=== PATIENT | male | born 1980 | race Two or more races ===

== ENCOUNTER 2024-11-11 19:23 | Inpatient (IN) | payer OTHER ==
[~2024-11-11] VITALS: Ht 182.9 cm; Wt 138.9 kg
--- NOTE | 2024-11-11 20:22 | DVH ---
CHEST RADIOGRAPH Indication: fever, covid + Technique: Single frontal view of the chest was obtained COMPARISON: None FINDINGS: Lines and Tubes: None Lungs: Clear Pleura: No effusion. No pneumothorax. Cardiomediastinal contours: Unremarkable IMPRESSION: No acute disease.
--- NOTE | 2024-11-11 20:24 | DVH ---
CT HEAD WITHOUT CONTRAST INDICATION: blurred vision COMPARISON: None TECHNIQUE: CT of the head without intravenous contrast. RADIATION DOSE: CTDIvol: mGy, DLP: mGy*cm FINDINGS: There is no evidence of intracranial hemorrhage, infarct, extra-axial collection, mass effect, midlin e shift, herniation or hydrocephalus. The ventricles, sulci and cisterns are normal. The owen-white d ifferentiation is intact. Visualized paranasal sinuses and mastoid air cells are clear. Soft tissues and osseous structures are unremarkable. IMPRESSION: No intracranial abnormality identified.
--- NOTE | 2024-11-11 20:25 | ED.PDOC ---
History of Present Illness HPI Comments 44y M who presents to the ED for multiple complaints. Pt states he tested positive for COVID 5 days ago and states since, he has been having multiple symptoms. Pt states he has been having fever, chills, headache, nausea, diarrhea, blurred vision and new onset testicular pain. Pt states his headache started four days ago and stopped yesterday. Pt states he has been having blurred vision which started at 1400 yesterday and states he gets blurred vision when looking with both eyes but states his vision is clear when attempting to cover one eye and use the other. Pt states he has also been having bilateral testicular pain but denies any associated redness, swelling, trauma or urinary symptoms.. Pt states he has noticed over this time period, he has been having generalized malaise and states he has been having decreased appetite with associated nausea when attempting to eat food. Pt otherwise has noted temp of 101.2 F, heart rate 102, but otherwise stable vitals including 02 sat of 96% on room air, rr 18, and BP of 128/83. Pt denies any other symptoms at this time. Chief Complaint: multiple complaints Time Seen by MD: 20:22 Reviewed Notes: Medications, Allergies Allergies: Coded Allergies: NO KNOWN ALLERGIES (Unverified , 11/11/24) Information Source: Patient Mode of Arrival: Ambulatory Past Medical History PAST MEDICAL HISTORY: Denies Surgical History: Denies all surgeries Family History Family History: Reviewed,noncontributory to illness Social History Smoker: Non-Smoker Alcohol: Denies ETOH Use Drugs: Denies Drug Use Lives In: Home Constitutional: reports: chills, fever, malaise, weakness; denies: diaphoresis, fatigue, sweats, others EENTM: reports: blurred vision; denies: double vision, ear bleeding, ear discharge, ear drainage, ear pain, ear ringing, eye pain, eye redness, hearing loss, mouth pain, mouth swelling, nasal discharge, nose bleeding, nose congestion, nose pain, photophobia, tearing, throat pain, throat swelling, voice changes, others Respiratory: denies: cough, hemoptysis, orthopnea, SOB at rest, shortness of breath, SOB with excertion, stridor, wheezing, others Cardiovascular: denies: chest pain, dizzy spells, diaphoresis, Dyspnea on exertion, edema, irregular heart beat, left arm pain, lightheadedness, palpitations, PND, syncope, others Gastrointestinal: reports: diarrhea, nausea; denies: abdomen distended, abdominal pain, blood streaked bowels, constipated, dysphagia, difficulty swallowing, hematemesis, melena, poor appetite, poor fluid intake, rectal bleeding, rectal pain, vomiting, others Genitourinary: reports: testicle pain; denies: burning, dysuria, flank pain, frequency, hematuria, incontinence, penile discharge, penile sore, pain, testicle swelling, urgency, others Neurological: denies: dizziness, fainting, headache, left sided numbness, left sided weakness, numbness, paresthesia, pre-existing deficit, right sided numbness, right sided weakness, seizure, speech problems, tingling, tremors, weakness, others Musculoskeletal: denies: back pain, gout, joint pain, joint swelling, muscle pain, muscle stiffness, neck pain, others Integumetry: denies: bruises, change in color, change in hair/nails, dryness, laceration, lesions, lumps, rash, wounds, others Allergic/Immunocompromised: denies: Difficulty Healing, Frequent Infections, Hives, Itching, others Hematologic/Lymphatic: denies: anemia, blood clots, easy bleeding, easy brui sing, swollen glands, others Endocrine: denies: excessive hunger, excessive sweating, excessive thirst, ex cessive urination, flushing, intolerance to cold, intolerance to heat, unexplained weight gain, unexplained weight loss, others Psychiatric: denies: anxiety, bipolar disorder, depression, hopeless, panic disorder, schizophrenia, sleepless, suicidal, others All Other Systems: Reviewed and Negative Physical Exam General Appearance: Mild Distress, Obese HEENT: PERRL/EOMI, Other (Pupils and face symmetric. Moist mucous membranes) Neck: Full Range of Motion, Non-Tender, Normal Inspection, Supple Respiratory: Lungs Clear, No Accessory Muscle Use, No Respiratory Distress, Normal Breath Sounds Cardiovascular: No Edema, No JVD, Regular Rate/Rhythm Breast Exam: Deferred Gastrointestinal: Non Tender, Soft Genitalia: Testicle (Tender bilaterally. No scrotal edema or discoloration.) Pelvic: Deferred Rectal: Deferred Extremities: Normal inspection, Normal range of motion, Non-tender, No pedal edema Neurologic: Alert (Oriented x4), Normal Affect, Normal Mood, Other (Ambulatory) Cerebellar Function: NOT DONE Reflexes: NOT DONE Skin: Dry, Normal Color, Warm Lymphatic: NOT DONE Was a procedure done? Was a procedure done?: No Differential Dx Considerations may include: CVA, TIA, PNA, viral syndrome, enteritis, electrolyte imbalance, hypovolemia, epididymitis, orchitis, UTI, sepsis, among others X-Ray, Labs, Meds, VS Vital Signs Date Time Temp Pulse Resp B/P (MAP) Pulse Ox O2 Delivery O2 Flow Rate FiO2 11/11/24 22:13 100.5 116 20 113/72 (86) 95 100.5 11/11/24 22:09 Room Air* 0 21 11/11/24 19:40 101.2 122 18 120/83 (95) 96 101.2 Lab Test 11/11/24 20:50 11/11/24 20:15 Range/Units Urine Color Yellow Yellow Urine Clarity Clear Clear Urine pH 6.0 5.0-9.0 Urine Specific [place] 1.021 1.001-1.035 Urine Protein 1+ H Negative Urine Ketones Negative Negative Urine Blood 2+ H Negative /uL Urine Nitrite Negative Negative Urine Bilirubin Negative Negative Urine Urobilinogen 3 H Negative mg/dL Urine Leukocyte Esterase Negative Negative /uL Urine RBC 1 0 - 3 /hpf Urine Microscopic WBC 6 H 0-3 /HPF Urine Squamous Epithelial Cells None seen <5 /hpf Urine Bacteria None seen None Seen /hpf Urine Mucus Few None Seen Urine Glucose 1+ H Normal mg/dL White Blood Count 20.9 H 4.4-10.8 10^3/uL Red Blood Count 4.93 4.5-5.90 10^6/uL Hemoglobin 14.1 13.5-17.5 g/dL Hematocrit 40.0 L 41.0-53.0 % Mean Corpuscular Volume 81.2 80.0-100.0 fL Mean Corpuscular Hemoglobin 28.6 28.0-32.0 pg Mean Corpuscular Hemoglobin Concent 35.2 32.0-36.0 g/dL Red Cell Distribution Width 13.5 11.8-14.3 % Platelet Count 261 140-450 10^3/uL Mean Platelet Volume 8.0 6.9-10.8 fL Neutrophils (%) (Auto) 37.0-80.0 % Lymphocytes (%) (Auto) 10.0-50.0 % Monocytes (%) (Auto) 0.0-12.0 % Basophils (%) (Auto) 0.0-2.0 % Neutrophils # (Auto) 1.6-8.6 10 ^3/uL Lymphocytes # (Auto) 0.4-5.4 10 ^3/uL Monocytes # (Auto) 0-1.3 10 ^3/uL Differential Total Cells Counted 100.0 100 Neutrophils % (Manual) 65 37.0-80.0 Band Neutrophils % (Manual) 18 Lymphocytes % (Manual) 8 L 10.0-50.0 Monocytes % (Manual) 9 0-12 Eosinophils % (Manual) 0 0-7 Basophils % (Manual) 0 0.0-2.0 Metamyelocytes % (manual) 0 Myelocytes % (Manual) 0 Promyelocytes % (Manual) 0 Blast Cells % (Manual) 0 Reactive Lymphocytes 0 Platelet Estimate [place] Large Platelets Few Sodium Level 128 L 136-145 mmol/L Potassium Level 3.1 L 3.5-5.1 mmol/L Chloride Level 97 L 98-107 mmol/L Carbon Dioxide Level 20 20-31 mmol/L Anion Gap 11 5-15 Blood Urea Nitrogen 16 9-23 mg/dL Creatinine 0.92 0.700-1.30 mg/dL Glomerular Filtration Rate Calc 104 >90 mL/min BUN/Creatinine Ratio 17.4 10.0-20.0 Serum Glucose 140 H 74-106 mg/dL Lactic Acid Level 1.7 0.4-2.0 mmol/L Calcium Level 9.1 8.7-10.4 mg/dL Magnesium Level 2.1 1.6-2.6 mg/dL Total Bilirubin 1.1 H 0.2-1.0 mg/dL Aspartate Amino Transferase (AST) 40 13-40 U/L Alanine Aminotransferase (ALT) 40 7-40 U/L Alkaline Phosphatase 107 46-116 U/L Troponin I High Sensitivity 4 </=54 ng/L Total Protein 6.8 5.7-8.2 g/dL Albumin 4.1 3.2-4.8 g/dL Lipase 31 12-53 U/L PROCEDURE(s): HWOCT - HEAD WITHOUT CONTRAST REASON: blurred vision ORDER NUMBER(s): [id number], ACCESSION NUMBER(s): [id number] CT HEAD WITHOUT CONTRAST INDICATION: blurred vision COMPARISON: None TECHNIQUE: CT of the head without intravenous contrast. RADIATION DOSE: CTDIvol: mGy, DLP: mGy*cm FINDINGS: There is no evidence of intracranial hemorrhage, infarct, extra-axial collection, mass effect, midline shift, herniation or hydrocephalus. The ventricles, sulci and cisterns are normal. The owen-white differentiation is intact. Visualized paranasal sinuses and mastoid air cells are clear. Soft tissues and osseous structures are unremarkable. IMPRESSION: No intracranial abnormality identified. EDURE(s): CXR1 - CHEST XRAY 1 VIEW REASON: fever, covid + ORDER NUMBER(s): [id number], ACCESSION NUMBER(s): [id number] CHEST RADIOGRAPH Indication: fever, covid + Technique: Single frontal view of the chest was obtained COMPARISON: None FINDINGS: Lines and Tubes: None Lungs: Clear Pleura: No effusion. No pneumothorax. Cardiomediastinal contours: Unremarkable IMPRESSION: No acute disease. EDURE(s): TESUS - TESTICULAR ULTRASOUND REASON: testicle pain ORDER NUMBER(s): [id number], ACCESSION NUMBER(s): [id number] ULTRASOUND OF SCROTUM AND CONTENTS. INDICATION: testicle pain COMPARISON: None TECHNIQUE: Multiple real-time grayscale sonographic and color and duplex Doppler images of the scrotum and its contents were obtained. FINDINGS: RIGHT TESTICLE: measures 4.8 x 2.6 x 2.9 cm. Trace hydrocele LEFT TESTICLE: Measures 4.7 x 2.6 x 2.7 cm. Trace hydrocele Both testicles demonstrate homogeneous echotexture without evidence of focal lesions. The right epididymal head measures 13.1 cm. Small cystic lesion in the right epididymis. The left epididymal head measures 17.6 cm. Subsequent color and duplex Doppler interrogation of the testes demonstrated symmetric normal vascular flow to both testicles. No focal areas of hyperemia were seen. IMPRESSION: 1. No evidence of torsion, epididymitis, and/or orchitis. 2. Right testicle measures 4.8 cm long. 3. Left testicle measures 4.7 cm long. 4. Small bilateral hydroceles 5 Small right epididymal cyst. X-Ray, Labs, Meds, VS Comment 44-year-old male with no significant past medical history presenting with multiple complaints including testing positive for COVID, testicular pain, nausea, vomiting, vision changes and syncope Vitals remarkable for temperature 101.2, heart rate 122 Exam remarkable for tachycardia and testicular tenderness Rhythm strip independently interpreted by me: Sinus tach, rate 122, no ectopy. CT head and chest x-ray unremarkable Testicular ultrasound: IMPRESSION: 1. No evidence of torsion, epididymitis, and/or orchitis. 2. Right testicle measures 4.8 cm long. 3. Left testicle measures 4.7 cm long. 4. Small bilateral hydroceles 5 Small right epididymal cyst. CBC remarkable for WBC 20.9, CMP remarkable for sodium 128, chloride 97, potassium 3.1, lactate normal, troponin negative, UA remarkable for ketones, blood, WBCs and glucose Patient treated with the following in the ED: 2 L 0.9 normal saline IV bolus, Toradol 30 mg IV, Zofran 4 mg IV, effervescent potassium 50 mEq p.o. On re-evaluation, patient states symptoms have improved. Patient is afebrile and no longer tachycardic. At this time he does not appear septic, as tachycardia resolved with resolution of fever and lactate is normal. Other vitals are stable. Plan is treated with the patient for electrolyte correction, pain and emesis control, possible neurology and urology evaluation. Time of 1ST Reevaluation: 21:00 Reevaluation 1ST: Unchanged Time of 2ND Reevaluation: 23:49 Reevaluation 2ND: Improved Patient Education/Counseling: Diagnosis, Treatment Family Education/Counseling: No Family Present Sepsis Sepsis Reasesment Focused Exam Orders: Laboratory Tests 11/11/24 20:15: Lactic Acid Level 1.7 Departure 1 Departure Time of Disposition: 22:19 Impression: Primary Impression: Leukocytosis Qualified Codes: D72.829 - Elevated white blood cell count, unspecified Additional Impressions: Electrolyte imbalance Testicular pain Qualified Codes: N50.811 - Right testicular pain; N50.812 - Left testicular pain Syncope Visual disturbance Disposition: ADMITTED INPATIENT Admit to: Tele Condition: Guarded Critical Care Note Critical Care Time?: No Stability Stability form required: No Heart Score Heart Score: Heart Score Response (Comments) Value History N/A 0 EKG N/A 0 Age N/A 0 Risk Factors N/A 0 Troponin N/A 0 Total 0 I personally scribed for SUNDAY BAUER MD ([email or web address]) on 11/11/24 at 20:25. Electronically submitted by Velvet Wolf ([facility]). SUNDAY BAUER MD Nov 11, 2024 20:25
[2024-11-11 20:43] LABS: Hematocrit 40.0 % (41.0-53.0); Hemoglobin 14.1 g/dL (13.5-17.5); Mean Corpuscular Hemoglobin 28.6 pg (28.0-32.0); Mean Corpuscular Volume 81.2 fL (80.0-100.0)
[2024-11-11 20:54] LABS: Alanine Aminotransferase 40 U/L (7-40); Albumin 4.1 g/dL (3.2-4.8); Alkaline Phosphatase 107 U/L (46-116); Anion Gap 11 (5-15); BUN/Creatinine Ratio 17.4 (10.0-20.0); Bilirubin, Total 1.1 mg/dL (0.2-1.0); Blood Urea Nitrogen 16 mg/dL (9-23); Calcium 9.1 mg/dL (8.7-10.4); Total Protein 6.8 g/dL (5.7-8.2)
[2024-11-11 20:55] LABS: Carbon Dioxide 20 mmol/L (20-31); Chloride 97 mmol/L (98-107); Glucose 140 mg/dL (74-106); Potassium 3.1 mmol/L (3.5-5.1); Sodium 128 mmol/L (136-145)
--- NOTE | 2024-11-11 21:02 | DVH ---
ULTRASOUND OF SCROTUM AND CONTENTS. INDICATION: testicle pain COMPARISON: None TECHNIQUE: Multiple real-time grayscale sonographic and color and duplex Doppler images of the scrotu m and its contents were obtained. FINDINGS: RIGHT TESTICLE: measures 4.8 x 2.6 x 2.9 cm. Trace hydrocele LEFT TESTICLE: Measures 4.7 x 2.6 x 2.7 cm. Trace hydrocele Both testicles demonstrate homogeneous echotexture without evidence of focal lesions. The right epididymal head measures 13.1 cm. Small cystic lesion in the right epididymis. The left epi didymal head measures 17.6 cm. Subsequent color and duplex Doppler interrogation of the testes demonstrated symmetric normal vascula r flow to both testicles. No focal areas of hyperemia were seen. IMPRESSION: 1. No evidence of torsion, epididymitis, and/or orchitis. 2. Right testicle measures 4.8 cm long. 3. Left testicle measures 4.7 cm long. 4. Small bilateral hydroceles 5 Small right epididymal cyst.
[2024-11-11 21:12] LABS: Total Cells Counted 100.0 (100)
[2024-11-11 21:15] LABS: Urine Protein, UAD 1+ (Negative)
[2024-11-11] MEDS ORDERED: APIXABAN 5 MG TAB PO SCH (22:00)
[2024-11-11] MEDS ORDERED: PIPERACILLIN-TAZOB 3.375GM 100 ML IV ONE (23:30)
[2024-11-11] MEDS ORDERED: VANCOMYCIN PER PHARMACY 0 MG IV SCH (23:30)
[2024-11-11] MEDS ORDERED: SODIUM CHLORIDE 0.9% 1,000 ML IV ONE (23:30)
--- NOTE | 2024-11-11 23:40 | DVHHPRES ---
History of Present Illness Resident Creating Document: AAT WICK RESIDENT History of Present Illness This is a 44 year old male with significant past medical history presented to the ED with a chief complaint of blurred vision and testicular pain since morning prior to this admission. The patient states that 5 days ago he was diagnosed with COVID-19 and since then he has having intermittent fever, chills and highest temperature recorded 101, associated with nausea, 1 episodes of vomiting , diarrhea and urgency. Mentioned that when he was seeing objects with both eyes it it seems blurred but when covered 1 eye and trying to see objects from other eye the vision becomes clear. He was not vaccinated for COVID-19 and never had COVID before. Denied any history of trauma to the scrotum or any urinary urgency, hesitancy, burning sensation in the urine and did not mentioned any position that feels comfortable with the testicular pain. The patient also denied abdominal pain, tenderness, intractable nausea and vomiting, altered bowel habit, positive sick contact or any history of recent traveling. PCP: Parag Horne Past Medical History None Past Surgical History None Family History Nothing contributory Past Social History Nonsmoker, nonalcoholic and never tried any drugs Lives with family Review of Systems Constitutional: No: Fever, Chills, Sweats, Weakness, Malaise, Other Eyes: No: Pain, Vision change, Conjunctivae inflammation, Eyelid inflammation, Other, Redness ENT: No: Ear pain, Ear discharge, Nose pain, Nose discharge, Nose congestion, Mouth pain, Mouth swelling, Throat pain, Throat swelling, Other Respiratory: No: Cough, Dry, Shortness of breath, SOB with excertion, Wheezing, Hemoptysis, Pleuritic Pain, Sputum, Wheezing, Other Cardiovascular: Lt Headedness; No: Chest Pain, Palpitations, Orthopnea, Paroxysmal Noc. Dyspnea, Edema, Other Gastrointestinal: Nausea, Vomiting, Diarrhea; No: Abdominal Pain, Constipation, Melena, Hematochezia, Other Genitourinary: No Dysuria, No Frequency, No Incontinence, No Hematuria, No Retention, No Other Musculoskeletal: No: other, neck pain, shoulder pain, arm pain, back pain, hand pain, leg pain, foot pain Skin: No: Rash, Lesions, Jaundice, Bruising, Other Neurological: No: Weakness, Numbness, Incoordination, Change in speech, Confusion, Seizures, Other Allergies: Coded Allergies: NO KNOWN ALLERGIES (Unverified , 11/11/24) Exam Vital Signs Vital Signs Date Time Temp Pulse Resp B/P (MAP) Pulse Ox O2 Delivery O2 Flow Rate FiO2 11/11/24 22:13 100.5 116 20 113/72 (86) 95 100.5 11/11/24 22:09 Room Air* 0 21 Exam Physical examination: General Appearance: Alert, Oriented X3, Cooperative, No acute distress HEENT: Atraumatic, PERRLA, EOMI, Mucous membrane moist/pink Respiratory: Clear to auscultation, Normal air movement Cardiovascular: Regular rate, Normal S1, Normal S2, No murmurs, no chest wall tenderness Abdominal: Normal bowel sounds, Soft, No tenderness, No hepatospenomegaly, No masses Extremities: No clubbing, No cyanosis, No edema, Normal pulses, No tenderness/swelling Skin: No rashes, No breakdown, No significant lesion Neuro: Normal gait, Normal speech, Strength at 5/5 X4 ext, Normal tone, Sensation intact, Cranial nerves 3-12 NL, Reflexes 2+ Psych/Mental Status: Mental status NL, Mood NL Testicular exam: Absent swelling, tenderness and redness bilaterally Labs/Xrays Labs Test 11/11/24 20:50 11/11/24 20:15 Range/Units Urine Color Yellow Yellow Urine Clarity Clear Clear Urine pH 6.0 5.0-9.0 Urine Specific [place] 1.021 1.001-1.035 Urine Protein 1+ H Negative Urine Ketones Negative Negative Urine Blood 2+ H Negative /uL Urine Nitrite Negative Negative Urine Bilirubin Negative Negative Urine Urobilinogen 3 H Negative mg/dL Urine Leukocyte Esterase Negative Negative /uL Urine RBC 1 0 - 3 /hpf Urine Microscopic WBC 6 H 0-3 /HPF Urine Squamous Epithelial Cells None seen <5 /hpf Urine Bacteria None seen None Seen /hpf Urine Mucus Few None Seen Urine Glucose 1+ H Normal mg/dL White Blood Count 20.9 H 4.4-10.8 10^3/uL Red Blood Count 4.93 4.5-5.90 10^6/uL Hemoglobin 14.1 13.5-17.5 g/dL Hematocrit 40.0 L 41.0-53.0 % Mean Corpuscular Volume 81.2 80.0-100.0 fL Mean Corpuscular Hemoglobin 28.6 28.0-32.0 pg Mean Corpuscular Hemoglobin Concent 35.2 32.0-36.0 g/dL Red Cell Distribution Width 13.5 11.8-14.3 % Platelet Count 261 140-450 10^3/uL Mean Platelet Volume 8.0 6.9-10.8 fL Neutrophils (%) (Auto) 37.0-80.0 % Lymphocytes (%) (Auto) 10.0-50.0 % Monocytes (%) (Auto) 0.0-12.0 % Basophils (%) (Auto) 0.0-2.0 % Neutrophils # (Auto) 1.6-8.6 10 ^3/uL Lymphocytes # (Auto) 0.4-5.4 10 ^3/uL Monocytes # (Auto) 0-1.3 10 ^3/uL Differential Total Cells Counted 100.0 100 Neutrophils % (Manual) 65 37.0-80.0 Band Neutrophils % (Manual) 18 Lymphocytes % (Manual) 8 L 10.0-50.0 Monocytes % (Manual) 9 0-12 Eosinophils % (Manual) 0 0-7 Basophils % (Manual) 0 0.0-2.0 Metamyelocytes % (manual) 0 Myelocytes % (Manual) 0 Promyelocytes % (Manual) 0 Blast Cells % (Manual) 0 Reactive Lymphocytes 0 Platelet Estimate [place] Large Platelets Few Sodium Level 128 L 136-145 mmol/L Potassium Level 3.1 L 3.5-5.1 mmol/L Chloride Level 97 L 98-107 mmol/L Carbon Dioxide Level 20 20-31 mmol/L Anion Gap 11 5-15 Blood Urea Nitrogen 16 9-23 mg/dL Creatinine 0.92 0.700-1.30 mg/dL Glomerular Filtration Rate Calc 104 >90 mL/min BUN/Creatinine Ratio 17.4 10.0-20.0 Serum Glucose 140 H 74-106 mg/dL Lactic Acid Level 1.7 0.4-2.0 mmol/L Calcium Level 9.1 8.7-10.4 mg/dL Total Bilirubin 1.1 H 0.2-1.0 mg/dL Aspartate Amino Transferase (AST) 40 13-40 U/L Alanine Aminotransferase (ALT) 40 7-40 U/L Alkaline Phosphatase 107 46-116 U/L Troponin I High Sensitivity 4 </=54 ng/L Total Protein 6.8 5.7-8.2 g/dL Albumin 4.1 3.2-4.8 g/dL Assessment/Plan Assessment/Plan Assessment and plan: # Sepsis likely secondary to sigmoid diverticulitis with perforation # Acute sigmoid diverticulitis with perforation # Hyperbilirubinemia likely due to sepsis - Patient was initially presented with febrile, tachypneic, tachycardic and elevated WBC count - CT abdomen pelvis showed there is sigmoid diverticulosis with a segment of sigmoid colon demonstrating bowel wall thickening and considerable inflammatory changes along with small amount of free fluid and multiple locules of free air consistent with perforation. - Stat surgical consult, spoke with Dr. Rodriguez discussed patient's condition and jose manuel stacy his recommendation. - NPO - IV N/S 2L bolus given and followed by IV N/S @ 120 ml/hr - Pending blood culture, urine bacterial culture - IV vancomycin as per pharmacy and IV Zosyn 3.375 g Q 8 hours. # Testicular pain likely referred pain from intraabdominal pathology, ruled out torsion/ epididymitis - Testicular U/S showed no evidence of torsion, epididymitis, and/or orchitis. Right testicle measures 4.8 cm long. Left testicle measures 4.7 cm long. Small bilateral hydrocele and Small right epididymal cyst. # Blurred vision likely due to amblyopia, ruled out stroke - CT head without contrast demonstrated normal study # Hypokalemia, hyponatremia and hypochloremia - Replenished # DVT prophylaxis - Not recommended Goal of care discussed with the patient for more than 20 minutes full code Plan discussed with Dr. Ashraf Plan discussed with: Patient, Other (RN) My Orders Orders - ATA WICK RESIDENT Procedure Category Date Status Time Admit ADMIT 11/11/24 Transmitted 23:29 Ct Ab Pel Wo Con-No CT 11/11/24 Logged Oral Or Iv 23:29 Magnesium LAB 11/11/24 Transmitted 23:29 NS PHA 11/11/24 Transmitted 23:30 Vancomycin Per PHA 11/11/24 Transmitted Pharmacy 23:30 Zosyn Extended PHA 11/11/24 Transmitted Infusion 23:30 Zosyn Extended PHA 11/12/24 Transmitted Infusion 06:00 Lipase LAB 11/11/24 Transmitted 23:29 Mrsa Screen GEORGETTE 11/11/24 Transmitted 23:29 Rapid Influenza A&B LAB 11/11/24 Transmitted 23:29 Date of Service: Nov 11, 2024 Billing Provider: JAMES ASHRAF MD Common Visit Codes: [id number] INP/OBS CARE (HIGH) ATA WICK RESIDENT Nov 11, 2024 23:40 JAMES ASHRAF MD Nov 12, 2024 21:47
[2024-11-11] MEDS: VANCOMYCIN 1GM/250mL NS or D5W KIT IV SCH (23:45)
[2024-11-11 23:54] LABS: Lipase 31.0 U/L (12-53)
[2024-11-11 23:55] LABS: Magnesium 2.1 mg/dL (1.6-2.6)
--- NOTE | 2024-11-12 00:10 | DVH ---
Exam: CT CT AB PEL WO CON-NO ORAL OR IV History: abdominal pain Comparison Study: None Technique: Multidetector spiral CT of the abdomen was performed from lung bases to pubic symphysis. Imaging was performed without IV contrast. Axial, coronal and sagittal multiplanar reformats were ob tained from the axial data set by the technologist. Radiation Dose : 1. Abdomen/Pelvis: CTDIvol 26.93 mGy, DLP 1697.32 mGy*cm. Findings: Evaluation of solid organs is limited due to lack of intravenous contrast use. Lung Bases: No abnormality demonstrated. Liver: Liver is normal in size. No focal lesions noted. Gallbladder and Biliary Tree: No abnormality demonstrated. Spleen: No abnormality demonstrated. Pancreas: No abnormality demonstrated. Adrenal Glands: No abnormality demonstrated. Kidneys: No abnormality demonstrated. Bladder: Grossly unremarkable for degree of distention. Bowel: Stomach appears grossly unremarkable. No abnormally dilated loops of large or small bowel no emery. There is sigmoid diverticulosis with a segment of sigmoid colon demonstrating bowel wall thicke charlie and considerable inflammatory changes along with small amount of free fluid and multiple locule s of free air consistent with perforation. Appendix appears unremarkable. Lymphadenopathy: No evidence of lymphadenopathy. Abdominal Wall and Mesentery: Small bilateral fat containing inguinal hernias. Vasculature: Unremarkable. Pelvic Organs: Unremarkable. Musculoskeletal: No bony lesions or fracture. IMPRESSION: 1. Sigmoid diverticulitis with evidence of perforation. 2. Radiation optimization: All CT scans at this facility use at least one of these dose optimization techniques: automated exposure control mA and/or kV adjustment per patient size (includes targeted e xams where dose is matched to clinical indication) or iterative reconstruction.
[2024-11-12] MEDS: SODIUM CHLORIDE 0.9% 2,000 ML IV ONE (00:41)
[2024-11-12 01:00] VITALS: BP 133/85; PULSE 115; RESP 20; O2SAT 93
[2024-11-12] MEDS: ACETAMINOPHEN 500 MG TAB or CAP PO ONE (01:14)
[2024-11-12] MEDS: KETOROLAC TROMETH 30 MG/ML 1ML VIAL IV ONE (01:15)
[2024-11-12 01:17] LABS: COVID19 ANTIGEN SOFIA FIA NEGATIVE (NEGATIVE)
[2024-11-12] MEDS: POTASSIUM EFFERVESENT TAB 25 MEQ PO ONE (01:19)
[2024-11-12] MEDS: PIPERACILLIN-TAZOB 3.375GM 100 ML IV SCH (01:42)
[2024-11-12] MEDS: MORPHINE SULFATE INJ 2 MG/ml SYRG IV PRN (01:52)
[2024-11-12] MEDS: MORPHINE SULFATE 4 MG/ML SYR/VIAL ONE ×2 (01:53→08:10)
[2024-11-12] MEDS: LACTATED RINGER'S 2,000 ML IV ONE (03:16)
[2024-11-12 05:54] LABS: Hematocrit 35.3 % (41.0-53.0); Hemoglobin 12.3 g/dL (13.5-17.5); Mean Corpuscular Hemoglobin 28.4 pg (28.0-32.0); Mean Corpuscular Volume 81.6 fL (80.0-100.0); Nucleated Red Blood Cells % 0.0 %
[2024-11-12 05:58] LABS: Anion Gap 7 (5-15); Calcium 8.9 mg/dL (8.7-10.4); Carbon Dioxide 24 mmol/L (20-31)
[2024-11-12] MEDS ORDERED: PIPERACILLIN-TAZOB 3.375GM 100 ML IV SCH ×2 (06:00)
[2024-11-12] MEDS: VANCOMYCIN 1GM/200ML PM 200 ML IV SCH (06:00)
[2024-11-12 06:02] LABS: INR 1.14 (0.9-1.15); Partial Thromboplastin Time 28.7 SEC (24.5-34.5); Prothrombin Time 11.9 sec (9.3-11.8)
[2024-11-12 06:03] LABS: BUN/Creatinine Ratio 18.4 (10.0-20.0); Blood Urea Nitrogen 18 mg/dL (9-23)
[2024-11-12 06:07] LABS: Chloride 98 mmol/L (98-107); Glucose 161 mg/dL (74-106); Potassium 3.2 mmol/L (3.5-5.1); Sodium 129 mmol/L (136-145)
[2024-11-12] MEDS: POTASSIUM CHL 20MEQ/100ML 100 ML IV SCH (07:30)
[2024-11-12] MEDS: POTASSIUM CHL 20MEQ/100ML 100 ML IV ONE (07:39)
[2024-11-12] MEDS: SODIUM CHLORIDE 0.9% 1,000 ML IV ONE ×2 (08:06→09:09)
[2024-11-12] MEDS: ONDANSETRON HCL 4 MG/2 ML VIAL IV PRN (08:09)
--- NOTE | 2024-11-12 09:34 | DVHINCON2 ---
Date of service: Nov 12, 2024 History of Present Illness 44-year-old male without significant past medical history complaining of initial lower quadrant abdominal pain five days ago that resolved three days ago however noted that he has had fevers and chills. He was also complaining of testicular pain. Denies any nausea or vomiting. Past Medical History None Past Surgical History None Family History Noncontributory Social History Denies alcohol, tobacco, IV drug use Allergies: Coded Allergies: NO KNOWN ALLERGIES (Unverified , 11/11/24) Current Medications Current Medications Medications (Trade) Dose Ordered Sig/Edis Route PRN Reason Start Time Stop Time Status Last Admin Vancomycin HCl 0 ml @ 0 mls/hr UD IV 11/11/24 23:30 UNV Piperacillin Sod/ Tazobactam Sod 100 ml @ 25 mls/hr Q8HR IV 11/12/24 06:00 11/12/24 01:22 DC Vancomycin HCl 250 ml @ 250 mls/hr Q1H IV 11/11/24 23:45 11/12/24 01:44 DC Acetaminophen (Tylenol Tablet) 650 mg Q6HPRN PRN PO PAIN SCALE 1 THRU 6 11/11/24 23:45 Morphine Sulfate 2 mg Q4HPRN PRN IV MODERATE PAIN (4-6 PAIN SCALE) 11/12/24 01:15 11/12/24 08:10 Piperacillin Sod/ Tazobactam Sod 100 ml @ 25 mls/hr Q8HR IV 11/12/24 06:00 UNV Piperacillin Sod/ Tazobactam Sod 100 ml @ 25 mls/hr Q8HR IV 11/12/24 01:30 11/12/24 09:09 Potassium Chloride 100 ml @ 50 mls/hr Q2H IV 11/12/24 01:30 11/12/24 05:29 DC 11/12/24 09:09 Vancomycin HCl 200 ml @ 200 mls/hr Q1H IV 11/12/24 05:15 11/12/24 07:14 DC 11/12/24 07:30 Ondansetron HCl (Zofran) 4 mg Q4HPRN PRN IV NAUSEA / VOMITING 11/12/24 07:45 11/12/24 08:09 Vital Signs Vital Signs Date Time Temp Pulse Resp B/P (MAP) Pulse Ox O2 Delivery O2 Flow Rate FiO2 11/12/24 09:06 121 19 108/62 11/12/24 08:14 98.2 97 98.2 11/11/24 22:09 Room Air* 0 21 Physical Exam GEN: Heavy said age-appropriate male in no acute distress. Alert. HEENT: Normocephalic atraumatic. Moist mucous membranes. Anicteric sclerae. CV: Slightly tachycardic but regular rhythm Respiratory: CTAB ABD: Very minimal suprapubic tenderness to palpation without guarding or rebound. All the obese abdomen. CT of the abdomen and pelvis: Sigmoid diverticulitis with considerable inflammatory changes with small amount of free fluid and multiple locules of free air consistent with perforation. Appendix appears normal. Labs/Diagnostic Data Labs Test 11/12/24 05:18 11/12/24 03:08 11/12/24 00:25 11/11/24 20:50 Range/Units White Blood Count 18.4 H 4.4-10.8 10^3/uL Red Blood Count 4.33 L 4.5-5.90 10^6/uL Hemoglobin 12.3 L 13.5-17.5 g/dL Hematocrit 35.3 #L 41.0-53.0 % Mean Corpuscular Volume 81.6 80.0-100.0 fL Mean Corpuscular Hemoglobin 28.4 28.0-32.0 pg Mean Corpuscular Hemoglobin Concent 34.9 32.0-36.0 g/dL Red Cell Distribution Width 13.6 11.8-14.3 % Platelet Count 229 140-450 10^3/uL Mean Platelet Volume 8.2 6.9-10.8 fL Neutrophils (%) (Auto) 88.3 H 37.0-80.0 % Lymphocytes (%) (Auto) 3.8 L 10.0-50.0 % Monocytes (%) (Auto) 7.6 0.0-12.0 % Eosinophils (%) (Auto) 0.1 0.0-7.0 % Basophils (%) (Auto) 0.2 0.0-2.0 % Neutrophils # (Auto) 16.2 H 1.6-8.6 10 ^3/uL Lymphocytes # (Auto) 0.7 0.4-5.4 10 ^3/uL Monocytes # (Auto) 1.4 H 0-1.3 10 ^3/uL Eosinophils # (Auto) 0 0-0.8 10 ^3/uL Basophils # (Auto) 0 0-0.2 10 ^3/uL Nucleated Red Blood Cells 0.0 % Prothrombin Time 11.9 H 9.3-11.8 sec Prothrombin Time INR 1.14 0.9-1.15 Activated Partial Thromboplast Time 28.7 24.5-34.5 SEC Sodium Level 129 L 136-145 mmol/L Potassium Level 3.2 L 3.5-5.1 mmol/L Chloride Level 98 98-107 mmol/L Carbon Dioxide Level 24 20-31 mmol/L Anion Gap 7 5-15 Blood Urea Nitrogen 18 9-23 mg/dL Creatinine 0.98 0.700-1.30 mg/dL Glomerular Filtration Rate Calc 96 >90 mL/min BUN/Creatinine Ratio 18.4 10.0-20.0 Serum Glucose 161 H 74-106 mg/dL Calcium Level 8.9 8.7-10.4 mg/dL Troponin I High Sensitivity < 3 L </=54 ng/L Influenza Type A Antigen Negative Negative Influenza Type B Antigen Negative Negative SARS-CoV-2 Antigen (Rapid) Negative NEGATIVE Urine Color Yellow Yellow Urine Clarity Clear Clear Urine pH 6.0 5.0-9.0 Urine Specific [place] 1.021 1.001-1.035 Urine Protein 1+ H Negative Urine Ketones Negative Negative Urine Blood 2+ H Negative /uL Urine Nitrite Negative Negative Urine Bilirubin Negative Negative Urine Urobilinogen 3 H Negative mg/dL Urine Leukocyte Esterase Negative Negative /uL Urine RBC 1 0 - 3 /hpf Urine Microscopic WBC 6 H 0-3 /HPF Urine Squamous Epithelial Cells None seen <5 /hpf Urine Bacteria None seen None Seen /hpf Urine Mucus Few None Seen Urine Glucose 1+ H Normal mg/dL Test 11/11/24 20:15 Range/Units Differential Total Cells Counted 100.0 100 Neutrophils % (Manual) 65 37.0-80.0 Band Neutrophils % (Manual) 18 Lymphocytes % (Manual) 8 L 10.0-50.0 Monocytes % (Manual) 9 0-12 Eosinophils % (Manual) 0 0-7 Basophils % (Manual) 0 0.0-2.0 Metamyelocytes % (manual) 0 Myelocytes % (Manual) 0 Promyelocytes % (Manual) 0 Blast Cells % (Manual) 0 Reactive Lymphocytes 0 Platelet Estimate [place] Large Platelets Few Lactic Acid Level 1.7 0.4-2.0 mmol/L Magnesium Level 2.1 1.6-2.6 mg/dL Total Bilirubin 1.1 H 0.2-1.0 mg/dL Aspartate Amino Transferase (AST) 40 13-40 U/L Alanine Aminotransferase (ALT) 40 7-40 U/L Alkaline Phosphatase 107 46-116 U/L Total Protein 6.8 5.7-8.2 g/dL Albumin 4.1 3.2-4.8 g/dL Lipase 31 12-53 U/L Assessment 1. Sigmoid diverticulitis with small microperforation but clinically stable. Plan/Recommendation 1. NPO and IV fluid resuscitation. 2. Continue with broad-spectrum IV antibiotics. We will try conservative treatment with antibiotics 1st however if his clinical situation worsens, may need surgical intervention. 3. Signed out to Dr. Hardin this morning. Plan discussed with: Patient ELIAN BAXTER MD Nov 12, 2024 09:34
--- NOTE | 2024-11-12 13:07 | PRN ---
Misceleneous Note Note Note Surgical care taken over for Dr. Rodriguez who saw pt earlier this morning 44m who presented w L groin pain, w/u revealed uncomplicated sigmoid diverticulitis, apparently 1st episode nontoxic, afebrile, sinus tachy, WBC 20 abd exam fairly benign, mild LLQ tenderness but no jamee/guarding continue trial of nonoperative management w bowel rest, ABX serial abd exam, serial labs OOB and ambulate avoid narcotics if able to manage current episode conservatively, will need GI f/u for colonoscopy in 6-8wks and dietary counseling (ie initial course of low fiber diet followed by high fiber diet after recovery period) VTE ppx, chemical ppx ok from surgical standpoint Sofia Hardin MD [phone] Imaging Results: sigmoid diverticulitis, no abscess, trace pneumoperitoneum Laboratory Results Test 11/12/24 05:18 11/12/24 03:08 11/12/24 00:25 11/11/24 20:50 White Blood Count 18.4 10^3/uL (4.4-10.8) Red Blood Count 4.33 10^6/uL (4.5-5.90) Hemoglobin 12.3 g/dL (13.5-17.5) Hematocrit 35.3 % (41.0-53.0) Mean Corpuscular Volume 81.6 fL (80.0-100.0) Mean Corpuscular Hemoglobin 28.4 pg (28.0-32.0) Mean Corpuscular Hemoglobin Concent 34.9 g/dL (32.0-36.0) Red Cell Distribution Width 13.6 % (11.8-14.3) Platelet Count 229 10^3/uL (140-450) Mean Platelet Volume 8.2 fL (6.9-10.8) Neutrophils (%) (Auto) 88.3 % (37.0-80.0) Lymphocytes (%) (Auto) 3.8 % (10.0-50.0) Monocytes (%) (Auto) 7.6 % (0.0-12.0) Eosinophils (%) (Auto) 0.1 % (0.0-7.0) Basophils (%) (Auto) 0.2 % (0.0-2.0) Neutrophils # (Auto) 16.2 10 ^3/uL (1.6-8.6) Lymphocytes # (Auto) 0.7 10 ^3/uL (0.4-5.4) Monocytes # (Auto) 1.4 10 ^3/uL (0-1.3) Eosinophils # (Auto) 0 10 ^3/uL (0-0.8) Basophils # (Auto) 0 10 ^3/uL (0-0.2) Nucleated Red Blood Cells 0.0 % Prothrombin Time 11.9 sec (9.3-11.8) Prothrombin Time INR 1.14 (0.9-1.15) Activated Partial Thromboplast Time 28.7 SEC (24.5-34.5) Sodium Level 129 mmol/L (136-145) Potassium Level 3.2 mmol/L (3.5-5.1) Chloride Level 98 mmol/L (98-107) Carbon Dioxide Level 24 mmol/L (20-31) Anion Gap 7 (5-15) Blood Urea Nitrogen 18 mg/dL (9-23) Creatinine 0.98 mg/dL (0.700-1.30) Glomerular Filtration Rate Calc 96 mL/min (>90) BUN/Creatinine Ratio 18.4 (10.0-20.0) Serum Glucose 161 mg/dL (74-106) Calcium Level 8.9 mg/dL (8.7-10.4) Troponin I High Sensitivity < 3 ng/L (</=54) Influenza Type A Antigen Negative (Negative) Influenza Type B Antigen Negative (Negative) SARS-CoV-2 Antigen (Rapid) Negative (NEGATIVE) Urine Color Yellow (Yellow) Urine Clarity Clear (Clear) Urine pH 6.0 (5.0-9.0) Urine Specific [place] 1.021 (1.001-1.035) Urine Protein 1+ (Negative) Urine Ketones Negative (Negative) Urine Blood 2+ /uL (Negative) Urine Nitrite Negative (Negative) Urine Bilirubin Negative (Negative) Urine Urobilinogen 3 mg/dL (Negative) Urine Leukocyte Esterase Negative /uL (Negative) Urine RBC 1 /hpf (0 - 3) Urine Microscopic WBC 6 /HPF (0-3) Urine Squamous Epithelial Cells None seen /hpf (<5) Urine Bacteria None seen /hpf (None Seen) Urine Mucus Few (None Seen) Urine Glucose 1+ mg/dL (Normal) Test 11/11/24 20:15 Differential Total Cells Counted 100.0 (100) Neutrophils % (Manual) 65 (37.0-80.0) Band Neutrophils % (Manual) 18 Lymphocytes % (Manual) 8 (10.0-50.0) Monocytes % (Manual) 9 (0-12) Eosinophils % (Manual) 0 (0-7) Basophils % (Manual) 0 (0.0-2.0) Metamyelocytes % (manual) 0 Myelocytes % (Manual) 0 Promyelocytes % (Manual) 0 Blast Cells % (Manual) 0 Reactive Lymphocytes 0 Platelet Estimate [place] Large Platelets Few Lactic Acid Level 1.7 mmol/L (0.4-2.0) Magnesium Level 2.1 mg/dL (1.6-2.6) Total Bilirubin 1.1 mg/dL (0.2-1.0) Aspartate Amino Transferase (AST) 40 U/L (13-40) Alanine Aminotransferase (ALT) 40 U/L (7-40) Alkaline Phosphatase 107 U/L (46-116) Total Protein 6.8 g/dL (5.7-8.2) Albumin 4.1 g/dL (3.2-4.8) Lipase 31 U/L (12-53) Other Laboratory Tests 11/12/24 05:18 SOFIA HARDIN MD Nov 12, 2024 13:07
--- NOTE | 2024-11-12 14:51 | DVHPN2 ---
Subjective Patient continues to report having some abdominal and scrotal discomfort Reviewed: Care Plan, H&P, Labs, Medications Changes from previous H/P or p: No Changes General: Per HPI Eyes: No Pain, No Vision change, No Conjunctivae inflammation, No Eyelid inflammation, No Other, No Redness ENT: No Ear pain, No Ear discharge, No Nose pain, No Nose discharge, No Nose congestion, No Mouth pain, No Mouth swelling, No Throat pain, No Throat swelling, No Other Cardiovascular: No Chest Pain, No Palpitations, No Orthopnea, No Paroxysmal Noc. Dyspnea, No Edema; Lt Headedness; No Other Respiratory: No Cough, No Dry, No Shortness of breath, No SOB with excertion, No Wheezing, No Hemoptysis, No Pleuritic Pain, No Sputum, No Other Gastrointestinal: Nausea, Vomiting; No Abdominal Pain; Diarrhea; No Constipation, No Melena, No Hematochezia, No Other Genitourinary: No Dysuria, No Frequency, No Incontinence, No Hematuria, No Retention, No Other Musculoskeletal: No other, No neck pain, No shoulder pain, No arm pain, No back pain, No hand pain, No leg pain, No foot pain Skin: No Rash, No Lesions, No Jaundice, No Bruising, No Other Objective Vitals Vital Signs Date Time Temp Pulse Resp B/P (MAP) Pulse Ox O2 Delivery O2 Flow Rate FiO2 11/12/24 12:00 98.9 131 26 109/71 (84) 97 98.9 11/11/24 22:09 Room Air* 0 21 Intake/Output Intake and Output 11/12/24 07:00 Output Total 300 ml Balance -300 ml Output Urine Total 300 ml General Appearance: Alert, Oriented X3, Cooperative HEENT: Atraumatic, PERRLA Lungs: Clear to auscultation, Normal air movement Cardiovascular: Normal S1, Normal S2, Other (Sinus tachycardia) Abdomen: Normal bowel sounds, Soft, No tenderness, No hepatospenomegaly Musculoskeletal: Normal sensory function, Normal motor function Neuro: Cranial nerves 3-12 NL Skin: Dry, Intact Psych/Mental Status: Mental status NL, Mood NL Medications Current Medications Medications Dose Ordered Sig/Edis Route Start Time Stop Time Status Last Admin Dose Admin Vancomycin HCl 0 ml @ 0 mls/hr UD IV 11/11/24 23:30 Acetaminophen 650 mg Q6HPRN PRN PO 11/11/24 23:45 Morphine Sulfate 2 mg Q4HPRN PRN IV 11/12/24 01:15 11/12/24 08:10 2 MG Piperacillin Sod/ Tazobactam Sod 100 ml @ 25 mls/hr Q8HR IV 11/12/24 06:00 UNV Piperacillin Sod/ Tazobactam Sod 100 ml @ 25 mls/hr Q8HR IV 11/12/24 01:30 11/12/24 09:09 25 MLS/HR Ondansetron HCl 4 mg Q4HPRN PRN IV 11/12/24 07:45 11/12/24 08:09 4 MG Vancomycin HCl 250 ml @ 200 mls/hr Q8H IV 11/12/24 20:00 Potassium Chloride/Dextrose/ Sod Cl 1,000 ml @ 100 mls/hr Q10H IV 11/12/24 14:15 Pantoprazole Sodium 40 mg DAILY IV 11/13/24 10:00 Laboratory Results Laboratory Tests 11/12/24 05:18 Chemistry Test 11/11/24 20:15 11/12/24 05:18 Albumin 4.1 g/dL (3.2-4.8) Calcium Level 9.1 mg/dL (8.7-10.4) 8.9 mg/dL (8.7-10.4) Magnesium Level 2.1 mg/dL (1.6-2.6) Total Protein 6.8 g/dL (5.7-8.2) Coagulation Test 11/12/24 05:18 Prothrombin Time 11.9 sec (9.3-11.8) H Prothrombin Time INR 1.14 (0.9-1.15) Activated Partial Thromboplast Time 28.7 SEC (24.5-34.5) Lipid panel Test 11/11/24 20:15 Lipase 31 U/L (12-53) LFT Test 11/11/24 20:15 Alanine Aminotransferase (ALT) 40 U/L (7-40) Alkaline Phosphatase 107 U/L (46-116) Aspartate Amino Transferase (AST) 40 U/L (13-40) Total Bilirubin 1.1 mg/dL (0.2-1.0) H Urinalysis Test 11/11/24 20:50 Urine Color Yellow (Yellow) Urine Clarity Clear (Clear) Urine pH 6.0 (5.0-9.0) Urine Specific [place] 1.021 (1.001-1.035) Urine Protein 1+ (Negative) H Urine Ketones Negative (Negative) Urine Blood 2+ /uL (Negative) H Urine Nitrite Negative (Negative) Urine Bilirubin Negative (Negative) Urine Urobilinogen 3 mg/dL (Negative) H Urine Leukocyte Esterase Negative /uL (Negative) Urine RBC 1 /hpf (0 - 3) Urine Microscopic WBC 6 /HPF (0-3) H Urine Squamous Epithelial Cells None seen /hpf (<5) Urine Bacteria None seen /hpf (None Seen) Urine Mucus Few (None Seen) Urine Glucose 1+ mg/dL (Normal) H Labs and/or images reviewed: Labs reviewed by me, Image(s) reviewed by me Assessment/Plan Assessment/Plan Impression: -severe sepsis secondary to perforated diverticulitis -obesity -hypokalemia -hyponatremia Plan: -long discussion made with the patient regarding plan of care. Apparently, surgery has seen the patient and his often for nonsurgical intervention at this time which I agree with. Patient also told that he will remain NPO, until evidence of his sigmoid perforation has resolved. -continue current antibiotic therapy -PPI -change IV fluids to D5 NS with 40 mEq of potassium chloride -pain management -repeat labs in a.m. -consider CT scan with IV contrast in 1-2 days Total time spent with patient discussing and formulating plan of care: 35 minutes. This medical document was created using an electronic medical record system with [employer] dictation system. Although this document has been carefully reviewed, there may still be some phonetic and typographical errors. These areas are purely typographical due to imperfections of the software programs, and do not reflect any compromise in the patient's medical care. Plan discussed with: Patient, Other (RN) My Orders Orders - SANDRA GOODMAN NP Procedure Category Date Status Time D5w/ Sod Chl 0.9%/Kcl PHA 11/12/24 In Process 20meq 14:15 Basic Metabolic Panel LAB 11/13/24 Verified 04:00 Pantoprazole PHA 11/13/24 In Process (Protonix) 10:00 Drug Screen LAB 11/12/24 Verified 14:45 NS PHA 11/12/24 Verified 14:45 Date of Service: Nov 12, 2024 Billing Provider: SANDRA GOODMAN NP Common Visit Codes: [id number] INP/OBS CARE(HIGH) SANDRA GOODMAN NP Nov 12, 2024 14:51
[2024-11-12] MEDS: D5W/ SOD CHL 0.9%/KCL 20MEQ 1,000 ML IV SCH (15:00)
[2024-11-12] MEDS: SODIUM CHLORIDE 0.9% 500 ML IV ONE (15:02)
[2024-11-12] MEDS: MORPHINE SULFATE 4 MG/ML SYR/VIAL IV PRN (16:34)
[2024-11-12 18:50] VITALS: BP 130/79; PULSE 116; PULSE 119; RESP 18; RESP 20; TEMP 101.2; O2SAT 96
[2024-11-12 20:00] VITALS: PULSE 80
[2024-11-12] MEDS: VANCOMYCIN 1.25GM/250ML 250 ML IV SCH (20:27)
[2024-11-12 21:00] VITALS: BP 128/85; PULSE 116; RESP 18; TEMP 100.7; O2SAT 96
[2024-11-13] VITALS (8 sets, daily range): BP systolic 109–135; BP diastolic 70–88; PULSE 98–111; RESP 18–21; TEMP 97.8–100.7; O2SAT 94–98
[2024-11-13 06:59] LABS: Hematocrit 34.3 % (41.0-53.0); Hemoglobin 12.0 g/dL (13.5-17.5); Mean Corpuscular Hemoglobin 28.6 pg (28.0-32.0); Mean Corpuscular Volume 82.1 fL (80.0-100.0); Nucleated Red Blood Cells % 0.0 %
[2024-11-13 07:01] LABS: Anion Gap 7 (5-15); Carbon Dioxide 23 mmol/L (20-31); Chloride 103 mmol/L (98-107)
[2024-11-13 07:08] LABS: BUN/Creatinine Ratio 22.7 (10.0-20.0); Blood Urea Nitrogen 15 mg/dL (9-23)
[2024-11-13 07:14] LABS: Calcium 7.8 mg/dL (8.7-10.4); Glucose 116 mg/dL (74-106); Potassium 3.4 mmol/L (3.5-5.1); Sodium 133 mmol/L (136-145)
[2024-11-13] MEDS: PANTOPRAZOLE 40 MG/10 ML VIAL INJ IV SCH (09:15)
--- NOTE | 2024-11-13 09:33 | DVHPN2 ---
Progress Note Date Seen: Nov 13, 2024 Medical Necessity Reason Pt with a Central, PICC or Fol: No Objective vital signs Vital Sign Date Time Temp Pulse Resp B/P (MAP) Pulse Ox O2 Delivery O2 Flow Rate FiO2 11/13/24 05:26 62 18 125/78 11/13/24 05:00 97.8 94 97.8 11/12/24 18:50 Room Air* 0 21 Total Intake and Output 11/12/24 11/12/24 11/13/24 15:00 23:00 07:00 Intake Total 6670 ml 900 ml 0 ml Output Total 600 ml 3 ml Balance 6070 ml 900 ml -3 ml medications Current Medications Medications Dose Ordered Sig/Edis Route Start Time Stop Time Status Last Admin Dose Admin Vancomycin HCl 0 ml @ 0 mls/hr UD IV 11/11/24 23:30 Acetaminophen 650 mg Q6HPRN PRN PO 11/11/24 23:45 Piperacillin Sod/ Tazobactam Sod 100 ml @ 25 mls/hr Q8HR IV 11/12/24 06:00 UNV Piperacillin Sod/ Tazobactam Sod 100 ml @ 25 mls/hr Q8HR IV 11/12/24 01:30 11/13/24 06:06 25 MLS/HR Ondansetron HCl 4 mg Q4HPRN PRN IV 11/12/24 07:45 11/12/24 16:33 4 MG Vancomycin HCl 250 ml @ 200 mls/hr Q8H IV 11/12/24 20:00 11/13/24 04:17 200 MLS/HR Potassium Chloride/Dextrose/ Sod Cl 1,000 ml @ 100 mls/hr Q10H IV 11/12/24 14:15 11/13/24 09:17 100 MLS/HR Pantoprazole Sodium 40 mg DAILY IV 11/13/24 10:00 11/13/24 09:15 40 MG Morphine Sulfate 2 mg Q4HPRN PRN IV 11/12/24 16:45 11/13/24 04:56 2 MG laboratory and microbiology Laboratory Tests 11/13/24 05:03 Test 11/13/24 05:03 Range/Units Serum Glucose 116 H 74-106 mg/dL Problem List/Assessment/Plan Problem List/Assessment/Plan 11/13/24feels well, abdomen non tender, ;leukocytosis, continue, as is, repeat CT scan in 48 hours Plan discussed with: Patient DANA CHOW MD Nov 13, 2024 09:33
--- NOTE | 2024-11-13 10:21 | DVHPN2 ---
Subjective Patient continues to report having some abdominal and scrotal discomfort Reviewed: Care Plan, H&P, Labs, Medications Changes from previous H/P or p: No Changes General: Per HPI Eyes: No Pain, No Vision change, No Conjunctivae inflammation, No Eyelid inflammation, No Other, No Redness ENT: No Ear pain, No Ear discharge, No Nose pain, No Nose discharge, No Nose congestion, No Mouth pain, No Mouth swelling, No Throat pain, No Throat swelling, No Other Cardiovascular: No Chest Pain, No Palpitations, No Orthopnea, No Paroxysmal Noc. Dyspnea, No Edema; Lt Headedness; No Other Respiratory: No Cough, No Dry, No Shortness of breath, No SOB with excertion, No Wheezing, No Hemoptysis, No Pleuritic Pain, No Sputum, No Other Gastrointestinal: Nausea, Vomiting; No Abdominal Pain; Diarrhea; No Constipation, No Melena, No Hematochezia, No Other Genitourinary: No Dysuria, No Frequency, No Incontinence, No Hematuria, No Retention, No Other Musculoskeletal: No other, No neck pain, No shoulder pain, No arm pain, No back pain, No hand pain, No leg pain, No foot pain Skin: No Rash, No Lesions, No Jaundice, No Bruising, No Other Objective Vitals Vital Signs Date Time Temp Pulse Resp B/P (MAP) Pulse Ox O2 Delivery O2 Flow Rate FiO2 11/13/24 09:00 98.2 104 19 122/88 (99) 98 98.2 11/12/24 18:50 Room Air* 0 21 Intake/Output Intake and Output 11/13/24 07:00 Intake Total 7570 ml Output Total 603 ml Balance 6967 ml Intake Oral 0 ml IV Total 7570 ml Output Urine Total 603 ml General Appearance: Alert, Oriented X3, Cooperative HEENT: Atraumatic, PERRLA Lungs: Clear to auscultation, Normal air movement Cardiovascular: Normal S1, Normal S2, Other (Sinus tachycardia) Abdomen: Normal bowel sounds, Soft, No tenderness, No hepatospenomegaly Musculoskeletal: Normal sensory function, Normal motor function Neuro: Cranial nerves 3-12 NL Skin: Dry, Intact Psych/Mental Status: Mental status NL, Mood NL Medications Current Medications Medications Dose Ordered Sig/Edis Route Start Time Stop Time Status Last Admin Dose Admin Vancomycin HCl 0 ml @ 0 mls/hr UD IV 11/11/24 23:30 Acetaminophen 650 mg Q6HPRN PRN PO 11/11/24 23:45 Piperacillin Sod/ Tazobactam Sod 100 ml @ 25 mls/hr Q8HR IV 11/12/24 06:00 UNV Piperacillin Sod/ Tazobactam Sod 100 ml @ 25 mls/hr Q8HR IV 11/12/24 01:30 11/13/24 06:06 25 MLS/HR Ondansetron HCl 4 mg Q4HPRN PRN IV 11/12/24 07:45 11/12/24 16:33 4 MG Vancomycin HCl 250 ml @ 200 mls/hr Q8H IV 11/12/24 20:00 11/13/24 04:17 200 MLS/HR Potassium Chloride/Dextrose/ Sod Cl 1,000 ml @ 100 mls/hr Q10H IV 11/12/24 14:15 11/13/24 09:17 100 MLS/HR Pantoprazole Sodium 40 mg DAILY IV 11/13/24 10:00 11/13/24 09:15 40 MG Morphine Sulfate 2 mg Q4HPRN PRN IV 11/12/24 16:45 11/13/24 04:56 2 MG Laboratory Results Laboratory Tests 11/13/24 05:03 Chemistry Test 11/13/24 05:03 Calcium Level 7.8 mg/dL (8.7-10.4) L Urinalysis Test 11/11/24 20:50 Urine Color Yellow (Yellow) Urine Clarity Clear (Clear) Urine pH 6.0 (5.0-9.0) Urine Specific [place] 1.021 (1.001-1.035) Urine Protein 1+ (Negative) H Urine Ketones Negative (Negative) Urine Blood 2+ /uL (Negative) H Urine Nitrite Negative (Negative) Urine Bilirubin Negative (Negative) Urine Urobilinogen 3 mg/dL (Negative) H Urine Leukocyte Esterase Negative /uL (Negative) Urine RBC 1 /hpf (0 - 3) Urine Microscopic WBC 6 /HPF (0-3) H Urine Squamous Epithelial Cells None seen /hpf (<5) Urine Bacteria None seen /hpf (None Seen) Urine Mucus Few (None Seen) Urine Glucose 1+ mg/dL (Normal) H Microbiology Microbiology Date/Time Source Procedure Growth Status 11/11/24 20:15 Blood Blood Culture - Preliminary NO GROWTH AFTER 24 HOURS OF INCUBATION. Resulted Labs and/or images reviewed: Labs reviewed by me, Image(s) reviewed by me Assessment/Plan Assessment/Plan Impression: -severe sepsis secondary to perforated diverticulitis -obesity -hypokalemia -hyponatremia Plan: Events: Patient states that his abdominal pain has improved. Denies any more testicular pain. -repeat UA -continue current antibiotic therapy -PPI -potassium replacement -change IV fluids to D5 NS with 40 mEq of potassium chloride -pain management -repeat labs in a.m. -CT scan with IV contrast tomorrow Total time spent with patient discussing and formulating plan of care: 35 minutes. This medical document was created using an electronic medical record system with [employer] dictation system. Although this document has been carefully reviewed, there may still be some phonetic and typographical errors. These areas are purely typographical due to imperfections of the software programs, and do not reflect any compromise in the patient's medical care. Plan discussed with: Patient, Other (RN) My Orders Orders - SANDRA GOODMAN NP Procedure Category Date Status Time D5w/ Sod Chl 0.9%/Kcl PHA 11/12/24 In Process 20meq 14:15 Pantoprazole PHA 11/13/24 In Process (Protonix) 10:00 Drug Screen LAB 11/12/24 Logged 14:45 Urine Bacterial GEORGETTE 11/13/24 Logged Culture 09:26 Potassium Chloride PHA 11/13/24 In Process (Potassium Chloride). 09:30 Date of Service: Nov 13, 2024 Billing Provider: SANDRA GOODMAN NP Common Visit Codes: [id number] INP/OBS CARE(HIGH) SANDRA GOODMAN NP Nov 13, 2024 10:21
[2024-11-13] MEDS: POTASSIUM CHLORIDE 20 MEQ, LIDOCAINE 1% (LOCAL ANESTH.) 2 ML in SODIUM CHL 0.9% 100 ML IV ONE (11:35)
[2024-11-13 12:49] LABS: Opiate Scree,Urine Neg (NEGATIVE)
[2024-11-13 12:57] LABS: Amphetamine Screen, Urine Neg (NEGATIVE); Barbiturate Scree,Urine Neg (NEGATIVE); Benzodiazephine Screen, Urine Neg (NEGATIVE); Cannabinoid Screen, Urine Neg (NEGATIVE); Cocaine Screen, Urine Neg (NEGATIVE); Phencyclidine Screen, Urine Neg (NEGATIVE)
--- NOTE | 2024-11-13 13:26 | DVHINCON2 ---
GI Consult Consult Note GI consult note Date of Consultation: 11/13/2024 Chief Complaint: Diverticulitis with microperforation Referring Physician: Dr. Zacarias H&P: 44-year-old male presented to ER with complains of blurred vision and testicular pain. Patient states that he was diagnosed with COVID-19 five days ago and has had intermittent fever and chills with nausea vomiting and diarrhea. Patient admits to having abdominal discomfort, which is generalized. No nausea vomiting at this time. Patient has loose stool. No melena or red blood in stool. No colonoscopy in past. Patient admits to feeling better after taking pain medication Past Medical History: Denies Past Surgical History: None Social History: NO smoking, drinking ETOH and use of illegal drugs. Family History: Noncontributory Review of Systems: Constitutional: no fever, chill, weight loss HEENT: no eye pain, no hearing loss, no oral lesion, no scleral icterus Heart: no chest pain, no chest pressure Lung: no cough, no dyspnea with exertion Abdomen: see HPI Physical exam: General: NAD, AAOX3 Chest: lung [place] clear to auscultation Heart: RRR, no murmur Abdomen: non-distended, no tenderness to palpation, +BS Labs: Chemistry Test 11/13/24 05:03 Calcium Level 7.8 mg/dL (8.7-10.4) L Urinalysis Test 11/11/24 20:50 Urine Color Yellow (Yellow) Urine Clarity Clear (Clear) Urine pH 6.0 (5.0-9.0) Urine Specific [place] 1.021 (1.001-1.035) Urine Protein 1+ (Negative) H Urine Ketones Negative (Negative) Urine Blood 2+ /uL (Negative) H Urine Nitrite Negative (Negative) Urine Bilirubin Negative (Negative) Urine Urobilinogen 3 mg/dL (Negative) H Urine Leukocyte Esterase Negative /uL (Negative) Urine RBC 1 /hpf (0 - 3) Urine Microscopic WBC 6 /HPF (0-3) H Urine Squamous Epithelial Cells None seen /hpf (<5) Urine Bacteria None seen /hpf (None Seen) Urine Mucus Few (None Seen) Urine Glucose 1+ mg/dL (Normal) H Microbiology Microbiology Date/Time Source Procedure Growth Status 11/11/24 20:15 Blood Blood Culture - Preliminary NO GROWTH AFTER 24 HOURS OF INCUBATION. Resulted Imaging: CT abdomen pelvis IMPRESSION: 1. Sigmoid diverticulitis with evidence of perforation. Assessment: Diverticulitis with perforation Sepsis Plan: Discussed with Dr. Sharma Continue antibiotic treatment Repeat CT scan with IV contrast Monitor labs We will continue to follow patient Thank you for this consult Date of Service: Nov 13, 2024 Billing Provider: KRISTY MTZ Common Visit Codes: CONSULT ONLY Consultation Codes: [id number] CONSULT <60MIN KRISTY MTZ Nov 13, 2024 13:26
[2024-11-13] MEDS: VANCOMYCIN 1.25GM/250ML 250 ML IV SCH ×2 (13:37→20:03)
[2024-11-13] MEDS ORDERED: VANCOMYCIN 1.5GM/300ML 300 ML IV SCH (15:00)
[2024-11-13] MEDS: PIPERACILLIN-TAZOB 3.375GM 100 ML IV SCH (16:50)
[2024-11-14] VITALS (8 sets, daily range): BP systolic 128–158; BP diastolic 72–89; PULSE 91–111; RESP 17–19; TEMP 97.7–99.2; O2SAT 94–98
[2024-11-14 08:03] LABS: Hematocrit 37.1 % (41.0-53.0); Hemoglobin 12.6 g/dL (13.5-17.5); Mean Corpuscular Hemoglobin 28.2 pg (28.0-32.0); Mean Corpuscular Volume 82.6 fL (80.0-100.0); Nucleated Red Blood Cells % 0.0 %
[2024-11-14 08:06] LABS: Albumin 3.2 g/dL (3.2-4.8); Alkaline Phosphatase 108 U/L (46-116); Anion Gap 8 (5-15); BUN/Creatinine Ratio 21.2 (10.0-20.0); Bilirubin, Total 0.6 mg/dL (0.2-1.0); Blood Urea Nitrogen 14 mg/dL (9-23); Carbon Dioxide 24 mmol/L (20-31); Chloride 106 mmol/L (98-107); Sodium 138 mmol/L (136-145)
[2024-11-14 08:07] LABS: Alanine Aminotransferase 57 U/L (7-40); Calcium 8.5 mg/dL (8.7-10.4); Glucose 120 mg/dL (74-106); Potassium 3.3 mmol/L (3.5-5.1); Total Protein 5.7 g/dL (5.7-8.2)
[2024-11-14] MEDS: IOHEXOL 300 MG/ML 100ML BOTTLE IJ ONE (10:58)
--- NOTE | 2024-11-14 13:33 | DVHPN2 ---
Subjective Denies any symptoms Reviewed: Care Plan, H&P, Labs, Medications Changes from previous H/P or p: No Changes General: Per HPI Eyes: No Pain, No Vision change, No Conjunctivae inflammation, No Eyelid inflammation, No Other, No Redness ENT: No Ear pain, No Ear discharge, No Nose pain, No Nose discharge, No Nose congestion, No Mouth pain, No Mouth swelling, No Throat pain, No Throat swelling, No Other Cardiovascular: No Chest Pain, No Palpitations, No Orthopnea, No Paroxysmal Noc. Dyspnea, No Edema; Lt Headedness; No Other Respiratory: No Cough, No Dry, No Shortness of breath, No SOB with excertion, No Wheezing, No Hemoptysis, No Pleuritic Pain, No Sputum, No Other Gastrointestinal: Nausea, Vomiting; No Abdominal Pain; Diarrhea; No Constipation, No Melena, No Hematochezia, No Other Genitourinary: No Dysuria, No Frequency, No Incontinence, No Hematuria, No Retention, No Other Musculoskeletal: No other, No neck pain, No shoulder pain, No arm pain, No back pain, No hand pain, No leg pain, No foot pain Skin: No Rash, No Lesions, No Jaundice, No Bruising, No Other Objective Vitals Vital Signs Date Time Temp Pulse Resp B/P (MAP) Pulse Ox O2 Delivery O2 Flow Rate FiO2 11/14/24 09:00 99.2 95 18 128/86 (100) 94 99.2 11/14/24 08:00 Room Air* 0 21 Intake/Output Intake and Output 11/14/24 07:00 Intake Total 362 ml Output Total 5 ml Balance 357 ml Intake Oral 0 ml IV Total 362 ml Stool Total 5 ml # Voids 27 # Bowel Movements 8 General Appearance: Alert, Oriented X3, Cooperative HEENT: Atraumatic, PERRLA Lungs: Clear to auscultation, Normal air movement Cardiovascular: Normal S1, Normal S2, Other (Sinus tachycardia) Abdomen: Normal bowel sounds, Soft, No tenderness, No hepatospenomegaly Musculoskeletal: Normal sensory function, Normal motor function Neuro: Cranial nerves 3-12 NL Skin: Dry, Intact Psych/Mental Status: Mental status NL, Mood NL Medications Current Medications Medications Dose Ordered Sig/Edis Route Start Time Stop Time Status Last Admin Dose Admin Vancomycin HCl 0 ml @ 0 mls/hr UD IV 11/11/24 23:30 Acetaminophen 650 mg Q6HPRN PRN PO 11/11/24 23:45 Piperacillin Sod/ Tazobactam Sod 100 ml @ 25 mls/hr Q8HR IV 11/12/24 06:00 UNV Ondansetron HCl 4 mg Q4HPRN PRN IV 11/12/24 07:45 11/12/24 16:33 4 MG Potassium Chloride/Dextrose/ Sod Cl 1,000 ml @ 100 mls/hr Q10H IV 11/12/24 14:15 11/13/24 09:17 100 MLS/HR Pantoprazole Sodium 40 mg DAILY IV 11/13/24 10:00 11/14/24 08:11 40 MG Morphine Sulfate 2 mg Q4HPRN PRN IV 11/12/24 16:45 11/14/24 03:31 2 MG Piperacillin Sod/ Tazobactam Sod 100 ml @ 25 mls/hr Q8H IV 11/13/24 16:00 11/14/24 09:24 25 MLS/HR Vancomycin HCl 300 ml @ 200 mls/hr Q12H IV 11/13/24 15:00 UNV Vancomycin HCl 250 ml @ 200 mls/hr Q6H IV 11/13/24 20:00 11/14/24 08:11 200 MLS/HR Laboratory Results Laboratory Tests 11/14/24 07:04 Chemistry Test 11/14/24 07:04 Albumin 3.2 g/dL (3.2-4.8) Calcium Level 8.5 mg/dL (8.7-10.4) L Total Protein 5.7 g/dL (5.7-8.2) LFT Test 11/14/24 07:04 Alanine Aminotransferase (ALT) 57 U/L (7-40) H Alkaline Phosphatase 108 U/L (46-116) Aspartate Amino Transferase (AST) 55 U/L (13-40) H Total Bilirubin 0.6 mg/dL (0.2-1.0) Urinalysis Test 11/11/24 20:50 Urine Color Yellow (Yellow) Urine Clarity Clear (Clear) Urine pH 6.0 (5.0-9.0) Urine Specific [place] 1.021 (1.001-1.035) Urine Protein 1+ (Negative) H Urine Ketones Negative (Negative) Urine Blood 2+ /uL (Negative) H Urine Nitrite Negative (Negative) Urine Bilirubin Negative (Negative) Urine Urobilinogen 3 mg/dL (Negative) H Urine Leukocyte Esterase Negative /uL (Negative) Urine RBC 1 /hpf (0 - 3) Urine Microscopic WBC 6 /HPF (0-3) H Urine Squamous Epithelial Cells None seen /hpf (<5) Urine Bacteria None seen /hpf (None Seen) Urine Mucus Few (None Seen) Urine Glucose 1+ mg/dL (Normal) H Microbiology Microbiology Date/Time Source Procedure Growth Status 11/13/24 12:10 Voided Urine Urine Culture - Preliminary Resulted 11/12/24 00:25 Nose MRSA Screen - Final Complete 11/11/24 20:15 Blood Blood Culture - Preliminary NO GROWTH AFTER 48 HOURS OF INCUBATION. Resulted Labs and/or images reviewed: Labs reviewed by me, Image(s) reviewed by me Assessment/Plan Assessment/Plan Impression: -severe sepsis secondary to perforated diverticulitis -obesity -hypokalemia -hyponatremia Plan: Events: Patient denies any abdominal pain at this time. We will repeat CT scan with IV contrast given patient has increase in white blood cell count. Possible abscess formation. -repeat UA -continue current antibiotic therapy -PPI -potassium replacement -change IV fluids to D5 NS with 40 mEq of potassium chloride -pain management -repeat labs in a.m. Total time spent with patient discussing and formulating plan of care: 35 minutes. This medical document was created using an electronic medical record system with [employer] dictation system. Although this document has been carefully reviewed, there may still be some phonetic and typographical errors. These areas are purely typographical due to imperfections of the software programs, and do not reflect any compromise in the patient's medical care. Plan discussed with: Patient, Other (RN) My Orders Orders - SANDRA GOODMAN NP Procedure Category Date Status Time Ct Ab Pel With Iv Con CT 11/14/24 Taken Only 10:51 * Wound Consult CONS 11/14/24 Transmitted Date of Service: Nov 14, 2024 Billing Provider: SANDRA GOODMAN NP Common Visit Codes: [id number] INP/OBS CARE(HIGH) SANDRA GOODMAN NP Nov 14, 2024 13:33
--- NOTE | 2024-11-14 13:45 | DVHPN2 ---
Subjective No new complaints Reviewed: Care Plan, H&P, Labs, Medications Changes from previous H/P or p: No Changes General: Per HPI Eyes: No Pain, No Vision change, No Conjunctivae inflammation, No Eyelid inflammation, No Other, No Redness ENT: No Ear pain, No Ear discharge, No Nose pain, No Nose discharge, No Nose congestion, No Mouth pain, No Mouth swelling, No Throat pain, No Throat swelling, No Other Cardiovascular: No Chest Pain, No Palpitations, No Orthopnea, No Paroxysmal Noc. Dyspnea, No Edema; Lt Headedness; No Other Respiratory: No Cough, No Dry, No Shortness of breath, No SOB with excertion, No Wheezing, No Hemoptysis, No Pleuritic Pain, No Sputum, No Other Gastrointestinal: Nausea, Vomiting; No Abdominal Pain; Diarrhea; No Constipation, No Melena, No Hematochezia, No Other Genitourinary: No Dysuria, No Frequency, No Incontinence, No Hematuria, No Retention, No Other Musculoskeletal: No other, No neck pain, No shoulder pain, No arm pain, No back pain, No hand pain, No leg pain, No foot pain Skin: No Rash, No Lesions, No Jaundice, No Bruising, No Other Objective Vitals Vital Signs Date Time Temp Pulse Resp B/P (MAP) Pulse Ox O2 Delivery O2 Flow Rate FiO2 11/14/24 09:00 99.2 95 18 128/86 (100) 94 99.2 11/14/24 08:00 Room Air* 0 21 Intake/Output Intake and Output 11/14/24 07:00 Intake Total 362 ml Output Total 5 ml Balance 357 ml Intake Oral 0 ml IV Total 362 ml Stool Total 5 ml # Voids 27 # Bowel Movements 8 General Appearance: Alert, Oriented X3, Cooperative, No acute distress, mild distress, moderate distress, severe distress, Other HEENT: Atraumatic, PERRLA Lungs: Clear to auscultation, Normal air movement, Other Cardiovascular: Regular rate, Normal S1, Normal S2, No murmurs, Gallops, Rubs, Other (Sinus tachycardia) Abdomen: Normal bowel sounds, Soft, No tenderness, No hepatospenomegaly, No masses, Other Musculoskeletal: Normal sensory function, Normal motor function Neuro: Cranial nerves 3-12 NL Skin: Dry, Intact Psych/Mental Status: Mental status NL, Mood NL Medications Current Medications Medications Dose Ordered Sig/Edis Route Start Time Stop Time Status Last Admin Dose Admin Vancomycin HCl 0 ml @ 0 mls/hr UD IV 11/11/24 23:30 Acetaminophen 650 mg Q6HPRN PRN PO 11/11/24 23:45 Piperacillin Sod/ Tazobactam Sod 100 ml @ 25 mls/hr Q8HR IV 11/12/24 06:00 UNV Ondansetron HCl 4 mg Q4HPRN PRN IV 11/12/24 07:45 11/12/24 16:33 4 MG Potassium Chloride/Dextrose/ Sod Cl 1,000 ml @ 100 mls/hr Q10H IV 11/12/24 14:15 11/13/24 09:17 100 MLS/HR Pantoprazole Sodium 40 mg DAILY IV 11/13/24 10:00 11/14/24 08:11 40 MG Morphine Sulfate 2 mg Q4HPRN PRN IV 11/12/24 16:45 11/14/24 03:31 2 MG Piperacillin Sod/ Tazobactam Sod 100 ml @ 25 mls/hr Q8H IV 11/13/24 16:00 11/14/24 09:24 25 MLS/HR Vancomycin HCl 300 ml @ 200 mls/hr Q12H IV 11/13/24 15:00 UNV Vancomycin HCl 250 ml @ 200 mls/hr Q6H IV 11/13/24 20:00 11/14/24 08:11 200 MLS/HR Laboratory Results Laboratory Tests 11/14/24 07:04 Chemistry Test 11/14/24 07:04 Albumin 3.2 g/dL (3.2-4.8) Calcium Level 8.5 mg/dL (8.7-10.4) L Total Protein 5.7 g/dL (5.7-8.2) LFT Test 11/14/24 07:04 Alanine Aminotransferase (ALT) 57 U/L (7-40) H Alkaline Phosphatase 108 U/L (46-116) Aspartate Amino Transferase (AST) 55 U/L (13-40) H Total Bilirubin 0.6 mg/dL (0.2-1.0) Urinalysis Test 11/11/24 20:50 Urine Color Yellow (Yellow) Urine Clarity Clear (Clear) Urine pH 6.0 (5.0-9.0) Urine Specific [place] 1.021 (1.001-1.035) Urine Protein 1+ (Negative) H Urine Ketones Negative (Negative) Urine Blood 2+ /uL (Negative) H Urine Nitrite Negative (Negative) Urine Bilirubin Negative (Negative) Urine Urobilinogen 3 mg/dL (Negative) H Urine Leukocyte Esterase Negative /uL (Negative) Urine RBC 1 /hpf (0 - 3) Urine Microscopic WBC 6 /HPF (0-3) H Urine Squamous Epithelial Cells None seen /hpf (<5) Urine Bacteria None seen /hpf (None Seen) Urine Mucus Few (None Seen) Urine Glucose 1+ mg/dL (Normal) H Microbiology Microbiology Date/Time Source Procedure Growth Status 11/13/24 12:10 Voided Urine Urine Culture - Preliminary Resulted 11/12/24 00:25 Nose MRSA Screen - Final Complete 11/11/24 20:15 Blood Blood Culture - Preliminary NO GROWTH AFTER 48 HOURS OF INCUBATION. Resulted Labs and/or images reviewed: Labs reviewed by me, Image(s) reviewed by me Assessment/Plan Assessment/Plan Diverticulitis with perforation Sepsis Plan Discussed with Dr. Sharma Ct abdomen pelvis with IV contrast completed results pending Continue antibiotic treatment Strict NPO Recommend Clinimix Surgical follow-up recommended We will continue to monitor patient Plan discussed with: Patient Date of Service: Nov 14, 2024 Billing Provider: KRISTY MTZ Common Visit Codes: [id number] INP/OBS CARE(HIGH) KRISTY MTZ Nov 14, 2024 13:45
--- NOTE | 2024-11-14 14:02 | DVH ---
CT CT AB PEL WITH IV CON ONLY INDICATION: perforated Diverticulitis. Rule out abscess EXAM DATE: 11/14/2024 12:56 PM COMPARISON: None RADIATION DOSE: CTDIvol: 25.54 mGy, DLP: 1724.26 mGy*cm PROCEDURE: Helical CT images were obtained of the abdomen and pelvis with IV contrast Sagittal and co aryo reconstructions are provided. ORAL CONTRAST: None. ADDITIONAL IMAGES / REFORMATS: None All CT s cans at this medical facility are performed using dose modulation techniques as appropriate to a perf ormed exam including the following: Automated exposure control was utilized; adjustment of the MA and /or KV according to patient size; and use of iterative reconstruction technique. FINDINGS: LUNG BASE: Normal. LIVER: Normal. GALLBLADDER AND BILIARY TREE: No calcified gallstones. Normal caliber wall. No intra- or extrahepatic biliary ductal dilation. PANCREAS: Normal. SPLEEN: Normal. BOWEL: Moderate colonic diverticulosis with sigmoid diverticulitis and evolving perforated diverticul itis with prominent area of phlegmon and interval new 4.9 x 4.2 cm air/fluid collection likely an abs cess. ADRENALS: Normal. KIDNEYS AND URETER: Normal. BLADDER: Normal. REPRODUCTIVE ORGANS: Normal. LYMPH NODES:No lymphadenopathy. PERITONEUM: No ascites or free air. No other fluid collection. VESSELS: Scattered atherosclerotic calcifications are noted. RETROPERITONEUM: Normal. ABDOMINAL WALL: Normal. BONES: Scattered osseous degenerative changes are noted. IMPRESSION: Moderate colonic diverticulosis with sigmoid diverticulitis and evolving contained perforated diverti culitis with prominent area of phlegmon and interval new 4.9 x 4.2 cm air/fluid collection likely an abscess.
[2024-11-14] MEDS: POTASSIUM CHLORIDE 20 MEQ, LIDOCAINE 1% (LOCAL ANESTH.) 2 ML in SODIUM CHL 0.9% 100 ML IV ONE (15:49)
[2024-11-15] VITALS (7 sets, daily range): BP systolic 136–145; BP diastolic 90–96; PULSE 89–138; RESP 16–19; TEMP 96.2–99.7; O2SAT 94–96
[2024-11-15 08:42] LABS: Hematocrit 38.9 % (41.0-53.0); Hemoglobin 13.2 g/dL (13.5-17.5); Mean Corpuscular Hemoglobin 28.1 pg (28.0-32.0); Mean Corpuscular Volume 82.6 fL (80.0-100.0); Nucleated Red Blood Cells % 0.0 %
[2024-11-15 08:46] LABS: Alkaline Phosphatase 111 U/L (46-116); Anion Gap 9 (5-15); BUN/Creatinine Ratio 20.3 (10.0-20.0); Blood Urea Nitrogen 12 mg/dL (9-23); Carbon Dioxide 23 mmol/L (20-31); Chloride 106 mmol/L (98-107); Sodium 138 mmol/L (136-145)
[2024-11-15 08:47] LABS: Bilirubin, Total 0.5 mg/dL (0.2-1.0)
[2024-11-15 08:53] LABS: Alanine Aminotransferase 58 U/L (7-40); Albumin 3.1 g/dL (3.2-4.8); Calcium 8.2 mg/dL (8.7-10.4); Glucose 108 mg/dL (74-106); Potassium 3.3 mmol/L (3.5-5.1); Total Protein 5.7 g/dL (5.7-8.2)
[2024-11-15] MEDS ORDERED: CLINIMIX PER PHARMACY 0 ML IV SCH (10:15)
[2024-11-15] MEDS ORDERED: DEXTROSE (50%) 50ML SYRG IV SCH (12:00)
[2024-11-15] MEDS: ACCU-CHEK COMFORT CURVE STRIP VI SCH ×2 (12:00→18:00)
[2024-11-15] MEDS: InsuLIN REG 1unit/0.01ml Soln (100units/ml) SC SCH ×2 (12:00→18:00)
[2024-11-15] MEDS: LIDOCAINE 1% (LOCAL ANESTH.) PF 5ml SDV ID ONE (12:29)
--- NOTE | 2024-11-15 12:43 | DVHPN2 ---
Subjective No new complaints Reviewed: Care Plan, H&P, Labs, Medications Changes from previous H/P or p: No Changes General: Per HPI Eyes: No Pain, No Vision change, No Conjunctivae inflammation, No Eyelid inflammation, No Other, No Redness ENT: No Ear pain, No Ear discharge, No Nose pain, No Nose discharge, No Nose congestion, No Mouth pain, No Mouth swelling, No Throat pain, No Throat swelling, No Other Cardiovascular: No Chest Pain, No Palpitations, No Orthopnea, No Paroxysmal Noc. Dyspnea, No Edema; Lt Headedness; No Other Respiratory: No Cough, No Dry, No Shortness of breath, No SOB with excertion, No Wheezing, No Hemoptysis, No Pleuritic Pain, No Sputum, No Other Gastrointestinal: Nausea, Vomiting; No Abdominal Pain; Diarrhea; No Constipation, No Melena, No Hematochezia, No Other Genitourinary: No Dysuria, No Frequency, No Incontinence, No Hematuria, No Retention, No Other Musculoskeletal: No other, No neck pain, No shoulder pain, No arm pain, No back pain, No hand pain, No leg pain, No foot pain Skin: No Rash, No Lesions, No Jaundice, No Bruising, No Other Objective Vitals Vital Signs Date Time Temp Pulse Resp B/P (MAP) Pulse Ox O2 Delivery O2 Flow Rate FiO2 11/15/24 09:00 98.6 90 18 145/94 (111) 94 98.6 11/14/24 20:00 Room Air* 0 21 Intake/Output Intake and Output 11/15/24 07:00 Intake Total 712 ml Output Total 8 ml Balance 704 ml Intake Oral 0 ml IV Total 712 ml Stool Total 8 ml # Voids 16 General Appearance: Alert, Oriented X3, Cooperative, No acute distress, mild distress, moderate distress, severe distress, Other HEENT: Atraumatic, PERRLA Lungs: Clear to auscultation Cardiovascular: Regular rate Abdomen: Normal bowel sounds Musculoskeletal: Normal sensory function, Normal motor function Neuro: Cranial nerves 3-12 NL Skin: Dry, Intact Psych/Mental Status: Mental status NL, Mood NL Medications Current Medications Medications Dose Ordered Sig/Edis Route Start Time Stop Time Status Last Admin Dose Admin Vancomycin HCl 0 ml @ 0 mls/hr UD IV 11/11/24 23:30 Acetaminophen 650 mg Q6HPRN PRN PO 11/11/24 23:45 Piperacillin Sod/ Tazobactam Sod 100 ml @ 25 mls/hr Q8HR IV 11/12/24 06:00 UNV Ondansetron HCl 4 mg Q4HPRN PRN IV 11/12/24 07:45 11/12/24 16:33 4 MG Potassium Chloride/Dextrose/ Sod Cl 1,000 ml @ 100 mls/hr Q10H IV 11/12/24 14:15 11/13/24 09:17 100 MLS/HR Pantoprazole Sodium 40 mg DAILY IV 11/13/24 10:00 11/14/24 08:11 40 MG Morphine Sulfate 2 mg Q4HPRN PRN IV 11/12/24 16:45 11/14/24 23:51 2 MG Piperacillin Sod/ Tazobactam Sod 100 ml @ 25 mls/hr Q8H IV 11/13/24 16:00 11/15/24 03:56 25 MLS/HR Vancomycin HCl 300 ml @ 200 mls/hr Q12H IV 11/13/24 15:00 UNV Vancomycin HCl 250 ml @ 200 mls/hr Q6H IV 11/13/24 20:00 11/15/24 02:31 200 MLS/HR Amino Acids 0 ml @ 0 mls/hr PER PHARMACY IV 11/15/24 10:15 Amino Acids/ Electrolytes/ Dextrose 1,000 ml @ 41 mls/hr DAILY@2200 IV 11/15/24 22:00 Diagnostic Test (Pha) 1 strip Q6HR 11/15/24 12:00 Insulin Human Regular FOLLOW SLIDING SCALE Q6HR SC 11/15/24 12:00 Dextrose 50 ml UD IV 11/15/24 12:00 Potassium Chloride 100 ml @ 50 mls/hr Q2H IV 11/15/24 11:30 11/15/24 15:29 Sodium Chloride 10 ml QSHIFT@10,22 IV 11/15/24 22:00 Laboratory Results Laboratory Tests 11/15/24 04:54 Chemistry Test 11/15/24 04:54 Albumin 3.1 g/dL (3.2-4.8) L Calcium Level 8.2 mg/dL (8.7-10.4) L Total Protein 5.7 g/dL (5.7-8.2) LFT Test 11/15/24 04:54 Alanine Aminotransferase (ALT) 58 U/L (7-40) H Alkaline Phosphatase 111 U/L (46-116) Aspartate Amino Transferase (AST) 46 U/L (13-40) H Total Bilirubin 0.5 mg/dL (0.2-1.0) Urinalysis Test 11/11/24 20:50 Urine Color Yellow (Yellow) Urine Clarity Clear (Clear) Urine pH 6.0 (5.0-9.0) Urine Specific [place] 1.021 (1.001-1.035) Urine Protein 1+ (Negative) H Urine Ketones Negative (Negative) Urine Blood 2+ /uL (Negative) H Urine Nitrite Negative (Negative) Urine Bilirubin Negative (Negative) Urine Urobilinogen 3 mg/dL (Negative) H Urine Leukocyte Esterase Negative /uL (Negative) Urine RBC 1 /hpf (0 - 3) Urine Microscopic WBC 6 /HPF (0-3) H Urine Squamous Epithelial Cells None seen /hpf (<5) Urine Bacteria None seen /hpf (None Seen) Urine Mucus Few (None Seen) Urine Glucose 1+ mg/dL (Normal) H Microbiology Microbiology Date/Time Source Procedure Growth Status 11/13/24 12:10 Voided Urine Urine Culture - Final Complete 11/12/24 00:25 Nose MRSA Screen - Final Complete 11/11/24 20:15 Blood Blood Culture - Preliminary NO GROWTH AFTER 72 HOURS OF INCUBATION. Resulted Labs and/or images reviewed: Labs reviewed by me, Image(s) reviewed by me Assessment/Plan Assessment/Plan Diverticulitis with perforation Sepsis Plan Discussed with Dr. Sharma Continue antibiotic treatment Strict NPO Recommend Clinimix Surgical follow-up recommended. Recommend IR consult for possible drainage of abscess if required We will continue to monitor patient Plan discussed with: Patient My Orders Orders - KRISTY MTZ Procedure Category Date Status Time Clinimix Per Pharmacy PETE 11/14/24 In Process 13:45 Clinimix Per Pharmacy PHA 11/15/24 In Process 10:15 Amino Acid Infusion PHA 11/15/24 In Process In D10w (Clinimix 4. 22:00 Glucose Blood PHA 11/15/24 In Process (Accu-Chek Comfort 12:00 Insulin R (Human) PHA 11/15/24 In Process (Insulin R) 12:00 Dextrose 50% Syringe PHA 11/15/24 In Process 12:00 Comprehensive LAB 11/16/24 Verified Metabolic Panel 04:00 Magnesium LAB 11/16/24 Verified 04:00 Phosphorus LAB 11/16/24 Verified 04:00 Clinimix Per Pharmacy PETE 11/15/24 In Process 22:00 Potassium Chl PHA 11/15/24 In Process 20meq/100ml 11:30 Date of Service: Nov 15, 2024 Billing Provider: KRISTY MTZ Common Visit Codes: [id number] INP/OBS CARE(HIGH) KRISTY MTZ Nov 15, 2024 12:43
--- NOTE | 2024-11-15 13:36 | DVH ---
PROCEDURE: Drainage catheter placement Procedural Personnel Attending physician(s): Venkat Pichardo Fellow physician(s): None Resident physician(s): None Advanced practice provider(s): None Pre-procedure diagnosis: Diverticulitis with diverticular abscess Post-procedure diagnosis: Same Indication: Suspected abscess Additional clinical history: None Complications: No immediate complications. IMPRESSION: Percutaneous placement of a 10 amharic drainage catheter into perisigmoid abscess, yielding 62 mL of p urulent fluid. Plan: Flush drain with 10 cc normal saline daily to maintain patency. Monitor output for evaluation of absc ess resolution PROCEDURE SUMMARY: - Intraperitoneal drainage catheter placement under CT guidance - Additional procedure(s): None PROCEDURE DETAILS: Pre-procedure Consent: Informed consent for the procedure including risks, benefits and alternatives was obtained a nd time-out was performed prior to the procedure. Preparation: The site was prepared and draped using maximal sterile barrier technique including cutan eous antisepsis. Anesthesia/sedation Level of anesthesia/sedation: Moderate sedation (conscious sedation) Anesthesia/sedation administered by: Independent trained observer under attending supervision with co ntinuous monitoring of the patient s level of consciousness and physiologic status Total intra-service sedation time (minutes): 60 Drainage catheter placement The patient was positioned supine. Initial imaging was performed. Local anesthesia was administered. The fluid collection was accessed using an access needle followed by wire insertion and serial dilati on and a drainage catheter was placed. Position of the drainage catheter within the fluid collection was confirmed. Initial imaging findings: Perisigmoid fluid and air containing collection with regional fat stranding Access route: Percutaneous Drainage catheter placed: Flexima Drain size (Fr): 10 External catheter securement: Non-absorbable suture Drainage catheter contrast injection: No Final imaging findings: Near-complete drainage of the fluid collection Contrast Contrast agent: None Contrast volume (mL): [address] dose length product (mGy-cm): 919.74 Additional Details Additional description of procedure: None Registry event: V/3/f Device used: None Equipment details: None Specimens removed: 62 mL of purulent fluid. Aspirated fluid was sent for analysis. Estimated blood loss (mL): Less than 10 Standardized report: [email or web address] Attestation Signer name: Venkat Pichardo I attest that I was present for the entire procedure. I reviewed the stored images and agree with the report as written.
--- NOTE | 2024-11-15 13:54 | DVHPN2 ---
Subjective Denies any symptoms Reviewed: Care Plan, H&P, Labs, Medications Changes from previous H/P or p: No Changes General: Per HPI Eyes: No Pain, No Vision change, No Conjunctivae inflammation, No Eyelid inflammation, No Other, No Redness ENT: No Ear pain, No Ear discharge, No Nose pain, No Nose discharge, No Nose congestion, No Mouth pain, No Mouth swelling, No Throat pain, No Throat swelling, No Other Cardiovascular: No Chest Pain, No Palpitations, No Orthopnea, No Paroxysmal Noc. Dyspnea, No Edema; Lt Headedness; No Other Respiratory: No Cough, No Dry, No Shortness of breath, No SOB with excertion, No Wheezing, No Hemoptysis, No Pleuritic Pain, No Sputum, No Other Gastrointestinal: Nausea, Vomiting; No Abdominal Pain; Diarrhea; No Constipation, No Melena, No Hematochezia, No Other Genitourinary: No Dysuria, No Frequency, No Incontinence, No Hematuria, No Retention, No Other Musculoskeletal: No other, No neck pain, No shoulder pain, No arm pain, No back pain, No hand pain, No leg pain, No foot pain Skin: No Rash, No Lesions, No Jaundice, No Bruising, No Other Objective Vitals Vital Signs Date Time Temp Pulse Resp B/P (MAP) Pulse Ox O2 Delivery O2 Flow Rate FiO2 11/15/24 09:00 98.6 90 18 145/94 (111) 94 98.6 11/14/24 20:00 Room Air* 0 21 Intake/Output Intake and Output 11/15/24 07:00 Intake Total 712 ml Output Total 8 ml Balance 704 ml Intake Oral 0 ml IV Total 712 ml Stool Total 8 ml # Voids 16 General Appearance: Alert, Oriented X3, Cooperative, No acute distress, mild distress, moderate distress, severe distress, Other HEENT: Atraumatic, PERRLA Lungs: Clear to auscultation Cardiovascular: Regular rate Abdomen: Normal bowel sounds Musculoskeletal: Normal sensory function, Normal motor function Neuro: Cranial nerves 3-12 NL Skin: Dry, Intact Psych/Mental Status: Mental status NL, Mood NL Medications Current Medications Medications Dose Ordered Sig/Edis Route Start Time Stop Time Status Last Admin Dose Admin Vancomycin HCl 0 ml @ 0 mls/hr UD IV 11/11/24 23:30 Acetaminophen 650 mg Q6HPRN PRN PO 11/11/24 23:45 Piperacillin Sod/ Tazobactam Sod 100 ml @ 25 mls/hr Q8HR IV 11/12/24 06:00 UNV Ondansetron HCl 4 mg Q4HPRN PRN IV 11/12/24 07:45 11/12/24 16:33 4 MG Potassium Chloride/Dextrose/ Sod Cl 1,000 ml @ 100 mls/hr Q10H IV 11/12/24 14:15 11/13/24 09:17 100 MLS/HR Pantoprazole Sodium 40 mg DAILY IV 11/13/24 10:00 11/14/24 08:11 40 MG Morphine Sulfate 2 mg Q4HPRN PRN IV 11/12/24 16:45 11/14/24 23:51 2 MG Piperacillin Sod/ Tazobactam Sod 100 ml @ 25 mls/hr Q8H IV 11/13/24 16:00 11/15/24 03:56 25 MLS/HR Vancomycin HCl 300 ml @ 200 mls/hr Q12H IV 11/13/24 15:00 UNV Vancomycin HCl 250 ml @ 200 mls/hr Q6H IV 11/13/24 20:00 11/15/24 02:31 200 MLS/HR Amino Acids 0 ml @ 0 mls/hr PER PHARMACY IV 11/15/24 10:15 Amino Acids/ Electrolytes/ Dextrose 1,000 ml @ 41 mls/hr DAILY@2200 IV 11/15/24 22:00 Diagnostic Test (Pha) 1 strip Q6HR 11/15/24 12:00 Insulin Human Regular FOLLOW SLIDING SCALE Q6HR SC 11/15/24 12:00 Dextrose 50 ml UD IV 11/15/24 12:00 Potassium Chloride 100 ml @ 50 mls/hr Q2H IV 11/15/24 11:30 11/15/24 15:29 Sodium Chloride 10 ml QSHIFT@10,22 IV 11/15/24 22:00 Laboratory Results Laboratory Tests 11/15/24 04:54 Chemistry Test 11/15/24 04:54 Albumin 3.1 g/dL (3.2-4.8) L Calcium Level 8.2 mg/dL (8.7-10.4) L Total Protein 5.7 g/dL (5.7-8.2) LFT Test 11/15/24 04:54 Alanine Aminotransferase (ALT) 58 U/L (7-40) H Alkaline Phosphatase 111 U/L (46-116) Aspartate Amino Transferase (AST) 46 U/L (13-40) H Total Bilirubin 0.5 mg/dL (0.2-1.0) Urinalysis Test 11/11/24 20:50 Urine Color Yellow (Yellow) Urine Clarity Clear (Clear) Urine pH 6.0 (5.0-9.0) Urine Specific [place] 1.021 (1.001-1.035) Urine Protein 1+ (Negative) H Urine Ketones Negative (Negative) Urine Blood 2+ /uL (Negative) H Urine Nitrite Negative (Negative) Urine Bilirubin Negative (Negative) Urine Urobilinogen 3 mg/dL (Negative) H Urine Leukocyte Esterase Negative /uL (Negative) Urine RBC 1 /hpf (0 - 3) Urine Microscopic WBC 6 /HPF (0-3) H Urine Squamous Epithelial Cells None seen /hpf (<5) Urine Bacteria None seen /hpf (None Seen) Urine Mucus Few (None Seen) Urine Glucose 1+ mg/dL (Normal) H Microbiology Microbiology Date/Time Source Procedure Growth Status 11/13/24 12:10 Voided Urine Urine Culture - Final Complete 11/12/24 00:25 Nose MRSA Screen - Final Complete 11/11/24 20:15 Blood Blood Culture - Preliminary NO GROWTH AFTER 72 HOURS OF INCUBATION. Resulted Labs and/or images reviewed: Labs reviewed by me, Image(s) reviewed by me Assessment/Plan Assessment/Plan Impression: -severe sepsis secondary to perforated diverticulitis -obesity -hypokalemia -hyponatremia Plan: Events: Repeat CT scan with IV contrast reveals diverticular abscess. This was discussed with the patient. White blood cell count also increasing. Plans for interventional radiology consultation for drain placement. PICC line placement. Start TPN. -continue current antibiotic therapy -PPI -potassium replacement -change IV fluids to D5 NS with 40 mEq of potassium chloride -pain management -repeat labs in a.m. Total time spent with patient discussing and formulating plan of care: 35 minutes. This medical document was created using an electronic medical record system with [employer] system. Although this document has been carefully reviewed, there may still be some phonetic and typographical errors. These areas are purely typographical due to imperfections of the software programs, and do not reflect any compromise in the patient's medical care. Plan discussed with: Patient, Other (RN) My Orders Orders - SANDRA GOODMAN NP Procedure Category Date Status Time * Picc Line Consult CONS 11/15/24 Transmitted 10:44 * Radiologist Consult CONS 11/15/24 Transmitted 10:53 Nursing Protocol Picc PETE 11/15/24 In Process 12:17 Change Dressing Prn PETE 11/15/24 In Process 12:17 PICC BD 11/15/24 Transmitted 12:17 Sodium Chloride Lock PHA 11/15/24 In Process (Saline Lock Ns) 22:00 Do Not Use Picc For PETE 11/15/24 In Process Blood Cult 12:17 May Draw Blood From PETE 11/15/24 In Process Picc 12:17 Ok To Use Picc PETE 11/15/24 In Process 12:17 Change Picc Dressing PETE 11/15/24 In Process Q7 Days 12:17 Us Guided Vascular US 11/15/24 Logged Access 12:17 Tpn Per Pharmacy PHA 11/15/24 Verified 14:00 Date of Service: Nov 15, 2024 Billing Provider: SANDRA GOODMAN PROGRAM SUPPORT CLERK Common Visit Codes: [id number] INP/OBS CARE(HIGH) SANDRA GOODMAN NP Nov 15, 2024 13:54
[2024-11-15] MEDS: POTASSIUM CHL 20MEQ/100ML 100 ML IV SCH (13:58)
[2024-11-15] MEDS ORDERED: TPN PER PHARMACY 0 ML IV SCH (14:00)
--- NOTE | 2024-11-15 16:55 | DVHPN2 ---
Progress Note Date Seen: Nov 15, 2024 Medical Necessity Reason Pt with a Central, PICC or Fol: No Objective vital signs Vital Sign Date Time Temp Pulse Resp B/P (MAP) Pulse Ox O2 Delivery O2 Flow Rate FiO2 11/15/24 13:46 95 18 143/87 11/15/24 09:00 98.6 94 98.6 11/14/24 20:00 Room Air* 0 21 Total Intake and Output 11/14/24 11/14/24 11/15/24 15:00 23:00 07:00 Intake Total 350 ml 362 ml 0 ml Output Total 4 ml 4 ml Balance 350 ml 358 ml -4 ml medications Current Medications Medications Dose Ordered Sig/Edis Route Start Time Stop Time Status Last Admin Dose Admin Vancomycin HCl 0 ml @ 0 mls/hr UD IV 11/11/24 23:30 Acetaminophen 650 mg Q6HPRN PRN PO 11/11/24 23:45 Piperacillin Sod/ Tazobactam Sod 100 ml @ 25 mls/hr Q8HR IV 11/12/24 06:00 UNV Ondansetron HCl 4 mg Q4HPRN PRN IV 11/12/24 07:45 11/12/24 16:33 4 MG Potassium Chloride/Dextrose/ Sod Cl 1,000 ml @ 100 mls/hr Q10H IV 11/12/24 14:15 11/13/24 09:17 100 MLS/HR Pantoprazole Sodium 40 mg DAILY IV 11/13/24 10:00 11/15/24 13:34 40 MG Morphine Sulfate 2 mg Q4HPRN PRN IV 11/12/24 16:45 11/15/24 13:46 2 MG Piperacillin Sod/ Tazobactam Sod 100 ml @ 25 mls/hr Q8H IV 11/13/24 16:00 11/15/24 03:56 25 MLS/HR Vancomycin HCl 300 ml @ 200 mls/hr Q12H IV 11/13/24 15:00 UNV Vancomycin HCl 250 ml @ 200 mls/hr Q6H IV 11/13/24 20:00 11/15/24 15:25 200 MLS/HR Amino Acids/ Electrolytes/ Dextrose 1,000 ml @ 41 mls/hr DAILY@2200 IV 11/15/24 22:00 11/16/24 21:59 Dextrose 50 ml UD IV 11/15/24 12:00 Sodium Chloride 10 ml QSHIFT@10,22 IV 11/15/24 22:00 Amino Acids 0 ml @ 0 mls/hr PER PHARMACY IV 11/15/24 14:00 Diagnostic Test (Pha) 1 strip Q6HR 11/15/24 18:00 Insulin Human Regular FOLLOW SLIDING SCALE Q6HR SC 11/15/24 18:00 laboratory and microbiology Laboratory Tests 11/15/24 04:54 Test 11/15/24 04:54 Range/Units Serum Glucose 108 H 74-106 mg/dL Problem List/Assessment/Plan Problem List/Assessment/Plan 11/13/24feels well, abdomen non tender, ;leukocytosis, continue, as is, repeat CT scan in 48 hours 11/15/24 UNDERWENT PERCUTANEOUS DRAINAGE OF PERICOLONIC ABSCESS, ABDOMEN NON DISTENDED, NON TENDER. WILL FOLLOW Plan discussed with: Patient DANA COHW MD Nov 15, 2024 16:55
[2024-11-15] MEDS: SODIUM CHLOR 0.9% PF (SALINE LOCK) 10ML VIAL/SYR IV SCH (22:13)
[2024-11-16] VITALS (9 sets, daily range): BP systolic 128–158; BP diastolic 90–104; PULSE 94–111; RESP 18–20; TEMP 96–98.5; O2SAT 94–97
[2024-11-16] MEDS: AMINO ACID INFUSION IN D10W 1,000 ML IV SCH (02:50)
--- NOTE | 2024-11-16 09:10 | DVHPN2 ---
Progress Note Date Seen: Nov 16, 2024 Medical Necessity Reason Pt with a Central, PICC or Fol: No Objective vital signs Vital Sign Date Time Temp Pulse Resp B/P (MAP) Pulse Ox O2 Delivery O2 Flow Rate FiO2 11/16/24 05:11 96.0 96 19 158/90 (112) 94 96.0 11/15/24 20:00 Room Air* 0 21 Total Intake and Output 11/15/24 11/15/24 11/16/24 15:00 23:00 07:00 Intake Total 100 ml 200 ml Output Total 225 ml Balance -125 ml 200 ml medications Current Medications Medications Dose Ordered Sig/Edis Route Start Time Stop Time Status Last Admin Dose Admin Vancomycin HCl 0 ml @ 0 mls/hr UD IV 11/11/24 23:30 Acetaminophen 650 mg Q6HPRN PRN PO 11/11/24 23:45 Piperacillin Sod/ Tazobactam Sod 100 ml @ 25 mls/hr Q8HR IV 11/12/24 06:00 UNV Ondansetron HCl 4 mg Q4HPRN PRN IV 11/12/24 07:45 11/12/24 16:33 4 MG Potassium Chloride/Dextrose/ Sod Cl 1,000 ml @ 100 mls/hr Q10H IV 11/12/24 14:15 11/15/24 12:15 100 MLS/HR Pantoprazole Sodium 40 mg DAILY IV 11/13/24 10:00 11/15/24 13:34 40 MG Morphine Sulfate 2 mg Q4HPRN PRN IV 11/12/24 16:45 11/15/24 21:23 2 MG Piperacillin Sod/ Tazobactam Sod 100 ml @ 25 mls/hr Q8H IV 11/13/24 16:00 11/16/24 05:09 25 MLS/HR Vancomycin HCl 300 ml @ 200 mls/hr Q12H IV 11/13/24 15:00 UNV Vancomycin HCl 250 ml @ 200 mls/hr Q6H IV 11/13/24 20:00 11/15/24 22:09 200 MLS/HR Amino Acids/ Electrolytes/ Dextrose 1,000 ml @ 41 mls/hr DAILY@2200 IV 11/15/24 22:00 11/16/24 21:59 11/16/24 02:50 41 MLS/HR Dextrose 50 ml UD IV 11/15/24 12:00 Sodium Chloride 10 ml QSHIFT@10,22 IV 11/15/24 22:00 11/15/24 22:13 10 ML Amino Acids 0 ml @ 0 mls/hr PER PHARMACY IV 11/15/24 14:00 Diagnostic Test (Pha) 1 strip Q6HR 11/15/24 18:00 11/16/24 00:00 1 STRIP Insulin Human Regular FOLLOW SLIDING SCALE Q6HR SC 11/15/24 18:00 laboratory and microbiology Laboratory Tests 11/15/24 04:54 Test 11/16/24 07:04 Range/Units Serum Glucose Pending Problem List/Assessment/Plan Problem List/Assessment/Plan 11/13/24feels well, abdomen non tender, ;leukocytosis, continue, as is, repeat CT scan in 48 hours 11/15/24 UNDERWENT PERCUTANEOUS DRAINAGE OF PERICOLONIC ABSCESS, ABDOMEN NON DISTENDED, NON TENDER. WILL FOLLOW 11/16/24 feels well, hungry, abdomen non tyender, derainage purulent, will irrigate, allow po intake Plan discussed with: Patient DANA CHOW MD Nov 16, 2024 09:09
[2024-11-16 10:05] LABS: Anion Gap 6 (5-15)
[2024-11-16 10:12] LABS: Alanine Aminotransferase 50 U/L (7-40); Albumin 3.2 g/dL (3.2-4.8); Alkaline Phosphatase 87 U/L (46-116); BUN/Creatinine Ratio 20.0 (10.0-20.0); Blood Urea Nitrogen 12 mg/dL (9-23); Calcium 8.6 mg/dL (8.7-10.4); Carbon Dioxide 26 mmol/L (20-31); Chloride 105 mmol/L (98-107); Glucose 127 mg/dL (74-106); Magnesium 1.9 mg/dL (1.6-2.6); Potassium 3.6 mmol/L (3.5-5.1); Sodium 137 mmol/L (136-145); Total Protein 5.9 g/dL (5.7-8.2); Triglycerides 115 mg/dL (< 150)
[2024-11-16 10:13] LABS: Bilirubin, Total 0.8 mg/dL (0.2-1.0)
--- NOTE | 2024-11-16 11:44 | DVHPN2 ---
Progress Note - Dictate Date Seen: Nov 16, 2024 Medical Necessity Reason Pt with a Central, PICC or Fol: No Subjective No new complaints Patient has been started on clear liquid diet He underwent a IR placement of percutaneous drainage tube into his pelvic abscess, 62 mL of purulent fluid were removed Today there was about less than 10 mL in the bag of purulent fluid Patient states he feels better and denies any nausea vomiting or abdominal pain He has not had any prior colonoscopy vital signs Vital Sign Date Time Temp Pulse Resp B/P (MAP) Pulse Ox O2 Delivery O2 Flow Rate FiO2 11/16/24 09:56 95 20 153/91 11/16/24 09:00 98.5 95 98.5 11/15/24 20:00 Room Air* 0 21 Total Intake and Output 11/15/24 11/15/24 11/16/24 15:00 23:00 07:00 Intake Total 1100 ml 450 ml Output Total 225 ml Balance 875 ml 450 ml medications Current Medications Medications Dose Ordered Sig/Edis Route Start Time Stop Time Status Last Admin Dose Admin Vancomycin HCl 0 ml @ 0 mls/hr UD IV 11/11/24 23:30 Acetaminophen 650 mg Q6HPRN PRN PO 11/11/24 23:45 Piperacillin Sod/ Tazobactam Sod 100 ml @ 25 mls/hr Q8HR IV 11/12/24 06:00 UNV Ondansetron HCl 4 mg Q4HPRN PRN IV 11/12/24 07:45 11/12/24 16:33 4 MG Potassium Chloride/Dextrose/ Sod Cl 1,000 ml @ 100 mls/hr Q10H IV 11/12/24 14:15 11/15/24 22:15 100 MLS/HR Pantoprazole Sodium 40 mg DAILY IV 11/13/24 10:00 11/16/24 09:30 40 MG Morphine Sulfate 2 mg Q4HPRN PRN IV 11/12/24 16:45 11/16/24 09:56 2 MG Piperacillin Sod/ Tazobactam Sod 100 ml @ 25 mls/hr Q8H IV 11/13/24 16:00 11/16/24 05:09 25 MLS/HR Vancomycin HCl 300 ml @ 200 mls/hr Q12H IV 11/13/24 15:00 UNV Vancomycin HCl 250 ml @ 200 mls/hr Q6H IV 11/13/24 20:00 11/16/24 09:57 200 MLS/HR Amino Acids/ Electrolytes/ Dextrose 1,000 ml @ 41 mls/hr DAILY@2200 IV 11/15/24 22:00 11/16/24 21:59 11/16/24 02:50 41 MLS/HR Dextrose 50 ml UD IV 11/15/24 12:00 Sodium Chloride 10 ml QSHIFT@10,22 IV 11/15/24 22:00 11/16/24 10:02 10 ML Amino Acids 0 ml @ 0 mls/hr PER PHARMACY IV 11/15/24 14:00 Diagnostic Test (Pha) 1 strip Q6HR 11/15/24 18:00 11/16/24 06:00 1 STRIP Insulin Human Regular FOLLOW SLIDING SCALE Q6HR SC 11/15/24 18:00 11/16/24 09:53 2 UNITS objective General Appearance: Alert, Oriented X3, Cooperative, No acute distress HEENT: Atraumatic, PERRLA Lungs: Clear to auscultation Cardiovascular: Regular rate Abdomen: Normal bowel sounds; drainage tube in place Musculoskeletal: Normal sensory function, Normal motor function Neuro: Cranial nerves 3-12 NL Skin: Dry, Intact Psych/Mental Status: Mental status NL, Mood NL laboratory and microbiology Laboratory Tests 11/16/24 09:26 11/15/24 04:54 Test 11/16/24 09:26 Range/Units Serum Glucose 127 H 74-106 mg/dL Problems(with codes): (1) Abscess of sigmoid colon due to diverticulitis (2) Testicular pain (3) Leukocytosis Prognosis Plan IV fluid hydration IV antibiotics Continue supportive care, ambulate patient Clear liquid diet has been started by surgical consult Patient has been advised to follow up in my office as an outpatient after discharge for elective colonoscopy Plan discussed with: Patient, Other (Nurse) DAVONTE BILLY MD Nov 16, 2024 11:44
--- NOTE | 2024-11-16 12:20 | DVHPN2 ---
Subjective Denies any symptoms Reviewed: Care Plan, H&P, Labs, Medications Changes from previous H/P or p: No Changes General: Per HPI Eyes: No Pain, No Vision change, No Conjunctivae inflammation, No Eyelid inflammation, No Other, No Redness ENT: No Ear pain, No Ear discharge, No Nose pain, No Nose discharge, No Nose congestion, No Mouth pain, No Mouth swelling, No Throat pain, No Throat swelling, No Other Cardiovascular: No Chest Pain, No Palpitations, No Orthopnea, No Paroxysmal Noc. Dyspnea, No Edema; Lt Headedness; No Other Respiratory: No Cough, No Dry, No Shortness of breath, No SOB with excertion, No Wheezing, No Hemoptysis, No Pleuritic Pain, No Sputum, No Other Gastrointestinal: Nausea, Vomiting; No Abdominal Pain; Diarrhea; No Constipation, No Melena, No Hematochezia, No Other Genitourinary: No Dysuria, No Frequency, No Incontinence, No Hematuria, No Retention, No Other Musculoskeletal: No other, No neck pain, No shoulder pain, No arm pain, No back pain, No hand pain, No leg pain, No foot pain Skin: No Rash, No Lesions, No Jaundice, No Bruising, No Other Objective Vitals Vital Signs Date Time Temp Pulse Resp B/P (MAP) Pulse Ox O2 Delivery O2 Flow Rate FiO2 11/16/24 09:56 95 20 153/91 11/16/24 09:00 98.5 95 98.5 11/15/24 20:00 Room Air* 0 21 Intake/Output Intake and Output 11/16/24 07:00 Intake Total 1550 ml Output Total 225 ml Balance 1325 ml Intake Oral 200 ml IV Total 1350 ml Drainage Total 225 ml # Voids 10 # Bowel Movements 3 General Appearance: Alert, Oriented X3, Cooperative, No acute distress, mild distress, moderate distress, severe distress, Other HEENT: Atraumatic, PERRLA Lungs: Clear to auscultation Cardiovascular: Regular rate, Normal S1, Normal S2 Abdomen: Normal bowel sounds Musculoskeletal: Normal sensory function, Normal motor function Neuro: Normal gait, Normal speech, Cranial nerves 3-12 NL Skin: Dry, Intact Psych/Mental Status: Mental status NL, Mood NL Medications Current Medications Medications Dose Ordered Sig/Edis Route Start Time Stop Time Status Last Admin Dose Admin Vancomycin HCl 0 ml @ 0 mls/hr UD IV 11/11/24 23:30 Acetaminophen 650 mg Q6HPRN PRN PO 11/11/24 23:45 Piperacillin Sod/ Tazobactam Sod 100 ml @ 25 mls/hr Q8HR IV 11/12/24 06:00 UNV Ondansetron HCl 4 mg Q4HPRN PRN IV 11/12/24 07:45 11/12/24 16:33 4 MG Potassium Chloride/Dextrose/ Sod Cl 1,000 ml @ 100 mls/hr Q10H IV 11/12/24 14:15 11/15/24 22:15 100 MLS/HR Pantoprazole Sodium 40 mg DAILY IV 11/13/24 10:00 11/16/24 09:30 40 MG Morphine Sulfate 2 mg Q4HPRN PRN IV 11/12/24 16:45 11/16/24 09:56 2 MG Piperacillin Sod/ Tazobactam Sod 100 ml @ 25 mls/hr Q8H IV 11/13/24 16:00 11/16/24 05:09 25 MLS/HR Vancomycin HCl 300 ml @ 200 mls/hr Q12H IV 11/13/24 15:00 UNV Vancomycin HCl 250 ml @ 200 mls/hr Q6H IV 11/13/24 20:00 11/16/24 09:57 200 MLS/HR Amino Acids/ Electrolytes/ Dextrose 1,000 ml @ 41 mls/hr DAILY@2200 IV 11/15/24 22:00 11/16/24 21:59 11/16/24 02:50 41 MLS/HR Dextrose 50 ml UD IV 11/15/24 12:00 Sodium Chloride 10 ml QSHIFT@10,22 IV 11/15/24 22:00 11/16/24 10:02 10 ML Amino Acids 0 ml @ 0 mls/hr PER PHARMACY IV 11/15/24 14:00 Diagnostic Test (Pha) 1 strip Q6HR 11/15/24 18:00 11/16/24 11:39 1 STRIP Insulin Human Regular FOLLOW SLIDING SCALE Q6HR SC 11/15/24 18:00 11/16/24 09:53 2 UNITS Fat Emulsion Intravenous 50 ml/ Potassium Chloride 10 meq/ Potassium Phosphate 20 meq/ Magnesium Sulfate 4 meq/ Multivitamins 10 ml/Chromium/ Copper/Manganese/ Zinc 1 ml/Amino Acids/Dextrose/ Purified Water 1,021.5455 ml @ 42 mls/hr [id number] IV 11/16/24 22:00 11/17/24 21:59 Laboratory Results Laboratory Tests 11/15/24 04:54 11/16/24 09:26 Chemistry Test 11/16/24 09:26 Albumin 3.2 g/dL (3.2-4.8) Calcium Level 8.6 mg/dL (8.7-10.4) L Magnesium Level 1.9 mg/dL (1.6-2.6) Phosphorus Level 2.5 mg/dL (2.4-5.1) Total Protein 5.9 g/dL (5.7-8.2) Lipid panel Test 11/16/24 09: Triglycerides Level 115 mg/dL (< 150) LFT Test 11/16/24 09:26 Alanine Aminotransferase (ALT) 50 U/L (7-40) H Alkaline Phosphatase 87 U/L (46-116) Aspartate Amino Transferase (AST) 31 U/L (13-40) Total Bilirubin 0.8 mg/dL (0.2-1.0) Urinalysis Test 11/11/24 20:50 Urine Color Yellow (Yellow) Urine Clarity Clear (Clear) Urine pH 6.0 (5.0-9.0) Urine Specific [place] 1.021 (1.001-1.035) Urine Protein 1+ (Negative) H Urine Ketones Negative (Negative) Urine Blood 2+ /uL (Negative) H Urine Nitrite Negative (Negative) Urine Bilirubin Negative (Negative) Urine Urobilinogen 3 mg/dL (Negative) H Urine Leukocyte Esterase Negative /uL (Negative) Urine RBC 1 /hpf (0 - 3) Urine Microscopic WBC 6 /HPF (0-3) H Urine Squamous Epithelial Cells None seen /hpf (<5) Urine Bacteria None seen /hpf (None Seen) Urine Mucus Few (None Seen) Urine Glucose 1+ mg/dL (Normal) H Microbiology Microbiology Date/Time Source Procedure Growth Status 11/15/24 13:15 Aspirate Gram Stain Pending Resulted 11/15/24 13:15 Aspirate Body Fluid Culture - Preliminary Resulted 11/13/24 12:10 Voided Urine Urine Culture - Final Complete 11/12/24 00:25 Nose MRSA Screen - Final Complete 11/11/24 20:15 Blood Blood Culture - Preliminary NO GROWTH AFTER 72 HOURS OF INCUBATION. Resulted Labs and/or images reviewed: Labs reviewed by me, Image(s) reviewed by me Assessment/Plan Assessment/Plan Impression: -severe sepsis secondary to perforated diverticulitis -obesity -hypokalemia -hyponatremia Plan: Events: Clear liquid diet. S/P drain placement for diverticular abscess. Culture pending. -continue current antibiotic therapy -PPI -potassium replacement -change IV fluids to D5 NS with 40 mEq of potassium chloride -pain management -repeat labs in a.m. Total time spent with patient discussing and formulating plan of care: 35 minutes. This medical document was created using an electronic medical record system with [employer] dictation system. Although this document has been carefully reviewed, there may still be some phonetic and typographical errors. These areas are purely typographical due to imperfections of the software programs, and do not reflect any compromise in the patient's medical care. Plan discussed with: Patient, Other (RN) My Orders Orders - SANDRA GOODMAN NP Procedure Category Date Status Time Nursing Protocol Picc PETE 11/15/24 In Process 12:17 Change Dressing Prn PETE 11/15/24 In Process 12:17 PICC BD 11/15/24 Transmitted 12:17 Sodium Chloride Lock PHA 11/15/24 In Process (Saline Lock Ns) 22:00 Do Not Use Picc For PETE 11/15/24 In Process Blood Cult 12:17 May Draw Blood From PETE 11/15/24 In Process Picc 12:17 Ok To Use Picc PETE 11/15/24 In Process 12:17 Change Picc Dressing PETE 11/15/24 In Process Q7 Days 12:17 Us Guided Vascular US 11/15/24 Taken Access 12:17 Tpn Per Pharmacy PHA 11/15/24 In Process 14:00 * Dietary Consult CONS 11/15/24 Transmitted 18:07 Communication Order ORDERS 11/15/24 Transmitted 14:00 Complete Blood Count LAB 11/17/24 Verified 05:00 Complete Blood Count LAB 11/18/24 Verified 05:00 Complete Blood Count LAB 11/19/24 Verified 05:00 Amino Acid PHA 11/16/24 In Process Infusion... W/Fat 22:00 Date of Service: Nov 16, 2024 Billing Provider: SANDRA GOODMAN NP Common Visit Codes: [id number] INP/OBS CARE(HIGH) SANDRA GOODMAN NP Nov 16, 2024 12:20
[2024-11-16] MEDS: VANCOMYCIN 1.25GM/250ML 250 ML IV SCH (14:12)
[2024-11-16] MEDS: PIPERACILLIN-TAZOB 3.375GM 100 ML IV SCH (16:12)
[2024-11-16] MEDS: hydrALAZINE HCL 20 MG/ML VL IV PRN (16:13)
[2024-11-16] MEDS: TPN PER PHARMACY IV NR (23:20)
[2024-11-17] VITALS (7 sets, daily range): BP systolic 138–148; BP diastolic 89–99; PULSE 90–116; RESP 16–20; TEMP 97.5–98.9; O2SAT 95–97
[2024-11-17 06:14] LABS: Hematocrit 35.8 % (41.0-53.0); Hemoglobin 12.2 g/dL (13.5-17.5); Mean Corpuscular Hemoglobin 28.2 pg (28.0-32.0); Mean Corpuscular Volume 83.0 fL (80.0-100.0); Nucleated Red Blood Cells % 0.0 %
[2024-11-17 06:33] LABS: Alkaline Phosphatase 81 U/L (46-116); Anion Gap 6 (5-15); BUN/Creatinine Ratio 14.8 (10.0-20.0); Carbon Dioxide 25 mmol/L (20-31); Chloride 100 mmol/L (98-107); Magnesium 1.8 mg/dL (1.6-2.6)
[2024-11-17 06:34] LABS: Alanine Aminotransferase 44 U/L (7-40); Albumin 3.0 g/dL (3.2-4.8); Bilirubin, Total 0.7 mg/dL (0.2-1.0); Blood Urea Nitrogen 8 mg/dL (9-23); Calcium 8.2 mg/dL (8.7-10.4); Glucose 134 mg/dL (74-106); Potassium 3.4 mmol/L (3.5-5.1); Sodium 131 mmol/L (136-145); Total Protein 5.4 g/dL (5.7-8.2)
--- NOTE | 2024-11-17 09:41 | DVHPN2 ---
Progress Note - Surgical Date Seen: Nov 17, 2024 Post op day Post op day: 0 Subjective Review of Systems: HEENT:Normal, CVS:Normal, RESPIRATORY:Normal, GI:Abnormal, :Normal, MSK:Normal, NEURO:Normal Objective Vital signs Vital Sign Date Time Temp Pulse Resp B/P (MAP) Pulse Ox O2 Delivery O2 Flow Rate FiO2 11/17/24 05:00 98.4 92 18 140/89 (106) 96 98.4 11/16/24 20:00 Room Air* 0 21 Total Intake and Output 11/16/24 11/16/24 11/17/24 15:00 23:00 07:00 Intake Total 3030 ml 1255 ml Output Total 425 ml Balance 2605 ml 1255 ml Medications Current Medications Medications Dose Ordered Sig/Edis Route Start Time Stop Time Status Last Admin Dose Admin Vancomycin HCl 0 ml @ 0 mls/hr UD IV 11/11/24 23:30 Acetaminophen 650 mg Q6HPRN PRN PO 11/11/24 23:45 Piperacillin Sod/ Tazobactam Sod 100 ml @ 25 mls/hr Q8HR IV 11/12/24 06:00 UNV Ondansetron HCl 4 mg Q4HPRN PRN IV 11/12/24 07:45 11/12/24 16:33 4 MG Pantoprazole Sodium 40 mg DAILY IV 11/13/24 10:00 11/17/24 08:58 40 MG Morphine Sulfate 2 mg Q4HPRN PRN IV 11/12/24 16:45 11/16/24 23:01 2 MG Vancomycin HCl 300 ml @ 200 mls/hr Q12H IV 11/13/24 15:00 UNV Dextrose 50 ml UD IV 11/15/24 12:00 Sodium Chloride 10 ml QSHIFT@10,22 IV 11/15/24 22:00 11/17/24 08:59 10 ML Amino Acids 0 ml @ 0 mls/hr PER PHARMACY IV 11/15/24 14:00 Diagnostic Test (Pha) 1 strip Q6HR 11/15/24 18:00 11/17/24 06:03 1 STRIP Insulin Human Regular FOLLOW SLIDING SCALE Q6HR SC 11/15/24 18:00 11/16/24 12:50 4 UNITS Fat Emulsion Intravenous 50 ml/ Potassium Chloride 10 meq/ Potassium Phosphate 20 meq/ Magnesium Sulfate 4 meq/ Multivitamins 10 ml/Chromium/ Copper/Manganese/ Zinc 1 ml/Amino Acids/Dextrose/ Purified Water 1,021.5455 ml @ 42 mls/hr [id number] IV 11/16/24 22:00 11/17/24 21:59 11/16/24 23:20 42 MLS/HR Piperacillin Sod/ Tazobactam Sod 100 ml @ 25 mls/hr Q6H IV 11/16/24 16:00 11/17/24 05:56 25 MLS/HR Vancomycin HCl 250 ml @ 200 mls/hr Q6H IV 11/16/24 14:00 11/17/24 08:58 200 MLS/HR Hydralazine HCl 10 mg Q6HP PRN IV 11/16/24 15:45 11/16/24 16:13 10 MG Laboratory Laboratory Tests 11/17/24 04:38 Test 11/17/24 04:38 Range/Units Serum Glucose 134 H 74-106 mg/dL Microbiology Date/Time Source Procedure Growth Status 11/15/24 13:15 Aspirate Gram Stain Pending Resulted 11/15/24 13:15 Aspirate Body Fluid Culture - Preliminary Resulted 11/13/24 12:10 Voided Urine Urine Culture - Final Complete 11/12/24 00:25 Nose MRSA Screen - Final Complete 11/11/24 20:15 Blood Blood Culture - Final NO GROWTH AFTER 5 DAYS OF INCUBATION. Complete Examination: GENERAL:Normal, HEENT:Normal, NECK:Normal, LUNGS:Normal, CVS:Normal, ABDOMEN:Abnormal, MSK:Normal, SKIN:Normal, NEURO:Normal, :Normal Labs and/or images reviewed: Labs reviewed by me Problem List/Assessment/Plan Problems: (1) Abscess of sigmoid colon due to diverticulitis Assessment and Plan less tenderness, no pain, passing flatus, no BM. wants to stay on po liquids for now. Plan discussed with Plan discussed with: Patient Visit Coding Surgery Date of Service if different f: Nov 17, 2024 Billing Provider: DANA CHOW MD Surgery Visit Codes: [id number] INP/OBS CARE(HIGH) DANA CHOW MD Nov 17, 2024 09:41
[2024-11-17] MEDS ORDERED: POTASSIUM CHL 20MEQ/100ML 100 ML IV ONE (10:45)
[2024-11-17] MEDS: VANCOMYCIN 1.25GM/250ML 250 ML IV SCH (11:26)
[2024-11-17] MEDS: SODIUM PHOSPHATES 24 MEQ in SODIUM CHL 0.9% 100 ML IV ONE (13:00)
[2024-11-17] MEDS: POTASSIUM CHL 20MEQ/100ML 100 ML IV SCH (13:15)
--- NOTE | 2024-11-17 15:55 | DVHPN2 ---
Subjective Feeling better 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 (Log Inspector) Changes from previous H/P or p: No Changes General: Per HPI Objective Vitals Vital Signs Date Time Temp Pulse Resp B/P (MAP) Pulse Ox O2 Delivery O2 Flow Rate FiO2 11/17/24 09:00 97.9 95 20 147/93 (111) 96 97.9 11/17/24 08:00 Room Air* 0 21 Intake/Output Intake and Output 11/17/24 07:00 Intake Total 4285 ml Output Total 425 ml Balance 3860 ml Intake Oral 2385 ml IV Total 1900 ml Output Urine Total 350 ml Drainage Total 75 ml # Voids 7 # Bowel Movements 2 General Appearance: Alert, Oriented X3, Cooperative, No acute distress HEENT: Atraumatic, PERRLA Lungs: Clear to auscultation Cardiovascular: Regular rate Abdomen: Normal bowel sounds Neuro: Normal gait, Normal speech Psych/Mental Status: Mental status NL, Mood NL Medications Current Medications Medications Dose Ordered Sig/Edis Route Start Time Stop Time Status Last Admin Dose Admin Vancomycin HCl 0 ml @ 0 mls/hr UD IV 11/11/24 23:30 Acetaminophen 650 mg Q6HPRN PRN PO 11/11/24 23:45 Piperacillin Sod/ Tazobactam Sod 100 ml @ 25 mls/hr Q8HR IV 11/12/24 06:00 UNV Ondansetron HCl 4 mg Q4HPRN PRN IV 11/12/24 07:45 11/12/24 16:33 4 MG Pantoprazole Sodium 40 mg DAILY IV 11/13/24 10:00 11/17/24 08:58 40 MG Morphine Sulfate 2 mg Q4HPRN PRN IV 11/12/24 16:45 11/16/24 23:01 2 MG Vancomycin HCl 300 ml @ 200 mls/hr Q12H IV 11/13/24 15:00 UNV Dextrose 50 ml UD IV 11/15/24 12:00 Sodium Chloride 10 ml QSHIFT@10,22 IV 11/15/24 22:00 11/17/24 08:59 10 ML Amino Acids 0 ml @ 0 mls/hr PER PHARMACY IV 11/15/24 14:00 Diagnostic Test (Pha) 1 strip Q6HR 11/15/24 18:00 11/17/24 12:09 1 STRIP Insulin Human Regular FOLLOW SLIDING SCALE Q6HR SC 11/15/24 18:00 11/16/24 12:50 4 UNITS Fat Emulsion Intravenous 50 ml/ Potassium Chloride 10 meq/ Potassium Phosphate 20 meq/ Magnesium Sulfate 4 meq/ Multivitamins 10 ml/Chromium/ Copper/Manganese/ Zinc 1 ml/Amino Acids/Dextrose/ Purified Water 1,021.5455 ml @ 42 mls/hr [id number] IV 11/16/24 22:00 11/17/24 21:59 11/16/24 23:20 42 MLS/HR Piperacillin Sod/ Tazobactam Sod 100 ml @ 25 mls/hr Q6H IV 11/16/24 16:00 11/17/24 12:10 25 MLS/HR Hydralazine HCl 10 mg Q6HP PRN IV 11/16/24 15:45 11/16/24 16:13 10 MG Fat Emulsion Intravenous 150 ml/Sodium Chloride 60 meq/ Potassium Chloride 40 meq/ Potassium Phosphate 44 meq/ Calcium Gluconate 4.65 meq/ Magnesium Sulfate 8 meq/ Multivitamins 10 ml/Chromium/ Copper/Manganese/ Zinc 1 ml/Amino Acids/Dextrose 1,368 ml @ 57 mls/hr Q24H IV 11/17/24 22:00 11/18/24 21:59 Vancomycin HCl 250 ml @ 200 mls/hr Q6H IV 11/17/24 11:00 11/17/24 11:26 200 MLS/HR Laboratory Results Laboratory Tests 11/17/24 04:38 Chemistry Test 11/17/24 04:38 Albumin 3.0 g/dL (3.2-4.8) L Calcium Level 8.2 mg/dL (8.7-10.4) L Magnesium Level 1.8 mg/dL (1.6-2.6) Phosphorus Level 2.2 mg/dL (2.4-5.1) L Total Protein 5.4 g/dL (5.7-8.2) L LFT Test 11/17/24 04:38 Alanine Aminotransferase (ALT) 44 U/L (7-40) H Alkaline Phosphatase 81 U/L (46-116) Aspartate Amino Transferase (AST) 30 U/L (13-40) Total Bilirubin 0.7 mg/dL (0.2-1.0) HgA1c, TSH Test 11/17/24 04:38 Hemoglobin A1c 5.5 % A1C (<5.7) Urinalysis Test 11/11/24 20:50 Urine Color Yellow (Yellow) Urine Clarity Clear (Clear) Urine pH 6.0 (5.0-9.0) Urine Specific [place] 1.021 (1.001-1.035) Urine Protein 1+ (Negative) H Urine Ketones Negative (Negative) Urine Blood 2+ /uL (Negative) H Urine Nitrite Negative (Negative) Urine Bilirubin Negative (Negative) Urine Urobilinogen 3 mg/dL (Negative) H Urine Leukocyte Esterase Negative /uL (Negative) Urine RBC 1 /hpf (0 - 3) Urine Microscopic WBC 6 /HPF (0-3) H Urine Squamous Epithelial Cells None seen /hpf (<5) Urine Bacteria None seen /hpf (None Seen) Urine Mucus Few (None Seen) Urine Glucose 1+ mg/dL (Normal) H Microbiology Microbiology Date/Time Source Procedure Growth Status 11/15/24 13:15 Aspirate Gram Stain Pending Resulted 11/15/24 13:15 Body Fluid Culture - Final Escherichia coli Resulted 11/13/24 12:10 Voided Urine Urine Culture - Final Complete 11/12/24 00:25 Nose MRSA Screen - Final Complete 11/11/24 20:15 Blood Blood Culture - Final NO GROWTH AFTER 5 DAYS OF INCUBATION. Complete Assessment/Plan Assessment/Plan Perforated diverticulitis/diverticular abscess status post percutaneous drainage UTI Hyperglycemia Morbid obesity Hypokalemia Hyponatremia Plan: Continue current plan of care. Check A1c Plan discussed with: Patient Date of Service: Nov 17, 2024 Billing Provider: HERNANDEZ DAVE MD Common Visit Codes: [id number] INP/OBS CARE(HIGH) HERNANDEZ DAVE MD Nov 17, 2024 15:55
[2024-11-17] MEDS: TPN PER PHARMACY IV NR (22:22)
[2024-11-18] VITALS (7 sets, daily range): BP systolic 113–139; BP diastolic 82–91; PULSE 106–121; RESP 18–19; TEMP 97.2–99.7; O2SAT 95–97
[2024-11-18] MEDS: PIPERACILLIN-TAZOB 3.375GM 100 ML IV SCH (01:37)
[2024-11-18 06:16] LABS: Hematocrit 36.4 % (41.0-53.0); Hemoglobin 12.4 g/dL (13.5-17.5); Mean Corpuscular Hemoglobin 28.1 pg (28.0-32.0); Mean Corpuscular Volume 82.6 fL (80.0-100.0); Nucleated Red Blood Cells % 0.0 %
[2024-11-18 06:28] LABS: Alkaline Phosphatase 78 U/L (46-116); Anion Gap 9 (5-15); Bilirubin, Total 0.7 mg/dL (0.2-1.0); Carbon Dioxide 24 mmol/L (20-31); Chloride 100 mmol/L (98-107); Magnesium 1.9 mg/dL (1.6-2.6); Potassium 3.7 mmol/L (3.5-5.1)
[2024-11-18 06:31] LABS: Alanine Aminotransferase 40 U/L (7-40); Albumin 3.0 g/dL (3.2-4.8); BUN/Creatinine Ratio 8.8 (10.0-20.0); Blood Urea Nitrogen < 5 mg/dL (9-23); Calcium 8.5 mg/dL (8.7-10.4); Glucose 138 mg/dL (74-106); Sodium 133 mmol/L (136-145); Total Protein 5.6 g/dL (5.7-8.2)
--- NOTE | 2024-11-18 11:00 | DVH ---
Right upper extremity venous duplex. Clinical History: bruising Comparison: None Findings: Duplex Doppler evaluation of the right upper extremity performed including color Doppler and spectral /pulsed waveform analysis. RIGHT SIDE: A PICC line is present. Partially compressible echogenic thrombus is visualized from the right subcla vian and axillary veins. The brachial, radial and ulnar veins are patent. There is thrombus and part ial compressibility of the right basilic vein. Impression: 1. Deep vein thrombosis in the right subclavian and axillary veins. 2. Superficial thrombophlebitis in the right basilic vein.
--- NOTE | 2024-11-18 11:03 | DVHPN2 ---
Progress Note - Surgical Date Seen: Nov 18, 2024 Post op day Post op day: 0 Subjective Review of Systems: HEENT:Normal, CVS:Normal, RESPIRATORY:Normal, GI:Normal, :Normal, MSK:Normal, NEURO:Normal Objective Vital signs Vital Sign Date Time Temp Pulse Resp B/P (MAP) Pulse Ox O2 Delivery O2 Flow Rate FiO2 11/18/24 08:20 97.8 111 19 135/91 (106) 95 97.8 11/18/24 08:00 Room Air* 0 21 Total Intake and Output 11/17/24 11/17/24 11/18/24 15:00 23:00 07:00 Intake Total 1710 ml 1150 ml Output Total 1 ml Balance 1709 ml 1150 ml Medications Current Medications Medications Dose Ordered Sig/Edis Route Start Time Stop Time Status Last Admin Dose Admin Vancomycin HCl 0 ml @ 0 mls/hr UD IV 11/11/24 23:30 Acetaminophen 650 mg Q6HPRN PRN PO 11/11/24 23:45 Piperacillin Sod/ Tazobactam Sod 100 ml @ 25 mls/hr Q8HR IV 11/12/24 06:00 UNV Ondansetron HCl 4 mg Q4HPRN PRN IV 11/12/24 07:45 11/12/24 16:33 4 MG Pantoprazole Sodium 40 mg DAILY IV 11/13/24 10:00 11/18/24 10:08 40 MG Morphine Sulfate 2 mg Q4HPRN PRN IV 11/12/24 16:45 11/17/24 22:59 2 MG Vancomycin HCl 300 ml @ 200 mls/hr Q12H IV 11/13/24 15:00 UNV Dextrose 50 ml UD IV 11/15/24 12:00 Sodium Chloride 10 ml QSHIFT@10,22 IV 11/15/24 22:00 11/18/24 10:09 10 ML Amino Acids 0 ml @ 0 mls/hr PER PHARMACY IV 11/15/24 14:00 Diagnostic Test (Pha) 1 strip Q6HR 11/15/24 18:00 11/18/24 06:00 1 STRIP Insulin Human Regular FOLLOW SLIDING SCALE Q6HR SC 11/15/24 18:00 11/18/24 06:58 2 UNITS Hydralazine HCl 10 mg Q6HP PRN IV 11/16/24 15:45 11/16/24 16:13 10 MG Fat Emulsion Intravenous 150 ml/Sodium Chloride 60 meq/ Potassium Chloride 40 meq/ Potassium Phosphate 44 meq/ Calcium Gluconate 4.65 meq/ Magnesium Sulfate 8 meq/ Multivitamins 10 ml/Chromium/ Copper/Manganese/ Zinc 1 ml/Amino Acids/Dextrose 1,368 ml @ 57 mls/hr Q24H IV 11/17/24 22:00 11/18/24 21:59 11/17/24 22:22 57 MLS/HR Vancomycin HCl 250 ml @ 200 mls/hr Q6H IV 11/17/24 11:00 11/18/24 10:09 200 MLS/HR Piperacillin Sod/ Tazobactam Sod 100 ml @ 25 mls/hr Q6H IV 11/18/24 01:00 11/18/24 08:04 25 MLS/HR Fat Emulsion Intravenous 200 ml/Sodium Chloride 80 meq/ Sodium Acetate 40 meq/Potassium Chloride 40 meq/ Potassium Phosphate 22 meq/ Calcium Gluconate 2.3 meq/Magnesium Sulfate 8 meq/ Multivitamins 10 ml/Chromium/ Copper/Manganese/ Zinc 1 ml/Amino Acids/Dextrose 1,582.9462 ml @ 66 mls/hr Q24H IV 11/18/24 22:00 11/19/24 21:59 Laboratory Laboratory Tests 11/18/24 05:19 Test 11/18/24 05:19 Range/Units Serum Glucose 138 H 74-106 mg/dL Microbiology Date/Time Source Procedure Growth Status 11/15/24 13:15 Aspirate Gram Stain - Final Complete 11/15/24 13:15 Body Fluid Culture - Final Escherichia coli Complete 11/13/24 12:10 Voided Urine Urine Culture - Final Complete 11/12/24 00:25 Nose MRSA Screen - Final Complete 11/11/24 20:15 Blood Blood Culture - Final NO GROWTH AFTER 5 DAYS OF INCUBATION. Complete Examination: GENERAL:Normal, HEENT:Normal, NECK:Normal, LUNGS:Normal, CVS:Normal, ABDOMEN:Normal, MSK:Normal, SKIN:Normal, NEURO:Normal, :Normal Labs and/or images reviewed: Labs reviewed by me Problem List/Assessment/Plan Assessment and Plan less tenderness, no pain, passing flatus, no BM. wants to stay on po liquids for now. My Orders My Orders feels well, no abdominal pain, nor,al bowel activity, abdomen non distended, non tender. WBC increasing, i [id number] it may be due to PICC line. will DC Plan discussed with Plan discussed with: Patient Visit Coding Surgery Date of Service if different f: Nov 18, 2024 Billing Provider: DANA CHOW MD Surgery Visit Codes: [id number] INP/OBS CARE(HIGH) DANA CHOW MD Nov 18, 2024 11:03
[2024-11-18] MEDS: APIXABAN 5 MG TAB PO ONE (14:18)
--- NOTE | 2024-11-18 15:15 | DVHPN2 ---
Subjective Feeling better. Right upper extremity ultrasound showed DVT. No chest pain. 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 (Dispatch Manager) Changes from previous H/P or p: No Changes General: Per HPI Objective Vitals Vital Signs Date Time Temp Pulse Resp B/P (MAP) Pulse Ox O2 Delivery O2 Flow Rate FiO2 11/18/24 12:15 97.5 121 18 121/88 (99) 95 97.5 11/18/24 08:00 Room Air* 0 21 Intake/Output Intake and Output 11/18/24 07:00 Intake Total 2860 ml Output Total 1 ml Balance 2859 ml Intake Oral 1650 ml IV Total 1210 ml Stool Total 1 ml # Voids 10 General Appearance: Alert, Oriented X3, Cooperative, No acute distress HEENT: Atraumatic, PERRLA Lungs: Clear to auscultation Cardiovascular: Regular rate Abdomen: Normal bowel sounds Neuro: Normal gait, Normal speech Psych/Mental Status: Mental status NL, Mood NL Medications Current Medications Medications Dose Ordered Sig/Edis Route Start Time Stop Time Status Last Admin Dose Admin Vancomycin HCl 0 ml @ 0 mls/hr UD IV 11/11/24 23:30 Acetaminophen 650 mg Q6HPRN PRN PO 11/11/24 23:45 Piperacillin Sod/ Tazobactam Sod 100 ml @ 25 mls/hr Q8HR IV 11/12/24 06:00 UNV Ondansetron HCl 4 mg Q4HPRN PRN IV 11/12/24 07:45 11/12/24 16:33 4 MG Pantoprazole Sodium 40 mg DAILY IV 11/13/24 10:00 11/18/24 10:08 40 MG Morphine Sulfate 2 mg Q4HPRN PRN IV 11/12/24 16:45 11/17/24 22:59 2 MG Vancomycin HCl 300 ml @ 200 mls/hr Q12H IV 11/13/24 15:00 UNV Dextrose 50 ml UD IV 11/15/24 12:00 Sodium Chloride 10 ml QSHIFT@10,22 IV 11/15/24 22:00 11/18/24 10:09 10 ML Diagnostic Test (Pha) 1 strip Q6HR 11/15/24 18:00 11/18/24 12:27 1 STRIP Insulin Human Regular FOLLOW SLIDING SCALE Q6HR SC 11/15/24 18:00 11/18/24 12:45 2 UNITS Hydralazine HCl 10 mg Q6HP PRN IV 11/16/24 15:45 11/16/24 16:13 10 MG Fat Emulsion Intravenous 150 ml/Sodium Chloride 60 meq/ Potassium Chloride 40 meq/ Potassium Phosphate 44 meq/ Calcium Gluconate 4.65 meq/ Magnesium Sulfate 8 meq/ Multivitamins 10 ml/Chromium/ Copper/Manganese/ Zinc 1 ml/Amino Acids/Dextrose 1,368 ml @ 57 mls/hr Q24H IV 11/17/24 22:00 11/18/24 21:59 11/17/24 22:22 57 MLS/HR Vancomycin HCl 250 ml @ 200 mls/hr Q6H IV 11/17/24 11:00 11/18/24 10:09 200 MLS/HR Piperacillin Sod/ Tazobactam Sod 100 ml @ 25 mls/hr Q6H IV 11/18/24 01:00 11/18/24 12:48 25 MLS/HR Fat Emulsion Intravenous 200 ml/Sodium Chloride 80 meq/ Sodium Acetate 40 meq/Potassium Chloride 40 meq/ Potassium Phosphate 22 meq/ Calcium Gluconate 2.3 meq/Magnesium Sulfate 8 meq/ Multivitamins 10 ml/Chromium/ Copper/Manganese/ Zinc 1 ml/Amino Acids/Dextrose 1,582.9462 ml @ 66 mls/hr Q24H IV 11/18/24 22:00 11/19/24 21:59 Cancel Apixaban 10 mg BID PO 11/18/24 22:00 11/25/24 09:59 Apixaban 5 mg BID PO 11/25/24 22:00 Laboratory Results Laboratory Tests 11/18/24 05:19 Chemistry Test 11/18/24 05:19 Albumin 3.0 g/dL (3.2-4.8) L Calcium Level 8.5 mg/dL (8.7-10.4) L Magnesium Level 1.9 mg/dL (1.6-2.6) Phosphorus Level 3.4 mg/dL (2.4-5.1) Total Protein 5.6 g/dL (5.7-8.2) L LFT Test 11/18/24 05:19 Alanine Aminotransferase (ALT) 40 U/L (7-40) Alkaline Phosphatase 78 U/L (46-116) Aspartate Amino Transferase (AST) 24 U/L (13-40) Total Bilirubin 0.7 mg/dL (0.2-1.0) Urinalysis Test 11/11/24 20:50 Urine Color Yellow (Yellow) Urine Clarity Clear (Clear) Urine pH 6.0 (5.0-9.0) Urine Specific [place] 1.021 (1.001-1.035) Urine Protein 1+ (Negative) H Urine Ketones Negative (Negative) Urine Blood 2+ /uL (Negative) H Urine Nitrite Negative (Negative) Urine Bilirubin Negative (Negative) Urine Urobilinogen 3 mg/dL (Negative) H Urine Leukocyte Esterase Negative /uL (Negative) Urine RBC 1 /hpf (0 - 3) Urine Microscopic WBC 6 /HPF (0-3) H Urine Squamous Epithelial Cells None seen /hpf (<5) Urine Bacteria None seen /hpf (None Seen) Urine Mucus Few (None Seen) Urine Glucose 1+ mg/dL (Normal) H Microbiology Microbiology Date/Time Source Procedure Growth Status 11/15/24 13:15 Aspirate Gram Stain - Final Complete 11/15/24 13:15 Body Fluid Culture - Final Escherichia coli Complete 11/13/24 12:10 Voided Urine Urine Culture - Final Complete 11/12/24 00:25 Nose MRSA Screen - Final Complete 11/11/24 20:15 Blood Blood Culture - Final NO GROWTH AFTER 5 DAYS OF INCUBATION. Complete Assessment/Plan Assessment/Plan New DVT and right upper extremity Tachycardia rule out PE Perforated diverticulitis/diverticular abscess status post percutaneous drainage UTI Hyperglycemia Morbid obesity Hypokalemia Hyponatremia Plan: Start Eliquis. We will obtain chest CTA to rule out PE. Repeat labs. Continue antibiotics Plan discussed with: Patient, Other (Nursing) My Orders Orders - HERNANDEZ DAVE MD Procedure Category Date Status Time Blood Culture GEORGETTE 11/18/24 In Process 09:24 Complete Blood Count LAB 11/19/24 Verified 06:00 Erythrocyte LAB 11/19/24 Verified Sedimentation Rate 05:00 Urine Bacterial GEORGETTE 11/18/24 In Process Culture 09:27 Apixaban (Eliquis) PHA 11/18/24 In Process 22:00 Apixaban (Eliquis) PHA 11/25/24 In Process 22:[address] 11/18/24 Logged Contrast 15:11 Date of Service: Nov 18, 2024 Billing Provider: HERNANDEZ DAVE MD Common Visit Codes: [id number] INP/OBS CARE(HIGH) HERNANDEZ DAVE MD Nov 18, 2024 15:15
--- NOTE | 2024-11-18 17:52 | DVH ---
EXAM: CT CT ANGIO CHEST CONTRAST History: ro pe Comparison Study: None TECHNIQUE: A digital associate drafter image was obtained. During the uneventful, intravenous administration of c ontrast material, multislice data acquisition was obtained through the chest. 3-D postprocessing is performed by technologist including MIP imaging Radiation Dose : CTDI vol 29.2 mGy, DLP 1184.68 mGy*cm. Findings: Lungs: The lungs are clear. Pleura: Unremarkable Heart/Great vessels: No cardiomegaly . Small pericardial effusion. No pulmonary embolism, aneurysm, or dissection. Mediastinum: Unremarkable Soft tissues/Bones: Unremarkable The partially visualized upper abdomen is within normal limits. Impression: 1. No evidence of a pulmonary embolism, aneurysm, or dissection. 2. Small pericardial effusion.
[2024-11-18] MEDS: VANCOMYCIN 1.5GM/300ML 300 ML IV SCH (20:54)
[2024-11-18] MEDS: APIXABAN 5 MG TAB PO SCH (21:41)
[2024-11-18] MEDS ORDERED: TPN PER PHARMACY IV NR (22:00)
[2024-11-19 01:00] VITALS: BP 136/86; PULSE 108; RESP 18; TEMP 97.8; O2SAT 96
[2024-11-19 05:00] VITALS: BP 138/86; PULSE 101; RESP 18; TEMP 97.7; O2SAT 98
[2024-11-19] MEDS: MIDAZOLAM HCL 2MG/2ML 2ml VIAL (1mg/ml) IV ONE (07:44)
[2024-11-19] MEDS: LIDOCAINE 2% (LOCAL ANESTH.) PF 5ml SDV ONE (07:44)
[2024-11-19] MEDS: fentaNYL CITRATE 100 MCG/2 ML VL IV ONE (07:44)
[2024-11-19] MEDS: IOHEXOL 350 MG/ML 100ML IJ ONE (07:45)
[2024-11-19 07:49] LABS: Hematocrit 38.6 % (41.0-53.0); Hemoglobin 13.2 g/dL (13.5-17.5); Mean Corpuscular Hemoglobin 28.5 pg (28.0-32.0); Mean Corpuscular Volume 83.2 fL (80.0-100.0); Nucleated Red Blood Cells % 0.0 %
[2024-11-19 08:09] LABS: Alkaline Phosphatase 90 U/L (46-116); Anion Gap 9 (5-15); BUN/Creatinine Ratio 8.5 (10.0-20.0); Calcium 8.7 mg/dL (8.7-10.4); Carbon Dioxide 21 mmol/L (20-31); Chloride 102 mmol/L (98-107); Glucose 100 mg/dL (74-106); Potassium 4.2 mmol/L (3.5-5.1)
[2024-11-19 08:10] LABS: Magnesium 2.1 mg/dL (1.6-2.6); Total Protein 6.2 g/dL (5.7-8.2)
[2024-11-19 08:11] LABS: Albumin 3.4 g/dL (3.2-4.8); Bilirubin, Total 0.8 mg/dL (0.2-1.0)
[2024-11-19 08:14] LABS: Alanine Aminotransferase 46 U/L (7-40); Blood Urea Nitrogen 5 mg/dL (9-23); Sodium 132 mmol/L (136-145)
[2024-11-19 09:00] VITALS: BP 139/83; PULSE 111; RESP 19; TEMP 97.5; O2SAT 97
--- NOTE | 2024-11-19 12:10 | DVHPN2 ---
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) Changes from previous H/P or p: No Changes General: Per HPI Objective Vitals Vital Signs Date Time Temp Pulse Resp B/P (MAP) Pulse Ox O2 Delivery O2 Flow Rate FiO2 11/19/24 09:00 97.5 111 19 139/83 (101) 97 97.5 11/18/24 20:00 Room Air* 0 21 Intake/Output Intake and Output 11/19/24 07:00 Intake Total 2259 ml Output Total 820 ml Balance 1439 ml Intake Oral 1794 ml IV Total 465 ml Output Urine Total 800 ml Gastric Drainage Total 20 ml # Voids 3 # Bowel Movements 1 General Appearance: Alert, Oriented X3, Cooperative, No acute distress HEENT: Atraumatic, PERRLA Lungs: Clear to auscultation Cardiovascular: Regular rate Abdomen: Normal bowel sounds Neuro: Normal gait, Normal speech Psych/Mental Status: Mental status NL, Mood NL Medications Current Medications Medications Dose Ordered Sig/Edis Route Start Time Stop Time Status Last Admin Dose Admin Acetaminophen 650 mg Q6HPRN PRN PO 11/11/24 23:45 Piperacillin Sod/ Tazobactam Sod 100 ml @ 25 mls/hr Q8HR IV 11/12/24 06:00 UNV Ondansetron HCl 4 mg Q4HPRN PRN IV 11/12/24 07:45 11/12/24 16:33 4 MG Pantoprazole Sodium 40 mg DAILY IV 11/13/24 10:00 11/19/24 09:35 40 MG Morphine Sulfate 2 mg Q4HPRN PRN IV 11/12/24 16:45 11/19/24 01:58 2 MG Vancomycin HCl 300 ml @ 200 mls/hr Q12H IV 11/13/24 15:00 UNV Dextrose 50 ml UD IV 11/15/24 12:00 Sodium Chloride 10 ml QSHIFT@10,22 IV 11/15/24 22:00 11/18/24 21:41 10 ML Diagnostic Test (Pha) 1 strip Q6HR 11/15/24 18:00 11/19/24 12:00 1 STRIP Insulin Human Regular FOLLOW SLIDING SCALE Q6HR SC 11/15/24 18:00 11/18/24 12:45 2 UNITS Hydralazine HCl 10 mg Q6HP PRN IV 11/16/24 15:45 11/16/24 16:13 10 MG Piperacillin Sod/ Tazobactam Sod 100 ml @ 25 mls/hr Q6H IV 11/18/24 01:00 11/19/24 09:35 25 MLS/HR Fat Emulsion Intravenous 200 ml/Sodium Chloride 80 meq/ Sodium Acetate 40 meq/Potassium Chloride 40 meq/ Potassium Phosphate 22 meq/ Calcium Gluconate 2.3 meq/Magnesium Sulfate 8 meq/ Multivitamins 10 ml/Chromium/ Copper/Manganese/ Zinc 1 ml/Amino Acids/Dextrose 1,582.9462 ml @ 66 mls/hr Q24H IV 11/18/24 22:00 11/19/24 21:59 Cancel Apixaban 10 mg BID PO 11/18/24 22:00 11/25/24 09:59 11/19/24 09:35 10 MG Apixaban 5 mg BID PO 11/25/24 22:00 Laboratory Results Laboratory Tests 11/19/24 06:15 Chemistry Test 11/19/24 06:15 Albumin 3.4 g/dL (3.2-4.8) Calcium Level 8.7 mg/dL (8.7-10.4) Magnesium Level 2.1 mg/dL (1.6-2.6) Phosphorus Level 3.1 mg/dL (2.4-5.1) Total Protein 6.2 g/dL (5.7-8.2) LFT Test 11/19/24 06:15 Alanine Aminotransferase (ALT) 46 U/L (7-40) H Alkaline Phosphatase 90 U/L (46-116) Aspartate Amino Transferase (AST) 35 U/L (13-40) Total Bilirubin 0.8 mg/dL (0.2-1.0) Urinalysis Test 11/11/24 20:50 Urine Color Yellow (Yellow) Urine Clarity Clear (Clear) Urine pH 6.0 (5.0-9.0) Urine Specific [place] 1.021 (1.001-1.035) Urine Protein 1+ (Negative) H Urine Ketones Negative (Negative) Urine Blood 2+ /uL (Negative) H Urine Nitrite Negative (Negative) Urine Bilirubin Negative (Negative) Urine Urobilinogen 3 mg/dL (Negative) H Urine Leukocyte Esterase Negative /uL (Negative) Urine RBC 1 /hpf (0 - 3) Urine Microscopic WBC 6 /HPF (0-3) H Urine Squamous Epithelial Cells None seen /hpf (<5) Urine Bacteria None seen /hpf (None Seen) Urine Mucus Few (None Seen) Urine Glucose 1+ mg/dL (Normal) H Microbiology Microbiology Date/Time Source Procedure Growth Status 11/18/24 10:20 Voided Urine Urine Culture - Preliminary Resulted 11/18/24 09:45 Blood Blood Culture - Preliminary NO GROWTH AFTER 24 HOURS OF INCUBATION. Resulted 11/15/24 13:15 Aspirate Gram Stain - Final Complete 11/15/24 13:15 Body Fluid Culture - Final Escherichia coli Complete 11/12/24 00:25 Nose MRSA Screen - Final Complete Labs and/or images reviewed: Labs reviewed by me, Image(s) reviewed by me Assessment/Plan Assessment/Plan Impression: -severe sepsis secondary to perforated diverticulitis -obesity -hypokalemia -hyponatremia -right upper extremity DVT Plan: Events: Patient tolerating diet. Reports constipation. Minimal drainage from IR drain. Clinically improving. White blood cell count continues to climb. Abscess positive for E coli. -deescalate antibiotics. Continue Zosyn, stop vancomycin -bowel regimen -PPI -potassium replacement -pain management -repeat labs in a.m. Total time spent with patient discussing and formulating plan of care: 35 minutes. This medical document was created using an electronic medical record system with [employer] dictation system. Although this document has been carefully reviewed, there may still be some phonetic and typographical errors. These areas are purely typographical due to imperfections of the software programs, and do not reflect any compromise in the patient's medical care. Plan discussed with: Patient, Other (RN) My Orders Orders - SANDRA GOODMAN NP Procedure Category Date Status Time Docusate Sodium PHA 11/19/24 Verified Capsule (Colace 22:00 Melatonin (Melatonin) PHA 11/19/24 Verified 22:00 Basic Metabolic Panel LAB 11/20/24 Verified 04:00 Complete Blood Count LAB 11/20/24 Verified 04:00 Date of Service: Nov 19, 2024 Billing Provider: SANDRA GOODMAN NP Common Visit Codes: [id number] INP/OBS CARE(HIGH) SANDRA GOODMAN NP Nov 19, 2024 12:10
[2024-11-19 13:00] VITALS: BP 122/78; PULSE 108; RESP 19; TEMP 98.1; O2SAT 99
--- NOTE | 2024-11-19 13:09 | DVHPN2 ---
Progress Note Date Seen: Nov 19, 2024 Medical Necessity Reason Pt with a Central, PICC or Fol: No Objective vital signs Vital Sign Date Time Temp Pulse Resp B/P (MAP) Pulse Ox O2 Delivery O2 Flow Rate FiO2 11/19/24 09:00 97.5 111 19 139/83 (101) 97 97.5 11/19/24 08:00 Room Air* 0 21 Total Intake and Output 11/18/24 11/18/24 11/19/24 15:00 23:00 07:00 Intake Total 444 ml 1215 ml 600 ml Output Total 400 ml 420 ml Balance 444 ml 815 ml 180 ml medications Current Medications Medications Dose Ordered Sig/Edis Route Start Time Stop Time Status Last Admin Dose Admin Acetaminophen 650 mg Q6HPRN PRN PO 11/11/24 23:45 Piperacillin Sod/ Tazobactam Sod 100 ml @ 25 mls/hr Q8HR IV 11/12/24 06:00 UNV Ondansetron HCl 4 mg Q4HPRN PRN IV 11/12/24 07:45 11/12/24 16:33 4 MG Pantoprazole Sodium 40 mg DAILY IV 11/13/24 10:00 11/19/24 09:35 40 MG Morphine Sulfate 2 mg Q4HPRN PRN IV 11/12/24 16:45 11/19/24 01:58 2 MG Vancomycin HCl 300 ml @ 200 mls/hr Q12H IV 11/13/24 15:00 UNV Dextrose 50 ml UD IV 11/15/24 12:00 Sodium Chloride 10 ml QSHIFT@10,22 IV 11/15/24 22:00 11/18/24 21:41 10 ML Diagnostic Test (Pha) 1 strip Q6HR 11/15/24 18:00 11/19/24 12:00 1 STRIP Insulin Human Regular FOLLOW SLIDING SCALE Q6HR SC 11/15/24 18:00 11/18/24 12:45 2 UNITS Hydralazine HCl 10 mg Q6HP PRN IV 11/16/24 15:45 11/16/24 16:13 10 MG Piperacillin Sod/ Tazobactam Sod 100 ml @ 25 mls/hr Q6H IV 11/18/24 01:00 11/19/24 09:35 25 MLS/HR Fat Emulsion Intravenous 200 ml/Sodium Chloride 80 meq/ Sodium Acetate 40 meq/Potassium Chloride 40 meq/ Potassium Phosphate 22 meq/ Calcium Gluconate 2.3 meq/Magnesium Sulfate 8 meq/ Multivitamins 10 ml/Chromium/ Copper/Manganese/ Zinc 1 ml/Amino Acids/Dextrose 1,582.9462 ml @ 66 mls/hr Q24H IV 11/18/24 22:00 11/19/24 21:59 Cancel Apixaban 10 mg BID PO 11/18/24 22:00 11/25/24 09:59 11/19/24 09:35 10 MG Apixaban 5 mg BID PO 11/25/24 22:00 Docusate Sodium 100 mg BID PO 11/19/24 22:00 Melatonin 10 mg HS PO 11/19/24 22:00 laboratory and microbiology Laboratory Tests 11/19/24 06:15 Test 11/19/24 06:15 Range/Units Serum Glucose 100 74-106 mg/dL Problem List/Assessment/Plan Problem List/Assessment/Plan 11/13/24feels well, abdomen non tender, ;leukocytosis, continue, as is, repeat CT scan in 48 hours 11/15/24 UNDERWENT PERCUTANEOUS DRAINAGE OF PERICOLONIC ABSCESS, ABDOMEN NON DISTENDED, NON TENDER. WILL FOLLOW 11/16/24 feels well, hungry, abdomen non tyender, derainage purulent, will irrigate, allow po intake 11/19/24 NO ABDOMINAL PAIN, NO NAUSEA, ABDOMEN NON TENDER, PICC LINE WAS REMOVED ,WILL CHECK CBC IN AM Plan discussed with: Patient Dietary Evaluation Review Comments: To meet at least 75% ofpt's needs, recommend TPN kcal to be increased to 1500-2000kcal range and protein to be increased to 80-90g/d. Expected Outcomes/Goals: Pt will experience a gradual wt loss at this kcal level, yet, the appropriated nutrition support of protein and kcal can enhance pt's GI perforation healing process, and help him regain normal GI functionality DANA CHOW MD Nov 19, 2024 13:09
[2024-11-19 17:00] VITALS: BP 115/75; PULSE 114; RESP 19; TEMP 98.2; O2SAT 96
--- NOTE | 2024-11-19 17:47 | DVHPN2 ---
Progress Note - Dictate Date Seen: Nov 19, 2024 Medical Necessity Reason Pt with a Central, PICC or Fol: No Subjective No new complaints;Tolerating soft diet IR placed percutaneous drainage tube at this time is only draining some air and less than 5 mL purulent material Patient states he feels better and denies any nausea vomiting or abdominal pain He has not had any prior colonoscopy leukocytosis persists vital signs Vital Sign Date Time Temp Pulse Resp B/P (MAP) Pulse Ox O2 Delivery O2 Flow Rate FiO2 11/19/24 17:00 98.2 114 19 115/75 (88) 96 98.2 11/19/24 08:00 Room Air* 0 21 Total Intake and Output 11/18/24 11/18/24 11/19/24 14:59 22:59 06:59 Intake Total 444 ml 1215 ml 600 ml Output Total 400 ml 420 ml Balance 444 ml 815 ml 180 ml medications Current Medications Medications Dose Ordered Sig/Edis Route Start Time Stop Time Status Last Admin Dose Admin Acetaminophen 650 mg Q6HPRN PRN PO 11/11/24 23:45 Piperacillin Sod/ Tazobactam Sod 100 ml @ 25 mls/hr Q8HR IV 11/12/24 06:00 UNV Ondansetron HCl 4 mg Q4HPRN PRN IV 11/12/24 07:45 11/12/24 16:33 4 MG Pantoprazole Sodium 40 mg DAILY IV 11/13/24 10:00 11/19/24 09:35 40 MG Morphine Sulfate 2 mg Q4HPRN PRN IV 11/12/24 16:45 11/19/24 01:58 2 MG Vancomycin HCl 300 ml @ 200 mls/hr Q12H IV 11/13/24 15:00 UNV Dextrose 50 ml UD IV 11/15/24 12:00 Sodium Chloride 10 ml QSHIFT@10,22 IV 11/15/24 22:00 11/18/24 21:41 10 ML Diagnostic Test (Pha) 1 strip Q6HR 11/15/24 18:00 11/19/24 12:00 1 STRIP Insulin Human Regular FOLLOW SLIDING SCALE Q6HR SC 11/15/24 18:00 11/18/24 12:45 2 UNITS Hydralazine HCl 10 mg Q6HP PRN IV 11/16/24 15:45 11/16/24 16:13 10 MG Piperacillin Sod/ Tazobactam Sod 100 ml @ 25 mls/hr Q6H IV 11/18/24 01:00 11/19/24 14:00 25 MLS/HR Fat Emulsion Intravenous 200 ml/Sodium Chloride 80 meq/ Sodium Acetate 40 meq/Potassium Chloride 40 meq/ Potassium Phosphate 22 meq/ Calcium Gluconate 2.3 meq/Magnesium Sulfate 8 meq/ Multivitamins 10 ml/Chromium/ Copper/Manganese/ Zinc 1 ml/Amino Acids/Dextrose 1,582.9462 ml @ 66 mls/hr Q24H IV 11/18/24 22:00 11/19/24 21:59 Cancel Apixaban 10 mg BID PO 11/18/24 22:00 11/25/24 09:59 11/19/24 09:35 10 MG Apixaban 5 mg BID PO 11/25/24 22:00 Docusate Sodium 100 mg BID PO 11/19/24 22:00 Melatonin 10 mg HS PO 11/19/24 22:00 objective General Appearance: Alert, Oriented X3, Cooperative, No acute distress HEENT: Atraumatic, PERRLA Lungs: Clear to auscultation Cardiovascular: Regular rate Abdomen: Normal bowel sounds; drainage tube in place Musculoskeletal: Normal sensory function, Normal motor function Neuro: Cranial nerves 3-12 NL Skin: Dry, Intact Psych/Mental Status: Mental status NL, Mood NL laboratory and microbiology Laboratory Tests 11/19/24 06:15 Test 11/19/24 06:15 Range/Units Serum Glucose 100 74-106 mg/dL Problems(with codes): (1) Abscess of sigmoid colon due to diverticulitis (2) Testicular pain (3) Leukocytosis Prognosis Plan Surgical follow up appreciated Check CBC tomorrow If there is persistent or worsening leukocytosis then consider repeat CT scan Continue IV antibiotics for E coli growth in the abscess fluid, antibiotic deescalated Outpt f/u with me in 6-8 weeks Dietary Evaluation Review Comments: To meet at least 75% ofpt's needs, recommend TPN kcal to be increased to 1500-2000kcal range and protein to be increased to 80-90g/d. Expected Outcomes/Goals: Pt will experience a gradual wt loss at this kcal level, yet, the appropriated nutrition support of protein and kcal can enhance pt's GI perforation healing process, and help him regain normal GI functionality Plan discussed with: Patient DAVONTE BILLY MD Nov 19, 2024 17:47
[2024-11-19] MEDS: ACETAMINOPHEN 325 MG TAB PO PRN (18:59)
[2024-11-19 21:00] VITALS: BP 119/66; PULSE 119; RESP 20; TEMP 100.1; O2SAT 94
[2024-11-19] MEDS: DOCUSATE SOD 100 MG CAP PO SCH (21:53)
[2024-11-19] MEDS: MELATONIN 5 MG TAB PO SCH (21:53)
[2024-11-20 01:00] VITALS: BP 145/84; PULSE 107; RESP 18; TEMP 98.3; O2SAT 95
[2024-11-20 05:00] VITALS: BP 124/73; PULSE 100; RESP 17; TEMP 98.4; O2SAT 95
[2024-11-20 06:47] LABS: Chloride 99 mmol/L (98-107); Potassium 4.0 mmol/L (3.5-5.1)
[2024-11-20 06:48] LABS: Anion Gap 9 (5-15); Carbon Dioxide 23 mmol/L (20-31)
[2024-11-20 06:51] LABS: Calcium 8.7 mg/dL (8.7-10.4); Sodium 131 mmol/L (136-145)
[2024-11-20 06:53] LABS: BUN/Creatinine Ratio 11.4 (10.0-20.0); Hematocrit 39.8 % (41.0-53.0); Hemoglobin 13.3 g/dL (13.5-17.5); Mean Corpuscular Hemoglobin 28.0 pg (28.0-32.0); Mean Corpuscular Volume 83.9 fL (80.0-100.0); Nucleated Red Blood Cells % 0.0 %
[2024-11-20 07:02] LABS: Blood Urea Nitrogen 8 mg/dL (9-23); Glucose 121 mg/dL (74-106)
[2024-11-20 09:00] VITALS: BP 113/81; PULSE 109; RESP 19; TEMP 98.3; O2SAT 96
--- NOTE | 2024-11-20 11:27 | DVH ---
Indication: reassess diverticular perforation and abscess Technique: CT axial images of the abdomen and pelvis are obtained without contrast. Coronal and sagit magnolia reformats were obtained. Radiation Dose Information: CTDI volume is 25.22 mGy. Dose-length product is 1588.99 mGy*cm Comparison: 11/14/2024 FINDINGS: There is limited interpretation of the abdomen and pelvis without administration of intravenous contr ast. Examination degraded by motion. The osseous structures are stable. Lung bases demonstrate bibasilar atelectasis. Adrenal glands, spleen, pancreas and liver unremarkable in shape. No CT evidence for cholelithiasis. The kidneys demonstrate no hydronephrosis, nephrolithiasis. Stomach is partially distended. Small bowel loops normal in caliber. Interval placement of lower abdominal pigtail drainage catheter within the previously distal describe d collection. There is still a collection measuring 5.2 x 4.1 cm surrounding the catheter, overall po genesis characterized secondary to the extensive motion artifact. Moderate volume stool in the colon. Colonic diverticula. There is extensive perirectal /perisigmoid c olon and presacral region soft tissue /Complex fluid collections measuring 3.6 cm, 2.6 cm, 3.1 cm, 5. 9 x 3.6 cm. No inguinal lymphadenopathy. IMPRESSION: Limited evaluation without IV contrast. Examination also severely degraded by motion. 1. Interval placement of lower anterior abdominal drainage catheter with residual collection measurin g 5.2 x 4.1 cm. 2. Interval development Of extensive soft tissue lesions /complex collections in the perirectal and presacral region as described above. This could represent lymphadenopathy, developing collections /ab scesses/phlegmon, other infectious / inflammatory etiologies. Recommend CT abdomen pelvis with contr ast to better characterize and surgical consultation. These measure up to 5.9 cm. 3. Other findings as described.
[2024-11-20] MEDS ORDERED: CLINIMIX PER PHARMACY 0 ML IV SCH (11:45)
--- NOTE | 2024-11-20 11:49 | DVHPN2 ---
Progress Note Date Seen: Nov 20, 2024 Medical Necessity Reason Pt with a Central, PICC or Fol: No Objective vital signs Vital Sign Date Time Temp Pulse Resp B/P (MAP) Pulse Ox O2 Delivery O2 Flow Rate FiO2 11/20/24 09:00 98.3 109 19 113/81 (92) 96 98.3 11/19/24 20:00 Room Air* 0 21 Total Intake and Output 11/19/24 11/19/24 11/20/24 15:00 23:00 07:00 Intake Total 100 ml 850 ml 1000 ml Output Total 975 ml 1130 ml Balance 100 ml -125 ml -130 ml medications Current Medications Medications Dose Ordered Sig/Edis Route Start Time Stop Time Status Last Admin Dose Admin Acetaminophen 650 mg Q6HPRN PRN PO 11/11/24 23:45 11/19/24 18:59 650 MG Piperacillin Sod/ Tazobactam Sod 100 ml @ 25 mls/hr Q8HR IV 11/12/24 06:00 UNV Ondansetron HCl 4 mg Q4HPRN PRN IV 11/12/24 07:45 11/12/24 16:33 4 MG Pantoprazole Sodium 40 mg DAILY IV 11/13/24 10:00 11/20/24 10:13 40 MG Morphine Sulfate 2 mg Q4HPRN PRN IV 11/12/24 16:45 11/19/24 01:58 2 MG Vancomycin HCl 300 ml @ 200 mls/hr Q12H IV 11/13/24 15:00 UNV Dextrose 50 ml UD IV 11/15/24 12:00 Sodium Chloride 10 ml QSHIFT@10,22 IV 11/15/24 22:00 11/19/24 21:54 10 ML Diagnostic Test (Pha) 1 strip Q6HR 11/15/24 18:00 11/19/24 17:36 1 STRIP Insulin Human Regular FOLLOW SLIDING SCALE Q6HR SC 11/15/24 18:00 11/18/24 12:45 2 UNITS Hydralazine HCl 10 mg Q6HP PRN IV 11/16/24 15:45 11/16/24 16:13 10 MG Piperacillin Sod/ Tazobactam Sod 100 ml @ 25 mls/hr Q6H IV 11/18/24 01:00 11/20/24 06:30 25 MLS/HR Fat Emulsion Intravenous 200 ml/Sodium Chloride 80 meq/ Sodium Acetate 40 meq/Potassium Chloride 40 meq/ Potassium Phosphate 22 meq/ Calcium Gluconate 2.3 meq/Magnesium Sulfate 8 meq/ Multivitamins 10 ml/Chromium/ Copper/Manganese/ Zinc 1 ml/Amino Acids/Dextrose 1,582.9462 ml @ 66 mls/hr Q24H IV 11/18/24 22:00 11/19/24 21:59 Cancel Docusate Sodium 100 mg BID PO 11/19/24 22:00 11/20/24 10:13 100 MG Melatonin 10 mg HS PO 11/19/24 22:00 11/19/24 21:53 10 MG Enoxaparin Sodium 120 mg Q12HR SC 11/20/24 22:00 UNV Sodium Chloride 1,000 ml @ 100 mls/hr Q10H IV 11/20/24 11:30 UNV Amino Acids 0 ml @ 0 mls/hr PER PHARMACY IV 11/20/24 11:45 UNV laboratory and microbiology Laboratory Tests 11/20/24 06:07 Test 11/20/24 06:07 Range/Units Serum Glucose 121 H 74-106 mg/dL Problem List/Assessment/Plan Problem List/Assessment/Plan 11/13/24feels well, abdomen non tender, ;leukocytosis, continue, as is, repeat CT scan in 48 hours 11/15/24 UNDERWENT PERCUTANEOUS DRAINAGE OF PERICOLONIC ABSCESS, ABDOMEN NON DISTENDED, NON TENDER. WILL FOLLOW 11/16/24 feels well, hungry, abdomen non tyender, derainage purulent, will irrigate, allow po intake 11/19/24 NO ABDOMINAL PAIN, NO NAUSEA, ABDOMEN NON TENDER, PICC LINE WAS REMOVED ,WILL CHECK CBC IN AM 11/20/24 await CBC tomorrow to decide on next step, abdomen non ternder but no BM, he feels "backed Up" will get gastrografin bowel x ray. Plan discussed with: Patient Dietary Evaluation Review Comments: To meet at least 75% ofpt's needs, recommend TPN kcal to be increased to 1500-2000kcal range and protein to be increased to 80-90g/d. Expected Outcomes/Goals: Pt will experience a gradual wt loss at this kcal level, yet, the appropriated nutrition support of protein and kcal can enhance pt's GI perforation healing process, and help him regain normal GI functionality DANA CHOW MD Nov 20, 2024 11:49
[2024-11-20] MEDS: SODIUM CHLORIDE 0.9% 1,000 ML IV SCH (12:20)
--- NOTE | 2024-11-20 12:39 | DVHPN2 ---
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) Changes from previous H/P or p: No Changes General: Per HPI Objective Vitals Vital Signs Date Time Temp Pulse Resp B/P (MAP) Pulse Ox O2 Delivery O2 Flow Rate FiO2 11/20/24 09:00 98.3 109 19 113/81 (92) 96 98.3 11/19/24 20:00 Room Air* 0 21 Intake/Output Intake and Output 11/20/24 07:00 Intake Total 1950 ml Output Total 2105 ml Balance -155 ml Intake Oral 1750 ml IV Total 200 ml Output Urine Total 2105 ml General Appearance: Alert, Oriented X3, Cooperative, No acute distress HEENT: Atraumatic, PERRLA Lungs: Clear to auscultation Cardiovascular: Normal S1, Normal S2, Other (Sinus tachycardia) Abdomen: Normal bowel sounds Neuro: Normal gait, Normal speech Skin: Dry, Intact Psych/Mental Status: Mental status NL, Mood NL Medications Current Medications Medications Dose Ordered Sig/Edis Route Start Time Stop Time Status Last Admin Dose Admin Acetaminophen 650 mg Q6HPRN PRN PO 11/11/24 23:45 11/19/24 18:59 650 MG Piperacillin Sod/ Tazobactam Sod 100 ml @ 25 mls/hr Q8HR IV 11/12/24 06:00 UNV Ondansetron HCl 4 mg Q4HPRN PRN IV 11/12/24 07:45 11/12/24 16:33 4 MG Pantoprazole Sodium 40 mg DAILY IV 11/13/24 10:00 11/20/24 10:13 40 MG Morphine Sulfate 2 mg Q4HPRN PRN IV 11/12/24 16:45 11/19/24 01:58 2 MG Vancomycin HCl 300 ml @ 200 mls/hr Q12H IV 11/13/24 15:00 UNV Dextrose 50 ml UD IV 11/15/24 12:00 Sodium Chloride 10 ml QSHIFT@10,22 IV 11/15/24 22:00 11/19/24 21:54 10 ML Diagnostic Test (Pha) 1 strip Q6HR 11/15/24 18:00 11/19/24 17:36 1 STRIP Insulin Human Regular FOLLOW SLIDING SCALE Q6HR SC 11/15/24 18:00 11/18/24 12:45 2 UNITS Hydralazine HCl 10 mg Q6HP PRN IV 11/16/24 15:45 11/16/24 16:13 10 MG Piperacillin Sod/ Tazobactam Sod 100 ml @ 25 mls/hr Q6H IV 11/18/24 01:00 11/20/24 12:20 25 MLS/HR Fat Emulsion Intravenous 200 ml/Sodium Chloride 80 meq/ Sodium Acetate 40 meq/Potassium Chloride 40 meq/ Potassium Phosphate 22 meq/ Calcium Gluconate 2.3 meq/Magnesium Sulfate 8 meq/ Multivitamins 10 ml/Chromium/ Copper/Manganese/ Zinc 1 ml/Amino Acids/Dextrose 1,582.9462 ml @ 66 mls/hr Q24H IV 11/18/24 22:00 11/19/24 21:59 Cancel Docusate Sodium 100 mg BID PO 11/19/24 22:00 11/20/24 10:13 100 MG Melatonin 10 mg HS PO 11/19/24 22:00 11/19/24 21:53 10 MG Enoxaparin Sodium 120 mg Q12HR SC 11/20/24 22:00 UNV Sodium Chloride 1,000 ml @ 100 mls/hr Q10H IV 11/20/24 11:30 UNV Amino Acids 0 ml @ 0 mls/hr PER PHARMACY IV 11/20/24 11:45 UNV Laboratory Results Laboratory Tests 11/20/24 06:07 Chemistry Test 11/20/24 06:07 Calcium Level 8.7 mg/dL (8.7-10.4) Urinalysis Test 11/11/24 20:50 Urine Color Yellow (Yellow) Urine Clarity Clear (Clear) Urine pH 6.0 (5.0-9.0) Urine Specific [place] 1.021 (1.001-1.035) Urine Protein 1+ (Negative) H Urine Ketones Negative (Negative) Urine Blood 2+ /uL (Negative) H Urine Nitrite Negative (Negative) Urine Bilirubin Negative (Negative) Urine Urobilinogen 3 mg/dL (Negative) H Urine Leukocyte Esterase Negative /uL (Negative) Urine RBC 1 /hpf (0 - 3) Urine Microscopic WBC 6 /HPF (0-3) H Urine Squamous Epithelial Cells None seen /hpf (<5) Urine Bacteria None seen /hpf (None Seen) Urine Mucus Few (None Seen) Urine Glucose 1+ mg/dL (Normal) H Microbiology Microbiology Date/Time Source Procedure Growth Status 11/18/24 22:00 Catheter Site Aerobic Culture - Preliminary Resulted 11/18/24 10:20 Voided Urine Urine Culture - Preliminary Resulted 11/18/24 09:45 Blood Blood Culture - Preliminary NO GROWTH AFTER 48 HOURS OF INCUBATION. Resulted 11/15/24 13:15 Aspirate Gram Stain - Final Complete 11/15/24 13:15 Body Fluid Culture - Final Escherichia coli Complete Labs and/or images reviewed: Labs reviewed by me, Image(s) reviewed by me Assessment/Plan Assessment/Plan Impression: -severe sepsis secondary to perforated diverticulitis -obesity -hypokalemia -hyponatremia -right upper extremity DVT Plan: Events: Patient was placed on mechanical soft diet over the weekend. Patient was also found to have DVT in upper extremity for which she was placed on Eliquis. Patient has persistent tachycardia, elevation white blood cell count, and intermittent fevers. Repeat CT scan was performed today with findings of multiple areas of abscess. Eliquis will be stopped. Lovenox therapeutic dose will be started. Long discussion was made with the patient regarding findings. He will be made NPO status. Clinimix and IV fluids we will be initiated. Re- consultation with surgery we will be placed. -continue current antibiotics -reconsult surgery -bowel regimen -PPI -normal saline, Clinimix -pain management -repeat labs in a.m. Total time spent with patient discussing and formulating plan of care: 35 minutes. This medical document was created using an electronic medical record system with [employer] dictation system. Although this document has been carefully reviewed, there may still be some phonetic and typographical errors. These areas are purely typographical due to imperfections of the software programs, and do not reflect any compromise in the patient's medical care. Plan discussed with: Patient, Other (RN) My Orders Orders - SANDRA GOODMAN [employer] Procedure Category Date Status Time Ct Ab Pel Wo Con-No CT 11/20/24 Resulted Oral Or Iv 08:21 Enoxaparin Sodium PHA 11/20/24 Logged (Lovenox) 22:00 Sodium Chloride 0.9% PHA 11/20/24 Logged 11:30 Clinimix Per Pharmacy PHA 11/20/24 Logged 11:45 Date of Service: Nov 20, 2024 Billing Provider: SANDRA GOODMAN NP Common Visit Codes: [id number] INP/OBS CARE(HIGH) SANDRA GOODMAN NP Nov 20, 2024 12:39
[2024-11-20 13:00] VITALS: BP 123/88; PULSE 109; RESP 19; TEMP 99; O2SAT 95
[2024-11-20] MEDS: GASTROGRAFIN 120 ML SOL ONE (13:53)
[2024-11-20] MEDS: ENOXAPARIN SOD 120 MG/0.8 ML SYRINGE SC SCH (15:51)
--- NOTE | 2024-11-20 16:15 | DVH ---
Procedure: XY SMALL BOWEL SERIES-W GASTROGRA Reason for study/Clinical History: r/o obstruction Comparison Study: None Technique: Single contrast small bowel series performed. FINDINGS/IMPRESSION: [employer] KUB demonstrates a borderline distended loop of jejunum in the left upper quadrant. Pigtail cat heter seen overlying the sacrum. Contrast administered and 15 minute film demonstrates contrast in the jejunum. 30 minute film demonst rates contrast in the ileum without obstruction. 45 minute film demonstrates contrast in the ascendin g colon. Impression: No bowel obstruction identified.
[2024-11-20 17:00] VITALS: BP 109/67; PULSE 128; RESP 20; TEMP 99.4; O2SAT 94
--- NOTE | 2024-11-20 17:46 | DVHPN2 ---
Progress Note - Dictate Date Seen: Nov 20, 2024 Medical Necessity Reason Pt with a Central, PICC or Fol: No Subjective No new complaints; Denies N/V or abd painTolerating soft diet Pt was feeling bloated this morning but he has had 2-3 BM's since SBFT Xray WBC down to 19.4 vital signs Vital Sign Date Time Temp Pulse Resp B/P (MAP) Pulse Ox O2 Delivery O2 Flow Rate FiO2 11/20/24 13:00 99.0 109 19 123/88 (100) 95 99.0 11/20/24 08:00 Room Air* 0 21 Total Intake and Output 11/19/24 11/19/24 11/20/24 15:00 23:00 07:00 Intake Total 100 ml 850 ml 1000 ml Output Total 975 ml 1130 ml Balance 100 ml -125 ml -130 ml medications Current Medications Medications Dose Ordered Sig/Edis Route Start Time Stop Time Status Last Admin Dose Admin Acetaminophen 650 mg Q6HPRN PRN PO 11/11/24 23:45 11/19/24 18:59 650 MG Piperacillin Sod/ Tazobactam Sod 100 ml @ 25 mls/hr Q8HR IV 11/12/24 06:00 UNV Ondansetron HCl 4 mg Q4HPRN PRN IV 11/12/24 07:45 11/12/24 16:33 4 MG Pantoprazole Sodium 40 mg DAILY IV 11/13/24 10:00 11/20/24 10:13 40 MG Morphine Sulfate 2 mg Q4HPRN PRN IV 11/12/24 16:45 11/19/24 01:58 2 MG Vancomycin HCl 300 ml @ 200 mls/hr Q12H IV 11/13/24 15:00 UNV Dextrose 50 ml UD IV 11/15/24 12:00 Sodium Chloride 10 ml QSHIFT@10,22 IV 11/15/24 22:00 11/19/24 21:54 10 ML Diagnostic Test (Pha) 1 strip Q6HR 11/15/24 18:00 11/20/24 17:38 1 STRIP Insulin Human Regular FOLLOW SLIDING SCALE Q6HR SC 11/15/24 18:00 11/18/24 12:45 2 UNITS Hydralazine HCl 10 mg Q6HP PRN IV 11/16/24 15:45 11/16/24 16:13 10 MG Piperacillin Sod/ Tazobactam Sod 100 ml @ 25 mls/hr Q6H IV 11/18/24 01:00 11/20/24 12:20 25 MLS/HR Fat Emulsion Intravenous 200 ml/Sodium Chloride 80 meq/ Sodium Acetate 40 meq/Potassium Chloride 40 meq/ Potassium Phosphate 22 meq/ Calcium Gluconate 2.3 meq/Magnesium Sulfate 8 meq/ Multivitamins 10 ml/Chromium/ Copper/Manganese/ Zinc 1 ml/Amino Acids/Dextrose 1,582.9462 ml @ 66 mls/hr Q24H IV 11/18/24 22:00 11/19/24 21:59 Cancel Docusate Sodium 100 mg BID PO 11/19/24 22:00 11/20/24 10:13 100 MG Melatonin 10 mg HS PO 11/19/24 22:00 11/19/24 21:53 10 MG Enoxaparin Sodium 120 mg Q12HR SC 11/20/24 13:12 11/20/24 15:51 120 MG Sodium Chloride 1,000 ml @ 100 mls/hr Q10H IV 11/20/24 11:30 11/20/24 12:20 100 MLS/HR Amino Acids 0 ml @ 0 mls/hr PER PHARMACY IV 11/20/24 11:45 Amino Acids/ Electrolytes/ Dextrose 1,000 ml @ 41 mls/hr DAILY@2200 IV 11/20/24 22:00 objective General Appearance: Alert, Oriented X3, Cooperative, No acute distress HEENT: Atraumatic, PERRLA Lungs: Clear to auscultation Cardiovascular: Regular rate Abdomen: Normal bowel sounds; drainage tube in place Musculoskeletal: Normal sensory function, Normal motor function Neuro: Cranial nerves 3-12 NL Skin: Dry, Intact Psych/Mental Status: Mental status NL, Mood NL laboratory and microbiology Laboratory Tests 11/20/24 06:07 Test 11/20/24 06:07 Range/Units Serum Glucose 121 H 74-106 mg/dL Repeat CT SCAN ABD / PELVIS TODAY IMPRESSION: Limited evaluation without IV contrast. Examination also severely degraded by motion. 1. Interval placement of lower anterior abdominal drainage catheter with residual collection measuring 5.2 x 4.1 cm. 2. Interval development Of extensive soft tissue lesions /complex collections in the perirectal and presacral region as described above. This could represent lymphadenopathy, developing collections /abscesses/phlegmon, other infectious / inflammatory etiologies. Recommend CT abdomen pelvis with contrast to better characterize and surgical consultation. These measure up to 5.9 cm. SBFT X RAY FINDINGS/IMPRESSION: Super[employer] KUB demonstrates a borderline distended loop of jejunum in the left upper quadrant. Pigtail catheter seen overlying the sacrum. Contrast administered and 15 minute film demonstrates contrast in the jejunum. 30 minute film demonstrates contrast in the ileum without obstruction. 45 minute film demonstrates contrast in the ascending colon. Impression: No bowel obstruction identified. Problems(with codes): (1) Abnormal finding on GI tract imaging (2) Abscess of sigmoid colon due to diverticulitis (3) Testicular pain (4) Leukocytosis Prognosis Assessment and plan Patient appears to be clinically stable at the moment despite worsening findings on the CT abdomen suggestive of multiple foci of abscesses and fluid collection Patient is moving his bowels after the small-bowel series Repeat KUB in a.m. ; repeat labs in a.m. Surgical follow up to re-evaluate patient and decide if there is any need for surgical intervention at this time Otherwise I would recommend continued treatment with IV antibiotics; possible NPO status, possible TPN Dietary Evaluation Review Comments: To meet at least 75% ofpt's needs, recommend TPN kcal to be increased to 1500-2000kcal range and protein to be increased to 80-90g/d. Expected Outcomes/Goals: Pt will experience a gradual wt loss at this kcal level, yet, the appropriated nutrition support of protein and kcal can enhance pt's GI perforation healing process, and help him regain normal GI functionality Plan discussed with: Patient, Other (Dr Zacarias) DAVONTE BILLY MD Nov 20, 2024 17:46
[2024-11-20 21:00] VITALS: BP 139/79; PULSE 120; RESP 18; TEMP 98.1; O2SAT 98
[2024-11-20] MEDS: AMINO ACID INFUSION IN D10W 1,000 ML IV SCH (22:04)
[2024-11-21 01:00] VITALS: BP 122/78; PULSE 105; RESP 17; TEMP 98.3; O2SAT 95
[2024-11-21 05:00] VITALS: BP 127/72; PULSE 99; RESP 17; TEMP 98.3; O2SAT 93
[2024-11-21 07:50] LABS: Albumin 3.5 g/dL (3.2-4.8); Alkaline Phosphatase 112 U/L (46-116); Anion Gap 9 (5-15); BUN/Creatinine Ratio 15.5 (10.0-20.0); Blood Urea Nitrogen 11 mg/dL (9-23); Calcium 9.1 mg/dL (8.7-10.4); Carbon Dioxide 24 mmol/L (20-31); Chloride 101 mmol/L (98-107); Magnesium 2.1 mg/dL (1.6-2.6); Potassium 4.0 mmol/L (3.5-5.1); Total Protein 6.1 g/dL (5.7-8.2)
[2024-11-21 07:51] LABS: Alanine Aminotransferase 55 U/L (7-40); Bilirubin, Total 0.8 mg/dL (0.2-1.0); Glucose 120 mg/dL (74-106); Sodium 134 mmol/L (136-145)
[2024-11-21 08:08] LABS: Hematocrit 37.5 % (41.0-53.0); Hemoglobin 12.5 g/dL (13.5-17.5); Mean Corpuscular Hemoglobin 27.8 pg (28.0-32.0); Mean Corpuscular Volume 83.1 fL (80.0-100.0); Nucleated Red Blood Cells % 0.0 %
[2024-11-21 08:50] VITALS: BP 118/76; PULSE 92; RESP 19; TEMP 98.2; O2SAT 94
--- NOTE | 2024-11-21 11:10 | DVHPN2 ---
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 (Remote Medical Coder) Changes from previous H/P or p: No Changes General: Per HPI Objective Vitals Vital Signs Date Time Temp Pulse Resp B/P (MAP) Pulse Ox O2 Delivery O2 Flow Rate FiO2 11/21/24 08:50 98.2 92 19 118/76 (90) 94 98.2 11/20/24 20:00 Room Air* 0 21 Intake/Output Intake and Output 11/21/24 07:00 Intake Total 1600 ml Output Total 454 ml Balance 1146 ml Intake Oral 1400 ml IV Total 200 ml Output Urine Total 450 ml Stool Total 4 ml # Bowel Movements 5 General Appearance: Alert, Oriented X3, Cooperative, No acute distress HEENT: Atraumatic, PERRLA Lungs: Clear to auscultation Cardiovascular: Normal S1, Normal S2, Other (Sinus tachycardia) Abdomen: Normal bowel sounds Neuro: Normal gait, Normal speech Skin: Dry, Intact Psych/Mental Status: Mental status NL, Mood NL Medications Current Medications Medications Dose Ordered Sig/Edis Route Start Time Stop Time Status Last Admin Dose Admin Acetaminophen 650 mg Q6HPRN PRN PO 11/11/24 23:45 11/19/24 18:59 650 MG Piperacillin Sod/ Tazobactam Sod 100 ml @ 25 mls/hr Q8HR IV 11/12/24 06:00 UNV Ondansetron HCl 4 mg Q4HPRN PRN IV 11/12/24 07:45 11/12/24 16:33 4 MG Pantoprazole Sodium 40 mg DAILY IV 11/13/24 10:00 11/21/24 09:35 40 MG Morphine Sulfate 2 mg Q4HPRN PRN IV 11/12/24 16:45 11/20/24 21:49 2 MG Vancomycin HCl 300 ml @ 200 mls/hr Q12H IV 11/13/24 15:00 UNV Dextrose 50 ml UD IV 11/15/24 12:00 Sodium Chloride 10 ml QSHIFT@10,22 IV 11/15/24 22:00 11/21/24 09:36 10 ML Diagnostic Test (Pha) 1 strip Q6HR 11/15/24 18:00 11/21/24 06:02 1 STRIP Insulin Human Regular FOLLOW SLIDING SCALE Q6HR SC 11/15/24 18:00 11/21/24 05:16 2 UNITS Hydralazine HCl 10 mg Q6HP PRN IV 11/16/24 15:45 11/16/24 16:13 10 MG Piperacillin Sod/ Tazobactam Sod 100 ml @ 25 mls/hr Q6H IV 11/18/24 01:00 11/21/24 06:42 25 MLS/HR Fat Emulsion Intravenous 200 ml/Sodium Chloride 80 meq/ Sodium Acetate 40 meq/Potassium Chloride 40 meq/ Potassium Phosphate 22 meq/ Calcium Gluconate 2.3 meq/Magnesium Sulfate 8 meq/ Multivitamins 10 ml/Chromium/ Copper/Manganese/ Zinc 1 ml/Amino Acids/Dextrose 1,582.9462 ml @ 66 mls/hr Q24H IV 11/18/24 22:00 11/19/24 21:59 Cancel Docusate Sodium 100 mg BID PO 11/19/24 22:00 11/21/24 09:35 100 MG Melatonin 10 mg HS PO 11/19/24 22:00 11/20/24 21:49 10 MG Enoxaparin Sodium 120 mg Q12HR SC 11/20/24 13:12 11/21/24 09:36 120 MG Sodium Chloride 1,000 ml @ 100 mls/hr Q10H IV 11/20/24 11:30 11/20/24 12:20 100 MLS/HR Amino Acids 0 ml @ 0 mls/hr PER PHARMACY IV 11/20/24 11:45 Amino Acids/ Electrolytes/ Dextrose 1,000 ml @ 41 mls/hr DAILY@2200 IV 11/20/24 22:00 11/20/24 22:04 41 MLS/HR Laboratory Results Laboratory Tests 11/21/24 06:24 Chemistry Test 11/21/24 06:24 Albumin 3.5 g/dL (3.2-4.8) Calcium Level 9.1 mg/dL (8.7-10.4) Magnesium Level 2.1 mg/dL (1.6-2.6) Phosphorus Level 3.3 mg/dL (2.4-5.1) Total Protein 6.1 g/dL (5.7-8.2) LFT Test 11/21/24 06:24 Alanine Aminotransferase (ALT) 55 U/L (7-40) H Alkaline Phosphatase 112 U/L (46-116) Aspartate Amino Transferase (AST) 30 U/L (13-40) Total Bilirubin 0.8 mg/dL (0.2-1.0) Urinalysis Test 11/11/24 20:50 Urine Color Yellow (Yellow) Urine Clarity Clear (Clear) Urine pH 6.0 (5.0-9.0) Urine Specific [place] 1.021 (1.001-1.035) Urine Protein 1+ (Negative) H Urine Ketones Negative (Negative) Urine Blood 2+ /uL (Negative) H Urine Nitrite Negative (Negative) Urine Bilirubin Negative (Negative) Urine Urobilinogen 3 mg/dL (Negative) H Urine Leukocyte Esterase Negative /uL (Negative) Urine RBC 1 /hpf (0 - 3) Urine Microscopic WBC 6 /HPF (0-3) H Urine Squamous Epithelial Cells None seen /hpf (<5) Urine Bacteria None seen /hpf (None Seen) Urine Mucus Few (None Seen) Urine Glucose 1+ mg/dL (Normal) H Microbiology Microbiology Date/Time Source Procedure Growth Status 11/18/24 22:00 Catheter Site Aerobic Culture - Preliminary Resulted 11/18/24 10:20 Voided Urine Urine Culture - Final Complete 11/18/24 09:45 Blood Blood Culture - Preliminary NO GROWTH AFTER 72 HOURS OF INCUBATION. Resulted 11/15/24 13:15 Aspirate Gram Stain - Final Complete 11/15/24 13:15 Body Fluid Culture - Final Escherichia coli Complete Labs and/or images reviewed: Labs reviewed by me, Image(s) reviewed by me Assessment/Plan Assessment/Plan Impression: -severe sepsis secondary to perforated diverticulitis -obesity -hypokalemia -hyponatremia -right upper extremity DVT Plan: Events: Continue NPO status. Communicated with surgery regarding diverticular perforation with abscess now on multiple areas. Eliquis also stopped yesterday, with patient placed on Lovenox. White blood cell count still is elevated. Intermittent periods of tachycardia and fevers. Discussion made with the patient regarding CT scan findings. -continue Zosyn given positive E coli radiology aspiration -reconsult surgery -bowel regimen -PPI -normal saline, Clinimix -pain management -repeat labs in a.m. Total time spent with patient discussing and formulating plan of care: 35 minutes. This medical document was created using an electronic medical record system with [employer] dictation system. Although this document has been carefully reviewed, there may still be some phonetic and typographical errors. These areas are purely typographical due to imperfections of the software programs, and do not reflect any compromise in the patient's medical care. Plan discussed with: Patient, Other (RN) My Orders Orders - SANDRA GOODMAN NP Procedure Category Date Status Time Enoxaparin Sodium PHA 11/20/24 In Process (Lovenox) 13:12 Sodium Chloride 0.9% PHA 11/20/24 In Process 11:30 Clinimix Per Pharmacy PHA 11/20/24 In Process 11:45 Amino Acid Infusion PHA 11/20/24 In Process In D10w (Clinimix 4. 22:00 Clinimix Per Pharmacy PETE 11/20/24 In Process 22:00 Npo (Nothing By DIET 11/21/24 Transmitted Mouth) Diet Lunch Date of Service: Nov 21, 2024 Billing Provider: SANDRA GOODMAN NP Common Visit Codes: [id number] INP/OBS CARE(HIGH) SANDRA GOODMAN NP Nov 21, 2024 11:10
[2024-11-21 13:00] VITALS: BP 119/82; PULSE 101; RESP 18; TEMP 98; O2SAT 95
--- NOTE | 2024-11-21 14:29 | DVHPN2 ---
Progress Note Date Seen: Nov 21, 2024 Medical Necessity Reason Pt with a Central, PICC or Fol: No Objective vital signs Vital Sign Date Time Temp Pulse Resp B/P (MAP) Pulse Ox O2 Delivery O2 Flow Rate FiO2 11/21/24 08:50 98.2 92 19 118/76 (90) 94 98.2 11/21/24 08:00 Room Air* 0 21 Total Intake and Output 11/20/24 11/20/24 11/21/24 15:00 23:00 07:00 Intake Total 100 ml 850 ml 650 ml Output Total 450 ml 4 ml Balance 100 ml 400 ml 646 ml medications Current Medications Medications Dose Ordered Sig/Edis Route Start Time Stop Time Status Last Admin Dose Admin Acetaminophen 650 mg Q6HPRN PRN PO 11/11/24 23:45 11/19/24 18:59 650 MG Piperacillin Sod/ Tazobactam Sod 100 ml @ 25 mls/hr Q8HR IV 11/12/24 06:00 UNV Ondansetron HCl 4 mg Q4HPRN PRN IV 11/12/24 07:45 11/12/24 16:33 4 MG Pantoprazole Sodium 40 mg DAILY IV 11/13/24 10:00 11/21/24 09:35 40 MG Morphine Sulfate 2 mg Q4HPRN PRN IV 11/12/24 16:45 11/20/24 21:49 2 MG Vancomycin HCl 300 ml @ 200 mls/hr Q12H IV 11/13/24 15:00 UNV Dextrose 50 ml UD IV 11/15/24 12:00 Sodium Chloride 10 ml QSHIFT@10,22 IV 11/15/24 22:00 11/21/24 09:36 10 ML Diagnostic Test (Pha) 1 strip Q6HR 11/15/24 18:00 11/21/24 11:29 1 STRIP Insulin Human Regular FOLLOW SLIDING SCALE Q6HR SC 11/15/24 18:00 11/21/24 11:40 2 UNITS Hydralazine HCl 10 mg Q6HP PRN IV 11/16/24 15:45 11/16/24 16:13 10 MG Piperacillin Sod/ Tazobactam Sod 100 ml @ 25 mls/hr Q6H IV 11/18/24 01:00 11/21/24 12:56 25 MLS/HR Fat Emulsion Intravenous 200 ml/Sodium Chloride 80 meq/ Sodium Acetate 40 meq/Potassium Chloride 40 meq/ Potassium Phosphate 22 meq/ Calcium Gluconate 2.3 meq/Magnesium Sulfate 8 meq/ Multivitamins 10 ml/Chromium/ Copper/Manganese/ Zinc 1 ml/Amino Acids/Dextrose 1,582.9462 ml @ 66 mls/hr Q24H IV 11/18/24 22:00 11/19/24 21:59 Cancel Docusate Sodium 100 mg BID PO 11/19/24 22:00 11/21/24 09:35 100 MG Melatonin 10 mg HS PO 11/19/24 22:00 11/20/24 21:49 10 MG Enoxaparin Sodium 120 mg Q12HR SC 11/20/24 13:12 11/21/24 09:36 120 MG Sodium Chloride 1,000 ml @ 100 mls/hr Q10H IV 11/20/24 11:30 11/20/24 12:20 100 MLS/HR Amino Acids 0 ml @ 0 mls/hr PER PHARMACY IV 11/20/24 11:45 Amino Acids/ Electrolytes/ Dextrose 1,000 ml @ 41 mls/hr DAILY@2200 IV 11/20/24 22:00 11/20/24 22:04 41 MLS/HR laboratory and microbiology Laboratory Tests 11/21/24 06:24 Test 11/21/24 06:24 Range/Units Serum Glucose 120 H 74-106 mg/dL Problem List/Assessment/Plan Problem List/Assessment/Plan 11/13/24feels well, abdomen non tender, ;leukocytosis, continue, as is, repeat CT scan in 48 hours 11/15/24 UNDERWENT PERCUTANEOUS DRAINAGE OF PERICOLONIC ABSCESS, ABDOMEN NON DISTENDED, NON TENDER. WILL FOLLOW 11/16/24 feels well, hungry, abdomen non tyender, derainage purulent, will irrigate, allow po intake 11/19/24 NO ABDOMINAL PAIN, NO NAUSEA, ABDOMEN NON TENDER, PICC LINE WAS REMOVED ,WILL CHECK CBC IN AM 11/20/24 await CBC tomorrow to decide on next step, abdomen non ternder but no BM, he feels "backed Up" will get gastrografin bowel x ray. 11/21/24 patient had a few bowel movements but feels worse, although his abdomen is not tender, his WBC is climbing and his CT scan looks much worse. I gave the patient the option to go back to NPO and TPN vs an operation with a colostomy, he choses to be operated on and get a colostomy as this "may be a faster way to get better". Operation, risks and complications explained in detail/ Plan discussed with: Patient Dietary Evaluation Review Comments: To meet at least 75% ofpt's needs, recommend TPN kcal to be increased to 1500-2000kcal range and protein to be increased to 80-90g/d. Expected Outcomes/Goals: Pt will experience a gradual wt loss at this kcal level, yet, the appropriated nutrition support of protein and kcal can enhance pt's GI perforation healing process, and help him regain normal GI functionality DANA CHOW MD Nov 21, 2024 14:29
--- NOTE | 2024-11-21 15:39 | DVHPN2 ---
Progress Note - Dictate Date Seen: Nov 21, 2024 Medical Necessity Reason Pt with a Central, PICC or Fol: No Subjective Worsening leukocytosis and CT scan imaging Patient had a few bowel movements but feels worse, Intermittent low-grade fever Currently NPO vital signs Vital Sign Date Time Temp Pulse Resp B/P (MAP) Pulse Ox O2 Delivery O2 Flow Rate FiO2 11/21/24 08:50 98.2 92 19 118/76 (90) 94 98.2 11/21/24 08:00 Room Air* 0 21 Total Intake and Output 11/20/24 11/20/24 11/21/24 15:00 23:00 07:00 Intake Total 100 ml 850 ml 650 ml Output Total 450 ml 4 ml Balance 100 ml 400 ml 646 ml medications Current Medications Medications Dose Ordered Sig/Edis Route Start Time Stop Time Status Last Admin Dose Admin Acetaminophen 650 mg Q6HPRN PRN PO 11/11/24 23:45 11/19/24 18:59 650 MG Piperacillin Sod/ Tazobactam Sod 100 ml @ 25 mls/hr Q8HR IV 11/12/24 06:00 UNV Ondansetron HCl 4 mg Q4HPRN PRN IV 11/12/24 07:45 11/12/24 16:33 4 MG Pantoprazole Sodium 40 mg DAILY IV 11/13/24 10:00 11/21/24 09:35 40 MG Morphine Sulfate 2 mg Q4HPRN PRN IV 11/12/24 16:45 11/20/24 21:49 2 MG Vancomycin HCl 300 ml @ 200 mls/hr Q12H IV 11/13/24 15:00 UNV Dextrose 50 ml UD IV 11/15/24 12:00 Sodium Chloride 10 ml QSHIFT@10,22 IV 11/15/24 22:00 11/21/24 09:36 10 ML Diagnostic Test (Pha) 1 strip Q6HR 11/15/24 18:00 11/21/24 11:29 1 STRIP Insulin Human Regular FOLLOW SLIDING SCALE Q6HR SC 11/15/24 18:00 11/21/24 11:40 2 UNITS Hydralazine HCl 10 mg Q6HP PRN IV 11/16/24 15:45 11/16/24 16:13 10 MG Piperacillin Sod/ Tazobactam Sod 100 ml @ 25 mls/hr Q6H IV 11/18/24 01:00 11/21/24 12:56 25 MLS/HR Fat Emulsion Intravenous 200 ml/Sodium Chloride 80 meq/ Sodium Acetate 40 meq/Potassium Chloride 40 meq/ Potassium Phosphate 22 meq/ Calcium Gluconate 2.3 meq/Magnesium Sulfate 8 meq/ Multivitamins 10 ml/Chromium/ Copper/Manganese/ Zinc 1 ml/Amino Acids/Dextrose 1,582.9462 ml @ 66 mls/hr Q24H IV 11/18/24 22:00 11/19/24 21:59 Cancel Docusate Sodium 100 mg BID PO 11/19/24 22:00 11/21/24 09:35 100 MG Melatonin 10 mg HS PO 11/19/24 22:00 11/20/24 21:49 10 MG Sodium Chloride 1,000 ml @ 100 mls/hr Q10H IV 11/20/24 11:30 11/20/24 12:20 100 MLS/HR Amino Acids 0 ml @ 0 mls/hr PER PHARMACY IV 11/20/24 11:45 Amino Acids/ Electrolytes/ Dextrose 1,000 ml @ 41 mls/hr DAILY@2200 IV 11/20/24 22:00 11/20/24 22:04 41 MLS/HR objective General Appearance: Alert, Oriented X3, Cooperative, No acute distress HEENT: Atraumatic, PERRLA Lungs: Clear to auscultation Cardiovascular: Regular rate Abdomen: Normal bowel sounds; drainage tube in place Musculoskeletal: Normal sensory function, Normal motor function Neuro: Cranial nerves 3-12 NL Skin: Dry, Intact Psych/Mental Status: Mental status NL, Mood NL laboratory and microbiology Laboratory Tests 11/21/24 06:24 Test 11/21/24 06:24 Range/Units Serum Glucose 120 H 74-106 mg/dL Problems(with codes): (1) Diverticulitis large intestine (2) Abnormal finding on GI tract imaging (3) Abscess of sigmoid colon due to diverticulitis Prognosis Plan Continue IV fluid hydration Continue IV antibiotics NPO status Recommend getting a PICC line and starting TPN Surgical follow up appreciated There is a tentative plan for possible laparotomy and colostomy Dietary Evaluation Review Comments: To meet at least 75% ofpt's needs, recommend TPN kcal to be increased to 1500-2000kcal range and protein to be increased to 80-90g/d. Expected Outcomes/Goals: Pt will experience a gradual wt loss at this kcal level, yet, the appropriated nutrition support of protein and kcal can enhance pt's GI perforation healing process, and help him regain normal GI functionality Plan discussed with: Other (Dr Zacarias) DAVONTE BILLY MD Nov 21, 2024 15:38
[2024-11-21] MEDS: GOLYTELY 4L KIT PO ONE (16:19)
[2024-11-21 16:26] LABS: INR 1.23 (0.9-1.15); Partial Thromboplastin Time 31.8 SEC (24.5-34.5); Prothrombin Time 12.8 sec (9.3-11.8)
[2024-11-21 17:00] VITALS: BP 119/79; PULSE 95; RESP 18; TEMP 98; O2SAT 93
[2024-11-21 21:00] VITALS: BP 115/84; PULSE 100; RESP 18; TEMP 97.7; O2SAT 95
[2024-11-22] VITALS (34 sets, daily range): BP systolic 108–145; BP diastolic 47–102; PULSE 71–139; RESP 15–30; TEMP 97–98.5; O2SAT 92–97
[2024-11-22 07:06] LABS: Chloride 100.0 mmol/L (98-107); Potassium 3.6 mmol/L (3.5-5.1)
[2024-11-22 07:07] LABS: Anion Gap 11.0 (5-15); Carbon Dioxide 22.0 mmol/L (20-31)
[2024-11-22 07:09] LABS: Calcium 8.3 mg/dL (8.7-10.4); Sodium 133.0 mmol/L (136-145)
[2024-11-22 07:12] LABS: BUN/Creatinine Ratio 14.3 (10.0-20.0); Blood Urea Nitrogen 9.0 mg/dL (9-23)
[2024-11-22 07:13] LABS: Albumin 3.5 g/dL (3.2-4.8); Glucose 128.0 mg/dL (74-106); Magnesium 2.0 mg/dL (1.6-2.6)
[2024-11-22] MEDS: LIDOCAINE W/ EPINEPHRINE 1% 20ML VIAL ONE (07:52)
[2024-11-22] MEDS: BUPIVACAINE 0.5% P/F INJ 10 ML VIAL ONE (07:52)
[2024-11-22] MEDS ORDERED: MIDAZOLAM HCL 2MG/2ML 2ml VIAL (1mg/ml) ONE (08:07)
[2024-11-22] MEDS ORDERED: HYDROmorphone HCL 2 MG/ML VL/or syr ONE (08:07)
[2024-11-22] MEDS ORDERED: fentaNYL CITRATE 100 MCG/2 ML VL ONE ×2 (08:07→09:54)
[2024-11-22] MEDS ORDERED: PROPOFOL 10 MG/ML 20 ML IV ONE (08:15)
[2024-11-22] MEDS: SUCCINYLCHOLINE CHLORIDE 20 MG/ML 10ML VIAL IV ONE (08:15)
[2024-11-22] MEDS ORDERED: SUGAMMADEX 200mg/2ml Vial (100MG/ML) IV ONE (10:36)
[2024-11-22] MEDS: POVIDONE IODINE 10 % TOPICAL OINT 30GM TOP ONE (10:43)
[2024-11-22] MEDS ORDERED: MORPHINE SULFATE 4 MG/ML SYR/VIAL IV PRN (11:15)
[2024-11-22] MEDS ORDERED: hydrALAZINE HCL 20 MG/ML VL IV PRN (11:15)
[2024-11-22] MEDS ORDERED: MIDAZOLAM HCL 2MG/2ML 2ml VIAL (1mg/ml) IV PRN (11:15)
[2024-11-22] MEDS: ONDANSETRON HCL 4 MG/2 ML VIAL IV ONE (11:15)
[2024-11-22] MEDS: HYDROmorphone HCL 2 MG/ML VL/or syr IV PRN (11:36)
--- NOTE | 2024-11-22 12:46 | DVH ---
CHEST RADIOGRAPH Indication: POST NGT INSERTION Technique: Single frontal view of the chest was obtained COMPARISON: None FINDINGS: Nasogastric tube projects towards the stomach with tip projecting over the gastric fundal region. Low lung volumes. The cardiac silhouette is enlarged. The lungs demonstrate bilateral patchy airspace opacities. The pu lmonary vasculature is prominent. Small right pleural effusion. There is no pneumothorax. IMPRESSION: 1. As above
--- NOTE | 2024-11-22 13:19 | DVHPN2 ---
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 (Operations Dispatcher) Changes from previous H/P or p: No Changes General: Per HPI Objective Vitals Vital Signs Date Time Temp Pulse Resp B/P (MAP) Pulse Ox O2 Delivery O2 Flow Rate FiO2 11/22/24 12:56 Nasal Cannula 3.5 95 11/22/24 12:20 140 21 149/58 (88) 95 11/22/24 11:05 98.0 98.0 Intake/Output Intake and Output 11/22/24 07:00 Intake Total 1100 ml Balance 1100 ml Intake Oral 700 ml IV Total 400 ml # Voids 7 # Bowel Movements 5 Exam Assessed in the recovery area. General Appearance: No acute distress, Other (Patient is still somnolent from surgery) HEENT: Atraumatic, PERRLA Lungs: Clear to auscultation, Normal air movement, Other (Nasal cannula at 4 L/min) Cardiovascular: Normal S1, Normal S2, Other (Sinus tachycardia) Abdomen: Normal bowel sounds, Other (Colostomy) Neuro: Normal gait, Normal speech Skin: Dry, Intact Psych/Mental Status: Mental status NL, Mood NL Medications Current Medications Medications Dose Ordered Sig/Edis Route Start Time Stop Time Status Last Admin Dose Admin Acetaminophen 650 mg Q6HPRN PRN PO 11/11/24 23:45 11/21/24 21:58 650 MG Piperacillin Sod/ Tazobactam Sod 100 ml @ 25 mls/hr Q8HR IV 11/12/24 06:00 UNV Ondansetron HCl 4 mg Q4HPRN PRN IV 11/12/24 07:45 11/12/24 16:33 4 MG Pantoprazole Sodium 40 mg DAILY IV 11/13/24 10:00 11/21/24 09:35 40 MG Morphine Sulfate 2 mg Q4HPRN PRN IV 11/12/24 16:45 11/20/24 21:49 2 MG Vancomycin HCl 300 ml @ 200 mls/hr Q12H IV 11/13/24 15:00 UNV Dextrose 50 ml UD IV 11/15/24 12:00 Sodium Chloride 10 ml QSHIFT@10,22 IV 11/15/24 22:00 11/21/24 22:00 10 ML Diagnostic Test (Pha) 1 strip Q6HR 11/15/24 18:00 11/22/24 06:00 1 STRIP Insulin Human Regular FOLLOW SLIDING SCALE Q6HR SC 11/15/24 18:00 11/21/24 18:23 2 UNITS Hydralazine HCl 10 mg Q6HP PRN IV 11/16/24 15:45 11/16/24 16:13 10 MG Piperacillin Sod/ Tazobactam Sod 100 ml @ 25 mls/hr Q6H IV 11/18/24 01:00 11/22/24 01:02 25 MLS/HR Fat Emulsion Intravenous 200 ml/Sodium Chloride 80 meq/ Sodium Acetate 40 meq/Potassium Chloride 40 meq/ Potassium Phosphate 22 meq/ Calcium Gluconate 2.3 meq/Magnesium Sulfate 8 meq/ Multivitamins 10 ml/Chromium/ Copper/Manganese/ Zinc 1 ml/Amino Acids/Dextrose 1,582.9462 ml @ 66 mls/hr Q24H IV 11/18/24 22:00 11/19/24 21:59 Cancel Docusate Sodium 100 mg BID PO 11/19/24 22:00 11/21/24 09:35 100 MG Melatonin 10 mg HS PO 11/19/24 22:00 11/21/24 21:51 10 MG Sodium Chloride 1,000 ml @ 100 mls/hr Q10H IV 11/20/24 11:30 11/20/24 12:20 100 MLS/HR Amino Acids 0 ml @ 0 mls/hr PER PHARMACY IV 11/20/24 11:45 Amino Acids/ Electrolytes/ Dextrose 1,000 ml @ 41 mls/hr DAILY@2200 IV 11/20/24 22:00 11/21/24 21:54 41 MLS/HR Laboratory Results Laboratory Tests 11/21/24 06:24 11/22/24 04:07 Chemistry Test 11/22/24 04:07 Albumin 3.5 g/dL (3.2-4.8) Calcium Level 8.3 mg/dL (8.7-10.4) L Magnesium Level 2.0 mg/dL (1.6-2.6) Phosphorus Level 3.0 mg/dL (2.4-5.1) Coagulation Test 11/21/24 15:56 Prothrombin Time 12.8 sec (9.3-11.8) H Prothrombin Time INR 1.23 (0.9-1.15) H Activated Partial Thromboplast Time 31.8 SEC (24.5-34.5) Urinalysis Test 11/11/24 20:50 Urine Color Yellow (Yellow) Urine Clarity Clear (Clear) Urine pH 6.0 (5.0-9.0) Urine Specific [place] 1.021 (1.001-1.035) Urine Protein 1+ (Negative) H Urine Ketones Negative (Negative) Urine Blood 2+ /uL (Negative) H Urine Nitrite Negative (Negative) Urine Bilirubin Negative (Negative) Urine Urobilinogen 3 mg/dL (Negative) H Urine Leukocyte Esterase Negative /uL (Negative) Urine RBC 1 /hpf (0 - 3) Urine Microscopic WBC 6 /HPF (0-3) H Urine Squamous Epithelial Cells None seen /hpf (<5) Urine Bacteria None seen /hpf (None Seen) Urine Mucus Few (None Seen) Urine Glucose 1+ mg/dL (Normal) H Microbiology Microbiology Date/Time Source Procedure Growth Status 11/18/24 22:00 Catheter Site Aerobic Culture - Preliminary Resulted 11/18/24 10:20 Voided Urine Urine Culture - Final Complete 11/18/24 09:45 Blood Blood Culture - Preliminary NO GROWTH AFTER 72 HOURS OF INCUBATION. Resulted 11/15/24 13:15 Aspirate Gram Stain - Final Complete 11/15/24 13:15 Body Fluid Culture - Final Escherichia coli Complete Labs and/or images reviewed: Labs reviewed by me, Image(s) reviewed by me Assessment/Plan Assessment/Plan Impression: -severe sepsis secondary to perforated diverticulitis -obesity -hypokalemia -hyponatremia -right upper extremity DVT Plan: Events: Patient to OR today for exploratory laparotomy peritoneal wash as well as colostomy creation. -continue Zosyn given positive E coli radiology aspiration -TPN -Normal saline at 100 mL/hour -PPI -pain management -out of bed as tolerated -repeat labs in a.m. Total time spent with patient discussing and formulating plan of care: 35 minutes. This medical document was created using an electronic medical record system with [employer] dictation system. Although this document has been carefully reviewed, there may still be some phonetic and typographical errors. These areas are purely typographical due to imperfections of the software programs, and do not reflect any compromise in the patient's medical care. Plan discussed with: Patient, Other (RN) My Orders Orders - SANDRA GOODMAN NP Procedure Category Date Status Time Clinimix Per Pharmacy [facility] 11/21/24 In Process 22:00 Clinimix Per Pharmacy [facility] 11/22/24 In Process 22:00 Comprehensive LAB 11/23/24 Verified Metabolic Panel 04:00 Magnesium LAB 11/23/24 Verified 04:00 Phosphorus LAB 11/23/24 Verified 04:00 Complete Blood Count LAB 11/23/24 Verified 05:00 Complete Blood Count LAB 11/24/24 Verified 05:00 Complete Blood Count LAB 11/25/24 Verified 05:00 Date of Service: Nov 22, 2024 Billing Provider: SANDRA GOODMAN NP Common Visit Codes: [id number] INP/OBS CARE(HIGH) SANDRA GOODMAN NP Nov 22, 2024 13:19
--- NOTE | 2024-11-22 14:43 | DVHOP ---
DATE OF SURGERY: 11/22/2024 PREOPERATIVE DIAGNOSES: * Persistent abdominopelvic abscess with sepsis. * Persistent perforation of diverticulitis. POSTOPERATIVE DIAGNOSES: Diverticular abscess with persistent intraabdominal abscesses, sepsis as well colonic perforation. PROCEDURES: * Exploratory laparotomy. * Segmental colon resection. * Descending colon colostomy. DESCRIPTION OF PROCEDURE: Under general anesthesia with the patient's skin prepped and draped, the patient's abdominal cavity was opened through a midline incision. The patient's morbid obesity made this operation exceedingly difficult. Much intraabdominal fat made the operation very difficult. Much subcutaneous fat made the operation even more difficult. The patient's colon was completely surrounded with adipose tissue which made mobilization of the colon difficult and eventual colostomy creation extremely difficult as well. The abscessed part of the colon with approximately 300 mL collection of pus was mobilized. The pus was aspirated and submitted for cultures and sensitivities. The abdomen was profusely irrigated. Change of gloves occurred and the patient's descending colon was mobilized. The abscessed perforated portion of the colon was excised by means of an ILANA stapler and the mesentery divided between clamps and ligated with careful preservation of the ureters which were visualized in the retroperitoneum. The patient's colon was removed and the colon was mobilized to the splenic flexure in order to facilitate the descending colon colostomy. A colostomy defect in the abdominal cavity was created. The subcutaneous fat was excised in a cylindrical fashion to allow of tension-free colostomy as much as possible. Following exteriorization of the colostomy segment of the colon, the abdomen was again profusely irrigated, irrigant was aspirated. Hemostasis was meticulously inspected, found to be complete. The rectosigmoid stump was secured with a 0 Prolene suture to the retroperitoneum which was left as a long marking suture for eventual take down procedure in the future. Pelvis was profusely irrigated. A large Trina drain was inserted and exteriorized separately secured with a 2-0 nylon suture. The abdomen being found without any evidence of ongoing hemorrhage was then closed using 2-0 Monocryl suture for approximation of the peritoneum and the #1 double-stranded PDS suture for approximation of the muscle and fascia. Skin was approximated after irrigation of the subcutaneous tissues with 2 liters of saline. Approximation of the skin with metallic skin candace was accomplished. The patient's colostomy was then matured using 0 Monocryl suture. The colostomy appeared viable and tension free at the termination of its creation. The patient remained stable throughout the procedure, left the operating room following an accurate needle and sponge count. Attempts at communicating with his at [phone] were not successful. MD SAMREEN Pina/KARL TID: [id number] RECEIPT: [id number]
[2024-11-22] MEDS: METOPROLOL TARTRATE 1MG/1ML-5ML VIAL IV ONE (16:58)
[2024-11-22 17:08] LABS: Hematocrit 30.8 % (41.0-53.0); Hemoglobin 10.3 g/dL (13.5-17.5); Mean Corpuscular Hemoglobin 27.7 pg (28.0-32.0); Mean Corpuscular Volume 83.0 fL (80.0-100.0)
[2024-11-22 17:20] LABS: Chloride 104 mmol/L (98-107); Potassium 4.6 mmol/L (3.5-5.1)
[2024-11-22 17:21] LABS: Anion Gap 10 (5-15); Carbon Dioxide 21 mmol/L (20-31)
[2024-11-22 17:26] LABS: BUN/Creatinine Ratio 16.0 (10.0-20.0); Blood Urea Nitrogen 13 mg/dL (9-23)
[2024-11-22 17:30] LABS: Calcium 8.5 mg/dL (8.7-10.4); Glucose 199 mg/dL (74-106); Sodium 135 mmol/L (136-145)
[2024-11-22 17:42] LABS: Total Cells Counted 100.0 (100)
[2024-11-22] MEDS: D5W/SOD CHL 0.45% 1,000 ML IV SCH (18:14)
--- NOTE | 2024-11-22 21:43 | DVHPN2 ---
Progress Note - Dictate Date Seen: Nov 22, 2024 Medical Necessity Reason Pt with a Central, PICC or Fol: No Subjective Patient underwent exploratory laparotomy with partial sigmoid resection ;Descending colostomy for perforated diverticulitis with abscess Patient seen in ICU bed 104, awake alert extubated complaining of some difficulty breathing and postop abdominal pain Patient noted to have mild tachycardia and also severe leukocytosis vital signs Vital Sign Date Time Temp Pulse Resp B/P (MAP) Pulse Ox O2 Delivery O2 Flow Rate FiO2 11/22/24 19:45 125 22 125/63 (83) 96 11/22/24 16:30 98.1 98.1 11/22/24 12:56 Nasal Cannula 3.5 95 Total Intake and Output 11/21/24 11/21/24 11/22/24 15:00 23:00 07:00 Intake Total 100 ml 1000 ml 0 ml Balance 100 ml 1000 ml 0 ml medications Current Medications Medications Dose Ordered Sig/Edis Route Start Time Stop Time Status Last Admin Dose Admin Acetaminophen 650 mg Q6HPRN PRN PO 11/11/24 23:45 11/21/24 21:58 650 MG Piperacillin Sod/ Tazobactam Sod 100 ml @ 25 mls/hr Q8HR IV 11/12/24 06:00 UNV Ondansetron HCl 4 mg Q4HPRN PRN IV 11/12/24 07:45 11/12/24 16:33 4 MG Pantoprazole Sodium 40 mg DAILY IV 11/13/24 10:00 11/21/24 09:35 40 MG Morphine Sulfate 2 mg Q4HPRN PRN IV 11/12/24 16:45 11/22/24 18:25 2 MG Vancomycin HCl 300 ml @ 200 mls/hr Q12H IV 11/13/24 15:00 UNV Dextrose 50 ml UD IV 11/15/24 12:00 Sodium Chloride 10 ml QSHIFT@10,22 IV 11/15/24 22:00 11/21/24 22:00 10 ML Diagnostic Test (Pha) 1 strip Q6HR 11/15/24 18:00 11/22/24 18:09 1 STRIP Insulin Human Regular FOLLOW SLIDING SCALE Q6HR SC 11/15/24 18:00 11/22/24 18:12 4 UNITS Hydralazine HCl 10 mg Q6HP PRN IV 11/16/24 15:45 11/16/24 16:13 10 MG Piperacillin Sod/ Tazobactam Sod 100 ml @ 25 mls/hr Q6H IV 11/18/24 01:00 11/22/24 18:09 25 MLS/HR Fat Emulsion Intravenous 200 ml/Sodium Chloride 80 meq/ Sodium Acetate 40 meq/Potassium Chloride 40 meq/ Potassium Phosphate 22 meq/ Calcium Gluconate 2.3 meq/Magnesium Sulfate 8 meq/ Multivitamins 10 ml/Chromium/ Copper/Manganese/ Zinc 1 ml/Amino Acids/Dextrose 1,582.9462 ml @ 66 mls/hr Q24H IV 11/18/24 22:00 11/19/24 21:59 Cancel Docusate Sodium 100 mg BID PO 11/19/24 22:00 11/21/24 09:35 100 MG Melatonin 10 mg HS PO 11/19/24 22:00 11/21/24 21:51 10 MG Amino Acids 0 ml @ 0 mls/hr PER PHARMACY IV 11/20/24 11:45 Amino Acids/ Electrolytes/ Dextrose 1,000 ml @ 41 mls/hr DAILY@2200 IV 11/20/24 22:00 11/21/24 21:54 41 MLS/HR Dextrose/Sodium Chloride 1,000 ml @ 75 mls/hr [id number] IV 11/22/24 18:00 11/22/24 18:14 75 MLS/HR objective General Appearance: Alert, Oriented X3, Cooperative, No acute distress HEENT: Atraumatic, PERRLA Lungs: Clear to auscultation Cardiovascular: Regular rate Abdomen: Normal bowel sounds; drainage tube in place Musculoskeletal: Normal sensory function, Normal motor function Neuro: Cranial nerves 3-12 NL Skin: Dry, Intact Psych/Mental Status: Mental status NL, Mood NL laboratory and microbiology Laboratory Tests 11/22/24 17:00 Test 11/22/24 17:00 Range/Units Serum Glucose 199 H 74-106 mg/dL Problems(with codes): (1) Diverticulitis large intestine (2) Abnormal finding on GI tract imaging (3) Abscess of sigmoid colon due to diverticulitis (4) Leukocytosis Prognosis Plan NPO IV Clinimix at 42 mL/hour D5 half-normal saline at 50 mL/hour IV antibiotics Supportive care Incentive spirometry Await final cultures Surgical input appreciated Dietary Evaluation Review Comments: To meet at least 75% ofpt's needs, recommend TPN kcal to be increased to 1500-2000kcal range and protein to be increased to 80-90g/d. Expected Outcomes/Goals: Pt will experience a gradual wt loss at this kcal level, yet, the appropriated nutrition support of protein and kcal can enhance pt's GI perforation healing process, and help him regain normal GI functionality Plan discussed with: Patient, Other (ICU Nurse) DAVONTE BILLY MD Nov 22, 2024 21:43
[2024-11-23] VITALS (57 sets, daily range): BP systolic 120–147; BP diastolic 57–76; PULSE 106–136; RESP 13–42; TEMP 98.3–99; O2SAT 90–99
[2024-11-23 03:55] LABS: Hematocrit 26.3 % (41.0-53.0); Mean Corpuscular Hemoglobin 28.3 pg (28.0-32.0); Nucleated Red Blood Cells % 0.0 %
[2024-11-23 04:00] LABS: Hemoglobin 8.9 g/dL (13.5-17.5); Mean Corpuscular Volume 83.5 fL (80.0-100.0)
[2024-11-23 04:14] LABS: Alanine Aminotransferase 34 U/L (7-40); Alkaline Phosphatase 62 U/L (46-116); Anion Gap 9 (5-15); BUN/Creatinine Ratio 22.4 (10.0-20.0); Blood Urea Nitrogen 13 mg/dL (9-23); Carbon Dioxide 22 mmol/L (20-31); Chloride 102 mmol/L (98-107); Magnesium 2.0 mg/dL (1.6-2.6); Potassium 4.5 mmol/L (3.5-5.1)
[2024-11-23 04:15] LABS: Bilirubin, Total 0.6 mg/dL (0.2-1.0)
[2024-11-23 04:16] LABS: Albumin 2.8 g/dL (3.2-4.8); Calcium 7.8 mg/dL (8.7-10.4); Glucose 188 mg/dL (74-106); Sodium 133 mmol/L (136-145); Total Protein 5.1 g/dL (5.7-8.2)
--- NOTE | 2024-11-23 07:23 | ECG ---
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
--- NOTE | 2024-11-23 09:52 | DVHPN2 ---
Subjective Complaining of abdominal pain 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 (Ent Consultant) Changes from previous H/P or p: No Changes General: Per HPI Objective Vitals Vital Signs Date Time Temp Pulse Resp B/P (MAP) Pulse Ox O2 Delivery O2 Flow Rate FiO2 11/23/24 06:45 111 31 126/64 (84) 94 11/23/24 06:00 Nasal Cannula* 2 28 11/23/24 04:00 98.7 98.7 Intake/Output Intake and Output 11/23/24 07:00 Intake Total 1833 ml Output Total 1315 ml Balance 518 ml Intake Oral 0 ml IV Total 1833 ml Output Urine Total 1050 ml Drainage Total 265 ml Exam Assessed in the recovery area. General Appearance: Alert, Oriented X3, Cooperative, mild distress HEENT: Atraumatic, PERRLA Lungs: Clear to auscultation, Normal air movement, Other (Nasal cannula at 4 L/min) Cardiovascular: Normal S1, Normal S2, Other (Sinus tachycardia) Abdomen: Other (Absent bowel sounds. Colostomy with no output.) Genitourinary: No Apparent Abnormalities (Hernandez catheter) Musculoskeletal: Normal sensory function, Normal motor function Neuro: Normal gait, Normal speech, Sensation intact, Cranial nerves 3-12 NL Skin: Dry, Intact Psych/Mental Status: Mental status NL, Mood NL Medications Current Medications Medications Dose Ordered Sig/Edis Route Start Time Stop Time Status Last Admin Dose Admin Acetaminophen 650 mg Q6HPRN PRN PO 11/11/24 23:45 11/21/24 21:58 650 MG Piperacillin Sod/ Tazobactam Sod 100 ml @ 25 mls/hr Q8HR IV 11/12/24 06:00 UNV Ondansetron HCl 4 mg Q4HPRN PRN IV 11/12/24 07:45 11/12/24 16:33 4 MG Pantoprazole Sodium 40 mg DAILY IV 11/13/24 10:00 11/21/24 09:35 40 MG Morphine Sulfate 2 mg Q4HPRN PRN IV 11/12/24 16:45 11/22/24 23:00 2 MG Vancomycin HCl 300 ml @ 200 mls/hr Q12H IV 11/13/24 15:00 UNV Dextrose 50 ml UD IV 11/15/24 12:00 Sodium Chloride 10 ml QSHIFT@10,22 IV 11/15/24 22:00 11/22/24 22:02 10 ML Diagnostic Test (Pha) 1 strip Q6HR 11/15/24 18:00 11/23/24 05:56 1 STRIP Insulin Human Regular FOLLOW SLIDING SCALE Q6HR SC 11/15/24 18:00 11/23/24 05:57 2 UNITS Hydralazine HCl 10 mg Q6HP PRN IV 11/16/24 15:45 11/16/24 16:13 10 MG Piperacillin Sod/ Tazobactam Sod 100 ml @ 25 mls/hr Q6H IV 11/18/24 01:00 11/23/24 06:07 25 MLS/HR Fat Emulsion Intravenous 200 ml/Sodium Chloride 80 meq/ Sodium Acetate 40 meq/Potassium Chloride 40 meq/ Potassium Phosphate 22 meq/ Calcium Gluconate 2.3 meq/Magnesium Sulfate 8 meq/ Multivitamins 10 ml/Chromium/ Copper/Manganese/ Zinc 1 ml/Amino Acids/Dextrose 1,582.9462 ml @ 66 mls/hr Q24H IV 11/18/24 22:00 11/19/24 21:59 Cancel Amino Acids 0 ml @ 0 mls/hr PER PHARMACY IV 11/20/24 11:45 Amino Acids/ Electrolytes/ Dextrose 1,000 ml @ 41 mls/hr DAILY@2200 IV 11/20/24 22:00 11/22/24 22:02 41 MLS/HR Dextrose/Sodium Chloride 1,000 ml @ 75 mls/hr [id number] IV 11/22/24 18:00 11/23/24 08:06 75 MLS/HR Laboratory Results Laboratory Tests 11/23/24 03:06 Chemistry Test 11/22/24 17:00 11/23/24 03:06 Calcium Level 8.5 mg/dL (8.7-10.4) L 7.8 mg/dL (8.7-10.4) L Albumin 2.8 g/dL (3.2-4.8) L Magnesium Level 2.0 mg/dL (1.6-2.6) Phosphorus Level 2.8 mg/dL (2.4-5.1) Total Protein 5.1 g/dL (5.7-8.2) L LFT Test 11/23/24 03:06 Alanine Aminotransferase (ALT) 34 U/L (7-40) Alkaline Phosphatase 62 U/L (46-116) Aspartate Amino Transferase (AST) 16 U/L (0-34) Total Bilirubin 0.6 mg/dL (0.2-1.0) Urinalysis Test 11/11/24 20:50 Urine Color Yellow (Yellow) Urine Clarity Clear (Clear) Urine pH 6.0 (5.0-9.0) Urine Specific [place] 1.021 (1.001-1.035) Urine Protein 1+ (Negative) H Urine Ketones Negative (Negative) Urine Blood 2+ /uL (Negative) H Urine Nitrite Negative (Negative) Urine Bilirubin Negative (Negative) Urine Urobilinogen 3 mg/dL (Negative) H Urine Leukocyte Esterase Negative /uL (Negative) Urine RBC 1 /hpf (0 - 3) Urine Microscopic WBC 6 /HPF (0-3) H Urine Squamous Epithelial Cells None seen /hpf (<5) Urine Bacteria None seen /hpf (None Seen) Urine Mucus Few (None Seen) Urine Glucose 1+ mg/dL (Normal) H Microbiology Microbiology Date/Time Source Procedure Growth Status 11/18/24 22:00 Catheter Site Aerobic Culture - Preliminary Resulted 11/18/24 10:20 Voided Urine Urine Culture - Final Complete 11/18/24 09:45 Blood Blood Culture - Preliminary NO GROWTH AFTER 72 HOURS OF INCUBATION. Resulted 11/15/24 13:15 Aspirate Gram Stain - Final Complete 11/15/24 13:15 Body Fluid Culture - Final Escherichia coli Complete Labs and/or images reviewed: Labs reviewed by me, Image(s) reviewed by me Assessment/Plan Assessment/Plan Impression: -severe sepsis secondary to perforated diverticulitis -obesity -hypokalemia -hyponatremia -right upper extremity DVT Plan: Events: Postop day one exploratory laparotomy with colostomy creation. Patient now on O2 supplementation. Probably secondary to atelectasis,? Pulmonary vascular congestion from volume resuscitation yesterday. Chest x-ray pending. -continue Zosyn -continue PPN -continue current IV fluids. -PPI -pain management -out of bed as tolerated, physical therapy -incentive spirometer -start anticoagulation once okay with surgery -downgrade to telemetry for if okay with surgery -repeat labs in a.m. Critical care time spent with patient discussing and formulating plan of care: 40 minutes. This does not include time spent performing procedures. This medical document was created using an electronic medical record system with [employer] computerized dictation system. Although this document has been carefully reviewed, there may still be some phonetic and typographical errors. These areas are purely typographical due to imperfections of the software programs, and do not reflect any compromise in the patient's medical care. Plan discussed with: Patient, Other (RN) My Orders Orders - SANDRA GOODMAN NP Procedure Category Date Status Time Clinimix Per Pharmacy PETE 11/22/24 In Process 22:00 Complete Blood Count LAB 11/24/24 Verified 05:00 Complete Blood Count LAB 11/25/24 Verified 05:00 Chest Xray 1 View XY 11/23/24 Logged 09:37 Basic Metabolic Panel LAB 11/24/24 Verified 05:00 Basic Metabolic Panel LAB 11/25/24 Verified 05:00 Basic Metabolic Panel LAB 11/26/24 Verified 05:00 Communication Order ORDERS 11/23/24 Verified 09:47 Pt Request For Service PT 11/23/24 Verified 09:47 Oob To Chair PETE 11/23/24 Verified 09:47 Incentive Spirometry ORDERS 11/23/24 Verified Q 1hr 09:47 Communication Order ORDERS 11/23/24 Verified 09:47 Date of Service: Nov 23, 2024 Billing Provider: SANDRA GOODMAN NP Common Visit Codes: [id number] CARE 30-74 MIN SANDRA GOODMAN NP Nov 23, 2024 09:52
--- NOTE | 2024-11-23 11:21 | DVH ---
EXAM: XY CHEST XRAY 1 VIEW Indication: pain; chf Technique: Single frontal view of the chest was obtained Comparison: XY CHEST PORTABLE on DOS: 11/22/24, XY CHEST XRAY 1 VIEW on DOS: 11/11/24 FINDINGS: Lines and Tubes: Enteric tube tip projects over the expected region stomach. Lungs: Low lung volumes with bibasilar atelectasis Pleura: No effusion. No pneumothorax. Cardiomediastinal contours: Unremarkable Bones: No acute osseous abnormality. IMPRESSION: Low lung volumes with bibasilar atelectasis. Enteric tube tip projects over the expected region stom ach.
--- NOTE | 2024-11-23 16:24 | DVHPN2 ---
Progress Note - Dictate Date Seen: Nov 23, 2024 Medical Necessity Reason Pt with a Central, PICC or Fol: No Subjective Postop day 1. exploratory laparotomy with partial sigmoid resection ;Descending colostomy for perforated diverticulitis with abscess Patient seen in ICU bed 104, awake alert extubated complaining of some difficulty breathing and postop abdominal pain Leukocytosis is improving and patient is trying incentive spirometry Colostomy output minimal amount of blood-tinged mucoid material, no stool output NG tube output is bilious and clear vital signs Vital Sign Date Time Temp Pulse Resp B/P (MAP) Pulse Ox O2 Delivery O2 Flow Rate FiO2 11/23/24 11:16 113 20 135/59 11/23/24 10:00 95 Nasal Cannula* 2 28 11/23/24 04:00 98.7 98.7 Total Intake and Output 11/22/24 11/22/24 11/23/24 15:00 23:00 07:00 Intake Total 200 ml 721 ml 912 ml Output Total 215 ml 350 ml 750 ml Balance -15 ml 371 ml 162 ml medications Current Medications Medications Dose Ordered Sig/Edis Route Start Time Stop Time Status Last Admin Dose Admin Acetaminophen 650 mg Q6HPRN PRN PO 11/11/24 23:45 11/21/24 21:58 650 MG Piperacillin Sod/ Tazobactam Sod 100 ml @ 25 mls/hr Q8HR IV 11/12/24 06:00 UNV Ondansetron HCl 4 mg Q4HPRN PRN IV 11/12/24 07:45 11/12/24 16:33 4 MG Pantoprazole Sodium 40 mg DAILY IV 11/13/24 10:00 11/23/24 10:34 40 MG Morphine Sulfate 2 mg Q4HPRN PRN IV 11/12/24 16:45 11/23/24 10:46 2 MG Vancomycin HCl 300 ml @ 200 mls/hr Q12H IV 11/13/24 15:00 UNV Dextrose 50 ml UD IV 11/15/24 12:00 Sodium Chloride 10 ml QSHIFT@10,22 IV 11/15/24 22:00 11/23/24 10:34 10 ML Diagnostic Test (Pha) 1 strip Q6HR 11/15/24 18:00 11/23/24 12:00 1 STRIP Insulin Human Regular FOLLOW SLIDING SCALE Q6HR SC 11/15/24 18:00 11/23/24 12:57 2 UNITS Hydralazine HCl 10 mg Q6HP PRN IV 11/16/24 15:45 11/16/24 16:13 10 MG Piperacillin Sod/ Tazobactam Sod 100 ml @ 25 mls/hr Q6H IV 11/18/24 01:00 11/23/24 12:56 25 MLS/HR Fat Emulsion Intravenous 200 ml/Sodium Chloride 80 meq/ Sodium Acetate 40 meq/Potassium Chloride 40 meq/ Potassium Phosphate 22 meq/ Calcium Gluconate 2.3 meq/Magnesium Sulfate 8 meq/ Multivitamins 10 ml/Chromium/ Copper/Manganese/ Zinc 1 ml/Amino Acids/Dextrose 1,582.9462 ml @ 66 mls/hr Q24H IV 11/18/24 22:00 11/19/24 21:59 Cancel Amino Acids 0 ml @ 0 mls/hr PER PHARMACY IV 11/20/24 11:45 Amino Acids/ Electrolytes/ Dextrose 1,000 ml @ 41 mls/hr DAILY@2200 IV 11/20/24 22:00 11/22/24 22:02 41 MLS/HR Dextrose/Sodium Chloride 1,000 ml @ 75 mls/hr [id number] IV 11/22/24 18:00 11/23/24 08:06 75 MLS/HR objective General Appearance: Alert, Oriented X3, Cooperative, No acute distress HEENT: Atraumatic, PERRLA Lungs: Clear to auscultation Cardiovascular: Regular rate Abdomen: Normal bowel sounds; drainage tube in place Musculoskeletal: Normal sensory function, Normal motor function Neuro: Cranial nerves 3-12 NL Skin: Dry, Intact Psych/Mental Status: Mental status NL, Mood NL laboratory and microbiology Laboratory Tests 11/23/24 03:06 Test 11/23/24 03:06 Range/Units Serum Glucose 188 H 74-106 mg/dL Problems(with codes): (1) Diverticulitis large intestine (2) Abnormal finding on GI tract imaging (3) Abscess of sigmoid colon due to diverticulitis (4) Leukocytosis Prognosis Plan NPO IV Clinimix at 42 mL/hour D5 half-normal saline at 50 mL/hour IV antibiotics Supportive care Incentive spirometry Await final cultures Surgical input appreciated Dietary Evaluation Review Comments: To meet at least 75% ofpt's needs, recommend TPN kcal to be increased to 1500-2000kcal range and protein to be increased to 80-90g/d. Expected Outcomes/Goals: Pt will experience a gradual wt loss at this kcal level, yet, the appropriated nutrition support of protein and kcal can enhance pt's GI perforation healing process, and help him regain normal GI functionality Plan discussed with: Patient, Spouse DAVONTE BILLY MD Nov 23, 2024 16:24
[2024-11-24] VITALS (50 sets, daily range): BP systolic 114–165; BP diastolic 59–80; PULSE 85–127; RESP 14–36; TEMP 98.2–100.2; O2SAT 91–97
[2024-11-24 04:52] LABS: Alanine Aminotransferase 29 U/L (7-40); Alkaline Phosphatase 68 U/L (46-116); Anion Gap 10 (5-15); BUN/Creatinine Ratio 16.9 (10.0-20.0); Blood Urea Nitrogen 10 mg/dL (9-23); Carbon Dioxide 23 mmol/L (20-31); Chloride 101 mmol/L (98-107); Magnesium 2.2 mg/dL (1.6-2.6); Potassium 5.0 mmol/L (3.5-5.1); Triglycerides 110 mg/dL (< 150)
[2024-11-24 04:53] LABS: Bilirubin, Total 0.5 mg/dL (0.2-1.0)
[2024-11-24 04:56] LABS: Albumin 2.7 g/dL (3.2-4.8); Calcium 8.2 mg/dL (8.7-10.4); Glucose 132 mg/dL (74-106); Sodium 134 mmol/L (136-145); Total Protein 4.8 g/dL (5.7-8.2)
[2024-11-24 07:29] LABS: Hemoglobin 7.2 g/dL (13.5-17.5); Nucleated Red Blood Cells % 0.0 %
[2024-11-24 07:30] LABS: Hematocrit 21.3 % (41.0-53.0); Mean Corpuscular Hemoglobin 28.1 pg (28.0-32.0); Mean Corpuscular Volume 83.4 fL (80.0-100.0)
--- NOTE | 2024-11-24 08:36 | DVHPN2 ---
Subjective Date Seen: Nov 24, 2024 Post op day Post op day: 2 Patient reports: No new complaints Nursing reports: No new complaints General: Normal HNT: Normal Cardiovascular: Normal Respiratory: Normal Gastrointestinal: Abdominal Pain Musculoskeletal: Normal Objective Vitals Vital Sign Date Time Temp Pulse Resp B/P (MAP) Pulse Ox O2 Delivery O2 Flow Rate FiO2 11/24/24 08:00 117 93 Nasal Cannula* 3 32 11/24/24 08:00 22 11/24/24 06:30 114/65 (81) 11/24/24 04:00 100.2 100.2 Total Intake and Output 11/23/24 11/23/24 11/24/24 15:00 23:00 07:00 Intake Total 1078 ml 1028 ml 1128 ml Output Total 880 ml 1275 ml Balance 1078 ml 148 ml -147 ml Medications Current Medications Medications Dose Ordered Sig/Edis Route Start Time Stop Time Status Last Admin Dose Admin Acetaminophen 650 mg Q6HPRN PRN PO 11/11/24 23:45 11/21/24 21:58 650 MG Piperacillin Sod/ Tazobactam Sod 100 ml @ 25 mls/hr Q8HR IV 11/12/24 06:00 UNV Ondansetron HCl 4 mg Q4HPRN PRN IV 11/12/24 07:45 11/24/24 04:01 4 MG Pantoprazole Sodium 40 mg DAILY IV 11/13/24 10:00 11/23/24 10:34 40 MG Morphine Sulfate 2 mg Q4HPRN PRN IV 11/12/24 16:45 11/24/24 04:12 2 MG Vancomycin HCl 300 ml @ 200 mls/hr Q12H IV 11/13/24 15:00 UNV Dextrose 50 ml UD IV 11/15/24 12:00 Sodium Chloride 10 ml QSHIFT@10,22 IV 11/15/24 22:00 11/23/24 21:57 10 ML Diagnostic Test (Pha) 1 strip Q6HR 11/15/24 18:00 11/24/24 06:05 1 STRIP Insulin Human Regular FOLLOW SLIDING SCALE Q6HR SC 11/15/24 18:00 11/24/24 06:06 2 UNITS Hydralazine HCl 10 mg Q6HP PRN IV 11/16/24 15:45 11/16/24 16:13 10 MG Piperacillin Sod/ Tazobactam Sod 100 ml @ 25 mls/hr Q6H IV 11/18/24 01:00 11/24/24 06:07 25 MLS/HR Fat Emulsion Intravenous 200 ml/Sodium Chloride 80 meq/ Sodium Acetate 40 meq/Potassium Chloride 40 meq/ Potassium Phosphate 22 meq/ Calcium Gluconate 2.3 meq/Magnesium Sulfate 8 meq/ Multivitamins 10 ml/Chromium/ Copper/Manganese/ Zinc 1 ml/Amino Acids/Dextrose 1,582.9462 ml @ 66 mls/hr Q24H IV 11/18/24 22:00 11/19/24 21:59 Cancel Amino Acids 0 ml @ 0 mls/hr PER PHARMACY IV 11/20/24 11:45 Amino Acids/ Electrolytes/ Dextrose 1,000 ml @ 41 mls/hr DAILY@2200 IV 11/20/24 22:00 11/23/24 21:41 41 MLS/HR Dextrose/Sodium Chloride 1,000 ml @ 75 mls/hr [id number] IV 11/22/24 18:00 11/23/24 21:57 75 MLS/HR Enoxaparin Sodium 40 mg DAILY SC 11/24/24 10:00 General: Normal, Well developed, Obese Head/Eyes: Normal Neck: Normal Lungs: Normal Cardiovascular: Normal Abdominal: Soft Skin: Other (abdominal wound) Labs and Microbiology Laboratory Tests 11/24/24 07:04 11/24/24 03:30 Test 11/24/24 03:30 Range/Units Serum Glucose 132 H 74-106 mg/dL Ass/Plan Labs and/or images reviewed: Labs reviewed by me, Image(s) reviewed by me Problem List 11/13/24feels well, abdomen non tender, ;leukocytosis, continue, as is, repeat CT scan in 48 hours 11/15/24 UNDERWENT PERCUTANEOUS DRAINAGE OF PERICOLONIC ABSCESS, ABDOMEN NON DISTENDED, NON TENDER. WILL FOLLOW 11/16/24 feels well, hungry, abdomen non tyender, derainage purulent, will irrigate, allow po intake 11/19/24 NO ABDOMINAL PAIN, NO NAUSEA, ABDOMEN NON TENDER, PICC LINE WAS REMOVED ,WILL CHECK CBC IN AM 11/20/24 await CBC tomorrow to decide on next step, abdomen non ternder but no BM, he feels "backed Up" will get gastrografin bowel x ray. 11/21/24 patient had a few bowel movements but feels worse, although his abdomen is not tender, his WBC is climbing and his CT scan looks much worse. I gave the patient the option to go back to NPO and TPN vs an operation with a colostomy, he choses to be operated on and get a colostomy as this "may be a faster way to get better". Operation, risks and complications explained in detail/ Problems(with codes): (1) Abdominal pain (2) Diverticulitis large intestine (3) Abscess of sigmoid colon due to diverticulitis Assessment/Plan 11/24/24 s/p * Exploratory laparotomy. * Segmental colon resection. * Descending colon colostomy POD#2 patient complaint of abdominal pain with movement near abdominal wound patient complaint of NG tube to uncomfortable to move with NG tube in place abdomen soft, non distended, appropitely tender hemoglobin 7.2 WBC elevated GIOVANNY with serous sanguinous fluid about 60cc per Nurse 450 output over night stoma ok, No gas Plan: Keep patient in ICU do not Down grade Discontinue NGT (strict NPO) GIOVANNY to Bulb suction 1 unit packed cells today Physical therapy Plan discussed with Dr. Zacarias and agrees Prognosis: Good Plan discussed with patient, Dr. Zacarias Visit Coding Surgery Date of Service if different f: Nov 24, 2024 Billing Provider: DANA ZACARIAS MD Surgery Visit Codes: [id number] INP/OBS CARE(HIGH) ASHLEY DUONG NP Nov 24, 2024 08:36
--- NOTE | 2024-11-24 08:57 | DVHPN2 ---
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 General Appearance: Alert, Oriented X3, Cooperative, mild distress HEENT: Atraumatic, PERRLA Lungs: Clear to auscultation, Normal air movement, Other (Nasal cannula at 4 L/min) Cardiovascular: Normal S1, Normal S2, Other (Sinus tachycardia) Abdomen: Other (GIOVANNY with serosanguineous fluid.) Genitourinary: No Apparent Abnormalities (Hernandez catheter) Musculoskeletal: Normal sensory function, Normal motor function Neuro: Normal gait, Normal speech, Sensation intact, Cranial nerves 3-12 NL Skin: Dry, Intact Psych/Mental Status: Mental status NL, Mood NL Medications Current Medications Medications Dose Ordered Sig/Edis Route Start Time Stop Time Status Last Admin Dose Admin Acetaminophen 650 mg Q6HPRN PRN PO 11/11/24 23:45 11/21/24 21:58 650 MG Piperacillin Sod/ Tazobactam Sod 100 ml @ 25 mls/hr Q8HR IV 11/12/24 06:00 UNV Ondansetron HCl 4 mg Q4HPRN PRN IV 11/12/24 07:45 11/24/24 04:01 4 MG Pantoprazole Sodium 40 mg DAILY IV 11/13/24 10:00 11/23/24 10:34 40 MG Morphine Sulfate 2 mg Q4HPRN PRN IV 11/12/24 16:45 11/24/24 04:12 2 MG Vancomycin HCl 300 ml @ 200 mls/hr Q12H IV 11/13/24 15:00 UNV Dextrose 50 ml UD IV 11/15/24 12:00 Sodium Chloride 10 ml QSHIFT@10,22 IV 11/15/24 22:00 11/23/24 21:57 10 ML Diagnostic Test (Pha) 1 strip Q6HR 11/15/24 18:00 11/24/24 06:05 1 STRIP Insulin Human Regular FOLLOW SLIDING SCALE Q6HR SC 11/15/24 18:00 11/24/24 06:06 2 UNITS Hydralazine HCl 10 mg Q6HP PRN IV 11/16/24 15:45 11/16/24 16:13 10 MG Piperacillin Sod/ Tazobactam Sod 100 ml @ 25 mls/hr Q6H IV 11/18/24 01:00 11/24/24 06:07 25 MLS/HR Fat Emulsion Intravenous 200 ml/Sodium Chloride 80 meq/ Sodium Acetate 40 meq/Potassium Chloride 40 meq/ Potassium Phosphate 22 meq/ Calcium Gluconate 2.3 meq/Magnesium Sulfate 8 meq/ Multivitamins 10 ml/Chromium/ Copper/Manganese/ Zinc 1 ml/Amino Acids/Dextrose 1,582.9462 ml @ 66 mls/hr Q24H IV 11/18/24 22:00 11/19/24 21:59 Cancel Amino Acids 0 ml @ 0 mls/hr PER PHARMACY IV 11/20/24 11:45 Amino Acids/ Electrolytes/ Dextrose 1,000 ml @ 41 mls/hr DAILY@2200 IV 11/20/24 22:00 11/23/24 21:41 41 MLS/HR Dextrose/Sodium Chloride 1,000 ml @ 75 mls/hr [id number] IV 11/22/24 18:00 11/23/24 21:57 75 MLS/HR Enoxaparin Sodium 40 mg DAILY SC 11/24/24 10:00 Laboratory Results Laboratory Tests 11/24/24 03:30 11/24/24 07:04 Chemistry Test 11/24/24 03:30 Albumin 2.7 g/dL (3.2-4.8) L Calcium Level 8.2 mg/dL (8.7-10.4) L Magnesium Level 2.2 mg/dL (1.6-2.6) Phosphorus Level 2.5 mg/dL (2.4-5.1) Total Protein 4.8 g/dL (5.7-8.2) L Lipid panel Test 11/24/24 03:30 Triglycerides Level 110 mg/dL (< 150) LFT Test 11/24/24 03:30 Alanine Aminotransferase (ALT) 29 U/L (7-40) Alkaline Phosphatase 68 U/L (46-116) Aspartate Amino Transferase (AST) 24 U/L (<34) Total Bilirubin 0.5 mg/dL (0.2-1.0) Urinalysis Test 11/11/24 20:50 Urine Color Yellow (Yellow) Urine Clarity Clear (Clear) Urine pH 6.0 (5.0-9.0) Urine Specific [place] 1.021 (1.001-1.035) Urine Protein 1+ (Negative) H Urine Ketones Negative (Negative) Urine Blood 2+ /uL (Negative) H Urine Nitrite Negative (Negative) Urine Bilirubin Negative (Negative) Urine Urobilinogen 3 mg/dL (Negative) H Urine Leukocyte Esterase Negative /uL (Negative) Urine RBC 1 /hpf (0 - 3) Urine Microscopic WBC 6 /HPF (0-3) H Urine Squamous Epithelial Cells None seen /hpf (<5) Urine Bacteria None seen /hpf (None Seen) Urine Mucus Few (None Seen) Urine Glucose 1+ mg/dL (Normal) H Microbiology Microbiology Date/Time Source Procedure Growth Status 11/22/24 10:15 Abdomen Gram Stain - Final Resulted 11/22/24 10:15 Abdomen Anaerobic Culture - Preliminary Resulted 11/22/24 10:15 Aerobic Culture - Preliminary Escherichia coli Resulted 11/18/24 10:20 Voided Urine Urine Culture - Final Complete 11/18/24 09:45 Blood Blood Culture - Final NO GROWTH AFTER 5 DAYS OF INCUBATION. Complete 11/15/24 13:15 Aspirate Gram Stain - Final Complete 11/15/24 13:15 Body Fluid Culture - Final Escherichia coli Complete Labs and/or images reviewed: Labs reviewed by me, Image(s) reviewed by me Assessment/Plan Assessment/Plan Impression: -severe sepsis secondary to perforated diverticulitis -obesity -hypokalemia -hyponatremia -right upper extremity DVT Plan: Events: Postop day two ex lap with colostomy creation for perforated diverticulum. Patient now with hemoglobin 7.2. Continues to have tachycardia. -continue Zosyn -continue PPN -continue current IV fluids. -PPI -pain management -out of bed as tolerated, physical therapy -incentive spirometer -hold anticoagulation given decreasing hemoglobin and increase GIOVANNY output with serosanguineous drainage -transfuse 1 unit PRBC -repeat labs in a.m. Critical care time spent with patient discussing and formulating plan of care: 40 minutes. This does not include time spent performing procedures. This medical document was created using an electronic medical record system with [employer] dictation system. Although this document has been carefully reviewed, there may still be some phonetic and typographical errors. These areas are purely typographical due to imperfections of the software programs, and do not reflect any compromise in the patient's medical care. Plan discussed with: Patient, Other (RN) My Orders Orders - SANDRA GOODMAN NP Procedure Category Date Status Time Chest Xray 1 View XY 11/23/24 Resulted 09:37 Basic Metabolic Panel LAB 11/25/24 Verified 05:00 Basic Metabolic Panel LAB 11/26/24 Verified 05:00 Communication Order ORDERS 11/23/24 Transmitted 09:47 Pt Request For Service PT 11/23/24 Logged 09:47 Oob To Chair PETE 11/23/24 In Process 09:47 Incentive Spirometry ORDERS 11/23/24 Transmitted Q 1hr 09:47 Communication Order ORDERS 11/23/24 Transmitted 09:47 Clinimix Per Pharmacy PETE 11/23/24 In Process 22:00 Enoxaparin Sodium PHA 11/24/24 In Process (Lovenox) 10:00 Packedcells -Active BBK 11/24/24 Transmitted Bleeding 08:50 Date of Service: Nov 24, 2024 Billing Provider: SANDRA GOODMAN NP Common Visit Codes: [id number] CARE 30-74 MIN SANDRA GOODMAN NP Nov 24, 2024 08:56
[2024-11-24] MEDS ORDERED: ENOXAPARIN SOD 40 MG/0.4 ML SYRINGE SC SCH (10:00)
[2024-11-25] VITALS (54 sets, daily range): BP systolic 117–182; BP diastolic 59–110; PULSE 92–134; RESP 15–34; TEMP 98.3–99.3; O2SAT 88–98
[2024-11-25 04:15] LABS: Hematocrit 27.4 % (41.0-53.0); Hemoglobin 9.3 g/dL (13.5-17.5); Mean Corpuscular Hemoglobin 28.7 pg (28.0-32.0); Mean Corpuscular Volume 84.8 fL (80.0-100.0)
[2024-11-25 04:36] LABS: Alanine Aminotransferase 37 U/L (7-40); Albumin 3.1 g/dL (3.2-4.8); Alkaline Phosphatase 94 U/L (46-116); Anion Gap 8 (5-15); BUN/Creatinine Ratio 16.7 (10.0-20.0); Bilirubin, Total 1.2 mg/dL (0.2-1.0); Blood Urea Nitrogen 9 mg/dL (9-23); Calcium 7.9 mg/dL (8.7-10.4); Carbon Dioxide 26 mmol/L (20-31); Chloride 98 mmol/L (98-107); Glucose 123 mg/dL (74-106); Magnesium 2.2 mg/dL (1.6-2.6); Potassium 4.2 mmol/L (3.5-5.1); Sodium 132 mmol/L (136-145); Total Protein 5.4 g/dL (5.7-8.2)
[2024-11-25 05:38] LABS: Total Cells Counted 100.0 (100)
--- NOTE | 2024-11-25 07:50 | DVHPN2 ---
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 General Appearance: Alert, Oriented X3, Cooperative, mild distress HEENT: Atraumatic, PERRLA Lungs: Clear to auscultation, Normal air movement, Other (Nasal cannula at 4 L/min) Cardiovascular: Normal S1, Normal S2, Other (Sinus tachycardia) Abdomen: Other (Absent bowel sounds. No output from colostomy. GIOVANNY with minimal serosanguineous drainage) Genitourinary: No Apparent Abnormalities (Hernandez catheter) Musculoskeletal: Normal sensory function, Normal motor function Neuro: Normal gait, Normal speech, Sensation intact, Cranial nerves 3-12 NL Skin: Dry, Intact Psych/Mental Status: Mental status NL, Mood NL Medications Current Medications Medications Dose Ordered Sig/Edis Route Start Time Stop Time Status Last Admin Dose Admin Acetaminophen 650 mg Q6HPRN PRN PO 11/11/24 23:45 11/21/24 21:58 650 MG Piperacillin Sod/ Tazobactam Sod 100 ml @ 25 mls/hr Q8HR IV 11/12/24 06:00 UNV Ondansetron HCl 4 mg Q4HPRN PRN IV 11/12/24 07:45 11/25/24 06:32 4 MG Pantoprazole Sodium 40 mg DAILY IV 11/13/24 10:00 11/24/24 09:10 40 MG Morphine Sulfate 2 mg Q4HPRN PRN IV 11/12/24 16:45 11/25/24 00:24 2 MG Vancomycin HCl 300 ml @ 200 mls/hr Q12H IV 11/13/24 15:00 UNV Dextrose 50 ml UD IV 11/15/24 12:00 Sodium Chloride 10 ml QSHIFT@10,22 IV 11/15/24 22:00 11/24/24 21:38 10 ML Diagnostic Test (Pha) 1 strip Q6HR 11/15/24 18:00 11/25/24 06:00 1 STRIP Insulin Human Regular FOLLOW SLIDING SCALE Q6HR SC 11/15/24 18:00 11/25/24 06:00 2 UNITS Hydralazine HCl 10 mg Q6HP PRN IV 11/16/24 15:45 11/16/24 16:13 10 MG Fat Emulsion Intravenous 200 ml/Sodium Chloride 80 meq/ Sodium Acetate 40 meq/Potassium Chloride 40 meq/ Potassium Phosphate 22 meq/ Calcium Gluconate 2.3 meq/Magnesium Sulfate 8 meq/ Multivitamins 10 ml/Chromium/ Copper/Manganese/ Zinc 1 ml/Amino Acids/Dextrose 1,582.9462 ml @ 66 mls/hr Q24H IV 11/18/24 22:00 11/19/24 21:59 Cancel Amino Acids 0 ml @ 0 mls/hr PER PHARMACY IV 11/20/24 11:45 Amino Acids/ Electrolytes/ Dextrose 1,000 ml @ 41 mls/hr DAILY@2200 IV 11/20/24 22:00 11/24/24 21:38 41 MLS/HR Dextrose/Sodium Chloride 1,000 ml @ 75 mls/hr [id number] IV 11/22/24 18:00 11/24/24 23:18 75 MLS/HR Ceftriaxone Sodium/Dextrose 50 ml @ 50 mls/hr DAILY IV 11/25/24 10:00 Metronidazole 100 ml @ 100 mls/hr Q8HR IV 11/25/24 14:00 Laboratory Results Laboratory Tests 11/25/24 03:17 Chemistry Test 11/25/24 03:17 Albumin 3.1 g/dL (3.2-4.8) L Calcium Level 7.9 mg/dL (8.7-10.4) L Magnesium Level 2.2 mg/dL (1.6-2.6) Phosphorus Level 2.9 mg/dL (2.4-5.1) Total Protein 5.4 g/dL (5.7-8.2) L LFT Test 11/25/24 03:17 Alanine Aminotransferase (ALT) 37 U/L (7-40) Alkaline Phosphatase 94 U/L (46-116) Aspartate Amino Transferase (AST) 30 U/L (<34) Total Bilirubin 1.2 mg/dL (0.2-1.0) H Urinalysis Test 11/11/24 20:50 Urine Color Yellow (Yellow) Urine Clarity Clear (Clear) Urine pH 6.0 (5.0-9.0) Urine Specific [place] 1.021 (1.001-1.035) Urine Protein 1+ (Negative) H Urine Ketones Negative (Negative) Urine Blood 2+ /uL (Negative) H Urine Nitrite Negative (Negative) Urine Bilirubin Negative (Negative) Urine Urobilinogen 3 mg/dL (Negative) H Urine Leukocyte Esterase Negative /uL (Negative) Urine RBC 1 /hpf (0 - 3) Urine Microscopic WBC 6 /HPF (0-3) H Urine Squamous Epithelial Cells None seen /hpf (<5) Urine Bacteria None seen /hpf (None Seen) Urine Mucus Few (None Seen) Urine Glucose 1+ mg/dL (Normal) H Microbiology Microbiology Date/Time Source Procedure Growth Status 11/22/24 10:15 Abdomen Gram Stain - Final Resulted 11/22/24 10:15 Abdomen Anaerobic Culture - Preliminary Resulted 11/22/24 10:15 Aerobic Culture - Preliminary Escherichia coli Resulted 11/18/24 10:20 Voided Urine Urine Culture - Final Complete 11/18/24 09:45 Blood Blood Culture - Final NO GROWTH AFTER 5 DAYS OF INCUBATION. Complete 11/15/24 13:15 Aspirate Gram Stain - Final Complete 11/15/24 13:15 Body Fluid Culture - Final Escherichia coli Complete Labs and/or images reviewed: Labs reviewed by me, Image(s) reviewed by me Assessment/Plan Assessment/Plan Impression: -severe sepsis secondary to perforated diverticulitis -obesity -hypokalemia -hyponatremia -right upper extremity DVT Plan: Events: Patient reporting belching, abdominal distention. Denies any nausea at this time. NG tube out. H and H holding -KUB -change antibiotic therapy to ceftriaxone and Flagyl -PICC line placement, start TPN -continue current IV fluids. -PPI -pain management -out of bed as tolerated, physical therapy -incentive spirometer -hold anticoagulation given decreasing hemoglobin and increase GIOVANNY output with serosanguineous drainage -repeat labs in a.m. Critical care time spent with patient discussing and formulating plan of care: 40 minutes. This does not include time spent performing procedures. This medical document was created using an electronic medical record system with [email or web address] dictation system. Although this document has been carefully reviewed, there may still be some phonetic and typographical errors. These areas are purely typographical due to imperfections of the software programs, and do not reflect any compromise in the patient's medical care. Plan discussed with: Patient, Other (RN) My Orders Orders - SANDRA GOODMAN NP Procedure Category Date Status Time Clinimix Per Pharmacy PETE 11/24/24 In Process 22:00 Ceftriaxone 2gm/50ml PHA 11/25/24 In Process D5w (Rocephin 2gm/5 10:00 Metronidazole PHA 11/25/24 In Process 500mg/100ml (Flagyl 14:00 Complete Blood Count LAB 11/26/24 Verified 04:00 Kub Abdomen Single XY 11/25/24 Logged View 07:04 * Picc Line Consult CONS 11/25/24 Transmitted 07:05 Date of Service: Nov 25, 2024 Billing Provider: SANDRA GOODMAN NP Common Visit Codes: [id number] CARE 30-74 MIN SANDRA GOODMAN NP Nov 25, 2024 07:50
[2024-11-25] MEDS: ENOXAPARIN SOD 40 MG/0.4 ML SYRINGE SC SCH (09:30)
[2024-11-25] MEDS: cefTRIAXone 2GM/50ML D5W 50 ML IV SCH (10:28)
[2024-11-25] MEDS: LIDOCAINE 1% (LOCAL ANESTH.) PF 5ml SDV ID ONE (11:35)
[2024-11-25] MEDS ORDERED: TPN PER PHARMACY 0 ML IV SCH (12:45)
--- NOTE | 2024-11-25 17:01 | DVH ---
Procedure: XY KUB ABDOMEN SINGLE VIEW Study Date and Requested Time: 11/25/2024 04:27 PM Technique: 2 views of the abdomen and pelvis available for evaluation. History: Distended abdomen Comparison: None Findings/ Impression: Skin candace are noted overlying the right paramedian lower abdomen and pelvis with a tubular structu re extending across the right hemipelvis to the left hemipelvis and terminating over the left medial lower lung zone suggestive of recent postsurgical changes with a drainage catheter in place. Gas-filled distended small bowel loops are noted measuring up to 3.3 cm which may be due to ileus giv en recent surgery. Recommend clinical correlation. No significant fecal material within the colon. No abnormal calcifications are noted. No evidence of acute bony abnormalities.
[2024-11-25] MEDS ORDERED: APIXABAN 5 MG TAB PO SCH (22:00)
[2024-11-25] MEDS: LINEZOLID 600MG/300ML 300 ML IV SCH (22:20)
[2024-11-25] MEDS: TPN PER PHARMACY IV NR (22:20)
[2024-11-25] MEDS: SODIUM CHLOR 0.9% PF (SALINE LOCK) 10ML VIAL/SYR IV SCH (22:21)
[2024-11-26] VITALS (46 sets, daily range): BP systolic 106–174; BP diastolic 60–109; PULSE 97–126; RESP 14–34; TEMP 98.2–99.6; O2SAT 93–99
[2024-11-26 04:35] LABS: BUN/Creatinine Ratio 20.0 (10.0-20.0); Carbon Dioxide 23 mmol/L (20-31)
[2024-11-26 04:36] LABS: Magnesium 2.2 mg/dL (1.6-2.6)
[2024-11-26 04:37] LABS: Bilirubin, Total 0.9 mg/dL (0.2-1.0)
[2024-11-26 04:47] LABS: Alanine Aminotransferase 112 U/L (7-40); Albumin 3.0 g/dL (3.2-4.8); Alkaline Phosphatase 120 U/L (46-116); Blood Urea Nitrogen 9 mg/dL (9-23); Calcium 7.9 mg/dL (8.7-10.4); Glucose 128 mg/dL (74-106); Total Protein 5.2 g/dL (5.7-8.2)
[2024-11-26 04:49] LABS: Anion Gap 9 (5-15); Potassium 4.4 mmol/L (3.5-5.1)
[2024-11-26 04:59] LABS: Chloride 97 mmol/L (98-107); Hematocrit 28.2 % (41.0-53.0); Hemoglobin 9.4 g/dL (13.5-17.5); Mean Corpuscular Hemoglobin 28.6 pg (28.0-32.0); Mean Corpuscular Volume 85.4 fL (80.0-100.0); Sodium 129 mmol/L (136-145)
[2024-11-26 05:53] LABS: Giant Platelets Few; Total Cells Counted 100.0 (100)
--- NOTE | 2024-11-26 08:59 | DVHPN2 ---
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 General Appearance: Alert, Oriented X3, Cooperative, mild distress HEENT: Atraumatic, PERRLA Lungs: Clear to auscultation, Normal air movement, Other (Nasal cannula at 4 L/min) Cardiovascular: Normal S1, Normal S2, Other (Sinus tachycardia) Abdomen: Other (Absent bowel sounds. No output from colostomy. GIOVANNY with minimal serosanguineous drainage) Genitourinary: No Apparent Abnormalities (Hernandez catheter) Musculoskeletal: Normal sensory function, Normal motor function Neuro: Normal gait, Normal speech, Sensation intact, Cranial nerves 3-12 NL Skin: Dry, Intact Psych/Mental Status: Mental status NL, Mood NL Medications Current Medications Medications Dose Ordered Sig/Edis Route Start Time Stop Time Status Last Admin Dose Admin Acetaminophen 650 mg Q6HPRN PRN PO 11/11/24 23:45 11/21/24 21:58 650 MG Piperacillin Sod/ Tazobactam Sod 100 ml @ 25 mls/hr Q8HR IV 11/12/24 06:00 UNV Ondansetron HCl 4 mg Q4HPRN PRN IV 11/12/24 07:45 11/25/24 06:32 4 MG Pantoprazole Sodium 40 mg DAILY IV 11/13/24 10:00 11/25/24 09:29 40 MG Morphine Sulfate 2 mg Q4HPRN PRN IV 11/12/24 16:45 11/25/24 23:38 2 MG Vancomycin HCl 300 ml @ 200 mls/hr Q12H IV 11/13/24 15:00 UNV Dextrose 50 ml UD IV 11/15/24 12:00 Diagnostic Test (Pha) 1 strip Q6HR 11/15/24 18:00 11/26/24 06:02 1 STRIP Insulin Human Regular FOLLOW SLIDING SCALE Q6HR SC 11/15/24 18:00 11/26/24 06:02 2 UNITS Hydralazine HCl 10 mg Q6HP PRN IV 11/16/24 15:45 11/25/24 09:31 10 MG Fat Emulsion Intravenous 200 ml/Sodium Chloride 80 meq/ Sodium Acetate 40 meq/Potassium Chloride 40 meq/ Potassium Phosphate 22 meq/ Calcium Gluconate 2.3 meq/Magnesium Sulfate 8 meq/ Multivitamins 10 ml/Chromium/ Copper/Manganese/ Zinc 1 ml/Amino Acids/Dextrose 1,582.9462 ml @ 66 mls/hr Q24H IV 11/18/24 22:00 11/19/24 21:59 Cancel Dextrose/Sodium Chloride 1,000 ml @ 75 mls/hr [id number] IV 11/22/24 18:00 11/26/24 03:40 75 MLS/HR Ceftriaxone Sodium/Dextrose 50 ml @ 50 mls/hr DAILY IV 11/25/24 10:00 11/25/24 10:28 50 MLS/HR Metronidazole 100 ml @ 100 mls/hr Q8HR IV 11/25/24 14:00 11/26/24 05:48 100 MLS/HR Enoxaparin Sodium 40 mg DAILY SC 11/25/24 10:00 11/25/24 09:30 40 MG Sodium Chloride 10 ml QSHIFT@10,22 IV 11/25/24 22:00 11/25/24 22:21 10 ML Amino Acids 0 ml @ 0 mls/hr PER PHARMACY IV 11/25/24 12:45 Fat Emulsion Intravenous 100 ml/Sodium Chloride 60 meq/ Potassium Chloride 20 meq/ Calcium Gluconate 4.65 meq/ Magnesium Sulfate 8 meq/ Multivitamins 10 ml/Chromium/ Copper/Manganese/ Zinc 1 ml/Amino Acids/Dextrose 1,148 ml @ 48 mls/hr [id number] IV 11/25/24 22:00 11/26/24 21:59 11/25/24 22:20 48 MLS/HR Linezolid 300 ml @ 150 mls/hr Q12HR IV 11/25/24 22:00 11/25/24 22:20 150 MLS/HR Laboratory Results Laboratory Tests 11/26/24 03:20 Chemistry Test 11/26/24 03:20 Albumin 3.0 g/dL (3.2-4.8) L Calcium Level 7.9 mg/dL (8.7-10.4) L Magnesium Level 2.2 mg/dL (1.6-2.6) Phosphorus Level 2.8 mg/dL (2.4-5.1) Total Protein 5.2 g/dL (5.7-8.2) L LFT Test 11/26/24 03:20 Alanine Aminotransferase (ALT) 112 U/L (7-40) H Alkaline Phosphatase 120 U/L (46-116) H Aspartate Amino Transferase (AST) 93 U/L (<34) H Total Bilirubin 0.9 mg/dL (0.2-1.0) Urinalysis Test 11/11/24 20:50 Urine Color Yellow (Yellow) Urine Clarity Clear (Clear) Urine pH 6.0 (5.0-9.0) Urine Specific [place] 1.021 (1.001-1.035) Urine Protein 1+ (Negative) H Urine Ketones Negative (Negative) Urine Blood 2+ /uL (Negative) H Urine Nitrite Negative (Negative) Urine Bilirubin Negative (Negative) Urine Urobilinogen 3 mg/dL (Negative) H Urine Leukocyte Esterase Negative /uL (Negative) Urine RBC 1 /hpf (0 - 3) Urine Microscopic WBC 6 /HPF (0-3) H Urine Squamous Epithelial Cells None seen /hpf (<5) Urine Bacteria None seen /hpf (None Seen) Urine Mucus Few (None Seen) Urine Glucose 1+ mg/dL (Normal) H Microbiology Microbiology Date/Time Source Procedure Growth Status 11/22/24 10:15 Abdomen Gram Stain - Final Resulted 11/22/24 10:15 Abdomen Anaerobic Culture - Preliminary Resulted 11/22/24 10:15 Aerobic Culture - Preliminary Escherichia coli Enterococcus faecium - VRE Resulted 11/18/24 10:20 Voided Urine Urine Culture - Final Complete 11/18/24 09:45 Blood Blood Culture - Final NO GROWTH AFTER 5 DAYS OF INCUBATION. Complete 11/15/24 13:15 Aspirate Gram Stain - Final Complete 11/15/24 13:15 Body Fluid Culture - Final Escherichia coli Complete Labs and/or images reviewed: Labs reviewed by me, Image(s) reviewed by me Assessment/Plan Assessment/Plan Impression: -severe sepsis secondary to perforated diverticulitis -obesity -hypokalemia -hyponatremia -right upper extremity DVT Plan: Events: Patient noted to have VRE in wound drainage. Started on Zyvox yesterday. KUB also reveals some small bowel and gastric distention. Patient states that his belching and abdominal distention has improved today. Discussed with surgery. -continue antibiotic therapy with ceftriaxone, Flagyl, Zyvox -continue TPN until patient takes oral intake per surgery -discontinue IV fluids given new onset hyponatremia, probably hypervolemia induced -PPI -pain management -out of bed as tolerated, physical therapy -incentive spirometer -H and H holding, start anticoagulation -repeat labs in a.m. Critical care time spent with patient discussing and formulating plan of care: 40 minutes. This does not include time spent performing procedures. This medical document was created using an electronic medical record system with [employer] dictation system. Although this document has been carefully reviewed, there may still be some phonetic and typographical errors. These areas are purely typographical due to imperfections of the software programs, and do not reflect any compromise in the patient's medical care. Plan discussed with: Patient, Other My Orders Orders - SANDRA GOODMAN NP Procedure Category Date Status Time Change Dressing Prn PETE 11/25/24 In Process 12:14 Sodium Chloride Lock PHA 11/25/24 In Process (Saline Lock Ns) 22:00 Do [address]c For [facility] 11/25/24 In Process Blood Cult 12:[address] [facility] 11/25/24 In Process Picc 12:[address] [facility] 11/25/24 In Process 12:[address] [facility] 11/25/24 In Process Q7 Days 12:14 Us Guided Vascular US 11/25/24 Taken Access 12:14 Tpn Per Pharmacy PHA 11/25/24 In Process 12:45 Amino Acid PHA 11/25/24 In Process Infusion... W/Fat 22:00 Tpn Per Pharmacy PETE 11/25/24 In Process 22:00 Linezolid 600mg/300ml PHA 11/25/24 In Process (Zyvox) 22:00 Date of Service: Nov 26, 2024 Billing Provider: SANDRA GOODMAN NP Common Visit Codes: [id number] CARE 30-74 MIN SANDRA GOODMAN NP Nov 26, 2024 08:59
--- NOTE | 2024-11-26 09:34 | DVHPN2 ---
Subjective Date Seen: Nov 26, 2024 Post op day Post op day: 4 Patient reports: No new complaints Nursing reports: No new complaints General: Normal HNT: Normal Cardiovascular: Normal Respiratory: Normal Gastrointestinal: Abdominal Pain Musculoskeletal: Normal Objective Vitals Vital Sign Date Time Temp Pulse Resp B/P (MAP) Pulse Ox O2 Delivery O2 Flow Rate FiO2 11/26/24 08:30 112 28 149/75 (99) 97 11/26/24 08:00 98.3 98.3 11/26/24 08:00 Nasal Cannula* 3 32 Total Intake and Output 11/25/24 11/25/24 11/26/24 15:00 23:00 07:00 Intake Total 1178 ml 1094 ml 1239 ml Output Total 800 ml 665 ml Balance 1178 ml 294 ml 574 ml Medications Current Medications Medications Dose Ordered Sig/Deis Route Start Time Stop Time Status Last Admin Dose Admin Acetaminophen 650 mg Q6HPRN PRN PO 11/11/24 23:45 11/21/24 21:58 650 MG Piperacillin Sod/ Tazobactam Sod 100 ml @ 25 mls/hr Q8HR IV 11/12/24 06:00 UNV Ondansetron HCl 4 mg Q4HPRN PRN IV 11/12/24 07:45 11/25/24 06:32 4 MG Pantoprazole Sodium 40 mg DAILY IV 11/13/24 10:00 11/26/24 09:22 40 MG Morphine Sulfate 2 mg Q4HPRN PRN IV 11/12/24 16:45 11/25/24 23:38 2 MG Vancomycin HCl 300 ml @ 200 mls/hr Q12H IV 11/13/24 15:00 UNV Dextrose 50 ml UD IV 11/15/24 12:00 Diagnostic Test (Pha) 1 strip Q6HR 11/15/24 18:00 11/26/24 06:02 1 STRIP Insulin Human Regular FOLLOW SLIDING SCALE Q6HR SC 11/15/24 18:00 11/26/24 06:02 2 UNITS Hydralazine HCl 10 mg Q6HP PRN IV 11/16/24 15:45 11/25/24 09:31 10 MG Fat Emulsion Intravenous 200 ml/Sodium Chloride 80 meq/ Sodium Acetate 40 meq/Potassium Chloride 40 meq/ Potassium Phosphate 22 meq/ Calcium Gluconate 2.3 meq/Magnesium Sulfate 8 meq/ Multivitamins 10 ml/Chromium/ Copper/Manganese/ Zinc 1 ml/Amino Acids/Dextrose 1,582.9462 ml @ 66 mls/hr Q24H IV 11/18/24 22:00 11/19/24 21:59 Cancel Ceftriaxone Sodium/Dextrose 50 ml @ 50 mls/hr DAILY IV 11/25/24 10:00 11/26/24 09:22 50 MLS/HR Metronidazole 100 ml @ 100 mls/hr Q8HR IV 11/25/24 14:00 11/26/24 05:48 100 MLS/HR Enoxaparin Sodium 40 mg DAILY SC 11/25/24 10:00 11/26/24 09:23 40 MG Sodium Chloride 10 ml QSHIFT@10,22 IV 11/25/24 22:00 11/26/24 09:22 10 ML Amino Acids 0 ml @ 0 mls/hr PER PHARMACY IV 11/25/24 12:45 Fat Emulsion Intravenous 100 ml/Sodium Chloride 60 meq/ Potassium Chloride 20 meq/ Calcium Gluconate 4.65 meq/ Magnesium Sulfate 8 meq/ Multivitamins 10 ml/Chromium/ Copper/Manganese/ Zinc 1 ml/Amino Acids/Dextrose 1,148 ml @ 48 mls/hr [id number] IV 11/25/24 22:00 11/26/24 21:59 11/25/24 22:20 48 MLS/HR Linezolid 300 ml @ 150 mls/hr Q12HR IV 11/25/24 22:00 11/26/24 09:22 150 MLS/HR General: Normal, Well developed, Obese Head/Eyes: Normal Neck: Normal Lungs: Normal Cardiovascular: Normal Abdominal: Soft Skin: Other (abdominal wound) Labs and Microbiology Laboratory Tests 11/26/24 03:20 Test 11/26/24 03:20 Range/Units Serum Glucose 128 H 74-106 mg/dL Ass/Plan Labs and/or images reviewed: Labs reviewed by me, Image(s) reviewed by me Problem List 11/13/24feels well, abdomen non tender, ;leukocytosis, continue, as is, repeat CT scan in 48 hours 11/15/24 UNDERWENT PERCUTANEOUS DRAINAGE OF PERICOLONIC ABSCESS, ABDOMEN NON DISTENDED, NON TENDER. WILL FOLLOW 11/16/24 feels well, hungry, abdomen non tyender, derainage purulent, will irrigate, allow po intake 11/19/24 NO ABDOMINAL PAIN, NO NAUSEA, ABDOMEN NON TENDER, PICC LINE WAS REMOVED ,WILL CHECK CBC IN AM 11/20/24 await CBC tomorrow to decide on next step, abdomen non ternder but no BM, he feels "backed Up" will get gastrografin bowel x ray. 11/21/24 patient had a few bowel movements but feels worse, although his abdomen is not tender, his WBC is climbing and his CT scan looks much worse. I gave the patient the option to go back to NPO and TPN vs an operation with a colostomy, he choses to be operated on and get a colostomy as this "may be a faster way to get better". Operation, risks and complications explained in detail/ Assessment/Plan 11/24/24 s/p * Exploratory laparotomy. * Segmental colon resection. * Descending colon colostomy POD#2 patient complaint of abdominal pain with movement near abdominal wound patient complaint of NG tube to uncomfortable to move with NG tube in place abdomen soft, non distended, appropitely tender hemoglobin 7.2 WBC elevated GIOVANNY with serous sanguinous fluid about 60cc per Nurse 450 output over night stoma ok, No gas Plan: Keep patient in ICU do not Down grade Discontinue NGT (strict NPO) GIOVANNY to Bulb suction 1 unit packed cells today Physical therapy Plan discussed with Dr. Zacarias and agrees 11/26/24 s/p * Exploratory laparotomy. * Segmental colon resection. * Descending colon colostomy POD#4 patient states feels better today , no belching feels bubles in his gut no gas in bag, stoma ok wound with purulent drainage , removed candace for wound drainage abdomen soft, non distended Plan: keep patient NPO wound open , use ABD pad loose over wound patient to ambulate around the unit GIOVANNY bulb to suction continue with IV antibiotics and hydration Prognosis: Good Plan discussed with patient, Dr. Zacarias Visit Coding Surgery Date of Service if different f: Nov 26, 2024 Billing Provider: DANA ZACARIAS MD Surgery Visit Codes: [id number] INP/OBS CARE(HIGH) ASHLEY DUONG NP Nov 26, 2024 09:34
--- NOTE | 2024-11-26 18:17 | DVHPN2 ---
Progress Note Date Seen: Nov 26, 2024 Resident Creating Document: JULIA MARES RESIDENT Medical Necessity Reason Pt with a Central, PICC or Fol: No Subjective Review of Systems Postop day 4. exploratory laparotomy with partial sigmoid resection ;colostomy for perforated diverticulitis with abscess Leukocytosis is improving and patient is trying incentive spirometry Colostomy tube started having Stool output today H&H stable Patient NPO On TPN Surgical GIOVANNY tube draining decreasing Abdominal past culture revealed E coli and Enterococcus faecalis VRE Objective vital signs Vital Sign Date Time Temp Pulse Resp B/P (MAP) Pulse Ox O2 Delivery O2 Flow Rate FiO2 11/26/24 18:00 109 11/26/24 18:00 17 93 Nasal Cannula* 1 24 11/26/24 17:29 141/64 11/26/24 16:00 98.3 98.3 Total Intake and Output 11/25/24 11/25/24 11/26/24 15:00 23:00 07:00 Intake Total 1178 ml 1094 ml 1239 ml Output Total 800 ml 665 ml Balance 1178 ml 294 ml 574 ml medications Current Medications Medications Dose Ordered Sig/Edis Route Start Time Stop Time Status Last Admin Dose Admin Acetaminophen 650 mg Q6HPRN PRN PO 11/11/24 23:45 11/21/24 21:58 650 MG Piperacillin Sod/ Tazobactam Sod 100 ml @ 25 mls/hr Q8HR IV 11/12/24 06:00 UNV Ondansetron HCl 4 mg Q4HPRN PRN IV 11/12/24 07:45 11/25/24 06:32 4 MG Pantoprazole Sodium 40 mg DAILY IV 11/13/24 10:00 11/26/24 09:22 40 MG Morphine Sulfate 2 mg Q4HPRN PRN IV 11/12/24 16:45 11/26/24 17:29 2 MG Vancomycin HCl 300 ml @ 200 mls/hr Q12H IV 11/13/24 15:00 UNV Dextrose 50 ml UD IV 11/15/24 12:00 Diagnostic Test (Pha) 1 strip Q6HR 11/15/24 18:00 11/26/24 17:24 1 STRIP Insulin Human Regular FOLLOW SLIDING SCALE Q6HR SC 11/15/24 18:00 11/26/24 11:39 4 UNITS Hydralazine HCl 10 mg Q6HP PRN IV 11/16/24 15:45 11/25/24 09:31 10 MG Fat Emulsion Intravenous 200 ml/Sodium Chloride 80 meq/ Sodium Acetate 40 meq/Potassium Chloride 40 meq/ Potassium Phosphate 22 meq/ Calcium Gluconate 2.3 meq/Magnesium Sulfate 8 meq/ Multivitamins 10 ml/Chromium/ Copper/Manganese/ Zinc 1 ml/Amino Acids/Dextrose 1,582.9462 ml @ 66 mls/hr Q24H IV 11/18/24 22:00 11/19/24 21:59 Cancel Ceftriaxone Sodium/Dextrose 50 ml @ 50 mls/hr DAILY IV 11/25/24 10:00 11/26/24 09:22 50 MLS/HR Metronidazole 100 ml @ 100 mls/hr Q8HR IV 11/25/24 14:00 11/26/24 13:48 100 MLS/HR Enoxaparin Sodium 40 mg DAILY SC 11/25/24 10:00 11/26/24 09:23 40 MG Sodium Chloride 10 ml QSHIFT@10,22 IV 11/25/24 22:00 11/26/24 09:22 10 ML Amino Acids 0 ml @ 0 mls/hr PER PHARMACY IV 11/25/24 12:45 Fat Emulsion Intravenous 100 ml/Sodium Chloride 60 meq/ Potassium Chloride 20 meq/ Calcium Gluconate 4.65 meq/ Magnesium Sulfate 8 meq/ Multivitamins 10 ml/Chromium/ Copper/Manganese/ Zinc 1 ml/Amino Acids/Dextrose 1,148 ml @ 48 mls/hr [id number] IV 11/25/24 22:00 11/26/24 21:59 11/25/24 22:20 48 MLS/HR Linezolid 300 ml @ 150 mls/hr Q12HR IV 11/25/24 22:00 11/26/24 09:22 150 MLS/HR Fat Emulsion Intravenous 150 ml/Sodium Chloride 80 meq/ Sodium Acetate 20 meq/Sodium Phosphate 20 meq/ Potassium Chloride 20 meq/ Calcium Gluconate 4.65 meq/ Magnesium Sulfate 8 meq/ Multivitamins 10 ml/Chromium/ Copper/Manganese/ Zinc 1 ml/Amino Acids/Dextrose 1,518 ml @ 63 mls/hr Q24H6M IV 11/26/24 22:00 11/27/24 21:59 laboratory and microbiology Laboratory Tests 11/26/24 03:20 Test 11/26/24 03:20 Range/Units Serum Glucose 128 H 74-106 mg/dL Microbiology Date/Time Source Procedure Growth Status 11/22/24 10:15 Abdomen Gram Stain - Final Resulted 11/22/24 10:15 Abdomen Anaerobic Culture - Preliminary Resulted 11/22/24 10:15 Aerobic Culture - Preliminary Escherichia coli Enterococcus faecium - VRE Resulted 11/18/24 10:20 Voided Urine Urine Culture - Final Complete 11/18/24 09:45 Blood Blood Culture - Final NO GROWTH AFTER 5 DAYS OF INCUBATION. Complete 11/15/24 13:15 Aspirate Gram Stain - Final Complete 11/15/24 13:15 Body Fluid Culture - Final Escherichia coli Complete Problem List/Assessment/Plan Problem List/Assessment/Plan Assessment and plan Problems(with codes): (1) Diverticulitis large intestine (2) Abnormal finding on GI tract imaging (3) Abscess of sigmoid colon due to diverticulitis (4) Leukocytosis Prognosis Plan NPO Continue IV Clinimix as prescribed Continue broad spectrum IV antibiotics Supportive care Incentive spirometry Surgical input appreciated On DVT prophylaxis On pantoprazole IV 40 mg daily Plan discussed with Dr. Emilee Sharma , nursing staff, Total time spent on patient evaluation, chart review, assessment and plan, discussion discussion >35 minutes Plan discussed with: Other (RN) Dietary Evaluation Review Comments: To meet at least 75% ofpt's needs, recommend TPN kcal to be increased to 1500-2000kcal range and protein to be increased to 80-90g/d. Expected Outcomes/Goals: Pt will experience a gradual wt loss at this kcal level, yet, the appropriated nutrition support of protein and kcal can enhance pt's GI perforation healing process, and help him regain normal GI functionality JULIA MARES RESIDENT Nov 26, 2024 18:17
[2024-11-26] MEDS: TPN PER PHARMACY IV NR (21:24)
[2024-11-27] VITALS (25 sets, daily range): BP systolic 115–148; BP diastolic 56–74; PULSE 102–134; RESP 16–43; TEMP 97.9–99.7; O2SAT 82–98
[2024-11-27 06:07] LABS: Alkaline Phosphatase 93 U/L (46-116); Anion Gap 8 (5-15); BUN/Creatinine Ratio 22.7 (10.0-20.0); Blood Urea Nitrogen 10 mg/dL (9-23); Carbon Dioxide 25 mmol/L (20-31); Chloride 100 mmol/L (98-107); Magnesium 2.1 mg/dL (1.6-2.6); Potassium 4.7 mmol/L (3.5-5.1)
[2024-11-27 06:08] LABS: Alanine Aminotransferase 82 U/L (7-40); Albumin 2.9 g/dL (3.2-4.8); Bilirubin, Total 0.8 mg/dL (0.2-1.0); Calcium 8.1 mg/dL (8.7-10.4); Glucose 131 mg/dL (74-106); Sodium 133 mmol/L (136-145); Total Protein 4.9 g/dL (5.7-8.2)
--- NOTE | 2024-11-27 11:16 | DVHPN2 ---
Progress Note Date Seen: Nov 27, 2024 Medical Necessity Reason Pt with a Central, PICC or Fol: No Objective vital signs Vital Sign Date Time Temp Pulse Resp B/P (MAP) Pulse Ox O2 Delivery O2 Flow Rate FiO2 11/27/24 10:24 119 27 128/68 11/27/24 06:00 93 11/27/24 06:00 Nasal Cannula* 1 24 11/27/24 04:00 98.5 98.5 Total Intake and Output 11/26/24 11/26/24 11/27/24 15:00 23:00 07:00 Intake Total 909 ml 466 ml 741 ml Output Total 855 ml 790 ml Balance 909 ml -389 ml -49 ml medications Current Medications Medications Dose Ordered Sig/Edis Route Start Time Stop Time Status Last Admin Dose Admin Acetaminophen 650 mg Q6HPRN PRN PO 11/11/24 23:45 11/21/24 21:58 650 MG Piperacillin Sod/ Tazobactam Sod 100 ml @ 25 mls/hr Q8HR IV 11/12/24 06:00 UNV Ondansetron HCl 4 mg Q4HPRN PRN IV 11/12/24 07:45 11/25/24 06:32 4 MG Pantoprazole Sodium 40 mg DAILY IV 11/13/24 10:00 11/27/24 09:47 40 MG Morphine Sulfate 2 mg Q4HPRN PRN IV 11/12/24 16:45 11/27/24 10:24 2 MG Vancomycin HCl 300 ml @ 200 mls/hr Q12H IV 11/13/24 15:00 UNV Dextrose 50 ml UD IV 11/15/24 12:00 Diagnostic Test (Pha) 1 strip Q6HR 11/15/24 18:00 11/27/24 06:15 1 STRIP Insulin Human Regular FOLLOW SLIDING SCALE Q6HR SC 11/15/24 18:00 11/27/24 06:18 2 UNITS Hydralazine HCl 10 mg Q6HP PRN IV 11/16/24 15:45 11/25/24 09:31 10 MG Fat Emulsion Intravenous 200 ml/Sodium Chloride 80 meq/ Sodium Acetate 40 meq/Potassium Chloride 40 meq/ Potassium Phosphate 22 meq/ Calcium Gluconate 2.3 meq/Magnesium Sulfate 8 meq/ Multivitamins 10 ml/Chromium/ Copper/Manganese/ Zinc 1 ml/Amino Acids/Dextrose 1,582.9462 ml @ 66 mls/hr Q24H IV 11/18/24 22:00 11/19/24 21:59 Cancel Ceftriaxone Sodium/Dextrose 50 ml @ 50 mls/hr DAILY IV 11/25/24 10:00 11/27/24 10:18 50 MLS/HR Metronidazole 100 ml @ 100 mls/hr Q8HR IV 11/25/24 14:00 11/27/24 06:15 100 MLS/HR Enoxaparin Sodium 40 mg DAILY SC 11/25/24 10:00 11/26/24 09:23 40 MG Sodium Chloride 10 ml QSHIFT@10,22 IV 11/25/24 22:00 11/27/24 09:48 10 ML Amino Acids 0 ml @ 0 mls/hr PER PHARMACY IV 11/25/24 12:45 Linezolid 300 ml @ 150 mls/hr Q12HR IV 11/25/24 22:00 11/27/24 09:47 150 MLS/HR Fat Emulsion Intravenous 150 ml/Sodium Chloride 80 meq/ Sodium Acetate 20 meq/Sodium Phosphate 20 meq/ Potassium Chloride 20 meq/ Calcium Gluconate 4.65 meq/ Magnesium Sulfate 8 meq/ Multivitamins 10 ml/Chromium/ Copper/Manganese/ Zinc 1 ml/Amino Acids/Dextrose 1,518 ml @ 63 mls/hr Q24H6M IV 11/26/24 22:00 11/27/24 21:59 11/26/24 21:24 63 MLS/HR Fat Emulsion Intravenous 150 ml/Sodium Chloride 100 meq/ Sodium Acetate 10 meq/Sodium Phosphate 30 meq/ Potassium Chloride 10 meq/ Calcium Gluconate 2.325 meq/ Magnesium Sulfate 10 meq/ Multivitamins 10 ml/Chromium/ Copper/Manganese/ Zinc 1 ml/Amino Acids/Dextrose 1,611 ml @ 67 mls/hr Q24H3M IV 11/27/24 22:00 11/28/24 21:59 laboratory and microbiology Laboratory Tests 11/27/24 05:07 Test 11/27/24 05:07 Range/Units Serum Glucose 131 H 74-106 mg/dL Problem List/Assessment/Plan Problem List/Assessment/Plan 11/13/24feels well, abdomen non tender, ;leukocytosis, continue, as is, repeat CT scan in 48 hours 11/15/24 UNDERWENT PERCUTANEOUS DRAINAGE OF PERICOLONIC ABSCESS, ABDOMEN NON DISTENDED, NON TENDER. WILL FOLLOW 11/16/24 feels well, hungry, abdomen non tyender, derainage purulent, will irrigate, allow po intake 11/19/24 NO ABDOMINAL PAIN, NO NAUSEA, ABDOMEN NON TENDER, PICC LINE WAS REMOVED ,WILL CHECK CBC IN AM 11/20/24 await CBC tomorrow to decide on next step, abdomen non ternder but no BM, he feels "backed Up" will get gastrografin bowel x ray. 11/21/24 patient had a few bowel movements but feels worse, although his abdomen is not tender, his WBC is climbing and his CT scan looks much worse. I gave the patient the option to go back to NPO and TPN vs an operation with a colostomy, he choses to be operated on and get a colostomy as this "may be a faster way to get better". Operation, risks and complications explained in detail/ 11/27/24 feels better, no flatus in stoma bag, stoma viable,wound with some infection at inferior aspect of infraumbilical extent, abdomen appropriately tender, will allow ice chips and sips of water, must be out iof bed q 4 hours Plan discussed with: Patient Dietary Evaluation Review Comments: To meet at least 75% ofpt's needs, recommend TPN kcal to be increased to 1500-2000kcal range and protein to be increased to 80-90g/d. Expected Outcomes/Goals: Pt will experience a gradual wt loss at this kcal level, yet, the appropriated nutrition support of protein and kcal can enhance pt's GI perforation healing process, and help him regain normal GI functionality DANA CHOW MD Nov 27, 2024 11:16
[2024-11-27 11:30] LABS: Hematocrit 25.3 % (41.0-53.0); Hemoglobin 8.6 g/dL (13.5-17.5); Mean Corpuscular Hemoglobin 28.9 pg (28.0-32.0); Mean Corpuscular Volume 85.0 fL (80.0-100.0)
[2024-11-27] MEDS ORDERED: POTASSIUM CHL 20MEQ/100ML 100 ML IV SCH (11:30)
[2024-11-27 11:50] LABS: Total Cells Counted 100.0 (100)
--- NOTE | 2024-11-27 12:52 | DVHPN2 ---
Subjective Patient now complaining of belching, abdominal distention 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 (Administrative Services Specialist) Changes from previous H/P or p: No Changes General: Per HPI Objective Vitals Vital Signs Date Time Temp Pulse Resp B/P (MAP) Pulse Ox O2 Delivery O2 Flow Rate FiO2 11/27/24 10:24 119 27 128/68 11/27/24 06:00 93 11/27/24 06:00 Nasal Cannula* 1 24 11/27/24 04:00 98.5 98.5 Intake/Output Intake and Output 11/27/24 07:00 Intake Total 2116 ml Output Total 1645 ml Balance 471 ml Intake Oral 0 ml IV Total 2116 ml Output Urine Total 1450 ml Stool Total 170 ml Drainage Total 25 ml Exam Assessed in the recovery area. General Appearance: Alert, Oriented X3, Cooperative, mild distress HEENT: Atraumatic, PERRLA Lungs: Clear to auscultation, Normal air movement, Other (Nasal cannula at 4 L/min) Cardiovascular: Normal S1, Normal S2, Other (Sinus tachycardia) Abdomen: Other (Absent bowel sounds. No output from colostomy. GIOVANNY with minimal serosanguineous drainage) Genitourinary: No Apparent Abnormalities (Hernandez catheter) Musculoskeletal: Normal sensory function, Normal motor function Neuro: Normal gait, Normal speech, Sensation intact, Cranial nerves 3-12 NL Skin: Dry, Intact Psych/Mental Status: Mental status NL, Mood NL Medications Current Medications Medications Dose Ordered Sig/Edis Route Start Time Stop Time Status Last Admin Dose Admin Acetaminophen 650 mg Q6HPRN PRN PO 11/11/24 23:45 11/21/24 21:58 650 MG Piperacillin Sod/ Tazobactam Sod 100 ml @ 25 mls/hr Q8HR IV 11/12/24 06:00 UNV Ondansetron HCl 4 mg Q4HPRN PRN IV 11/12/24 07:45 11/25/24 06:32 4 MG Pantoprazole Sodium 40 mg DAILY IV 11/13/24 10:00 11/27/24 09:47 40 MG Morphine Sulfate 2 mg Q4HPRN PRN IV 11/12/24 16:45 11/27/24 10:24 2 MG Vancomycin HCl 300 ml @ 200 mls/hr Q12H IV 11/13/24 15:00 UNV Dextrose 50 ml UD IV 11/15/24 12:00 Diagnostic Test (Pha) 1 strip Q6HR 11/15/24 18:00 11/27/24 12:35 1 STRIP Insulin Human Regular FOLLOW SLIDING SCALE Q6HR SC 11/15/24 18:00 11/27/24 12:35 2 UNITS Hydralazine HCl 10 mg Q6HP PRN IV 11/16/24 15:45 11/25/24 09:31 10 MG Fat Emulsion Intravenous 200 ml/Sodium Chloride 80 meq/ Sodium Acetate 40 meq/Potassium Chloride 40 meq/ Potassium Phosphate 22 meq/ Calcium Gluconate 2.3 meq/Magnesium Sulfate 8 meq/ Multivitamins 10 ml/Chromium/ Copper/Manganese/ Zinc 1 ml/Amino Acids/Dextrose 1,582.9462 ml @ 66 mls/hr Q24H IV 11/18/24 22:00 11/19/24 21:59 Cancel Ceftriaxone Sodium/Dextrose 50 ml @ 50 mls/hr DAILY IV 11/25/24 10:00 11/27/24 10:18 50 MLS/HR Metronidazole 100 ml @ 100 mls/hr Q8HR IV 11/25/24 14:00 11/27/24 06:15 100 MLS/HR Enoxaparin Sodium 40 mg DAILY SC 11/25/24 10:00 11/27/24 12:19 40 MG Sodium Chloride 10 ml QSHIFT@10,22 IV 11/25/24 22:00 11/27/24 09:48 10 ML Amino Acids 0 ml @ 0 mls/hr PER PHARMACY IV 11/25/24 12:45 Linezolid 300 ml @ 150 mls/hr Q12HR IV 11/25/24 22:00 11/27/24 09:47 150 MLS/HR Fat Emulsion Intravenous 150 ml/Sodium Chloride 80 meq/ Sodium Acetate 20 meq/Sodium Phosphate 20 meq/ Potassium Chloride 20 meq/ Calcium Gluconate 4.65 meq/ Magnesium Sulfate 8 meq/ Multivitamins 10 ml/Chromium/ Copper/Manganese/ Zinc 1 ml/Amino Acids/Dextrose 1,518 ml @ 63 mls/hr Q24H6M IV 11/26/24 22:00 11/27/24 21:59 11/26/24 21:24 63 MLS/HR Fat Emulsion Intravenous 150 ml/Sodium Chloride 100 meq/ Sodium Acetate 10 meq/Sodium Phosphate 30 meq/ Potassium Chloride 10 meq/ Calcium Gluconate 2.325 meq/ Magnesium Sulfate 10 meq/ Multivitamins 10 ml/Chromium/ Copper/Manganese/ Zinc 1 ml/Amino Acids/Dextrose 1,611 ml @ 67 mls/hr Q24H3M IV 11/27/24 22:00 11/28/24 21:59 Potassium Chloride 100 ml @ 50 mls/hr Q2H IV 11/27/24 11:30 11/27/24 15:29 UNV Laboratory Results Laboratory Tests 11/27/24 05:07 11/27/24 11:12 Chemistry Test 11/27/24 05:07 Albumin 2.9 g/dL (3.2-4.8) L Calcium Level 8.1 mg/dL (8.7-10.4) L Magnesium Level 2.1 mg/dL (1.6-2.6) Phosphorus Level 2.7 mg/dL (2.4-5.1) Total Protein 4.9 g/dL (5.7-8.2) L LFT Test 11/27/24 05:07 Alanine Aminotransferase (ALT) 82 U/L (7-40) H Alkaline Phosphatase 93 U/L (46-116) Aspartate Amino Transferase (AST) 55 U/L (<34) H Total Bilirubin 0.8 mg/dL (0.2-1.0) Urinalysis Test 11/11/24 20:50 Urine Color Yellow (Yellow) Urine Clarity Clear (Clear) Urine pH 6.0 (5.0-9.0) Urine Specific [place] 1.021 (1.001-1.035) Urine Protein 1+ (Negative) H Urine Ketones Negative (Negative) Urine Blood 2+ /uL (Negative) H Urine Nitrite Negative (Negative) Urine Bilirubin Negative (Negative) Urine Urobilinogen 3 mg/dL (Negative) H Urine Leukocyte Esterase Negative /uL (Negative) Urine RBC 1 /hpf (0 - 3) Urine Microscopic WBC 6 /HPF (0-3) H Urine Squamous Epithelial Cells None seen /hpf (<5) Urine Bacteria None seen /hpf (None Seen) Urine Mucus Few (None Seen) Urine Glucose 1+ mg/dL (Normal) H Microbiology Microbiology Date/Time Source Procedure Growth Status 11/22/24 10:15 Abdomen Gram Stain - Final Resulted 11/22/24 10:15 Abdomen Anaerobic Culture - Final Resulted 11/22/24 10:15 Aerobic Culture - Preliminary Escherichia coli Enterococcus faecium - VRE Resulted 11/18/24 10:20 Voided Urine Urine Culture - Final Complete 11/18/24 09:45 Blood Blood Culture - Final NO GROWTH AFTER 5 DAYS OF INCUBATION. Complete 11/15/24 13:15 Aspirate Gram Stain - Final Complete 11/15/24 13:15 Body Fluid Culture - Final Escherichia coli Complete Labs and/or images reviewed: Labs reviewed by me, Image(s) reviewed by me Assessment/Plan Assessment/Plan Impression: -severe sepsis secondary to perforated diverticulitis -obesity -hypokalemia -hyponatremia -right upper extremity DVT, repeat ultrasound reports resolution Plan: Events: No events overnight. Continues to be tachycardic. Hyponatremia improving. -continue antibiotic therapy with ceftriaxone, Flagyl, Zyvox -continue TPN until patient takes oral intake per surgery -discontinue IV fluids given new onset hyponatremia, probably hypervolemia induced -PPI -pain management -out of bed as tolerated, physical therapy -incentive spirometer -H and H holding, start anticoagulation -repeat labs in a.m. Critical care time spent with patient discussing and formulating plan of care: 40 minutes. This does not include time spent performing procedures. This medical document was created using an electronic medical record system with [employer] dictation system. Although this document has been carefully reviewed, there may still be some phonetic and typographical errors. These areas are purely typographical due to imperfections of the software programs, and do not reflect any compromise in the patient's medical care. Plan discussed with: Patient, Other (RN) My Orders Orders - SANDRA GOODMAN NP Procedure Category Date Status Time Amino Acid PHA 11/27/24 In Process Infusion... W/Fat 22:00 Comprehensive LAB 11/28/24 Verified Metabolic Panel 04:00 Magnesium LAB 11/28/24 Verified 04:00 Phosphorus LAB 11/28/24 Verified 04:00 Tpn Per Pharmacy [facility] 11/27/24 In Process 22:00 Date of Service: Nov 27, 2024 Billing Provider: SANDRA GOODMAN NP Common Visit Codes: [id number] CARE 30-74 MIN SANDRA GOODMAN NP Nov 27, 2024 12:52
--- NOTE | 2024-11-27 16:45 | DVHPN2 ---
Progress Note Date Seen: Nov 27, 2024 Resident Creating Document: JULIA MARES RESIDENT Medical Necessity Reason Pt with a Central, PICC or Fol: No Subjective Review of Systems Patient was started on ice chips, tolerated well plan is to start liquid diet if patient tolerates well 300 mL of liquid stool was drained from colostomy tube today 5 mL of bloody drainage from drain tube On TPN 63 mL/hour Objective vital signs Vital Sign Date Time Temp Pulse Resp B/P (MAP) Pulse Ox O2 Delivery O2 Flow Rate FiO2 11/27/24 14:47 123 25 141/61 11/27/24 14:00 96 Nasal Cannula* 1 24 11/27/24 12:00 97.9 97.9 Total Intake and Output 11/26/24 11/26/24 11/27/24 15:00 23:00 07:00 Intake Total 909 ml 466 ml 804 ml Output Total 855 ml 790 ml Balance 909 ml -389 ml 14 ml medications Current Medications Medications Dose Ordered Sig/Edis Route Start Time Stop Time Status Last Admin Dose Admin Acetaminophen 650 mg Q6HPRN PRN PO 11/11/24 23:45 11/21/24 21:58 650 MG Piperacillin Sod/ Tazobactam Sod 100 ml @ 25 mls/hr Q8HR IV 11/12/24 06:00 UNV Ondansetron HCl 4 mg Q4HPRN PRN IV 11/12/24 07:45 11/25/24 06:32 4 MG Pantoprazole Sodium 40 mg DAILY IV 11/13/24 10:00 11/27/24 09:47 40 MG Morphine Sulfate 2 mg Q4HPRN PRN IV 11/12/24 16:45 11/27/24 14:47 2 MG Vancomycin HCl 300 ml @ 200 mls/hr Q12H IV 11/13/24 15:00 UNV Dextrose 50 ml UD IV 11/15/24 12:00 Diagnostic Test (Pha) 1 strip Q6HR 11/15/24 18:00 11/27/24 12:35 1 STRIP Insulin Human Regular FOLLOW SLIDING SCALE Q6HR SC 11/15/24 18:00 11/27/24 12:35 2 UNITS Hydralazine HCl 10 mg Q6HP PRN IV 11/16/24 15:45 11/25/24 09:31 10 MG Fat Emulsion Intravenous 200 ml/Sodium Chloride 80 meq/ Sodium Acetate 40 meq/Potassium Chloride 40 meq/ Potassium Phosphate 22 meq/ Calcium Gluconate 2.3 meq/Magnesium Sulfate 8 meq/ Multivitamins 10 ml/Chromium/ Copper/Manganese/ Zinc 1 ml/Amino Acids/Dextrose 1,582.9462 ml @ 66 mls/hr Q24H IV 11/18/24 22:00 11/19/24 21:59 Cancel Ceftriaxone Sodium/Dextrose 50 ml @ 50 mls/hr DAILY IV 11/25/24 10:00 11/27/24 10:18 50 MLS/HR Metronidazole 100 ml @ 100 mls/hr Q8HR IV 11/25/24 14:00 11/27/24 14:47 100 MLS/HR Enoxaparin Sodium 40 mg DAILY SC 11/25/24 10:00 11/27/24 12:19 40 MG Sodium Chloride 10 ml QSHIFT@10,22 IV 11/25/24 22:00 11/27/24 09:48 10 ML Amino Acids 0 ml @ 0 mls/hr PER PHARMACY IV 11/25/24 12:45 Linezolid 300 ml @ 150 mls/hr Q12HR IV 11/25/24 22:00 11/27/24 09:47 150 MLS/HR Fat Emulsion Intravenous 150 ml/Sodium Chloride 80 meq/ Sodium Acetate 20 meq/Sodium Phosphate 20 meq/ Potassium Chloride 20 meq/ Calcium Gluconate 4.65 meq/ Magnesium Sulfate 8 meq/ Multivitamins 10 ml/Chromium/ Copper/Manganese/ Zinc 1 ml/Amino Acids/Dextrose 1,518 ml @ 63 mls/hr Q24H6M IV 11/26/24 22:00 11/27/24 21:59 11/26/24 21:24 63 MLS/HR Fat Emulsion Intravenous 150 ml/Sodium Chloride 100 meq/ Sodium Acetate 10 meq/Sodium Phosphate 30 meq/ Potassium Chloride 10 meq/ Calcium Gluconate 2.325 meq/ Magnesium Sulfate 10 meq/ Multivitamins 10 ml/Chromium/ Copper/Manganese/ Zinc 1 ml/Amino Acids/Dextrose 1,611 ml @ 67 mls/hr Q24H3M IV 11/27/24 22:00 11/28/24 21:59 Potassium Chloride 100 ml @ 50 mls/hr Q2H IV 11/27/24 11:30 11/27/24 15:29 UNV laboratory and microbiology Laboratory Tests 11/27/24 11:12 11/27/24 05:07 Test 11/27/24 05:07 Range/Units Serum Glucose 131 H 74-106 mg/dL Microbiology Date/Time Source Procedure Growth Status 11/22/24 10:15 Abdomen Gram Stain - Final Resulted 11/22/24 10:15 Abdomen Anaerobic Culture - Final Resulted 11/22/24 10:15 Aerobic Culture - Preliminary Escherichia coli Enterococcus faecium - VRE Resulted 11/18/24 10:20 Voided Urine Urine Culture - Final Complete 11/18/24 09:45 Blood Blood Culture - Final NO GROWTH AFTER 5 DAYS OF INCUBATION. Complete 11/15/24 13:15 Aspirate Gram Stain - Final Complete 11/15/24 13:15 Body Fluid Culture - Final Escherichia coli Complete Problem List/Assessment/Plan Problem List/Assessment/Plan Assessment and plan Problems(with codes): (1) perforated Diverticulitis large intestine (2) Abnormal finding on GI tract imaging (3) Abscess of sigmoid colon due to diverticulitis (4) Leukocytosis Prognosis Plan If patient tolerates ice chips well then we will start clear liquid diet Continue IV Clinimix as prescribed Continue broad spectrum IV antibiotics Supportive care Incentive spirometry Surgical input appreciated On DVT prophylaxis On pantoprazole IV 40 mg daily Plan discussed with Dr. Emilee Sharma , nursing staff, Total time spent on patient evaluation, chart review, assessment and plan, discussion discussion >35 minutes Plan discussed with: Patient (RN), Other Dietary Evaluation Review Comments: To meet at least 75% ofpt's needs, recommend TPN kcal to be increased to 1500-2000kcal range and protein to be increased to 80-90g/d. Expected Outcomes/Goals: Pt will experience a gradual wt loss at this kcal level, yet, the appropriated nutrition support of protein and kcal can enhance pt's GI perforation healing process, and help him regain normal GI functionality JULIA MARES RESIDENT Nov 27, 2024 16:45
[2024-11-27] MEDS: TPN PER PHARMACY IV NR (21:44)
[2024-11-28] VITALS (34 sets, daily range): BP systolic 118–150; BP diastolic 62–83; PULSE 103–132; RESP 16–60; TEMP 98.3–100.1; O2SAT 86–98
[2024-11-28 04:47] LABS: Hematocrit 24.7 % (41.0-53.0); Hemoglobin 8.4 g/dL (13.5-17.5); Mean Corpuscular Hemoglobin 28.7 pg (28.0-32.0); Mean Corpuscular Volume 84.6 fL (80.0-100.0)
[2024-11-28 05:03] LABS: Alkaline Phosphatase 80 U/L (46-116); Anion Gap 7 (5-15); Blood Urea Nitrogen 13 mg/dL (9-23); Carbon Dioxide 27 mmol/L (20-31); Chloride 99 mmol/L (98-107); Magnesium 1.9 mg/dL (1.6-2.6); Potassium 3.7 mmol/L (3.5-5.1)
[2024-11-28 05:04] LABS: BUN/Creatinine Ratio 28.9 (10.0-20.0); Bilirubin, Total 0.9 mg/dL (0.2-1.0)
[2024-11-28 05:07] LABS: Alanine Aminotransferase 55 U/L (7-40); Albumin 2.7 g/dL (3.2-4.8); Calcium 7.4 mg/dL (8.7-10.4); Glucose 138 mg/dL (74-106); Sodium 133 mmol/L (136-145); Total Protein 4.8 g/dL (5.7-8.2)
[2024-11-28 05:21] LABS: Total Cells Counted 100.0 (100)
--- NOTE | 2024-11-28 09:29 | DVHPN2 ---
Subjective Patient denies any symptoms at this time. 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 (Relief Master) Changes from previous H/P or p: No Changes General: Per HPI Objective Vitals Vital Signs Date Time Temp Pulse Resp B/P (MAP) Pulse Ox O2 Delivery O2 Flow Rate FiO2 11/28/24 08:30 111 24 97 11/28/24 08:00 100.1 100.1 11/28/24 06:00 Nasal Cannula* 1 24 Intake/Output Intake and Output 11/28/24 07:00 Intake Total 2520 ml Output Total 2020 ml Balance 500 ml Intake Oral 250 ml IV Total 2270 ml Output Urine Total 1650 ml Stool Total 345 ml Drainage Total 25 ml Exam Assessed in the recovery area. General Appearance: Alert, Oriented X3, Cooperative, mild distress HEENT: Atraumatic, PERRLA Lungs: Clear to auscultation, Normal air movement, Other (Nasal cannula at 4 L/min) Cardiovascular: Normal S1, Normal S2, Other (Sinus tachycardia) Abdomen: Other (Absent bowel sounds. No output from colostomy. GIOVANNY with minimal serosanguineous drainage) Genitourinary: No Apparent Abnormalities (Hernandez catheter) Musculoskeletal: Normal sensory function, Normal motor function Neuro: Normal gait, Normal speech, Sensation intact, Cranial nerves 3-12 NL Skin: Dry, Intact Psych/Mental Status: Mental status NL, Mood NL Medications Current Medications Medications Dose Ordered Sig/Edis Route Start Time Stop Time Status Last Admin Dose Admin Acetaminophen 650 mg Q6HPRN PRN PO 11/11/24 23:45 11/21/24 21:58 650 MG Piperacillin Sod/ Tazobactam Sod 100 ml @ 25 mls/hr Q8HR IV 11/12/24 06:00 UNV Ondansetron HCl 4 mg Q4HPRN PRN IV 11/12/24 07:45 11/25/24 06:32 4 MG Pantoprazole Sodium 40 mg DAILY IV 11/13/24 10:00 11/27/24 09:47 40 MG Morphine Sulfate 2 mg Q4HPRN PRN IV 11/12/24 16:45 11/28/24 03:59 2 MG Vancomycin HCl 300 ml @ 200 mls/hr Q12H IV 11/13/24 15:00 UNV Dextrose 50 ml UD IV 11/15/24 12:00 Diagnostic Test (Pha) 1 strip Q6HR 11/15/24 18:00 11/28/24 06:19 1 STRIP Insulin Human Regular FOLLOW SLIDING SCALE Q6HR SC 11/15/24 18:00 11/28/24 06:19 2 UNITS Hydralazine HCl 10 mg Q6HP PRN IV 11/16/24 15:45 11/25/24 09:31 10 MG Fat Emulsion Intravenous 200 ml/Sodium Chloride 80 meq/ Sodium Acetate 40 meq/Potassium Chloride 40 meq/ Potassium Phosphate 22 meq/ Calcium Gluconate 2.3 meq/Magnesium Sulfate 8 meq/ Multivitamins 10 ml/Chromium/ Copper/Manganese/ Zinc 1 ml/Amino Acids/Dextrose 1,582.9462 ml @ 66 mls/hr Q24H IV 11/18/24 22:00 11/19/24 21:59 Cancel Ceftriaxone Sodium/Dextrose 50 ml @ 50 mls/hr DAILY IV 11/25/24 10:00 11/27/24 10:18 50 MLS/HR Metronidazole 100 ml @ 100 mls/hr Q8HR IV 11/25/24 14:00 11/28/24 06:19 100 MLS/HR Enoxaparin Sodium 40 mg DAILY SC 11/25/24 10:00 11/27/24 12:19 40 MG Sodium Chloride 10 ml QSHIFT@10,22 IV 11/25/24 22:00 11/27/24 21:44 10 ML Amino Acids 0 ml @ 0 mls/hr PER PHARMACY IV 11/25/24 12:45 Linezolid 300 ml @ 150 mls/hr Q12HR IV 11/25/24 22:00 11/27/24 21:44 150 MLS/HR Fat Emulsion Intravenous 150 ml/Sodium Chloride 100 meq/ Sodium Acetate 10 meq/Sodium Phosphate 30 meq/ Potassium Chloride 10 meq/ Calcium Gluconate 2.325 meq/ Magnesium Sulfate 10 meq/ Multivitamins 10 ml/Chromium/ Copper/Manganese/ Zinc 1 ml/Amino Acids/Dextrose 1,611 ml @ 67 mls/hr Q24H3M IV 11/27/24 22:00 11/28/24 21:59 11/27/24 21:44 67 MLS/HR Potassium Chloride 100 ml @ 50 mls/hr Q2H IV 11/27/24 11:30 11/27/24 15:29 UNV Laboratory Results Laboratory Tests 11/28/24 04:35 Chemistry Test 11/28/24 04:35 Albumin 2.7 g/dL (3.2-4.8) L Calcium Level 7.4 mg/dL (8.7-10.4) L Magnesium Level 1.9 mg/dL (1.6-2.6) Phosphorus Level 3.0 mg/dL (2.4-5.1) Total Protein 4.8 g/dL (5.7-8.2) L LFT Test 11/28/24 04:35 Alanine Aminotransferase (ALT) 55 U/L (7-40) H Alkaline Phosphatase 80 U/L (46-116) Aspartate Amino Transferase (AST) 22 U/L (<34) Total Bilirubin 0.9 mg/dL (0.2-1.0) Urinalysis Test 11/11/24 20:50 Urine Color Yellow (Yellow) Urine Clarity Clear (Clear) Urine pH 6.0 (5.0-9.0) Urine Specific [place] 1.021 (1.001-1.035) Urine Protein 1+ (Negative) H Urine Ketones Negative (Negative) Urine Blood 2+ /uL (Negative) H Urine Nitrite Negative (Negative) Urine Bilirubin Negative (Negative) Urine Urobilinogen 3 mg/dL (Negative) H Urine Leukocyte Esterase Negative /uL (Negative) Urine RBC 1 /hpf (0 - 3) Urine Microscopic WBC 6 /HPF (0-3) H Urine Squamous Epithelial Cells None seen /hpf (<5) Urine Bacteria None seen /hpf (None Seen) Urine Mucus Few (None Seen) Urine Glucose 1+ mg/dL (Normal) H Microbiology Microbiology Date/Time Source Procedure Growth Status 11/22/24 10:15 Abdomen Gram Stain - Final Resulted 11/22/24 10:15 Abdomen Anaerobic Culture - Final Resulted 11/22/24 10:15 Aerobic Culture - Preliminary Escherichia coli Enterococcus faecium - VRE Resulted 11/18/24 10:20 Voided Urine Urine Culture - Final Complete 11/18/24 09:45 Blood Blood Culture - Final NO GROWTH AFTER 5 DAYS OF INCUBATION. Complete 11/15/24 13:15 Aspirate Gram Stain - Final Complete 11/15/24 13:15 Body Fluid Culture - Final Escherichia coli Complete Labs and/or images reviewed: Labs reviewed by me, Image(s) reviewed by me Assessment/Plan Assessment/Plan Impression: -severe sepsis secondary to perforated diverticulitis -obesity -hypokalemia -hyponatremia -right upper extremity DVT, repeat ultrasound reports resolution Plan: Events: No events overnight. Patient with intermittent fevers. Continues to be tachycardic. White blood cell count not improving. GI mentioned starting clear liquid diet. At this point, I would wait for surgery to reassessed the patient. Patient may require repeat CT scan to rule out abscess formation. -continue antibiotic therapy with ceftriaxone, Flagyl, Zyvox -continue TPN until patient takes oral intake per surgery -discontinue IV fluids given new onset hyponatremia, probably hypervolemia induced -PPI -pain management -out of bed as tolerated, physical therapy -incentive spirometer -H and H holding, start anticoagulation -repeat labs in a.m. Critical care time spent with patient discussing and formulating plan of care: 40 minutes. This does not include time spent performing procedures. This medical document was created using an electronic medical record system with [employer] dictation system. Although this document has been carefully reviewed, there may still be some phonetic and typographical errors. These areas are purely typographical due to imperfections of the software programs, and do not reflect any compromise in the patient's medical care. Plan discussed with: Patient, Other (RN) My Orders Orders - SANDRA GOODMAN NP Procedure Category Date Status Time Amino Acid PHA 11/27/24 In Process Infusion... W/Fat 22:00 Tpn Per Pharmacy PETE 11/27/24 In Process 22:00 Blood Culture GEORGETTE 11/28/24 Logged 09:16 Date of Service: Nov 28, 2024 Billing Provider: SANDRA GOODMAN NP Common Visit Codes: 18428-[id number] CARE 30-74 MIN SANDRA GOODMAN NP Nov 28, 2024 09:29
[2024-11-28] MEDS: CALCIUM GLUC 1,000mg/50ml-NS 50 ML IV ONE (11:25)
--- NOTE | 2024-11-28 15:08 | DVHPN2 ---
Progress Note Date Seen: Nov 28, 2024 Resident Creating Document: JULIA MARES RESIDENT Medical Necessity Reason Pt with a Central, PICC or Fol: No Subjective Review of Systems Patient was seen today at bedside Patient has persistent leukocytosis H&H stable Patient reported he had small bowel movement today Patient is draining stool from colostomy tube Objective vital signs Vital Sign Date Time Temp Pulse Resp B/P (MAP) Pulse Ox O2 Delivery O2 Flow Rate FiO2 11/28/24 13:00 122 28 137/71 (93) 93 11/28/24 12:00 Nasal Cannula* 1 24 11/28/24 12:00 98.8 98.8 Total Intake and Output 11/27/24 11/27/24 11/28/24 15:00 23:00 07:00 Intake Total 854 ml 747 ml 919 ml Output Total 1115 ml 905 ml Balance 854 ml -368 ml 14 ml medications Current Medications Medications Dose Ordered Sig/Edis Route Start Time Stop Time Status Last Admin Dose Admin Acetaminophen 650 mg Q6HPRN PRN PO 11/11/24 23:45 11/21/24 21:58 650 MG Piperacillin Sod/ Tazobactam Sod 100 ml @ 25 mls/hr Q8HR IV 11/12/24 06:00 UNV Ondansetron HCl 4 mg Q4HPRN PRN IV 11/12/24 07:45 11/25/24 06:32 4 MG Pantoprazole Sodium 40 mg DAILY IV 11/13/24 10:00 11/28/24 11:22 40 MG Morphine Sulfate 2 mg Q4HPRN PRN IV 11/12/24 16:45 11/28/24 03:59 2 MG Vancomycin HCl 300 ml @ 200 mls/hr Q12H IV 11/13/24 15:00 UNV Dextrose 50 ml UD IV 11/15/24 12:00 Diagnostic Test (Pha) 1 strip Q6HR 11/15/24 18:00 11/28/24 11:32 1 STRIP Insulin Human Regular FOLLOW SLIDING SCALE Q6HR SC 11/15/24 18:00 11/28/24 11:55 2 UNITS Hydralazine HCl 10 mg Q6HP PRN IV 11/16/24 15:45 11/25/24 09:31 10 MG Fat Emulsion Intravenous 200 ml/Sodium Chloride 80 meq/ Sodium Acetate 40 meq/Potassium Chloride 40 meq/ Potassium Phosphate 22 meq/ Calcium Gluconate 2.3 meq/Magnesium Sulfate 8 meq/ Multivitamins 10 ml/Chromium/ Copper/Manganese/ Zinc 1 ml/Amino Acids/Dextrose 1,582.9462 ml @ 66 mls/hr Q24H IV 11/18/24 22:00 11/19/24 21:59 Cancel Ceftriaxone Sodium/Dextrose 50 ml @ 50 mls/hr DAILY IV 11/25/24 10:00 11/28/24 13:30 50 MLS/HR Metronidazole 100 ml @ 100 mls/hr Q8HR IV 11/25/24 14:00 11/28/24 14:40 100 MLS/HR Enoxaparin Sodium 40 mg DAILY SC 11/25/24 10:00 11/28/24 11:32 40 MG Sodium Chloride 10 ml QSHIFT@10,22 IV 11/25/24 22:00 11/28/24 11:22 10 ML Amino Acids 0 ml @ 0 mls/hr PER PHARMACY IV 11/25/24 12:45 Linezolid 300 ml @ 150 mls/hr Q12HR IV 11/25/24 22:00 11/28/24 11:22 150 MLS/HR Fat Emulsion Intravenous 150 ml/Sodium Chloride 100 meq/ Sodium Acetate 10 meq/Sodium Phosphate 30 meq/ Potassium Chloride 10 meq/ Calcium Gluconate 2.325 meq/ Magnesium Sulfate 10 meq/ Multivitamins 10 ml/Chromium/ Copper/Manganese/ Zinc 1 ml/Amino Acids/Dextrose 1,611 ml @ 67 mls/hr Q24H3M IV 11/27/24 22:00 11/28/24 21:59 11/27/24 21:44 67 MLS/HR Potassium Chloride 100 ml @ 50 mls/hr Q2H IV 11/27/24 11:30 11/27/24 15:29 UNV Fat Emulsion Intravenous 150 ml/Sodium Chloride 120 meq/ Sodium Phosphate 20 meq/Potassium Chloride 40 meq/ Calcium Gluconate 4.65 meq/ Magnesium Sulfate 14 meq/ Multivitamins 10 ml/Chromium/ Copper/Manganese/ Zinc 1 ml/Amino Acids/Dextrose 1,829.5 ml @ 76 mls/hr Q24H5M IV 11/28/24 22:00 11/29/24 21:59 laboratory and microbiology Laboratory Tests 11/28/24 04:35 Test 11/28/24 04:35 Range/Units Serum Glucose 138 H 74-106 mg/dL Microbiology Date/Time Source Procedure Growth Status 11/22/24 10:15 Abdomen Gram Stain - Final Resulted 11/22/24 10:15 Abdomen Anaerobic Culture - Final Resulted 11/22/24 10:15 Aerobic Culture - Preliminary Escherichia coli Enterococcus faecium - VRE Resulted 11/18/24 10:20 Voided Urine Urine Culture - Final Complete 11/18/24 09:45 Blood Blood Culture - Final NO GROWTH AFTER 5 DAYS OF INCUBATION. Complete 11/15/24 13:15 Aspirate Gram Stain - Final Complete 11/15/24 13:15 Body Fluid Culture - Final Escherichia coli Complete Problem List/Assessment/Plan Problem List/Assessment/Plan Assessment and plan Problems(with codes): (1) perforated Diverticulitis large intestine (2) Abnormal finding on GI tract imaging (3) Abscess of sigmoid colon due to diverticulitis (4) Leukocytosis Events Patient has persistent leukocytosis H&H stable Patient reported he had small bowel movement today Patient is draining stool from colostomy tube Prognosis Plan Plan is to repeat CT scan of the abdomen and pelvis due to persistent leukocytosis Recommended for re-evaluation by the surgeon due to persistent leukocytosis, rule out any intra-abdominal collection/pus Continue IV Clinimix as prescribed Continue broad spectrum IV antibiotics Supportive care Incentive spirometry Surgical input appreciated On DVT prophylaxis On pantoprazole IV 40 mg daily Plan discussed with Dr. Emilee Sharma , nursing staff, Total time spent on patient evaluation, chart review, assessment and plan, discussion discussion >35 minutes Plan discussed with: Patient (RN), Other Dietary Evaluation Review Comments: To meet at least 75% ofpt's needs, recommend TPN kcal to be increased to 1500-2000kcal range and protein to be increased to 80-90g/d. Expected Outcomes/Goals: Pt will experience a gradual wt loss at this kcal level, yet, the appropriated nutrition support of protein and kcal can enhance pt's GI perforation healing process, and help him regain normal GI functionality JULIA MARES RESIDENT Nov 28, 2024 15:08
[2024-11-28] MEDS: GASTROGRAFIN 30 ML SOL ONE (16:56)
[2024-11-28] MEDS: TPN PER PHARMACY IV NR (22:12)
[2024-11-28] MEDS ORDERED: MELATONIN 5 MG TAB PO PRN (23:00)
[2024-11-29] VITALS (25 sets, daily range): BP systolic 120–159; BP diastolic 49–89; PULSE 110–160; RESP 20–43; TEMP 98.4–99.9; O2SAT 88–96
--- NOTE | 2024-11-29 01:03 | DVH ---
Exam: CT CT ABD PELVIS W CON-ORAL IV History: FOLLOW UP CT Comparison Study: CT CT AB PEL WITH IV CON ONLY on DOS: 11/14/24 TECHNIQUE: A digital commercial account executive image was obtained. During the uneventful, intravenous administration of c ontrast material, multislice data acquisition was obtained through the abdomen and pelvis. The data s et was subsequently reconstructed into axial images. Coronal and sagittal reformats were performed us ing a variety of window levels and settings.100 ml of oral contrast was administered. RADIATION DOSE: DLP 25.1 mGy.cm; CTDI vol 1745.18 mGy. Findings: Evaluation is degraded by motion artifact. Lungs: There are bilateral lower lobe opacities. Liver: Unremarkable. Gallbladder: There is mild gallbladder distention. Spleen: Unremarkable. Pancreas: Unremarkable. Adrenals: Unremarkable Kidneys: Unremarkable. GI tract: Interval development of dilated loops of small bowel throughout the abdomen with gradual tr ansition to decompressed distal loops. Oral contrast is seen throughout the visualized small bowel. There is a left lower quadrant colostomy. There is a multiloculated collection within the lower pelvi s with a drainage catheter noted, difficult to measure given extent of involvement and artifact, thou gh appearing increased compared to the prior study. There is also redemonstration of soft tissue dens ity in the perirectal and presacral region, without significant interval change. : Unremarkable. Vasculature: Unremarkable. Lymphadenopathy: Absent Peritoneum: As above. Mild upper abdominal ascites. Musculoskeletal: Unremarkable. Soft tissues: There is stranding surrounding the left lower quadrant colostomy. There is stranding an d soft tissue density within the anterior lower ventral abdominal wall, possibly for belching recent procedure, further clinical correlation is suggested. Impression: 1. Artifact degraded evaluation. Interval development of dilated loops of small bowel throughout the abdomen, which is favored to reflect ileus in the given clinical setting. Developing small-bowel obs truction cannot be entirely excluded. 2. Interval left lower quadrant colostomy, correlation with recent surgical history is suggested. 3. Multiloculated collections within the lower pelvis, overall difficult to measure given artifact an d extent of involvement, though appearing increased compared to the prior study. 4. Lower lobe pulmonary opacities may reflect atelectasis or infectious/inflammatory process in the a ppropriate clinical setting. 5. Additional findings as detailed.
[2024-11-29 05:33] LABS: Hematocrit 27.2 % (41.0-53.0); Hemoglobin 8.4 g/dL (13.5-17.5); Mean Corpuscular Hemoglobin 29.8 pg (28.0-32.0); Mean Corpuscular Volume 95.9 fL (80.0-100.0)
[2024-11-29 05:44] LABS: Total Cells Counted 100.0 (100)
[2024-11-29 05:47] LABS: Alkaline Phosphatase 77 U/L (46-116); Anion Gap 7 (5-15); BUN/Creatinine Ratio 32.6 (10.0-20.0); Blood Urea Nitrogen 14 mg/dL (9-23); Carbon Dioxide 27 mmol/L (20-31); Chloride 100 mmol/L (98-107); Magnesium 1.8 mg/dL (1.6-2.6)
[2024-11-29 05:48] LABS: Alanine Aminotransferase 41 U/L (7-40); Albumin 2.7 g/dL (3.2-4.8); Bilirubin, Total 0.7 mg/dL (0.2-1.0); Calcium 7.4 mg/dL (8.7-10.4); Glucose 131 mg/dL (74-106); Potassium 3.5 mmol/L (3.5-5.1); Sodium 134 mmol/L (136-145); Total Protein 4.8 g/dL (5.7-8.2)
[2024-11-29] MEDS: HYDROmorphone HCL 2 MG/ML VL/or syr ONE (06:12)
[2024-11-29] MEDS: HYDROmorphone HCL 2 MG/ML VL/or syr IV ONE (06:12)
--- NOTE | 2024-11-29 07:31 | DVHPN2 ---
Progress Note Date Seen: Nov 29, 2024 Medical Necessity Reason Pt with a Central, PICC or Fol: No Objective vital signs Vital Sign Date Time Temp Pulse Resp B/P (MAP) Pulse Ox O2 Delivery O2 Flow Rate FiO2 11/29/24 06:12 134 28 143/50 11/29/24 06:00 88 11/29/24 06:00 Nasal Cannula* 3 32 11/29/24 04:00 98.6 98.6 Total Intake and Output 11/28/24 11/28/24 11/29/24 15:00 23:00 07:00 Intake Total 1036 ml 1849 ml 772 ml Output Total 710 ml 803 ml Balance 1036 ml 1139 ml -31 ml medications Current Medications Medications Dose Ordered Sig/Edis Route Start Time Stop Time Status Last Admin Dose Admin Acetaminophen 650 mg Q6HPRN PRN PO 11/11/24 23:45 11/21/24 21:58 650 MG Piperacillin Sod/ Tazobactam Sod 100 ml @ 25 mls/hr Q8HR IV 11/12/24 06:00 UNV Ondansetron HCl 4 mg Q4HPRN PRN IV 11/12/24 07:45 11/25/24 06:32 4 MG Pantoprazole Sodium 40 mg DAILY IV 11/13/24 10:00 11/28/24 11:22 40 MG Morphine Sulfate 2 mg Q4HPRN PRN IV 11/12/24 16:45 11/29/24 04:50 2 MG Vancomycin HCl 300 ml @ 200 mls/hr Q12H IV 11/13/24 15:00 UNV Dextrose 50 ml UD IV 11/15/24 12:00 Diagnostic Test (Pha) 1 strip Q6HR 11/15/24 18:00 11/29/24 06:12 1 STRIP Insulin Human Regular FOLLOW SLIDING SCALE Q6HR SC 11/15/24 18:00 11/29/24 06:15 2 UNITS Hydralazine HCl 10 mg Q6HP PRN IV 11/16/24 15:45 11/25/24 09:31 10 MG Fat Emulsion Intravenous 200 ml/Sodium Chloride 80 meq/ Sodium Acetate 40 meq/Potassium Chloride 40 meq/ Potassium Phosphate 22 meq/ Calcium Gluconate 2.3 meq/Magnesium Sulfate 8 meq/ Multivitamins 10 ml/Chromium/ Copper/Manganese/ Zinc 1 ml/Amino Acids/Dextrose 1,582.9462 ml @ 66 mls/hr Q24H IV 11/18/24 22:00 11/19/24 21:59 Cancel Ceftriaxone Sodium/Dextrose 50 ml @ 50 mls/hr DAILY IV 11/25/24 10:00 11/28/24 13:30 50 MLS/HR Metronidazole 100 ml @ 100 mls/hr Q8HR IV 11/25/24 14:00 11/29/24 06:15 100 MLS/HR Enoxaparin Sodium 40 mg DAILY SC 11/25/24 10:00 11/28/24 11:32 40 MG Sodium Chloride 10 ml QSHIFT@10,22 IV 11/25/24 22:00 11/28/24 22:13 10 ML Amino Acids 0 ml @ 0 mls/hr PER PHARMACY IV 11/25/24 12:45 Linezolid 300 ml @ 150 mls/hr Q12HR IV 11/25/24 22:00 11/28/24 22:10 150 MLS/HR Potassium Chloride 100 ml @ 50 mls/hr Q2H IV 11/27/24 11:30 11/27/24 15:29 UNV Fat Emulsion Intravenous 150 ml/Sodium Chloride 120 meq/ Sodium Phosphate 20 meq/Potassium Chloride 40 meq/ Calcium Gluconate 4.65 meq/ Magnesium Sulfate 14 meq/ Multivitamins 10 ml/Chromium/ Copper/Manganese/ Zinc 1 ml/Amino Acids/Dextrose 1,829.5 ml @ 76 mls/hr Q24H5M IV 11/28/24 22:00 11/29/24 21:59 11/28/24 22:12 76 MLS/HR Melatonin 10 mg HSPRN PRN PO 11/28/24 23:00 laboratory and microbiology Laboratory Tests 11/29/24 04:45 Test 11/29/24 04:45 Range/Units Serum Glucose 131 H 74-106 mg/dL Problem List/Assessment/Plan Problem List/Assessment/Plan 11/13/24feels well, abdomen non tender, ;leukocytosis, continue, as is, repeat CT scan in 48 hours 11/15/24 UNDERWENT PERCUTANEOUS DRAINAGE OF PERICOLONIC ABSCESS, ABDOMEN NON DISTENDED, NON TENDER. WILL FOLLOW 11/16/24 feels well, hungry, abdomen non tyender, derainage purulent, will irrigate, allow po intake 11/19/24 NO ABDOMINAL PAIN, NO NAUSEA, ABDOMEN NON TENDER, PICC LINE WAS REMOVED ,WILL CHECK CBC IN AM 11/20/24 await CBC tomorrow to decide on next step, abdomen non ternder but no BM, he feels "backed Up" will get gastrografin bowel x ray. 11/21/24 patient had a few bowel movements but feels worse, although his abdomen is not tender, his WBC is climbing and his CT scan looks much worse. I gave the patient the option to go back to NPO and TPN vs an operation with a colostomy, he choses to be operated on and get a colostomy as this "may be a faster way to get better". Operation, risks and complications explained in detail/ 11/27/24 feels better, no flatus in stoma bag, stoma viable,wound with some infection at inferior aspect of infraumbilical extent, abdomen appropriately tender, will allow ice chips and sips of water, must be out iof bed q 4 hours 11/29/24 ABDOMEN NON DISTENDED, APPROPRIATELY TENDER ,STOMA VIABLE WITH LIQUID OUTPUT BUT ONLY SMALL AMOUNT OF FLATUS. PATIENT IS BELCHING , FLUID [id number] IN THE RIGHT PELVIS IS NOT ADEQUATELY DRAINED BY THE INDWELLING DRAIN, WILL REQUEST RADIOLOGIST TO ATTEMPT MORE ADEQUATE DRAINAGE UNDER CT GUIDANCE. WILL INCREASE iv FLUIDS DUE TO TACHYCARDIA AND EVIDENCE OF BOWEL DISTENSION Plan discussed with: Patient Dietary Evaluation Review Comments: To meet at least 75% ofpt's needs, recommend TPN kcal to be increased to 1500-2000kcal range and protein to be increased to 80-90g/d. Expected Outcomes/Goals: Pt will experience a gradual wt loss at this kcal level, yet, the appropriated nutrition support of protein and kcal can enhance pt's GI perforation healing process, and help him regain normal GI functionality DANA CHOW MD Nov 29, 2024 07:31
[2024-11-29] MEDS ORDERED: LACTATED RINGER'S 2,000 ML IV ONE (07:45)
[2024-11-29] MEDS ORDERED: ALBUMIN 25% 50 ML IV SCH (07:45)
[2024-11-29] MEDS: LACTATED RINGER'S 2,000 ML IV STA (08:00)
[2024-11-29] MEDS: ALBUMIN 25% 50 ML IV SCH (08:01)
--- NOTE | 2024-11-29 09:11 | DVHPN2 ---
Subjective Patient denies any symptoms at this time. 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 General Appearance: Alert, Oriented X3, Cooperative, mild distress HEENT: Atraumatic, PERRLA Lungs: Clear to auscultation, Normal air movement, Other (Nasal cannula at 4 L/min) Cardiovascular: Normal S1, Normal S2, Other (Sinus tachycardia) Abdomen: Other (Absent bowel sounds. No output from colostomy. GIOVANNY with minimal serosanguineous drainage) Genitourinary: No Apparent Abnormalities (Hernandez catheter) Musculoskeletal: Normal sensory function, Normal motor function Neuro: Normal gait, Normal speech, Sensation intact, Cranial nerves 3-12 NL Skin: Dry, Intact Psych/Mental Status: Mental status NL, Mood NL Medications Current Medications Medications Dose Ordered Sig/Edis Route Start Time Stop Time Status Last Admin Dose Admin Acetaminophen 650 mg Q6HPRN PRN PO 11/11/24 23:45 11/21/24 21:58 650 MG Piperacillin Sod/ Tazobactam Sod 100 ml @ 25 mls/hr Q8HR IV 11/12/24 06:00 UNV Ondansetron HCl 4 mg Q4HPRN PRN IV 11/12/24 07:45 11/25/24 06:32 4 MG Pantoprazole Sodium 40 mg DAILY IV 11/13/24 10:00 11/28/24 11:22 40 MG Morphine Sulfate 2 mg Q4HPRN PRN IV 11/12/24 16:45 11/29/24 04:50 2 MG Vancomycin HCl 300 ml @ 200 mls/hr Q12H IV 11/13/24 15:00 UNV Dextrose 50 ml UD IV 11/15/24 12:00 Diagnostic Test (Pha) 1 strip Q6HR 11/15/24 18:00 11/29/24 06:12 1 STRIP Insulin Human Regular FOLLOW SLIDING SCALE Q6HR SC 11/15/24 18:00 11/29/24 06:15 2 UNITS Hydralazine HCl 10 mg Q6HP PRN IV 11/16/24 15:45 11/25/24 09:31 10 MG Fat Emulsion Intravenous 200 ml/Sodium Chloride 80 meq/ Sodium Acetate 40 meq/Potassium Chloride 40 meq/ Potassium Phosphate 22 meq/ Calcium Gluconate 2.3 meq/Magnesium Sulfate 8 meq/ Multivitamins 10 ml/Chromium/ Copper/Manganese/ Zinc 1 ml/Amino Acids/Dextrose 1,582.9462 ml @ 66 mls/hr Q24H IV 11/18/24 22:00 11/19/24 21:59 Cancel Sodium Chloride 10 ml QSHIFT@10,22 IV 11/25/24 22:00 11/28/24 22:13 10 ML Amino Acids 0 ml @ 0 mls/hr PER PHARMACY IV 11/25/24 12:45 Linezolid 300 ml @ 150 mls/hr Q12HR IV 11/25/24 22:00 11/28/24 22:10 150 MLS/HR Potassium Chloride 100 ml @ 50 mls/hr Q2H IV 11/27/24 11:30 11/27/24 15:29 UNV Fat Emulsion Intravenous 150 ml/Sodium Chloride 120 meq/ Sodium Phosphate 20 meq/Potassium Chloride 40 meq/ Calcium Gluconate 4.65 meq/ Magnesium Sulfate 14 meq/ Multivitamins 10 ml/Chromium/ Copper/Manganese/ Zinc 1 ml/Amino Acids/Dextrose 1,829.5 ml @ 76 mls/hr Q24H5M IV 11/28/24 22:00 11/29/24 21:59 11/28/24 22:12 76 MLS/HR Albumin Human 50 ml @ 100 mls/hr Q8H IV 11/29/24 07:45 Hold Lactated Ringer's 2,000 ml @ 1,000 mls/hr Q2H STAT IV 11/29/24 07:34 11/29/24 09:33 11/29/24 08:00 1,000 MLS/HR Albumin Human 50 ml @ 100 mls/hr Q8H IV 11/29/24 07:45 11/30/24 00:14 11/29/24 08:01 100 MLS/HR Meropenem 50 ml @ 17 mls/hr Q8HR IV 11/29/24 14:00 Lorazepam 0.5 mg Q6HP PRN IV 11/29/24 09:00 Laboratory Results Laboratory Tests 11/29/24 04:45 Chemistry Test 11/29/24 04:45 Albumin 2.7 g/dL (3.2-4.8) L Calcium Level 7.4 mg/dL (8.7-10.4) L Magnesium Level 1.8 mg/dL (1.6-2.6) Phosphorus Level 2.9 mg/dL (2.4-5.1) Total Protein 4.8 g/dL (5.7-8.2) L LFT Test 11/29/24 04:45 Alanine Aminotransferase (ALT) 41 U/L (7-40) H Alkaline Phosphatase 77 U/L (46-116) Aspartate Amino Transferase (AST) 20 U/L (<34) Total Bilirubin 0.7 mg/dL (0.2-1.0) Urinalysis Test 11/11/24 20:50 Urine Color Yellow (Yellow) Urine Clarity Clear (Clear) Urine pH 6.0 (5.0-9.0) Urine Specific Meherrin 1.021 (1.001-1.035) Urine Protein 1+ (Negative) H Urine Ketones Negative (Negative) Urine Blood 2+ /uL (Negative) H Urine Nitrite Negative (Negative) Urine Bilirubin Negative (Negative) Urine Urobilinogen 3 mg/dL (Negative) H Urine Leukocyte Esterase Negative /uL (Negative) Urine RBC 1 /hpf (0 - 3) Urine Microscopic WBC 6 /HPF (0-3) H Urine Squamous Epithelial Cells None seen /hpf (<5) Urine Bacteria None seen /hpf (None Seen) Urine Mucus Few (None Seen) Urine Glucose 1+ mg/dL (Normal) H Microbiology Microbiology Date/Time Source Procedure Growth Status 11/22/24 10:15 Abdomen Gram Stain - Final Complete 11/22/24 10:15 Abdomen Anaerobic Culture - Final Complete 11/22/24 10:15 Aerobic Culture - Final Escherichia coli Enterococcus faecium - VRE Complete 11/18/24 10:20 Voided Urine Urine Culture - Final Complete 11/18/24 09:45 Blood Blood Culture - Final NO GROWTH AFTER 5 DAYS OF INCUBATION. Complete 11/15/24 13:15 Aspirate Gram Stain - Final Complete 11/15/24 13:15 Body Fluid Culture - Final Escherichia coli Complete Labs and/or images reviewed: Labs reviewed by me, Image(s) reviewed by me Assessment/Plan Assessment/Plan Impression: -severe sepsis secondary to perforated diverticulitis -obesity -hypokalemia -hyponatremia -right upper extremity DVT, repeat ultrasound reports resolution Plan: Events: Patient continues to be tachycardic, worsening. CT scan of the abdomen and pelvis with noted areas of abscess and pelvis. Plans for IR drainage. CT also reveals bibasilar opacities. Change antibiotics to cover for pneumonia -IV antibiotics: Merrem panel, Zyvox -continue TPN, strict NPO. The patient has nausea and vomiting, replaced NG tube -discontinue IV fluids given new onset hyponatremia, probably hypervolemia induced -PPI -pain management -out of bed as tolerated, physical therapy -incentive spirometer -repeat labs in a.m. Critical care time spent with patient discussing and formulating plan of care: 40 minutes. This does not include time spent performing procedures. This medical document was created using an electronic medical record system with [employer] dictation system. Although this document has been carefully reviewed, there may still be some phonetic and typographical errors. These areas are purely typographical due to imperfections of the software programs, and do not reflect any compromise in the patient's medical care. Plan discussed with: Patient, Other (RN) My Orders Orders - SANDRA GOODMAN LAST SAWYER Procedure Category Date Status Time Blood Culture GEORGETTE 11/28/24 In Process 09:16 Amino Acid PHA 11/28/24 In Process Infusion... W/Fat 22:00 Tpn Per Pharmacy PETE 11/28/24 In Process 22:00 Meropenem 1gm Ivpb PHA 11/29/24 In Process (Merrem 1gm/ Ns) 14:00 Meropenem 1gm Ivpb PHA 11/29/24 In Process (Merrem 1gm/ Ns) 09:00 Lorazepam 2mg/Ml Inj PHA 11/29/24 In Process (Ativan Inj) 09:00 Blood Culture GEORGETTE 11/29/24 Logged 09:07 Date of Service: Nov 29, 2024 Billing Provider: SANDRA GOODMAN NP Common Visit Codes: [id number] CARE 30-74 MIN SANDRA GOODMAN NP Nov 29, 2024 09:11
[2024-11-29] MEDS: MEROPENEM 1GM IVPB 50 ML IV ONE (09:12)
--- NOTE | 2024-11-29 10:13 | DVHINCON2 ---
Date Seen: Nov 29, 2024 Referring Physician SELENE Sandoval Reason for Consultation "Possible STEMI" History of Present Illness This is a 44-year-old male patient who initially presented to the emergency room with multiple chief complaints including nausea, fever, chills and testicular pain. During this admission, imaging revealed diverticular abscess and colonic perforation. The patient underwent an exploratory laparotomy with segmental colon resection and descending colon colostomy on 11/22/2024. Today, cardiology has been consulted to rule out STEMI. This morning, while ambulating to the restroom, the patient became tachycardic on purchase order checker. The bedside RN obt ained a twelve lead electrocardiogram which revealed sinus tachycardia with minimal ST-elevation to inferolateral leads. EKG deemed not to be a STEMI. A repeat twelve lead electrocardiogram reveals sinus tachycardia with similar ST segment changes to previous EKG. Initial troponin levels on admission were negative. A troponin level drawn today is also negative. The patient denies any cardiac symptoms including chest pain or shortness of breath. The patient does state that he is experiencing some discomfort around his abdominal area. The patient denies any previous medical history. Past Medical History Denies any past medical history Past Surgical History Exploratory laparotomy with segmental colon resection and descending colon colostomy on 11/22/2024 Family History: Diabetes mellitus G8 MOTHER Hypertension G8 FATHER Family History Family history reviewed. Social History Denies the use of tobacco, alcohol or illicit drugs. Allergies: Coded Allergies: NO KNOWN ALLERGIES (Unverified , 11/11/24) Home Meds No Active Prescriptions or Reported Meds Home Meds Denies taking any prescribed medications Current Medications Current Medications Medications (Trade) Dose Ordered Sig/Edis Route PRN Reason Start Time Stop Time Status Last Admin Fat Emulsion Intravenous 150 ml/Sodium Chloride 120 meq/ Sodium Phosphate 20 meq/Potassium Chloride 40 meq/ Calcium Gluconate 4.65 meq/ Magnesium Sulfate 14 meq/ Multivitamins 10 ml/Chromium/ Copper/Manganese/ Zinc 1 ml/Amino Acids/Dextrose 1,829.5 ml @ 76 mls/hr Q24H5M IV 11/28/24 22:00 11/29/24 21:59 11/28/24 22:12 Melatonin (Melatonin) 10 mg HSPRN PRN PO INSOMNIA 11/28/24 23:00 11/29/24 08:27 DC Melatonin (Melatonin) 10 mg HSPRN PO 11/29/24 22:00 11/28/24 22:58 DC Albumin Human 50 ml @ 100 mls/hr Q8H IV 11/29/24 07:45 Cancel Lactated Ringer's 2,000 ml @ 1,000 mls/hr Q2H STAT IV 11/29/24 07:34 11/29/24 09:33 DC 11/29/24 08:00 Albumin Human 50 ml @ 100 mls/hr Q8H IV 11/29/24 07:45 11/30/24 00:14 11/29/24 08:01 Meropenem 50 ml @ 17 mls/hr Q8HR IV 11/29/24 14:00 Lorazepam (Ativan Inj) 0.5 mg Q6HP PRN IV ANXIETY 11/29/24 09:00 Review of Systems Constitutional: Fever/chills Ears, Nose, & Throat: No symptom reported Eyes: No symptom reported Neurological: No symptoms reported Pulmonary/Respiratory: No symptoms reported Cardiovascular: No symptom reported Gastrointestinal: Nausea Genitourinary: No symptom reported Musculoskeletal: No symptom reported Skin: No symptom reported Psychiatric: No symptom reported Endocrine: No symptom reported Hematologic/Lymphatic: No symptom reported Vital Signs Vital Signs Date Time Temp Pulse Resp B/P (MAP) Pulse Ox O2 Delivery O2 Flow Rate FiO2 11/29/24 09:51 141 18 123/61 11/29/24 08:00 95 Nasal Cannula* 3 32 11/29/24 08:00 98.6 98.6 Physical Exam General Appearance: Cooperative. Obese Pulmonary/Respiratory: Clear, bilateral breaths sounds. Cardiovascular/Chest: Regular rate and rhythm. Peripheral Pulses: 2+ Radial (R). 2+ Radial (L). 2+ Pedal (R). 2+ Pedal (L) Abdominal Exam: Normal bowel sounds. Ankle Exam: Negative ankle edema Lower extremities: Negative lower extremity edema Neuro/Mental Status: A/OX4, coherent. Thoughts/Psych: Normal thought pattern. Appropriate mood and affect. Good judgment and insight. Appearance: No acute distress. Skin Exam: Abdominal incision, left-sided colostomy Labs/Diagnostic Data Labs Test 11/29/24 05:41 11/29/24 04:45 11/27/24 11:12 11/26/24 03:20 Range/Units POC Glucose 147 H 70-106 mg/dl White Blood Count 17.5 H 4.4-10.8 10^3/uL Red Blood Count 2.84 L 4.5-5.90 10^6/uL Hemoglobin 8.4 L 13.5-17.5 g/dL Hematocrit 27.2 #L 41.0-53.0 % Mean Corpuscular Volume 95.9 # 80.0-100.0 fL Mean Corpuscular Hemoglobin 29.8 28.0-32.0 pg Mean Corpuscular Hemoglobin Concent 31.0 L 32.0-36.0 g/dL Red Cell Distribution Width 17.0 H 11.8-14.3 % Platelet Count 329 140-450 10^3/uL Mean Platelet Volume 6.9 6.9-10.8 fL Neutrophils (%) (Auto) 37.0-80.0 % Lymphocytes (%) (Auto) 10.0-50.0 % Monocytes (%) (Auto) 0.0-12.0 % Basophils (%) (Auto) 0.0-2.0 % Neutrophils # (Auto) 1.6-8.6 10 ^3/uL Lymphocytes # (Auto) 0.4-5.4 10 ^3/uL Monocytes # (Auto) 0-1.3 10 ^3/uL Differential Total Cells Counted 100.0 100 Neutrophils % (Manual) 88 H 37.0-80.0 Band Neutrophils % (Manual) 1 Lymphocytes % (Manual) 5 L 10.0-50.0 Monocytes % (Manual) 6 0-12 Eosinophils % (Manual) 0 0-7 Basophils % (Manual) 0 0.0-2.0 Metamyelocytes % (manual) 0 Myelocytes % (Manual) 0 Promyelocytes % (Manual) 0 Blast Cells % (Manual) 0 Reactive Lymphocytes 0 Platelet Estimate Adequate Sodium Level 134 L 136-145 mmol/L Potassium Level 3.5 3.5-5.1 mmol/L Chloride Level 100 98-107 mmol/L Carbon Dioxide Level 27 20-31 mmol/L Anion Gap 7 5-15 Blood Urea Nitrogen 14 9-23 mg/dL Creatinine 0.43 L 0.700-1.30 mg/dL Glomerular Filtration Rate Calc 133 >90 mL/min BUN/Creatinine Ratio 32.6 H 10.0-20.0 Serum Glucose 131 H 74-106 mg/dL Calcium Level 7.4 L 8.7-10.4 mg/dL Phosphorus Level 2.9 2.4-5.1 mg/dL Magnesium Level 1.8 1.6-2.6 mg/dL Total Bilirubin 0.7 0.2-1.0 mg/dL Aspartate Amino Transferase (AST) 20 <34 U/L Alanine Aminotransferase (ALT) 41 H 7-40 U/L Alkaline Phosphatase 77 46-116 U/L Troponin I High Sensitivity 4 </=54 ng/L Total Protein 4.8 L 5.7-8.2 g/dL Albumin 2.7 L 3.2-4.8 g/dL Large Platelets Few Giant Platelets Few Test 11/24/24 07:04 11/24/24 03:30 11/22/24 04:07 11/21/24 15:56 Range/Units Eosinophils (%) (Auto) 0.1 0.0-7.0 % Eosinophils # (Auto) 0 0-0.8 10 ^3/uL Basophils # (Auto) 0.1 0-0.2 10 ^3/uL Nucleated Red Blood Cells 0.0 % Triglycerides Level 110 < 150 mg/dL Estimated GFR () 176 mL/min Estimated GFR (Non- 146 mL/min Prothrombin Time 12.8 H 9.3-11.8 sec Prothrombin Time INR 1.23 H 0.9-1.15 Activated Partial Thromboplast Time 31.8 24.5-34.5 SEC Test 11/19/24 12:56 11/19/24 08:49 11/17/24 04:38 11/13/24 12:10 Range/Units Vancomycin Level Trough 24.7 H 5-10 ug/mL Erythrocyte Sedimentation Rate 28 H 0-20 mm/hr Hemoglobin A1c 5.5 <5.7 % A1C Urine Opiates Screen Neg NEGATIVE Urine Fentanyl Screen Neg NEGATIVE Urine Barbiturates Screen Neg NEGATIVE Urine Phencyclidine Screen Neg NEGATIVE Urine Amphetamines Screen Neg NEGATIVE Urine Benzodiazepines Screen Neg NEGATIVE Urine Cocaine Screen Neg NEGATIVE Urine Cannabinoids Screen Neg NEGATIVE Test 11/12/24 00:25 11/11/24 20:50 11/11/24 20:15 Range/Units Influenza Type A Antigen Negative Negative Influenza Type B Antigen Negative Negative SARS-CoV-2 Antigen (Rapid) Negative NEGATIVE Urine Color Yellow Yellow Urine Clarity Clear Clear Urine pH 6.0 5.0-9.0 Urine Specific Bruce 1.021 1.001-1.035 Urine Protein 1+ H Negative Urine Ketones Negative Negative Urine Blood 2+ H Negative /uL Urine Nitrite Negative Negative Urine Bilirubin Negative Negative Urine Urobilinogen 3 H Negative mg/dL Urine Leukocyte Esterase Negative Negative /uL Urine RBC 1 0 - 3 /hpf Urine Microscopic WBC 6 H 0-3 /HPF Urine Squamous Epithelial Cells None seen <5 /hpf Urine Bacteria None seen None Seen /hpf Urine Mucus Few None Seen Urine Glucose 1+ H Normal mg/dL Lactic Acid Level 1.7 0.4-2.0 mmol/L Lipase 31 12-53 U/L Microbiology Date/Time Source Procedure Growth Status 11/22/24 10:15 Abdomen Gram Stain - Final Complete 11/22/24 10:15 Abdomen Anaerobic Culture - Final Complete 11/22/24 10:15 Aerobic Culture - Final Escherichia coli Enterococcus faecium - VRE Complete 11/18/24 10:20 Voided Urine Urine Culture - Final Complete 11/18/24 09:45 Blood Blood Culture - Final NO GROWTH AFTER 5 DAYS OF INCUBATION. Complete 11/15/24 13:15 Aspirate Gram Stain - Final Complete 11/15/24 13:15 Body Fluid Culture - Final Escherichia coli Complete Assessment Sinus tachycardia Rule out structural heart disease Sepsis s/p exploratory laparotomy with colonic perforation and intra-abdominal abscesses Possible ileus Pneumonia Acute anemia s/p PRBC transfusion Transaminitis Obesity Plan/Recommendation We will continue with the following plan/recommendations (Dr. Daly): Case discussed with . All twelve lead electrocardiograms reviewed by MD, no STEMI. At the time of assessment, the patient denies any cardiac symptoms. Troponin levels have been negative. The patient underwent a exploratory laparotomy with colon resection and colostomy secondary to intra- abdominal abscesses and colonic perforation on 11/22/2024. At this time, the patient is septic. The patient remains in sinus tachycardia on purchase order checker. We will proceed with obtaining a transthoracic echocardiogram to evaluate cardiac function as well as wall motion. In the meantime, primary team managing sepsis and new onset pneumonia with antibiotics. Plans for IR drainage given the repeat abdomen/pelvis CT shows multiloculated collections within the lower pelvis. Monitor and replete electrolytes as needed. Closely monitor hemoglobin and hematocrit and transfuse as needed. Continue with close cardiac surve illance and notify cardiology team immediately for any ECG changes. Thank you for allowing us to care for this patient. Please call with any questions or concerns. Critical care time spent: 44 minutes This medical document was created using an electronic medical record system with voice recognition software and computerized dictation system. Although this document has been carefully reviewed, there might still be some phonetic and typographical errors. Occasional wrong-word or ``sound-alike substitutions may have occurred due to the inherent limitations of voice recognition software. These areas are purely typographical due to imperfections of the software programs and do not reflect any compromise in the patient's medical care. Please read the chart carefully and recognize, using context, where these substitutions have occurred. Plan discussed with: Patient NYHA Physical activity limitations: NA Date of Service: Nov 29, 2024 Billing Provider: ISAIAH ELIAS Cardiology Common Codes: [id number] INP/OBS CARE (High) Cardiology Consultation Codes: [id number] CONSULT <45MIN ISAIAH ELIAS Nov 29, 2024 10:13
[2024-11-29] MEDS: METOPROLOL TARTRATE 1MG/1ML-5ML VIAL IV ONE (10:20)
--- NOTE | 2024-11-29 10:37 | DVHPN2 ---
Progress Note Date Seen: Nov 29, 2024 Resident Creating Document: JULIA MARES Medical Necessity Reason Pt with a Central, PICC or Fol: No Subjective Review of Systems Patient was seen today at bedside Patient still with leukocytosis but trending down, WBC today 17 point,, H&H stable CT scan of the abdomen and pelvis on 11/28/2024 revealed-Multiloculated collections within the lower pelvis, Patient had low-grade fever yesterday Surgery recommended for IR guided drainage of the collection of the fluid in the pelvis Pending blood culture Primary team ordered antibiotic meropenem Patient was seen by Surgery, recommended For Objective vital signs Vital Sign Date Time Temp Pulse Resp B/P (MAP) Pulse Ox O2 Delivery O2 Flow Rate FiO2 11/29/24 10:20 152 141/60 11/29/24 09:51 18 11/29/24 08:00 95 Nasal Cannula* 3 32 11/29/24 08:00 98.6 98.6 Total Intake and Output 11/28/24 11/28/24 11/29/24 15:00 23:00 07:00 Intake Total 1036 ml 1849 ml 923 ml Output Total 710 ml 803 ml Balance 1036 ml 1139 ml 120 ml medications Current Medications Medications Dose Ordered Sig/Edis Route Start Time Stop Time Status Last Admin Dose Admin Acetaminophen 650 mg Q6HPRN PRN PO 11/11/24 23:45 11/21/24 21:58 650 MG Piperacillin Sod/ Tazobactam Sod 100 ml @ 25 mls/hr Q8HR IV 11/12/24 06:00 UNV Ondansetron HCl 4 mg Q4HPRN PRN IV 11/12/24 07:45 11/25/24 06:32 4 MG Pantoprazole Sodium 40 mg DAILY IV 11/13/24 10:00 11/29/24 10:10 40 MG Morphine Sulfate 2 mg Q4HPRN PRN IV 11/12/24 16:45 11/29/24 09:51 2 MG Vancomycin HCl 300 ml @ 200 mls/hr Q12H IV 11/13/24 15:00 UNV Dextrose 50 ml UD IV 11/15/24 12:00 Diagnostic Test (Pha) 1 strip Q6HR 11/15/24 18:00 11/29/24 06:12 1 STRIP Insulin Human Regular FOLLOW SLIDING SCALE Q6HR SC 11/15/24 18:00 11/29/24 06:15 2 UNITS Hydralazine HCl 10 mg Q6HP PRN IV 11/16/24 15:45 11/25/24 09:31 10 MG Fat Emulsion Intravenous 200 ml/Sodium Chloride 80 meq/ Sodium Acetate 40 meq/Potassium Chloride 40 meq/ Potassium Phosphate 22 meq/ Calcium Gluconate 2.3 meq/Magnesium Sulfate 8 meq/ Multivitamins 10 ml/Chromium/ Copper/Manganese/ Zinc 1 ml/Amino Acids/Dextrose 1,582.9462 ml @ 66 mls/hr Q24H IV 11/18/24 22:00 11/19/24 21:59 Cancel Sodium Chloride 10 ml QSHIFT@10,22 IV 11/25/24 22:00 11/29/24 10:10 10 ML Amino Acids 0 ml @ 0 mls/hr PER PHARMACY IV 11/25/24 12:45 Linezolid 300 ml @ 150 mls/hr Q12HR IV 11/25/24 22:00 11/29/24 10:10 150 MLS/HR Potassium Chloride 100 ml @ 50 mls/hr Q2H IV 11/27/24 11:30 11/27/24 15:29 UNV Fat Emulsion Intravenous 150 ml/Sodium Chloride 120 meq/ Sodium Phosphate 20 meq/Potassium Chloride 40 meq/ Calcium Gluconate 4.65 meq/ Magnesium Sulfate 14 meq/ Multivitamins 10 ml/Chromium/ Copper/Manganese/ Zinc 1 ml/Amino Acids/Dextrose 1,829.5 ml @ 76 mls/hr Q24H5M IV 11/28/24 22:00 11/29/24 21:59 11/28/24 22:12 76 MLS/HR Albumin Human 50 ml @ 100 mls/hr Q8H IV 11/29/24 07:45 Cancel Albumin Human 50 ml @ 100 mls/hr Q8H IV 11/29/24 07:45 11/30/24 00:14 11/29/24 08:01 100 MLS/HR Meropenem 50 ml @ 17 mls/hr Q8HR IV 11/29/24 14:00 Lorazepam 0.5 mg Q6HP PRN IV 11/29/24 09:00 laboratory and microbiology Laboratory Tests 11/29/24 04:45 Test 11/29/24 04:45 Range/Units Serum Glucose 131 H 74-106 mg/dL Microbiology Date/Time Source Procedure Growth Status 11/28/24 09:40 Blood Blood Culture - Preliminary NO GROWTH AFTER 24 HOURS OF INCUBATION. Resulted 11/22/24 10:15 Abdomen Gram Stain - Final Complete 11/22/24 10:15 Abdomen Anaerobic Culture - Final Complete 11/22/24 10:15 Aerobic Culture - Final Escherichia coli Enterococcus faecium - VRE Complete 11/18/24 10:20 Voided Urine Urine Culture - Final Complete 11/15/24 13:15 Aspirate Gram Stain - Final Complete 11/15/24 13:15 Body Fluid Culture - Final Escherichia coli Complete Problem List/Assessment/Plan Problem List/Assessment/Plan Assessment and plan Problems(with codes): (1) perforated Diverticulitis large intestine (2) Abnormal finding on GI tract imaging (3) Abscess of sigmoid colon due to diverticulitis (4) Leukocytosis Events Patient was seen today at bedside Patient still with leukocytosis but trending down, WBC today 17 point,, H&H stable CT scan of the abdomen and pelvis on 11/28/2024 revealed-Multiloculated collections within the lower pelvis, Patient had low-grade fever yesterday Surgery recommended for IR guided drainage of the collection of the fluid in the pelvis Pending blood culture Primary team added antibiotic meropenem Prognosis Plan Surgery recommended for IR guided drainage of the collection of the fluid in the pelvis Pending blood culture Primary team added antibiotic meropenem Continue broad spectrum IV antibiotics Supportive care Incentive spirometry Surgical input appreciated On DVT prophylaxis On pantoprazole IV 40 mg daily Plan discussed with Dr. Emilee Sharma , nursing staff, Total time spent on patient evaluation, chart review, assessment and plan, discussion discussion >35 minutes Plan discussed with: Patient, Other (RN) Dietary Evaluation Review Comments: To meet at least 75% ofpt's needs, recommend TPN kcal to be increased to 1500-2000kcal range and protein to be increased to 80-90g/d. Expected Outcomes/Goals: Pt will experience a gradual wt loss at this kcal level, yet, the appropriated nutrition support of protein and kcal can enhance pt's GI perforation healing process, and help him regain normal GI functionality JULIA MARES RESIDENT Nov 29, 2024 10:37
--- NOTE | 2024-11-29 12:54 | DVH ---
CHEST RADIOGRAPH Indication: SOB, INCREASED RR AND O2 REQUIRMENT Technique: Single frontal view of the chest was obtained COMPARISON: None FINDINGS: Left PICC line tip projects over the SVC. Low lung volumes. The cardiac silhouette is enlarged. The lungs demonstrate bilateral patchy airspace opacities. The pu lmonary vasculature is prominent. Small left pleural effusion. There is no pneumothorax. IMPRESSION: As above
[2024-11-29] MEDS: LORazepam 2MG/ML-1ML VIAL IV PRN (13:13)
[2024-11-29 13:25] LABS: Base Excess -4.7 mmol/L (-2.0-3.0)
[2024-11-29] MEDS: MEROPENEM 1GM IVPB 50 ML IV SCH (14:02)
[2024-11-29] MEDS: LACTATED RINGER'S 1,000 ML IV SCH (14:02)
--- NOTE | 2024-11-29 16:13 | DVH ---
CHEST RADIOGRAPH Indication: NGT PLACEMENT CONFRIMATION Technique: Single frontal view of the chest was obtained COMPARISON: XY CHEST PORTABLE on DOS: 11/29/24, XY CHEST XRAY 1 VIEW on DOS: 11/23/24, XY CHEST PORTABL E on DOS: 11/22/24, XY CHEST XRAY 1 VIEW on DOS: 11/11/24 FINDINGS: Lines and Tubes: NG tube appears to be looped in the stomach and in the fundus. Left-sided PICC line in the superior vena cava. Lungs: Mild bibasilar atelectasis Low lung volumes Pleura: No effusion. No pneumothorax. Cardiomediastinal contours: Unremarkable Bones: Unremarkable IMPRESSION: 1. NG tube appears to be looped in the stomach in the in the fundus. Bibasilar atelectasis Low lung volumes Left-sided PICC line is in the superior vena cava
--- NOTE | 2024-11-29 20:13 | DVH ---
EXAM: US RT UPPER DVT Clinical History: HX OF DVT, SOB Comparison: US RT UPPER DVT on DOS: 11/18/24 Technique: Duplex Doppler evaluation of the deep venous systems of the right upper extremity including color D oppler and spectral/pulsed waveform analysis was performed. Findings: Incompressibility of the right axillary, cephalic, brachial, and basilic veins. Minimal vascular flow in the right axillary and brachial veins. Normal compressibility and color Doppler flow is seen in the right upper extremity veins including th e internal jugular, subclavian, radial and ulnar veins. Impression: 1. Nonocclusive DVTs in the right axial and brachial veins. 2. Superficial venous thrombi in the cephalic and basilic veins. Critical Result: DVT Findings discussed with Hanane LI at 11/29/2024 08:10 PM, and acknowledged receipt and understandi ng of the findings.
[2024-11-29 21:59] LABS: Hematocrit 34.1 % (41.0-53.0); Hemoglobin 11.2 g/dL (13.5-17.5); Mean Corpuscular Hemoglobin 27.8 pg (28.0-32.0); Mean Corpuscular Volume 84.9 fL (80.0-100.0)
[2024-11-29] MEDS ORDERED: MELATONIN 5 MG TAB PO SCH (22:00)
[2024-11-29] MEDS: HEPARIN SODIUM (PORCINE) 5000 UNITS/ML 1ML VIAL IV ONE (22:06)
[2024-11-29] MEDS: HEPARIN DRIP/D5W 100UNITS/ML 250 ML IV SCH (22:07)
[2024-11-29 22:13] LABS: INR 1.54 (0.9-1.15); Partial Thromboplastin Time 29.9 SEC (24.5-34.5); Prothrombin Time 15.6 sec (9.3-11.8)
[2024-11-29] MEDS: IOHEXOL 300 MG/ML 100ML BOTTLE IJ ONE (22:21)
[2024-11-29 22:25] LABS: Anisocytosis Slight; Total Cells Counted 100.0 (100)
[2024-11-29] MEDS: TPN PER PHARMACY IV NR (22:31)
[2024-11-30] VITALS (57 sets, daily range): BP systolic 136–162; BP diastolic 53–84; PULSE 124–145; RESP 17–43; TEMP 97.8–99.5; O2SAT 89–99
[2024-11-30 04:44] LABS: Hematocrit 30.9 % (41.0-53.0); Hemoglobin 10.2 g/dL (13.5-17.5); Mean Corpuscular Hemoglobin 27.8 pg (28.0-32.0); Mean Corpuscular Volume 84.4 fL (80.0-100.0); Nucleated Red Blood Cells % 0.1 %
[2024-11-30 05:01] LABS: Alanine Aminotransferase 25 U/L (7-40); Alkaline Phosphatase 58 U/L (46-116); Anion Gap 7 (5-15); BUN/Creatinine Ratio 38.3 (10.0-20.0); Blood Urea Nitrogen 23 mg/dL (9-23); Carbon Dioxide 26 mmol/L (20-31); Chloride 102 mmol/L (98-107); Magnesium 1.9 mg/dL (1.6-2.6); Potassium 4.3 mmol/L (3.5-5.1)
[2024-11-30 05:07] LABS: Albumin 2.9 g/dL (3.2-4.8); Bilirubin, Total 1.4 mg/dL (0.2-1.0); Calcium 8.1 mg/dL (8.7-10.4); Glucose 128 mg/dL (74-106); Sodium 135 mmol/L (136-145); Total Protein 4.8 g/dL (5.7-8.2)
[2024-11-30 05:16] LABS: INR 1.59 (0.9-1.15); Prothrombin Time 16.1 sec (9.3-11.8)
[2024-11-30 05:21] LABS: Partial Thromboplastin Time > 139.0 SEC (24.5-34.5)
[2024-11-30] MEDS: HEPARIN DRIP/D5W 100UNITS/ML 250 ML IV SCH (06:25)
--- NOTE | 2024-11-30 07:45 | ECG ---
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
--- NOTE | 2024-11-30 07:46 | ECG ---
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
[2024-11-30 09:08] LABS: INR 1.42 (0.9-1.15); Partial Thromboplastin Time 32.6 SEC (24.5-34.5); Prothrombin Time 14.5 sec (9.3-11.8)
--- NOTE | 2024-11-30 10:36 | DVHPN2 ---
Progress Note Date Seen: Nov 30, 2024 Medical Necessity Reason Pt with a Central, PICC or Fol: No Objective vital signs Vital Sign Date Time Temp Pulse Resp B/P (MAP) Pulse Ox O2 Delivery O2 Flow Rate FiO2 11/30/24 09:00 139 35 162/56 (91) 94 11/30/24 08:00 Nasal Cannula* 4 36 11/30/24 04:00 97.8 97.8 Total Intake and Output 11/29/24 11/29/24 11/30/24 15:00 23:00 07:00 Intake Total 1250 ml 1860 ml 2319 ml Output Total 1080 ml 475 ml Balance 1250 ml 780 ml 1844 ml medications Current Medications Medications Dose Ordered Sig/Edis Route Start Time Stop Time Status Last Admin Dose Admin Acetaminophen 650 mg Q6HPRN PRN PO 11/11/24 23:45 11/21/24 21:58 650 MG Piperacillin Sod/ Tazobactam Sod 100 ml @ 25 mls/hr Q8HR IV 11/12/24 06:00 UNV Ondansetron HCl 4 mg Q4HPRN PRN IV 11/12/24 07:45 11/25/24 06:32 4 MG Pantoprazole Sodium 40 mg DAILY IV 11/13/24 10:00 11/29/24 10:10 40 MG Morphine Sulfate 2 mg Q4HPRN PRN IV 11/12/24 16:45 11/29/24 22:09 2 MG Vancomycin HCl 300 ml @ 200 mls/hr Q12H IV 11/13/24 15:00 UNV Dextrose 50 ml UD IV 11/15/24 12:00 Diagnostic Test (Pha) 1 strip Q6HR 11/15/24 18:00 11/30/24 06:10 1 STRIP Insulin Human Regular FOLLOW SLIDING SCALE Q6HR SC 11/15/24 18:00 11/30/24 06:10 4 UNITS Hydralazine HCl 10 mg Q6HP PRN IV 11/16/24 15:45 11/30/24 05:13 10 MG Fat Emulsion Intravenous 200 ml/Sodium Chloride 80 meq/ Sodium Acetate 40 meq/Potassium Chloride 40 meq/ Potassium Phosphate 22 meq/ Calcium Gluconate 2.3 meq/Magnesium Sulfate 8 meq/ Multivitamins 10 ml/Chromium/ Copper/Manganese/ Zinc 1 ml/Amino Acids/Dextrose 1,582.9462 ml @ 66 mls/hr Q24H IV 11/18/24 22:00 11/19/24 21:59 Cancel Sodium Chloride 10 ml QSHIFT@10,22 IV 11/25/24 22:00 11/29/24 22:31 10 ML Amino Acids 0 ml @ 0 mls/hr PER PHARMACY IV 11/25/24 12:45 Linezolid 300 ml @ 150 mls/hr Q12HR IV 11/25/24 22:00 11/29/24 22:28 150 MLS/HR Potassium Chloride 100 ml @ 50 mls/hr Q2H IV 11/27/24 11:30 11/27/24 15:29 UNV Albumin Human 50 ml @ 100 mls/hr Q8H IV 11/29/24 07:45 Cancel Meropenem 50 ml @ 17 mls/hr Q8HR IV 11/29/24 14:00 11/30/24 05:44 17 MLS/HR Lorazepam 0.5 mg Q6HP PRN IV 11/29/24 09:00 11/30/24 01:17 0.5 MG Fat Emulsion Intravenous 150 ml/Sodium Chloride 130 meq/ Sodium Phosphate 30 meq/Potassium Chloride 50 meq/ Calcium Gluconate 6.975 meq/ Magnesium Sulfate 16 meq/ Multivitamins 10 ml/Chromium/ Copper/Manganese/ Zinc 1 ml/Amino Acids/Dextrose 1,895 ml @ 78 mls/hr [id number] IV 11/29/24 22:00 11/30/24 21:59 11/29/24 22:31 78 MLS/HR Lactated Ringer's 1,000 ml @ 150 mls/hr Q6H40M IV 11/29/24 13:45 11/29/24 22:28 150 MLS/HR Heparin Sodium/ Dextrose 250 ml @ 15 mls/hr [id number] IV 11/30/24 06:25 laboratory and microbiology Laboratory Tests 11/30/24 04:30 Test 11/30/24 04:30 Range/Units Serum Glucose 128 H 74-106 mg/dL Problem List/Assessment/Plan Problem List/Assessment/Plan 11/13/24feels well, abdomen non tender, ;leukocytosis, continue, as is, repeat CT scan in 48 hours 11/15/24 UNDERWENT PERCUTANEOUS DRAINAGE OF PERICOLONIC ABSCESS, ABDOMEN NON DISTENDED, NON TENDER. WILL FOLLOW 11/16/24 feels well, hungry, abdomen non tyender, derainage purulent, will irrigate, allow po intake 11/19/24 NO ABDOMINAL PAIN, NO NAUSEA, ABDOMEN NON TENDER, PICC LINE WAS REMOVED ,WILL CHECK CBC IN AM 11/20/24 await CBC tomorrow to decide on next step, abdomen non ternder but no BM, he feels "backed Up" will get gastrografin bowel x ray. 11/21/24 patient had a few bowel movements but feels worse, although his abdomen is not tender, his WBC is climbing and his CT scan looks much worse. I gave the patient the option to go back to NPO and TPN vs an operation with a colostomy, he choses to be operated on and get a colostomy as this "may be a faster way to get better". Operation, risks and complications explained in detail/ 11/27/24 feels better, no flatus in stoma bag, stoma viable,wound with some infection at inferior aspect of infraumbilical extent, abdomen appropriately tender, will allow ice chips and sips of water, must be out iof bed q 4 hours 11/29/24 ABDOMEN NON DISTENDED, APPROPRIATELY TENDER ,STOMA VIABLE WITH LIQUID OUTPUT BUT ONLY SMALL AMOUNT OF FLATUS. PATIENT IS BELCHING , FLUID [id number] IN THE RIGHT PELVIS IS NOT ADEQUATELY DRAINED BY THE INDWELLING DRAIN, WILL REQUEST RADIOLOGIST TO ATTEMPT MORE ADEQUATE DRAINAGE UNDER CT GUIDANCE. WILL INCREASE iv FLUIDS DUE TO TACHYCARDIA AND EVIDENCE OF BOWEL DISTENSION 11/30/24 appears tachypneic, has tachycardia. abdomen non distended, stoma viable and with liquid output but without flatus.wound ok, will ask pulm. to see, to r/o need for bronchoscopy and r/o PE. the radiologist did not feel a CT guided aspiration of pelvic fluid was feasible, will have nurses irrigate drain. will get inf. ds. consult Plan discussed with: Patient Dietary Evaluation Review Comments: To meet at least 75% ofpt's needs, recommend TPN kcal to be increased to 1500-2000kcal range and protein to be increased to 80-90g/d. Expected Outcomes/Goals: Pt will experience a gradual wt loss at this kcal level, yet, the appropriated nutrition support of protein and kcal can enhance pt's GI perforation healing process, and help him regain normal GI functionality DANA CHOW MD Nov 30, 2024 10:36
[2024-11-30 11:27] LABS: Base Excess 0.6 mmol/L (-2.0-3.0)
--- NOTE | 2024-11-30 11:36 | DVHPN2 ---
Subjective Patient denies any symptoms at this time. 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 (Security Intelligence Analyst) Changes from previous H/P or p: No Changes General: Per HPI Objective Vitals Vital Signs Date Time Temp Pulse Resp B/P (MAP) Pulse Ox O2 Delivery O2 Flow Rate FiO2 11/30/24 09:00 139 35 162/56 (91) 94 11/30/24 08:00 Nasal Cannula* 4 36 11/30/24 04:00 97.8 97.8 Intake/Output Intake and Output 11/30/24 07:00 Intake Total 5429 ml Output Total 1555 ml Balance 3874 ml Intake Oral 50 ml IV Total 5379 ml Output Urine Total 750 ml Gastric Drainage Total 800 ml Drainage Total 5 ml # Voids 1 # Bowel Movements 15 Exam Assessed in the recovery area. General Appearance: Alert, Oriented X3, Cooperative, mild distress HEENT: Atraumatic, PERRLA Lungs: Clear to auscultation, Normal air movement, Other (Nasal cannula at 4 L/min) Cardiovascular: Normal S1, Normal S2, Other (Sinus tachycardia) Abdomen: Other (Absent bowel sounds. No output from colostomy. GIOVANNY with minimal serosanguineous drainage) Genitourinary: No Apparent Abnormalities (Hernandez catheter) Musculoskeletal: Normal sensory function, Normal motor function Neuro: Normal gait, Normal speech, Sensation intact, Cranial nerves 3-12 NL Skin: Dry, Intact Psych/Mental Status: Mental status NL, Mood NL Medications Current Medications Medications Dose Ordered Sig/Edis Route Start Time Stop Time Status Last Admin Dose Admin Acetaminophen 650 mg Q6HPRN PRN PO 11/11/24 23:45 11/21/24 21:58 650 MG Piperacillin Sod/ Tazobactam Sod 100 ml @ 25 mls/hr Q8HR IV 11/12/24 06:00 UNV Ondansetron HCl 4 mg Q4HPRN PRN IV 11/12/24 07:45 11/25/24 06:32 4 MG Pantoprazole Sodium 40 mg DAILY IV 11/13/24 10:00 11/30/24 10:55 40 MG Morphine Sulfate 2 mg Q4HPRN PRN IV 11/12/24 16:45 11/29/24 22:09 2 MG Vancomycin HCl 300 ml @ 200 mls/hr Q12H IV 11/13/24 15:00 UNV Dextrose 50 ml UD IV 11/15/24 12:00 Diagnostic Test (Pha) 1 strip Q6HR 11/15/24 18:00 11/30/24 06:10 1 STRIP Insulin Human Regular FOLLOW SLIDING SCALE Q6HR SC 11/15/24 18:00 11/30/24 06:10 4 UNITS Hydralazine HCl 10 mg Q6HP PRN IV 11/16/24 15:45 11/30/24 05:13 10 MG Fat Emulsion Intravenous 200 ml/Sodium Chloride 80 meq/ Sodium Acetate 40 meq/Potassium Chloride 40 meq/ Potassium Phosphate 22 meq/ Calcium Gluconate 2.3 meq/Magnesium Sulfate 8 meq/ Multivitamins 10 ml/Chromium/ Copper/Manganese/ Zinc 1 ml/Amino Acids/Dextrose 1,582.9462 ml @ 66 mls/hr Q24H IV 11/18/24 22:00 11/19/24 21:59 Cancel Sodium Chloride 10 ml QSHIFT@10,22 IV 11/25/24 22:00 11/30/24 10:55 10 ML Amino Acids 0 ml @ 0 mls/hr PER PHARMACY IV 11/25/24 12:45 Linezolid 300 ml @ 150 mls/hr Q12HR IV 11/25/24 22:00 11/30/24 10:54 150 MLS/HR Potassium Chloride 100 ml @ 50 mls/hr Q2H IV 11/27/24 11:30 11/27/24 15:29 UNV Albumin Human 50 ml @ 100 mls/hr Q8H IV 11/29/24 07:45 Cancel Meropenem 50 ml @ 17 mls/hr Q8HR IV 11/29/24 14:00 11/30/24 05:44 17 MLS/HR Lorazepam 0.5 mg Q6HP PRN IV 11/29/24 09:00 11/30/24 01:17 0.5 MG Fat Emulsion Intravenous 150 ml/Sodium Chloride 130 meq/ Sodium Phosphate 30 meq/Potassium Chloride 50 meq/ Calcium Gluconate 6.975 meq/ Magnesium Sulfate 16 meq/ Multivitamins 10 ml/Chromium/ Copper/Manganese/ Zinc 1 ml/Amino Acids/Dextrose 1,895 ml @ 78 mls/hr [id number] IV 11/29/24 22:00 11/30/24 21:59 11/29/24 22:31 78 MLS/HR Lactated Ringer's 1,000 ml @ 150 mls/hr Q6H40M IV 11/29/24 13:45 11/29/24 22:28 150 MLS/HR Heparin Sodium/ Dextrose 250 ml @ 15 mls/hr [id number] IV 11/30/24 06:25 Fat Emulsion Intravenous 200 ml/Sodium Chloride 140 meq/ Sodium Phosphate 30 meq/Potassium Chloride 30 meq/ Calcium Gluconate 4.65 meq/ Magnesium Sulfate 18 meq/ Multivitamins 10 ml/Amino Acids/ Dextrose 1,882 ml @ 78 mls/hr Q24H8M IV 11/30/24 22:00 12/01/24 21:59 Laboratory Results Laboratory Tests 11/30/24 04:30 Chemistry Test 11/30/24 04:30 Albumin 2.9 g/dL (3.2-4.8) L Calcium Level 8.1 mg/dL (8.7-10.4) L Magnesium Level 1.9 mg/dL (1.6-2.6) Phosphorus Level 3.0 mg/dL (2.4-5.1) Total Protein 4.8 g/dL (5.7-8.2) L Coagulation Test 11/29/24 21:41 11/30/24 04:30 11/30/24 08:30 Prothrombin Time 15.6 sec (9.3-11.8) H 16.1 sec (9.3-11.8) H 14.5 sec (9.3-11.8) H Prothrombin Time INR 1.54 (0.9-1.15) H 1.59 (0.9-1.15) H 1.42 (0.9-1.15) H Activated Partial Thromboplast Time 29.9 SEC (24.5-34.5) > 139.0 SEC (24.5-34.5) *H 32.6 SEC (24.5-34.5) LFT Test 11/30/24 04:30 Alanine Aminotransferase (ALT) 25 U/L (7-40) Alkaline Phosphatase 58 U/L (46-116) Aspartate Amino Transferase (AST) 16 U/L (<34) Total Bilirubin 1.4 mg/dL (0.2-1.0) H Urinalysis Test 11/11/24 20:50 Urine Color Yellow (Yellow) Urine Clarity Clear (Clear) Urine pH 6.0 (5.0-9.0) Urine Specific [place] 1.021 (1.001-1.035) Urine Protein 1+ (Negative) H Urine Ketones Negative (Negative) Urine Blood 2+ /uL (Negative) H Urine Nitrite Negative (Negative) Urine Bilirubin Negative (Negative) Urine Urobilinogen 3 mg/dL (Negative) H Urine Leukocyte Esterase Negative /uL (Negative) Urine RBC 1 /hpf (0 - 3) Urine Microscopic WBC 6 /HPF (0-3) H Urine Squamous Epithelial Cells None seen /hpf (<5) Urine Bacteria None seen /hpf (None Seen) Urine Mucus Few (None Seen) Urine Glucose 1+ mg/dL (Normal) H Blood Gas Results Test 11/29/24 13:07 11/30/24 11:13 Arterial Blood pH 7.502 (7.350-7.450) 7.515 (7.350-7.450) FiO2 % 36.0 40.0 Microbiology Microbiology Date/Time Source Procedure Growth Status 11/28/24 09:40 Blood Blood Culture - Preliminary NO GROWTH AFTER 48 HOURS OF INCUBATION. Resulted 11/22/24 10:15 Abdomen Gram Stain - Final Complete 11/22/24 10:15 Abdomen Anaerobic Culture - Final Complete 11/22/24 10:15 Aerobic Culture - Final Escherichia coli Enterococcus faecium - VRE Complete 11/18/24 10:20 Voided Urine Urine Culture - Final Complete 11/15/24 13:15 Aspirate Gram Stain - Final Complete 11/15/24 13:15 Body Fluid Culture - Final Escherichia coli Complete Labs and/or images reviewed: Labs reviewed by me, Image(s) reviewed by me Assessment/Plan Assessment/Plan Impression: -severe sepsis secondary to perforated diverticulitis -obesity -hypokalemia -hyponatremia -right upper extremity DVT, repeat ultrasound reports resolution Plan: Events: Patient continues to be tachycardic. Worsening white blood cell count. Patient has persistent abscess. IR unable to place drain. -IV antibiotics: Continue Meropenem, Zyvox, add micafungin -continue TPN, strict NPO. The patient has nausea and vomiting, replaced NG tube -PPI -pain management -out of bed as tolerated, physical therapy -incentive spirometer -repeat labs in a.m. Critical care time spent with patient discussing and formulating plan of care: 40 minutes. This does not include time spent performing procedures. This medical document was created using an electronic medical record system with [employer] dictation system. Although this document has been carefully reviewed, there may still be some phonetic and typographical errors. These areas are purely typographical due to imperfections of the software programs, and do not reflect any compromise in the patient's medical care. Plan discussed with: Patient, Other (RN) My Orders Orders - SANDRA GOODMAN NP Procedure Category Date Status Time Abg W/ Co-Ox RT 11/29/24 Logged 11:34 Chest Portable XY 11/29/24 Resulted 11:34 Lactated Ringer's PHA 11/29/24 In Process 13:45 Rt Upper Dvt US 11/29/24 Resulted 18:01 Platelet Monitoring PETE 11/29/24 In Process 21:00 Vte Protocol Initiated PETE 11/29/24 In Process 21:00 Heparin Per [facility] 11/29/24 In Process Standardized Proce 21:00 Discontinue All Im PETE 11/29/24 In Process Injections 21:00 PTPTT LAB 11/30/24 Logged 12:25 Heparin Per Pharmacy [facility] 11/30/24 In Process Protocol 05:34 Heparin Drip/D5w PHA 11/30/24 In Process 100units/Ml 06:25 Complete Blood Count LAB 12/01/24 Verified 04:00 Communication Order ORDERS 11/30/24 Transmitted 06:30 Amino Acid PHA 11/30/24 In Process Infusion... W/Fat 22:00 Comprehensive LAB 12/01/24 Verified Metabolic Panel 04:00 Magnesium LAB 12/01/24 Verified 04:00 Phosphorus LAB 12/01/24 Verified 04:00 Triglycerides LAB 12/01/24 Verified 04:00 Tpn Per Pharmacy [facility] 11/30/24 In Process 22:00 Date of Service: Nov 30, 2024 Billing Provider: SANDRA GOODMAN NP Common Visit Codes: [id number] CARE 30-74 MIN SANDRA GOODMAN NP Nov 30, 2024 11:36
[2024-11-30 13:40] LABS: INR 1.38 (0.9-1.15); Partial Thromboplastin Time 29.7 SEC (24.5-34.5); Prothrombin Time 14.2 sec (9.3-11.8)
--- NOTE | 2024-11-30 14:49 | DVHPN2 ---
Consult Progress Note Subjective Other Systems: Patient in sinus tachycardia on environmental monitoring specialist, rate 130-140's. Objective vital signs Vital Sign Date Time Temp Pulse Resp B/P (MAP) Pulse Ox O2 Delivery O2 Flow Rate FiO2 11/30/24 13:45 138 29 92 11/30/24 12:00 Nasal Cannula* 4 36 11/30/24 04:00 97.8 97.8 Total Intake and Output 11/29/24 11/29/24 11/30/24 15:00 23:00 07:00 Intake Total 1250 ml 1860 ml 2319 ml Output Total 1080 ml 475 ml Balance 1250 ml 780 ml 1844 ml medications Current Medications Medications Dose Ordered Sig/Edis Route Start Time Stop Time Status Last Admin Dose Admin Acetaminophen 650 mg Q6HPRN PRN PO 11/11/24 23:45 11/21/24 21:58 650 MG Piperacillin Sod/ Tazobactam Sod 100 ml @ 25 mls/hr Q8HR IV 11/12/24 06:00 UNV Ondansetron HCl 4 mg Q4HPRN PRN IV 11/12/24 07:45 11/25/24 06:32 4 MG Pantoprazole Sodium 40 mg DAILY IV 11/13/24 10:00 11/30/24 10:55 40 MG Morphine Sulfate 2 mg Q4HPRN PRN IV 11/12/24 16:45 11/30/24 12:31 2 MG Vancomycin HCl 300 ml @ 200 mls/hr Q12H IV 11/13/24 15:00 UNV Dextrose 50 ml UD IV 11/15/24 12:00 Diagnostic Test (Pha) 1 strip Q6HR 11/15/24 18:00 11/30/24 12:02 1 STRIP Insulin Human Regular FOLLOW SLIDING SCALE Q6HR SC 11/15/24 18:00 11/30/24 12:03 2 UNITS Hydralazine HCl 10 mg Q6HP PRN IV 11/16/24 15:45 11/30/24 05:13 10 MG Fat Emulsion Intravenous 200 ml/Sodium Chloride 80 meq/ Sodium Acetate 40 meq/Potassium Chloride 40 meq/ Potassium Phosphate 22 meq/ Calcium Gluconate 2.3 meq/Magnesium Sulfate 8 meq/ Multivitamins 10 ml/Chromium/ Copper/Manganese/ Zinc 1 ml/Amino Acids/Dextrose 1,582.9462 ml @ 66 mls/hr Q24H IV 11/18/24 22:00 11/19/24 21:59 Cancel Sodium Chloride 10 ml QSHIFT@10,22 IV 11/25/24 22:00 11/30/24 10:55 10 ML Amino Acids 0 ml @ 0 mls/hr PER PHARMACY IV 11/25/24 12:45 Linezolid 300 ml @ 150 mls/hr Q12HR IV 11/25/24 22:00 11/30/24 10:54 150 MLS/HR Potassium Chloride 100 ml @ 50 mls/hr Q2H IV 11/27/24 11:30 11/27/24 15:29 UNV Albumin Human 50 ml @ 100 mls/hr Q8H IV 11/29/24 07:45 Cancel Meropenem 50 ml @ 17 mls/hr Q8HR IV 11/29/24 14:00 11/30/24 14:28 17 MLS/HR Lorazepam 0.5 mg Q6HP PRN IV 11/29/24 09:00 11/30/24 14:28 0.5 MG Fat Emulsion Intravenous 150 ml/Sodium Chloride 130 meq/ Sodium Phosphate 30 meq/Potassium Chloride 50 meq/ Calcium Gluconate 6.975 meq/ Magnesium Sulfate 16 meq/ Multivitamins 10 ml/Chromium/ Copper/Manganese/ Zinc 1 ml/Amino Acids/Dextrose 1,895 ml @ 78 mls/hr [id number] IV 11/29/24 22:00 11/30/24 21:59 11/29/24 22:31 78 MLS/HR Lactated Ringer's 1,000 ml @ 150 mls/hr Q6H40M IV 11/29/24 13:45 11/30/24 09:45 150 MLS/HR Heparin Sodium/ Dextrose 250 ml @ 15 mls/hr [id number] IV 11/30/24 06:25 Fat Emulsion Intravenous 200 ml/Sodium Chloride 140 meq/ Sodium Phosphate 30 meq/Potassium Chloride 30 meq/ Calcium Gluconate 4.65 meq/ Magnesium Sulfate 18 meq/ Multivitamins 10 ml/Amino Acids/ Dextrose 1,882 ml @ 78 mls/hr Q24H8M IV 11/30/24 22:00 12/01/24 21:59 Micafungin Sodium 100 mg/Sodium Chloride 100 ml @ 100 mls/hr DAILY IV 12/01/24 10:00 Examination: GENERAL:Abnormal (Generalized weakness), LUNGS:Normal, CVS:Abnormal (Sinus tachycardia), NEURO:Normal laboratory and microbiology Laboratory Tests 11/30/24 04:30 Test 11/30/24 04:30 Range/Units Serum Glucose 128 H 74-106 mg/dL Problem List/Assessment/Plan Problem List/Assessment/Plan Sinus tachycardia Rule out structural heart disease Sepsis s/p exploratory laparotomy with colonic perforation and intra-abdominal abscesses Possible ileus Pneumonia Nonocclusive DVTs in the right axial and brachial veins Acute anemia s/p PRBC transfusion Transaminitis Obesity Plan/Recommendations (Dr. Daly): Case discussed with . The patient underwent a exploratory laparotomy with colon resection and colostomy secondary to intra-abdominal abscesses and colonic perforation on 11/22/2024. At this time, the patient is septic. The patient remains in sinus tachycardia on environmental monitoring specialist. We will proceed with obtaining a transthoracic echocardiogram to evaluate cardiac function as well as wall motion. In the meantime, primary team managing severe sepsis and new onset pneumonia with antibiotics. Interventional Radiology was unable to place drain for persistent abscess due to location. Surgical team on board, ordered Infectious Disease consult for persistent sepsis. Continue with close cardiac surveillance. This medical document was created using an electronic medical record system with voice recognition software and computerized dictation system. Although this document has been carefully reviewed, there might still be some phonetic and typographical errors. Occasional wrong-word or ``sound-alike substitutions may have occurred due to the inherent limitations of voice recognition software. These areas are purely typographical due to imperfections of the software programs and do not reflect any compromise in the patient's medical care. Please read the chart carefully and recognize, using context, where these substitutions have occurred. Plan discussed with: Patient, Other (Bedside RN) Dietary Evaluation Review Comments: To meet at least 75% ofpt's needs, recommend TPN kcal to be increased to 1500-2000kcal range and protein to be increased to 80-90g/d. Expected Outcomes/Goals: Pt will experience a gradual wt loss at this kcal level, yet, the appropriated nutrition support of protein and kcal can enhance pt's GI perforation healing process, and help him regain normal GI functionality Date of Service: Nov 30, 2024 Billing Provider: ELIAS,ISAIAH ALLIED HEALTH PROFESSIONAL Common Visit Codes: [id number] INP/OBS CARE(HIGH) ISAIAH ELIAS ALLIED HEALTH PROFESSIONAL Nov 30, 2024 14:49
--- NOTE | 2024-11-30 15:06 | DVHPN2 ---
Progress Note Date Seen: Nov 30, 2024 Resident Creating Document: JULIA MARES RESIDENT Medical Necessity Reason Pt with a Central, PICC or Fol: No Subjective Review of Systems Patient was seen today at bedside Patient with persistent leukocytosis Had low-grade fever yesterday Patient was tachycardic and tachypneic Ultrasound of the right upper extremity revealed- Nonocclusive DVTs in the right axial and brachial veins. Superficial venous thrombi in the cephalic and basilic veins. radiologist did not feel a CT guided aspiration of pelvic fluid was feasible Pending ID consult for further evaluation and care Pending CT angio which rule out pulmonary embolism Objective vital signs Vital Sign Date Time Temp Pulse Resp B/P (MAP) Pulse Ox O2 Delivery O2 Flow Rate FiO2 11/30/24 13:45 138 29 92 11/30/24 12:00 Nasal Cannula* 4 36 11/30/24 04:00 97.8 97.8 Total Intake and Output 11/29/24 11/29/24 11/30/24 15:00 23:00 07:00 Intake Total 1250 ml 1860 ml 2319 ml Output Total 1080 ml 475 ml Balance 1250 ml 780 ml 1844 ml medications Current Medications Medications Dose Ordered Sig/Edis Route Start Time Stop Time Status Last Admin Dose Admin Acetaminophen 650 mg Q6HPRN PRN PO 11/11/24 23:45 11/21/24 21:58 650 MG Piperacillin Sod/ Tazobactam Sod 100 ml @ 25 mls/hr Q8HR IV 11/12/24 06:00 UNV Ondansetron HCl 4 mg Q4HPRN PRN IV 11/12/24 07:45 11/25/24 06:32 4 MG Pantoprazole Sodium 40 mg DAILY IV 11/13/24 10:00 11/30/24 10:55 40 MG Morphine Sulfate 2 mg Q4HPRN PRN IV 11/12/24 16:45 11/30/24 12:31 2 MG Vancomycin HCl 300 ml @ 200 mls/hr Q12H IV 11/13/24 15:00 UNV Dextrose 50 ml UD IV 11/15/24 12:00 Diagnostic Test (Pha) 1 strip Q6HR 11/15/24 18:00 11/30/24 12:02 1 STRIP Insulin Human Regular FOLLOW SLIDING SCALE Q6HR SC 11/15/24 18:00 11/30/24 12:03 2 UNITS Hydralazine HCl 10 mg Q6HP PRN IV 11/16/24 15:45 11/30/24 05:13 10 MG Fat Emulsion Intravenous 200 ml/Sodium Chloride 80 meq/ Sodium Acetate 40 meq/Potassium Chloride 40 meq/ Potassium Phosphate 22 meq/ Calcium Gluconate 2.3 meq/Magnesium Sulfate 8 meq/ Multivitamins 10 ml/Chromium/ Copper/Manganese/ Zinc 1 ml/Amino Acids/Dextrose 1,582.9462 ml @ 66 mls/hr Q24H IV 11/18/24 22:00 11/19/24 21:59 Cancel Sodium Chloride 10 ml QSHIFT@10,22 IV 11/25/24 22:00 11/30/24 10:55 10 ML Amino Acids 0 ml @ 0 mls/hr PER PHARMACY IV 11/25/24 12:45 Linezolid 300 ml @ 150 mls/hr Q12HR IV 11/25/24 22:00 11/30/24 10:54 150 MLS/HR Potassium Chloride 100 ml @ 50 mls/hr Q2H IV 11/27/24 11:30 11/27/24 15:29 UNV Albumin Human 50 ml @ 100 mls/hr Q8H IV 11/29/24 07:45 Cancel Meropenem 50 ml @ 17 mls/hr Q8HR IV 11/29/24 14:00 11/30/24 14:28 17 MLS/HR Lorazepam 0.5 mg Q6HP PRN IV 11/29/24 09:00 11/30/24 14:28 0.5 MG Fat Emulsion Intravenous 150 ml/Sodium Chloride 130 meq/ Sodium Phosphate 30 meq/Potassium Chloride 50 meq/ Calcium Gluconate 6.975 meq/ Magnesium Sulfate 16 meq/ Multivitamins 10 ml/Chromium/ Copper/Manganese/ Zinc 1 ml/Amino Acids/Dextrose 1,895 ml @ 78 mls/hr [id number] IV 11/29/24 22:00 11/30/24 21:59 11/29/24 22:31 78 MLS/HR Lactated Ringer's 1,000 ml @ 150 mls/hr Q6H40M IV 11/29/24 13:45 11/30/24 09:45 150 MLS/HR Heparin Sodium/ Dextrose 250 ml @ 15 mls/hr [id number] IV 11/30/24 06:25 Fat Emulsion Intravenous 200 ml/Sodium Chloride 140 meq/ Sodium Phosphate 30 meq/Potassium Chloride 30 meq/ Calcium Gluconate 4.65 meq/ Magnesium Sulfate 18 meq/ Multivitamins 10 ml/Amino Acids/ Dextrose 1,882 ml @ 78 mls/hr Q24H8M IV 11/30/24 22:00 12/01/24 21:59 Micafungin Sodium 100 mg/Sodium Chloride 100 ml @ 100 mls/hr DAILY IV 12/01/24 10:00 laboratory and microbiology Laboratory Tests 11/30/24 04:30 Test 11/30/24 04:30 Range/Units Serum Glucose 128 H 74-106 mg/dL Microbiology Date/Time Source Procedure Growth Status 11/28/24 09:40 Blood Blood Culture - Preliminary NO GROWTH AFTER 48 HOURS OF INCUBATION. Resulted 11/22/24 10:15 Abdomen Gram Stain - Final Complete 11/22/24 10:15 Abdomen Anaerobic Culture - Final Complete 11/22/24 10:15 Aerobic Culture - Final Escherichia coli Enterococcus faecium - VRE Complete 11/18/24 10:20 Voided Urine Urine Culture - Final Complete 11/15/24 13:15 Aspirate Gram Stain - Final Complete 11/15/24 13:15 Body Fluid Culture - Final Escherichia coli Complete Problem List/Assessment/Plan Problem List/Assessment/Plan Assessment and plan Problems(with codes): (1) perforated Diverticulitis large intestine (2) Abnormal finding on GI tract imaging (3) Abscess of sigmoid colon due to diverticulitis (4) Leukocytosis Events Patient with persistent leukocytosis Had low-grade fever yesterday Patient was tachycardic and tachypneic Repeat blood culture no growth so far Ultrasound of the right upper extremity revealed- Nonocclusive DVTs in the right axial and brachial veins. Superficial venous thrombi in the cephalic and basilic veins. radiologist did not feel a CT guided aspiration of pelvic fluid was feasible Pending ID consult for further evaluation and care Pending CT angio which rule out pulmonary embolism Pending the abdominal x-ray series with Gastrografin Prognosis Plan Prednisolone just to rule out pulmonary embolism Pending ID consult Continue broad spectrum IV antibiotics Supportive care Incentive spirometry Surgical input appreciated On DVT prophylaxis On pantoprazole IV 40 mg daily Plan discussed with Dr. Emilee Sharma , nursing staff, Total time spent on patient evaluation, chart review, assessment and plan, discussion discussion >35 minutes Plan discussed with: Patient, Other (RN) Dietary Evaluation Review Comments: To meet at least 75% ofpt's needs, recommend TPN kcal to be increased to 1500-2000kcal range and protein to be increased to 80-90g/d. Expected Outcomes/Goals: Pt will experience a gradual wt loss at this kcal level, yet, the appropriated nutrition support of protein and kcal can enhance pt's GI perforation healing process, and help him regain normal GI functionality JULIA MARES RESIDENT Nov 30, 2024 15:06
--- NOTE | 2024-11-30 19:33 | DVH ---
Procedure: XY SMALL BOWEL SERIES-W GASTROGRA Reason for study/Clinical History: post op ileus Comparison Study: None Technique: Single contrast small bowel series performed. FINDINGS/IMPRESSION: Initial veteran appeals reviewer view demonstrates a drain projecting over the left lower quadrant, surgical clips proje cting over the right lower quadrant and contrast within the colon. A gastric tube projects over the b raissa of the stomach. There is contrast seen in the stomach and small bowel loops. Contrast enters the large bowel by 3 ho urs and is seen in the colostomy bag, going against a diagnosis of bowel obstruction.
--- NOTE | 2024-11-30 22:34 | DVH ---
Procedure: CT CT ANGIO CHEST CONTRAST Reason for study/Clinical History: r/o PE Comparison Study: CT CT ANGIO CHEST CONTRAST on DOS: 11/18/24 Exam Date: 11/30/2024 09:29 PM Radiation Dose Information: CT Dose: CTDI volume is 26.02 mGy. Dose-length product is 3545.73 mGy*cm Contrast: Type of contrast: Omnipaque 350 Contrast inject: 100 mL Contrast wasted:0 TECHNIQUE: After the uneventful administration of intravenous contrast intravenously, CT imaging was performed through the chest. Coronal and sagittal reformations were performed by the technologist. FINDINGS: Lower Neck: Visualized portions of the thyroid gland are unremarkable. Aorta and Vasculature: Normal caliber of thoracic aorta. Lymph Nodes: No enlarged intrathoracic lymph nodes. Mediastinum: Heart size is normal. There is no pericardial effusion. The esophagus is unremarkable. Lungs: Very poor inspiratory effort. Motion artifact. Pleural effusions bilaterally. Musculoskeletal: No acute osseous abnormality. Upper abdomen: Limited portions of the upper abdomen are unremarkable. IMPRESSION: 1. Elevation of the diaphragm with ascites. 2. Enteric tube in the stomach. 3. Small left pleural effusion. 4. No pulmonary emboli noted no saddle emboli. HS:Y All CT scans at this medical facility are performed using dose modulation techniques as appropriate t o a performed exam including the following: Automated exposure control was utilized; adjustment of th e MA and/or KV according to patient size; and use of iterative reconstruction technique.
[2024-11-30] MEDS: TPN PER PHARMACY IV NR (22:42)
[2024-11-30] MEDS: GASTROGRAFIN 120 ML SOL ONE (22:43)
[2024-11-30] MEDS: IOHEXOL 350 MG/ML 100ML IJ ONE (22:45)
[2024-12-01] VITALS (73 sets, daily range): BP systolic 117–174; BP diastolic 53–93; PULSE 115–145; RESP 13–52; TEMP 97.9–99.3; O2SAT 92–100
[2024-12-01 06:03] LABS: Hematocrit 24.8 % (41.0-53.0); Hemoglobin 8.5 g/dL (13.5-17.5); Mean Corpuscular Hemoglobin 29.2 pg (28.0-32.0); Mean Corpuscular Volume 85.5 fL (80.0-100.0); Nucleated Red Blood Cells % 0.1 %
[2024-12-01 06:20] LABS: Alanine Aminotransferase 21 U/L (7-40); Alkaline Phosphatase 55 U/L (46-116); Anion Gap 7 (5-15); BUN/Creatinine Ratio 55.0 (10.0-20.0); Bilirubin, Total 0.7 mg/dL (0.2-1.0); Blood Urea Nitrogen 22 mg/dL (9-23); Carbon Dioxide 28 mmol/L (20-31); Chloride 106 mmol/L (98-107); Magnesium 2.0 mg/dL (1.6-2.6); Potassium 3.9 mmol/L (3.5-5.1); Sodium 141 mmol/L (136-145)
[2024-12-01 06:22] LABS: Albumin 2.6 g/dL (3.2-4.8); Calcium 7.9 mg/dL (8.7-10.4); Glucose 154 mg/dL (74-106); Total Protein 4.4 g/dL (5.7-8.2)
[2024-12-01 06:40] LABS: Triglycerides 101 mg/dL (< 150)
[2024-12-01] MEDS: MICAFUNGIN SODIUM 100 MG in SODIUM CHL 0.9% 100 ML IV SCH (09:32)
--- NOTE | 2024-12-01 10:13 | DVHPN2 ---
Subjective Patient denies any symptoms at this time. 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 (Counter Clerk) Changes from previous H/P or p: No Changes General: Per HPI Objective Vitals Vital Signs Date Time Temp Pulse Resp B/P (MAP) Pulse Ox O2 Delivery O2 Flow Rate FiO2 12/01/24 09:35 122 12 117/69 12/01/24 08:00 99.3 95 99.3 12/01/24 08:00 Nasal Cannula* 4 36 Intake/Output Intake and Output 12/01/24 07:00 Intake Total 5807 ml Output Total 3165 ml Balance 2642 ml Intake Oral 0 ml IV Total 5807 ml Output Urine Total 1500 ml Gastric Drainage Total 450 ml Drainage Total 15 ml Other 1200 ml Exam Assessed in the recovery area. General Appearance: Alert, Oriented X3, Cooperative, mild distress HEENT: Atraumatic, PERRLA Lungs: Clear to auscultation, Normal air movement, Other (Nasal cannula at 4 L/min) Cardiovascular: Normal S1, Normal S2, Other (Sinus tachycardia) Abdomen: Other (Absent bowel sounds. No output from colostomy. GIOVANNY with minimal serosanguineous drainage) Genitourinary: No Apparent Abnormalities (Hernandez catheter) Musculoskeletal: Normal sensory function, Normal motor function Neuro: Normal gait, Normal speech, Sensation intact, Cranial nerves 3-12 NL Skin: Dry, Intact Psych/Mental Status: Mental status NL, Mood NL Medications Current Medications Medications Dose Ordered Sig/Edis Route Start Time Stop Time Status Last Admin Dose Admin Acetaminophen 650 mg Q6HPRN PRN PO 11/11/24 23:45 11/21/24 21:58 650 MG Piperacillin Sod/ Tazobactam Sod 100 ml @ 25 mls/hr Q8HR IV 11/12/24 06:00 UNV Ondansetron HCl 4 mg Q4HPRN PRN IV 11/12/24 07:45 11/25/24 06:32 4 MG Pantoprazole Sodium 40 mg DAILY IV 11/13/24 10:00 12/01/24 09:32 40 MG Morphine Sulfate 2 mg Q4HPRN PRN IV 11/12/24 16:45 12/01/24 09:35 2 MG Vancomycin HCl 300 ml @ 200 mls/hr Q12H IV 11/13/24 15:00 UNV Dextrose 50 ml UD IV 11/15/24 12:00 Diagnostic Test (Pha) 1 strip Q6HR 11/15/24 18:00 12/01/24 05:55 1 STRIP Insulin Human Regular FOLLOW SLIDING SCALE Q6HR SC 11/15/24 18:00 12/01/24 05:52 2 UNITS Hydralazine HCl 10 mg Q6HP PRN IV 11/16/24 15:45 11/30/24 05:13 10 MG Fat Emulsion Intravenous 200 ml/Sodium Chloride 80 meq/ Sodium Acetate 40 meq/Potassium Chloride 40 meq/ Potassium Phosphate 22 meq/ Calcium Gluconate 2.3 meq/Magnesium Sulfate 8 meq/ Multivitamins 10 ml/Chromium/ Copper/Manganese/ Zinc 1 ml/Amino Acids/Dextrose 1,582.9462 ml @ 66 mls/hr Q24H IV 11/18/24 22:00 11/19/24 21:59 Cancel Sodium Chloride 10 ml QSHIFT@10,22 IV 11/25/24 22:00 12/01/24 09:32 10 ML Amino Acids 0 ml @ 0 mls/hr PER PHARMACY IV 11/25/24 12:45 Linezolid 300 ml @ 150 mls/hr Q12HR IV 11/25/24 22:00 12/01/24 09:32 150 MLS/HR Potassium Chloride 100 ml @ 50 mls/hr Q2H IV 11/27/24 11:30 11/27/24 15:29 UNV Albumin Human 50 ml @ 100 mls/hr Q8H IV 11/29/24 07:45 Cancel Meropenem 50 ml @ 17 mls/hr Q8HR IV 11/29/24 14:00 12/01/24 05:50 17 MLS/HR Lorazepam 0.5 mg Q6HP PRN IV 11/29/24 09:00 12/01/24 01:15 0.5 MG Lactated Ringer's 1,000 ml @ 150 mls/hr Q6H40M IV 11/29/24 13:45 12/01/24 04:49 150 MLS/HR Heparin Sodium/ Dextrose 250 ml @ 15 mls/hr [id number] IV 11/30/24 06:25 Fat Emulsion Intravenous 200 ml/Sodium Chloride 140 meq/ Sodium Phosphate 30 meq/Potassium Chloride 30 meq/ Calcium Gluconate 4.65 meq/ Magnesium Sulfate 18 meq/ Multivitamins 10 ml/Amino Acids/ Dextrose 1,882 ml @ 78 mls/hr Q24H8M IV 11/30/24 22:00 12/01/24 21:59 11/30/24 22:42 78 MLS/HR Micafungin Sodium 100 mg/Sodium Chloride 100 ml @ 100 mls/hr DAILY IV 12/01/24 10:00 12/01/24 09:32 100 MLS/HR Laboratory Results Laboratory Tests 12/01/24 05:45 Chemistry Test 12/01/24 05:45 Albumin 2.6 g/dL (3.2-4.8) L Calcium Level 7.9 mg/dL (8.7-10.4) L Magnesium Level 2.0 mg/dL (1.6-2.6) Phosphorus Level 2.8 mg/dL (2.4-5.1) Total Protein 4.4 g/dL (5.7-8.2) L Coagulation Test 11/30/24 13:10 Prothrombin Time 14.2 sec (9.3-11.8) H Prothrombin Time INR 1.38 (0.9-1.15) H Activated Partial Thromboplast Time 29.7 SEC (24.5-34.5) Lipid panel Test 12/01/24 05:45 Triglycerides Level 101 mg/dL (< 150) LFT Test 12/01/24 05:45 Alanine Aminotransferase (ALT) 21 U/L (7-40) Alkaline Phosphatase 55 U/L (46-116) Aspartate Amino Transferase (AST) 19 U/L (<34) Total Bilirubin 0.7 mg/dL (0.2-1.0) Urinalysis Test 11/11/24 20:50 Urine Color Yellow (Yellow) Urine Clarity Clear (Clear) Urine pH 6.0 (5.0-9.0) Urine Specific [place] 1.021 (1.001-1.035) Urine Protein 1+ (Negative) H Urine Ketones Negative (Negative) Urine Blood 2+ /uL (Negative) H Urine Nitrite Negative (Negative) Urine Bilirubin Negative (Negative) Urine Urobilinogen 3 mg/dL (Negative) H Urine Leukocyte Esterase Negative /uL (Negative) Urine RBC 1 /hpf (0 - 3) Urine Microscopic WBC 6 /HPF (0-3) H Urine Squamous Epithelial Cells None seen /hpf (<5) Urine Bacteria None seen /hpf (None Seen) Urine Mucus Few (None Seen) Urine Glucose 1+ mg/dL (Normal) H Blood Gas Results Test 11/30/24 11:13 Arterial Blood pH 7.515 (7.350-7.450) FiO2 % 40.0 Microbiology Microbiology Date/Time Source Procedure Growth Status 11/28/24 09:40 Blood Blood Culture - Preliminary NO GROWTH AFTER 72 HOURS OF INCUBATION. Resulted 11/22/24 10:15 Abdomen Gram Stain - Final Complete 11/22/24 10:15 Abdomen Anaerobic Culture - Final Complete 11/22/24 10:15 Aerobic Culture - Final Escherichia coli Enterococcus faecium - VRE Complete 11/18/24 10:20 Voided Urine Urine Culture - Final Complete 11/15/24 13:15 Aspirate Gram Stain - Final Complete 11/15/24 13:15 Body Fluid Culture - Final Escherichia coli Complete Labs and/or images reviewed: Labs reviewed by me, Image(s) reviewed by me Assessment/Plan Assessment/Plan Impression: -severe sepsis secondary to perforated diverticulitis -obesity -hypokalemia -hyponatremia -right upper extremity DVT, repeat ultrasound reports resolution Plan: Events: CT angiogram negative for PE. White blood cell count improving. Small-bowel follow-through with noted contrast in the colostomy. Patient reports he has had his colostomy empty twice. Advance diet per surgery. -IV antibiotics: Continue Meropenem, Zyvox, add micafungin -continue TPN, strict NPO. The patient has nausea and vomiting, replaced NG tube -PPI -pain management -out of bed as tolerated, physical therapy -incentive spirometer -repeat labs in a.m. Critical care time spent with patient discussing and formulating plan of care: 40 minutes. This does not include time spent performing procedures. This medical document was created using an electronic medical record system with [employer] dictation system. Although this document has been carefully reviewed, there may still be some phonetic and typographical errors. These areas are purely typographical due to imperfections of the software programs, and do not reflect any compromise in the patient's medical care. Plan discussed with: Patient, Other (RN) My Orders Orders - SANDRA GOODMAN [employer] Procedure Category Date Status Time Amino Acid PHA 11/30/24 In Process Infusion... W/Fat 22:00 Tpn Per Pharmacy PETE 11/30/24 In Process 22:00 Transfer Orders XFER 11/30/24 Transmitted 11:36 Micafungin Sodium PHA 12/01/24 In Process (Mycamine) 10:00 Date of Service: Dec 01, 2024 Billing Provider: SANDRA GOODMAN NP Common Visit Codes: [id number] CARE 30-74 MIN SANDRA GOODMAN NP Dec 01, 2024 10:13
--- NOTE | 2024-12-01 11:15 | DVHPN2 ---
Progress Note Date Seen: Dec 01, 2024 Medical Necessity Reason Pt with a Central, PICC or Fol: No Objective vital signs Vital Sign Date Time Temp Pulse Resp B/P (MAP) Pulse Ox O2 Delivery O2 Flow Rate FiO2 12/01/24 10:30 121 15 96 12/01/24 10:00 Nasal Cannula* 4 36 12/01/24 08:00 99.3 99.3 Total Intake and Output 11/30/24 11/30/24 12/01/24 15:00 23:00 07:00 Intake Total 1996 ml 1865 ml 2191 ml Output Total 1610 ml 1555 ml Balance 1996 ml 255 ml 636 ml medications Current Medications Medications Dose Ordered Sig/Edis Route Start Time Stop Time Status Last Admin Dose Admin Acetaminophen 650 mg Q6HPRN PRN PO 11/11/24 23:45 11/21/24 21:58 650 MG Piperacillin Sod/ Tazobactam Sod 100 ml @ 25 mls/hr Q8HR IV 11/12/24 06:00 UNV Ondansetron HCl 4 mg Q4HPRN PRN IV 11/12/24 07:45 11/25/24 06:32 4 MG Pantoprazole Sodium 40 mg DAILY IV 11/13/24 10:00 12/01/24 09:32 40 MG Morphine Sulfate 2 mg Q4HPRN PRN IV 11/12/24 16:45 12/01/24 09:35 2 MG Vancomycin HCl 300 ml @ 200 mls/hr Q12H IV 11/13/24 15:00 UNV Dextrose 50 ml UD IV 11/15/24 12:00 Diagnostic Test (Pha) 1 strip Q6HR 11/15/24 18:00 12/01/24 05:55 1 STRIP Insulin Human Regular FOLLOW SLIDING SCALE Q6HR SC 11/15/24 18:00 12/01/24 05:52 2 UNITS Hydralazine HCl 10 mg Q6HP PRN IV 11/16/24 15:45 11/30/24 05:13 10 MG Fat Emulsion Intravenous 200 ml/Sodium Chloride 80 meq/ Sodium Acetate 40 meq/Potassium Chloride 40 meq/ Potassium Phosphate 22 meq/ Calcium Gluconate 2.3 meq/Magnesium Sulfate 8 meq/ Multivitamins 10 ml/Chromium/ Copper/Manganese/ Zinc 1 ml/Amino Acids/Dextrose 1,582.9462 ml @ 66 mls/hr Q24H IV 11/18/24 22:00 11/19/24 21:59 Cancel Sodium Chloride 10 ml QSHIFT@10,22 IV 11/25/24 22:00 12/01/24 09:32 10 ML Amino Acids 0 ml @ 0 mls/hr PER PHARMACY IV 11/25/24 12:45 Linezolid 300 ml @ 150 mls/hr Q12HR IV 11/25/24 22:00 12/01/24 09:32 150 MLS/HR Potassium Chloride 100 ml @ 50 mls/hr Q2H IV 11/27/24 11:30 11/27/24 15:29 UNV Albumin Human 50 ml @ 100 mls/hr Q8H IV 11/29/24 07:45 Cancel Meropenem 50 ml @ 17 mls/hr Q8HR IV 11/29/24 14:00 12/01/24 05:50 17 MLS/HR Lorazepam 0.5 mg Q6HP PRN IV 11/29/24 09:00 12/01/24 01:15 0.5 MG Lactated Ringer's 1,000 ml @ 150 mls/hr Q6H40M IV 11/29/24 13:45 12/01/24 04:49 150 MLS/HR Heparin Sodium/ Dextrose 250 ml @ 15 mls/hr [id number] IV 11/30/24 06:25 Fat Emulsion Intravenous 200 ml/Sodium Chloride 140 meq/ Sodium Phosphate 30 meq/Potassium Chloride 30 meq/ Calcium Gluconate 4.65 meq/ Magnesium Sulfate 18 meq/ Multivitamins 10 ml/Amino Acids/ Dextrose 1,882 ml @ 78 mls/hr Q24H8M IV 11/30/24 22:00 12/01/24 21:59 11/30/24 22:42 78 MLS/HR Micafungin Sodium 100 mg/Sodium Chloride 100 ml @ 100 mls/hr DAILY IV 12/01/24 10:00 12/01/24 09:32 100 MLS/HR Fat Emulsion Intravenous 200 ml/Sodium Chloride 130 meq/ Sodium Phosphate 30 meq/Potassium Acetate 30 meq/ Calcium Gluconate 4.65 meq/ Magnesium Sulfate 20 meq/ Multivitamins 10 ml/Chromium/ Copper/Manganese/ Zinc 1 ml/Amino Acids/Dextrose 1,881 ml @ 78 mls/hr Q24H7M IV 12/01/24 22:00 12/02/24 22:06 laboratory and microbiology Laboratory Tests 12/01/24 05:45 Test 12/01/24 05:45 Range/Units Serum Glucose 154 H 74-106 mg/dL Problem List/Assessment/Plan Problem List/Assessment/Plan 11/13/24feels well, abdomen non tender, ;leukocytosis, continue, as is, repeat CT scan in 48 hours 11/15/24 UNDERWENT PERCUTANEOUS DRAINAGE OF PERICOLONIC ABSCESS, ABDOMEN NON DISTENDED, NON TENDER. WILL FOLLOW 11/16/24 feels well, hungry, abdomen non tyender, derainage purulent, will irrigate, allow po intake 11/19/24 NO ABDOMINAL PAIN, NO NAUSEA, ABDOMEN NON TENDER, PICC LINE WAS REMOVED ,WILL CHECK CBC IN AM 11/20/24 await CBC tomorrow to decide on next step, abdomen non ternder but no BM, he feels "backed Up" will get gastrografin bowel x ray. 11/21/24 patient had a few bowel movements but feels worse, although his abdomen is not tender, his WBC is climbing and his CT scan looks much worse. I gave the patient the option to go back to NPO and TPN vs an operation with a colostomy, he choses to be operated on and get a colostomy as this "may be a faster way to get better". Operation, risks and complications explained in detail/ 11/27/24 feels better, no flatus in stoma bag, stoma viable,wound with some infection at inferior aspect of infraumbilical extent, abdomen appropriately tender, will allow ice chips and sips of water, must be out iof bed q 4 hours 11/29/24 ABDOMEN NON DISTENDED, APPROPRIATELY TENDER ,STOMA VIABLE WITH LIQUID OUTPUT BUT ONLY SMALL AMOUNT OF FLATUS. PATIENT IS BELCHING , FLUID [id number] IN THE RIGHT PELVIS IS NOT ADEQUATELY DRAINED BY THE INDWELLING DRAIN, WILL REQUEST RADIOLOGIST TO ATTEMPT MORE ADEQUATE DRAINAGE UNDER CT GUIDANCE. WILL INCREASE iv FLUIDS DUE TO TACHYCARDIA AND EVIDENCE OF BOWEL DISTENSION 11/30/24 appears tachypneic, has tachycardia. abdomen non distended, stoma viable and with liquid output but without flatus.wound ok, will ask pulm. to see, to r/o need for bronchoscopy and r/o PE. the radiologist did not feel a CT guided aspiration of pelvic fluid was feasible, will have nurses irrigate drain. will get inf. ds. consult 12/01/24, IMPROVED, DC NGT START PO CLEAR LIQUIDS Plan discussed with: Patient, Other Dietary Evaluation Review Comments: To meet at least 75% ofpt's needs, recommend TPN kcal to be increased to 1500-2000kcal range and protein to be increased to 80-90g/d. Expected Outcomes/Goals: Pt will experience a gradual wt loss at this kcal level, yet, the appropriated nutrition support of protein and kcal can enhance pt's GI perforation healing process, and help him regain normal GI functionality DANA CHOW MD Dec 01, 2024 11:15
[2024-12-01] MEDS: CARVEDILOL 12.5 MG TAB PO SCH ×2 (17:40→18:10)
[2024-12-01 17:48] LABS: Hemoglobin 7.6 g/dL (13.5-17.5); Nucleated Red Blood Cells % 0.0 %
[2024-12-01 17:49] LABS: Hematocrit 23.3 % (41.0-53.0); Mean Corpuscular Hemoglobin 28.2 pg (28.0-32.0); Mean Corpuscular Volume 86.4 fL (80.0-100.0)
--- NOTE | 2024-12-01 19:19 | DVHPN2 ---
Consult Progress Note Subjective Patient reports: No new complaints Objective vital signs Vital Sign Date Time Temp Pulse Resp B/P (MAP) Pulse Ox O2 Delivery O2 Flow Rate FiO2 12/01/24 18:40 124 138/63 12/01/24 18:15 98.8 27 97 98.8 12/01/24 18:00 Nasal Cannula* 4 36 Total Intake and Output 11/30/24 11/30/24 12/01/24 15:00 23:00 07:00 Intake Total 1996 ml 1865 ml 2191 ml Output Total 1610 ml 1555 ml Balance 1996 ml 255 ml 636 ml medications Current Medications Medications Dose Ordered Sig/Edis Route Start Time Stop Time Status Last Admin Dose Admin Acetaminophen 650 mg Q6HPRN PRN PO 11/11/24 23:45 11/21/24 21:58 650 MG Piperacillin Sod/ Tazobactam Sod 100 ml @ 25 mls/hr Q8HR IV 11/12/24 06:00 UNV Ondansetron HCl 4 mg Q4HPRN PRN IV 11/12/24 07:45 11/25/24 06:32 4 MG Pantoprazole Sodium 40 mg DAILY IV 11/13/24 10:00 12/01/24 09:32 40 MG Morphine Sulfate 2 mg Q4HPRN PRN IV 11/12/24 16:45 12/01/24 14:52 2 MG Vancomycin HCl 300 ml @ 200 mls/hr Q12H IV 11/13/24 15:00 UNV Dextrose 50 ml UD IV 11/15/24 12:00 Diagnostic Test (Pha) 1 strip Q6HR 11/15/24 18:00 12/01/24 17:15 1 STRIP Insulin Human Regular FOLLOW SLIDING SCALE Q6HR SC 11/15/24 18:00 12/01/24 11:50 2 UNITS Hydralazine HCl 10 mg Q6HP PRN IV 11/16/24 15:45 12/01/24 15:50 10 MG Fat Emulsion Intravenous 200 ml/Sodium Chloride 80 meq/ Sodium Acetate 40 meq/Potassium Chloride 40 meq/ Potassium Phosphate 22 meq/ Calcium Gluconate 2.3 meq/Magnesium Sulfate 8 meq/ Multivitamins 10 ml/Chromium/ Copper/Manganese/ Zinc 1 ml/Amino Acids/Dextrose 1,582.9462 ml @ 66 mls/hr Q24H IV 11/18/24 22:00 11/19/24 21:59 Cancel Sodium Chloride 10 ml QSHIFT@10,22 IV 11/25/24 22:00 12/01/24 09:32 10 ML Amino Acids 0 ml @ 0 mls/hr PER PHARMACY IV 11/25/24 12:45 Linezolid 300 ml @ 150 mls/hr Q12HR IV 11/25/24 22:00 12/01/24 09:32 150 MLS/HR Potassium Chloride 100 ml @ 50 mls/hr Q2H IV 11/27/24 11:30 11/27/24 15:29 UNV Albumin Human 50 ml @ 100 mls/hr Q8H IV 11/29/24 07:45 Cancel Meropenem 50 ml @ 17 mls/hr Q8HR IV 11/29/24 14:00 12/01/24 14:49 17 MLS/HR Lorazepam 0.5 mg Q6HP PRN IV 11/29/24 09:00 12/01/24 01:15 0.5 MG Lactated Ringer's 1,000 ml @ 150 mls/hr Q6H40M IV 11/29/24 13:45 12/01/24 12:25 150 MLS/HR Fat Emulsion Intravenous 200 ml/Sodium Chloride 140 meq/ Sodium Phosphate 30 meq/Potassium Chloride 30 meq/ Calcium Gluconate 4.65 meq/ Magnesium Sulfate 18 meq/ Multivitamins 10 ml/Amino Acids/ Dextrose 1,882 ml @ 78 mls/hr Q24H8M IV 11/30/24 22:00 12/01/24 21:59 11/30/24 22:42 78 MLS/HR Micafungin Sodium 100 mg/Sodium Chloride 100 ml @ 100 mls/hr DAILY IV 12/01/24 10:00 12/01/24 09:32 100 MLS/HR Fat Emulsion Intravenous 200 ml/Sodium Chloride 130 meq/ Sodium Phosphate 30 meq/Potassium Acetate 30 meq/ Calcium Gluconate 4.65 meq/ Magnesium Sulfate 20 meq/ Multivitamins 10 ml/Chromium/ Copper/Manganese/ Zinc 1 ml/Amino Acids/Dextrose 1,881 ml @ 78 mls/hr Q24H7M IV 12/01/24 22:00 12/02/24 22:06 Carvedilol 25 mg Q12HR PO 12/01/24 17:41 12/01/24 18:10 25 MG Examination: CVS:Abnormal laboratory and microbiology Laboratory Tests 12/01/24 17:30 12/01/24 05:45 Test 12/01/24 05:45 Range/Units Serum Glucose 154 H 74-106 mg/dL Problem List/Assessment/Plan Problem List/Assessment/Plan Sinus tachycardia Rule out structural heart disease Sepsis s/p exploratory laparotomy with colonic perforation and intra-abdominal abscesses Possible ileus Pneumonia Nonocclusive DVTs in the right axial and brachial veins Acute anemia s/p PRBC transfusion Transaminitis Obesity Plan/Recommendations (Dr. Daly): 12/01/24 Pending echo Case discussed with . The patient underwent a exploratory laparotomy with colon resection and colostomy secondary to intra-abdominal abscesses and colonic perforation on 11/22/2024. At this time, the patient is septic. The patient remains in sinus tachycardia on monitor and storage bin tender. We will proceed with obtaining a transthoracic echocardiogram to evaluate cardiac function as well as wall motion. In the meantime, primary team managing severe sepsis and new onset pneumonia with antibiotics. Interventional Radiology was unable to place drain for persistent abscess due to location. Surgical team on board, ordered Infectious Disease consult for persistent sepsis. Continue with close cardiac surveillance. This medical document was created using an electronic medical record system with voice recognition software and computerized dictation system. Although this document has been carefully reviewed, there might still be some phonetic and typographical errors. Occasional wrong-word or ``sound-alike substitutions may have occurred due to the inherent limitations of voice recognition software. These areas are purely typographical due to imperfections of the software programs and do not reflect any compromise in the patient's medical care. Please read the chart carefully and recognize, using context, where these substitutions have occurred. Plan discussed with: Patient, Other (Bedside RN) Plan discussed with: Patient Dietary Evaluation Review Comments: To meet at least 75% ofpt's needs, recommend TPN kcal to be increased to 1500-2000kcal range and protein to be increased to 80-90g/d. Expected Outcomes/Goals: Pt will experience a gradual wt loss at this kcal level, yet, the appropriated nutrition support of protein and kcal can enhance pt's GI perforation healing process, and help him regain normal GI functionality Date of Service: Dec 01, 2024 Billing Provider: ESTEFANIA DALY Sr., MD Common Visit Codes: CONSULT ONLY Consultation Codes: [id number] CONSULT <60MIN THONG RAHMAN [facility] Dec 01, 2024 19:19
[2024-12-01] MEDS: TPN PER PHARMACY IV NR (21:36)
[2024-12-02] VITALS (53 sets, daily range): BP systolic 110–179; BP diastolic 59–119; PULSE 99–120; RESP 16–35; TEMP 97.9–100.5; O2SAT 90–100
[2024-12-02 06:42] LABS: Alanine Aminotransferase 32 U/L (7-40); Anion Gap 8 (5-15); BUN/Creatinine Ratio 44.2 (10.0-20.0); Blood Urea Nitrogen 19 mg/dL (9-23); Carbon Dioxide 26 mmol/L (20-31); Chloride 105 mmol/L (98-107); Magnesium 2.1 mg/dL (1.6-2.6); Potassium 3.9 mmol/L (3.5-5.1); Sodium 139 mmol/L (136-145)
[2024-12-02 06:44] LABS: Albumin 2.5 g/dL (3.2-4.8); Bilirubin, Total 1.4 mg/dL (0.2-1.0); Calcium 7.6 mg/dL (8.7-10.4); Glucose 139 mg/dL (74-106); Total Protein 4.4 g/dL (5.7-8.2)
[2024-12-02 06:46] LABS: Alkaline Phosphatase 71 U/L (46-116)
[2024-12-02 07:10] LABS: Hematocrit 24.8 % (41.0-53.0); Hemoglobin 8.2 g/dL (13.5-17.5)
[2024-12-02 07:11] LABS: Mean Corpuscular Hemoglobin 28.6 pg (28.0-32.0); Mean Corpuscular Volume 86.5 fL (80.0-100.0); Nucleated Red Blood Cells % 0.1 %
[2024-12-02] MEDS: IPRATROPIUM BROM 0.5 MG/2.5ML INH SOL NEB SCH (09:11)
[2024-12-02] MEDS: LEVALBUTEROL HCL 1.25 MG/3 ML NEB NEB SCH (09:11)
[2024-12-02] MEDS: ENOXAPARIN SOD 150 MG/1 ML SYRINGE SC SCH (10:00)
--- NOTE | 2024-12-02 10:23 | DVHPN2 ---
Consult Progress Note Subjective Patient reports: No new complaints Other Systems: Sinus tachycardia in 110s Objective vital signs Vital Sign Date Time Temp Pulse Resp B/P (MAP) Pulse Ox O2 Delivery O2 Flow Rate FiO2 12/02/24 09:38 110 143/85 12/02/24 09:17 22 97 12/02/24 09:11 Nasal Cannula 2.0 12/02/24 09:11 28 12/02/24 08:00 99.1 99.1 Total Intake and Output 12/01/24 12/01/24 12/02/24 15:00 23:00 07:00 Intake Total 2184 ml 2373 ml 2250 ml Output Total 1060 ml 910 ml Balance 2184 ml 1313 ml 1340 ml medications Current Medications Medications Dose Ordered Sig/Edis Route Start Time Stop Time Status Last Admin Dose Admin Acetaminophen 650 mg Q6HPRN PRN PO 11/11/24 23:45 12/02/24 00:24 650 MG Piperacillin Sod/ Tazobactam Sod 100 ml @ 25 mls/hr Q8HR IV 11/12/24 06:00 UNV Ondansetron HCl 4 mg Q4HPRN PRN IV 11/12/24 07:45 11/25/24 06:32 4 MG Pantoprazole Sodium 40 mg DAILY IV 11/13/24 10:00 12/02/24 09:37 40 MG Morphine Sulfate 2 mg Q4HPRN PRN IV 11/12/24 16:45 12/02/24 05:25 2 MG Vancomycin HCl 300 ml @ 200 mls/hr Q12H IV 11/13/24 15:00 UNV Dextrose 50 ml UD IV 11/15/24 12:00 Diagnostic Test (Pha) 1 strip Q6HR 11/15/24 18:00 12/02/24 05:31 1 STRIP Insulin Human Regular FOLLOW SLIDING SCALE Q6HR SC 11/15/24 18:00 12/02/24 06:40 2 UNITS Hydralazine HCl 10 mg Q6HP PRN IV 11/16/24 15:45 12/01/24 15:50 10 MG Fat Emulsion Intravenous 200 ml/Sodium Chloride 80 meq/ Sodium Acetate 40 meq/Potassium Chloride 40 meq/ Potassium Phosphate 22 meq/ Calcium Gluconate 2.3 meq/Magnesium Sulfate 8 meq/ Multivitamins 10 ml/Chromium/ Copper/Manganese/ Zinc 1 ml/Amino Acids/Dextrose 1,582.9462 ml @ 66 mls/hr Q24H IV 11/18/24 22:00 11/19/24 21:59 Cancel Sodium Chloride 10 ml QSHIFT@10,22 IV 11/25/24 22:00 12/02/24 09:38 10 ML Amino Acids 0 ml @ 0 mls/hr PER PHARMACY IV 11/25/24 12:45 Linezolid 300 ml @ 150 mls/hr Q12HR IV 11/25/24 22:00 12/02/24 09:38 150 MLS/HR Potassium Chloride 100 ml @ 50 mls/hr Q2H IV 11/27/24 11:30 11/27/24 15:29 UNV Albumin Human 50 ml @ 100 mls/hr Q8H IV 11/29/24 07:45 Cancel Meropenem 50 ml @ 17 mls/hr Q8HR IV 11/29/24 14:00 12/02/24 05:31 17 MLS/HR Lorazepam 0.5 mg Q6HP PRN IV 11/29/24 09:00 12/01/24 22:43 0.5 MG Lactated Ringer's 1,000 ml @ 150 mls/hr Q6H40M IV 11/29/24 13:45 12/02/24 05:24 150 MLS/HR Micafungin Sodium 100 mg/Sodium Chloride 100 ml @ 100 mls/hr DAILY IV 12/01/24 10:00 12/02/24 08:32 100 MLS/HR Fat Emulsion Intravenous 200 ml/Sodium Chloride 130 meq/ Sodium Phosphate 30 meq/Potassium Acetate 30 meq/ Calcium Gluconate 4.65 meq/ Magnesium Sulfate 20 meq/ Multivitamins 10 ml/Chromium/ Copper/Manganese/ Zinc 1 ml/Amino Acids/Dextrose 1,881 ml @ 78 mls/hr Q24H7M IV 12/01/24 22:00 12/02/24 22:06 12/01/24 21:36 78 MLS/HR Carvedilol 25 mg Q12HR PO 12/01/24 17:41 12/02/24 09:38 25 MG Enoxaparin Sodium 140 mg Q12HR SC 12/02/24 10:00 Ipratropium [place] 0.5 mg Q6HR NEB 12/02/24 09:00 12/02/24 09:11 0.5 MG Levalbuterol HCl 0.625 mg Q6HR NEB 12/02/24 09:00 12/02/24 09:11 0.625 MG laboratory and microbiology Laboratory Tests 12/02/24 04:59 Test 12/02/24 04:59 Range/Units Serum Glucose 139 H 74-106 mg/dL Problem List/Assessment/Plan Problem List/Assessment/Plan Sinus tachycardia Rule out structural heart disease Sepsis s/p exploratory laparotomy with colonic perforation and intra-abdominal abscesses Possible ileus Pneumonia Nonocclusive DVTs in the right axial and brachial veins Acute anemia s/p PRBC transfusion Transaminitis Obesity Plan/Recommendations (Dr. Daly): A 44-year-old male was admitted for sepsis status post exploratory laparotomy with colon resection. The patient remains in sinus tachycardia with heart rate of 110 beats per minute. A transthoracic echocardiogram will be obtained to evaluate cardiac function in his is in ongoing management. This medical document was created using an electronic medical record system with voice recognition software and computerized dictation system. Although this document has been carefully reviewed, there might still be some phonetic and typographical errors. Occasional wrong-word or ``sound-alike substitutions may have occurred due to the inherent limitations of voice recognition software. These areas are purely typographical due to imperfections of the software programs and do not reflect any compromise in the patient's medical care. Please read the chart carefully and recognize, using context, where these substitutions have occurred. Plan discussed with: Patient, Other (Bedside RN) Plan discussed with: Patient, Other (RN) Dietary Evaluation Review Comments: To meet at least 75% ofpt's needs, recommend TPN kcal to be increased to 1500-2000kcal range and protein to be increased to 80-90g/d. Expected Outcomes/Goals: Pt will experience a gradual wt loss at this kcal level, yet, the appropriated nutrition support of protein and kcal can enhance pt's GI perforation healing process, and help him regain normal GI functionality Date of Service: Dec 02, 2024 Billing Provider: ESTEFANIA DALY Sr., MD Common Visit Codes: CONSULT ONLY Consultation Codes: [id number] CONSULT <45MIN THONG RAHMAN [employer] Dec 02, 2024 10:23
--- NOTE | 2024-12-02 10:29 | DVH ---
CHEST XRAY: 1 view(s) was obtained HISTORY: CHF COMPARISON: XY CHEST PORTABLE on DOS: 11/29/24, XY CHEST PORTABLE on DOS: 11/29/24, XY CHEST XRAY 1 VIE W on DOS: 11/23/24, XY CHEST PORTABLE on DOS: 11/22/24, XY CHEST XRAY 1 VIEW on DOS: 11/11/24 FINDINGS: Hypoventilation with bibasilar atelectasis. Heart border is normal in size. Imaged upper abdomen and osseous structures are unremarkable. IMPRESSION: 1. Hypoventilation with bibasilar atelectasis
--- NOTE | 2024-12-02 11:26 | DVHSR ---
APPROVED REPORT EXAM: Two-dimensional and M-mode echocardiogram with Doppler and color Doppler. Blood Pressure: 159/80 mmHg INDICATION Evaluate cardiac function, assess wall motion RISK FACTORS Obesity: Height: 6'0", Weight: 311 DIMENSIONS LVDd4.1 (3.8-5.7cm)LA (2D)3.5 (1.9-4.0cm)Aortic Root3.9 (2.0-3.7cm) LVDs2.8 (2.5-4.0cm)LA (MM) (1.9-4.0cm)Aortic Cusp Exc1.8 (1.5-2.0cm) EF (%) 65.0 (55-70%)Rt. Atrium3.8 (1.9-4.0cm)Asc. Aorta cm IVSd0.9 (0.7-1.1cm)RV (D) (1.8-2.4cm) PWd1.0 (0.7-1.1cm) Mitral Valve MitralMitral Stenosis E wave0.97m/sMV Mean GR.mmHg A wave1.06m/sMV Peak GR.mmHg E/A ratio0.92D MVAcm2 DECEL [id number] 1/2 [place] Aortic Valve Aortic ValveAortic Stenosis V11.35m/Elaina Mean GR.7mmHg V21.72m/Elaina Peak GR.12mmHg LVOT Diameter2.2 (1.8-2.4cm)Doppler AVA2.98cm2 Pulmonic Valve V21.13m/s Other Information Technically limited study due to body habitus. Conclusion NORMAL LV EF AND IS 65% NORMAL VALVES NORMAL RV FUNCTION NO EFFUSION
[2024-12-02] MEDS ORDERED: LEVALBUTEROL HCL 1.25 MG/3 ML NEB NEB SCH (12:00)
[2024-12-02] MEDS ORDERED: IPRATROPIUM BROM 0.5 MG/2.5ML INH SOL NEB SCH (12:00)
--- NOTE | 2024-12-02 12:06 | DVHPN2 ---
Subjective Patient denies any symptoms at this time. 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 General Appearance: Alert, Oriented X3, Cooperative, mild distress HEENT: Atraumatic, PERRLA Lungs: Clear to auscultation, Normal air movement, Other (Nasal cannula at 4 L/min) Cardiovascular: Normal S1, Normal S2, Other (Sinus tachycardia) Abdomen: Other (Absent bowel sounds. No output from colostomy. GIOVANNY with minimal serosanguineous drainage) Genitourinary: No Apparent Abnormalities (Hernandez catheter) Musculoskeletal: Normal sensory function, Normal motor function Neuro: Normal gait, Normal speech, Sensation intact, Cranial nerves 3-12 NL Skin: Dry, Intact Psych/Mental Status: Mental status NL, Mood NL Medications Current Medications Medications Dose Ordered Sig/Edis Route Start Time Stop Time Status Last Admin Dose Admin Acetaminophen 650 mg Q6HPRN PRN PO 11/11/24 23:45 12/02/24 00:24 650 MG Piperacillin Sod/ Tazobactam Sod 100 ml @ 25 mls/hr Q8HR IV 11/12/24 06:00 UNV Ondansetron HCl 4 mg Q4HPRN PRN IV 11/12/24 07:45 11/25/24 06:32 4 MG Pantoprazole Sodium 40 mg DAILY IV 11/13/24 10:00 12/02/24 09:37 40 MG Morphine Sulfate 2 mg Q4HPRN PRN IV 11/12/24 16:45 12/02/24 11:12 2 MG Vancomycin HCl 300 ml @ 200 mls/hr Q12H IV 11/13/24 15:00 UNV Dextrose 50 ml UD IV 11/15/24 12:00 Diagnostic Test (Pha) 1 strip Q6HR 11/15/24 18:00 12/02/24 11:18 1 STRIP Insulin Human Regular FOLLOW SLIDING SCALE Q6HR SC 11/15/24 18:00 12/02/24 11:18 2 UNITS Hydralazine HCl 10 mg Q6HP PRN IV 11/16/24 15:45 12/01/24 15:50 10 MG Fat Emulsion Intravenous 200 ml/Sodium Chloride 80 meq/ Sodium Acetate 40 meq/Potassium Chloride 40 meq/ Potassium Phosphate 22 meq/ Calcium Gluconate 2.3 meq/Magnesium Sulfate 8 meq/ Multivitamins 10 ml/Chromium/ Copper/Manganese/ Zinc 1 ml/Amino Acids/Dextrose 1,582.9462 ml @ 66 mls/hr Q24H IV 11/18/24 22:00 11/19/24 21:59 Cancel Sodium Chloride 10 ml QSHIFT@10,22 IV 11/25/24 22:00 12/02/24 09:38 10 ML Amino Acids 0 ml @ 0 mls/hr PER PHARMACY IV 11/25/24 12:45 Linezolid 300 ml @ 150 mls/hr Q12HR IV 11/25/24 22:00 12/02/24 09:38 150 MLS/HR Potassium Chloride 100 ml @ 50 mls/hr Q2H IV 11/27/24 11:30 11/27/24 15:29 UNV Albumin Human 50 ml @ 100 mls/hr Q8H IV 11/29/24 07:45 Cancel Meropenem 50 ml @ 17 mls/hr Q8HR IV 11/29/24 14:00 12/02/24 05:31 17 MLS/HR Lorazepam 0.5 mg Q6HP PRN IV 11/29/24 09:00 12/01/24 22:43 0.5 MG Lactated Ringer's 1,000 ml @ 150 mls/hr Q6H40M IV 11/29/24 13:45 12/02/24 05:24 150 MLS/HR Micafungin Sodium 100 mg/Sodium Chloride 100 ml @ 100 mls/hr DAILY IV 12/01/24 10:00 12/02/24 08:32 100 MLS/HR Fat Emulsion Intravenous 200 ml/Sodium Chloride 130 meq/ Sodium Phosphate 30 meq/Potassium Acetate 30 meq/ Calcium Gluconate 4.65 meq/ Magnesium Sulfate 20 meq/ Multivitamins 10 ml/Chromium/ Copper/Manganese/ Zinc 1 ml/Amino Acids/Dextrose 1,881 ml @ 78 mls/hr Q24H7M IV 12/01/24 22:00 12/02/24 22:06 12/01/24 21:36 78 MLS/HR Carvedilol 25 mg Q12HR PO 12/01/24 17:41 12/02/24 09:38 25 MG Enoxaparin Sodium 140 mg Q12HR SC 12/02/24 10:00 Ipratropium [place] 0.5 mg Q6HR NEB 12/02/24 09:00 12/02/24 09:11 0.5 MG Levalbuterol HCl 0.625 mg Q6HR NEB 12/02/24 09:00 12/02/24 09:11 0.625 MG Fat Emulsion Intravenous 200 ml/Sodium Chloride 130 meq/ Sodium Phosphate 30 meq/Potassium Acetate 30 meq/ Calcium Gluconate 4.65 meq/ Magnesium Sulfate 20 meq/ Multivitamins 10 ml/Amino Acids/ Dextrose 1,880 ml @ 78 mls/hr Q24H7M IV 12/02/24 22:00 12/03/24 21:59 Laboratory Results Laboratory Tests 12/02/24 04:59 Chemistry Test 12/02/24 04:59 Albumin 2.5 g/dL (3.2-4.8) L Calcium Level 7.6 mg/dL (8.7-10.4) L Magnesium Level 2.1 mg/dL (1.6-2.6) Phosphorus Level 3.1 mg/dL (2.4-5.1) Total Protein 4.4 g/dL (5.7-8.2) L LFT Test 12/02/24 04:59 Alanine Aminotransferase (ALT) 32 U/L (7-40) Alkaline Phosphatase 71 U/L (46-116) Aspartate Amino Transferase (AST) 44 U/L (<34) H Total Bilirubin 1.4 mg/dL (0.2-1.0) H Urinalysis Test 11/11/24 20:50 Urine Color Yellow (Yellow) Urine Clarity Clear (Clear) Urine pH 6.0 (5.0-9.0) Urine Specific [place] 1.021 (1.001-1.035) Urine Protein 1+ (Negative) H Urine Ketones Negative (Negative) Urine Blood 2+ /uL (Negative) H Urine Nitrite Negative (Negative) Urine Bilirubin Negative (Negative) Urine Urobilinogen 3 mg/dL (Negative) H Urine Leukocyte Esterase Negative /uL (Negative) Urine RBC 1 /hpf (0 - 3) Urine Microscopic WBC 6 /HPF (0-3) H Urine Squamous Epithelial Cells None seen /hpf (<5) Urine Bacteria None seen /hpf (None Seen) Urine Mucus Few (None Seen) Urine Glucose 1+ mg/dL (Normal) H Microbiology Microbiology Date/Time Source Procedure Growth Status 11/28/24 09:40 Blood Blood Culture - Preliminary NO GROWTH AFTER 72 HOURS OF INCUBATION. Resulted 11/22/24 10:15 Abdomen Gram Stain - Final Complete 11/22/24 10:15 Abdomen Anaerobic Culture - Final Complete 11/22/24 10:15 Aerobic Culture - Final Escherichia coli Enterococcus faecium - VRE Complete 11/18/24 10:20 Voided Urine Urine Culture - Final Complete 11/15/24 13:15 Aspirate Gram Stain - Final Complete 11/15/24 13:15 Body Fluid Culture - Final Escherichia coli Complete Labs and/or images reviewed: Labs reviewed by me, Image(s) reviewed by me Assessment/Plan Assessment/Plan Impression: -severe sepsis secondary to perforated diverticulitis -obesity -hypokalemia -hyponatremia -right upper extremity DVT, repeat ultrasound reports resolution Plan: Events: Heart rate improved, probably secondary to large dose of carvedilol that was placed on patient. We will decrease dose to 12.5 mg p.o. daily. ID consultation placed. No new orders. Patient is started on clear liquid diet, tolerating. Positive output from colostomy. -IV antibiotics: Continue Meropenem, Zyvox, add micafungin -continue TPN. Stop LR -PPI -pain management -out of bed as tolerated, physical therapy -incentive spirometer -repeat labs in a.m. Critical care time spent with patient discussing and formulating plan of care: 40 minutes. This does not include time spent performing procedures. This medical document was created using an electronic medical record system with [employer] dictation system. Although this document has been carefully reviewed, there may still be some phonetic and typographical errors. These areas are purely typographical due to imperfections of the software programs, and do not reflect any compromise in the patient's medical care. Plan discussed with: Patient, Other (RN) My Orders Orders - SANDRA GOODMAN NP Procedure Category Date Status Time Chest Xray 1 View XY 12/02/24 Resulted 08:13 Ipratropium Medneb PHA 12/02/24 In Process (Atrovent Medneb) 09:00 Levalbuterol Hcl PHA 12/02/24 In Process (Xopenex Medneb) 09:00 Enoxaparin Sodium PHA 12/02/24 In Process (Lovenox) 10:00 Amino Acid PHA 12/02/24 In Process Infusion... W/Fat 22:00 Carvedilol Tablet PHA 12/02/24 Verified (Coreg Tablet) 22:00 Complete Blood Count LAB 12/03/24 Verified 04:00 Date of Service: Dec 02, 2024 Billing Provider: SANDRA GOODMAN NP Common Visit Codes: [id number] CARE 30-74 MIN SANDRA GOODMAN NP Dec 02, 2024 12:06
[2024-12-02] MEDS: FUROSEMIDE 40 MG/4 ML VIAL IV ONE (12:09)
--- NOTE | 2024-12-02 12:24 | DVHPN2 ---
Progress Note Date Seen: Dec 02, 2024 Medical Necessity Reason Pt with a Central, PICC or Fol: No Objective vital signs Vital Sign Date Time Temp Pulse Resp B/P (MAP) Pulse Ox O2 Delivery O2 Flow Rate FiO2 12/02/24 12:09 110/59 12/02/24 11:42 98 20 12/02/24 10:00 94 Nasal Cannula* 2 28 12/02/24 09:20 99.1 99.1 Total Intake and Output 12/01/24 12/01/24 12/02/24 15:00 23:00 07:00 Intake Total 2184 ml 2373 ml 2250 ml Output Total 1060 ml 910 ml Balance 2184 ml 1313 ml 1340 ml medications Current Medications Medications Dose Ordered Sig/Edis Route Start Time Stop Time Status Last Admin Dose Admin Acetaminophen 650 mg Q6HPRN PRN PO 11/11/24 23:45 12/02/24 00:24 650 MG Piperacillin Sod/ Tazobactam Sod 100 ml @ 25 mls/hr Q8HR IV 11/12/24 06:00 UNV Ondansetron HCl 4 mg Q4HPRN PRN IV 11/12/24 07:45 11/25/24 06:32 4 MG Pantoprazole Sodium 40 mg DAILY IV 11/13/24 10:00 12/02/24 09:37 40 MG Morphine Sulfate 2 mg Q4HPRN PRN IV 11/12/24 16:45 12/02/24 11:12 2 MG Vancomycin HCl 300 ml @ 200 mls/hr Q12H IV 11/13/24 15:00 UNV Dextrose 50 ml UD IV 11/15/24 12:00 Diagnostic Test (Pha) 1 strip Q6HR 11/15/24 18:00 12/02/24 11:18 1 STRIP Insulin Human Regular FOLLOW SLIDING SCALE Q6HR SC 11/15/24 18:00 12/02/24 11:18 2 UNITS Hydralazine HCl 10 mg Q6HP PRN IV 11/16/24 15:45 12/01/24 15:50 10 MG Fat Emulsion Intravenous 200 ml/Sodium Chloride 80 meq/ Sodium Acetate 40 meq/Potassium Chloride 40 meq/ Potassium Phosphate 22 meq/ Calcium Gluconate 2.3 meq/Magnesium Sulfate 8 meq/ Multivitamins 10 ml/Chromium/ Copper/Manganese/ Zinc 1 ml/Amino Acids/Dextrose 1,582.9462 ml @ 66 mls/hr Q24H IV 11/18/24 22:00 11/19/24 21:59 Cancel Sodium Chloride 10 ml QSHIFT@10,22 IV 11/25/24 22:00 12/02/24 09:38 10 ML Amino Acids 0 ml @ 0 mls/hr PER PHARMACY IV 11/25/24 12:45 Linezolid 300 ml @ 150 mls/hr Q12HR IV 11/25/24 22:00 12/02/24 09:38 150 MLS/HR Potassium Chloride 100 ml @ 50 mls/hr Q2H IV 11/27/24 11:30 11/27/24 15:29 UNV Albumin Human 50 ml @ 100 mls/hr Q8H IV 11/29/24 07:45 Cancel Meropenem 50 ml @ 17 mls/hr Q8HR IV 11/29/24 14:00 12/02/24 05:31 17 MLS/HR Lorazepam 0.5 mg Q6HP PRN IV 11/29/24 09:00 12/01/24 22:43 0.5 MG Micafungin Sodium 100 mg/Sodium Chloride 100 ml @ 100 mls/hr DAILY IV 12/01/24 10:00 12/02/24 08:32 100 MLS/HR Fat Emulsion Intravenous 200 ml/Sodium Chloride 130 meq/ Sodium Phosphate 30 meq/Potassium Acetate 30 meq/ Calcium Gluconate 4.65 meq/ Magnesium Sulfate 20 meq/ Multivitamins 10 ml/Chromium/ Copper/Manganese/ Zinc 1 ml/Amino Acids/Dextrose 1,881 ml @ 78 mls/hr Q24H7M IV 12/01/24 22:00 12/02/24 22:06 12/01/24 21:36 78 MLS/HR Enoxaparin Sodium 140 mg Q12HR SC 12/02/24 10:00 Ipratropium [place] 0.5 mg Q6HR NEB 12/02/24 09:00 12/02/24 09:11 0.5 MG Levalbuterol HCl 0.625 mg Q6HR NEB 12/02/24 09:00 12/02/24 09:11 0.625 MG Fat Emulsion Intravenous 200 ml/Sodium Chloride 130 meq/ Sodium Phosphate 30 meq/Potassium Acetate 40 meq/ Calcium Gluconate 4.65 meq/ Magnesium Sulfate 20 meq/ Multivitamins 10 ml/Amino Acids/ Dextrose 1,885 ml @ 78 mls/hr [id number] IV 12/02/24 22:00 12/03/24 21:59 Carvedilol 12.5 mg Q12HR PO 12/02/24 22:00 laboratory and microbiology Laboratory Tests 12/02/24 04:59 Test 12/02/24 04:59 Range/Units Serum Glucose 139 H 74-106 mg/dL Problem List/Assessment/Plan Problem List/Assessment/Plan 11/13/24feels well, abdomen non tender, ;leukocytosis, continue, as is, repeat CT scan in 48 hours 11/15/24 UNDERWENT PERCUTANEOUS DRAINAGE OF PERICOLONIC ABSCESS, ABDOMEN NON DISTENDED, NON TENDER. WILL FOLLOW 11/16/24 feels well, hungry, abdomen non tyender, derainage purulent, will irrigate, allow po intake 11/19/24 NO ABDOMINAL PAIN, NO NAUSEA, ABDOMEN NON TENDER, PICC LINE WAS REMOVED ,WILL CHECK CBC IN AM 11/20/24 await CBC tomorrow to decide on next step, abdomen non ternder but no BM, he feels "backed Up" will get gastrografin bowel x ray. 11/21/24 patient had a few bowel movements but feels worse, although his abdomen is not tender, his WBC is climbing and his CT scan looks much worse. I gave the patient the option to go back to NPO and TPN vs an operation with a colostomy, he choses to be operated on and get a colostomy as this "may be a faster way to get better". Operation, risks and complications explained in detail/ 11/27/24 feels better, no flatus in stoma bag, stoma viable,wound with some infection at inferior aspect of infraumbilical extent, abdomen appropriately tender, will allow ice chips and sips of water, must be out iof bed q 4 hours 11/29/24 ABDOMEN NON DISTENDED, APPROPRIATELY TENDER ,STOMA VIABLE WITH LIQUID OUTPUT BUT ONLY SMALL AMOUNT OF FLATUS. PATIENT IS BELCHING , FLUID [id number] IN THE RIGHT PELVIS IS NOT ADEQUATELY DRAINED BY THE INDWELLING DRAIN, WILL REQUEST RADIOLOGIST TO ATTEMPT MORE ADEQUATE DRAINAGE UNDER CT GUIDANCE. WILL INCREASE iv FLUIDS DUE TO TACHYCARDIA AND EVIDENCE OF BOWEL DISTENSION 11/30/24 appears tachypneic, has tachycardia. abdomen non distended, stoma viable and with liquid output but without flatus.wound ok, will ask pulm. to see, to r/o need for bronchoscopy and r/o PE. the radiologist did not feel a CT guided aspiration of pelvic fluid was feasible, will have nurses irrigate drain. will get inf. ds. consult 12/01/24, IMPROVED, DC NGT START PO CLEAR LIQUIDS 12/02/24 BP and Heart Rate controlled by Beta blockade, abdomen OK,stoma viable and functioning, advance diet and activity Plan discussed with: Patient Dietary Evaluation Review Comments: To meet at least 75% ofpt's needs, recommend TPN kcal to be increased to 1500-2000kcal range and protein to be increased to 80-90g/d. Expected Outcomes/Goals: Pt will experience a gradual wt loss at this kcal level, yet, the appropriated nutrition support of protein and kcal can enhance pt's GI perforation healing process, and help him regain normal GI functionality DANA CHOW MD Dec 02, 2024 12:24
--- NOTE | 2024-12-02 14:37 | DVHPN2 ---
Progress Note - Dictate Date Seen: Dec 02, 2024 Medical Necessity Reason Pt with a Central, PICC or Fol: No Subjective Postop day 10 s/p exploratory laparotomy with partial sigmoid resection ;Descending colostomy for perforated diverticulitis with abscess Patient seen in [facility] , awake alert complaining of some difficulty breathing Patient is requiring supplemental oxygenation Colostomy is functional ; drainage tube output minimal Patient is tolerating a clear liquid diet, NG tube was discontinued vital signs Vital Sign Date Time Temp Pulse Resp B/P (MAP) Pulse Ox O2 Delivery O2 Flow Rate FiO2 12/02/24 14:00 105 12/02/24 14:00 29 132/70 (90) 96 12/02/24 14:00 Nasal Cannula* 2 28 12/02/24 12:00 98.8 98.8 Total Intake and Output 12/01/24 12/01/24 12/02/24 15:00 23:00 07:00 Intake Total 2184 ml 2373 ml 2250 ml Output Total 1060 ml 910 ml Balance 2184 ml 1313 ml 1340 ml medications Current Medications Medications Dose Ordered Sig/Edis Route Start Time Stop Time Status Last Admin Dose Admin Acetaminophen 650 mg Q6HPRN PRN PO 11/11/24 23:45 12/02/24 00:24 650 MG Piperacillin Sod/ Tazobactam Sod 100 ml @ 25 mls/hr Q8HR IV 11/12/24 06:00 UNV Ondansetron HCl 4 mg Q4HPRN PRN IV 11/12/24 07:45 11/25/24 06:32 4 MG Pantoprazole Sodium 40 mg DAILY IV 11/13/24 10:00 12/02/24 09:37 40 MG Morphine Sulfate 2 mg Q4HPRN PRN IV 11/12/24 16:45 12/02/24 11:12 2 MG Vancomycin HCl 300 ml @ 200 mls/hr Q12H IV 11/13/24 15:00 UNV Dextrose 50 ml UD IV 11/15/24 12:00 Diagnostic Test (Pha) 1 strip Q6HR 11/15/24 18:00 12/02/24 11:18 1 STRIP Insulin Human Regular FOLLOW SLIDING SCALE Q6HR SC 11/15/24 18:00 12/02/24 11:18 2 UNITS Hydralazine HCl 10 mg Q6HP PRN IV 11/16/24 15:45 12/01/24 15:50 10 MG Fat Emulsion Intravenous 200 ml/Sodium Chloride 80 meq/ Sodium Acetate 40 meq/Potassium Chloride 40 meq/ Potassium Phosphate 22 meq/ Calcium Gluconate 2.3 meq/Magnesium Sulfate 8 meq/ Multivitamins 10 ml/Chromium/ Copper/Manganese/ Zinc 1 ml/Amino Acids/Dextrose 1,582.9462 ml @ 66 mls/hr Q24H IV 11/18/24 22:00 11/19/24 21:59 Cancel Sodium Chloride 10 ml QSHIFT@10,22 IV 11/25/24 22:00 12/02/24 09:38 10 ML Amino Acids 0 ml @ 0 mls/hr PER PHARMACY IV 11/25/24 12:45 Linezolid 300 ml @ 150 mls/hr Q12HR IV 11/25/24 22:00 12/02/24 09:38 150 MLS/HR Potassium Chloride 100 ml @ 50 mls/hr Q2H IV 11/27/24 11:30 11/27/24 15:29 UNV Albumin Human 50 ml @ 100 mls/hr Q8H IV 11/29/24 07:45 Cancel Meropenem 50 ml @ 17 mls/hr Q8HR IV 11/29/24 14:00 12/02/24 13:30 17 MLS/HR Lorazepam 0.5 mg Q6HP PRN IV 11/29/24 09:00 12/01/24 22:43 0.5 MG Micafungin Sodium 100 mg/Sodium Chloride 100 ml @ 100 mls/hr DAILY IV 12/01/24 10:00 12/02/24 08:32 100 MLS/HR Fat Emulsion Intravenous 200 ml/Sodium Chloride 130 meq/ Sodium Phosphate 30 meq/Potassium Acetate 30 meq/ Calcium Gluconate 4.65 meq/ Magnesium Sulfate 20 meq/ Multivitamins 10 ml/Chromium/ Copper/Manganese/ Zinc 1 ml/Amino Acids/Dextrose 1,881 ml @ 78 mls/hr Q24H7M IV 12/01/24 22:00 12/02/24 22:06 12/01/24 21:36 78 MLS/HR Enoxaparin Sodium 140 mg Q12HR SC 12/02/24 10:00 Ipratropium [place] 0.5 mg Q6HR NEB 12/02/24 09:00 12/02/24 12:21 0.5 MG Levalbuterol HCl 0.625 mg Q6HR NEB 12/02/24 09:00 12/02/24 12:21 0.625 MG Fat Emulsion Intravenous 200 ml/Sodium Chloride 130 meq/ Sodium Phosphate 30 meq/Potassium Acetate 40 meq/ Calcium Gluconate 4.65 meq/ Magnesium Sulfate 20 meq/ Multivitamins 10 ml/Amino Acids/ Dextrose 1,885 ml @ 78 mls/hr [id number] IV 12/02/24 22:00 12/03/24 21:59 Carvedilol 12.5 mg Q12HR PO 12/02/24 22:00 objective General Appearance: Alert, Oriented X3, Cooperative, No acute distress HEENT: Atraumatic, PERRLA Lungs: Clear to auscultation Cardiovascular: Regular rate Abdomen: Normal bowel sounds; drainage tube in place Musculoskeletal: Normal sensory function, Normal motor function Neuro: Cranial nerves 3-12 NL Skin: Dry, Intact Psych/Mental Status: Mental status NL, Mood NL laboratory and microbiology Laboratory Tests 12/02/24 04:59 Test 12/02/24 04:59 Range/Units Serum Glucose 139 H 74-106 mg/dL Small-bowel follow-through was negative CT angiogram showed no pulmonary embolism there appeared to be some ascites and elevation of diaphragm Chest x-ray shows hypoventilation and atelectasis Problems(with codes): (1) Diverticulitis large intestine (2) Abdominal pain (3) History of open sigmoidectomy (4) Abnormal finding on GI tract imaging (5) Abscess of sigmoid colon due to diverticulitis Prognosis Plan Continue IV antibiotics Pulmonary care is ongoing Patient has been started on inhalers Consider low-dose diuretics Diet has been advanced Cut back on IV fluid hydration Physical therapy Dietary Evaluation Review Comments: To meet at least 75% ofpt's needs, recommend TPN kcal to be increased to 1500-2000kcal range and protein to be increased to 80-90g/d. Expected Outcomes/Goals: Pt will experience a gradual wt loss at this kcal level, yet, the appropriated nutrition support of protein and kcal can enhance pt's GI perforation healing process, and help him regain normal GI functionality Plan discussed with: Patient DAVONTE BILLY MD Dec 02, 2024 14:37
--- NOTE | 2024-12-02 15:49 | DVHINCON2 ---
Date of service: Nov 30, [address] Zacarias Reason for Consultation Acute respiratory failure History of Present Illness History Source: Patient Exam Limitations: No limitations HPI Patient is a 44-year old gentleman with no major medical history who presented with abdominal pain and fever. Was seen in the emergency room where imaging demonstrated perforated bowel and the patient was admitted for further management including surgical intervention. During admission, he was noted to desaturate requiring supplemental oxygen and chest x0ray findings were consistent with pneumonia. Pulmonology was consulted in view of hypoxemia. Home Meds No Active Prescriptions or Reported Meds Past Medical History Cardiac: No pertinent Hx Pulmonary: No pertinent Hx Central Nervous System: No pertinent Hx GI: No pertinent Hx Hemotology/Oncology: No pertinent Hx Hepatobiliary: No pertinent Hx Psychiatric: No pertinent Hx Musculoskeletal: No pertinent Hx Rheumotologic: No pertinent Hx Infectious Disease: No peritnent Hx ENT: No pertinent Hx Renal/: No pertinent Hx Endocrine: No pertinent Hx Dermatology: No pertinent Hx Past Surgical History: No pertinent Hx Family History: DM, Hypertension Patient Family History: Diabetes mellitus G8 MOTHER Hypertension G8 FATHER Smoker: No Hx (Negative) Alocohol: None Drugs: None Lives with: With family Domestic Violence: Neg Review of Systems Constitutional: No symptom reported Ears, Nose, & Throat: No symptom reported Eyes: No symptom reported Pulmonary/Respiratory: No symptom reported Cardiovascular: No symptom reported Gastrointestinal: Abdominal Pain Genitourinary: No symptom reported Musculoskeletal: No symptom reported Skin: No symptom reported Psychiatric: No symptom reported Endocrine: No symptom reported Hemotologic/Lymphatic: No symptom reported H&P Exam Vital Signs Vital Signs Date Time Temp Pulse Resp B/P (MAP) Pulse Ox O2 Delivery O2 Flow Rate FiO2 12/02/24 14:00 105 12/02/24 14:00 29 132/70 (90) 96 12/02/24 14:00 Nasal Cannula* 2 28 12/02/24 12:00 98.3 98.3 General Appeara: Well developed, Well nourished, Normal Appearance Head Exam: Normal inspection Neck Exam: Normal inspection, Non-tender, Normal alignment Eye Exam: bilateral eye Normal inspection, bilateral eye PERRL, bilateral eye EOMI Ear Exam: bilateral ear Auricle normal, bilateral ear Canal normal, bilateral ear TM normal Nasal Exam: Normal inspection Mouth: Normal Inspection Pulmonary/Respiratory: Decreased breath sounds Cardiovascular/Chest: Normal inspection Peripheral Pulses: 4+ Radial (R), 4+ Radial (L), 4+ Brachial (R), 4+ Brachial (L) Abdominal Exam: Normal bowel sounds Labs/Xrays Labs Test 12/02/24 11:14 12/02/24 04:59 12/01/24 05:45 11/30/24 13:10 Range/Units POC Glucose 143 H 70-106 mg/dl White Blood Count 14.7 H 4.4-10.8 10^3/uL Red Blood Count 2.87 L 4.5-5.90 10^6/uL Hemoglobin 8.2 L 13.5-17.5 g/dL Hematocrit 24.8 L 41.0-53.0 % Mean Corpuscular Volume 86.5 80.0-100.0 fL Mean Corpuscular Hemoglobin 28.6 28.0-32.0 pg Mean Corpuscular Hemoglobin Concent 33.0 32.0-36.0 g/dL Red Cell Distribution Width 16.2 H 11.8-14.3 % Platelet Count 266 140-450 10^3/uL Mean Platelet Volume 7.4 6.9-10.8 fL Neutrophils (%) (Auto) 85.2 H 37.0-80.0 % Lymphocytes (%) (Auto) 6.2 L 10.0-50.0 % Monocytes (%) (Auto) 7.5 0.0-12.0 % Eosinophils (%) (Auto) 0.9 0.0-7.0 % Basophils (%) (Auto) 0.2 0.0-2.0 % Neutrophils # (Auto) 12.5 H 1.6-8.6 10 ^3/uL Lymphocytes # (Auto) 0.9 0.4-5.4 10 ^3/uL Monocytes # (Auto) 1.1 0-1.3 10 ^3/uL Eosinophils # (Auto) 0.1 0-0.8 10 ^3/uL Basophils # (Auto) 0 0-0.2 10 ^3/uL Nucleated Red Blood Cells 0.1 % Sodium Level 139 136-145 mmol/L Potassium Level 3.9 3.5-5.1 mmol/L Chloride Level 105 98-107 mmol/L Carbon Dioxide Level 26 20-31 mmol/L Anion Gap 8 5-15 Blood Urea Nitrogen 19 9-23 mg/dL Creatinine 0.43 L 0.700-1.30 mg/dL Glomerular Filtration Rate Calc 133 >90 mL/min BUN/Creatinine Ratio 44.2 H 10.0-20.0 Serum Glucose 139 H 74-106 mg/dL Calcium Level 7.6 L 8.7-10.4 mg/dL Phosphorus Level 3.1 2.4-5.1 mg/dL Magnesium Level 2.1 1.6-2.6 mg/dL Total Bilirubin 1.4 H 0.2-1.0 mg/dL Aspartate Amino Transferase (AST) 44 H <34 U/L Alanine Aminotransferase (ALT) 32 7-40 U/L Alkaline Phosphatase 71 46-116 U/L Total Protein 4.4 L 5.7-8.2 g/dL Albumin 2.5 L 3.2-4.8 g/dL Triglycerides Level 101 < 150 mg/dL Prothrombin Time 14.2 H 9.3-11.8 sec Prothrombin Time INR 1.38 H 0.9-1.15 Activated Partial Thromboplast Time 29.7 24.5-34.5 SEC Test 11/30/24 11:13 11/29/24 21:42 11/29/24 13:07 11/29/24 04:45 Range/Units Blood Gas Specimen Type Arterial Blood Gas Sample Site Left radial Blood Gas Patient Temperature 37.0 Arterial Blood Date Drawn [id number] Arterial Blood pH 7.515 H 7.350-7.450 Arterial Blood Partial Pressure CO2 29.1 L 35.0-48.0 mmHg Arterial Blood Partial Pressure O2 63.2 L 83.0-108.0 mmHg Arterial Blood HCO3 23.0 21.0-28.0 mmol/L Arterial Blood Oxygen Saturation 91.9 L 94.0-98.0 % Arterial Blood Base Excess 0.6 -2.0-3.0 mmol/L Arterial Blood Oxyhemoglobin 90.6 L 94.0-98.0 % Arterial Blood Carboxyhemoglobin 0.8 0.5-1.5 % Arterial Blood Methemoglobin 0.6 0.0-1.5 % Jim Test Yes Blood Gas Total Hemoglobin 10.30 L 13.5-17.5 g/dL Blood Gas Modality Nasal cannula FiO2 % 40.0 Differential Total Cells Counted 100.0 100 Neutrophils % (Manual) 83 H 37.0-80.0 Band Neutrophils % (Manual) 5 Lymphocytes % (Manual) 3 L 10.0-50.0 Monocytes % (Manual) 8 0-12 Eosinophils % (Manual) 0 0-7 Basophils % (Manual) 0 0.0-2.0 Metamyelocytes % (manual) 1 Myelocytes % (Manual) 0 Promyelocytes % (Manual) 0 Blast Cells % (Manual) 0 Reactive Lymphocytes 0 Platelet Estimate Adequate Anisocytosis (manual) Slight Blood Gas Liter Flow 4.00 Troponin I High Sensitivity 4 </=54 ng/L Test 11/27/24 11:12 11/26/24 03:20 11/22/24 04:07 11/19/24 12:56 Range/Units Large Platelets Few Giant Platelets Few Estimated GFR () 176 mL/min Estimated GFR (Non- 146 mL/min Vancomycin Level Trough 24.7 H 5-10 ug/mL Test 11/19/24 08:49 11/17/24 04:38 11/13/24 12:10 11/12/24 00:25 Range/Units Erythrocyte Sedimentation Rate 28 H 0-20 mm/hr Hemoglobin A1c 5.5 <5.7 % A1C Urine Opiates Screen Neg NEGATIVE Urine Fentanyl Screen Neg NEGATIVE Urine Barbiturates Screen Neg NEGATIVE Urine Phencyclidine Screen Neg NEGATIVE Urine Amphetamines Screen Neg NEGATIVE Urine Benzodiazepines Screen Neg NEGATIVE Urine Cocaine Screen Neg NEGATIVE Urine Cannabinoids Screen Neg NEGATIVE Influenza Type A Antigen Negative Negative Influenza Type B Antigen Negative Negative SARS-CoV-2 Antigen (Rapid) Negative NEGATIVE Test 11/11/24 20:50 11/11/24 20:15 Range/Units Urine Color Yellow Yellow Urine Clarity Clear Clear Urine pH 6.0 5.0-9.0 Urine Specific [place] 1.021 1.001-1.035 Urine Protein 1+ H Negative Urine Ketones Negative Negative Urine Blood 2+ H Negative /uL Urine Nitrite Negative Negative Urine Bilirubin Negative Negative Urine Urobilinogen 3 H Negative mg/dL Urine Leukocyte Esterase Negative Negative /uL Urine RBC 1 0 - 3 /hpf Urine Microscopic WBC 6 H 0-3 /HPF Urine Squamous Epithelial Cells None seen <5 /hpf Urine Bacteria None seen None Seen /hpf Urine Mucus Few None Seen Urine Glucose 1+ H Normal mg/dL Lactic Acid Level 1.7 0.4-2.0 mmol/L Lipase 31 12-53 U/L Microbiology Date/Time Source Procedure Growth Status 11/28/24 09:40 Blood Blood Culture - Preliminary NO GROWTH AFTER 72 HOURS OF INCUBATION. Resulted 11/22/24 10:15 Abdomen Gram Stain - Final Complete 11/22/24 10:15 Abdomen Anaerobic Culture - Final Complete 11/22/24 10:15 Aerobic Culture - Final Escherichia coli Enterococcus faecium - VRE Complete 11/18/24 10:20 Voided Urine Urine Culture - Final Complete 11/15/24 13:15 Aspirate Gram Stain - Final Complete 11/15/24 13:15 Body Fluid Culture - Final Escherichia coli Complete Assessment/Plan Plan Impression Acute hypoxemic respiratory failure Nonocclusive DVT Bowel perforation Atelectasis Patient seen and examined in [facility] Events Low oxygen requirements On 2 liters nasal cannula GIOVANNY drains in place s/p ex lap NG tube in place Labs and imaging reviewed Management Supplemental oxygen Titrate to maintain sats 90% or above Incentive spirometry Antibiotics F/u cultures Bronchodilators Recommend diuresis Monitor renal function Monitor electrolytes Supplement as needed Pain control Avoid oversedation F/u general surgery DVT prophylaxis Critical care time 35 minutes Plan discussed with: Patient DALJIT BATRES MD Dec 02, 2024 15:49
--- NOTE | 2024-12-02 15:50 | DVHPN2 ---
Progress Note - Dictate Date Seen: Dec 02, 2024 Medical Necessity Reason Pt with a Central, PICC or Fol: No vital signs Vital Sign Date Time Temp Pulse Resp B/P (MAP) Pulse Ox O2 Delivery O2 Flow Rate FiO2 12/02/24 14:00 105 12/02/24 14:00 29 132/70 (90) 96 12/02/24 14:00 Nasal Cannula* 2 28 12/02/24 12:00 98.3 98.3 Total Intake and Output 12/01/24 12/01/24 12/02/24 15:00 23:00 07:00 Intake Total 2184 ml 2373 ml 2250 ml Output Total 1060 ml 910 ml Balance 2184 ml 1313 ml 1340 ml medications Current Medications Medications Dose Ordered Sig/Edis Route Start Time Stop Time Status Last Admin Dose Admin Acetaminophen 650 mg Q6HPRN PRN PO 11/11/24 23:45 12/02/24 00:24 650 MG Piperacillin Sod/ Tazobactam Sod 100 ml @ 25 mls/hr Q8HR IV 11/12/24 06:00 UNV Ondansetron HCl 4 mg Q4HPRN PRN IV 11/12/24 07:45 11/25/24 06:32 4 MG Pantoprazole Sodium 40 mg DAILY IV 11/13/24 10:00 12/02/24 09:37 40 MG Morphine Sulfate 2 mg Q4HPRN PRN IV 11/12/24 16:45 12/02/24 11:12 2 MG Vancomycin HCl 300 ml @ 200 mls/hr Q12H IV 11/13/24 15:00 UNV Dextrose 50 ml UD IV 11/15/24 12:00 Diagnostic Test (Pha) 1 strip Q6HR 11/15/24 18:00 12/02/24 11:18 1 STRIP Insulin Human Regular FOLLOW SLIDING SCALE Q6HR SC 11/15/24 18:00 12/02/24 11:18 2 UNITS Hydralazine HCl 10 mg Q6HP PRN IV 11/16/24 15:45 12/01/24 15:50 10 MG Fat Emulsion Intravenous 200 ml/Sodium Chloride 80 meq/ Sodium Acetate 40 meq/Potassium Chloride 40 meq/ Potassium Phosphate 22 meq/ Calcium Gluconate 2.3 meq/Magnesium Sulfate 8 meq/ Multivitamins 10 ml/Chromium/ Copper/Manganese/ Zinc 1 ml/Amino Acids/Dextrose 1,582.9462 ml @ 66 mls/hr Q24H IV 11/18/24 22:00 11/19/24 21:59 Cancel Sodium Chloride 10 ml QSHIFT@10,22 IV 11/25/24 22:00 12/02/24 09:38 10 ML Amino Acids 0 ml @ 0 mls/hr PER PHARMACY IV 11/25/24 12:45 Linezolid 300 ml @ 150 mls/hr Q12HR IV 11/25/24 22:00 12/02/24 09:38 150 MLS/HR Potassium Chloride 100 ml @ 50 mls/hr Q2H IV 11/27/24 11:30 11/27/24 15:29 UNV Albumin Human 50 ml @ 100 mls/hr Q8H IV 11/29/24 07:45 Cancel Meropenem 50 ml @ 17 mls/hr Q8HR IV 11/29/24 14:00 12/02/24 13:30 17 MLS/HR Lorazepam 0.5 mg Q6HP PRN IV 11/29/24 09:00 12/01/24 22:43 0.5 MG Micafungin Sodium 100 mg/Sodium Chloride 100 ml @ 100 mls/hr DAILY IV 12/01/24 10:00 12/02/24 08:32 100 MLS/HR Fat Emulsion Intravenous 200 ml/Sodium Chloride 130 meq/ Sodium Phosphate 30 meq/Potassium Acetate 30 meq/ Calcium Gluconate 4.65 meq/ Magnesium Sulfate 20 meq/ Multivitamins 10 ml/Chromium/ Copper/Manganese/ Zinc 1 ml/Amino Acids/Dextrose 1,881 ml @ 78 mls/hr Q24H7M IV 12/01/24 22:00 12/02/24 22:06 12/01/24 21:36 78 MLS/HR Enoxaparin Sodium 140 mg Q12HR SC 12/02/24 10:00 Ipratropium [place] 0.5 mg Q6HR NEB 12/02/24 09:00 12/02/24 12:21 0.5 MG Levalbuterol HCl 0.625 mg Q6HR NEB 12/02/24 09:00 12/02/24 12:21 0.625 MG Fat Emulsion Intravenous 200 ml/Sodium Chloride 130 meq/ Sodium Phosphate 30 meq/Potassium Acetate 40 meq/ Calcium Gluconate 4.65 meq/ Magnesium Sulfate 20 meq/ Multivitamins 10 ml/Amino Acids/ Dextrose 1,885 ml @ 78 mls/hr [id number] IV 12/02/24 22:00 12/03/24 21:59 Carvedilol 12.5 mg Q12HR PO 12/02/24 22:00 laboratory and microbiology Laboratory Tests 12/02/24 04:59 Test 12/02/24 04:59 Range/Units Serum Glucose 139 H 74-106 mg/dL Assessment/Plan Impression Acute hypoxemic respiratory failure Nonocclusive DVT Bowel perforation Atelectasis Patient seen and examined in [facility] Events Low oxygen requirements On 2 liters nasal cannula GIOVANNY drains in place s/p ex lap NG tube in place Labs and imaging reviewed Management Supplemental oxygen Titrate to maintain sats 90% or above Incentive spirometry Continue antibiotics F/u cultures Bronchodilators Recommend diuresis Monitor renal function Monitor electrolytes Supplement as needed Pain control Avoid oversedation F/u general surgery DVT prophylaxis Critical care time 35 minutes Dietary Evaluation Review Comments: To meet at least 75% ofpt's needs, recommend TPN kcal to be increased to 1500-2000kcal range and protein to be increased to 80-90g/d. Expected Outcomes/Goals: Pt will experience a gradual wt loss at this kcal level, yet, the appropriated nutrition support of protein and kcal can enhance pt's GI perforation healing process, and help him regain normal GI functionality Plan discussed with: Patient DALJIT BATRES MD Dec 02, 2024 15:50
--- NOTE | 2024-12-02 18:58 | DVHINCON2 ---
Date of service: Dec 02, 2024 Referring Physician Clement MORTON Reason for Consultation antibiotics recommendation History of Present Illness Patient is a 44-year-old male with significant past medical history presented to the hospital with a chief complaint of blurred vision and testicular pain since morning prior to this admission. The patient states that prior to this admission 5 days ago he was diagnosed with COVID-19 and since then he has having intermittent fever, chills and highest temperature recorded 101, associated with nausea, 1 episodes of vomiting , diarrhea and urgency. He was not vaccinated for COVID-19 and never had COVID before. Patient denied any history of trauma to the scrotum or any urinary urgency, hesitancy, burning sensation in the urine and did not mentioned any position that feels comfortable with the testicular pain. S/P Percutaneous drainage of pericolonic abscess on 11/15. Right upper extremity ultrasound showed DVT. Minimal drainage noted from IR drain on 11/16. WBC continues to climb. fluid cx (Abscess) was positive for E. coli on 11/17. Patient was on IV vancomycin and Zosyn. On 11/21 patient had intermittent periods of tachycardia and fevers. WBC continued to climb and CT scan looked much worse. Patient was given 2 options, either go back to NPO and TPN or an operation with a colostomy. Patient opted for surgery and colostomy. On 11/22 patient underwent exploratory laparotomy with partial sigmoid resection. Descending colostomy for perforated diverticulitis with abscess. He is continued to cared in ICU Patient is doing better now. Blood pressure and Heart rate controlled by Beta edmond. ID is consulted on 12/02 for low grade fever and persistent Leucocytosis reviewed chart, surgeon notes and imaging, cultures and antibiotics he received. Past Medical History Past Medical History: None Past Surgical History Past Surgical History: None Family History: Diabetes mellitus G8 MOTHER Hypertension G8 FATHER Social History Nonsmoker, nonalcoholic and never tried any drugs Lives with family Allergies: Coded Allergies: NO KNOWN ALLERGIES (Unverified , 11/11/24) Home Meds No Active Prescriptions or Reported Meds Current Medications Current Medications Medications (Trade) Dose Ordered Sig/Edis Route PRN Reason Start Time Stop Time Status Last Admin Fat Emulsion Intravenous 200 ml/Sodium Chloride 130 meq/ Sodium Phosphate 30 meq/Potassium Acetate 30 meq/ Calcium Gluconate 4.65 meq/ Magnesium Sulfate 20 meq/ Multivitamins 10 ml/Chromium/ Copper/Manganese/ Zinc 1 ml/Amino Acids/Dextrose 1,881 ml @ 78 mls/hr Q24H7M IV 12/01/24 22:00 12/02/24 22:06 12/01/24 21:36 Carvedilol (Coreg Tablet) 25 mg Q12HR PO 12/01/24 22:00 12/01/24 17:41 DC 12/01/24 17:40 Levalbuterol HCl (Xopenex Medneb) 0.625 mg Q6HR NEB 12/02/24 12:00 12/02/24 08:56 DC Ipratropium [place] (Atrovent Medneb) 0.5 mg Q6HR NEB 12/02/24 12:00 12/02/24 08:56 DC Enoxaparin Sodium (Lovenox) 140 mg Q12HR SC 12/02/24 10:00 Ipratropium [place] (Atrovent Medneb) 0.5 mg Q6HR NEB 12/02/24 09:00 12/02/24 12:21 Levalbuterol HCl (Xopenex Medneb) 0.625 mg Q6HR NEB 12/02/24 09:00 12/02/24 12:21 Fat Emulsion Intravenous 200 ml/Sodium Chloride 130 meq/ Sodium Phosphate 30 meq/Potassium Acetate 40 meq/ Calcium Gluconate 4.65 meq/ Magnesium Sulfate 20 meq/ Multivitamins 10 ml/Amino Acids/ Dextrose 1,885 ml @ 78 mls/hr [id number] IV 12/02/24 22:00 12/03/24 21:59 Carvedilol (Coreg Tablet) 12.5 mg Q12HR PO 12/02/24 22:00 Review of Systems Constitutional: No: Fever, Chills, Sweats, Weakness, Malaise, Other Eyes: No: Pain, Vision change, Conjunctivae inflammation, Eyelid inflammation, Other, Redness ENT: No: Ear pain, Ear discharge, Nose pain, Nose discharge, Nose congestion, Mouth pain, Mouth swelling, T Respiratory: No: Cough, Dry, Shortness of breath, SOB with exertion, Wheezing, Hemoptysis, Pleuritic Pain, Sputum, Wheezing, Other Cardiovascular: No: Chest Pain, Dyspnea, Edema, Gastrointestinal: ; No: Abdominal Pain, Constipation, Melena, Hematochezia, Other, has abdominal surgery Genitourinary: No Dysuria, No Frequency, No Incontinence, No Hematuria, No Retention, No Other Musculoskeletal: No: other, neck pain, shoulder pain, arm pain, back pain, hand pain, leg pain, foot pain Skin: No: Rash, Lesions, Jaundice, Bruising, Other Neurological: No: Weakness, Numbness, Incoordination, Change in speech, Confusion, Seizures, Other Vital Signs Vital Signs Date Time Temp Pulse Resp B/P (MAP) Pulse Ox O2 Delivery O2 Flow Rate FiO2 12/02/24 18:00 109 29 136/76 (96) 97 12/02/24 18:00 Nasal Cannula* 2 28 12/02/24 16:00 97.9 97.9 Physical Exam General Appearance: Alert, Oriented X3, Cooperative, No acute distress obese HEENT: Atraumatic, PERRLA, EOMI, Mucous membrane moist/pink Respiratory: Clear to auscultation, Normal air movement Cardiovascular: Regular rate, Normal S1, Normal S2, No murmurs, no chest wall tenderness Abdominal: s/p abdominal surgery, has GIOVANNY drain. midline incision site looks ok. has colostomy. 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 Psych/Mental Status: Mental status NL, Mood NL Testicular exam: Absent swelling, tenderness and redness bilaterally Labs/Diagnostic Data Labs Test 12/02/24 17:05 12/02/24 04:59 12/01/24 05:45 11/30/24 13:10 Range/Units POC Glucose 147 H 70-106 mg/dl White Blood Count 14.7 H 4.4-10.8 10^3/uL Red Blood Count 2.87 L 4.5-5.90 10^6/uL Hemoglobin 8.2 L 13.5-17.5 g/dL Hematocrit 24.8 L 41.0-53.0 % Mean Corpuscular Volume 86.5 80.0-100.0 fL Mean Corpuscular Hemoglobin 28.6 28.0-32.0 pg Mean Corpuscular Hemoglobin Concent 33.0 32.0-36.0 g/dL Red Cell Distribution Width 16.2 H 11.8-14.3 % Platelet Count 266 140-450 10^3/uL Mean Platelet Volume 7.4 6.9-10.8 fL Neutrophils (%) (Auto) 85.2 H 37.0-80.0 % Lymphocytes (%) (Auto) 6.2 L 10.0-50.0 % Monocytes (%) (Auto) 7.5 0.0-12.0 % Eosinophils (%) (Auto) 0.9 0.0-7.0 % Basophils (%) (Auto) 0.2 0.0-2.0 % Neutrophils # (Auto) 12.5 H 1.6-8.6 10 ^3/uL Lymphocytes # (Auto) 0.9 0.4-5.4 10 ^3/uL Monocytes # (Auto) 1.1 0-1.3 10 ^3/uL Eosinophils # (Auto) 0.1 0-0.8 10 ^3/uL Basophils # (Auto) 0 0-0.2 10 ^3/uL Nucleated Red Blood Cells 0.1 % Sodium Level 139 136-145 mmol/L Potassium Level 3.9 3.5-5.1 mmol/L Chloride Level 105 98-107 mmol/L Carbon Dioxide Level 26 20-31 mmol/L Anion Gap 8 5-15 Blood Urea Nitrogen 19 9-23 mg/dL Creatinine 0.43 L 0.700-1.30 mg/dL Glomerular Filtration Rate Calc 133 >90 mL/min BUN/Creatinine Ratio 44.2 H 10.0-20.0 Serum Glucose 139 H 74-106 mg/dL Calcium Level 7.6 L 8.7-10.4 mg/dL Phosphorus Level 3.1 2.4-5.1 mg/dL Magnesium Level 2.1 1.6-2.6 mg/dL Total Bilirubin 1.4 H 0.2-1.0 mg/dL Aspartate Amino Transferase (AST) 44 H <34 U/L Alanine Aminotransferase (ALT) 32 7-40 U/L Alkaline Phosphatase 71 46-116 U/L Total Protein 4.4 L 5.7-8.2 g/dL Albumin 2.5 L 3.2-4.8 g/dL Triglycerides Level 101 < 150 mg/dL Prothrombin Time 14.2 H 9.3-11.8 sec Prothrombin Time INR 1.38 H 0.9-1.15 Activated Partial Thromboplast Time 29.7 24.5-34.5 SEC Test 11/30/24 11:13 11/29/24 21:42 11/29/24 13:07 11/29/24 04:45 Range/Units Blood Gas Specimen Type Arterial Blood Gas Sample Site Left radial Blood Gas Patient Temperature 37.0 Arterial Blood Date Drawn [id number] Arterial Blood pH 7.515 H 7.350-7.450 Arterial Blood Partial Pressure CO2 29.1 L 35.0-48.0 mmHg Arterial Blood Partial Pressure O2 63.2 L 83.0-108.0 mmHg Arterial Blood HCO3 23.0 21.0-28.0 mmol/L Arterial Blood Oxygen Saturation 91.9 L 94.0-98.0 % Arterial Blood Base Excess 0.6 -2.0-3.0 mmol/L Arterial Blood Oxyhemoglobin 90.6 L 94.0-98.0 % Arterial Blood Carboxyhemoglobin 0.8 0.5-1.5 % Arterial Blood Methemoglobin 0.6 0.0-1.5 % Jim Test Yes Blood Gas Total Hemoglobin 10.30 L 13.5-17.5 g/dL Blood Gas Modality Nasal cannula FiO2 % 40.0 Differential Total Cells Counted 100.0 100 Neutrophils % (Manual) 83 H 37.0-80.0 Band Neutrophils % (Manual) 5 Lymphocytes % (Manual) 3 L 10.0-50.0 Monocytes % (Manual) 8 0-12 Eosinophils % (Manual) 0 0-7 Basophils % (Manual) 0 0.0-2.0 Metamyelocytes % (manual) 1 Myelocytes % (Manual) 0 Promyelocytes % (Manual) 0 Blast Cells % (Manual) 0 Reactive Lymphocytes 0 Platelet Estimate Adequate Anisocytosis (manual) Slight Blood Gas Liter Flow 4.00 Troponin I High Sensitivity 4 </=54 ng/L Test 11/27/24 11:12 11/26/24 03:20 11/22/24 04:07 11/19/24 12:56 Range/Units Large Platelets Few Giant Platelets Few Estimated GFR () 176 mL/min Estimated GFR (Non- 146 mL/min Vancomycin Level Trough 24.7 H 5-10 ug/mL Test 11/19/24 08:49 11/17/24 04:38 11/13/24 12:10 11/12/24 00:25 Range/Units Erythrocyte Sedimentation Rate 28 H 0-20 mm/hr Hemoglobin A1c 5.5 <5.7 % A1C Urine Opiates Screen Neg NEGATIVE Urine Fentanyl Screen Neg NEGATIVE Urine Barbiturates Screen Neg NEGATIVE Urine Phencyclidine Screen Neg NEGATIVE Urine Amphetamines Screen Neg NEGATIVE Urine Benzodiazepines Screen Neg NEGATIVE Urine Cocaine Screen Neg NEGATIVE Urine Cannabinoids Screen Neg NEGATIVE Influenza Type A Antigen Negative Negative Influenza Type B Antigen Negative Negative SARS-CoV-2 Antigen (Rapid) Negative NEGATIVE Test 11/11/24 20:50 11/11/24 20:15 Range/Units Urine Color Yellow Yellow Urine Clarity Clear Clear Urine pH 6.0 5.0-9.0 Urine Specific [place] 1.021 1.001-1.035 Urine Protein 1+ H Negative Urine Ketones Negative Negative Urine Blood 2+ H Negative /uL Urine Nitrite Negative Negative Urine Bilirubin Negative Negative Urine Urobilinogen 3 H Negative mg/dL Urine Leukocyte Esterase Negative Negative /uL Urine RBC 1 0 - 3 /hpf Urine Microscopic WBC 6 H 0-3 /HPF Urine Squamous Epithelial Cells None seen <5 /hpf Urine Bacteria None seen None Seen /hpf Urine Mucus Few None Seen Urine Glucose 1+ H Normal mg/dL Lactic Acid Level 1.7 0.4-2.0 mmol/L Lipase 31 12-53 U/L Microbiology Date/Time Source Procedure Growth Status 11/28/24 09:40 Blood Blood Culture - Preliminary NO GROWTH AFTER 72 HOURS OF INCUBATION. 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 s/p colon resection on 11/22 s/p colostomy with output. had diverticular abscess with OR cx grew VRE He is on broad spectrum antibiotics Linezolid, Meropenem and Micafungin. WBC is slowly tapering down. repeat blood cx if he spikes fever again >100.[address] abdomen and pelvis with contrast if spikes again. reviewed OR notes Review of cultures: 11/11, Blood culture showed no growth 11/11, Urine culture showed no growth 11/12, MRSA screening came back negative 11/13, Urine culture showed no growth 11/15, Body fluid culture showed E. coli 11/18, Blood culture showed no growth 11/18, urine culture showed no growth 11/22, OR culture showed E. coli and Enterococcus faecium 11/28, Blood culture showed no growth 12/01, Blood culture preliminary showed no growth Antibiotic status: IV Zosyn from 11/11 to 11/25 IV vancomycin from 11/11 to 11/19 Micafungin IV [Started on 12/01 - Ongoing] Linezolid IV [Started on 11/25 - Ongoing] Meropenem IV [Given on 11/29 - Ongoing] Flagyl IV Started on 11/22 - 11/29] Ceftriaxone IV [Started on 11/25 - 11/29] reviewed records Prognosis very guarded total time: 80 minutes spent during the encounter plan discussed with patient / RN Thank you for consult Plan discussed with: Patient, Other MAKENNA STONER MD Dec 02, 2024 18:58
[2024-12-02] MEDS: EPINEPHrine HCL 0.5 ML NEB NEB ONE (20:27)
[2024-12-02] MEDS: EPINEPHrine HCL 0.5 ML NEB ONE (20:29)
[2024-12-02] MEDS: CARVEDILOL 12.5 MG TAB PO SCH (21:32)
[2024-12-02] MEDS: TPN PER PHARMACY IV NR (21:33)
--- NOTE | 2024-12-02 23:07 | DVHPN2 ---
Consult Progress Note Subjective Patient reports: No new complaints Other Systems: Patient was seen and evaluated in follow up in the ICU. Patient is complaining of abdominal pain with radiation to his back. HGB 7.6, HCT 23.3, Objective vital signs Vital Sign Date Time Temp Pulse Resp B/P (MAP) Pulse Ox O2 Delivery O2 Flow Rate FiO2 12/02/24 13:00 109 28 118/65 (82) 96 12/02/24 12:21 Nasal Cannula* 2 28 12/02/24 12:00 98.8 98.8 Total Intake and Output 12/01/24 12/01/24 12/02/24 15:00 23:00 07:00 Intake Total 2184 ml 2373 ml 2250 ml Output Total 1060 ml 910 ml Balance 2184 ml 1313 ml 1340 ml medications Current Medications Medications Dose Ordered Sig/Edis Route Start Time Stop Time Status Last Admin Dose Admin Acetaminophen 650 mg Q6HPRN PRN PO 11/11/24 23:45 12/02/24 00:24 650 MG Piperacillin Sod/ Tazobactam Sod 100 ml @ 25 mls/hr Q8HR IV 11/12/24 06:00 UNV Ondansetron HCl 4 mg Q4HPRN PRN IV 11/12/24 07:45 11/25/24 06:32 4 MG Pantoprazole Sodium 40 mg DAILY IV 11/13/24 10:00 12/02/24 09:37 40 MG Morphine Sulfate 2 mg Q4HPRN PRN IV 11/12/24 16:45 12/02/24 11:12 2 MG Vancomycin HCl 300 ml @ 200 mls/hr Q12H IV 11/13/24 15:00 UNV Dextrose 50 ml UD IV 11/15/24 12:00 Diagnostic Test (Pha) 1 strip Q6HR 11/15/24 18:00 12/02/24 11:18 1 STRIP Insulin Human Regular FOLLOW SLIDING SCALE Q6HR SC 11/15/24 18:00 12/02/24 11:18 2 UNITS Hydralazine HCl 10 mg Q6HP PRN IV 11/16/24 15:45 12/01/24 15:50 10 MG Fat Emulsion Intravenous 200 ml/Sodium Chloride 80 meq/ Sodium Acetate 40 meq/Potassium Chloride 40 meq/ Potassium Phosphate 22 meq/ Calcium Gluconate 2.3 meq/Magnesium Sulfate 8 meq/ Multivitamins 10 ml/Chromium/ Copper/Manganese/ Zinc 1 ml/Amino Acids/Dextrose 1,582.9462 ml @ 66 mls/hr Q24H IV 11/18/24 22:00 11/19/24 21:59 Cancel Sodium Chloride 10 ml QSHIFT@10,22 IV 11/25/24 22:00 12/02/24 09:38 10 ML Amino Acids 0 ml @ 0 mls/hr PER PHARMACY IV 11/25/24 12:45 Linezolid 300 ml @ 150 mls/hr Q12HR IV 11/25/24 22:00 12/02/24 09:38 150 MLS/HR Potassium Chloride 100 ml @ 50 mls/hr Q2H IV 11/27/24 11:30 11/27/24 15:29 UNV Albumin Human 50 ml @ 100 mls/hr Q8H IV 11/29/24 07:45 Cancel Meropenem 50 ml @ 17 mls/hr Q8HR IV 11/29/24 14:00 12/02/24 13:30 17 MLS/HR Lorazepam 0.5 mg Q6HP PRN IV 11/29/24 09:00 12/01/24 22:43 0.5 MG Micafungin Sodium 100 mg/Sodium Chloride 100 ml @ 100 mls/hr DAILY IV 12/01/24 10:00 12/02/24 08:32 100 MLS/HR Fat Emulsion Intravenous 200 ml/Sodium Chloride 130 meq/ Sodium Phosphate 30 meq/Potassium Acetate 30 meq/ Calcium Gluconate 4.65 meq/ Magnesium Sulfate 20 meq/ Multivitamins 10 ml/Chromium/ Copper/Manganese/ Zinc 1 ml/Amino Acids/Dextrose 1,881 ml @ 78 mls/hr Q24H7M IV 12/01/24 22:00 12/02/24 22:06 12/01/24 21:36 78 MLS/HR Enoxaparin Sodium 140 mg Q12HR SC 12/02/24 10:00 Ipratropium [place] 0.5 mg Q6HR NEB 12/02/24 09:00 12/02/24 12:21 0.5 MG Levalbuterol HCl 0.625 mg Q6HR NEB 12/02/24 09:00 12/02/24 12:21 0.625 MG Fat Emulsion Intravenous 200 ml/Sodium Chloride 130 meq/ Sodium Phosphate 30 meq/Potassium Acetate 40 meq/ Calcium Gluconate 4.65 meq/ Magnesium Sulfate 20 meq/ Multivitamins 10 ml/Amino Acids/ Dextrose 1,885 ml @ 78 mls/hr [id number] IV 12/02/24 22:00 12/03/24 21:59 Carvedilol 12.5 mg Q12HR PO 12/02/24 22:00 Examination: GENERAL:Normal, HEENT:Normal, NECK:Normal, LUNGS:Normal, CVS:Abnormal, ABDOMEN:Normal laboratory and microbiology Laboratory Tests 12/02/24 04:59 Test 12/02/24 04:59 Range/Units Serum Glucose 139 H 74-106 mg/dL Problem List/Assessment/Plan Problem List/Assessment/Plan Problem List/Assessment/Plan Sinus tachycardia. Rule out structural heart disease. Sepsis s/p exploratory laparotomy with colonic perforation and intra-abdominal abscesses. Possible ileus. Pneumonia. Nonocclusive DVTs in the right axial and brachial veins. Acute anemia s/p PRBC transfusion . Transaminitis. Obesity. Plan/Recommendations Continued all current supportive medical care. Patient has been seen by Lisy Huggins NP on my behalf, her/him and I discussed the plan with the patient. The patient underwent a exploratory laparotomy with colon resection and colostomy secondary to intra-abdominal abscesses and colonic perforation on 11/22/2024. At this time, the patient is septic. 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 We will proceed with obtaining a transthoracic echocardiogram to evaluate cardiac function as well as wall motion. In the meantime, primary team managing severe sepsis and new onset pneumonia with antibiotics. Interventional Radiology was unable to place drain for persistent abscess due to location. Surgical team on board, ordered Infectious Disease consult for persistent sepsis. Continue with close cardiac surveillance. Additional plan as per the hospital course. Plan discussed with: Patient Dietary Evaluation Review Comments: To meet at least 75% ofpt's needs, recommend TPN kcal to be increased to 1500-2000kcal range and protein to be increased to 80-90g/d. Expected Outcomes/Goals: Pt will experience a gradual wt loss at this kcal level, yet, the appropriated nutrition support of protein and kcal can enhance pt's GI perforation healing process, and help him regain normal GI functionality Date of Service: Dec 02, 2024 Billing Provider: SAGE ORELLANA MD Cardiology Common Codes: [id number] INP/OBS CARE (High) Cardiology Consultation Codes: [id number] CONSULT <60MIN SAGE ORELLANA MD Dec 02, 2024 14:09
--- NOTE | 2024-12-02 23:10 | DVHPN2 ---
Consult Progress Note Subjective Other Systems: Patient was seen and evaluated in follow up in the ICU. Patient tachycardic in the 110s. Patient complains of generalized pain. WNC 14.7, HGB 8.2, HCT 24.8, AST 44. Objective vital signs Vital Sign Date Time Temp Pulse Resp B/P (MAP) Pulse Ox O2 Delivery O2 Flow Rate FiO2 12/02/24 13:00 109 28 118/65 (82) 96 12/02/24 12:21 Nasal Cannula* 2 28 12/02/24 12:00 98.8 98.8 Total Intake and Output 12/01/24 12/01/24 12/02/24 15:00 23:00 07:00 Intake Total 2184 ml 2373 ml 2250 ml Output Total 1060 ml 910 ml Balance 2184 ml 1313 ml 1340 ml medications Current Medications Medications Dose Ordered Sig/Edis Route Start Time Stop Time Status Last Admin Dose Admin Acetaminophen 650 mg Q6HPRN PRN PO 11/11/24 23:45 12/02/24 00:24 650 MG Piperacillin Sod/ Tazobactam Sod 100 ml @ 25 mls/hr Q8HR IV 11/12/24 06:00 UNV Ondansetron HCl 4 mg Q4HPRN PRN IV 11/12/24 07:45 11/25/24 06:32 4 MG Pantoprazole Sodium 40 mg DAILY IV 11/13/24 10:00 12/02/24 09:37 40 MG Morphine Sulfate 2 mg Q4HPRN PRN IV 11/12/24 16:45 12/02/24 11:12 2 MG Vancomycin HCl 300 ml @ 200 mls/hr Q12H IV 11/13/24 15:00 UNV Dextrose 50 ml UD IV 11/15/24 12:00 Diagnostic Test (Pha) 1 strip Q6HR 11/15/24 18:00 12/02/24 11:18 1 STRIP Insulin Human Regular FOLLOW SLIDING SCALE Q6HR SC 11/15/24 18:00 12/02/24 11:18 2 UNITS Hydralazine HCl 10 mg Q6HP PRN IV 11/16/24 15:45 12/01/24 15:50 10 MG Fat Emulsion Intravenous 200 ml/Sodium Chloride 80 meq/ Sodium Acetate 40 meq/Potassium Chloride 40 meq/ Potassium Phosphate 22 meq/ Calcium Gluconate 2.3 meq/Magnesium Sulfate 8 meq/ Multivitamins 10 ml/Chromium/ Copper/Manganese/ Zinc 1 ml/Amino Acids/Dextrose 1,582.9462 ml @ 66 mls/hr Q24H IV 11/18/24 22:00 11/19/24 21:59 Cancel Sodium Chloride 10 ml QSHIFT@10,22 IV 11/25/24 22:00 12/02/24 09:38 10 ML Amino Acids 0 ml @ 0 mls/hr PER PHARMACY IV 11/25/24 12:45 Linezolid 300 ml @ 150 mls/hr Q12HR IV 11/25/24 22:00 12/02/24 09:38 150 MLS/HR Potassium Chloride 100 ml @ 50 mls/hr Q2H IV 11/27/24 11:30 11/27/24 15:29 UNV Albumin Human 50 ml @ 100 mls/hr Q8H IV 11/29/24 07:45 Cancel Meropenem 50 ml @ 17 mls/hr Q8HR IV 11/29/24 14:00 12/02/24 13:30 17 MLS/HR Lorazepam 0.5 mg Q6HP PRN IV 11/29/24 09:00 12/01/24 22:43 0.5 MG Micafungin Sodium 100 mg/Sodium Chloride 100 ml @ 100 mls/hr DAILY IV 12/01/24 10:00 12/02/24 08:32 100 MLS/HR Fat Emulsion Intravenous 200 ml/Sodium Chloride 130 meq/ Sodium Phosphate 30 meq/Potassium Acetate 30 meq/ Calcium Gluconate 4.65 meq/ Magnesium Sulfate 20 meq/ Multivitamins 10 ml/Chromium/ Copper/Manganese/ Zinc 1 ml/Amino Acids/Dextrose 1,881 ml @ 78 mls/hr Q24H7M IV 12/01/24 22:00 12/02/24 22:06 12/01/24 21:36 78 MLS/HR Enoxaparin Sodium 140 mg Q12HR SC 12/02/24 10:00 Ipratropium [place] 0.5 mg Q6HR NEB 12/02/24 09:00 12/02/24 12:21 0.5 MG Levalbuterol HCl 0.625 mg Q6HR NEB 12/02/24 09:00 6/22/25 12:21 0.625 MG Fat Emulsion Intravenous 200 ml/Sodium Chloride 130 meq/ Sodium Phosphate 30 meq/Potassium Acetate 40 meq/ Calcium Gluconate 4.65 meq/ Magnesium Sulfate 20 meq/ Multivitamins 10 ml/Amino Acids/ Dextrose 1,885 ml @ 78 mls/hr [id number] IV 12/02/24 22:00 12/03/24 21:59 Carvedilol 12.5 mg Q12HR PO 12/02/24 22:00 laboratory and microbiology Laboratory Tests 12/02/24 04:59 Test 12/02/24 04:59 Range/Units Serum Glucose 139 H 74-106 mg/dL Problem List/Assessment/Plan Problem List/Assessment/Plan Problem List/Assessment/Plan Sinus tachycardia. Rule out structural heart disease. Sepsis s/p exploratory laparotomy with colonic perforation and intra-abdominal abscesses. Possible ileus. Pneumonia. Nonocclusive DVTs in the right axial and brachial veins. Acute anemia s/p PRBC transfusion. Transaminitis. Obesity. Plan/Recommendations Continued all current supportive medical care. Patient has been seen by Lisy Huggins NP on my behalf, her and I discussed the plan with the patient. A 44-year-old male was admitted for sepsis status post exploratory laparotomy with colon resection. The patient remains in sinus tachycardia with heart rate of 110 beats per minute. A transthoracic echocardiogram will be obtained to evaluate cardiac function in his is in ongoing management. Additional plan as per the hospital course. Plan discussed with: Patient Dietary Evaluation Review Comments: To meet at least 75% ofpt's needs, recommend TPN kcal to be increased to 1500-2000kcal range and protein to be increased to 80-90g/d. Expected Outcomes/Goals: Pt will experience a gradual wt loss at this kcal level, yet, the appropriated nutrition support of protein and kcal can enhance pt's GI perforation healing process, and help him regain normal GI functionality Date of Service: Dec 02, 2024 Billing Provider: SAGE ORELLANA MD Cardiology Common Codes: [id number] INP/OBS CARE (High) Cardiology Consultation Codes: [id number] CONSULT <45MIN SAGE ORELLANA MD Dec 02, 2024 14:13
[2024-12-03] VITALS (36 sets, daily range): BP systolic 110–149; BP diastolic 58–81; PULSE 99–129; RESP 16–32; TEMP 97.7–99.9; O2SAT 93–98
--- NOTE | 2024-12-03 05:00 | DVH ---
CHEST RADIOGRAPH Indication: FLUID OVERLOAD Technique: Single frontal view of the chest was obtained COMPARISON: XY CHEST XRAY 1 VIEW on DOS: 12/02/24, XY CHEST PORTABLE on DOS: 11/29/24, XY CHEST PORTABL E on DOS: 11/29/24, XY CHEST XRAY 1 VIEW on DOS: 11/23/24, XY CHEST PORTABLE on DOS: 11/22/24 FINDINGS: Lines and Tubes: None Lungs: Low lung volumes. Increased interstitial prominence. Pleura: No effusion. No pneumothorax. Cardiomediastinal contours: Unremarkable Bones: Unremarkable IMPRESSION: Increased Pulmonary vascular congestion
[2024-12-03 05:17] LABS: Hematocrit 24.7 % (41.0-53.0)
[2024-12-03 05:19] LABS: Hemoglobin 8.3 g/dL (13.5-17.5); Mean Corpuscular Hemoglobin 28.8 pg (28.0-32.0); Mean Corpuscular Volume 85.9 fL (80.0-100.0); Nucleated Red Blood Cells % 0.0 %
[2024-12-03 05:34] LABS: Alanine Aminotransferase 33 U/L (7-40); Alkaline Phosphatase 70 U/L (46-116); Anion Gap 6 (5-15); BUN/Creatinine Ratio 38.6 (10.0-20.0); Blood Urea Nitrogen 17 mg/dL (9-23); Carbon Dioxide 28 mmol/L (20-31); Chloride 103 mmol/L (98-107); Magnesium 1.9 mg/dL (1.6-2.6); Potassium 3.9 mmol/L (3.5-5.1); Sodium 137 mmol/L (136-145)
[2024-12-03 05:36] LABS: Bilirubin, Total 1.0 mg/dL (0.2-1.0)
[2024-12-03 05:46] LABS: Albumin 2.4 g/dL (3.2-4.8); Calcium 7.2 mg/dL (8.7-10.4); Glucose 151 mg/dL (74-106); Total Protein 4.4 g/dL (5.7-8.2)
[2024-12-03 06:31] LABS: Base Excess 1.3 mmol/L (-2.0-3.0)
[2024-12-03] MEDS: FUROSEMIDE 40 MG/4 ML VIAL IV ONE (08:25)
--- NOTE | 2024-12-03 10:05 | DVHPN2 ---
Subjective Patient denies any symptoms at this time. 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 General Appearance: Alert, Oriented X3, Cooperative, mild distress HEENT: Atraumatic, PERRLA Lungs: Clear to auscultation, Normal air movement, Other (Nasal cannula at 4 L/min) Cardiovascular: Normal S1, Normal S2, Other (Sinus tachycardia) Abdomen: Other (Absent bowel sounds. No output from colostomy. GIOVANNY with minimal serosanguineous drainage) Genitourinary: No Apparent Abnormalities (Hernandez catheter) Musculoskeletal: Normal sensory function, Normal motor function Neuro: Normal gait, Normal speech, Sensation intact, Cranial nerves 3-12 NL Skin: Dry, Intact Psych/Mental Status: Mental status NL, Mood NL Medications Current Medications Medications Dose Ordered Sig/Edis Route Start Time Stop Time Status Last Admin Dose Admin Acetaminophen 650 mg Q6HPRN PRN PO 11/11/24 23:45 12/03/24 09:22 650 MG Piperacillin Sod/ Tazobactam Sod 100 ml @ 25 mls/hr Q8HR IV 11/12/24 06:00 UNV Ondansetron HCl 4 mg Q4HPRN PRN IV 11/12/24 07:45 11/25/24 06:32 4 MG Pantoprazole Sodium 40 mg DAILY IV 11/13/24 10:00 12/03/24 09:20 40 MG Morphine Sulfate 2 mg Q4HPRN PRN IV 11/12/24 16:45 12/02/24 23:41 2 MG Vancomycin HCl 300 ml @ 200 mls/hr Q12H IV 11/13/24 15:00 UNV Dextrose 50 ml UD IV 11/15/24 12:00 Diagnostic Test (Pha) 1 strip Q6HR 11/15/24 18:00 12/03/24 06:14 1 STRIP Insulin Human Regular FOLLOW SLIDING SCALE Q6HR SC 11/15/24 18:00 12/03/24 06:17 2 UNITS Hydralazine HCl 10 mg Q6HP PRN IV 11/16/24 15:45 12/01/24 15:50 10 MG Fat Emulsion Intravenous 200 ml/Sodium Chloride 80 meq/ Sodium Acetate 40 meq/Potassium Chloride 40 meq/ Potassium Phosphate 22 meq/ Calcium Gluconate 2.3 meq/Magnesium Sulfate 8 meq/ Multivitamins 10 ml/Chromium/ Copper/Manganese/ Zinc 1 ml/Amino Acids/Dextrose 1,582.9462 ml @ 66 mls/hr Q24H IV 11/18/24 22:00 11/19/24 21:59 Cancel Sodium Chloride 10 ml QSHIFT@10,22 IV 11/25/24 22:00 12/03/24 09:22 10 ML Amino Acids 0 ml @ 0 mls/hr PER PHARMACY IV 11/25/24 12:45 Linezolid 300 ml @ 150 mls/hr Q12HR IV 11/25/24 22:00 12/02/24 21:34 150 MLS/HR Potassium Chloride 100 ml @ 50 mls/hr Q2H IV 11/27/24 11:30 11/27/24 15:29 UNV Albumin Human 50 ml @ 100 mls/hr Q8H IV 11/29/24 07:45 Cancel Lorazepam 0.5 mg Q6HP PRN IV 11/29/24 09:00 12/01/24 22:43 0.5 MG Micafungin Sodium 100 mg/Sodium Chloride 100 ml @ 100 mls/hr DAILY IV 12/01/24 10:00 12/03/24 09:20 100 MLS/HR Enoxaparin Sodium 140 mg Q12HR SC 12/02/24 10:00 Ipratropium [place] 0.5 mg Q6HR NEB 12/02/24 09:00 12/03/24 06:07 0.5 MG Levalbuterol HCl 0.625 mg Q6HR NEB 12/02/24 09:00 12/03/24 00:18 0.625 MG Fat Emulsion Intravenous 200 ml/Sodium Chloride 130 meq/ Sodium Phosphate 30 meq/Potassium Acetate 40 meq/ Calcium Gluconate 4.65 meq/ Magnesium Sulfate 20 meq/ Multivitamins 10 ml/Amino Acids/ Dextrose 1,885 ml @ 78 mls/hr [id number] IV 12/02/24 22:00 12/03/24 21:59 12/02/24 21:33 78 MLS/HR Carvedilol 12.5 mg Q12HR PO 12/02/24 22:00 12/03/24 09:22 12.5 MG Cefepime HCl 50 ml @ 12.5 mls/hr Q8HR IV 12/03/24 14:00 UNV Laboratory Results Laboratory Tests 12/03/24 04:58 Chemistry Test 12/03/24 04:58 Albumin 2.4 g/dL (3.2-4.8) L Calcium Level 7.2 mg/dL (8.7-10.4) L Magnesium Level 1.9 mg/dL (1.6-2.6) Phosphorus Level 3.2 mg/dL (2.4-5.1) Total Protein 4.4 g/dL (5.7-8.2) L LFT Test 12/03/24 04:58 Alanine Aminotransferase (ALT) 33 U/L (7-40) Alkaline Phosphatase 70 U/L (46-116) Aspartate Amino Transferase (AST) 36 U/L (<34) H Total Bilirubin 1.0 mg/dL (0.2-1.0) Urinalysis Test 11/11/24 20:50 Urine Color Yellow (Yellow) Urine Clarity Clear (Clear) Urine pH 6.0 (5.0-9.0) Urine Specific [place] 1.021 (1.001-1.035) Urine Protein 1+ (Negative) H Urine Ketones Negative (Negative) Urine Blood 2+ /uL (Negative) H Urine Nitrite Negative (Negative) Urine Bilirubin Negative (Negative) Urine Urobilinogen 3 mg/dL (Negative) H Urine Leukocyte Esterase Negative /uL (Negative) Urine RBC 1 /hpf (0 - 3) Urine Microscopic WBC 6 /HPF (0-3) H Urine Squamous Epithelial Cells None seen /hpf (<5) Urine Bacteria None seen /hpf (None Seen) Urine Mucus Few (None Seen) Urine Glucose 1+ mg/dL (Normal) H Blood Gas Results Test 12/03/24 06:10 Arterial Blood pH 7.495 (7.350-7.450) FiO2 % 28.0 Microbiology Microbiology Date/Time Source Procedure Growth Status 12/01/24 17:30 Blood Blood Culture - Preliminary NO GROWTH AFTER 24 HOURS OF INCUBATION. Resulted 11/22/24 10:15 Abdomen Gram Stain - Final Complete 11/22/24 10:15 Abdomen Anaerobic Culture - Final Complete 11/22/24 10:15 Aerobic Culture - Final Escherichia coli Enterococcus faecium - VRE Complete 11/18/24 10:20 Voided Urine Urine Culture - Final Complete 11/15/24 13:15 Aspirate Gram Stain - Final Complete 11/15/24 13:15 Body Fluid Culture - Final Escherichia coli Complete Labs and/or images reviewed: Labs reviewed by me, Image(s) reviewed by me Assessment/Plan Assessment/Plan Impression: -severe sepsis secondary to perforated diverticulitis -obesity -hypokalemia -hyponatremia -right upper extremity DVT, repeat ultrasound reports resolution Plan: Events: WBC improving. Colostomy with Brown liquid stool. 1 Bloody BM. CXR with pulmonary vascular congestion-IV lasix -IV antibiotics: Continue Meropenem, Zyvox, micafungin -continue TPN. -PPI -pain management -out of bed as tolerated, physical therapy -incentive spirometer -Downgrade to JOSE ANTONIO -repeat labs in a.m. Critical care time spent with patient discussing and formulating plan of care: 40 minutes. This does not include time spent performing procedures. This medical document was created using an electronic medical record system with [email or web address] dictation system. Although this document has been carefully reviewed, there may still be some phonetic and typographical errors. These areas are purely typographical due to imperfections of the software programs, and do not reflect any compromise in the patient's medical care. Plan discussed with: Patient, Other (RN) My Orders Orders - SANDRA GOODMAN NP Procedure Category Date Status Time Amino Acid PHA 12/02/24 In Process Infusion... W/Fat 22:00 Carvedilol Tablet PHA 12/02/24 In Process (Coreg Tablet) 22:00 Tpn Per Pharmacy PETE 12/02/24 In Process 22:00 Hydrocodone-Acet PHA 12/03/24 Transmitted 5/325mg Tab ([place] 10:00 Transfer Orders XFER 12/03/24 Transmitted 10:00 Date of Service: Dec 03, 2024 Billing Provider: SANDRA GOODMAN NP Common Visit Codes: [id number] CARE 30-74 MIN SANDRA GOODMAN NP Dec 03, 2024 10:05
[2024-12-03] MEDS: CEFEPIME 2GM/50ML NS 50 ML IV ONE (12:10)
--- NOTE | 2024-12-03 12:44 | DVHPN2 ---
Progress Note Date Seen: Dec 03, 2024 Medical Necessity Reason Pt with a Central, PICC or Fol: No Objective vital signs Vital Sign Date Time Temp Pulse Resp B/P (MAP) Pulse Ox O2 Delivery O2 Flow Rate FiO2 12/03/24 12:00 99.9 103 18 113/65 (81) 99.9 12/03/24 11:35 94 12/03/24 11:21 Nasal Cannula 2.0 12/03/24 11:21 28 Total Intake and Output 12/02/24 12/02/24 12/03/24 15:00 23:00 07:00 Intake Total 1824 ml 1627 ml 1246 ml Output Total 1890 ml 1060 ml Balance 1824 ml -263 ml 186 ml medications Current Medications Medications Dose Ordered Sig/Edis Route Start Time Stop Time Status Last Admin Dose Admin Acetaminophen 650 mg Q6HPRN PRN PO 11/11/24 23:45 12/03/24 09:22 650 MG Piperacillin Sod/ Tazobactam Sod 100 ml @ 25 mls/hr Q8HR IV 11/12/24 06:00 UNV Ondansetron HCl 4 mg Q4HPRN PRN IV 11/12/24 07:45 11/25/24 06:32 4 MG Pantoprazole Sodium 40 mg DAILY IV 11/13/24 10:00 12/03/24 09:20 40 MG Morphine Sulfate 2 mg Q4HPRN PRN IV 11/12/24 16:45 12/02/24 23:41 2 MG Vancomycin HCl 300 ml @ 200 mls/hr Q12H IV 11/13/24 15:00 UNV Dextrose 50 ml UD IV 11/15/24 12:00 Diagnostic Test (Pha) 1 strip Q6HR 11/15/24 18:00 12/03/24 12:13 1 STRIP Insulin Human Regular FOLLOW SLIDING SCALE Q6HR SC 11/15/24 18:00 12/03/24 12:13 4 UNITS Hydralazine HCl 10 mg Q6HP PRN IV 11/16/24 15:45 12/01/24 15:50 10 MG Fat Emulsion Intravenous 200 ml/Sodium Chloride 80 meq/ Sodium Acetate 40 meq/Potassium Chloride 40 meq/ Potassium Phosphate 22 meq/ Calcium Gluconate 2.3 meq/Magnesium Sulfate 8 meq/ Multivitamins 10 ml/Chromium/ Copper/Manganese/ Zinc 1 ml/Amino Acids/Dextrose 1,582.9462 ml @ 66 mls/hr Q24H IV 11/18/24 22:00 11/19/24 21:59 Cancel Sodium Chloride 10 ml QSHIFT@10,22 IV 11/25/24 22:00 12/03/24 09:22 10 ML Linezolid 300 ml @ 150 mls/hr Q12HR IV 11/25/24 22:00 12/03/24 10:18 150 MLS/HR Potassium Chloride 100 ml @ 50 mls/hr Q2H IV 11/27/24 11:30 11/27/24 15:29 UNV Albumin Human 50 ml @ 100 mls/hr Q8H IV 11/29/24 07:45 Cancel Lorazepam 0.5 mg Q6HP PRN IV 11/29/24 09:00 12/01/24 22:43 0.5 MG Micafungin Sodium 100 mg/Sodium Chloride 100 ml @ 100 mls/hr DAILY IV 12/01/24 10:00 12/03/24 09:20 100 MLS/HR Enoxaparin Sodium 140 mg Q12HR SC 12/02/24 10:00 Ipratropium [place] 0.5 mg Q6HR NEB 12/02/24 09:00 12/03/24 11:21 0.5 MG Levalbuterol HCl 0.625 mg Q6HR NEB 12/02/24 09:00 12/03/24 11:21 0.625 MG Carvedilol 12.5 mg Q12HR PO 12/02/24 22:00 12/03/24 09:22 12.5 MG Cefepime HCl 50 ml @ 12.5 mls/hr Q8H IV 12/03/24 18:00 Acetaminophen/ Hydrocodone Bitart 1 tab Q4HPRN PRN PO 12/03/24 10:00 Fat Emulsion Intravenous 200 ml/Sodium Chloride 160 meq/ Potassium Acetate 20 meq/Potassium Phosphate 30 meq/ Calcium Gluconate 6 meq/Magnesium Sulfate 24 meq/ Multivitamins 10 ml/Chromium/ Copper/Manganese/ Zinc 1 ml/Amino Acids/Dextrose 1,886.7214 ml @ 78 mls/hr [id number] IV 12/03/24 22:00 12/03/24 22:00 Cancel laboratory and microbiology Laboratory Tests 12/03/24 04:58 Test 12/03/24 04:58 Range/Units Serum Glucose 151 H 74-106 mg/dL Problem List/Assessment/Plan Problem List/Assessment/Plan 11/13/24feels well, abdomen non tender, ;leukocytosis, continue, as is, repeat CT scan in 48 hours 11/15/24 UNDERWENT PERCUTANEOUS DRAINAGE OF PERICOLONIC ABSCESS, ABDOMEN NON DISTENDED, NON TENDER. WILL FOLLOW 11/16/24 feels well, hungry, abdomen non tyender, derainage purulent, will irrigate, allow po intake 11/19/24 NO ABDOMINAL PAIN, NO NAUSEA, ABDOMEN NON TENDER, PICC LINE WAS REMOVED ,WILL CHECK CBC IN AM 11/20/24 await CBC tomorrow to decide on next step, abdomen non ternder but no BM, he feels "backed Up" will get gastrografin bowel x ray. 11/21/24 patient had a few bowel movements but feels worse, although his abdomen is not tender, his WBC is climbing and his CT scan looks much worse. I gave the patient the option to go back to NPO and TPN vs an operation with a colostomy, he choses to be operated on and get a colostomy as this "may be a faster way to get better". Operation, risks and complications explained in detail/ 11/27/24 feels better, no flatus in stoma bag, stoma viable,wound with some infection at inferior aspect of infraumbilical extent, abdomen appropriately tender, will allow ice chips and sips of water, must be out iof bed q 4 hours 11/29/24 ABDOMEN NON DISTENDED, APPROPRIATELY TENDER ,STOMA VIABLE WITH LIQUID OUTPUT BUT ONLY SMALL AMOUNT OF FLATUS. PATIENT IS BELCHING , FLUID [id number] IN THE RIGHT PELVIS IS NOT ADEQUATELY DRAINED BY THE INDWELLING DRAIN, WILL REQUEST RADIOLOGIST TO ATTEMPT MORE ADEQUATE DRAINAGE UNDER CT GUIDANCE. WILL INCREASE iv FLUIDS DUE TO TACHYCARDIA AND EVIDENCE OF BOWEL DISTENSION 11/30/24 appears tachypneic, has tachycardia. abdomen non distended, stoma viable and with liquid output but without flatus.wound ok, will ask pulm. to see, to r/o need for bronchoscopy and r/o PE. the radiologist did not feel a CT guided aspiration of pelvic fluid was feasible, will have nurses irrigate drain. will get inf. ds. consult 12/01/24, IMPROVED, DC NGT START PO CLEAR LIQUIDS 12/02/24 BP and Heart Rate controlled by Beta blockade, abdomen OK,stoma viable and functioning, advance diet and activity 12/03/24 feels ok abdomen soft, non distended, wound with small skin dehiscence at inferior aspect, stoma functioning, evacuating distal colon per rectum(expected) tomorrow can be downgraded Plan discussed with: Patient, Other Dietary Evaluation Review Comments: To meet at least 75% ofpt's needs, recommend TPN kcal to be increased to 1500-2000kcal range and protein to be increased to 80-90g/d. Expected Outcomes/Goals: Pt will experience a gradual wt loss at this kcal level, yet, the appropriated nutrition support of protein and kcal can enhance pt's GI perforation healing process, and help him regain normal GI functionality DANA CHOW MD Dec 03, 2024 12:44
[2024-12-03] MEDS: HYDROcodone-ACET 5/325MG TAB PO PRN (15:03)
--- NOTE | 2024-12-03 16:04 | DVHPN2 ---
Progress Note Date Seen: Dec 03, 2024 Resident Creating Document: JULIA MARES Medical Necessity Reason Pt with a Central, PICC or Fol: No Subjective Review of Systems Patient was seen today on bedside Patient was started on soft diet WBC trending down On broad-spectrum antibiotic H&H stable Objective vital signs Vital Sign Date Time Temp Pulse Resp B/P (MAP) Pulse Ox O2 Delivery O2 Flow Rate FiO2 12/03/24 14:00 24 97 Nasal Cannula* 2 28 12/03/24 14:00 101 12/03/24 13:00 123/68 (86) 12/03/24 12:00 99.9 99.9 Total Intake and Output 12/02/24 12/02/24 12/03/24 15:00 23:00 07:00 Intake Total 1824 ml 1627 ml 1246 ml Output Total 1890 ml 1060 ml Balance 1824 ml -263 ml 186 ml medications Current Medications Medications Dose Ordered Sig/Edis Route Start Time Stop Time Status Last Admin Dose Admin Acetaminophen 650 mg Q6HPRN PRN PO 11/11/24 23:45 12/03/24 09:22 650 MG Piperacillin Sod/ Tazobactam Sod 100 ml @ 25 mls/hr Q8HR IV 11/12/24 06:00 UNV Ondansetron HCl 4 mg Q4HPRN PRN IV 11/12/24 07:45 11/25/24 06:32 4 MG Pantoprazole Sodium 40 mg DAILY IV 11/13/24 10:00 12/03/24 09:20 40 MG Morphine Sulfate 2 mg Q4HPRN PRN IV 11/12/24 16:45 12/02/24 23:41 2 MG Vancomycin HCl 300 ml @ 200 mls/hr Q12H IV 11/13/24 15:00 UNV Dextrose 50 ml UD IV 11/15/24 12:00 Hydralazine HCl 10 mg Q6HP PRN IV 11/16/24 15:45 12/01/24 15:50 10 MG Fat Emulsion Intravenous 200 ml/Sodium Chloride 80 meq/ Sodium Acetate 40 meq/Potassium Chloride 40 meq/ Potassium Phosphate 22 meq/ Calcium Gluconate 2.3 meq/Magnesium Sulfate 8 meq/ Multivitamins 10 ml/Chromium/ Copper/Manganese/ Zinc 1 ml/Amino Acids/Dextrose 1,582.9462 ml @ 66 mls/hr Q24H IV 11/18/24 22:00 11/19/24 21:59 Cancel Sodium Chloride 10 ml QSHIFT@10,22 IV 11/25/24 22:00 12/03/24 09:22 10 ML Linezolid 300 ml @ 150 mls/hr Q12HR IV 11/25/24 22:00 12/03/24 10:18 150 MLS/HR Potassium Chloride 100 ml @ 50 mls/hr Q2H IV 11/27/24 11:30 11/27/24 15:29 UNV Albumin Human 50 ml @ 100 mls/hr Q8H IV 11/29/24 07:45 Cancel Lorazepam 0.5 mg Q6HP PRN IV 11/29/24 09:00 12/01/24 22:43 0.5 MG Micafungin Sodium 100 mg/Sodium Chloride 100 ml @ 100 mls/hr DAILY IV 12/01/24 10:00 12/03/24 09:20 100 MLS/HR Enoxaparin Sodium 140 mg Q12HR SC 12/02/24 10:00 Ipratropium [place] 0.5 mg Q6HR NEB 12/02/24 09:00 12/03/24 11:21 0.5 MG Levalbuterol HCl 0.625 mg Q6HR NEB 12/02/24 09:00 12/03/24 11:21 0.625 MG Carvedilol 12.5 mg Q12HR PO 12/02/24 22:00 12/03/24 09:22 12.5 MG Cefepime HCl 50 ml @ 12.5 mls/hr Q8H IV 12/03/24 18:00 Acetaminophen/ Hydrocodone Bitart 1 tab Q4HPRN PRN PO 12/03/24 10:00 12/03/24 15:03 1 TAB Fat Emulsion Intravenous 200 ml/Sodium Chloride 160 meq/ Potassium Acetate 20 meq/Potassium Phosphate 30 meq/ Calcium Gluconate 6 meq/Magnesium Sulfate 24 meq/ Multivitamins 10 ml/Chromium/ Copper/Manganese/ Zinc 1 ml/Amino Acids/Dextrose 1,886.7214 ml @ 78 mls/hr [id number] IV 12/03/24 22:00 12/03/24 22:00 Cancel laboratory and microbiology Laboratory Tests 12/03/24 04:58 Test 12/03/24 04:58 Range/Units Serum Glucose 151 H 74-106 mg/dL Microbiology Date/Time Source Procedure Growth Status 12/01/24 17:30 Blood Blood Culture - Preliminary NO GROWTH AFTER 24 HOURS OF INCUBATION. Resulted 11/22/24 10:15 Abdomen Gram Stain - Final Complete 11/22/24 10:15 Abdomen Anaerobic Culture - Final Complete 11/22/24 10:15 Aerobic Culture - Final Escherichia coli Enterococcus faecium - VRE Complete 11/18/24 10:20 Voided Urine Urine Culture - Final Complete 11/15/24 13:15 Aspirate Gram Stain - Final Complete 11/15/24 13:15 Body Fluid Culture - Final Escherichia coli Complete Problem List/Assessment/Plan Problem List/Assessment/Plan Assessment and plan Problems(with codes): (1) perforated Diverticulitis large intestine (2) Abnormal finding on GI tract imaging (3) Abscess of sigmoid colon due to diverticulitis (4) Leukocytosis Events Patient was started on soft diet WBC trending down On broad-spectrum antibiotic H&H stable Prognosis Plan Patient was started on soft diet Continue broad spectrum IV antibiotics Incentive spirometry Surgical input appreciated On DVT prophylaxis On pantoprazole IV 40 mg daily Physical therapy as tolerate Plan discussed with Dr. Emilee Sharma , nursing staff, Total time spent on patient evaluation, chart review, assessment and plan, discussion discussion >35 minutes Plan discussed with: Patient, Other (RN) Dietary Evaluation Review Comments: To meet at least 75% ofpt's needs, recommend TPN kcal to be increased to 1500-2000kcal range and protein to be increased to 80-90g/d. Expected Outcomes/Goals: Pt will experience a gradual wt loss at this kcal level, yet, the appropriated nutrition support of protein and kcal can enhance pt's GI perforation healing process, and help him regain normal GI functionality JULIA MARES RESIDENT Dec 03, 2024 16:04
[2024-12-03] MEDS: CEFEPIME 2GM/50ML NS 50 ML IV SCH (18:57)
--- NOTE | 2024-12-03 19:07 | DVHPN2 ---
Progress Note - Dictate Date Seen: Dec 03, 2024 Medical Necessity Reason Pt with a Central, PICC or Fol: No vital signs Vital Sign Date Time Temp Pulse Resp B/P (MAP) Pulse Ox O2 Delivery O2 Flow Rate FiO2 12/03/24 18:00 112 12/03/24 18:00 24 149/73 (98) 96 12/03/24 18:00 Nasal Cannula* 2 28 12/03/24 16:00 97.7 97.7 Total Intake and Output 12/02/24 12/02/24 12/03/24 14:59 22:59 06:59 Intake Total 1990 ml 1460 ml 1397 ml Output Total 1890 ml 1060 ml Balance 1990 ml -430 ml 337 ml medications Current Medications Medications Dose Ordered Sig/Edis Route Start Time Stop Time Status Last Admin Dose Admin Acetaminophen 650 mg Q6HPRN PRN PO 11/11/24 23:45 12/03/24 09:22 650 MG Piperacillin Sod/ Tazobactam Sod 100 ml @ 25 mls/hr Q8HR IV 11/12/24 06:00 UNV Ondansetron HCl 4 mg Q4HPRN PRN IV 11/12/24 07:45 11/25/24 06:32 4 MG Pantoprazole Sodium 40 mg DAILY IV 11/13/24 10:00 12/03/24 09:20 40 MG Morphine Sulfate 2 mg Q4HPRN PRN IV 11/12/24 16:45 12/02/24 23:41 2 MG Vancomycin HCl 300 ml @ 200 mls/hr Q12H IV 11/13/24 15:00 UNV Dextrose 50 ml UD IV 11/15/24 12:00 Hydralazine HCl 10 mg Q6HP PRN IV 11/16/24 15:45 12/01/24 15:50 10 MG Fat Emulsion Intravenous 200 ml/Sodium Chloride 80 meq/ Sodium Acetate 40 meq/Potassium Chloride 40 meq/ Potassium Phosphate 22 meq/ Calcium Gluconate 2.3 meq/Magnesium Sulfate 8 meq/ Multivitamins 10 ml/Chromium/ Copper/Manganese/ Zinc 1 ml/Amino Acids/Dextrose 1,582.9462 ml @ 66 mls/hr Q24H IV 11/18/24 22:00 11/19/24 21:59 Cancel Sodium Chloride 10 ml QSHIFT@10,22 IV 11/25/24 22:00 12/03/24 09:22 10 ML Linezolid 300 ml @ 150 mls/hr Q12HR IV 11/25/24 22:00 12/03/24 10:18 150 MLS/HR Potassium Chloride 100 ml @ 50 mls/hr Q2H IV 11/27/24 11:30 11/27/24 15:29 UNV Albumin Human 50 ml @ 100 mls/hr Q8H IV 11/29/24 07:45 Cancel Lorazepam 0.5 mg Q6HP PRN IV 11/29/24 09:00 12/01/24 22:43 0.5 MG Micafungin Sodium 100 mg/Sodium Chloride 100 ml @ 100 mls/hr DAILY IV 12/01/24 10:00 12/03/24 09:20 100 MLS/HR Enoxaparin Sodium 140 mg Q12HR SC 12/02/24 10:00 Ipratropium [place] 0.5 mg Q6HR NEB 12/02/24 09:00 12/03/24 11:21 0.5 MG Levalbuterol HCl 0.625 mg Q6HR NEB 12/02/24 09:00 12/03/24 11:21 0.625 MG Carvedilol 12.5 mg Q12HR PO 12/02/24 22:00 12/03/24 09:22 12.5 MG Cefepime HCl 50 ml @ 12.5 mls/hr Q8H IV 12/03/24 18:00 12/03/24 18:57 12.5 MLS/HR Acetaminophen/ Hydrocodone Bitart 1 tab Q4HPRN PRN PO 12/03/24 10:00 12/03/24 15:03 1 TAB Fat Emulsion Intravenous 200 ml/Sodium Chloride 160 meq/ Potassium Acetate 20 meq/Potassium Phosphate 30 meq/ Calcium Gluconate 6 meq/Magnesium Sulfate 24 meq/ Multivitamins 10 ml/Chromium/ Copper/Manganese/ Zinc 1 ml/Amino Acids/Dextrose 1,886.7214 ml @ 78 mls/hr [id number] IV 12/03/24 22:00 12/03/24 22:00 Cancel laboratory and microbiology Laboratory Tests 12/03/24 04:58 Test 12/03/24 04:58 Range/Units Serum Glucose 151 H 74-106 mg/dL Assessment/Plan Impression Acute hypoxemic respiratory failure Nonocclusive DVT Bowel perforation Atelectasis Patient seen and examined in JOSE ANTONIO Events Low oxygen requirements On 2 liters nasal cannula No major changes GIOVANNY drains in place s/p ex lap Labs and imaging reviewed Management Supplemental oxygen Titrate to maintain sats 90% or above Incentive spirometry Continue antibiotics F/u cultures Bronchodilators Recommend diuresis Monitor renal function Monitor electrolytes Supplement as needed Pain control Avoid oversedation F/u general surgery DVT prophylaxis Critical care time 35 minutes Dietary Evaluation Review Comments: To meet at least 75% ofpt's needs, recommend TPN kcal to be increased to 1500-2000kcal range and protein to be increased to 80-90g/d. Expected Outcomes/Goals: Pt will experience a gradual wt loss at this kcal level, yet, the appropriated nutrition support of protein and kcal can enhance pt's GI perforation healing process, and help him regain normal GI functionality Plan discussed with: Patient DALJIT BATRES MD Dec 03, 2024 19:07
--- NOTE | 2024-12-03 21:36 | DVHPN2 ---
Progress Note - Dictate Date Seen: Dec 03, 2024 Medical Necessity Reason Pt with a Central, PICC or Fol: Yes The following are medically ne: PICC Line Subjective Patient was started on soft diet. WBC trending down. vital signs Vital Sign Date Time Temp Pulse Resp B/P (MAP) Pulse Ox O2 Delivery O2 Flow Rate FiO2 12/03/24 21:21 111 152/81 12/03/24 20:24 24 95 12/03/24 20:16 Nasal Cannula* 2 28 12/03/24 16:00 97.7 97.7 Total Intake and Output 12/02/24 12/02/24 12/03/24 15:00 23:00 07:00 Intake Total 1824 ml 1627 ml 1246 ml Output Total 1890 ml 1060 ml Balance 1824 ml -263 ml 186 ml medications Current Medications Medications Dose Ordered Sig/Edis Route Start Time Stop Time Status Last Admin Dose Admin Acetaminophen 650 mg Q6HPRN PRN PO 11/11/24 23:45 12/03/24 09:22 650 MG Piperacillin Sod/ Tazobactam Sod 100 ml @ 25 mls/hr Q8HR IV 11/12/24 06:00 UNV Ondansetron HCl 4 mg Q4HPRN PRN IV 11/12/24 07:45 11/25/24 06:32 4 MG Pantoprazole Sodium 40 mg DAILY IV 11/13/24 10:00 12/03/24 09:20 40 MG Morphine Sulfate 2 mg Q4HPRN PRN IV 11/12/24 16:45 12/02/24 23:41 2 MG Vancomycin HCl 300 ml @ 200 mls/hr Q12H IV 11/13/24 15:00 UNV Dextrose 50 ml UD IV 11/15/24 12:00 Hydralazine HCl 10 mg Q6HP PRN IV 11/16/24 15:45 12/01/24 15:50 10 MG Fat Emulsion Intravenous 200 ml/Sodium Chloride 80 meq/ Sodium Acetate 40 meq/Potassium Chloride 40 meq/ Potassium Phosphate 22 meq/ Calcium Gluconate 2.3 meq/Magnesium Sulfate 8 meq/ Multivitamins 10 ml/Chromium/ Copper/Manganese/ Zinc 1 ml/Amino Acids/Dextrose 1,582.9462 ml @ 66 mls/hr Q24H IV 11/18/24 22:00 11/19/24 21:59 Cancel Sodium Chloride 10 ml QSHIFT@10,22 IV 11/25/24 22:00 12/03/24 21:18 10 ML Linezolid 300 ml @ 150 mls/hr Q12HR IV 11/25/24 22:00 12/03/24 21:18 150 MLS/HR Potassium Chloride 100 ml @ 50 mls/hr Q2H IV 11/27/24 11:30 11/27/24 15:29 UNV Albumin Human 50 ml @ 100 mls/hr Q8H IV 11/29/24 07:45 Cancel Lorazepam 0.5 mg Q6HP PRN IV 11/29/24 09:00 12/03/24 21:22 0.5 MG Micafungin Sodium 100 mg/Sodium Chloride 100 ml @ 100 mls/hr DAILY IV 12/01/24 10:00 12/03/24 09:20 100 MLS/HR Enoxaparin Sodium 140 mg Q12HR SC 12/02/24 10:00 12/03/24 21:21 140 MG Ipratropium [place] 0.5 mg Q6HR NEB 12/02/24 09:00 12/03/24 20:14 0.5 MG Levalbuterol HCl 0.625 mg Q6HR NEB 12/02/24 09:00 12/03/24 20:16 0.625 MG Carvedilol 12.5 mg Q12HR PO 12/02/24 22:00 12/03/24 21:21 12.5 MG Cefepime HCl 50 ml @ 12.5 mls/hr Q8H IV 12/03/24 18:00 12/03/24 18:57 12.5 MLS/HR Acetaminophen/ Hydrocodone Bitart 1 tab Q4HPRN PRN PO 12/03/24 10:00 12/03/24 15:03 1 TAB Fat Emulsion Intravenous 200 ml/Sodium Chloride 160 meq/ Potassium Acetate 20 meq/Potassium Phosphate 30 meq/ Calcium Gluconate 6 meq/Magnesium Sulfate 24 meq/ Multivitamins 10 ml/Chromium/ Copper/Manganese/ Zinc 1 ml/Amino Acids/Dextrose 1,886.7214 ml @ 78 mls/hr [id number] IV 12/03/24 22:00 12/03/24 22:00 Cancel objective General Appearance: Alert, Oriented X3, Cooperative, No acute distress obese HEENT: Atraumatic, PERRLA, EOMI, Mucous membrane moist/pink Respiratory: Clear to auscultation, Normal air movement Cardiovascular: Regular rate, Normal S1, Normal S2, No murmurs, no chest wall tenderness Abdominal: s/p abdominal surgery, has GIOVANNY drain. midline incision site looks ok. has colostomy. 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 s/p colon resection on 11/22 s/p colostomy with output. had diverticular abscess with OR cx grew VRE He is on broad spectrum antibiotics Linezolid, Meropenem and Micafungin. WBC is slowly tapering down. repeat blood cx if he spikes fever again >100.[address] abdomen and pelvis with contrast if spikes again. reviewed OR notes Review of cultures: 11/11, Blood culture showed no growth 11/11, Urine culture showed no growth 11/12, MRSA screening came back negative 11/13, Urine culture showed no growth 11/15, Body fluid culture showed E. coli 11/18, Blood culture showed no growth 11/18, urine culture showed no growth 11/22, OR culture showed E. coli and Enterococcus faecium 11/28, Blood culture showed no growth 12/01, Blood culture preliminary showed no growth Antibiotic status: Micafungin IV [Started on 12/01 - Ongoing] Linezolid IV [Started on 11/25 - Ongoing] Meropenem IV [Given on 11/29 - Ongoing] Flagyl IV Started on 11/22 - 11/29] Ceftriaxone IV [Started on 11/25 - 11/29] prognosis gaurded total time 50 minutes spent plan discussed with team Thank you for consult Dietary Evaluation Review Comments: To meet at least 75% ofpt's needs, recommend TPN kcal to be increased to 1500-2000kcal range and protein to be increased to 80-90g/d. Expected Outcomes/Goals: Pt will experience a gradual wt loss at this kcal level, yet, the appropriated nutrition support of protein and kcal can enhance pt's GI perforation healing process, and help him regain normal GI functionality Plan discussed with: Other MAKENNA STONER MD Dec 03, 2024 21:36
[2024-12-03] MEDS ORDERED: TPN PER PHARMACY IV NR (22:00)
[2024-12-04] VITALS (28 sets, daily range): BP systolic 101–157; BP diastolic 60–80; PULSE 105–133; RESP 16–29; TEMP 97.9–100.2; O2SAT 93–100
[2024-12-04 05:14] LABS: Anion Gap 6.0 (5-15); Carbon Dioxide 28.0 mmol/L (20-31); Chloride 100.0 mmol/L (98-107); Potassium 4.4 mmol/L (3.5-5.1)
[2024-12-04 05:18] LABS: Calcium 7.5 mg/dL (8.7-10.4); Sodium 134.0 mmol/L (136-145)
[2024-12-04 05:19] LABS: Glucose 105.0 mg/dL (74-106)
[2024-12-04 05:20] LABS: BUN/Creatinine Ratio 37.0 (10.0-20.0); Blood Urea Nitrogen 17.0 mg/dL (9-23); Magnesium 1.9 mg/dL (1.6-2.6)
[2024-12-04 05:42] LABS: Albumin 2.5 g/dL (3.2-4.8)
--- NOTE | 2024-12-04 09:50 | DVH ---
CHEST RADIOGRAPH Indication: SHORTNESS OF BREATH Technique: Single frontal view of the chest was obtained COMPARISON: XY CHEST PORTABLE on DOS: 12/03/24, XY CHEST XRAY 1 VIEW on DOS: 12/02/24, XY CHEST PORTABL E on DOS: 11/29/24, XY CHEST PORTABLE on DOS: 11/29/24, XY CHEST XRAY 1 VIEW on DOS: 11/23/24 FINDINGS: Lines and Tubes: Left PICC in satisfactory position. Lungs: Low lung volumes. Bibasilar subsegmental atelectasis. Pleura: No effusion. No pneumothorax. Cardiomediastinal contours: Cardiomegaly Bones: Unremarkable IMPRESSION: No significant interval change.
--- NOTE | 2024-12-04 10:05 | DVHPN2 ---
Progress Note - Dictate Date Seen: Dec 04, 2024 Medical Necessity Reason Pt with a Central, PICC or Fol: No Subjective Patient had low grade fever last night. CT Angio of the chest negative for pulmonary embolism. vital signs Vital Sign Date Time Temp Pulse Resp B/P (MAP) Pulse Ox O2 Delivery O2 Flow Rate FiO2 12/04/24 09:28 114 130/74 12/04/24 08:00 26 96 Nasal Cannula* 2 28 12/04/24 04:00 97.9 97.9 Total Intake and Output 12/03/24 12/03/24 12/04/24 15:00 23:00 07:00 Intake Total 684 ml 950 ml 780 ml Output Total 2015 ml 840 ml Balance 684 ml -1065 ml -60 ml medications Current Medications Medications Dose Ordered Sig/Edis Route Start Time Stop Time Status Last Admin Dose Admin Acetaminophen 650 mg Q6HPRN PRN PO 11/11/24 23:45 12/03/24 09:22 650 MG Piperacillin Sod/ Tazobactam Sod 100 ml @ 25 mls/hr Q8HR IV 11/12/24 06:00 UNV Ondansetron HCl 4 mg Q4HPRN PRN IV 11/12/24 07:45 11/25/24 06:32 4 MG Pantoprazole Sodium 40 mg DAILY IV 11/13/24 10:00 12/04/24 09:28 40 MG Morphine Sulfate 2 mg Q4HPRN PRN IV 11/12/24 16:45 12/04/24 01:36 2 MG Vancomycin HCl 300 ml @ 200 mls/hr Q12H IV 11/13/24 15:00 UNV Dextrose 50 ml UD IV 11/15/24 12:00 Hydralazine HCl 10 mg Q6HP PRN IV 11/16/24 15:45 12/01/24 15:50 10 MG Fat Emulsion Intravenous 200 ml/Sodium Chloride 80 meq/ Sodium Acetate 40 meq/Potassium Chloride 40 meq/ Potassium Phosphate 22 meq/ Calcium Gluconate 2.3 meq/Magnesium Sulfate 8 meq/ Multivitamins 10 ml/Chromium/ Copper/Manganese/ Zinc 1 ml/Amino Acids/Dextrose 1,582.9462 ml @ 66 mls/hr Q24H IV 11/18/24 22:00 11/19/24 21:59 Cancel Sodium Chloride 10 ml QSHIFT@10,22 IV 11/25/24 22:00 12/04/24 09:28 10 ML Linezolid 300 ml @ 150 mls/hr Q12HR IV 11/25/24 22:00 12/04/24 08:51 150 MLS/HR Potassium Chloride 100 ml @ 50 mls/hr Q2H IV 11/27/24 11:30 11/27/24 15:29 UNV Albumin Human 50 ml @ 100 mls/hr Q8H IV 11/29/24 07:45 Cancel Lorazepam 0.5 mg Q6HP PRN IV 11/29/24 09:00 12/03/24 21:22 0.5 MG Micafungin Sodium 100 mg/Sodium Chloride 100 ml @ 100 mls/hr DAILY IV 12/01/24 10:00 12/04/24 07:37 100 MLS/HR Enoxaparin Sodium 140 mg Q12HR SC 12/02/24 10:00 12/03/24 21:21 140 MG Ipratropium [place] 0.5 mg Q6HR NEB 12/02/24 09:00 12/04/24 06:40 0.5 MG Levalbuterol HCl 0.625 mg Q6HR NEB 12/02/24 09:00 12/04/24 06:41 0.625 MG Carvedilol 12.5 mg Q12HR PO 12/02/24 22:00 12/04/24 09:28 12.5 MG Cefepime HCl 50 ml @ 12.5 mls/hr Q8H IV 12/03/24 18:00 12/04/24 02:20 12.5 MLS/HR Acetaminophen/ Hydrocodone Bitart 1 tab Q4HPRN PRN PO 12/03/24 10:00 12/03/24 15:03 1 TAB Fat Emulsion Intravenous 200 ml/Sodium Chloride 160 meq/ Potassium Acetate 20 meq/Potassium Phosphate 30 meq/ Calcium Gluconate 6 meq/Magnesium Sulfate 24 meq/ Multivitamins 10 ml/Chromium/ Copper/Manganese/ Zinc 1 ml/Amino Acids/Dextrose 1,886.7214 ml @ 78 mls/hr [id number] IV 12/03/24 22:00 12/03/24 22:00 Cancel objective GGeneral Appearance: Alert, Oriented X3, Cooperative, No acute distress obese HEENT: Atraumatic, PERRLA, EOMI, Mucous membrane moist/pink Respiratory: Clear to auscultation, Normal air movement Cardiovascular: Regular rate, Normal S1, Normal S2, No murmurs, no chest wall tenderness Abdominal: s/p abdominal surgery, has GIOVANNY drain. midline incision site looks ok. has colostomy. 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 s/p colon resection on 11/22 s/p colostomy with output. had diverticular abscess with OR cx grew VRE He is on broad spectrum antibiotics Linezolid, Meropenem and Micafungin. WBC is slowly tapering down. will dc meropenem and start IV cefepime ( ecoli is sensitive) repeat blood cx if he spikes fever again >100.[address] abdomen and pelvis with contrast if spikes again. no fever reviewed OR notes surgery is on board, no new events Review of cultures: 11/11, Blood culture showed no growth 11/11, Urine culture showed no growth 11/12, MRSA screening came back negative 11/13, Urine culture showed no growth 11/15, Body fluid culture showed E. coli 11/18, Blood culture showed no growth 11/18, urine culture showed no growth 11/22, OR culture showed E. coli and Enterococcus faecium 11/28, Blood culture showed no growth 12/01, Blood culture preliminary showed no growth Antibiotic status: IV Vancomycin/ zosyn Cefepime IV [Started on 12/03 - Ongoing] Micafungin IV [Started on 12/01 - Ongoing] Linezolid IV [Started on 11/25 - Ongoing] Meropenem IV [Given on 11/29 - Ongoing] Flagyl IV Started on 11/22 - 11/29] Ceftriaxone IV [Started on 11/25 - 11/29] CXR personally reviewed, no consolidation prognosis gaurded total time 50 mins spent Thank you for consult Dietary Evaluation Review Comments: To meet at least 75% ofpt's needs, recommend TPN kcal to be increased to 1500-2000kcal range and protein to be increased to 80-90g/d. Expected Outcomes/Goals: Pt will experience a gradual wt loss at this kcal level, yet, the appropriated nutrition support of protein and kcal can enhance pt's GI perforation healing process, and help him regain normal GI functionality Plan discussed with: Patient MAKENNA STONER MD Dec 04, 2024 10:05
--- NOTE | 2024-12-04 10:43 | DVHPN2 ---
Subjective Patient denies any symptoms at this time. 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 General Appearance: Alert, Oriented X3, Cooperative, mild distress HEENT: Atraumatic, PERRLA Lungs: Clear to auscultation, Normal air movement, Other (Nasal cannula at 4 L/min) Cardiovascular: Normal S1, Normal S2, Other (Sinus tachycardia) Abdomen: Other (Absent bowel sounds. No output from colostomy. GIOVANNY with minimal serosanguineous drainage) Genitourinary: No Apparent Abnormalities (Hernandez catheter) Musculoskeletal: Normal sensory function, Normal motor function Neuro: Normal gait, Normal speech, Sensation intact, Cranial nerves 3-12 NL Skin: Dry, Intact Psych/Mental Status: Mental status NL, Mood NL Medications Current Medications Medications Dose Ordered Sig/Edis Route Start Time Stop Time Status Last Admin Dose Admin Acetaminophen 650 mg Q6HPRN PRN PO 11/11/24 23:45 12/03/24 09:22 650 MG Piperacillin Sod/ Tazobactam Sod 100 ml @ 25 mls/hr Q8HR IV 11/12/24 06:00 UNV Ondansetron HCl 4 mg Q4HPRN PRN IV 11/12/24 07:45 11/25/24 06:32 4 MG Pantoprazole Sodium 40 mg DAILY IV 11/13/24 10:00 12/04/24 09:28 40 MG Morphine Sulfate 2 mg Q4HPRN PRN IV 11/12/24 16:45 12/04/24 10:14 2 MG Vancomycin HCl 300 ml @ 200 mls/hr Q12H IV 11/13/24 15:00 UNV Dextrose 50 ml UD IV 11/15/24 12:00 Hydralazine HCl 10 mg Q6HP PRN IV 11/16/24 15:45 12/01/24 15:50 10 MG Fat Emulsion Intravenous 200 ml/Sodium Chloride 80 meq/ Sodium Acetate 40 meq/Potassium Chloride 40 meq/ Potassium Phosphate 22 meq/ Calcium Gluconate 2.3 meq/Magnesium Sulfate 8 meq/ Multivitamins 10 ml/Chromium/ Copper/Manganese/ Zinc 1 ml/Amino Acids/Dextrose 1,582.9462 ml @ 66 mls/hr Q24H IV 11/18/24 22:00 11/19/24 21:59 Cancel Sodium Chloride 10 ml QSHIFT@10,22 IV 11/25/24 22:00 12/04/24 09:28 10 ML Linezolid 300 ml @ 150 mls/hr Q12HR IV 11/25/24 22:00 12/04/24 08:51 150 MLS/HR Potassium Chloride 100 ml @ 50 mls/hr Q2H IV 11/27/24 11:30 11/27/24 15:29 UNV Albumin Human 50 ml @ 100 mls/hr Q8H IV 11/29/24 07:45 Cancel Lorazepam 0.5 mg Q6HP PRN IV 11/29/24 09:00 12/03/24 21:22 0.5 MG Micafungin Sodium 100 mg/Sodium Chloride 100 ml @ 100 mls/hr DAILY IV 12/01/24 10:00 12/04/24 07:37 100 MLS/HR Enoxaparin Sodium 140 mg Q12HR SC 12/02/24 10:00 12/04/24 10:25 140 MG Ipratropium [place] 0.5 mg Q6HR NEB 12/02/24 09:00 12/04/24 06:40 0.5 MG Levalbuterol HCl 0.625 mg Q6HR NEB 12/02/24 09:00 12/04/24 06:41 0.625 MG Cefepime HCl 50 ml @ 12.5 mls/hr Q8H IV 12/03/24 18:00 12/04/24 02:20 12.5 MLS/HR Acetaminophen/ Hydrocodone Bitart 1 tab Q4HPRN PRN PO 12/03/24 10:00 12/03/24 15:03 1 TAB Fat Emulsion Intravenous 200 ml/Sodium Chloride 160 meq/ Potassium Acetate 20 meq/Potassium Phosphate 30 meq/ Calcium Gluconate 6 meq/Magnesium Sulfate 24 meq/ Multivitamins 10 ml/Chromium/ Copper/Manganese/ Zinc 1 ml/Amino Acids/Dextrose 1,886.7214 ml @ 78 mls/hr [id number] IV 12/03/24 22:00 12/03/24 22:00 Cancel Carvedilol 25 mg Q12HR PO 12/04/24 22:00 UNV Laboratory Results Laboratory Tests 12/03/24 04:58 12/04/24 04:43 Chemistry Test 12/04/24 04:43 Albumin 2.5 g/dL (3.2-4.8) L Calcium Level 7.5 mg/dL (8.7-10.4) L Magnesium Level 1.9 mg/dL (1.6-2.6) Phosphorus Level 3.1 mg/dL (2.4-5.1) Urinalysis Test 11/11/24 20:50 Urine Color Yellow (Yellow) Urine Clarity Clear (Clear) Urine pH 6.0 (5.0-9.0) Urine Specific [place] 1.021 (1.001-1.035) Urine Protein 1+ (Negative) H Urine Ketones Negative (Negative) Urine Blood 2+ /uL (Negative) H Urine Nitrite Negative (Negative) Urine Bilirubin Negative (Negative) Urine Urobilinogen 3 mg/dL (Negative) H Urine Leukocyte Esterase Negative /uL (Negative) Urine RBC 1 /hpf (0 - 3) Urine Microscopic WBC 6 /HPF (0-3) H Urine Squamous Epithelial Cells None seen /hpf (<5) Urine Bacteria None seen /hpf (None Seen) Urine Mucus Few (None Seen) Urine Glucose 1+ mg/dL (Normal) H Microbiology Microbiology Date/Time Source Procedure Growth Status 12/01/24 17:30 Blood Blood Culture - Preliminary NO GROWTH AFTER 48 HOURS OF INCUBATION. Resulted 11/22/24 10:15 Abdomen Gram Stain - Final Complete 11/22/24 10:15 Abdomen Anaerobic Culture - Final Complete 11/22/24 10:15 Aerobic Culture - Final Escherichia coli Enterococcus faecium - VRE Complete 11/18/24 10:20 Voided Urine Urine Culture - Final Complete 11/15/24 13:15 Aspirate Gram Stain - Final Complete 11/15/24 13:15 Body Fluid Culture - Final Escherichia coli Complete Labs and/or images reviewed: Labs reviewed by me, Image(s) reviewed by me Assessment/Plan Assessment/Plan Impression: -severe sepsis secondary to perforated diverticulitis -obesity -hypokalemia -hyponatremia -right upper extremity DVT, repeat ultrasound reports resolution Plan: Events: WBC improving. Tachycardia -IV antibiotics: Continue Meropenem, Zyvox, micafungin -continue TPN. -PPI -pain management -out of bed as tolerated, physical therapy -incentive spirometer -Increase Coreg -repeat labs in a.m. Critical care time spent with patient discussing and formulating plan of care: 40 minutes. This does not include time spent performing procedures. This medical document was created using an electronic medical record system with [employer] dictation system. Although this document has been carefully reviewed, there may still be some phonetic and typographical errors. These areas are purely typographical due to imperfections of the software programs, and do not reflect any compromise in the patient's medical care. Plan discussed with: Patient, Other (RN) My Orders Orders - SANDRA GOODMAN NP Procedure Category Date Status Time Tpn Per Pharmacy PETE 12/03/24 In Process 22:00 Carvedilol Tablet PHA 12/04/24 Logged (Coreg Tablet) 22:00 Basic Metabolic Panel LAB 12/05/24 Verified 08:00 Basic Metabolic Panel LAB 12/06/24 Verified 08:00 Basic Metabolic Panel LAB 12/07/24 Verified 08:00 Complete Blood Count LAB 12/05/24 Verified 05:00 Complete Blood Count LAB 12/06/24 Verified 05:00 Complete Blood Count LAB 12/07/24 Verified 05:00 Date of Service: Dec 04, 2024 Billing Provider: SANDRA GOODMAN NP Common Visit Codes: [id number] CARE 30-74 MIN SANDRA GOODMAN NP Dec 04, 2024 10:43
--- NOTE | 2024-12-04 12:44 | DVHPN2 ---
Progress Note - Dictate Date Seen: Dec 04, 2024 Medical Necessity Reason Pt with a Central, PICC or Fol: No vital signs Vital Sign Date Time Temp Pulse Resp B/P (MAP) Pulse Ox O2 Delivery O2 Flow Rate FiO2 12/04/24 10:44 115 22 143/75 12/04/24 10:00 96 Nasal Cannula* 2 28 12/04/24 04:00 97.9 97.9 Total Intake and Output 12/03/24 12/03/24 12/04/24 15:00 23:00 07:00 Intake Total 684 ml 950 ml 780 ml Output Total 2015 ml 840 ml Balance 684 ml -1065 ml -60 ml medications Current Medications Medications Dose Ordered Sig/Edis Route Start Time Stop Time Status Last Admin Dose Admin Acetaminophen 650 mg Q6HPRN PRN PO 11/11/24 23:45 12/03/24 09:22 650 MG Piperacillin Sod/ Tazobactam Sod 100 ml @ 25 mls/hr Q8HR IV 11/12/24 06:00 UNV Ondansetron HCl 4 mg Q4HPRN PRN IV 11/12/24 07:45 11/25/24 06:32 4 MG Pantoprazole Sodium 40 mg DAILY IV 11/13/24 10:00 12/04/24 09:28 40 MG Morphine Sulfate 2 mg Q4HPRN PRN IV 11/12/24 16:45 12/04/24 10:14 2 MG Vancomycin HCl 300 ml @ 200 mls/hr Q12H IV 11/13/24 15:00 UNV Dextrose 50 ml UD IV 11/15/24 12:00 Hydralazine HCl 10 mg Q6HP PRN IV 11/16/24 15:45 12/01/24 15:50 10 MG Fat Emulsion Intravenous 200 ml/Sodium Chloride 80 meq/ Sodium Acetate 40 meq/Potassium Chloride 40 meq/ Potassium Phosphate 22 meq/ Calcium Gluconate 2.3 meq/Magnesium Sulfate 8 meq/ Multivitamins 10 ml/Chromium/ Copper/Manganese/ Zinc 1 ml/Amino Acids/Dextrose 1,582.9462 ml @ 66 mls/hr Q24H IV 11/18/24 22:00 11/19/24 21:59 Cancel Sodium Chloride 10 ml QSHIFT@10,22 IV 11/25/24 22:00 12/04/24 09:28 10 ML Linezolid 300 ml @ 150 mls/hr Q12HR IV 11/25/24 22:00 12/04/24 08:51 150 MLS/HR Potassium Chloride 100 ml @ 50 mls/hr Q2H IV 11/27/24 11:30 11/27/24 15:29 UNV Albumin Human 50 ml @ 100 mls/hr Q8H IV 11/29/24 07:45 Cancel Lorazepam 0.5 mg Q6HP PRN IV 11/29/24 09:00 12/03/24 21:22 0.5 MG Micafungin Sodium 100 mg/Sodium Chloride 100 ml @ 100 mls/hr DAILY IV 12/01/24 10:00 12/04/24 07:37 100 MLS/HR Enoxaparin Sodium 140 mg Q12HR SC 12/02/24 10:00 12/04/24 10:25 140 MG Ipratropium [place] 0.5 mg Q6HR NEB 12/02/24 09:00 12/04/24 06:40 0.5 MG Levalbuterol HCl 0.625 mg Q6HR NEB 12/02/24 09:00 12/04/24 06:41 0.625 MG Cefepime HCl 50 ml @ 12.5 mls/hr Q8H IV 12/03/24 18:00 12/04/24 10:56 12.5 MLS/HR Acetaminophen/ Hydrocodone Bitart 1 tab Q4HPRN PRN PO 12/03/24 10:00 12/03/24 15:03 1 TAB Fat Emulsion Intravenous 200 ml/Sodium Chloride 160 meq/ Potassium Acetate 20 meq/Potassium Phosphate 30 meq/ Calcium Gluconate 6 meq/Magnesium Sulfate 24 meq/ Multivitamins 10 ml/Chromium/ Copper/Manganese/ Zinc 1 ml/Amino Acids/Dextrose 1,886.7214 ml @ 78 mls/hr [id number] IV 12/03/24 22:00 12/03/24 22:00 Cancel Carvedilol 25 mg Q12HR PO 12/04/24 22:00 laboratory and microbiology Laboratory Tests 12/04/24 04:43 12/03/24 04:58 Test 12/04/24 04:43 Range/Units Serum Glucose 105 74-106 mg/dL Assessment/Plan Impression Acute hypoxemic respiratory failure Nonocclusive DVT Bowel perforation Atelectasis Patient seen and examined in [facility] Events Low oxygen requirements On 2 liters nasal cannula No distress GIOVANNY drains in place s/p ex lap Labs and imaging reviewed Management Supplemental oxygen Titrate to maintain sats 90% or above Incentive spirometry Continue antibiotics F/u cultures Bronchodilators Recommend diuresis Monitor renal function Monitor electrolytes Supplement as needed Pain control Avoid oversedation F/u general surgery DVT prophylaxis Critical care time 35 minutes Dietary Evaluation Review Comments: To meet at least 75% ofpt's needs, recommend TPN kcal to be increased to 1500-2000kcal range and protein to be increased to 80-90g/d. Expected Outcomes/Goals: Pt will experience a gradual wt loss at this kcal level, yet, the appropriated nutrition support of protein and kcal can enhance pt's GI perforation healing process, and help him regain normal GI functionality Plan discussed with: Patient DALJIT BATRES MD Dec 04, 2024 12:44
--- NOTE | 2024-12-04 13:52 | DVHPN2 ---
Progress Note Date Seen: Dec 04, 2024 Medical Necessity Reason Pt with a Central, PICC or Fol: No Objective vital signs Vital Sign Date Time Temp Pulse Resp B/P (MAP) Pulse Ox O2 Delivery O2 Flow Rate FiO2 12/04/24 12:58 109 20 100 12/04/24 12:00 Nasal Cannula* 2 28 12/04/24 10:44 143/75 12/04/24 04:00 97.9 97.9 Total Intake and Output 12/03/24 12/03/24 12/04/24 15:00 23:00 07:00 Intake Total 684 ml 950 ml 780 ml Output Total 2015 ml 840 ml Balance 684 ml -1065 ml -60 ml medications Current Medications Medications Dose Ordered Sig/Edis Route Start Time Stop Time Status Last Admin Dose Admin Acetaminophen 650 mg Q6HPRN PRN PO 11/11/24 23:45 12/03/24 09:22 650 MG Piperacillin Sod/ Tazobactam Sod 100 ml @ 25 mls/hr Q8HR IV 11/12/24 06:00 UNV Ondansetron HCl 4 mg Q4HPRN PRN IV 11/12/24 07:45 11/25/24 06:32 4 MG Pantoprazole Sodium 40 mg DAILY IV 11/13/24 10:00 12/04/24 09:28 40 MG Morphine Sulfate 2 mg Q4HPRN PRN IV 11/12/24 16:45 12/04/24 10:14 2 MG Vancomycin HCl 300 ml @ 200 mls/hr Q12H IV 11/13/24 15:00 UNV Dextrose 50 ml UD IV 11/15/24 12:00 Hydralazine HCl 10 mg Q6HP PRN IV 11/16/24 15:45 12/01/24 15:50 10 MG Fat Emulsion Intravenous 200 ml/Sodium Chloride 80 meq/ Sodium Acetate 40 meq/Potassium Chloride 40 meq/ Potassium Phosphate 22 meq/ Calcium Gluconate 2.3 meq/Magnesium Sulfate 8 meq/ Multivitamins 10 ml/Chromium/ Copper/Manganese/ Zinc 1 ml/Amino Acids/Dextrose 1,582.9462 ml @ 66 mls/hr Q24H IV 11/18/24 22:00 11/19/24 21:59 Cancel Sodium Chloride 10 ml QSHIFT@10,22 IV 11/25/24 22:00 12/04/24 09:28 10 ML Linezolid 300 ml @ 150 mls/hr Q12HR IV 11/25/24 22:00 12/04/24 08:51 150 MLS/HR Potassium Chloride 100 ml @ 50 mls/hr Q2H IV 11/27/24 11:30 11/27/24 15:29 UNV Albumin Human 50 ml @ 100 mls/hr Q8H IV 11/29/24 07:45 Cancel Lorazepam 0.5 mg Q6HP PRN IV 11/29/24 09:00 12/03/24 21:22 0.5 MG Micafungin Sodium 100 mg/Sodium Chloride 100 ml @ 100 mls/hr DAILY IV 12/01/24 10:00 12/04/24 07:37 100 MLS/HR Enoxaparin Sodium 140 mg Q12HR SC 12/02/24 10:00 12/04/24 10:25 140 MG Ipratropium [place] 0.5 mg Q6HR NEB 12/02/24 09:00 12/04/24 12:47 0.5 MG Levalbuterol HCl 0.625 mg Q6HR NEB 12/02/24 09:00 12/04/24 12:47 0.625 MG Cefepime HCl 50 ml @ 12.5 mls/hr Q8H IV 12/03/24 18:00 12/04/24 10:56 12.5 MLS/HR Acetaminophen/ Hydrocodone Bitart 1 tab Q4HPRN PRN PO 12/03/24 10:00 12/03/24 15:03 1 TAB Fat Emulsion Intravenous 200 ml/Sodium Chloride 160 meq/ Potassium Acetate 20 meq/Potassium Phosphate 30 meq/ Calcium Gluconate 6 meq/Magnesium Sulfate 24 meq/ Multivitamins 10 ml/Chromium/ Copper/Manganese/ Zinc 1 ml/Amino Acids/Dextrose 1,886.7214 ml @ 78 mls/hr [id number] IV 12/03/24 22:00 12/03/24 22:00 Cancel Carvedilol 25 mg Q12HR PO 12/04/24 22:00 laboratory and microbiology Laboratory Tests 12/04/24 04:43 12/03/24 04:58 Test 12/04/24 04:43 Range/Units Serum Glucose 105 74-106 mg/dL Problem List/Assessment/Plan Problem List/Assessment/Plan 11/13/24feels well, abdomen non tender, ;leukocytosis, continue, as is, repeat CT scan in 48 hours 11/15/24 UNDERWENT PERCUTANEOUS DRAINAGE OF PERICOLONIC ABSCESS, ABDOMEN NON DISTENDED, NON TENDER. WILL FOLLOW 11/16/24 feels well, hungry, abdomen non tyender, derainage purulent, will irrigate, allow po intake 11/19/24 NO ABDOMINAL PAIN, NO NAUSEA, ABDOMEN NON TENDER, PICC LINE WAS REMOVED ,WILL CHECK CBC IN AM 11/20/24 await CBC tomorrow to decide on next step, abdomen non ternder but no BM, he feels "backed Up" will get gastrografin bowel x ray. 11/21/24 patient had a few bowel movements but feels worse, although his abdomen is not tender, his WBC is climbing and his CT scan looks much worse. I gave the patient the option to go back to NPO and TPN vs an operation with a colostomy, he choses to be operated on and get a colostomy as this "may be a faster way to get better". Operation, risks and complications explained in detail/ 11/27/24 feels better, no flatus in stoma bag, stoma viable,wound with some infection at inferior aspect of infraumbilical extent, abdomen appropriately tender, will allow ice chips and sips of water, must be out iof bed q 4 hours 11/29/24 ABDOMEN NON DISTENDED, APPROPRIATELY TENDER ,STOMA VIABLE WITH LIQUID OUTPUT BUT ONLY SMALL AMOUNT OF FLATUS. PATIENT IS BELCHING , FLUID [id number] IN THE RIGHT PELVIS IS NOT ADEQUATELY DRAINED BY THE INDWELLING DRAIN, WILL REQUEST RADIOLOGIST TO ATTEMPT MORE ADEQUATE DRAINAGE UNDER CT GUIDANCE. WILL INCREASE iv FLUIDS DUE TO TACHYCARDIA AND EVIDENCE OF BOWEL DISTENSION 11/30/24 appears tachypneic, has tachycardia. abdomen non distended, stoma viable and with liquid output but without flatus.wound ok, will ask pulm. to see, to r/o need for bronchoscopy and r/o PE. the radiologist did not feel a CT guided aspiration of pelvic fluid was feasible, will have nurses irrigate drain. will get inf. ds. consult 12/01/24, IMPROVED, DC NGT START PO CLEAR LIQUIDS 12/02/24 BP and Heart Rate controlled by Beta blockade, abdomen OK,stoma viable and functioning, advance diet and activity 12/03/24 feels ok abdomen soft, non distended, wound with small skin dehiscence at inferior aspect, stoma functioning, evacuating distal colon per rectum(expected) tomorrow can be downgraded 12/04/24 doing well, afebrile, normotensive, HR increased after the Coreg dosage was halved, BP is ok, abdomen non distended, non tender, stoma viable and functioning. stable for transfer to a med-surg bed. Plan discussed with: Patient Dietary Evaluation Review Comments: To meet at least 75% ofpt's needs, recommend TPN kcal to be increased to 1500-2000kcal range and protein to be increased to 80-90g/d. Expected Outcomes/Goals: Pt will experience a gradual wt loss at this kcal level, yet, the appropriated nutrition support of protein and kcal can enhance pt's GI perforation healing process, and help him regain normal GI functionality DANA CHOW MD Dec 04, 2024 13:52
--- NOTE | 2024-12-04 14:54 | DVHPN2 ---
Progress Note Date Seen: Dec 04, 2024 Resident Creating Document: JULIA MARES Medical Necessity Reason Pt with a Central, PICC or Fol: No Subjective Review of Systems Patient is seen today at bedside No acute complaint WBC trending down H&H stable Had low grade fever last night Tolerating well diet well On [place] O2 1 L/min, CT angio of the chest negative for pulmonary embolism Patient was seen by surgery, Objective vital signs Vital Sign Date Time Temp Pulse Resp B/P (MAP) Pulse Ox O2 Delivery O2 Flow Rate FiO2 12/04/24 14:00 108 12/04/24 14:00 21 95 Nasal Cannula* 2 28 12/04/24 12:00 99.5 150/79 (102) 99.5 Total Intake and Output 12/03/24 12/03/24 12/04/24 15:00 23:00 07:00 Intake Total 684 ml 950 ml 780 ml Output Total 2015 ml 840 ml Balance 684 ml -1065 ml -60 ml medications Current Medications Medications Dose Ordered Sig/Edis Route Start Time Stop Time Status Last Admin Dose Admin Acetaminophen 650 mg Q6HPRN PRN PO 11/11/24 23:45 12/03/24 09:22 650 MG Piperacillin Sod/ Tazobactam Sod 100 ml @ 25 mls/hr Q8HR IV 11/12/24 06:00 UNV Ondansetron HCl 4 mg Q4HPRN PRN IV 11/12/24 07:45 11/25/24 06:32 4 MG Pantoprazole Sodium 40 mg DAILY IV 11/13/24 10:00 12/04/24 09:28 40 MG Morphine Sulfate 2 mg Q4HPRN PRN IV 11/12/24 16:45 12/04/24 10:14 2 MG Vancomycin HCl 300 ml @ 200 mls/hr Q12H IV 11/13/24 15:00 UNV Dextrose 50 ml UD IV 11/15/24 12:00 Hydralazine HCl 10 mg Q6HP PRN IV 11/16/24 15:45 12/01/24 15:50 10 MG Fat Emulsion Intravenous 200 ml/Sodium Chloride 80 meq/ Sodium Acetate 40 meq/Potassium Chloride 40 meq/ Potassium Phosphate 22 meq/ Calcium Gluconate 2.3 meq/Magnesium Sulfate 8 meq/ Multivitamins 10 ml/Chromium/ Copper/Manganese/ Zinc 1 ml/Amino Acids/Dextrose 1,582.9462 ml @ 66 mls/hr Q24H IV 11/18/24 22:00 11/19/24 21:59 Cancel Sodium Chloride 10 ml QSHIFT@10,22 IV 11/25/24 22:00 12/04/24 09:28 10 ML Linezolid 300 ml @ 150 mls/hr Q12HR IV 11/25/24 22:00 12/04/24 08:51 150 MLS/HR Potassium Chloride 100 ml @ 50 mls/hr Q2H IV 11/27/24 11:30 11/27/24 15:29 UNV Albumin Human 50 ml @ 100 mls/hr Q8H IV 11/29/24 07:45 Cancel Lorazepam 0.5 mg Q6HP PRN IV 11/29/24 09:00 12/03/24 21:22 0.5 MG Micafungin Sodium 100 mg/Sodium Chloride 100 ml @ 100 mls/hr DAILY IV 12/01/24 10:00 12/04/24 07:37 100 MLS/HR Enoxaparin Sodium 140 mg Q12HR SC 12/02/24 10:00 12/04/24 10:25 140 MG Ipratropium [place] 0.5 mg Q6HR NEB 12/02/24 09:00 12/04/24 12:47 0.5 MG Levalbuterol HCl 0.625 mg Q6HR NEB 12/02/24 09:00 12/04/24 12:47 0.625 MG Cefepime HCl 50 ml @ 12.5 mls/hr Q8H IV 12/03/24 18:00 12/04/24 10:56 12.5 MLS/HR Acetaminophen/ Hydrocodone Bitart 1 tab Q4HPRN PRN PO 12/03/24 10:00 12/03/24 15:03 1 TAB Fat Emulsion Intravenous 200 ml/Sodium Chloride 160 meq/ Potassium Acetate 20 meq/Potassium Phosphate 30 meq/ Calcium Gluconate 6 meq/Magnesium Sulfate 24 meq/ Multivitamins 10 ml/Chromium/ Copper/Manganese/ Zinc 1 ml/Amino Acids/Dextrose 1,886.7214 ml @ 78 mls/hr [id number] IV 12/03/24 22:00 12/03/24 22:00 Cancel Carvedilol 25 mg Q12HR PO 12/04/24 22:00 laboratory and microbiology Laboratory Tests 12/04/24 04:43 12/03/24 04:58 Test 12/04/24 04:43 Range/Units Serum Glucose 105 74-106 mg/dL Microbiology Date/Time Source Procedure Growth Status 12/01/24 17:30 Blood Blood Culture - Preliminary NO GROWTH AFTER 48 HOURS OF INCUBATION. Resulted 11/22/24 10:15 Abdomen Gram Stain - Final Complete 11/22/24 10:15 Abdomen Anaerobic Culture - Final Complete 11/22/24 10:15 Aerobic Culture - Final Escherichia coli Enterococcus faecium - VRE Complete 11/18/24 10:20 Voided Urine Urine Culture - Final Complete 11/15/24 13:15 Aspirate Gram Stain - Final Complete 11/15/24 13:15 Body Fluid Culture - Final Escherichia coli Complete Problem List/Assessment/Plan Problem List/Assessment/Plan Assessment and plan Problems(with codes): (1) perforated Diverticulitis large intestine (2) Abnormal finding on GI tract imaging (3) Abscess of sigmoid colon due to diverticulitis (4) Leukocytosis Events No acute complaint H&H stable WBC trending down Had low grade fever last night Tolerating well diet well On [place] O2 1 L/min, CT angio of the chest negative for pulmonary embolism Patient was seen by surgery, Prognosis Plan Continue regular diet as patient tolerating well Continue broad spectrum IV antibiotics Incentive spirometry Surgical input appreciated On DVT prophylaxis On pantoprazole IV 40 mg daily Physical therapy as tolerate Plan discussed with Dr. Emilee Sharma , nursing staff, Total time spent on patient evaluation, chart review, assessment and plan, discussion discussion >35 minutes Plan discussed with: Patient, Other (RN) Dietary Evaluation Review Comments: To meet at least 75% ofpt's needs, recommend TPN kcal to be increased to 1500-2000kcal range and protein to be increased to 80-90g/d. Expected Outcomes/Goals: Pt will experience a gradual wt loss at this kcal level, yet, the appropriated nutrition support of protein and kcal can enhance pt's GI perforation healing process, and help him regain normal GI functionality JULIA MARES RESIDENT Dec 04, 2024 14:54
[2024-12-04] MEDS: CARVEDILOL 12.5 MG TAB PO SCH (22:20)
[2024-12-05] VITALS (47 sets, daily range): BP systolic 111–154; BP diastolic 61–78; PULSE 97–124; RESP 15–70; TEMP 98.1–100.4; O2SAT 87–99
[2024-12-05] MEDS: TEMAZEPAM 15 MG CAP PO ONE (02:23)
[2024-12-05 05:27] LABS: Hematocrit 24.8 % (41.0-53.0); Hemoglobin 7.9 g/dL (13.5-17.5); Mean Corpuscular Hemoglobin 26.7 pg (28.0-32.0); Mean Corpuscular Volume 83.5 fL (80.0-100.0); Nucleated Red Blood Cells % 0.1 %
[2024-12-05 05:40] LABS: Anion Gap 6 (5-15); Carbon Dioxide 28 mmol/L (20-31); Potassium 4.1 mmol/L (3.5-5.1)
[2024-12-05 05:41] LABS: Calcium 7.5 mg/dL (8.7-10.4); Chloride 98 mmol/L (98-107); Sodium 132 mmol/L (136-145)
[2024-12-05 05:46] LABS: BUN/Creatinine Ratio 30.2 (10.0-20.0); Blood Urea Nitrogen 13 mg/dL (9-23)
[2024-12-05 05:47] LABS: Glucose 109 mg/dL (74-106)
--- NOTE | 2024-12-05 09:17 | DVHPN2 ---
Progress Note - Dictate Date Seen: Dec 05, 2024 Medical Necessity Reason Pt with a Central, PICC or Fol: No Subjective candace removed, he developed wound gaping/ dehiscence vital signs Vital Sign Date Time Temp Pulse Resp B/P (MAP) Pulse Ox O2 Delivery O2 Flow Rate FiO2 12/05/24 06:40 105 18 96 12/05/24 06:35 Nasal Cannula* 2 28 12/04/24 23:20 144/78 12/04/24 22:30 98.6 98.6 Total Intake and Output 12/04/24 12/04/24 12/05/24 15:00 23:00 07:00 Intake Total 450 ml 950 ml 770 ml Output Total 1425 ml 550 ml Balance 450 ml -475 ml 220 ml medications Current Medications Medications Dose Ordered Sig/Edis Route Start Time Stop Time Status Last Admin Dose Admin Acetaminophen 650 mg Q6HPRN PRN PO 11/11/24 23:45 12/03/24 09:22 650 MG Piperacillin Sod/ Tazobactam Sod 100 ml @ 25 mls/hr Q8HR IV 11/12/24 06:00 UNV Ondansetron HCl 4 mg Q4HPRN PRN IV 11/12/24 07:45 11/25/24 06:32 4 MG Pantoprazole Sodium 40 mg DAILY IV 11/13/24 10:00 12/04/24 09:28 40 MG Morphine Sulfate 2 mg Q4HPRN PRN IV 11/12/24 16:45 12/04/24 20:17 2 MG Vancomycin HCl 300 ml @ 200 mls/hr Q12H IV 11/13/24 15:00 UNV Dextrose 50 ml UD IV 11/15/24 12:00 Hydralazine HCl 10 mg Q6HP PRN IV 11/16/24 15:45 12/04/24 16:06 10 MG Fat Emulsion Intravenous 200 ml/Sodium Chloride 80 meq/ Sodium Acetate 40 meq/Potassium Chloride 40 meq/ Potassium Phosphate 22 meq/ Calcium Gluconate 2.3 meq/Magnesium Sulfate 8 meq/ Multivitamins 10 ml/Chromium/ Copper/Manganese/ Zinc 1 ml/Amino Acids/Dextrose 1,582.9462 ml @ 66 mls/hr Q24H IV 11/18/24 22:00 11/19/24 21:59 Cancel Sodium Chloride 10 ml QSHIFT@10,22 IV 11/25/24 22:00 12/04/24 22:17 10 ML Linezolid 300 ml @ 150 mls/hr Q12HR IV 11/25/24 22:00 12/04/24 22:23 150 MLS/HR Potassium Chloride 100 ml @ 50 mls/hr Q2H IV 11/27/24 11:30 11/27/24 15:29 UNV Albumin Human 50 ml @ 100 mls/hr Q8H IV 11/29/24 07:45 Cancel Lorazepam 0.5 mg Q6HP PRN IV 11/29/24 09:00 12/04/24 22:22 0.5 MG Micafungin Sodium 100 mg/Sodium Chloride 100 ml @ 100 mls/hr DAILY IV 12/01/24 10:00 12/04/24 07:37 100 MLS/HR Enoxaparin Sodium 140 mg Q12HR SC 12/02/24 10:00 12/04/24 22:18 140 MG Ipratropium [place] 0.5 mg Q6HR NEB 12/02/24 09:00 12/05/24 06:35 0.5 MG Levalbuterol HCl 0.625 mg Q6HR NEB 12/02/24 09:00 12/05/24 06:35 0.625 MG Cefepime HCl 50 ml @ 12.5 mls/hr Q8H IV 12/03/24 18:00 12/05/24 02:22 12.5 MLS/HR Acetaminophen/ Hydrocodone Bitart 1 tab Q4HPRN PRN PO 12/03/24 10:00 12/03/24 15:03 1 TAB Fat Emulsion Intravenous 200 ml/Sodium Chloride 160 meq/ Potassium Acetate 20 meq/Potassium Phosphate 30 meq/ Calcium Gluconate 6 meq/Magnesium Sulfate 24 meq/ Multivitamins 10 ml/Chromium/ Copper/Manganese/ Zinc 1 ml/Amino Acids/Dextrose 1,886.7214 ml @ 78 mls/hr [id number] IV 12/03/24 22:00 12/03/24 22:00 Cancel Carvedilol 25 mg Q12HR PO 12/04/24 22:00 12/04/24 22:20 25 MG objective General Appearance: Alert, Oriented X3, Cooperative, No acute distress HEENT: Atraumatic, PERRLA, EOMI, Mucous membrane moist/pink Respiratory: Clear to auscultation, Normal air movement Cardiovascular: Regular rate, Normal S1, Normal S2, No murmurs, no chest wall tenderness Abdominal: Normal bowel sounds, Soft, No tenderness, No hepatospenomegaly, No masses Extremities: No clubbing, No cyanosis, No edema, Normal pulses, No tenderness/swelling Skin: No rashes, No breakdown, No significant lesion Neuro: Normal gait, Normal speech, Strength at 5/5 X4 ext, Normal tone, Sensation intact, Cranial nerves 3-12 NL, Reflexes 2+ Psych/Mental Status: Mental status NL, Mood NL Testicular exam: Absent swelling, tenderness and redness bilaterally laboratory and microbiology Laboratory Tests 12/05/24 04:46 Test 12/05/24 04:46 Range/Units Serum Glucose 109 H 74-106 mg/dL Assessment/Plan Patient is a 44-year-old Male admitted with wound dehiscence Sepsis resolving Diverticular abscess 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 he has a wound vac too. GIOVANNY drain shows not much drainage, nontender abdomen He has had prolonged hospital stay, currently in [facility]. s/p colon resection on 11/22 s/p colostomy with output. had diverticular abscess with OR cx grew VRE cont Linezolid, Cefepime and Micafungin; continue . WBC is slowly tapering down. repeat blood cx if he spikes fever again >100.1, he has been afebrile. Will repeat CT abdomen and pelvis with contrast if spikes again. reviewed OR notes Review of cultures: 11/11, Blood culture showed no growth 11/11, Urine culture showed no growth 11/12, MRSA screening came back negative 11/13, Urine culture showed no growth 11/15, Body fluid culture showed E. coli 11/18, Blood culture showed no growth 11/18, urine culture showed no growth 11/22, OR culture showed E. coli and Enterococcus faecium 11/28, Blood culture showed no growth 12/01, Blood culture preliminary showed no growth Antibiotic status: Cefepime IV [Started on 12/03 - Ongoing] Micafungin IV [Started on 12/01 - Ongoing] Linezolid IV [Started on 11/25 - Ongoing] Meropenem IV [Given on 11/29 - Ongoing] Flagyl IV Started on 11/22 - 11/29] Ceftriaxone IV [Started on 11/25 - 11/29] Prognosis guarded plan discussed with team Thank you for consult Dietary Evaluation Review Comments: To meet at least 75% ofpt's needs, recommend TPN kcal to be increased to 1500-2000kcal range and protein to be increased to 80-90g/d. Expected Outcomes/Goals: Pt will experience a gradual wt loss at this kcal level, yet, the appropriated nutrition support of protein and kcal can enhance pt's GI perforation healing process, and help him regain normal GI functionality Plan discussed with: Patient MAKENNA STONER MD Dec 05, 2024 09:17
--- NOTE | 2024-12-05 09:59 | DVHPN2 ---
Subjective Patient denies any symptoms at this time. 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 General Appearance: Alert, Oriented X3, Cooperative, mild distress HEENT: Atraumatic, PERRLA Lungs: Clear to auscultation, Normal air movement, Other (Nasal cannula at 4 L/min) Cardiovascular: Normal S1, Normal S2, Other (Sinus tachycardia) Abdomen: Other (Absent bowel sounds. No output from colostomy. GOIVANNY with minimal serosanguineous drainage) Genitourinary: No Apparent Abnormalities (Hernandez catheter) Musculoskeletal: Normal sensory function, Normal motor function Neuro: Normal gait, Normal speech, Sensation intact, Cranial nerves 3-12 NL Skin: Dry, Intact Psych/Mental Status: Mental status NL, Mood NL Medications Current Medications Medications Dose Ordered Sig/Edis Route Start Time Stop Time Status Last Admin Dose Admin Acetaminophen 650 mg Q6HPRN PRN PO 11/11/24 23:45 12/03/24 09:22 650 MG Piperacillin Sod/ Tazobactam Sod 100 ml @ 25 mls/hr Q8HR IV 11/12/24 06:00 UNV Ondansetron HCl 4 mg Q4HPRN PRN IV 11/12/24 07:45 11/25/24 06:32 4 MG Pantoprazole Sodium 40 mg DAILY IV 11/13/24 10:00 12/04/24 09:28 40 MG Morphine Sulfate 2 mg Q4HPRN PRN IV 11/12/24 16:45 12/04/24 20:17 2 MG Vancomycin HCl 300 ml @ 200 mls/hr Q12H IV 11/13/24 15:00 UNV Dextrose 50 ml UD IV 11/15/24 12:00 Hydralazine HCl 10 mg Q6HP PRN IV 11/16/24 15:45 12/04/24 16:06 10 MG Fat Emulsion Intravenous 200 ml/Sodium Chloride 80 meq/ Sodium Acetate 40 meq/Potassium Chloride 40 meq/ Potassium Phosphate 22 meq/ Calcium Gluconate 2.3 meq/Magnesium Sulfate 8 meq/ Multivitamins 10 ml/Chromium/ Copper/Manganese/ Zinc 1 ml/Amino Acids/Dextrose 1,582.9462 ml @ 66 mls/hr Q24H IV 11/18/24 22:00 11/19/24 21:59 Cancel Sodium Chloride 10 ml QSHIFT@10,22 IV 11/25/24 22:00 12/04/24 22:17 10 ML Linezolid 300 ml @ 150 mls/hr Q12HR IV 11/25/24 22:00 12/04/24 22:23 150 MLS/HR Potassium Chloride 100 ml @ 50 mls/hr Q2H IV 11/27/24 11:30 11/27/24 15:29 UNV Albumin Human 50 ml @ 100 mls/hr Q8H IV 11/29/24 07:45 Cancel Lorazepam 0.5 mg Q6HP PRN IV 11/29/24 09:00 12/04/24 22:22 0.5 MG Micafungin Sodium 100 mg/Sodium Chloride 100 ml @ 100 mls/hr DAILY IV 12/01/24 10:00 12/04/24 07:37 100 MLS/HR Enoxaparin Sodium 140 mg Q12HR SC 12/02/24 10:00 12/04/24 22:18 140 MG Ipratropium [place] 0.5 mg Q6HR NEB 12/02/24 09:00 12/05/24 06:35 0.5 MG Levalbuterol HCl 0.625 mg Q6HR NEB 12/02/24 09:00 12/05/24 06:35 0.625 MG Cefepime HCl 50 ml @ 12.5 mls/hr Q8H IV 12/03/24 18:00 12/05/24 02:22 12.5 MLS/HR Acetaminophen/ Hydrocodone Bitart 1 tab Q4HPRN PRN PO 12/03/24 10:00 12/03/24 15:03 1 TAB Fat Emulsion Intravenous 200 ml/Sodium Chloride 160 meq/ Potassium Acetate 20 meq/Potassium Phosphate 30 meq/ Calcium Gluconate 6 meq/Magnesium Sulfate 24 meq/ Multivitamins 10 ml/Chromium/ Copper/Manganese/ Zinc 1 ml/Amino Acids/Dextrose 1,886.7214 ml @ 78 mls/hr [id number] IV 12/03/24 22:00 12/03/24 22:00 Cancel Carvedilol 25 mg Q12HR PO 12/04/24 22:00 12/04/24 22:20 25 MG Laboratory Results Laboratory Tests 12/05/24 04:46 Chemistry Test 12/05/24 04:46 Calcium Level 7.5 mg/dL (8.7-10.4) L Urinalysis Test 11/11/24 20:50 Urine Color Yellow (Yellow) Urine Clarity Clear (Clear) Urine pH 6.0 (5.0-9.0) Urine Specific [place] 1.021 (1.001-1.035) Urine Protein 1+ (Negative) H Urine Ketones Negative (Negative) Urine Blood 2+ /uL (Negative) H Urine Nitrite Negative (Negative) Urine Bilirubin Negative (Negative) Urine Urobilinogen 3 mg/dL (Negative) H Urine Leukocyte Esterase Negative /uL (Negative) Urine RBC 1 /hpf (0 - 3) Urine Microscopic WBC 6 /HPF (0-3) H Urine Squamous Epithelial Cells None seen /hpf (<5) Urine Bacteria None seen /hpf (None Seen) Urine Mucus Few (None Seen) Urine Glucose 1+ mg/dL (Normal) H Microbiology Microbiology Date/Time Source Procedure Growth Status 12/01/24 17:30 Blood Blood Culture - Preliminary NO GROWTH AFTER 72 HOURS OF INCUBATION. Resulted 11/22/24 10:15 Abdomen Gram Stain - Final Complete 11/22/24 10:15 Abdomen Anaerobic Culture - Final Complete 11/22/24 10:15 Aerobic Culture - Final Escherichia coli Enterococcus faecium - VRE Complete 11/18/24 10:20 Voided Urine Urine Culture - Final Complete 11/15/24 13:15 Aspirate Gram Stain - Final Complete 11/15/24 13:15 Body Fluid Culture - Final Escherichia coli Complete Labs and/or images reviewed: Labs reviewed by me, Image(s) reviewed by me Assessment/Plan Assessment/Plan Impression: -severe sepsis secondary to perforated diverticulitis -obesity -hypokalemia -hyponatremia -right upper extremity DVT, repeat ultrasound reports resolution -Atelectasis Plan: Events: Mild rectal bleeding. Overall clinical improvement. -IV antibiotics: Continue Meropenem, Zyvox, micafungin -continue TPN. -PPI -pain management -out of bed as tolerated, physical therapy -incentive spirometer -Transfer to Telemetry -repeat labs in a.m. -Repeat CT scan in am Total time spent with patient discussing and formulating plan of care: 35 minutes. This medical document was created using an electronic medical record system with [employer] dictation system. Although this document has been carefully reviewed, there may still be some phonetic and typographical errors. These areas are purely typographical due to imperfections of the software programs, and do not reflect any compromise in the patient's medical care. Plan discussed with: Patient, Other (RN) My Orders Orders - SANDRA GOODMAN NP Procedure Category Date Status Time Carvedilol Tablet PHA 12/04/24 In Process (Coreg Tablet) 22:00 Basic Metabolic Panel LAB 12/06/24 Verified 08:00 Basic Metabolic Panel LAB 12/07/24 Verified 08:00 Complete Blood Count LAB 12/06/24 Verified 05:00 Complete Blood Count LAB 12/07/24 Verified 05:00 Transfer Orders XFER 12/05/24 Transmitted 09:53 Date of Service: Dec 05, 2024 Billing Provider: SANDRA GOODMAN NP Common Visit Codes: [id number] INP/OBS CARE(HIGH) SANDRA GOODMAN NP Dec 05, 2024 09:59
--- NOTE | 2024-12-05 12:17 | DVHPN2 ---
Progress Note Date Seen: Dec 05, 2024 Resident Creating Document: JULIA MARES RESIDENT Medical Necessity Reason Pt with a Central, PICC or Fol: No Subjective Review of Systems Patient is seen today at bedside No acute complaint Leukocytosis trending down Had low-grade fever yesterday Passing gases to colostomy tube Tolerating po diet well Objective vital signs Vital Sign Date Time Temp Pulse Resp B/P (MAP) Pulse Ox O2 Delivery O2 Flow Rate FiO2 12/05/24 12:11 99 18 96 12/05/24 12:04 Nasal Cannula 2.0 12/05/24 12:04 28 12/05/24 11:19 112/52 12/05/24 08:00 98.1 98.1 Total Intake and Output 12/04/24 12/04/24 12/05/24 15:00 23:00 07:00 Intake Total 450 ml 950 ml 770 ml Output Total 1425 ml 550 ml Balance 450 ml -475 ml 220 ml medications Current Medications Medications Dose Ordered Sig/Edis Route Start Time Stop Time Status Last Admin Dose Admin Acetaminophen 650 mg Q6HPRN PRN PO 11/11/24 23:45 12/03/24 09:22 650 MG Piperacillin Sod/ Tazobactam Sod 100 ml @ 25 mls/hr Q8HR IV 11/12/24 06:00 UNV Ondansetron HCl 4 mg Q4HPRN PRN IV 11/12/24 07:45 11/25/24 06:32 4 MG Pantoprazole Sodium 40 mg DAILY IV 11/13/24 10:00 12/05/24 10:16 40 MG Morphine Sulfate 2 mg Q4HPRN PRN IV 11/12/24 16:45 12/04/24 20:17 2 MG Vancomycin HCl 300 ml @ 200 mls/hr Q12H IV 11/13/24 15:00 UNV Dextrose 50 ml UD IV 11/15/24 12:00 Hydralazine HCl 10 mg Q6HP PRN IV 11/16/24 15:45 12/04/24 16:06 10 MG Fat Emulsion Intravenous 200 ml/Sodium Chloride 80 meq/ Sodium Acetate 40 meq/Potassium Chloride 40 meq/ Potassium Phosphate 22 meq/ Calcium Gluconate 2.3 meq/Magnesium Sulfate 8 meq/ Multivitamins 10 ml/Chromium/ Copper/Manganese/ Zinc 1 ml/Amino Acids/Dextrose 1,582.9462 ml @ 66 mls/hr Q24H IV 11/18/24 22:00 11/19/24 21:59 Cancel Sodium Chloride 10 ml QSHIFT@10,22 IV 11/25/24 22:00 12/05/24 10:19 10 ML Linezolid 300 ml @ 150 mls/hr Q12HR IV 11/25/24 22:00 12/05/24 11:42 150 MLS/HR Potassium Chloride 100 ml @ 50 mls/hr Q2H IV 11/27/24 11:30 11/27/24 15:29 UNV Albumin Human 50 ml @ 100 mls/hr Q8H IV 11/29/24 07:45 Cancel Lorazepam 0.5 mg Q6HP PRN IV 11/29/24 09:00 12/04/24 22:22 0.5 MG Micafungin Sodium 100 mg/Sodium Chloride 100 ml @ 100 mls/hr DAILY IV 12/01/24 10:00 12/05/24 10:16 100 MLS/HR Enoxaparin Sodium 140 mg Q12HR SC 12/02/24 10:00 12/05/24 10:22 140 MG Ipratropium [place] 0.5 mg Q6HR NEB 12/02/24 09:00 12/05/24 12:03 0.5 MG Levalbuterol HCl 0.625 mg Q6HR NEB 12/02/24 09:00 12/05/24 12:03 0.625 MG Cefepime HCl 50 ml @ 12.5 mls/hr Q8H IV 12/03/24 18:00 12/05/24 02:22 12.5 MLS/HR Acetaminophen/ Hydrocodone Bitart 1 tab Q4HPRN PRN PO 12/03/24 10:00 12/03/24 15:03 1 TAB Fat Emulsion Intravenous 200 ml/Sodium Chloride 160 meq/ Potassium Acetate 20 meq/Potassium Phosphate 30 meq/ Calcium Gluconate 6 meq/Magnesium Sulfate 24 meq/ Multivitamins 10 ml/Chromium/ Copper/Manganese/ Zinc 1 ml/Amino Acids/Dextrose 1,886.7214 ml @ 78 mls/hr [id number] IV 12/03/24 22:00 12/03/24 22:00 Cancel Carvedilol 25 mg Q12HR PO 12/04/24 22:00 12/05/24 10:19 25 MG laboratory and microbiology Laboratory Tests 12/05/24 04:46 Test 12/05/24 04:46 Range/Units Serum Glucose 109 H 74-106 mg/dL Microbiology Date/Time Source Procedure Growth Status 12/01/24 17:30 Blood Blood Culture - Preliminary NO GROWTH AFTER 72 HOURS OF INCUBATION. Resulted 11/22/24 10:15 Abdomen Gram Stain - Final Complete 11/22/24 10:15 Abdomen Anaerobic Culture - Final Complete 11/22/24 10:15 Aerobic Culture - Final Escherichia coli Enterococcus faecium - VRE Complete 11/18/24 10:20 Voided Urine Urine Culture - Final Complete 11/15/24 13:15 Aspirate Gram Stain - Final Complete 11/15/24 13:15 Body Fluid Culture - Final Escherichia coli Complete Problem List/Assessment/Plan Problem List/Assessment/Plan Assessment and plan Problems(with codes): (1) perforated Diverticulitis large intestine (2) Abnormal finding on GI tract imaging (3) Abscess of sigmoid colon due to diverticulitis (4) Leukocytosis Events No acute complaint Leukocytosis trending down Had low-grade fever yesterday Passing gases to colostomy tube Tolerating po diet well, Prognosis Plan Possible repeat CT scan of the abdomen and pelvis tomorrow Continue regular diet as patient tolerating well Continue broad spectrum IV antibiotics Incentive spirometry Surgical input appreciated On DVT prophylaxis On pantoprazole IV 40 mg daily Physical therapy as tolerate Plan discussed with Dr. Emilee Sharma , nursing staff, Total time spent on patient evaluation, chart review, assessment and plan, discussion discussion >35 minutes Plan discussed with: Patient, Other (RN ) Dietary Evaluation Review Comments: To meet at least 75% ofpt's needs, recommend TPN kcal to be increased to 1500-2000kcal range and protein to be increased to 80-90g/d. Expected Outcomes/Goals: Pt will experience a gradual wt loss at this kcal level, yet, the appropriated nutrition support of protein and kcal can enhance pt's GI perforation healing process, and help him regain normal GI functionality JULIA MARES RESIDENT Dec 05, 2024 12:17
--- NOTE | 2024-12-05 18:28 | DVHPN2 ---
Progress Note - Dictate Date Seen: Dec 05, 2024 Medical Necessity Reason Pt with a Central, PICC or Fol: No vital signs Vital Sign Date Time Temp Pulse Resp B/P (MAP) Pulse Ox O2 Delivery O2 Flow Rate FiO2 12/05/24 18:19 104 19 111/71 12/05/24 16:09 95 Nasal Cannula* 2 28 12/05/24 16:00 99.0 99.0 Total Intake and Output 12/04/24 12/04/24 12/05/24 14:59 22:59 06:59 Intake Total 450 ml 950 ml 770 ml Output Total 1425 ml 550 ml Balance 450 ml -475 ml 220 ml medications Current Medications Medications Dose Ordered Sig/Edis Route Start Time Stop Time Status Last Admin Dose Admin Acetaminophen 650 mg Q6HPRN PRN PO 11/11/24 23:45 12/03/24 09:22 650 MG Piperacillin Sod/ Tazobactam Sod 100 ml @ 25 mls/hr Q8HR IV 11/12/24 06:00 UNV Ondansetron HCl 4 mg Q4HPRN PRN IV 11/12/24 07:45 11/25/24 06:32 4 MG Pantoprazole Sodium 40 mg DAILY IV 11/13/24 10:00 12/05/24 10:16 40 MG Morphine Sulfate 2 mg Q4HPRN PRN IV 11/12/24 16:45 12/05/24 18:19 2 MG Vancomycin HCl 300 ml @ 200 mls/hr Q12H IV 11/13/24 15:00 UNV Dextrose 50 ml UD IV 11/15/24 12:00 Hydralazine HCl 10 mg Q6HP PRN IV 11/16/24 15:45 12/04/24 16:06 10 MG Fat Emulsion Intravenous 200 ml/Sodium Chloride 80 meq/ Sodium Acetate 40 meq/Potassium Chloride 40 meq/ Potassium Phosphate 22 meq/ Calcium Gluconate 2.3 meq/Magnesium Sulfate 8 meq/ Multivitamins 10 ml/Chromium/ Copper/Manganese/ Zinc 1 ml/Amino Acids/Dextrose 1,582.9462 ml @ 66 mls/hr Q24H IV 11/18/24 22:00 11/19/24 21:59 Cancel Sodium Chloride 10 ml QSHIFT@10,22 IV 11/25/24 22:00 12/05/24 10:19 10 ML Linezolid 300 ml @ 150 mls/hr Q12HR IV 11/25/24 22:00 12/05/24 11:42 150 MLS/HR Potassium Chloride 100 ml @ 50 mls/hr Q2H IV 11/27/24 11:30 11/27/24 15:29 UNV Albumin Human 50 ml @ 100 mls/hr Q8H IV 11/29/24 07:45 Cancel Lorazepam 0.5 mg Q6HP PRN IV 11/29/24 09:00 12/04/24 22:22 0.5 MG Micafungin Sodium 100 mg/Sodium Chloride 100 ml @ 100 mls/hr DAILY IV 12/01/24 10:00 12/05/24 10:16 100 MLS/HR Enoxaparin Sodium 140 mg Q12HR SC 12/02/24 10:00 12/05/24 10:22 140 MG Ipratropium [place] 0.5 mg Q6HR NEB 12/02/24 09:00 12/05/24 12:03 0.5 MG Levalbuterol HCl 0.625 mg Q6HR NEB 12/02/24 09:00 12/05/24 12:03 0.625 MG Cefepime HCl 50 ml @ 12.5 mls/hr Q8H IV 12/03/24 18:00 12/05/24 14:01 12.5 MLS/HR Acetaminophen/ Hydrocodone Bitart 1 tab Q4HPRN PRN PO 12/03/24 10:00 12/03/24 15:03 1 TAB Fat Emulsion Intravenous 200 ml/Sodium Chloride 160 meq/ Potassium Acetate 20 meq/Potassium Phosphate 30 meq/ Calcium Gluconate 6 meq/Magnesium Sulfate 24 meq/ Multivitamins 10 ml/Chromium/ Copper/Manganese/ Zinc 1 ml/Amino Acids/Dextrose 1,886.7214 ml @ 78 mls/hr [id number] IV 12/03/24 22:00 12/03/24 22:00 Cancel Carvedilol 25 mg Q12HR PO 12/04/24 22:00 12/05/24 10:19 25 MG laboratory and microbiology Laboratory Tests 12/05/24 04:46 Test 12/05/24 04:46 Range/Units Serum Glucose 109 H 74-106 mg/dL Assessment/Plan Impression Acute hypoxemic respiratory failure Nonocclusive DVT Bowel perforation Atelectasis Patient seen and examined in [facility] Events Low oxygen requirements On 2 liters nasal cannula No distress GIOVANNY drains in place s/p ex lap Labs and imaging reviewed Management Supplemental oxygen Titrate to maintain sats 90% or above Incentive spirometry Continue antibiotics F/u cultures Bronchodilators Recommend diuresis Monitor renal function Monitor electrolytes Supplement as needed Pain control Avoid oversedation F/u general surgery DVT prophylaxis Dietary Evaluation Review Comments: To meet at least 75% ofpt's needs, recommend TPN kcal to be increased to 1500-2000kcal range and protein to be increased to 80-90g/d. Expected Outcomes/Goals: Pt will experience a gradual wt loss at this kcal level, yet, the appropriated nutrition support of protein and kcal can enhance pt's GI perforation healing process, and help him regain normal GI functionality Plan discussed with: Patient DALJIT BATRES MD Dec 05, 2024 18:28
[2024-12-05] MEDS: CEFEPIME 2GM/50ML NS 50 ML IV SCH (20:20)
[2024-12-06] VITALS (60 sets, daily range): BP systolic 105–165; BP diastolic 49–89; PULSE 96–133; RESP 12–32; TEMP 98.7–100; O2SAT 93–99
[2024-12-06 05:45] LABS: Hematocrit 24.2 % (41.0-53.0); Hemoglobin 8.2 g/dL (13.5-17.5); Mean Corpuscular Hemoglobin 28.6 pg (28.0-32.0); Mean Corpuscular Volume 84.0 fL (80.0-100.0); Nucleated Red Blood Cells % 0.0 %
[2024-12-06 05:54] LABS: Potassium 4.2 mmol/L (3.5-5.1)
[2024-12-06 05:55] LABS: Anion Gap 6 (5-15); Carbon Dioxide 28 mmol/L (20-31)
[2024-12-06 06:01] LABS: BUN/Creatinine Ratio 23.8 (10.0-20.0); Blood Urea Nitrogen 10 mg/dL (9-23)
[2024-12-06 06:02] LABS: Calcium 7.4 mg/dL (8.7-10.4); Chloride 97 mmol/L (98-107); Glucose 119 mg/dL (74-106); Sodium 131 mmol/L (136-145)
[2024-12-06] MEDS: MORPHINE SULFATE INJ 2 MG/ml SYRG ONE (08:39)
[2024-12-06] MEDS: MORPHINE SULFATE 4 MG/ML SYR/VIAL ONE (08:48)
--- NOTE | 2024-12-06 09:53 | DVHPN2 ---
Subjective Patient denies any symptoms at this time. 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 General Appearance: Alert, Oriented X3, Cooperative, mild distress HEENT: Atraumatic, PERRLA Lungs: Clear to auscultation, Normal air movement, Other (Nasal cannula at 4 L/min) Cardiovascular: Normal S1, Normal S2, Other (Sinus tachycardia) Abdomen: Other (Abdominal wound has dehiscence. Wound VAC placed.) Genitourinary: No Apparent Abnormalities (Hernandez catheter) Musculoskeletal: Normal sensory function, Normal motor function Neuro: Normal gait, Normal speech, Sensation intact, Cranial nerves 3-12 NL Skin: Dry, Intact Psych/Mental Status: Mental status NL, Mood NL Medications Current Medications Medications Dose Ordered Sig/Edis Route Start Time Stop Time Status Last Admin Dose Admin Acetaminophen 650 mg Q6HPRN PRN PO 11/11/24 23:45 12/03/24 09:22 650 MG Piperacillin Sod/ Tazobactam Sod 100 ml @ 25 mls/hr Q8HR IV 11/12/24 06:00 UNV Ondansetron HCl 4 mg Q4HPRN PRN IV 11/12/24 07:45 11/25/24 06:32 4 MG Pantoprazole Sodium 40 mg DAILY IV 11/13/24 10:00 12/05/24 10:16 40 MG Morphine Sulfate 2 mg Q4HPRN PRN IV 11/12/24 16:45 12/06/24 08:35 2 MG Vancomycin HCl 300 ml @ 200 mls/hr Q12H IV 11/13/24 15:00 UNV Dextrose 50 ml UD IV 11/15/24 12:00 Hydralazine HCl 10 mg Q6HP PRN IV 11/16/24 15:45 12/04/24 16:06 10 MG Fat Emulsion Intravenous 200 ml/Sodium Chloride 80 meq/ Sodium Acetate 40 meq/Potassium Chloride 40 meq/ Potassium Phosphate 22 meq/ Calcium Gluconate 2.3 meq/Magnesium Sulfate 8 meq/ Multivitamins 10 ml/Chromium/ Copper/Manganese/ Zinc 1 ml/Amino Acids/Dextrose 1,582.9462 ml @ 66 mls/hr Q24H IV 11/18/24 22:00 11/19/24 21:59 Cancel Sodium Chloride 10 ml QSHIFT@10,22 IV 11/25/24 22:00 12/05/24 22:26 10 ML Linezolid 300 ml @ 150 mls/hr Q12HR IV 11/25/24 22:00 12/05/24 22:27 150 MLS/HR Potassium Chloride 100 ml @ 50 mls/hr Q2H IV 11/27/24 11:30 11/27/24 15:29 UNV Albumin Human 50 ml @ 100 mls/hr Q8H IV 11/29/24 07:45 Cancel Lorazepam 0.5 mg Q6HP PRN IV 11/29/24 09:00 12/06/24 00:38 0.5 MG Micafungin Sodium 100 mg/Sodium Chloride 100 ml @ 100 mls/hr DAILY IV 12/01/24 10:00 12/05/24 10:16 100 MLS/HR Enoxaparin Sodium 140 mg Q12HR SC 12/02/24 10:00 12/05/24 22:29 140 MG Ipratropium [place] 0.5 mg Q6HR NEB 12/02/24 09:00 12/06/24 06:28 0.5 MG Levalbuterol HCl 0.625 mg Q6HR NEB 12/02/24 09:00 12/06/24 06:28 0.625 MG Acetaminophen/ Hydrocodone Bitart 1 tab Q4HPRN PRN PO 12/03/24 10:00 12/03/24 15:03 1 TAB Fat Emulsion Intravenous 200 ml/Sodium Chloride 160 meq/ Potassium Acetate 20 meq/Potassium Phosphate 30 meq/ Calcium Gluconate 6 meq/Magnesium Sulfate 24 meq/ Multivitamins 10 ml/Chromium/ Copper/Manganese/ Zinc 1 ml/Amino Acids/Dextrose 1,886.7214 ml @ 78 mls/hr [id number] IV 12/03/24 22:00 12/03/24 22:00 Cancel Carvedilol 25 mg Q12HR PO 12/04/24 22:00 12/05/24 22:28 25 MG Cefepime HCl 50 ml @ 12.5 mls/hr Q8H IV 12/05/24 20:00 12/06/24 04:43 12.5 MLS/HR Laboratory Results Laboratory Tests 12/06/24 04:55 Chemistry Test 12/06/24 04:55 Calcium Level 7.4 mg/dL (8.7-10.4) L Urinalysis Test 11/11/24 20:50 Urine Color Yellow (Yellow) Urine Clarity Clear (Clear) Urine pH 6.0 (5.0-9.0) Urine Specific [place] 1.021 (1.001-1.035) Urine Protein 1+ (Negative) H Urine Ketones Negative (Negative) Urine Blood 2+ /uL (Negative) H Urine Nitrite Negative (Negative) Urine Bilirubin Negative (Negative) Urine Urobilinogen 3 mg/dL (Negative) H Urine Leukocyte Esterase Negative /uL (Negative) Urine RBC 1 /hpf (0 - 3) Urine Microscopic WBC 6 /HPF (0-3) H Urine Squamous Epithelial Cells None seen /hpf (<5) Urine Bacteria None seen /hpf (None Seen) Urine Mucus Few (None Seen) Urine Glucose 1+ mg/dL (Normal) H Microbiology Microbiology Date/Time Source Procedure Growth Status 12/01/24 17:30 Blood Blood Culture - Preliminary NO GROWTH AFTER 72 HOURS OF INCUBATION. Resulted 11/22/24 10:15 Abdomen Gram Stain - Final Complete 11/22/24 10:15 Abdomen Anaerobic Culture - Final Complete 11/22/24 10:15 Aerobic Culture - Final Escherichia coli Enterococcus faecium - VRE Complete 11/18/24 10:20 Voided Urine Urine Culture - Final Complete 11/15/24 13:15 Aspirate Gram Stain - Final Complete 11/15/24 13:15 Body Fluid Culture - Final Escherichia coli Complete Labs and/or images reviewed: Labs reviewed by me Assessment/Plan Assessment/Plan Impression: -severe sepsis secondary to perforated diverticulitis -obesity -hypokalemia -hyponatremia -right upper extremity DVT, repeat ultrasound reports resolution -Atelectasis Plan: Events: Dino removed with bottom 3rd of dehiscence the evening. Remainder abdominal had dehiscence early this a.m.. White blood cell count normal. Reconsult Wound Care nurse to place wound VAC higher wound. CT of abdomen and pelvis. Discussed the case with infectious disease doctor or outpatient coverage. -IV antibiotics: Continue Meropenem, Zyvox, micafungin -continue TPN. -PPI -pain management -out of bed as tolerated, physical therapy -incentive spirometer Repeat CT scan Total time spent with patient discussing and formulating plan of care: 35 minutes. This medical document was created using an electronic medical record system with [employer] dictation system. Although this document has been carefully reviewed, there may still be some phonetic and typographical errors. These areas are purely typographical due to imperfections of the software programs, and do not reflect any compromise in the patient's medical care. Plan discussed with: Patient, Other (RN) My Orders Orders - SANDRA GOODMAN NP Procedure Category Date Status Time Transfer Orders XFER 12/05/24 Transmitted 09:53 Ct Ab Pel With Iv Con CT 12/06/24 Logged Only 09:09 * Engineering Director CONS 12/06/24 Transmitted Consult Date of Service: Dec 06, 2024 Billing Provider: SANDRA GOODMAN NP Common Visit Codes: [id number] INP/OBS CARE(HIGH) SANDRA GOODMAN NP Dec 06, 2024 09:53
--- NOTE | 2024-12-06 10:50 | DVHPN2 ---
Progress Note - Dictate Date Seen: Dec 06, 2024 Medical Necessity Reason Pt with a Central, PICC or Fol: No Subjective No new acute complaints noted. pending CT abdomen and pelvis has stool in colostomy bag, semi formed not much drainage from GIOVANNY drain vital signs Vital Sign Date Time Temp Pulse Resp B/P (MAP) Pulse Ox O2 Delivery O2 Flow Rate FiO2 12/06/24 10:04 101 132/75 12/06/24 09:09 16 12/06/24 08:30 94 12/06/24 08:00 99.3 99.3 12/06/24 06:28 Nasal Cannula* 2 28 Total Intake and Output 12/05/24 12/05/24 12/06/24 15:00 23:00 07:00 Intake Total 450 ml 372.5 ml 830 ml Output Total 975 ml 950 ml Balance 450 ml -602.5 ml -120 ml medications Current Medications Medications Dose Ordered Sig/Edis Route Start Time Stop Time Status Last Admin Dose Admin Acetaminophen 650 mg Q6HPRN PRN PO 11/11/24 23:45 12/03/24 09:22 650 MG Piperacillin Sod/ Tazobactam Sod 100 ml @ 25 mls/hr Q8HR IV 11/12/24 06:00 UNV Ondansetron HCl 4 mg Q4HPRN PRN IV 11/12/24 07:45 11/25/24 06:32 4 MG Pantoprazole Sodium 40 mg DAILY IV 11/13/24 10:00 12/06/24 10:03 40 MG Morphine Sulfate 2 mg Q4HPRN PRN IV 11/12/24 16:45 12/06/24 08:35 2 MG Vancomycin HCl 300 ml @ 200 mls/hr Q12H IV 11/13/24 15:00 UNV Dextrose 50 ml UD IV 11/15/24 12:00 Hydralazine HCl 10 mg Q6HP PRN IV 11/16/24 15:45 12/04/24 16:06 10 MG Fat Emulsion Intravenous 200 ml/Sodium Chloride 80 meq/ Sodium Acetate 40 meq/Potassium Chloride 40 meq/ Potassium Phosphate 22 meq/ Calcium Gluconate 2.3 meq/Magnesium Sulfate 8 meq/ Multivitamins 10 ml/Chromium/ Copper/Manganese/ Zinc 1 ml/Amino Acids/Dextrose 1,582.9462 ml @ 66 mls/hr Q24H IV 11/18/24 22:00 11/19/24 21:59 Cancel Sodium Chloride 10 ml QSHIFT@10,22 IV 11/25/24 22:00 12/06/24 10:05 10 ML Linezolid 300 ml @ 150 mls/hr Q12HR IV 11/25/24 22:00 12/06/24 10:05 150 MLS/HR Potassium Chloride 100 ml @ 50 mls/hr Q2H IV 11/27/24 11:30 11/27/24 15:29 UNV Albumin Human 50 ml @ 100 mls/hr Q8H IV 11/29/24 07:45 Cancel Lorazepam 0.5 mg Q6HP PRN IV 11/29/24 09:00 12/06/24 00:38 0.5 MG Micafungin Sodium 100 mg/Sodium Chloride 100 ml @ 100 mls/hr DAILY IV 12/01/24 10:00 12/06/24 10:04 100 MLS/HR Enoxaparin Sodium 140 mg Q12HR SC 12/02/24 10:00 12/06/24 10:04 140 MG Ipratropium [place] 0.5 mg Q6HR NEB 12/02/24 09:00 12/06/24 06:28 0.5 MG Levalbuterol HCl 0.625 mg Q6HR NEB 12/02/24 09:00 12/06/24 06:28 0.625 MG Acetaminophen/ Hydrocodone Bitart 1 tab Q4HPRN PRN PO 12/03/24 10:00 12/03/24 15:03 1 TAB Fat Emulsion Intravenous 200 ml/Sodium Chloride 160 meq/ Potassium Acetate 20 meq/Potassium Phosphate 30 meq/ Calcium Gluconate 6 meq/Magnesium Sulfate 24 meq/ Multivitamins 10 ml/Chromium/ Copper/Manganese/ Zinc 1 ml/Amino Acids/Dextrose 1,886.7214 ml @ 78 mls/hr [id number] IV 12/03/24 22:00 12/03/24 22:00 Cancel Carvedilol 25 mg Q12HR PO 12/04/24 22:00 12/06/24 10:04 25 MG Cefepime HCl 50 ml @ 12.5 mls/hr Q8H IV 12/05/24 20:00 12/06/24 04:43 12.5 MLS/HR objective General Appearance: Alert, Oriented X3, Cooperative, No acute distress obese HEENT: Atraumatic, PERRLA, EOMI, Mucous membrane moist/pink Respiratory: Clear to auscultation, Normal air movement Cardiovascular: Regular rate, Normal S1, Normal S2, No murmurs, no chest wall tenderness Abdominal: s/p abdominal surgery, has GIOVANNY drain. midline incision site looks ok. has colostomy. 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 he has a wound vac too. GIOVANNY drain shows not much drainage, nontender abdomen pending CT abdomen and pelvis with contrast if CT results doesnt show abscess then will consider taper to oral antibiotics wbc normal today He has had prolonged hospital stay, currently in [facility]. s/p colon resection on 11/22 s/p colostomy with output. had diverticular abscess with OR cx grew VRE cont Linezolid, Cefepime and Micafungin; continue . Review of cultures: 11/11, Blood culture showed no growth 11/11, Urine culture showed no growth 11/12, MRSA screening came back negative 11/13, Urine culture showed no growth 11/15, Body fluid culture showed E. coli 11/18, Blood culture showed no growth 11/18, urine culture showed no growth 11/22, OR culture showed E. coli and Enterococcus faecium 11/28, Blood culture showed no growth 12/01, Blood culture preliminary showed no growth Antibiotic status: Cefepime IV [Started on 12/03 - Ongoing] Micafungin IV [Started on 12/01 - Ongoing] Linezolid IV [Started on 11/25 - Ongoing] Meropenem IV [Given on 11/29 - Ongoing] Flagyl IV Started on 11/22 - 11/29] Ceftriaxone IV [Started on 11/25 - 11/29] Prognosis guarded plan discussed with patient / Homer [employer] P[employer]ER Thank you for consult Dietary Evaluation Review Comments: To meet at least 75% ofpt's needs, recommend TPN kcal to be increased to 1500-2000kcal range and protein to be increased to 80-90g/d. Expected Outcomes/Goals: Pt will experience a gradual wt loss at this kcal level, yet, the appropriated nutrition support of protein and kcal can enhance pt's GI perforation healing process, and help him regain normal GI functionality Plan discussed with: Patient MAKENNA STONER MD Dec 06, 2024 10:50
--- NOTE | 2024-12-06 11:02 | DVHPN2 ---
Progress Note Date Seen: Dec 06, 2024 Medical Necessity Reason Pt with a Central, PICC or Fol: No Objective vital signs Vital Sign Date Time Temp Pulse Resp B/P (MAP) Pulse Ox O2 Delivery O2 Flow Rate FiO2 12/06/24 10:04 101 132/75 12/06/24 09:09 16 12/06/24 08:30 94 12/06/24 08:00 99.3 99.3 12/06/24 06:28 Nasal Cannula* 2 28 Total Intake and Output 12/05/24 12/05/24 12/06/24 15:00 23:00 07:00 Intake Total 450 ml 372.5 ml 830 ml Output Total 975 ml 950 ml Balance 450 ml -602.5 ml -120 ml medications Current Medications Medications Dose Ordered Sig/Edis Route Start Time Stop Time Status Last Admin Dose Admin Acetaminophen 650 mg Q6HPRN PRN PO 11/11/24 23:45 12/03/24 09:22 650 MG Piperacillin Sod/ Tazobactam Sod 100 ml @ 25 mls/hr Q8HR IV 11/12/24 06:00 UNV Ondansetron HCl 4 mg Q4HPRN PRN IV 11/12/24 07:45 11/25/24 06:32 4 MG Pantoprazole Sodium 40 mg DAILY IV 11/13/24 10:00 12/06/24 10:03 40 MG Morphine Sulfate 2 mg Q4HPRN PRN IV 11/12/24 16:45 12/06/24 08:35 2 MG Vancomycin HCl 300 ml @ 200 mls/hr Q12H IV 11/13/24 15:00 UNV Dextrose 50 ml UD IV 11/15/24 12:00 Hydralazine HCl 10 mg Q6HP PRN IV 11/16/24 15:45 12/04/24 16:06 10 MG Fat Emulsion Intravenous 200 ml/Sodium Chloride 80 meq/ Sodium Acetate 40 meq/Potassium Chloride 40 meq/ Potassium Phosphate 22 meq/ Calcium Gluconate 2.3 meq/Magnesium Sulfate 8 meq/ Multivitamins 10 ml/Chromium/ Copper/Manganese/ Zinc 1 ml/Amino Acids/Dextrose 1,582.9462 ml @ 66 mls/hr Q24H IV 11/18/24 22:00 11/19/24 21:59 Cancel Sodium Chloride 10 ml QSHIFT@10,22 IV 11/25/24 22:00 12/06/24 10:05 10 ML Linezolid 300 ml @ 150 mls/hr Q12HR IV 11/25/24 22:00 12/06/24 10:05 150 MLS/HR Potassium Chloride 100 ml @ 50 mls/hr Q2H IV 11/27/24 11:30 11/27/24 15:29 UNV Albumin Human 50 ml @ 100 mls/hr Q8H IV 11/29/24 07:45 Cancel Lorazepam 0.5 mg Q6HP PRN IV 11/29/24 09:00 12/06/24 00:38 0.5 MG Micafungin Sodium 100 mg/Sodium Chloride 100 ml @ 100 mls/hr DAILY IV 12/01/24 10:00 12/06/24 10:04 100 MLS/HR Enoxaparin Sodium 140 mg Q12HR SC 12/02/24 10:00 12/06/24 10:04 140 MG Ipratropium [place] 0.5 mg Q6HR NEB 12/02/24 09:00 12/06/24 06:28 0.5 MG Levalbuterol HCl 0.625 mg Q6HR NEB 12/02/24 09:00 12/06/24 06:28 0.625 MG Acetaminophen/ Hydrocodone Bitart 1 tab Q4HPRN PRN PO 12/03/24 10:00 12/03/24 15:03 1 TAB Fat Emulsion Intravenous 200 ml/Sodium Chloride 160 meq/ Potassium Acetate 20 meq/Potassium Phosphate 30 meq/ Calcium Gluconate 6 meq/Magnesium Sulfate 24 meq/ Multivitamins 10 ml/Chromium/ Copper/Manganese/ Zinc 1 ml/Amino Acids/Dextrose 1,886.7214 ml @ 78 mls/hr [id number] IV 12/03/24 22:00 12/03/24 22:00 Cancel Carvedilol 25 mg Q12HR PO 12/04/24 22:00 12/06/24 10:04 25 MG Cefepime HCl 50 ml @ 12.5 mls/hr Q8H IV 12/05/24 20:00 12/06/24 04:43 12.5 MLS/HR laboratory and microbiology Laboratory Tests 12/06/24 04:55 Test 12/06/24 04:55 Range/Units Serum Glucose 119 H 74-106 mg/dL Problem List/Assessment/Plan Problem List/Assessment/Plan 11/13/24feels well, abdomen non tender, ;leukocytosis, continue, as is, repeat CT scan in 48 hours 11/15/24 UNDERWENT PERCUTANEOUS DRAINAGE OF PERICOLONIC ABSCESS, ABDOMEN NON DISTENDED, NON TENDER. WILL FOLLOW 11/16/24 feels well, hungry, abdomen non tyender, derainage purulent, will irrigate, allow po intake 11/19/24 NO ABDOMINAL PAIN, NO NAUSEA, ABDOMEN NON TENDER, PICC LINE WAS REMOVED ,WILL CHECK CBC IN AM 11/20/24 await CBC tomorrow to decide on next step, abdomen non ternder but no BM, he feels "backed Up" will get gastrografin bowel x ray. 11/21/24 patient had a few bowel movements but feels worse, although his abdomen is not tender, his WBC is climbing and his CT scan looks much worse. I gave the patient the option to go back to NPO and TPN vs an operation with a colostomy, he choses to be operated on and get a colostomy as this "may be a faster way to get better". Operation, risks and complications explained in detail/ 11/27/24 feels better, no flatus in stoma bag, stoma viable,wound with some infection at inferior aspect of infraumbilical extent, abdomen appropriately tender, will allow ice chips and sips of water, must be out iof bed q 4 hours 11/29/24 ABDOMEN NON DISTENDED, APPROPRIATELY TENDER ,STOMA VIABLE WITH LIQUID OUTPUT BUT ONLY SMALL AMOUNT OF FLATUS. PATIENT IS BELCHING , FLUID [id number] IN THE RIGHT PELVIS IS NOT ADEQUATELY DRAINED BY THE INDWELLING DRAIN, WILL REQUEST RADIOLOGIST TO ATTEMPT MORE ADEQUATE DRAINAGE UNDER CT GUIDANCE. WILL INCREASE iv FLUIDS DUE TO TACHYCARDIA AND EVIDENCE OF BOWEL DISTENSION 11/30/24 appears tachypneic, has tachycardia. abdomen non distended, stoma viable and with liquid output but without flatus.wound ok, will ask pulm. to see, to r/o need for bronchoscopy and r/o PE. the radiologist did not feel a CT guided aspiration of pelvic fluid was feasible, will have nurses irrigate drain. will get inf. ds. consult 12/01/24, IMPROVED, DC NGT START PO CLEAR LIQUIDS 12/02/24 BP and Heart Rate controlled by Beta blockade, abdomen OK,stoma viable and functioning, advance diet and activity 12/03/24 feels ok abdomen soft, non distended, wound with small skin dehiscence at inferior aspect, stoma functioning, evacuating distal colon per rectum(expected) tomorrow can be downgraded 12/04/24 doing well, afebrile, normotensive, HR increased after the Coreg dosage was halved, BP is ok, abdomen non distended, non tender, stoma viable and functioning. stable for transfer to a med-surg bed. 12/05/24 no pain,no nausea,abdomen non distended, non tender, wound with partial skin separation, will use wound vac. labs OK, low albumin. Plan discussed with: Patient, Other Dietary Evaluation Review Comments: To meet at least 75% ofpt's needs, recommend TPN kcal to be increased to 1500-2000kcal range and protein to be increased to 80-90g/d. Expected Outcomes/Goals: Pt will experience a gradual wt loss at this kcal level, yet, the appropriated nutrition support of protein and kcal can enhance pt's GI perforation healing process, and help him regain normal GI functionality DANA CHOW MD Dec 06, 2024 11:02
--- NOTE | 2024-12-06 11:36 | DVHPN2 ---
Progress Note Date Seen: Dec 06, 2024 Medical Necessity Reason Pt with a Central, PICC or Fol: No Objective vital signs Vital Sign Date Time Temp Pulse Resp B/P (MAP) Pulse Ox O2 Delivery O2 Flow Rate FiO2 12/06/24 10:04 101 132/75 12/06/24 10:00 13 94 Nasal Cannula* 2 28 12/06/24 08:00 99.3 99.3 Total Intake and Output 12/05/24 12/05/24 12/06/24 15:00 23:00 07:00 Intake Total 450 ml 372.5 ml 830 ml Output Total 975 ml 950 ml Balance 450 ml -602.5 ml -120 ml medications Current Medications Medications Dose Ordered Sig/Edis Route Start Time Stop Time Status Last Admin Dose Admin Acetaminophen 650 mg Q6HPRN PRN PO 11/11/24 23:45 12/03/24 09:22 650 MG Piperacillin Sod/ Tazobactam Sod 100 ml @ 25 mls/hr Q8HR IV 11/12/24 06:00 UNV Ondansetron HCl 4 mg Q4HPRN PRN IV 11/12/24 07:45 11/25/24 06:32 4 MG Pantoprazole Sodium 40 mg DAILY IV 11/13/24 10:00 12/06/24 10:03 40 MG Morphine Sulfate 2 mg Q4HPRN PRN IV 11/12/24 16:45 12/06/24 08:35 2 MG Vancomycin HCl 300 ml @ 200 mls/hr Q12H IV 11/13/24 15:00 UNV Dextrose 50 ml UD IV 11/15/24 12:00 Hydralazine HCl 10 mg Q6HP PRN IV 11/16/24 15:45 12/04/24 16:06 10 MG Fat Emulsion Intravenous 200 ml/Sodium Chloride 80 meq/ Sodium Acetate 40 meq/Potassium Chloride 40 meq/ Potassium Phosphate 22 meq/ Calcium Gluconate 2.3 meq/Magnesium Sulfate 8 meq/ Multivitamins 10 ml/Chromium/ Copper/Manganese/ Zinc 1 ml/Amino Acids/Dextrose 1,582.9462 ml @ 66 mls/hr Q24H IV 11/18/24 22:00 11/19/24 21:59 Cancel Sodium Chloride 10 ml QSHIFT@10,22 IV 11/25/24 22:00 12/06/24 10:05 10 ML Linezolid 300 ml @ 150 mls/hr Q12HR IV 11/25/24 22:00 12/06/24 10:05 150 MLS/HR Potassium Chloride 100 ml @ 50 mls/hr Q2H IV 11/27/24 11:30 11/27/24 15:29 UNV Albumin Human 50 ml @ 100 mls/hr Q8H IV 11/29/24 07:45 Cancel Lorazepam 0.5 mg Q6HP PRN IV 11/29/24 09:00 12/06/24 00:38 0.5 MG Micafungin Sodium 100 mg/Sodium Chloride 100 ml @ 100 mls/hr DAILY IV 12/01/24 10:00 12/06/24 10:04 100 MLS/HR Enoxaparin Sodium 140 mg Q12HR SC 12/02/24 10:00 12/06/24 10:04 140 MG Ipratropium [place] 0.5 mg Q6HR NEB 12/02/24 09:00 12/06/24 06:28 0.5 MG Levalbuterol HCl 0.625 mg Q6HR NEB 12/02/24 09:00 12/06/24 06:28 0.625 MG Acetaminophen/ Hydrocodone Bitart 1 tab Q4HPRN PRN PO 12/03/24 10:00 12/03/24 15:03 1 TAB Fat Emulsion Intravenous 200 ml/Sodium Chloride 160 meq/ Potassium Acetate 20 meq/Potassium Phosphate 30 meq/ Calcium Gluconate 6 meq/Magnesium Sulfate 24 meq/ Multivitamins 10 ml/Chromium/ Copper/Manganese/ Zinc 1 ml/Amino Acids/Dextrose 1,886.7214 ml @ 78 mls/hr [id number] IV 12/03/24 22:00 12/03/24 22:00 Cancel Carvedilol 25 mg Q12HR PO 12/04/24 22:00 12/06/24 10:04 25 MG Cefepime HCl 50 ml @ 12.5 mls/hr Q8H IV 12/05/24 20:00 12/06/24 04:43 12.5 MLS/HR laboratory and microbiology Laboratory Tests 12/06/24 04:55 Test 12/06/24 04:55 Range/Units Serum Glucose 119 H 74-106 mg/dL Problem List/Assessment/Plan Problem List/Assessment/Plan 11/13/24feels well, abdomen non tender, ;leukocytosis, continue, as is, repeat CT scan in 48 hours 11/15/24 UNDERWENT PERCUTANEOUS DRAINAGE OF PERICOLONIC ABSCESS, ABDOMEN NON DISTENDED, NON TENDER. WILL FOLLOW 11/16/24 feels well, hungry, abdomen non tyender, derainage purulent, will irrigate, allow po intake 11/19/24 NO ABDOMINAL PAIN, NO NAUSEA, ABDOMEN NON TENDER, PICC LINE WAS REMOVED ,WILL CHECK CBC IN AM 11/20/24 await CBC tomorrow to decide on next step, abdomen non ternder but no BM, he feels "backed Up" will get gastrografin bowel x ray. 11/21/24 patient had a few bowel movements but feels worse, although his abdomen is not tender, his WBC is climbing and his CT scan looks much worse. I gave the patient the option to go back to NPO and TPN vs an operation with a colostomy, he choses to be operated on and get a colostomy as this "may be a faster way to get better". Operation, risks and complications explained in detail/ 11/27/24 feels better, no flatus in stoma bag, stoma viable,wound with some infection at inferior aspect of infraumbilical extent, abdomen appropriately tender, will allow ice chips and sips of water, must be out iof bed q 4 hours 11/29/24 ABDOMEN NON DISTENDED, APPROPRIATELY TENDER ,STOMA VIABLE WITH LIQUID OUTPUT BUT ONLY SMALL AMOUNT OF FLATUS. PATIENT IS BELCHING , FLUID [id number] IN THE RIGHT PELVIS IS NOT ADEQUATELY DRAINED BY THE INDWELLING DRAIN, WILL REQUEST RADIOLOGIST TO ATTEMPT MORE ADEQUATE DRAINAGE UNDER CT GUIDANCE. WILL INCREASE iv FLUIDS DUE TO TACHYCARDIA AND EVIDENCE OF BOWEL DISTENSION 11/30/24 appears tachypneic, has tachycardia. abdomen non distended, stoma viable and with liquid output but without flatus.wound ok, will ask pulm. to see, to r/o need for bronchoscopy and r/o PE. the radiologist did not feel a CT guided aspiration of pelvic fluid was feasible, will have nurses irrigate drain. will get inf. ds. consult 12/01/24, IMPROVED, DC NGT START PO CLEAR LIQUIDS 12/02/24 BP and Heart Rate controlled by Beta blockade, abdomen OK,stoma viable and functioning, advance diet and activity 12/03/24 feels ok abdomen soft, non distended, wound with small skin dehiscence at inferior aspect, stoma functioning, evacuating distal colon per rectum(expected) tomorrow can be downgraded 12/04/24 doing well, afebrile, normotensive, HR increased after the Coreg dosage was halved, BP is ok, abdomen non distended, non tender, stoma viable and functioning. stable for transfer to a med-surg bed. 12/05/24 no pain,no nausea,abdomen non distended, non tender, wound with partial skin separation, will use wound vac. labs OK, low albumin. 12/06/24 skin separation of almost entire wound, needs a larger wound vac, other dunaway stable Plan discussed with: Patient, Other Dietary Evaluation Review Comments: To meet at least 75% ofpt's needs, recommend TPN kcal to be increased to 1500-2000kcal range and protein to be increased to 80-90g/d. Expected Outcomes/Goals: Pt will experience a gradual wt loss at this kcal level, yet, the appropriated nutrition support of protein and kcal can enhance pt's GI perforation healing process, and help him regain normal GI functionality DANA CHOW MD Dec 06, 2024 11:35
[2024-12-06] MEDS: IOHEXOL 300 MG/ML 100ML BOTTLE IJ ONE (14:48)
--- NOTE | 2024-12-06 15:27 | DVHPN2 ---
Progress Note Date Seen: Dec 06, 2024 Resident Creating Document: JULIA MARES Medical Necessity Reason Pt with a Central, PICC or Fol: Yes The following are medically ne: PICC Line Subjective Review of Systems Patient was seen today at bedside Patient had low-grade fever last night Leukocytosis resolved Patient had wound dehiscence, surgery recommendation reviewed Patient on wound VAC Pending repeat CT scan of the abdomen and pelvis Objective vital signs Vital Sign Date Time Temp Pulse Resp B/P (MAP) Pulse Ox O2 Delivery O2 Flow Rate FiO2 12/06/24 14:32 100 26 122/71 12/06/24 12:15 93 12/06/24 12:00 Nasal Cannula* 2 28 12/06/24 12:00 98.7 98.7 Total Intake and Output 12/05/24 12/05/24 12/06/24 15:00 23:00 07:00 Intake Total 450 ml 372.5 ml 830 ml Output Total 975 ml 950 ml Balance 450 ml -602.5 ml -120 ml medications Current Medications Medications Dose Ordered Sig/Edis Route Start Time Stop Time Status Last Admin Dose Admin Acetaminophen 650 mg Q6HPRN PRN PO 11/11/24 23:45 12/03/24 09:22 650 MG Piperacillin Sod/ Tazobactam Sod 100 ml @ 25 mls/hr Q8HR IV 11/12/24 06:00 UNV Ondansetron HCl 4 mg Q4HPRN PRN IV 11/12/24 07:45 11/25/24 06:32 4 MG Pantoprazole Sodium 40 mg DAILY IV 11/13/24 10:00 12/06/24 10:03 40 MG Morphine Sulfate 2 mg Q4HPRN PRN IV 11/12/24 16:45 12/06/24 14:32 2 MG Vancomycin HCl 300 ml @ 200 mls/hr Q12H IV 11/13/24 15:00 UNV Dextrose 50 ml UD IV 11/15/24 12:00 Hydralazine HCl 10 mg Q6HP PRN IV 11/16/24 15:45 12/04/24 16:06 10 MG Fat Emulsion Intravenous 200 ml/Sodium Chloride 80 meq/ Sodium Acetate 40 meq/Potassium Chloride 40 meq/ Potassium Phosphate 22 meq/ Calcium Gluconate 2.3 meq/Magnesium Sulfate 8 meq/ Multivitamins 10 ml/Chromium/ Copper/Manganese/ Zinc 1 ml/Amino Acids/Dextrose 1,582.9462 ml @ 66 mls/hr Q24H IV 11/18/24 22:00 11/19/24 21:59 Cancel Sodium Chloride 10 ml QSHIFT@10,22 IV 11/25/24 22:00 12/06/24 10:05 10 ML Linezolid 300 ml @ 150 mls/hr Q12HR IV 11/25/24 22:00 12/06/24 10:05 150 MLS/HR Potassium Chloride 100 ml @ 50 mls/hr Q2H IV 11/27/24 11:30 11/27/24 15:29 UNV Albumin Human 50 ml @ 100 mls/hr Q8H IV 11/29/24 07:45 Cancel Lorazepam 0.5 mg Q6HP PRN IV 11/29/24 09:00 12/06/24 00:38 0.5 MG Micafungin Sodium 100 mg/Sodium Chloride 100 ml @ 100 mls/hr DAILY IV 12/01/24 10:00 12/06/24 10:04 100 MLS/HR Enoxaparin Sodium 140 mg Q12HR SC 12/02/24 10:00 12/06/24 10:04 140 MG Ipratropium [place] 0.5 mg Q6HR NEB 12/02/24 09:00 12/06/24 11:47 0.5 MG Levalbuterol HCl 0.625 mg Q6HR NEB 12/02/24 09:00 12/06/24 11:47 0.625 MG Acetaminophen/ Hydrocodone Bitart 1 tab Q4HPRN PRN PO 12/03/24 10:00 12/03/24 15:03 1 TAB Fat Emulsion Intravenous 200 ml/Sodium Chloride 160 meq/ Potassium Acetate 20 meq/Potassium Phosphate 30 meq/ Calcium Gluconate 6 meq/Magnesium Sulfate 24 meq/ Multivitamins 10 ml/Chromium/ Copper/Manganese/ Zinc 1 ml/Amino Acids/Dextrose 1,886.7214 ml @ 78 mls/hr [id number] IV 12/03/24 22:00 12/03/24 22:00 Cancel Carvedilol 25 mg Q12HR PO 12/04/24 22:00 12/06/24 10:04 25 MG Cefepime HCl 50 ml @ 12.5 mls/hr Q8H IV 12/05/24 20:00 12/06/24 13:01 12.5 MLS/HR laboratory and microbiology Laboratory Tests 12/06/24 04:55 Test 12/06/24 04:55 Range/Units Serum Glucose 119 H 74-106 mg/dL Microbiology Date/Time Source Procedure Growth Status 12/01/24 17:30 Blood Blood Culture - Preliminary NO GROWTH AFTER 72 HOURS OF INCUBATION. Resulted 11/22/24 10:15 Abdomen Gram Stain - Final Complete 11/22/24 10:15 Abdomen Anaerobic Culture - Final Complete 11/22/24 10:15 Aerobic Culture - Final Escherichia coli Enterococcus faecium - VRE Complete 11/18/24 10:20 Voided Urine Urine Culture - Final Complete 11/15/24 13:15 Aspirate Gram Stain - Final Complete 11/15/24 13:15 Body Fluid Culture - Final Escherichia coli Complete Problem List/Assessment/Plan Problem List/Assessment/Plan Assessment and plan Problems(with codes): (1) perforated Diverticulitis large intestine (2) Abnormal finding on GI tract imaging (3) Abscess of sigmoid colon due to diverticulitis (4) Leukocytosis Events Patient had low-grade fever last night Leukocytosis resolved Patient had wound dehiscence, surgery recommendation reviewed Patient on wound VAC Pending repeat CT scan of the abdomen and pelvis Prognosis Plan Pending CT scan of the abdomen and pelvis tomorrow Continue regular diet as patient tolerating well Continue broad spectrum IV antibiotics Incentive spirometry Surgical input appreciated On DVT prophylaxis On pantoprazole IV 40 mg daily Physical therapy as tolerate Plan discussed with Dr. Emilee Sharma , nursing staff, Total time spent on patient evaluation, chart review, assessment and plan, discussion discussion >35 minutes Plan discussed with: Patient, Other (RN) Dietary Evaluation Review Comments: To meet at least 75% ofpt's needs, recommend TPN kcal to be increased to 1500-2000kcal range and protein to be increased to 80-90g/d. Expected Outcomes/Goals: Pt will experience a gradual wt loss at this kcal level, yet, the appropriated nutrition support of protein and kcal can enhance pt's GI perforation healing process, and help him regain normal GI functionality JULIA MARES RESIDENT Dec 06, 2024 15:27
--- NOTE | 2024-12-06 15:41 | DVH ---
Exam: CT CT AB PEL WITH IV CON ONLY History: reassess pelvic abscess Comparison Study: CT CT ABD PELVIS W CON-ORAL IV on DOS: 11/28/24, CT CT AB PEL WITH IV CON ONLY on DOS: 11/14/24 TECHNIQUE: Multidetector CT of the abdomen and pelvis with IV contrast. Axial, coronal and sagittal m ultiplanar reformats were obtained from the axial data set by the technologist. Radiation Dose Information: CT Dose: CTDI volume is 27.58 mGy. Dose-length product is 1847.71 mGy*cm FINDINGS: Moderate bilateral pleural effusions with associated atelectasis. Partially visualized heart is unre markable. Moderate volume ascites within the right hemiabdomen and over the left upper abdomen mild ascites wit hin the remainder of the abdomen and pelvis. Right lower abdominal quadrant approach drainage catheter terminating over the left lower lung zone. Mild hepatomegaly. Otherwise, liver, spleen, gallbladder, pancreas and adrenal glands unremarkable. Kidneys, ureters and urinary bladder are unremarkable. Prostate measures 3.9 x 4.5 by 4 cm with Foci of calcification. Stomach is decompressed. Mild distention of proximal small bowel measuring up to 4.3 cm. Mild wall th ickening Segmental of small bowel within the Left lateral hemiabdomen. The remainder of the visualize d small bowel loops unremarkable. Appendix is not definitely visualized. Left lower abdominal quadran t ostomy. Foci of air with fat stranding within the subcutaneous fat adjacent to the ostomy. No evidence of aortic aneurysm or dissection. Mild atherosclerotic calcification of the aorta and greyson ateral iliacs. No significant lymphadenopathy. Small fat containing bilateral inguinal hernias. Mild body wall edema. Moderate periumbilical edema. No evidence of acute osseous abnormalities. Sclerotic focus over the right femoral head which may re present a bone island. IMPRESSION: Postsurgical changes of the colon with left lower abdominal quadrant colostomy. Interval improvement in the loculated intrapelvic /lower abdominal collection. Moderate ascites withi n the right hemiabdomen and left upper abdominal quadrant with mild ascites within the remainder of t he abdomen. Right lower abdominal quadrant approach drainage catheter terminating over the left lower abdominal q uadrant. Mild distention of proximal small bowel of the upper abdomen measuring up to 4.3 cm which may represe nt ileus in the setting of surgery.
--- NOTE | 2024-12-06 16:08 | DVHPN2 ---
Progress Note - Dictate Date Seen: Dec 06, 2024 Medical Necessity Reason Pt with a Central, PICC or Fol: Yes The following are medically ne: PICC Line vital signs Vital Sign Date Time Temp Pulse Resp B/P (MAP) Pulse Ox O2 Delivery O2 Flow Rate FiO2 12/06/24 15:02 103 16 155/96 12/06/24 14:00 95 Nasal Cannula* 2 28 12/06/24 12:00 98.7 98.7 Total Intake and Output 12/05/24 12/05/24 12/06/24 15:00 23:00 07:00 Intake Total 450 ml 372.5 ml 830 ml Output Total 975 ml 950 ml Balance 450 ml -602.5 ml -120 ml medications Current Medications Medications Dose Ordered Sig/Edis Route Start Time Stop Time Status Last Admin Dose Admin Acetaminophen 650 mg Q6HPRN PRN PO 11/11/24 23:45 12/03/24 09:22 650 MG Piperacillin Sod/ Tazobactam Sod 100 ml @ 25 mls/hr Q8HR IV 11/12/24 06:00 UNV Ondansetron HCl 4 mg Q4HPRN PRN IV 11/12/24 07:45 11/25/24 06:32 4 MG Pantoprazole Sodium 40 mg DAILY IV 11/13/24 10:00 12/06/24 10:03 40 MG Morphine Sulfate 2 mg Q4HPRN PRN IV 11/12/24 16:45 12/06/24 14:32 2 MG Vancomycin HCl 300 ml @ 200 mls/hr Q12H IV 11/13/24 15:00 UNV Dextrose 50 ml UD IV 11/15/24 12:00 Hydralazine HCl 10 mg Q6HP PRN IV 11/16/24 15:45 12/04/24 16:06 10 MG Fat Emulsion Intravenous 200 ml/Sodium Chloride 80 meq/ Sodium Acetate 40 meq/Potassium Chloride 40 meq/ Potassium Phosphate 22 meq/ Calcium Gluconate 2.3 meq/Magnesium Sulfate 8 meq/ Multivitamins 10 ml/Chromium/ Copper/Manganese/ Zinc 1 ml/Amino Acids/Dextrose 1,582.9462 ml @ 66 mls/hr Q24H IV 11/18/24 22:00 11/19/24 21:59 Cancel Sodium Chloride 10 ml QSHIFT@10,22 IV 11/25/24 22:00 12/06/24 10:05 10 ML Linezolid 300 ml @ 150 mls/hr Q12HR IV 11/25/24 22:00 12/06/24 10:05 150 MLS/HR Potassium Chloride 100 ml @ 50 mls/hr Q2H IV 11/27/24 11:30 11/27/24 15:29 UNV Albumin Human 50 ml @ 100 mls/hr Q8H IV 11/29/24 07:45 Cancel Lorazepam 0.5 mg Q6HP PRN IV 11/29/24 09:00 12/06/24 00:38 0.5 MG Micafungin Sodium 100 mg/Sodium Chloride 100 ml @ 100 mls/hr DAILY IV 12/01/24 10:00 12/06/24 10:04 100 MLS/HR Enoxaparin Sodium 140 mg Q12HR SC 12/02/24 10:00 12/06/24 10:04 140 MG Ipratropium [place] 0.5 mg Q6HR NEB 12/02/24 09:00 12/06/24 11:47 0.5 MG Levalbuterol HCl 0.625 mg Q6HR NEB 12/02/24 09:00 12/06/24 11:47 0.625 MG Acetaminophen/ Hydrocodone Bitart 1 tab Q4HPRN PRN PO 12/03/24 10:00 12/03/24 15:03 1 TAB Fat Emulsion Intravenous 200 ml/Sodium Chloride 160 meq/ Potassium Acetate 20 meq/Potassium Phosphate 30 meq/ Calcium Gluconate 6 meq/Magnesium Sulfate 24 meq/ Multivitamins 10 ml/Chromium/ Copper/Manganese/ Zinc 1 ml/Amino Acids/Dextrose 1,886.7214 ml @ 78 mls/hr [id number] IV 12/03/24 22:00 12/03/24 22:00 Cancel Carvedilol 25 mg Q12HR PO 12/04/24 22:00 12/06/24 10:04 25 MG Cefepime HCl 50 ml @ 12.5 mls/hr Q8H IV 12/05/24 20:00 12/06/24 13:01 12.5 MLS/HR laboratory and microbiology Laboratory Tests 12/06/24 04:55 Test 12/06/24 04:55 Range/Units Serum Glucose 119 H 74-106 mg/dL Assessment/Plan Impression Acute hypoxemic respiratory failure Nonocclusive DVT Bowel perforation Atelectasis Patient seen and examined in [facility] Events Low oxygen requirements On 2 liters nasal cannula No new complaints S/p ex lap Labs and imaging reviewed Management Supplemental oxygen Titrate to maintain sats 90% or above Incentive spirometry Continue antibiotics F/u cultures Bronchodilators Recommend diuresis Monitor renal function Monitor electrolytes Supplement as needed Pain control Avoid oversedation F/u general surgery DVT prophylaxis Dietary Evaluation Review Comments: To meet at least 75% ofpt's needs, recommend TPN kcal to be increased to 1500-2000kcal range and protein to be increased to 80-90g/d. Expected Outcomes/Goals: Pt will experience a gradual wt loss at this kcal level, yet, the appropriated nutrition support of protein and kcal can enhance pt's GI perforation healing process, and help him regain normal GI functionality Plan discussed with: Patient, Other (Rn) DALJIT BATRES MD Dec 06, 2024 16:08
[2024-12-07] VITALS (36 sets, daily range): BP systolic 107–184; BP diastolic 55–115; PULSE 95–116; RESP 10–30; TEMP 98–99.8; O2SAT 91–99
[2024-12-07 05:40] LABS: Hematocrit 24.2 % (41.0-53.0); Hemoglobin 8.1 g/dL (13.5-17.5); Mean Corpuscular Hemoglobin 27.6 pg (28.0-32.0); Mean Corpuscular Volume 82.9 fL (80.0-100.0); Nucleated Red Blood Cells % 0.1 %
[2024-12-07 05:54] LABS: Potassium 4.1 mmol/L (3.5-5.1)
[2024-12-07 05:55] LABS: Anion Gap 6 (5-15); Carbon Dioxide 29 mmol/L (20-31)
[2024-12-07 06:00] LABS: BUN/Creatinine Ratio 14.9 (10.0-20.0)
[2024-12-07 06:01] LABS: Magnesium 2.0 mg/dL (1.6-2.6)
[2024-12-07 06:32] LABS: Blood Urea Nitrogen 7 mg/dL (9-23); Calcium 8.1 mg/dL (8.7-10.4); Chloride 98 mmol/L (98-107); Glucose 123 mg/dL (74-106); Sodium 133 mmol/L (136-145)
--- NOTE | 2024-12-07 10:07 | DVHPN2 ---
Progress Note Date Seen: Dec 07, 2024 Medical Necessity Reason Pt with a Central, PICC or Fol: Yes The following are medically ne: PICC Line Objective vital signs Vital Sign Date Time Temp Pulse Resp B/P (MAP) Pulse Ox O2 Delivery O2 Flow Rate FiO2 12/07/24 09:26 120 184/115 12/07/24 08:00 99.1 15 97 99.1 12/07/24 08:00 Nasal Cannula* 2 28 Total Intake and Output 12/06/24 12/06/24 12/07/24 15:00 23:00 07:00 Intake Total 737.5 ml 492.5 ml Output Total 2225 ml 1490 ml Balance -1487.5 ml -997.5 ml medications Current Medications Medications Dose Ordered Sig/Edis Route Start Time Stop Time Status Last Admin Dose Admin Acetaminophen 650 mg Q6HPRN PRN PO 11/11/24 23:45 12/03/24 09:22 650 MG Piperacillin Sod/ Tazobactam Sod 100 ml @ 25 mls/hr Q8HR IV 11/12/24 06:00 UNV Ondansetron HCl 4 mg Q4HPRN PRN IV 11/12/24 07:45 11/25/24 06:32 4 MG Pantoprazole Sodium 40 mg DAILY IV 11/13/24 10:00 12/07/24 09:25 40 MG Morphine Sulfate 2 mg Q4HPRN PRN IV 11/12/24 16:45 12/07/24 03:41 2 MG Vancomycin HCl 300 ml @ 200 mls/hr Q12H IV 11/13/24 15:00 UNV Dextrose 50 ml UD IV 11/15/24 12:00 Hydralazine HCl 10 mg Q6HP PRN IV 11/16/24 15:45 12/04/24 16:06 10 MG Fat Emulsion Intravenous 200 ml/Sodium Chloride 80 meq/ Sodium Acetate 40 meq/Potassium Chloride 40 meq/ Potassium Phosphate 22 meq/ Calcium Gluconate 2.3 meq/Magnesium Sulfate 8 meq/ Multivitamins 10 ml/Chromium/ Copper/Manganese/ Zinc 1 ml/Amino Acids/Dextrose 1,582.9462 ml @ 66 mls/hr Q24H IV 11/18/24 22:00 11/19/24 21:59 Cancel Sodium Chloride 10 ml QSHIFT@10,22 IV 11/25/24 22:00 12/07/24 09:25 10 ML Linezolid 300 ml @ 150 mls/hr Q12HR IV 11/25/24 22:00 12/07/24 09:25 150 MLS/HR Potassium Chloride 100 ml @ 50 mls/hr Q2H IV 11/27/24 11:30 11/27/24 15:29 UNV Albumin Human 50 ml @ 100 mls/hr Q8H IV 11/29/24 07:45 Cancel Lorazepam 0.5 mg Q6HP PRN IV 11/29/24 09:00 12/07/24 00:56 0.5 MG Micafungin Sodium 100 mg/Sodium Chloride 100 ml @ 100 mls/hr DAILY IV 12/01/24 10:00 12/07/24 09:00 100 MLS/HR Enoxaparin Sodium 140 mg Q12HR SC 12/02/24 10:00 12/07/24 09:26 140 MG Ipratropium [place] 0.5 mg Q6HR NEB 12/02/24 09:00 12/07/24 06:15 0.5 MG Levalbuterol HCl 0.625 mg Q6HR NEB 12/02/24 09:00 12/07/24 06:15 0.625 MG Acetaminophen/ Hydrocodone Bitart 1 tab Q4HPRN PRN PO 12/03/24 10:00 12/03/24 15:03 1 TAB Fat Emulsion Intravenous 200 ml/Sodium Chloride 160 meq/ Potassium Acetate 20 meq/Potassium Phosphate 30 meq/ Calcium Gluconate 6 meq/Magnesium Sulfate 24 meq/ Multivitamins 10 ml/Chromium/ Copper/Manganese/ Zinc 1 ml/Amino Acids/Dextrose 1,886.7214 ml @ 78 mls/hr [id number] IV 12/03/24 22:00 12/03/24 22:00 Cancel Carvedilol 25 mg Q12HR PO 12/04/24 22:00 12/07/24 09:26 25 MG Cefepime HCl 50 ml @ 12.5 mls/hr Q8H IV 12/05/24 20:00 12/07/24 03:39 12.5 MLS/HR laboratory and microbiology Laboratory Tests 12/07/24 05:03 Test 12/07/24 05:03 Range/Units Serum Glucose 123 H 74-106 mg/dL Problem List/Assessment/Plan Problem List/Assessment/Plan 11/13/24feels well, abdomen non tender, ;leukocytosis, continue, as is, repeat CT scan in 48 hours 11/15/24 UNDERWENT PERCUTANEOUS DRAINAGE OF PERICOLONIC ABSCESS, ABDOMEN NON DISTENDED, NON TENDER. WILL FOLLOW 11/16/24 feels well, hungry, abdomen non tyender, derainage purulent, will irrigate, allow po intake 11/19/24 NO ABDOMINAL PAIN, NO NAUSEA, ABDOMEN NON TENDER, PICC LINE WAS REMOVED ,WILL CHECK CBC IN AM 11/20/24 await CBC tomorrow to decide on next step, abdomen non ternder but no BM, he feels "backed Up" will get gastrografin bowel x ray. 11/21/24 patient had a few bowel movements but feels worse, although his abdomen is not tender, his WBC is climbing and his CT scan looks much worse. I gave the patient the option to go back to NPO and TPN vs an operation with a colostomy, he choses to be operated on and get a colostomy as this "may be a faster way to get better". Operation, risks and complications explained in detail/ 11/27/24 feels better, no flatus in stoma bag, stoma viable,wound with some infection at inferior aspect of infraumbilical extent, abdomen appropriately tender, will allow ice chips and sips of water, must be out iof bed q 4 hours 11/29/24 ABDOMEN NON DISTENDED, APPROPRIATELY TENDER ,STOMA VIABLE WITH LIQUID OUTPUT BUT ONLY SMALL AMOUNT OF FLATUS. PATIENT IS BELCHING , FLUID [id number] IN THE RIGHT PELVIS IS NOT ADEQUATELY DRAINED BY THE INDWELLING DRAIN, WILL REQUEST RADIOLOGIST TO ATTEMPT MORE ADEQUATE DRAINAGE UNDER CT GUIDANCE. WILL INCREASE iv FLUIDS DUE TO TACHYCARDIA AND EVIDENCE OF BOWEL DISTENSION 11/30/24 appears tachypneic, has tachycardia. abdomen non distended, stoma viable and with liquid output but without flatus.wound ok, will ask pulm. to see, to r/o need for bronchoscopy and r/o PE. the radiologist did not feel a CT guided aspiration of pelvic fluid was feasible, will have nurses irrigate drain. will get inf. ds. consult 12/01/24, IMPROVED, DC NGT START PO CLEAR LIQUIDS 12/02/24 BP and Heart Rate controlled by Beta blockade, abdomen OK,stoma viable and functioning, advance diet and activity 12/03/24 feels ok abdomen soft, non distended, wound with small skin dehiscence at inferior aspect, stoma functioning, evacuating distal colon per rectum(expected) tomorrow can be downgraded 12/04/24 doing well, afebrile, normotensive, HR increased after the Coreg dosage was halved, BP is ok, abdomen non distended, non tender, stoma viable and functioning. stable for transfer to a med-surg bed. 12/05/24 no pain,no nausea,abdomen non distended, non tender, wound with partial skin separation, will use wound vac. labs OK, low albumin. 12/06/24 skin separation of almost entire wound, needs a larger wound vac, other dunaway stable 12/07/24 afebrile, normotensive, wound vac (temporary) applied, stoma functioning. stable. Plan discussed with: Patient, Other Dietary Evaluation Review Comments: To meet at least 75% ofpt's needs, recommend TPN kcal to be increased to 1500-2000kcal range and protein to be increased to 80-90g/d. Expected Outcomes/Goals: Pt will experience a gradual wt loss at this kcal level, yet, the appropriated nutrition support of protein and kcal can enhance pt's GI perforation healing process, and help him regain normal GI functionality DANA CHOW MD Dec 07, 2024 10:07
--- NOTE | 2024-12-07 10:40 | DVHPN2 ---
Subjective The patient seen and examined at bedside. Still have some abdominal pain. 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 ([facility] [place] [employer]) Changes from previous H/P or p: No Changes General: Per HPI Objective Vitals Vital Signs Date Time Temp Pulse Resp B/P (MAP) Pulse Ox O2 Delivery O2 Flow Rate FiO2 12/07/24 10:35 106 124/64 12/07/24 10:00 97 Nasal Cannula 2.0 12/07/24 10:00 29 28 12/07/24 08:00 99.1 99.1 Intake/Output Intake and Output 12/07/24 07:00 Intake Total 1230.0 ml Output Total 3715 ml Balance -2485.0 ml Intake Oral 880 ml IV Total 350.0 ml Output Urine Total 3525 ml Stool Total 150 ml Gastric Drainage Total 30 ml Drainage Total 10 ml General Appearance: Alert, Oriented X3, Cooperative, mild distress HEENT: Atraumatic, PERRLA Lungs: Clear to auscultation, Normal air movement, Other (Nasal cannula at 4 L/min) Cardiovascular: Normal S1, Normal S2, Other (Sinus tachycardia) Abdomen: Other (Abdominal wound has dehiscence. Wound VAC placed.) Genitourinary: No Apparent Abnormalities (Hernandez catheter) Musculoskeletal: Normal sensory function, Normal motor function Neuro: Normal gait, Normal speech, Sensation intact, Cranial nerves 3-12 NL Skin: Dry, Intact Psych/Mental Status: Mental status NL, Mood NL Medications Current Medications Medications Dose Ordered Sig/Edis Route Start Time Stop Time Status Last Admin Dose Admin Acetaminophen 650 mg Q6HPRN PRN PO 11/11/24 23:45 12/03/24 09:22 650 MG Piperacillin Sod/ Tazobactam Sod 100 ml @ 25 mls/hr Q8HR IV 11/12/24 06:00 UNV Ondansetron HCl 4 mg Q4HPRN PRN IV 11/12/24 07:45 11/25/24 06:32 4 MG Pantoprazole Sodium 40 mg DAILY IV 11/13/24 10:00 12/07/24 09:25 40 MG Morphine Sulfate 2 mg Q4HPRN PRN IV 11/12/24 16:45 12/07/24 03:41 2 MG Vancomycin HCl 300 ml @ 200 mls/hr Q12H IV 11/13/24 15:00 UNV Dextrose 50 ml UD IV 11/15/24 12:00 Hydralazine HCl 10 mg Q6HP PRN IV 11/16/24 15:45 12/04/24 16:06 10 MG Fat Emulsion Intravenous 200 ml/Sodium Chloride 80 meq/ Sodium Acetate 40 meq/Potassium Chloride 40 meq/ Potassium Phosphate 22 meq/ Calcium Gluconate 2.3 meq/Magnesium Sulfate 8 meq/ Multivitamins 10 ml/Chromium/ Copper/Manganese/ Zinc 1 ml/Amino Acids/Dextrose 1,582.9462 ml @ 66 mls/hr Q24H IV 11/18/24 22:00 11/19/24 21:59 Cancel Sodium Chloride 10 ml QSHIFT@, IV 11/25/24 22:00 12/07/24 09:25 10 ML Linezolid 300 ml @ 150 mls/hr Q12HR IV 11/25/24 22:00 12/07/24 09:25 150 MLS/HR Potassium Chloride 100 ml @ 50 mls/hr Q2H IV 11/27/24 11:30 11/27/24 15:29 UNV Albumin Human 50 ml @ 100 mls/hr Q8H IV 11/29/24 07:45 Cancel Lorazepam 0.5 mg Q6HP PRN IV 11/29/24 09:00 12/07/24 00:56 0.5 MG Micafungin Sodium 100 mg/Sodium Chloride 100 ml @ 100 mls/hr DAILY IV 12/01/24 10:00 12/07/24 09:00 100 MLS/HR Enoxaparin Sodium 140 mg Q12HR SC 12/02/24 10:00 12/07/24 09:26 140 MG Ipratropium [place] 0.5 mg Q6HR NEB 12/02/24 09:00 12/07/24 06:15 0.5 MG Levalbuterol HCl 0.625 mg Q6HR NEB 12/02/24 09:00 12/07/24 06:15 0.625 MG Acetaminophen/ Hydrocodone Bitart 1 tab Q4HPRN PRN PO 12/03/24 10:00 12/03/24 15:03 1 TAB Fat Emulsion Intravenous 200 ml/Sodium Chloride 160 meq/ Potassium Acetate 20 meq/Potassium Phosphate 30 meq/ Calcium Gluconate 6 meq/Magnesium Sulfate 24 meq/ Multivitamins 10 ml/Chromium/ Copper/Manganese/ Zinc 1 ml/Amino Acids/Dextrose 1,886.7214 ml @ 78 mls/hr [id number] IV 12/03/24 22:00 12/03/24 22:00 Cancel Carvedilol 25 mg Q12HR PO 12/04/24 22:00 12/07/24 09:26 25 MG Cefepime HCl 50 ml @ 12.5 mls/hr Q8H IV 12/05/24 20:00 12/07/24 03:39 12.5 MLS/HR Laboratory Results Laboratory Tests 12/07/24 05:03 Chemistry Test 12/07/24 05:03 Calcium Level 8.1 mg/dL (8.7-10.4) L Magnesium Level 2.0 mg/dL (1.6-2.6) Urinalysis Test 11/11/24 20:50 Urine Color Yellow (Yellow) Urine Clarity Clear (Clear) Urine pH 6.0 (5.0-9.0) Urine Specific [place] 1.021 (1.001-1.035) Urine Protein 1+ (Negative) H Urine Ketones Negative (Negative) Urine Blood 2+ /uL (Negative) H Urine Nitrite Negative (Negative) Urine Bilirubin Negative (Negative) Urine Urobilinogen 3 mg/dL (Negative) H Urine Leukocyte Esterase Negative /uL (Negative) Urine RBC 1 /hpf (0 - 3) Urine Microscopic WBC 6 /HPF (0-3) H Urine Squamous Epithelial Cells None seen /hpf (<5) Urine Bacteria None seen /hpf (None Seen) Urine Mucus Few (None Seen) Urine Glucose 1+ mg/dL (Normal) H Microbiology Microbiology Date/Time Source Procedure Growth Status 12/01/24 17:30 Blood Blood Culture - Final NO GROWTH AFTER 5 DAYS OF INCUBATION. Complete 11/22/24 10:15 Abdomen Gram Stain - Final Complete 11/22/24 10:15 Abdomen Anaerobic Culture - Final Complete 11/22/24 10:15 Aerobic Culture - Final Escherichia coli Enterococcus faecium - VRE Complete 11/18/24 10:20 Voided Urine Urine Culture - Final Complete 11/15/24 13:15 Aspirate Gram Stain - Final Complete 11/15/24 13:15 Body Fluid Culture - Final Escherichia coli Complete Labs and/or images reviewed: Labs reviewed by me Assessment/Plan Assessment/Plan -severe sepsis secondary to perforated diverticulitis -obesity -hypokalemia -hyponatremia -right upper extremity DVT, repeat ultrasound reports resolution -Atelectasis Continue current management Continue IV antibiotic Continue to replace electrolyte Wound vac per surgeon Continue pain medication. Plan discussed with: Patient Date of Service: Dec 07, 2024 Billing Provider: CHARISSE CROWELL MD Common Visit Codes: [id number] INP/OBS CARE(HIGH) CHARISSE CROWELL MD Dec 07, 2024 10:40
--- NOTE | 2024-12-07 14:29 | DVHPN2 ---
Progress Note - Dictate Date Seen: Dec 07, 2024 Medical Necessity Reason Pt with a Central, PICC or Fol: Yes The following are medically ne: PICC Line vital signs Vital Sign Date Time Temp Pulse Resp B/P (MAP) Pulse Ox O2 Delivery O2 Flow Rate FiO2 12/07/24 14:00 22 96 Nasal Cannula* 4 36 12/07/24 14:00 116 12/07/24 13:00 109/55 (73) 12/07/24 12:00 99.1 99.1 Total Intake and Output 12/06/24 12/06/24 12/07/24 15:00 23:00 07:00 Intake Total 737.5 ml 492.5 ml Output Total 2225 ml 1490 ml Balance -1487.5 ml -997.5 ml medications Current Medications Medications Dose Ordered Sig/Edis Route Start Time Stop Time Status Last Admin Dose Admin Acetaminophen 650 mg Q6HPRN PRN PO 11/11/24 23:45 12/03/24 09:22 650 MG Piperacillin Sod/ Tazobactam Sod 100 ml @ 25 mls/hr Q8HR IV 11/12/24 06:00 UNV Ondansetron HCl 4 mg Q4HPRN PRN IV 11/12/24 07:45 11/25/24 06:32 4 MG Pantoprazole Sodium 40 mg DAILY IV 11/13/24 10:00 12/07/24 09:25 40 MG Morphine Sulfate 2 mg Q4HPRN PRN IV 11/12/24 16:45 12/07/24 03:41 2 MG Vancomycin HCl 300 ml @ 200 mls/hr Q12H IV 11/13/24 15:00 UNV Dextrose 50 ml UD IV 11/15/24 12:00 Hydralazine HCl 10 mg Q6HP PRN IV 11/16/24 15:45 12/04/24 16:06 10 MG Fat Emulsion Intravenous 200 ml/Sodium Chloride 80 meq/ Sodium Acetate 40 meq/Potassium Chloride 40 meq/ Potassium Phosphate 22 meq/ Calcium Gluconate 2.3 meq/Magnesium Sulfate 8 meq/ Multivitamins 10 ml/Chromium/ Copper/Manganese/ Zinc 1 ml/Amino Acids/Dextrose 1,582.9462 ml @ 66 mls/hr Q24H IV 11/18/24 22:00 11/19/24 21:59 Cancel Sodium Chloride 10 ml QSHIFT@10,22 IV 11/25/24 22:00 12/07/24 09:25 10 ML Linezolid 300 ml @ 150 mls/hr Q12HR IV 11/25/24 22:00 12/07/24 09:25 150 MLS/HR Potassium Chloride 100 ml @ 50 mls/hr Q2H IV 11/27/24 11:30 11/27/24 15:29 UNV Albumin Human 50 ml @ 100 mls/hr Q8H IV 11/29/24 07:45 Cancel Lorazepam 0.5 mg Q6HP PRN IV 11/29/24 09:00 12/07/24 00:56 0.5 MG Micafungin Sodium 100 mg/Sodium Chloride 100 ml @ 100 mls/hr DAILY IV 12/01/24 10:00 12/07/24 09:00 100 MLS/HR Enoxaparin Sodium 140 mg Q12HR SC 12/02/24 10:00 12/07/24 09:26 140 MG Ipratropium [place] 0.5 mg Q6HR NEB 12/02/24 09:00 12/07/24 11:24 0.5 MG Levalbuterol HCl 0.625 mg Q6HR NEB 12/02/24 09:00 12/07/24 11:24 0.625 MG Acetaminophen/ Hydrocodone Bitart 1 tab Q4HPRN PRN PO 12/03/24 10:00 12/03/24 15:03 1 TAB Fat Emulsion Intravenous 200 ml/Sodium Chloride 160 meq/ Potassium Acetate 20 meq/Potassium Phosphate 30 meq/ Calcium Gluconate 6 meq/Magnesium Sulfate 24 meq/ Multivitamins 10 ml/Chromium/ Copper/Manganese/ Zinc 1 ml/Amino Acids/Dextrose 1,886.7214 ml @ 78 mls/hr [id number] IV 12/03/24 22:00 12/03/24 22:00 Cancel Carvedilol 25 mg Q12HR PO 12/04/24 22:00 12/07/24 09:26 25 MG Cefepime HCl 50 ml @ 12.5 mls/hr Q8H IV 12/05/24 20:00 12/07/24 11:59 12.5 MLS/HR laboratory and microbiology Laboratory Tests 12/07/24 05:03 Test 12/07/24 05:03 Range/Units Serum Glucose 123 H 74-106 mg/dL Assessment/Plan Impression Acute hypoxemic respiratory failure Nonocclusive DVT Bowel perforation Atelectasis Patient seen and examined in JOSE ANTONIO Events Low oxygen requirements On 2 liters nasal cannula No new complaints S/p ex lap Labs and imaging reviewed Management Supplemental oxygen Titrate to maintain sats 90% or above Incentive spirometry Continue antibiotics F/u cultures Bronchodilators Recommend diuresis Monitor renal function Monitor electrolytes Supplement as needed Pain control Avoid oversedation F/u general surgery DVT prophylaxis Dietary Evaluation Review Comments: To meet at least 75% ofpt's needs, recommend TPN kcal to be increased to 1500-2000kcal range and protein to be increased to 80-90g/d. Expected Outcomes/Goals: Pt will experience a gradual wt loss at this kcal level, yet, the appropriated nutrition support of protein and kcal can enhance pt's GI perforation healing process, and help him regain normal GI functionality Plan discussed with: Patient DALJIT BATRES MD Dec 07, 2024 14:29
--- NOTE | 2024-12-07 14:38 | DVHPN2 ---
Progress Note Date Seen: Dec 07, 2024 Resident Creating Document: JULIA MARES Medical Necessity Reason Pt with a Central, PICC or Fol: Yes The following are medically ne: PICC Line Subjective Review of Systems Patient was seen today at bedside No acute complaint Patient had low-grade fever last Leukocytosis resolved H&H stable On wound VAC CT scan of the abdomen and pelvis revealed-Moderate bilateral pleural effusions with associated atelectasis. Partially visualized heart is unremarkable.Interval improvement in the loculated intrapelvic /lower abdominal collection. Moderate ascites within the right hemiabdomen and left upper abdominal quadrant with mild ascites within the remainder of the abdomen Patient was seen by surgery Objective vital signs Vital Sign Date Time Temp Pulse Resp B/P (MAP) Pulse Ox O2 Delivery O2 Flow Rate FiO2 12/07/24 14:00 22 96 Nasal Cannula* 4 36 12/07/24 14:00 116 12/07/24 13:00 109/55 (73) 12/07/24 12:00 99.1 99.1 Total Intake and Output 12/06/24 12/06/24 12/07/24 15:00 23:00 07:00 Intake Total 737.5 ml 492.5 ml Output Total 2225 ml 1490 ml Balance -1487.5 ml -997.5 ml medications Current Medications Medications Dose Ordered Sig/Edis Route Start Time Stop Time Status Last Admin Dose Admin Acetaminophen 650 mg Q6HPRN PRN PO 11/11/24 23:45 12/03/24 09:22 650 MG Piperacillin Sod/ Tazobactam Sod 100 ml @ 25 mls/hr Q8HR IV 11/12/24 06:00 UNV Ondansetron HCl 4 mg Q4HPRN PRN IV 11/12/24 07:45 11/25/24 06:32 4 MG Pantoprazole Sodium 40 mg DAILY IV 11/13/24 10:00 12/07/24 09:25 40 MG Morphine Sulfate 2 mg Q4HPRN PRN IV 11/12/24 16:45 12/07/24 03:41 2 MG Vancomycin HCl 300 ml @ 200 mls/hr Q12H IV 11/13/24 15:00 UNV Dextrose 50 ml UD IV 11/15/24 12:00 Hydralazine HCl 10 mg Q6HP PRN IV 11/16/24 15:45 12/04/24 16:06 10 MG Fat Emulsion Intravenous 200 ml/Sodium Chloride 80 meq/ Sodium Acetate 40 meq/Potassium Chloride 40 meq/ Potassium Phosphate 22 meq/ Calcium Gluconate 2.3 meq/Magnesium Sulfate 8 meq/ Multivitamins 10 ml/Chromium/ Copper/Manganese/ Zinc 1 ml/Amino Acids/Dextrose 1,582.9462 ml @ 66 mls/hr Q24H IV 11/18/24 22:00 11/19/24 21:59 Cancel Sodium Chloride 10 ml QSHIFT@10,22 IV 11/25/24 22:00 12/07/24 09:25 10 ML Linezolid 300 ml @ 150 mls/hr Q12HR IV 11/25/24 22:00 12/07/24 09:25 150 MLS/HR Potassium Chloride 100 ml @ 50 mls/hr Q2H IV 11/27/24 11:30 11/27/24 15:29 UNV Albumin Human 50 ml @ 100 mls/hr Q8H IV 11/29/24 07:45 Cancel Lorazepam 0.5 mg Q6HP PRN IV 11/29/24 09:00 12/07/24 00:56 0.5 MG Micafungin Sodium 100 mg/Sodium Chloride 100 ml @ 100 mls/hr DAILY IV 12/01/24 10:00 12/07/24 09:00 100 MLS/HR Enoxaparin Sodium 140 mg Q12HR SC 12/02/24 10:00 12/07/24 09:26 140 MG Ipratropium [place] 0.5 mg Q6HR NEB 12/02/24 09:00 12/07/24 11:24 0.5 MG Levalbuterol HCl 0.625 mg Q6HR NEB 12/02/24 09:00 12/07/24 11:24 0.625 MG Acetaminophen/ Hydrocodone Bitart 1 tab Q4HPRN PRN PO 12/03/24 10:00 12/03/24 15:03 1 TAB Fat Emulsion Intravenous 200 ml/Sodium Chloride 160 meq/ Potassium Acetate 20 meq/Potassium Phosphate 30 meq/ Calcium Gluconate 6 meq/Magnesium Sulfate 24 meq/ Multivitamins 10 ml/Chromium/ Copper/Manganese/ Zinc 1 ml/Amino Acids/Dextrose 1,886.7214 ml @ 78 mls/hr [id number] IV 12/03/24 22:00 12/03/24 22:00 Cancel Carvedilol 25 mg Q12HR PO 12/04/24 22:00 12/07/24 09:26 25 MG Cefepime HCl 50 ml @ 12.5 mls/hr Q8H IV 12/05/24 20:00 12/07/24 11:59 12.5 MLS/HR laboratory and microbiology Laboratory Tests 12/07/24 05:03 Test 12/07/24 05:03 Range/Units Serum Glucose 123 H 74-106 mg/dL Microbiology Date/Time Source Procedure Growth Status 12/01/24 17:30 Blood Blood Culture - Final NO GROWTH AFTER 5 DAYS OF INCUBATION. Complete 11/22/24 10:15 Abdomen Gram Stain - Final Complete 11/22/24 10:15 Abdomen Anaerobic Culture - Final Complete 11/22/24 10:15 Aerobic Culture - Final Escherichia coli Enterococcus faecium - VRE Complete 11/18/24 10:20 Voided Urine Urine Culture - Final Complete 11/15/24 13:15 Aspirate Gram Stain - Final Complete 11/15/24 13:15 Body Fluid Culture - Final Escherichia coli Complete Problem List/Assessment/Plan Problem List/Assessment/Plan Assessment and plan Problems(with codes): (1) perforated Diverticulitis large intestine (2) Abnormal finding on GI tract imaging (3) Abscess of sigmoid colon due to diverticulitis (4) Leukocytosis Bilateral pleural effusion Events No acute complaint Patient had low-grade fever last Leukocytosis resolved H&H stable On wound VAC CT scan of the abdomen and pelvis revealed-Moderate bilateral pleural effusions with associated atelectasis. Partially visualized heart is unremarkable.Interval improvement in the loculated intrapelvic /lower abdominal collection. Moderate ascites within the right hemiabdomen and left upper abdominal quadrant with mild ascites within the remainder of the abdomen Patient was seen by surgery Prognosis Plan Recommending pulmonary consult regarding possible was centesis or bilateral moderate pleural effusion and atelectasis Surgical input appreciated Continue regular diet as patient tolerating well Continue broad spectrum IV antibiotics Incentive spirometry On DVT prophylaxis On pantoprazole IV 40 mg daily Physical therapy as tolerate Plan discussed with Dr. Emilee Sharma , nursing staff, Total time spent on patient evaluation, chart review, assessment and plan, discussion discussion >35 minutes Plan discussed with: Patient, Other (RN) Dietary Evaluation Review Comments: To meet at least 75% ofpt's needs, recommend TPN kcal to be increased to 1500-2000kcal range and protein to be increased to 80-90g/d. Expected Outcomes/Goals: Pt will experience a gradual wt loss at this kcal level, yet, the appropriated nutrition support of protein and kcal can enhance pt's GI perforation healing process, and help him regain normal GI functionality JUILA MARES RESIDENT Dec 07, 2024 14:38
--- NOTE | 2024-12-07 20:23 | DVHPN2 ---
Progress Note - Dictate Date Seen: Dec 07, 2024 Medical Necessity Reason Pt with a Central, PICC or Fol: Yes The following are medically ne: PICC Line Subjective No new acute complaints noted. CT abdomen and pelvis showed Postsurgical changes of the colon with left lower abdominal quadrant colostomy. Interval improvement in the loculated intrapelvic /lower abdominal collection. Moderate ascites within the right hemiabdomen and left upper abdominal quadrant with mild ascites within the remainder of the abdomen. Right lower abdominal quadrant approach drainage catheter terminating over the left lower abdominal quadrant. Mild distention of proximal small bowel of the upper abdomen measuring up to 4.3 cm which may represent ileus in the setting of surgery. vital signs Vital Sign Date Time Temp Pulse Resp B/P (MAP) Pulse Ox O2 Delivery O2 Flow Rate FiO2 12/07/24 19:05 104 18 97 12/07/24 18:00 135/72 (93) 12/07/24 18:00 Nasal Cannula* 4 36 12/07/24 16:00 99.7 99.7 Total Intake and Output 12/06/24 12/06/24 12/07/24 15:00 23:00 07:00 Intake Total 737.5 ml 492.5 ml Output Total 2225 ml 1490 ml Balance -1487.5 ml -997.5 ml medications Current Medications Medications Dose Ordered Sig/Edis Route Start Time Stop Time Status Last Admin Dose Admin Acetaminophen 650 mg Q6HPRN PRN PO 11/11/24 23:45 12/03/24 09:22 650 MG Piperacillin Sod/ Tazobactam Sod 100 ml @ 25 mls/hr Q8HR IV 11/12/24 06:00 UNV Ondansetron HCl 4 mg Q4HPRN PRN IV 11/12/24 07:45 11/25/24 06:32 4 MG Pantoprazole Sodium 40 mg DAILY IV 11/13/24 10:00 12/07/24 09:25 40 MG Morphine Sulfate 2 mg Q4HPRN PRN IV 11/12/24 16:45 12/07/24 15:41 2 MG Vancomycin HCl 300 ml @ 200 mls/hr Q12H IV 11/13/24 15:00 UNV Dextrose 50 ml UD IV 11/15/24 12:00 Hydralazine HCl 10 mg Q6HP PRN IV 11/16/24 15:45 12/04/24 16:06 10 MG Fat Emulsion Intravenous 200 ml/Sodium Chloride 80 meq/ Sodium Acetate 40 meq/Potassium Chloride 40 meq/ Potassium Phosphate 22 meq/ Calcium Gluconate 2.3 meq/Magnesium Sulfate 8 meq/ Multivitamins 10 ml/Chromium/ Copper/Manganese/ Zinc 1 ml/Amino Acids/Dextrose 1,582.9462 ml @ 66 mls/hr Q24H IV 11/18/24 22:00 11/19/24 21:59 Cancel Sodium Chloride 10 ml QSHIFT@10,22 IV 11/25/24 22:00 12/07/24 09:25 10 ML Linezolid 300 ml @ 150 mls/hr Q12HR IV 11/25/24 22:00 12/07/24 09:25 150 MLS/HR Potassium Chloride 100 ml @ 50 mls/hr Q2H IV 11/27/24 11:30 11/27/24 15:29 UNV Albumin Human 50 ml @ 100 mls/hr Q8H IV 11/29/24 07:45 Cancel Lorazepam 0.5 mg Q6HP PRN IV 11/29/24 09:00 12/07/24 00:56 0.5 MG Micafungin Sodium 100 mg/Sodium Chloride 100 ml @ 100 mls/hr DAILY IV 12/01/24 10:00 12/07/24 09:00 100 MLS/HR Enoxaparin Sodium 140 mg Q12HR SC 12/02/24 10:00 12/07/24 09:26 140 MG Ipratropium [place] 0.5 mg Q6HR NEB 12/02/24 09:00 12/07/24 19:05 0.5 MG Levalbuterol HCl 0.625 mg Q6HR NEB 12/02/24 09:00 12/07/24 19:05 0.625 MG Acetaminophen/ Hydrocodone Bitart 1 tab Q4HPRN PRN PO 12/03/24 10:00 12/03/24 15:03 1 TAB Fat Emulsion Intravenous 200 ml/Sodium Chloride 160 meq/ Potassium Acetate 20 meq/Potassium Phosphate 30 meq/ Calcium Gluconate 6 meq/Magnesium Sulfate 24 meq/ Multivitamins 10 ml/Chromium/ Copper/Manganese/ Zinc 1 ml/Amino Acids/Dextrose 1,886.7214 ml @ 78 mls/hr [id number] IV 12/03/24 22:00 12/03/24 22:00 Cancel Carvedilol 25 mg Q12HR PO 12/04/24 22:00 12/07/24 09:26 25 MG Cefepime HCl 50 ml @ 12.5 mls/hr Q8H IV 12/05/24 20:00 12/07/24 20:18 12.5 MLS/HR objective General Appearance: Alert, Oriented X3, Cooperative, No acute distress obese HEENT: Atraumatic, PERRLA, EOMI, Mucous membrane moist/pink Respiratory: Clear to auscultation, Normal air movement Cardiovascular: Regular rate, Normal S1, Normal S2, No murmurs, no chest wall tenderness Abdominal: s/p abdominal surgery, has GIOVANNY drain. midline incision site looks ok. has colostomy. 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 he has a wound vac too. GIOVANNY drain shows not much drainage, nontender abdomen CT abdomen and pelvis with contrast showed Postsurgical changes of the colon with left lower abdominal quadrant colostomy. Interval improvement in the loculated intrapelvic /lower abdominal collection. Moderate ascites within the right hemiabdomen and left upper abdominal quadrant with mild ascites within the remainder of the abdomen. Right lower abdominal quadrant approach drainage catheter terminating over the left lower abdominal quadrant. Mild distention of proximal small bowel of the upper abdomen measuring up to 4.3 cm which may represent ileus in the setting of surgery. Patient has a PICC line, he still has loculated intra pelvic collection and ascites Recommend IR guided diagnostic paracentesis for fluid analysis and culture Dc Linezolid, switch to IV Daptomycin Continue IV Cefepime, Micafungin wbc normal He has had prolonged hospital stay, currently in [facility]. s/p colon resection on 11/22 s/p colostomy with output. had diverticular abscess with OR cx grew VRE Review of cultures: 11/11, Blood culture showed no growth 11/11, Urine culture showed no growth 11/12, MRSA screening came back negative 11/13, Urine culture showed no growth 11/15, Body fluid culture showed E. coli 11/18, Blood culture showed no growth 11/18, urine culture showed no growth 11/22, OR culture showed E. coli and Enterococcus faecium 11/28, Blood culture showed no growth 12/01, Blood culture preliminary showed no growth Antibiotic status: Cefepime IV [Started on 12/03 - Ongoing] Micafungin IV [Started on 12/01 - Ongoing] Linezolid IV [Started on 11/25 - Ongoing] Meropenem IV [Given on 11/29 - Ongoing] Flagyl IV Started on 11/22 - 11/29] Ceftriaxone IV [Started on 11/25 - 11/29] Prognosis guarded plan discussed with patient Thank you for consult Dietary Evaluation Review Comments: To meet at least 75% ofpt's needs, recommend TPN kcal to be increased to 1500-2000kcal range and protein to be increased to 80-90g/d. Expected Outcomes/Goals: Pt will experience a gradual wt loss at this kcal level, yet, the appropriated nutrition support of protein and kcal can enhance pt's GI perforation healing process, and help him regain normal GI functionality Plan discussed with: Patient MAKENNA STONER MD Dec 07, 2024 20:23
[2024-12-07] MEDS: DAPTOMYCIN IV SCH (22:32)
[2024-12-07] MEDS: SODIUM CHL 0.9% IV SCH (22:32)
[2024-12-08] VITALS (35 sets, daily range): BP systolic 89–186; BP diastolic 46–122; PULSE 87–118; RESP 14–34; TEMP 97.9–100.8; O2SAT 91–100
--- NOTE | 2024-12-08 11:02 | DVHPN2 ---
Progress Note Date Seen: Dec 08, 2024 Medical Necessity Reason Pt with a Central, PICC or Fol: Yes The following are medically ne: PICC Line Objective vital signs Vital Sign Date Time Temp Pulse Resp B/P (MAP) Pulse Ox O2 Delivery O2 Flow Rate FiO2 12/08/24 10:00 102 12/08/24 10:00 25 98 Nasal Cannula* 4 36 12/08/24 09:23 140/77 12/08/24 08:00 97.9 97.9 Total Intake and Output 12/07/24 12/07/24 12/08/24 15:00 23:00 07:00 Intake Total 500 ml 680 ml 550 ml Output Total 1825 ml 1700 ml Balance 500 ml -1145 ml -1150 ml medications Current Medications Medications Dose Ordered Sig/Edis Route Start Time Stop Time Status Last Admin Dose Admin Acetaminophen 650 mg Q6HPRN PRN PO 11/11/24 23:45 12/07/24 23:00 650 MG Piperacillin Sod/ Tazobactam Sod 100 ml @ 25 mls/hr Q8HR IV 11/12/24 06:00 UNV Ondansetron HCl 4 mg Q4HPRN PRN IV 11/12/24 07:45 11/25/24 06:32 4 MG Pantoprazole Sodium 40 mg DAILY IV 11/13/24 10:00 12/08/24 09:20 40 MG Morphine Sulfate 2 mg Q4HPRN PRN IV 11/12/24 16:45 12/08/24 05:33 2 MG Vancomycin HCl 300 ml @ 200 mls/hr Q12H IV 11/13/24 15:00 UNV Dextrose 50 ml UD IV 11/15/24 12:00 Hydralazine HCl 10 mg Q6HP PRN IV 11/16/24 15:45 12/04/24 16:06 10 MG Fat Emulsion Intravenous 200 ml/Sodium Chloride 80 meq/ Sodium Acetate 40 meq/Potassium Chloride 40 meq/ Potassium Phosphate 22 meq/ Calcium Gluconate 2.3 meq/Magnesium Sulfate 8 meq/ Multivitamins 10 ml/Chromium/ Copper/Manganese/ Zinc 1 ml/Amino Acids/Dextrose 1,582.9462 ml @ 66 mls/hr Q24H IV 11/18/24 22:00 11/19/24 21:59 Cancel Sodium Chloride 10 ml QSHIFT@10,22 IV 11/25/24 22:00 12/08/24 09:21 10 ML Potassium Chloride 100 ml @ 50 mls/hr Q2H IV 11/27/24 11:30 11/27/24 15:29 UNV Albumin Human 50 ml @ 100 mls/hr Q8H IV 11/29/24 07:45 Cancel Lorazepam 0.5 mg Q6HP PRN IV 11/29/24 09:00 12/08/24 00:34 0.5 MG Micafungin Sodium 100 mg/Sodium Chloride 100 ml @ 100 mls/hr DAILY IV 12/01/24 10:00 12/08/24 09:20 100 MLS/HR Enoxaparin Sodium 140 mg Q12HR SC 12/02/24 10:00 12/08/24 09:23 140 MG Ipratropium [place] 0.5 mg Q6HR NEB 12/02/24 09:00 12/08/24 06:28 0.5 MG Levalbuterol HCl 0.625 mg Q6HR NEB 12/02/24 09:00 12/08/24 06:28 0.625 MG Acetaminophen/ Hydrocodone Bitart 1 tab Q4HPRN PRN PO 12/03/24 10:00 12/03/24 15:03 1 TAB Fat Emulsion Intravenous 200 ml/Sodium Chloride 160 meq/ Potassium Acetate 20 meq/Potassium Phosphate 30 meq/ Calcium Gluconate 6 meq/Magnesium Sulfate 24 meq/ Multivitamins 10 ml/Chromium/ Copper/Manganese/ Zinc 1 ml/Amino Acids/Dextrose 1,886.7214 ml @ 78 mls/hr [id number] IV 12/03/24 22:00 12/03/24 22:00 Cancel Carvedilol 25 mg Q12HR PO 12/04/24 22:00 12/08/24 09:23 25 MG Cefepime HCl 50 ml @ 12.5 mls/hr Q8H IV 12/05/24 20:00 12/08/24 03:37 12.5 MLS/HR Daptomycin 630 mg/ Sodium Chloride 50 ml @ 100 mls/hr Q24H IV 12/07/24 23:00 12/07/24 22:32 100 MLS/HR laboratory and microbiology Laboratory Tests 12/07/24 05:03 Test 12/07/24 05:03 Range/Units Serum Glucose 123 H 74-106 mg/dL Problem List/Assessment/Plan Problem List/Assessment/Plan 11/13/24feels well, abdomen non tender, ;leukocytosis, continue, as is, repeat CT scan in 48 hours 11/15/24 UNDERWENT PERCUTANEOUS DRAINAGE OF PERICOLONIC ABSCESS, ABDOMEN NON DISTENDED, NON TENDER. WILL FOLLOW 11/16/24 feels well, hungry, abdomen non tyender, derainage purulent, will irrigate, allow po intake 11/19/24 NO ABDOMINAL PAIN, NO NAUSEA, ABDOMEN NON TENDER, PICC LINE WAS REMOVED ,WILL CHECK CBC IN AM 11/20/24 await CBC tomorrow to decide on next step, abdomen non ternder but no BM, he feels "backed Up" will get gastrografin bowel x ray. 11/21/24 patient had a few bowel movements but feels worse, although his abdomen is not tender, his WBC is climbing and his CT scan looks much worse. I gave the patient the option to go back to NPO and TPN vs an operation with a colostomy, he choses to be operated on and get a colostomy as this "may be a faster way to get better". Operation, risks and complications explained in detail/ 11/27/24 feels better, no flatus in stoma bag, stoma viable,wound with some infection at inferior aspect of infraumbilical extent, abdomen appropriately tender, will allow ice chips and sips of water, must be out iof bed q 4 hours 11/29/24 ABDOMEN NON DISTENDED, APPROPRIATELY TENDER ,STOMA VIABLE WITH LIQUID OUTPUT BUT ONLY SMALL AMOUNT OF FLATUS. PATIENT IS BELCHING , FLUID [id number] IN THE RIGHT PELVIS IS NOT ADEQUATELY DRAINED BY THE INDWELLING DRAIN, WILL REQUEST RADIOLOGIST TO ATTEMPT MORE ADEQUATE DRAINAGE UNDER CT GUIDANCE. WILL INCREASE iv FLUIDS DUE TO TACHYCARDIA AND EVIDENCE OF BOWEL DISTENSION 11/30/24 appears tachypneic, has tachycardia. abdomen non distended, stoma viable and with liquid output but without flatus.wound ok, will ask pulm. to see, to r/o need for bronchoscopy and r/o PE. the radiologist did not feel a CT guided aspiration of pelvic fluid was feasible, will have nurses irrigate drain. will get inf. ds. consult 12/01/24, IMPROVED, DC NGT START PO CLEAR LIQUIDS 12/02/24 BP and Heart Rate controlled by Beta blockade, abdomen OK,stoma viable and functioning, advance diet and activity 12/03/24 feels ok abdomen soft, non distended, wound with small skin dehiscence at inferior aspect, stoma functioning, evacuating distal colon per rectum(expected) tomorrow can be downgraded 12/04/24 doing well, afebrile, normotensive, HR increased after the Coreg dosage was halved, BP is ok, abdomen non distended, non tender, stoma viable and functioning. stable for transfer to a med-surg bed. 12/05/24 no pain,no nausea,abdomen non distended, non tender, wound with partial skin separation, will use wound vac. labs OK, low albumin. 12/06/24 skin separation of almost entire wound, needs a larger wound vac, other dunaway stable 12/07/24 afebrile, normotensive, wound vac (temporary) applied, stoma functioning. stable. 12/08/24 COMFORTABLE, TOLERATING REGULAR DIET, STOMA VIABLE AND FUNCTIONING, ABDOMEN SOFT AND NON TENDER. AFEBRILE, WBC NL. FROM SURGICAL POINT OF VIEW HE IS CLEARED TO BE DISCHARGED Plan discussed with: Patient, Other Dietary Evaluation Review Comments: To meet at least 75% ofpt's needs, recommend TPN kcal to be increased to 1500-2000kcal range and protein to be increased to 80-90g/d. Expected Outcomes/Goals: Pt will experience a gradual wt loss at this kcal level, yet, the appropriated nutrition support of protein and kcal can enhance pt's GI perforation healing process, and help him regain normal GI functionality DANA CHOW MD Dec 08, 2024 11:02
--- NOTE | 2024-12-08 11:42 | DVHPN2 ---
Progress Note Date Seen: Dec 08, 2024 Resident Creating Document: JULIA MARES RESIDENT Medical Necessity Reason Pt with a Central, PICC or Fol: Yes The following are medically ne: PICC Line Subjective Review of Systems Patient was seen today at bed Had low-grade fever overnight Patient was seen by infectious disease, change linezolid to daptomycin Infectious diseasen Recommend IR guided diagnostic paracentesis for fluid analysis and culture of loculated intra pelvic collection and ascites H&H stable Leukocytosis resolved Objective vital signs Vital Sign Date Time Temp Pulse Resp B/P (MAP) Pulse Ox O2 Delivery O2 Flow Rate FiO2 12/08/24 11:21 99 137/70 12/08/24 11:18 16 100 12/08/24 11:12 Nasal Cannula 2.0 12/08/24 11:12 28 12/08/24 08:00 97.9 97.9 Total Intake and Output 12/07/24 12/07/24 12/08/24 15:00 23:00 07:00 Intake Total 500 ml 680 ml 550 ml Output Total 1825 ml 1700 ml Balance 500 ml -1145 ml -1150 ml medications Current Medications Medications Dose Ordered Sig/Edis Route Start Time Stop Time Status Last Admin Dose Admin Acetaminophen 650 mg Q6HPRN PRN PO 11/11/24 23:45 12/07/24 23:00 650 MG Piperacillin Sod/ Tazobactam Sod 100 ml @ 25 mls/hr Q8HR IV 11/12/24 06:00 UNV Ondansetron HCl 4 mg Q4HPRN PRN IV 11/12/24 07:45 11/25/24 06:32 4 MG Pantoprazole Sodium 40 mg DAILY IV 11/13/24 10:00 12/08/24 09:20 40 MG Morphine Sulfate 2 mg Q4HPRN PRN IV 11/12/24 16:45 12/08/24 05:33 2 MG Vancomycin HCl 300 ml @ 200 mls/hr Q12H IV 11/13/24 15:00 UNV Dextrose 50 ml UD IV 11/15/24 12:00 Hydralazine HCl 10 mg Q6HP PRN IV 11/16/24 15:45 12/04/24 16:06 10 MG Fat Emulsion Intravenous 200 ml/Sodium Chloride 80 meq/ Sodium Acetate 40 meq/Potassium Chloride 40 meq/ Potassium Phosphate 22 meq/ Calcium Gluconate 2.3 meq/Magnesium Sulfate 8 meq/ Multivitamins 10 ml/Chromium/ Copper/Manganese/ Zinc 1 ml/Amino Acids/Dextrose 1,582.9462 ml @ 66 mls/hr Q24H IV 11/18/24 22:00 11/19/24 21:59 Cancel Sodium Chloride 10 ml QSHIFT@10,22 IV 11/25/24 22:00 12/08/24 09:21 10 ML Potassium Chloride 100 ml @ 50 mls/hr Q2H IV 11/27/24 11:30 11/27/24 15:29 UNV Albumin Human 50 ml @ 100 mls/hr Q8H IV 11/29/24 07:45 Cancel Lorazepam 0.5 mg Q6HP PRN IV 11/29/24 09:00 12/08/24 00:34 0.5 MG Micafungin Sodium 100 mg/Sodium Chloride 100 ml @ 100 mls/hr DAILY IV 12/01/24 10:00 12/08/24 09:20 100 MLS/HR Enoxaparin Sodium 140 mg Q12HR SC 12/02/24 10:00 12/08/24 09:23 140 MG Ipratropium [place] 0.5 mg Q6HR NEB 12/02/24 09:00 12/08/24 11:12 0.5 MG Levalbuterol HCl 0.625 mg Q6HR NEB 12/02/24 09:00 12/08/24 11:12 0.625 MG Acetaminophen/ Hydrocodone Bitart 1 tab Q4HPRN PRN PO 12/03/24 10:00 12/03/24 15:03 1 TAB Fat Emulsion Intravenous 200 ml/Sodium Chloride 160 meq/ Potassium Acetate 20 meq/Potassium Phosphate 30 meq/ Calcium Gluconate 6 meq/Magnesium Sulfate 24 meq/ Multivitamins 10 ml/Chromium/ Copper/Manganese/ Zinc 1 ml/Amino Acids/Dextrose 1,886.7214 ml @ 78 mls/hr [id number] IV 12/03/24 22:00 12/03/24 22:00 Cancel Carvedilol 25 mg Q12HR PO 12/04/24 22:00 12/08/24 09:23 25 MG Cefepime HCl 50 ml @ 12.5 mls/hr Q8H IV 12/05/24 20:00 12/08/24 11:20 12.5 MLS/HR Daptomycin 630 mg/ Sodium Chloride 50 ml @ 100 mls/hr Q24H IV 12/07/24 23:00 12/07/24 22:32 100 MLS/HR laboratory and microbiology Laboratory Tests 12/07/24 05:03 Test 12/07/24 05:03 Range/Units Serum Glucose 123 H 74-106 mg/dL Microbiology Date/Time Source Procedure Growth Status 12/01/24 17:30 Blood Blood Culture - Final NO GROWTH AFTER 5 DAYS OF INCUBATION. Complete 11/22/24 10:15 Abdomen Gram Stain - Final Complete 11/22/24 10:15 Abdomen Anaerobic Culture - Final Complete 11/22/24 10:15 Aerobic Culture - Final Escherichia coli Enterococcus faecium - VRE Complete 11/18/24 10:20 Voided Urine Urine Culture - Final Complete 11/15/24 13:15 Aspirate Gram Stain - Final Complete 11/15/24 13:15 Body Fluid Culture - Final Escherichia coli Complete Problem List/Assessment/Plan Problem List/Assessment/Plan Assessment and plan Problems(with codes): (1) perforated Diverticulitis large intestine (2) Abnormal finding on GI tract imaging (3) Abscess of sigmoid colon due to diverticulitis (4) Leukocytosis Bilateral pleural effusion Events Had low-grade fever overnight Patient was seen by infectious disease, change linezolid to daptomycin Infectious diseasen Recommend IR guided diagnostic paracentesis for fluid analysis and culture of loculated intra pelvic collection and ascites H&H stable Leukocytosis resolved Prognosis Plan Infectious diseasen Recommend IR guided diagnostic paracentesis for fluid analysis and culture of loculated intra pelvic collection and ascites Recommending pulmonary consult regarding possible was centesis or bilateral moderate pleural effusion and atelectasis Surgical input appreciated Continue regular diet as patient tolerating well Continue broad spectrum IV antibiotics Incentive spirometry On DVT prophylaxis On pantoprazole IV 40 mg daily Physical therapy as tolerate Plan discussed with Dr. Emilee Sharma , nursing staff, Total time spent on patient evaluation, chart review, assessment and plan, discussion discussion >35 minutes Plan discussed with: Patient Dietary Evaluation Review Comments: To meet at least 75% ofpt's needs, recommend TPN kcal to be increased to 1500-2000kcal range and protein to be increased to 80-90g/d. Expected Outcomes/Goals: Pt will experience a gradual wt loss at this kcal level, yet, the appropriated nutrition support of protein and kcal can enhance pt's GI perforation healing process, and help him regain normal GI functionality JUILA MARSE RESIDENT Dec 08, 2024 11:42
--- NOTE | 2024-12-08 22:33 | DVHPN2 ---
Subjective The patient seen and examined at bedside. Still have some abdominal pain. 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) Changes from previous H/P or p: No Changes General: Per HPI Objective Vitals Vital Signs Date Time Temp Pulse Resp B/P (MAP) Pulse Ox O2 Delivery O2 Flow Rate FiO2 12/08/24 21:10 115 21 143/86 12/08/24 20:02 97 Nasal Cannula* 4 36 12/08/24 20:00 98.9 98.9 Intake/Output Intake and Output 12/08/24 07:00 Intake Total 1730 ml Output Total 3525 ml Balance -1795 ml Intake Oral 830 ml IV Total 900 ml Output Urine Total 3225 ml Stool Total 300 ml General Appearance: Alert, Oriented X3, Cooperative, mild distress HEENT: Atraumatic, PERRLA Lungs: Clear to auscultation, Normal air movement, Other (Nasal cannula at 4 L/min) Cardiovascular: Normal S1, Normal S2, Other (Sinus tachycardia) Abdomen: Other (Abdominal wound has dehiscence. Wound VAC placed.) Genitourinary: No Apparent Abnormalities (Hernandez catheter) Musculoskeletal: Normal sensory function, Normal motor function Neuro: Normal gait, Normal speech, Sensation intact, Cranial nerves 3-12 NL Skin: Dry, Intact Psych/Mental Status: Mental status NL, Mood NL Medications Current Medications Medications Dose Ordered Sig/Edis Route Start Time Stop Time Status Last Admin Dose Admin Acetaminophen 650 mg Q6HPRN PRN PO 11/11/24 23:45 12/07/24 23:00 650 MG Piperacillin Sod/ Tazobactam Sod 100 ml @ 25 mls/hr Q8HR IV 11/12/24 06:00 UNV Ondansetron HCl 4 mg Q4HPRN PRN IV 11/12/24 07:45 11/25/24 06:32 4 MG Pantoprazole Sodium 40 mg DAILY IV 11/13/24 10:00 12/08/24 09:20 40 MG Morphine Sulfate 2 mg Q4HPRN PRN IV 11/12/24 16:45 12/08/24 20:40 2 MG Vancomycin HCl 300 ml @ 200 mls/hr Q12H IV 11/13/24 15:00 UNV Dextrose 50 ml UD IV 11/15/24 12:00 Hydralazine HCl 10 mg Q6HP PRN IV 11/16/24 15:45 12/04/24 16:06 10 MG Fat Emulsion Intravenous 200 ml/Sodium Chloride 80 meq/ Sodium Acetate 40 meq/Potassium Chloride 40 meq/ Potassium Phosphate 22 meq/ Calcium Gluconate 2.3 meq/Magnesium Sulfate 8 meq/ Multivitamins 10 ml/Chromium/ Copper/Manganese/ Zinc 1 ml/Amino Acids/Dextrose 1,582.9462 ml @ 66 mls/hr Q24H IV 11/18/24 22:00 11/19/24 21:59 Cancel Sodium Chloride 10 ml QSHIFT@10,22 IV 11/25/24 22:00 12/08/24 09:21 10 ML Potassium Chloride 100 ml @ 50 mls/hr Q2H IV 11/27/24 11:30 11/27/24 15:29 UNV Albumin Human 50 ml @ 100 mls/hr Q8H IV 11/29/24 07:45 Cancel Lorazepam 0.5 mg Q6HP PRN IV 11/29/24 09:00 12/08/24 00:34 0.5 MG Micafungin Sodium 100 mg/Sodium Chloride 100 ml @ 100 mls/hr DAILY IV 12/01/24 10:00 12/08/24 09:20 100 MLS/HR Enoxaparin Sodium 140 mg Q12HR SC 12/02/24 10:00 12/08/24 09:23 140 MG Ipratropium [place] 0.5 mg Q6HR NEB 12/02/24 09:00 12/08/24 18:37 0.5 MG Levalbuterol HCl 0.625 mg Q6HR NEB 12/02/24 09:00 12/08/24 18:37 0.625 MG Acetaminophen/ Hydrocodone Bitart 1 tab Q4HPRN PRN PO 12/03/24 10:00 12/03/24 15:03 1 TAB Fat Emulsion Intravenous 200 ml/Sodium Chloride 160 meq/ Potassium Acetate 20 meq/Potassium Phosphate 30 meq/ Calcium Gluconate 6 meq/Magnesium Sulfate 24 meq/ Multivitamins 10 ml/Chromium/ Copper/Manganese/ Zinc 1 ml/Amino Acids/Dextrose 1,886.7214 ml @ 78 mls/hr [id number] IV 12/03/24 22:00 12/03/24 22:00 Cancel Carvedilol 25 mg Q12HR PO 12/04/24 22:00 12/08/24 09:23 25 MG Cefepime HCl 50 ml @ 12.5 mls/hr Q8H IV 12/05/24 20:00 12/08/24 20:40 12.5 MLS/HR Daptomycin 630 mg/ Sodium Chloride 50 ml @ 100 mls/hr Q24H IV 12/07/24 23:00 12/07/24 22:32 100 MLS/HR Laboratory Results Laboratory Tests 12/07/24 05:03 Urinalysis Test 11/11/24 20:50 Urine Color Yellow (Yellow) Urine Clarity Clear (Clear) Urine pH 6.0 (5.0-9.0) Urine Specific [place] 1.021 (1.001-1.035) Urine Protein 1+ (Negative) H Urine Ketones Negative (Negative) Urine Blood 2+ /uL (Negative) H Urine Nitrite Negative (Negative) Urine Bilirubin Negative (Negative) Urine Urobilinogen 3 mg/dL (Negative) H Urine Leukocyte Esterase Negative /uL (Negative) Urine RBC 1 /hpf (0 - 3) Urine Microscopic WBC 6 /HPF (0-3) H Urine Squamous Epithelial Cells None seen /hpf (<5) Urine Bacteria None seen /hpf (None Seen) Urine Mucus Few (None Seen) Urine Glucose 1+ mg/dL (Normal) H Microbiology Microbiology Date/Time Source Procedure Growth Status 12/01/24 17:30 Blood Blood Culture - Final NO GROWTH AFTER 5 DAYS OF INCUBATION. Complete 11/22/24 10:15 Abdomen Gram Stain - Final Complete 11/22/24 10:15 Abdomen Anaerobic Culture - Final Complete 11/22/24 10:15 Aerobic Culture - Final Escherichia coli Enterococcus faecium - VRE Complete 11/18/24 10:20 Voided Urine Urine Culture - Final Complete 11/15/24 13:15 Aspirate Gram Stain - Final Complete 11/15/24 13:15 Body Fluid Culture - Final Escherichia coli Complete Labs and/or images reviewed: Labs reviewed by me Assessment/Plan Assessment/Plan -severe sepsis secondary to perforated diverticulitis -obesity -hypokalemia -hyponatremia -right upper extremity DVT, repeat ultrasound reports resolution -Atelectasis Continue current management Continue IV antibiotic Continue to replace electrolyte Wound vac per surgeon Per surgeon, patient can be d/c. Will DW case technician regarding to wound vac set up at home. Still waiting for US paracentesis. Continue pain medication. Plan discussed with: Patient Date of Service: Dec 08, 2024 Billing Provider: CHARISSE CROWELL MD Common Visit Codes: [id number] INP/OBS CARE(HIGH) CHARISSE CROWELL MD Dec 08, 2024 22:33
--- NOTE | 2024-12-08 23:57 | DVHPN2 ---
Progress Note - Dictate Date Seen: Dec 08, 2024 Medical Necessity Reason Pt with a Central, PICC or Fol: Yes The following are medically ne: PICC Line Subjective Patient seen and examined at bedside. Remains on supplemental oxygen Overnight events reviewed. vital signs Vital Sign Date Time Temp Pulse Resp B/P (MAP) Pulse Ox O2 Delivery O2 Flow Rate FiO2 12/08/24 22:32 113 142/78 12/08/24 21:10 21 12/08/24 20:02 97 Nasal Cannula* 4 36 12/08/24 20:00 98.9 98.9 Total Intake and Output 12/07/24 12/07/24 12/08/24 15:00 23:00 07:00 Intake Total 500 ml 680 ml 550 ml Output Total 1825 ml 1700 ml Balance 500 ml -1145 ml -1150 ml medications Current Medications Medications Dose Ordered Sig/Edis Route Start Time Stop Time Status Last Admin Dose Admin Acetaminophen 650 mg Q6HPRN PRN PO 11/11/24 23:45 12/07/24 23:00 650 MG Piperacillin Sod/ Tazobactam Sod 100 ml @ 25 mls/hr Q8HR IV 11/12/24 06:00 UNV Ondansetron HCl 4 mg Q4HPRN PRN IV 11/12/24 07:45 11/25/24 06:32 4 MG Pantoprazole Sodium 40 mg DAILY IV 11/13/24 10:00 12/08/24 09:20 40 MG Morphine Sulfate 2 mg Q4HPRN PRN IV 11/12/24 16:45 12/08/24 20:40 2 MG Vancomycin HCl 300 ml @ 200 mls/hr Q12H IV 11/13/24 15:00 UNV Dextrose 50 ml UD IV 11/15/24 12:00 Hydralazine HCl 10 mg Q6HP PRN IV 11/16/24 15:45 12/04/24 16:06 10 MG Fat Emulsion Intravenous 200 ml/Sodium Chloride 80 meq/ Sodium Acetate 40 meq/Potassium Chloride 40 meq/ Potassium Phosphate 22 meq/ Calcium Gluconate 2.3 meq/Magnesium Sulfate 8 meq/ Multivitamins 10 ml/Chromium/ Copper/Manganese/ Zinc 1 ml/Amino Acids/Dextrose 1,582.9462 ml @ 66 mls/hr Q24H IV 11/18/24 22:00 11/19/24 21:59 Cancel Sodium Chloride 10 ml QSHIFT@10,22 IV 11/25/24 22:00 12/08/24 22:32 10 ML Potassium Chloride 100 ml @ 50 mls/hr Q2H IV 11/27/24 11:30 11/27/24 15:29 UNV Albumin Human 50 ml @ 100 mls/hr Q8H IV 11/29/24 07:45 Cancel Lorazepam 0.5 mg Q6HP PRN IV 11/29/24 09:00 12/08/24 00:34 0.5 MG Micafungin Sodium 100 mg/Sodium Chloride 100 ml @ 100 mls/hr DAILY IV 12/01/24 10:00 12/08/24 09:20 100 MLS/HR Enoxaparin Sodium 140 mg Q12HR SC 12/02/24 10:00 12/08/24 22:31 140 MG Ipratropium [place] 0.5 mg Q6HR NEB 12/02/24 09:00 12/08/24 18:37 0.5 MG Levalbuterol HCl 0.625 mg Q6HR NEB 12/02/24 09:00 12/08/24 18:37 0.625 MG Acetaminophen/ Hydrocodone Bitart 1 tab Q4HPRN PRN PO 12/03/24 10:00 12/08/24 22:45 1 TAB Fat Emulsion Intravenous 200 ml/Sodium Chloride 160 meq/ Potassium Acetate 20 meq/Potassium Phosphate 30 meq/ Calcium Gluconate 6 meq/Magnesium Sulfate 24 meq/ Multivitamins 10 ml/Chromium/ Copper/Manganese/ Zinc 1 ml/Amino Acids/Dextrose 1,886.7214 ml @ 78 mls/hr [id number] IV 12/03/24 22:00 12/03/24 22:00 Cancel Carvedilol 25 mg Q12HR PO 12/04/24 22:00 12/08/24 22:32 25 MG Cefepime HCl 50 ml @ 12.5 mls/hr Q8H IV 12/05/24 20:00 12/08/24 20:40 12.5 MLS/HR Daptomycin 630 mg/ Sodium Chloride 50 ml @ 100 mls/hr Q24H IV 12/07/24 23:00 12/08/24 22:33 100 MLS/HR objective Gen.: Patient lying in bed in no apparent distress. On supplemental oxygen. Head: Normocephalic, atraumatic. Eyes: EOMI/PERRLA. Ears: Normal hearing. Normal anatomy. Neck/trachea: Trachea midline, supple. Nose: Normal external anatomy. Mouth: Moist mucous membranes. Chest: Decreased air entry bilaterally. No wheezing or rhonchi. Cardiovascular: Positive S1, positive S2. Regular rate and rhythm. Abdomen: Positive bowel sounds in all 4 quadrants. Soft, non-tender, non- distended. : Deferred. Rectal: Deferred. Skin: Warm, dry. Intact. Extremities: 2+ radial pulses bilaterally. No lower extremity edema. Neuro: Awake, alert, oriented x3. No gross motor or sensory deficits. Cranial nerves II through XII intact. Gait not assessed. laboratory and microbiology Laboratory Tests 12/07/24 05:03 Test 12/07/24 05:03 Range/Units Serum Glucose 123 H 74-106 mg/dL Assessment/Plan Impression: Acute hypoxemic respiratory failure Dependence on supplemental oxygen Nonocclusive DVT Bowel perforation, s/p colostomy Atelectasis Events: Low oxygen requirements On 3 liters nasal cannula Taper O2 as tolerated No new complaints Continue antibiotics Incentive spirometry for atelectasis. Pain control Avoid oversedation S/p ex lap Surgery recs appreciated Colostomy care. Wound VAC in place. Labs and imaging reviewed Rest of plan as noted below Plan: Supplemental oxygen Titrate to maintain sats above 92% Incentive spirometry Continue antibiotics F/u cultures Bronchodilators Recommend diuresis Monitor renal function Monitor electrolytes Supplement as needed Pain control Avoid oversedation F/u general surgery DVT prophylaxis Prognosis: Guarded given patient's multiple co-morbidities. Rest of plan per hospitalist and other consultants. Thank you Dr. Payne for allowing me to participate in this patient's care. Further recommendations will depend on the patient's clinical course. Please do not hesitate to contact me if you have any questions or concerns. This medical document was created using an electronic medical record system with [employer] dictation system. Although these documentations are being carefully reviewed, there may still be some phonetic and typographical changes. The errors are purely typographical, due to imperfection on the software program, and do not reflect any compromise in the patient's medical care. Dietary Evaluation Review Comments: To meet at least 75% ofpt's needs, recommend TPN kcal to be increased to 1500-2000kcal range and protein to be increased to 80-90g/d. Expected Outcomes/Goals: Pt will experience a gradual wt loss at this kcal level, yet, the appropriated nutrition support of protein and kcal can enhance pt's GI perforation healing process, and help him regain normal GI functionality Plan discussed with: Patient, Other (GUILLERMO Mendoza) LADI MON MD Dec 08, 2024 23:57
[2024-12-09] VITALS (33 sets, daily range): BP systolic 108–191; BP diastolic 55–129; PULSE 94–115; RESP 14–29; TEMP 98.2–99.5; O2SAT 92–100
--- NOTE | 2024-12-09 09:34 | DVHPN2 ---
Subjective Date Seen: Dec 09, 2024 Post op day Post op day: 17 Nursing reports: No new complaints General: Normal HNT: Normal Cardiovascular: Normal Respiratory: Normal Gastrointestinal: Abdominal Pain Musculoskeletal: Normal Objective Vitals Vital Sign Date Time Temp Pulse Resp B/P (MAP) Pulse Ox O2 Delivery O2 Flow Rate FiO2 12/09/24 09:21 118 169/121 12/09/24 08:00 99.1 28 95 99.1 12/09/24 08:00 Nasal Cannula* 4 36 Total Intake and Output 12/08/24 12/08/24 12/09/24 15:00 23:00 07:00 Intake Total 150 ml 680 ml 600 ml Output Total 1450 ml 2125 ml Balance 150 ml -770 ml -1525 ml Medications Current Medications Medications Dose Ordered Sig/Edis Route Start Time Stop Time Status Last Admin Dose Admin Acetaminophen 650 mg Q6HPRN PRN PO 11/11/24 23:45 12/07/24 23:00 650 MG Piperacillin Sod/ Tazobactam Sod 100 ml @ 25 mls/hr Q8HR IV 11/12/24 06:00 UNV Ondansetron HCl 4 mg Q4HPRN PRN IV 11/12/24 07:45 11/25/24 06:32 4 MG Pantoprazole Sodium 40 mg DAILY IV 11/13/24 10:00 12/09/24 09:20 40 MG Morphine Sulfate 2 mg Q4HPRN PRN IV 11/12/24 16:45 12/08/24 20:40 2 MG Vancomycin HCl 300 ml @ 200 mls/hr Q12H IV 11/13/24 15:00 UNV Dextrose 50 ml UD IV 11/15/24 12:00 Hydralazine HCl 10 mg Q6HP PRN IV 11/16/24 15:45 12/04/24 16:06 10 MG Fat Emulsion Intravenous 200 ml/Sodium Chloride 80 meq/ Sodium Acetate 40 meq/Potassium Chloride 40 meq/ Potassium Phosphate 22 meq/ Calcium Gluconate 2.3 meq/Magnesium Sulfate 8 meq/ Multivitamins 10 ml/Chromium/ Copper/Manganese/ Zinc 1 ml/Amino Acids/Dextrose 1,582.9462 ml @ 66 mls/hr Q24H IV 11/18/24 22:00 11/19/24 21:59 Cancel Sodium Chloride 10 ml QSHIFT@10,22 IV 11/25/24 22:00 12/09/24 09:21 10 ML Potassium Chloride 100 ml @ 50 mls/hr Q2H IV 11/27/24 11:30 11/27/24 15:29 UNV Albumin Human 50 ml @ 100 mls/hr Q8H IV 11/29/24 07:45 Cancel Lorazepam 0.5 mg Q6HP PRN IV 11/29/24 09:00 12/09/24 00:11 0.5 MG Micafungin Sodium 100 mg/Sodium Chloride 100 ml @ 100 mls/hr DAILY IV 12/01/24 10:00 12/09/24 09:21 100 MLS/HR Enoxaparin Sodium 140 mg Q12HR SC 12/02/24 10:00 12/09/24 09:21 140 MG Ipratropium [place] 0.5 mg Q6HR NEB 12/02/24 09:00 12/09/24 06:15 0.5 MG Levalbuterol HCl 0.625 mg Q6HR NEB 12/02/24 09:00 12/09/24 06:15 0.625 MG Acetaminophen/ Hydrocodone Bitart 1 tab Q4HPRN PRN PO 12/03/24 10:00 12/09/24 07:36 1 TAB Fat Emulsion Intravenous 200 ml/Sodium Chloride 160 meq/ Potassium Acetate 20 meq/Potassium Phosphate 30 meq/ Calcium Gluconate 6 meq/Magnesium Sulfate 24 meq/ Multivitamins 10 ml/Chromium/ Copper/Manganese/ Zinc 1 ml/Amino Acids/Dextrose 1,886.7214 ml @ 78 mls/hr [id number] IV 12/03/24 22:00 12/03/24 22:00 Cancel Carvedilol 25 mg Q12HR PO 12/04/24 22:00 12/09/24 09:21 25 MG Cefepime HCl 50 ml @ 12.5 mls/hr Q8H IV 12/05/24 20:00 12/09/24 04:17 12.5 MLS/HR Daptomycin 630 mg/ Sodium Chloride 50 ml @ 100 mls/hr Q24H IV 12/07/24 23:00 12/08/24 22:33 100 MLS/HR General: Normal, Well developed, Obese Head/Eyes: Normal Neck: Normal Lungs: Normal Cardiovascular: Normal Abdominal: Soft Skin: Other (abdominal wound) Labs and Microbiology Laboratory Tests 12/07/24 05:03 Test 12/07/24 05:03 Range/Units Serum Glucose 123 H 74-106 mg/dL Ass/Plan Labs and/or images reviewed: Labs reviewed by me Problem List Assessment and plan Problems(with codes): (1) perforated Diverticulitis large intestine (2) Abnormal finding on GI tract imaging (3) Abscess of sigmoid colon due to diverticulitis (4) Leukocytosis Bilateral pleural effusion Events Had low-grade fever overnight Patient was seen by infectious disease, change linezolid to daptomycin Infectious diseasen Recommend IR guided diagnostic paracentesis for fluid analysis and culture of loculated intra pelvic collection and ascites H&H stable Leukocytosis resolved Prognosis Plan Infectious diseasen Recommend IR guided diagnostic paracentesis for fluid analysis and culture of loculated intra pelvic collection and ascites Recommending pulmonary consult regarding possible was centesis or bilateral moderate pleural effusion and atelectasis Surgical input appreciated Continue regular diet as patient tolerating well Continue broad spectrum IV antibiotics Incentive spirometry On DVT prophylaxis On pantoprazole IV 40 mg daily Physical therapy as tolerate Plan discussed with Dr. Emilee Sharma , nursing staff, Total time spent on patient evaluation, chart review, assessment and plan, discussion discussion >35 minutes Assessment/Plan 11/24/24 s/p * Exploratory laparotomy. * Segmental colon resection. * Descending colon colostomy POD#2 patient complaint of abdominal pain with movement near abdominal wound patient complaint of NG tube to uncomfortable to move with NG tube in place abdomen soft, non distended, appropitely tender hemoglobin 7.2 WBC elevated GIOVANNY with serous sanguinous fluid about 60cc per Nurse 450 output over night stoma ok, No gas Plan: Keep patient in ICU do not Down grade Discontinue NGT (strict NPO) GIOVANNY to Bulb suction 1 unit packed cells today Physical therapy Plan discussed with Dr. Art and agrees 11/26/24 s/p * Exploratory laparotomy. * Segmental colon resection. * Descending colon colostomy POD#4 patient states feels better today , no belching feels bubles in his gut no gas in bag, stoma ok wound with purulent drainage , removed candace for wound drainage abdomen soft, non distended Plan: keep patient NPO wound open , use ABD pad loose over wound patient to ambulate around the unit GIOVANNY bulb to suction continue with IV antibiotics and hydration 12/10/24 s/p * Exploratory laparotomy. * Segmental colon resection. * Descending colon colostomy patient doing well , no new complaints tolerating diet denies nausea, vomiting abdomen soft, non distended, non tender wound vac with minimal drainage continue current treatment reduce use of narcotics ok to downgrade Prognosis: Good Plan discussed with patient, Dr. art Visit Coding Surgery Date of Service if different f: Dec 09, 2024 Billing Provider: DANA ART MD Surgery Visit Codes: [id number] INP/OBS CARE(HIGH) ASHLEY DUONG NP Dec 09, 2024 09:34
--- NOTE | 2024-12-09 13:32 | DVHPN2 ---
Subjective The patient seen and examined at bedside. Still have some abdominal pain. 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) Changes from previous H/P or p: No Changes General: Per HPI Objective Vitals Vital Signs Date Time Temp Pulse Resp B/P (MAP) Pulse Ox O2 Delivery O2 Flow Rate FiO2 12/09/24 12:04 94 24 100 12/09/24 12:00 Nasal Cannula* 4 36 12/09/24 12:00 98.8 157/79 (105) 98.8 Intake/Output Intake and Output 12/09/24 07:00 Intake Total 1430 ml Output Total 3575 ml Balance -2145 ml Intake Oral 930 ml IV Total 500 ml Output Urine Total 3350 ml Stool Total 225 ml General Appearance: Alert, Oriented X3, Cooperative, mild distress HEENT: Atraumatic, PERRLA Lungs: Clear to auscultation, Normal air movement, Other (Nasal cannula at 4 L/min) Cardiovascular: Normal S1, Normal S2, Other (Sinus tachycardia) Abdomen: Other (Abdominal wound has dehiscence. Wound VAC placed.) Genitourinary: No Apparent Abnormalities (Hernandez catheter) Musculoskeletal: Normal sensory function, Normal motor function Neuro: Normal gait, Normal speech, Sensation intact, Cranial nerves 3-12 NL Skin: Dry, Intact Psych/Mental Status: Mental status NL, Mood NL Medications Current Medications Medications Dose Ordered Sig/Edis Route Start Time Stop Time Status Last Admin Dose Admin Acetaminophen 650 mg Q6HPRN PRN PO 11/11/24 23:45 12/07/24 23:00 650 MG Piperacillin Sod/ Tazobactam Sod 100 ml @ 25 mls/hr Q8HR IV 11/12/24 06:00 UNV Ondansetron HCl 4 mg Q4HPRN PRN IV 11/12/24 07:45 11/25/24 06:32 4 MG Pantoprazole Sodium 40 mg DAILY IV 11/13/24 10:00 12/09/24 09:20 40 MG Morphine Sulfate 2 mg Q4HPRN PRN IV 11/12/24 16:45 12/08/24 20:40 2 MG Vancomycin HCl 300 ml @ 200 mls/hr Q12H IV 11/13/24 15:00 UNV Dextrose 50 ml UD IV 11/15/24 12:00 Hydralazine HCl 10 mg Q6HP PRN IV 11/16/24 15:45 12/04/24 16:06 10 MG Fat Emulsion Intravenous 200 ml/Sodium Chloride 80 meq/ Sodium Acetate 40 meq/Potassium Chloride 40 meq/ Potassium Phosphate 22 meq/ Calcium Gluconate 2.3 meq/Magnesium Sulfate 8 meq/ Multivitamins 10 ml/Chromium/ Copper/Manganese/ Zinc 1 ml/Amino Acids/Dextrose 1,582.9462 ml @ 66 mls/hr Q24H IV 11/18/24 22:00 11/19/24 21:59 Cancel Sodium Chloride 10 ml QSHIFT@10,22 IV 11/25/24 22:00 12/09/24 09:21 10 ML Potassium Chloride 100 ml @ 50 mls/hr Q2H IV 11/27/24 11:30 11/27/24 15:29 UNV Albumin Human 50 ml @ 100 mls/hr Q8H IV 11/29/24 07:45 Cancel Lorazepam 0.5 mg Q6HP PRN IV 11/29/24 09:00 12/09/24 00:11 0.5 MG Micafungin Sodium 100 mg/Sodium Chloride 100 ml @ 100 mls/hr DAILY IV 12/01/24 10:00 12/09/24 09:21 100 MLS/HR Enoxaparin Sodium 140 mg Q12HR SC 12/02/24 10:00 12/09/24 09:21 140 MG Ipratropium [place] 0.5 mg Q6HR NEB 12/02/24 09:00 12/09/24 11:55 0.5 MG Levalbuterol HCl 0.625 mg Q6HR NEB 12/02/24 09:00 12/09/24 11:55 0.625 MG Acetaminophen/ Hydrocodone Bitart 1 tab Q4HPRN PRN PO 12/03/24 10:00 12/09/24 07:36 1 TAB Fat Emulsion Intravenous 200 ml/Sodium Chloride 160 meq/ Potassium Acetate 20 meq/Potassium Phosphate 30 meq/ Calcium Gluconate 6 meq/Magnesium Sulfate 24 meq/ Multivitamins 10 ml/Chromium/ Copper/Manganese/ Zinc 1 ml/Amino Acids/Dextrose 1,886.7214 ml @ 78 mls/hr [id number] IV 12/03/24 22:00 12/03/24 22:00 Cancel Carvedilol 25 mg Q12HR PO 12/04/24 22:00 12/09/24 09:21 25 MG Cefepime HCl 50 ml @ 12.5 mls/hr Q8H IV 12/05/24 20:00 12/09/24 11:33 12.5 MLS/HR Daptomycin 630 mg/ Sodium Chloride 50 ml @ 100 mls/hr Q24H IV 12/07/24 23:00 12/08/24 22:33 100 MLS/HR Laboratory Results Laboratory Tests 12/07/24 05:03 Urinalysis Test 11/11/24 20:50 Urine Color Yellow (Yellow) Urine Clarity Clear (Clear) Urine pH 6.0 (5.0-9.0) Urine Specific [place] 1.021 (1.001-1.035) Urine Protein 1+ (Negative) H Urine Ketones Negative (Negative) Urine Blood 2+ /uL (Negative) H Urine Nitrite Negative (Negative) Urine Bilirubin Negative (Negative) Urine Urobilinogen 3 mg/dL (Negative) H Urine Leukocyte Esterase Negative /uL (Negative) Urine RBC 1 /hpf (0 - 3) Urine Microscopic WBC 6 /HPF (0-3) H Urine Squamous Epithelial Cells None seen /hpf (<5) Urine Bacteria None seen /hpf (None Seen) Urine Mucus Few (None Seen) Urine Glucose 1+ mg/dL (Normal) H Microbiology Microbiology Date/Time Source Procedure Growth Status 12/01/24 17:30 Blood Blood Culture - Final NO GROWTH AFTER 5 DAYS OF INCUBATION. Complete 11/22/24 10:15 Abdomen Gram Stain - Final Complete 11/22/24 10:15 Abdomen Anaerobic Culture - Final Complete 11/22/24 10:15 Aerobic Culture - Final Escherichia coli Enterococcus faecium - VRE Complete 11/18/24 10:20 Voided Urine Urine Culture - Final Complete 11/15/24 13:15 Aspirate Gram Stain - Final Complete 11/15/24 13:15 Body Fluid Culture - Final Escherichia coli Complete Labs and/or images reviewed: Labs reviewed by me Assessment/Plan Assessment/Plan -severe sepsis secondary to perforated diverticulitis -obesity -hypokalemia -hyponatremia -right upper extremity DVT, repeat ultrasound reports resolution -Atelectasis Continue current management Continue IV antibiotic Continue to replace electrolyte Wound vac per surgeon Per surgeon, patient can be d/c. Will DW case assembler regarding to wound vac set up at home. Still waiting for US paracentesis/abscess drainage by interventional radiologist in a.m.. Continue pain medication. This medical document was created using an electronic medical record system with [employer] computerized dictation system. Although this document has been carefully reviewed, there may still be some phonetic and typographical errors. These areas are purely typographical due to imperfections of the software programs, and do not reflect any compromise in the patient's medical care. Plan discussed with: Patient Date of Service: Dec 09, 2024 Billing Provider: CHARISSE CROWELL MD Common Visit Codes: [id number] INP/OBS CARE(HIGH) CHARISSE CROWELL MD Dec 09, 2024 13:32
--- NOTE | 2024-12-09 23:44 | DVHPN2 ---
Progress Note - Dictate Date Seen: Dec 09, 2024 Medical Necessity Reason Pt with a Central, PICC or Fol: Yes The following are medically ne: PICC Line Subjective Patient seen and examined at bedside. Remains on supplemental oxygen Overnight events reviewed. vital signs Vital Sign Date Time Temp Pulse Resp B/P (MAP) Pulse Ox O2 Delivery O2 Flow Rate FiO2 12/09/24 23:00 104 27 131/73 (92) 94 12/09/24 22:00 Nasal Cannula* 3 32 12/09/24 20:00 99.5 99.5 Total Intake and Output 12/08/24 12/08/24 12/09/24 15:00 23:00 07:00 Intake Total 150 ml 680 ml 600 ml Output Total 1450 ml 2125 ml Balance 150 ml -770 ml -1525 ml medications Current Medications Medications Dose Ordered Sig/Edis Route Start Time Stop Time Status Last Admin Dose Admin Acetaminophen 650 mg Q6HPRN PRN PO 11/11/24 23:45 12/07/24 23:00 650 MG Piperacillin Sod/ Tazobactam Sod 100 ml @ 25 mls/hr Q8HR IV 11/12/24 06:00 UNV Ondansetron HCl 4 mg Q4HPRN PRN IV 11/12/24 07:45 11/25/24 06:32 4 MG Pantoprazole Sodium 40 mg DAILY IV 11/13/24 10:00 12/09/24 09:20 40 MG Morphine Sulfate 2 mg Q4HPRN PRN IV 11/12/24 16:45 12/09/24 21:35 2 MG Vancomycin HCl 300 ml @ 200 mls/hr Q12H IV 11/13/24 15:00 UNV Dextrose 50 ml UD IV 11/15/24 12:00 Hydralazine HCl 10 mg Q6HP PRN IV 11/16/24 15:45 12/04/24 16:06 10 MG Fat Emulsion Intravenous 200 ml/Sodium Chloride 80 meq/ Sodium Acetate 40 meq/Potassium Chloride 40 meq/ Potassium Phosphate 22 meq/ Calcium Gluconate 2.3 meq/Magnesium Sulfate 8 meq/ Multivitamins 10 ml/Chromium/ Copper/Manganese/ Zinc 1 ml/Amino Acids/Dextrose 1,582.9462 ml @ 66 mls/hr Q24H IV 11/18/24 22:00 11/19/24 21:59 Cancel Sodium Chloride 10 ml QSHIFT@10,22 IV 11/25/24 22:00 12/09/24 21:34 10 ML Potassium Chloride 100 ml @ 50 mls/hr Q2H IV 11/27/24 11:30 11/27/24 15:29 UNV Albumin Human 50 ml @ 100 mls/hr Q8H IV 11/29/24 07:45 Cancel Lorazepam 0.5 mg Q6HP PRN IV 11/29/24 09:00 12/09/24 00:11 0.5 MG Micafungin Sodium 100 mg/Sodium Chloride 100 ml @ 100 mls/hr DAILY IV 12/01/24 10:00 12/09/24 09:21 100 MLS/HR Enoxaparin Sodium 140 mg Q12HR SC 12/02/24 10:00 12/09/24 21:34 140 MG Ipratropium [place] 0.5 mg Q6HR NEB 12/02/24 09:00 12/09/24 18:19 0.5 MG Levalbuterol HCl 0.625 mg Q6HR NEB 12/02/24 09:00 12/09/24 18:19 0.625 MG Acetaminophen/ Hydrocodone Bitart 1 tab Q4HPRN PRN PO 12/03/24 10:00 12/09/24 07:36 1 TAB Fat Emulsion Intravenous 200 ml/Sodium Chloride 160 meq/ Potassium Acetate 20 meq/Potassium Phosphate 30 meq/ Calcium Gluconate 6 meq/Magnesium Sulfate 24 meq/ Multivitamins 10 ml/Chromium/ Copper/Manganese/ Zinc 1 ml/Amino Acids/Dextrose 1,886.7214 ml @ 78 mls/hr [id number] IV 12/03/24 22:00 12/03/24 22:00 Cancel Carvedilol 25 mg Q12HR PO 12/04/24 22:00 12/09/24 21:34 25 MG Cefepime HCl 50 ml @ 12.5 mls/hr Q8H IV 12/05/24 20:00 12/09/24 19:57 12.5 MLS/HR Daptomycin 630 mg/ Sodium Chloride 50 ml @ 100 mls/hr Q24H IV 12/07/24 23:00 12/09/24 23:00 100 MLS/HR objective Gen.: Patient lying in bed in no apparent distress. On supplemental oxygen. Head: Normocephalic, atraumatic. Eyes: EOMI/PERRLA. Ears: Normal hearing. Normal anatomy. Neck/trachea: Trachea midline, supple. Nose: Normal external anatomy. Mouth: Moist mucous membranes. Chest: Decreased air entry bilaterally. No wheezing or rhonchi. Cardiovascular: Positive S1, positive S2. Regular rate and rhythm. Abdomen: Positive bowel sounds in all 4 quadrants. Soft, non-tender, non- distended. : Deferred. Rectal: Deferred. Skin: Warm, dry. Intact. Extremities: 2+ radial pulses bilaterally. No lower extremity edema. Neuro: Awake, alert, oriented x3. No gross motor or sensory deficits. Cranial nerves II through XII intact. Gait not assessed. laboratory and microbiology Laboratory Tests 12/07/24 05:03 Test 12/07/24 05:03 Range/Units Serum Glucose 123 H 74-106 mg/dL Assessment/Plan Impression: Acute hypoxemic respiratory failure Dependence on supplemental oxygen Nonocclusive DVT Bowel perforation, s/p colostomy Atelectasis Events: Low oxygen requirements On 3 liters nasal cannula Taper O2 as tolerated No new complaints Continue antibiotics ID recommendations appreciated. Incentive spirometry for atelectasis. Pain control Avoid oversedation S/p ex lap Surgery recs appreciated Colostomy care. Wound VAC in place. Patient is stable for downgrade from the pulmonary standpoint. Disposition per hospitalist. Labs and imaging reviewed Rest of plan as noted below Plan: Supplemental oxygen Titrate to maintain sats above 92% Incentive spirometry Continue antibiotics F/u cultures Bronchodilators Recommend diuresis Monitor renal function Monitor electrolytes Supplement as needed Pain control Avoid oversedation F/u general surgery DVT prophylaxis Prognosis: Guarded given patient's multiple co-morbidities. Rest of plan per hospitalist and other consultants. Thank you Dr. aPyne for allowing me to participate in this patient's care. Further recommendations will depend on the patient's clinical course. Please do not hesitate to contact me if you have any questions or concerns. This medical document was created using an electronic medical record system with [employer] system. Although these documentations are being carefully reviewed, there may still be some phonetic and typographical changes. The errors are purely typographical, due to imperfection on the software program, and do not reflect any compromise in the patient's medical care. Dietary Evaluation Review Comments: To meet at least 75% ofpt's needs, recommend TPN kcal to be increased to 1500-2000kcal range and protein to be increased to 80-90g/d. Expected Outcomes/Goals: Pt will experience a gradual wt loss at this kcal level, yet, the appropriated nutrition support of protein and kcal can enhance pt's GI perforation healing process, and help him regain normal GI functionality Plan discussed with: Patient, Other (GUILLERMO Mendoza) LADI MON MD Dec 09, 2024 23:44
[2024-12-10] VITALS (34 sets, daily range): BP systolic 123–170; BP diastolic 53–103; PULSE 86–115; RESP 12–29; TEMP 98–99.6; O2SAT 81–100
--- NOTE | 2024-12-10 | DVHPN2 ---
Progress Note - Dictate Date Seen: Dec 09, 2024 Medical Necessity Reason Pt with a Central, PICC or Fol: Yes The following are medically ne: PICC Line Subjective Patient seen in [facility] , awake alert no new complaints Colostomy is functional ; drainage tube was removed Wound vac for wound dehiscence and drainage Ascites and pleural effusion Pt is tolerating a diet vital signs Vital Sign Date Time Temp Pulse Resp B/P (MAP) Pulse Ox O2 Delivery O2 Flow Rate FiO2 12/09/24 23:00 104 27 131/73 (92) 94 12/09/24 22:00 Nasal Cannula* 3 32 12/09/24 20:00 99.5 99.5 Total Intake and Output 12/08/24 12/08/24 12/09/24 15:00 23:00 07:00 Intake Total 150 ml 680 ml 600 ml Output Total 1450 ml 2125 ml Balance 150 ml -770 ml -1525 ml medications Current Medications Medications Dose Ordered Sig/Edis Route Start Time Stop Time Status Last Admin Dose Admin Acetaminophen 650 mg Q6HPRN PRN PO 11/11/24 23:45 12/07/24 23:00 650 MG Piperacillin Sod/ Tazobactam Sod 100 ml @ 25 mls/hr Q8HR IV 11/12/24 06:00 UNV Ondansetron HCl 4 mg Q4HPRN PRN IV 11/12/24 07:45 11/25/24 06:32 4 MG Pantoprazole Sodium 40 mg DAILY IV 11/13/24 10:00 12/09/24 09:20 40 MG Morphine Sulfate 2 mg Q4HPRN PRN IV 11/12/24 16:45 12/09/24 21:35 2 MG Vancomycin HCl 300 ml @ 200 mls/hr Q12H IV 11/13/24 15:00 UNV Dextrose 50 ml UD IV 11/15/24 12:00 Hydralazine HCl 10 mg Q6HP PRN IV 11/16/24 15:45 12/04/24 16:06 10 MG Fat Emulsion Intravenous 200 ml/Sodium Chloride 80 meq/ Sodium Acetate 40 meq/Potassium Chloride 40 meq/ Potassium Phosphate 22 meq/ Calcium Gluconate 2.3 meq/Magnesium Sulfate 8 meq/ Multivitamins 10 ml/Chromium/ Copper/Manganese/ Zinc 1 ml/Amino Acids/Dextrose 1,582.9462 ml @ 66 mls/hr Q24H IV 11/18/24 22:00 11/19/24 21:59 Cancel Sodium Chloride 10 ml QSHIFT@10,22 IV 11/25/24 22:00 12/09/24 21:34 10 ML Potassium Chloride 100 ml @ 50 mls/hr Q2H IV 11/27/24 11:30 11/27/24 15:29 UNV Albumin Human 50 ml @ 100 mls/hr Q8H IV 11/29/24 07:45 Cancel Lorazepam 0.5 mg Q6HP PRN IV 11/29/24 09:00 12/09/24 00:11 0.5 MG Micafungin Sodium 100 mg/Sodium Chloride 100 ml @ 100 mls/hr DAILY IV 12/01/24 10:00 12/09/24 09:21 100 MLS/HR Enoxaparin Sodium 140 mg Q12HR SC 12/02/24 10:00 12/09/24 21:34 140 MG Ipratropium [place] 0.5 mg Q6HR NEB 12/02/24 09:00 12/09/24 18:19 0.5 MG Levalbuterol HCl 0.625 mg Q6HR NEB 12/02/24 09:00 12/09/24 18:19 0.625 MG Acetaminophen/ Hydrocodone Bitart 1 tab Q4HPRN PRN PO 12/03/24 10:00 12/09/24 07:36 1 TAB Fat Emulsion Intravenous 200 ml/Sodium Chloride 160 meq/ Potassium Acetate 20 meq/Potassium Phosphate 30 meq/ Calcium Gluconate 6 meq/Magnesium Sulfate 24 meq/ Multivitamins 10 ml/Chromium/ Copper/Manganese/ Zinc 1 ml/Amino Acids/Dextrose 1,886.7214 ml @ 78 mls/hr [id number] IV 12/03/24 22:00 12/03/24 22:00 Cancel Carvedilol 25 mg Q12HR PO 12/04/24 22:00 12/09/24 21:34 25 MG Cefepime HCl 50 ml @ 12.5 mls/hr Q8H IV 12/05/24 20:00 12/09/24 19:57 12.5 MLS/HR Daptomycin 630 mg/ Sodium Chloride 50 ml @ 100 mls/hr Q24H IV 12/07/24 23:00 12/09/24 23:00 100 MLS/HR objective General Appearance: Alert, Oriented X3, Cooperative, No acute distress HEENT: Atraumatic, PERRLA Lungs: Clear to auscultation Cardiovascular: Regular rate Abdomen: Normal bowel sounds; drainage tube in place Musculoskeletal: Normal sensory function, Normal motor function Neuro: Cranial nerves 3-12 NL Skin: Dry, Intact Psych/Mental Status: Mental status NL, Mood NL laboratory and microbiology Laboratory Tests 12/07/24 05:03 Test 12/07/24 05:03 Range/Units Serum Glucose 123 H 74-106 mg/dL Problems(with codes): (1) History of open sigmoidectomy (2) Diverticulitis large intestine (3) Abscess of sigmoid colon due to diverticulitis (4) Abnormal finding on GI tract imaging (5) Leukocytosis Prognosis Plan Patient is awaiting IR re-evaluation in a.m. for possible IR guided thoracentesis paracentesis and/or drainage of abscess Continue supportive care, continue IV PPI , IV antibiotics as per ID recommendations Diet as tolerated; physical therapy ambulate patient Dietary Evaluation Review Comments: To meet at least 75% ofpt's needs, recommend TPN kcal to be increased to 1500-2000kcal range and protein to be increased to 80-90g/d. Expected Outcomes/Goals: Pt will experience a gradual wt loss at this kcal level, yet, the appropriated nutrition support of protein and kcal can enhance pt's GI perforation healing process, and help him regain normal GI functionality Plan discussed with: Patient, Other ([facility] Nurse) DAVONTE BILLY MD Dec 10, 2024 00:00
[2024-12-10 05:57] LABS: Hematocrit 25.7 % (41.0-53.0); Hemoglobin 8.2 g/dL (13.5-17.5); Mean Corpuscular Hemoglobin 26.1 pg (28.0-32.0); Mean Corpuscular Volume 82.5 fL (80.0-100.0); Nucleated Red Blood Cells % 0.1 %
[2024-12-10 06:21] LABS: Alanine Aminotransferase 30 U/L (7-40); Alkaline Phosphatase 65 U/L (46-116); Anion Gap 6 (5-15); Bilirubin, Total 0.4 mg/dL (0.2-1.0); Carbon Dioxide 30 mmol/L (20-31); Chloride 100 mmol/L (98-107); Potassium 4.0 mmol/L (3.5-5.1)
[2024-12-10 06:29] LABS: Albumin 2.6 g/dL (3.2-4.8); BUN/Creatinine Ratio 11.9 (10.0-20.0); Blood Urea Nitrogen < 5 mg/dL (9-23); Calcium 8.2 mg/dL (8.7-10.4); Glucose 115 mg/dL (74-106); Sodium 136 mmol/L (136-145); Total Protein 4.6 g/dL (5.7-8.2)
--- NOTE | 2024-12-10 07:53 | DVH ---
ULTRASOUND ABDOMEN limited, 4 QUADRANTS INDICATION: FLUID CHECK FOR POSSIBLE PARACENTESIS Evaluate for ascites. TECHNIQUE: The four quadrants of the abdomen were scanned in paulino-scale to assess for the presence of ascites. N o solid organ assessment was performed. FINDINGS/IMPRESSIONS: No significant fluid in the abdomen available for paracentesis. Incidentally noted right pleural effusion.
--- NOTE | 2024-12-10 07:59 | DVHPN2 ---
Progress Note - Dictate Date Seen: Dec 10, 2024 Medical Necessity Reason Pt with a Central, PICC or Fol: Yes The following are medically ne: PICC Line Subjective No new acute complaints noted. wbc is normal no pain GIOVANNY drain is out vital signs Vital Sign Date Time Temp Pulse Resp B/P (MAP) Pulse Ox O2 Delivery O2 Flow Rate FiO2 12/10/24 06:00 94 14 137/81 (99) 99 12/10/24 05:46 Nasal Cannula* 3 32 12/10/24 04:00 98.7 98.7 Total Intake and Output 12/09/24 12/09/24 12/10/24 15:00 23:00 07:00 Intake Total 150 ml 517.5 ml 90.0 ml Output Total 2125 ml Balance 150 ml -1607.5 ml 90.0 ml medications Current Medications Medications Dose Ordered Sig/Edis Route Start Time Stop Time Status Last Admin Dose Admin Acetaminophen 650 mg Q6HPRN PRN PO 11/11/24 23:45 12/07/24 23:00 650 MG Piperacillin Sod/ Tazobactam Sod 100 ml @ 25 mls/hr Q8HR IV 11/12/24 06:00 UNV Ondansetron HCl 4 mg Q4HPRN PRN IV 11/12/24 07:45 11/25/24 06:32 4 MG Pantoprazole Sodium 40 mg DAILY IV 11/13/24 10:00 12/09/24 09:20 40 MG Morphine Sulfate 2 mg Q4HPRN PRN IV 11/12/24 16:45 12/10/24 03:49 2 MG Vancomycin HCl 300 ml @ 200 mls/hr Q12H IV 11/13/24 15:00 UNV Dextrose 50 ml UD IV 11/15/24 12:00 Hydralazine HCl 10 mg Q6HP PRN IV 11/16/24 15:45 12/04/24 16:06 10 MG Fat Emulsion Intravenous 200 ml/Sodium Chloride 80 meq/ Sodium Acetate 40 meq/Potassium Chloride 40 meq/ Potassium Phosphate 22 meq/ Calcium Gluconate 2.3 meq/Magnesium Sulfate 8 meq/ Multivitamins 10 ml/Chromium/ Copper/Manganese/ Zinc 1 ml/Amino Acids/Dextrose 1,582.9462 ml @ 66 mls/hr Q24H IV 11/18/24 22:00 11/19/24 21:59 Cancel Sodium Chloride 10 ml QSHIFT@10,22 IV 11/25/24 22:00 12/09/24 21:34 10 ML Potassium Chloride 100 ml @ 50 mls/hr Q2H IV 11/27/24 11:30 11/27/24 15:29 UNV Albumin Human 50 ml @ 100 mls/hr Q8H IV 11/29/24 07:45 Cancel Lorazepam 0.5 mg Q6HP PRN IV 11/29/24 09:00 12/10/24 00:44 0.5 MG Micafungin Sodium 100 mg/Sodium Chloride 100 ml @ 100 mls/hr DAILY IV 12/01/24 10:00 12/09/24 09:21 100 MLS/HR Enoxaparin Sodium 140 mg Q12HR SC 12/02/24 10:00 12/09/24 21:34 140 MG Ipratropium [place] 0.5 mg Q6HR NEB 12/02/24 09:00 12/10/24 05:49 0.5 MG Levalbuterol HCl 0.625 mg Q6HR NEB 12/02/24 09:00 12/10/24 05:49 0.625 MG Acetaminophen/ Hydrocodone Bitart 1 tab Q4HPRN PRN PO 12/03/24 10:00 12/09/24 07:36 1 TAB Fat Emulsion Intravenous 200 ml/Sodium Chloride 160 meq/ Potassium Acetate 20 meq/Potassium Phosphate 30 meq/ Calcium Gluconate 6 meq/Magnesium Sulfate 24 meq/ Multivitamins 10 ml/Chromium/ Copper/Manganese/ Zinc 1 ml/Amino Acids/Dextrose 1,886.7214 ml @ 78 mls/hr [id number] IV 12/03/24 22:00 12/03/24 22:00 Cancel Carvedilol 25 mg Q12HR PO 12/04/24 22:00 12/09/24 21:34 25 MG Cefepime HCl 50 ml @ 12.5 mls/hr Q8H IV 12/05/24 20:00 12/10/24 03:48 12.5 MLS/HR Daptomycin 630 mg/ Sodium Chloride 50 ml @ 100 mls/hr Q24H IV 12/07/24 23:00 12/09/24 23:00 100 MLS/HR objective General Appearance: Alert, Oriented X3, Cooperative, No acute distress obese HEENT: Atraumatic, PERRLA, EOMI, Mucous membrane moist/pink Respiratory: Clear to auscultation, Normal air movement Cardiovascular: Regular rate, Normal S1, Normal S2, No murmurs, no chest wall tenderness Abdominal: s/p abdominal surgery, midline incision site looks ok. has colostomy. 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 he has a wound vac too. CT abdomen and pelvis with contrast shows some residual lower abdomen collection,and some ascites. discussed with Dr Zacarias. plan to repeat imaging in 4 weeks will dc IR consult. Arrange IV Daptomycin 600mg daily, IV Cefepime 2g q 8 hours for 3 weeks , oral flagyl 500mg TID and oral Fluconazole 200 mg daily for 2 weeks. Weekly labs cbc with diff, cmp, CPK. labs need to sent to his PCP and [phone] He needs to follow up with surgery /PCP in 3-4 weeks for repeat imaging to decide on further course. HE also needs referral for outpt ID who is in his network for follow up. Overall, since surgery date 11/22, he is anticipated to complete 5 weeks of antibiotics. He has had prolonged hospital stay, currently in [facility]. s/p colon resection on 11/22 s/p colostomy with output. had diverticular abscess with OR cx grew VRE Review of cultures: 11/11, Blood culture showed no growth 11/11, Urine culture showed no growth 11/12, MRSA screening came back negative 11/13, Urine culture showed no growth 11/15, Body fluid culture showed E. coli 11/18, Blood culture showed no growth 11/18, urine culture showed no growth 11/22, OR culture showed E. coli and Enterococcus faecium 11/28, Blood culture showed no growth 12/01, Blood culture preliminary showed no growth Antibiotic status: Cefepime IV [Started on 12/03 - Ongoing] Micafungin IV [Started on 12/01 - Ongoing] Linezolid IV [Started on 11/25 - Ongoing] Meropenem IV [Given on 11/29 - Ongoing] Flagyl IV Started on 11/22 - 11/29] Ceftriaxone IV [Started on 11/25 - 11/29] discussed with Dr Zacarias Thank you for consult Dietary Evaluation Review Comments: To meet at least 75% ofpt's needs, recommend TPN kcal to be increased to 1500-2000kcal range and protein to be increased to 80-90g/d. Expected Outcomes/Goals: Pt will experience a gradual wt loss at this kcal level, yet, the appropriated nutrition support of protein and kcal can enhance pt's GI perforation healing process, and help him regain normal GI functionality Plan discussed with: MAKENNA Alfaro MD Dec 10, 2024 07:59
[2024-12-10] MEDS: FLUCONAZOLE 100 MG TAB PO SCH (09:42)
--- NOTE | 2024-12-10 10:15 | DVHPN2 ---
Subjective Patient denies any symptoms at this time. 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 (Network Support Administrator) Changes from previous H/P or p: No Changes General: Per HPI Objective Vitals Vital Signs Date Time Temp Pulse Resp B/P (MAP) Pulse Ox O2 Delivery O2 Flow Rate FiO2 12/10/24 09:41 116 138/97 12/10/24 09:00 27 95 Nasal Cannula* 3 32 12/10/24 04:00 98.7 98.7 Intake/Output Intake and Output 12/10/24 07:00 Intake Total 1257.5 ml Output Total 3375 ml Balance -2117.5 ml Intake Oral 980 ml IV Total 277.5 ml Output Urine Total 3100 ml Stool Total 275 ml Exam Assessed in the recovery area. General Appearance: Alert, Oriented X3, Cooperative, mild distress HEENT: Atraumatic, PERRLA Lungs: Clear to auscultation, Normal air movement, Other (Nasal cannula at 4 L/min) Cardiovascular: Normal S1, Normal S2, Other (Sinus tachycardia) Abdomen: Other (Abdominal wound has dehiscence. Wound VAC placed.) Genitourinary: No Apparent Abnormalities (Hernandez catheter) Musculoskeletal: Normal sensory function, Normal motor function Neuro: Normal gait, Normal speech, Sensation intact, Cranial nerves 3-12 NL Skin: Dry, Intact Psych/Mental Status: Mental status NL, Mood NL Medications Current Medications Medications Dose Ordered Sig/Edis Route Start Time Stop Time Status Last Admin Dose Admin Acetaminophen 650 mg Q6HPRN PRN PO 11/11/24 23:45 12/07/24 23:00 650 MG Piperacillin Sod/ Tazobactam Sod 100 ml @ 25 mls/hr Q8HR IV 11/12/24 06:00 UNV Ondansetron HCl 4 mg Q4HPRN PRN IV 11/12/24 07:45 11/25/24 06:32 4 MG Pantoprazole Sodium 40 mg DAILY IV 11/13/24 10:00 12/10/24 09:43 40 MG Morphine Sulfate 2 mg Q4HPRN PRN IV 11/12/24 16:45 12/10/24 03:49 2 MG Vancomycin HCl 300 ml @ 200 mls/hr Q12H IV 11/13/24 15:00 UNV Dextrose 50 ml UD IV 11/15/24 12:00 Hydralazine HCl 10 mg Q6HP PRN IV 11/16/24 15:45 12/04/24 16:06 10 MG Fat Emulsion Intravenous 200 ml/Sodium Chloride 80 meq/ Sodium Acetate 40 meq/Potassium Chloride 40 meq/ Potassium Phosphate 22 meq/ Calcium Gluconate 2.3 meq/Magnesium Sulfate 8 meq/ Multivitamins 10 ml/Chromium/ Copper/Manganese/ Zinc 1 ml/Amino Acids/Dextrose 1,582.9462 ml @ 66 mls/hr Q24H IV 11/18/24 22:00 11/19/24 21:59 Cancel Sodium Chloride 10 ml QSHIFT@10,22 IV 11/25/24 22:00 12/10/24 09:43 10 ML Potassium Chloride 100 ml @ 50 mls/hr Q2H IV 11/27/24 11:30 11/27/24 15:29 UNV Albumin Human 50 ml @ 100 mls/hr Q8H IV 11/29/24 07:45 Cancel Lorazepam 0.5 mg Q6HP PRN IV 11/29/24 09:00 12/10/24 00:44 0.5 MG Enoxaparin Sodium 140 mg Q12HR SC 12/02/24 10:00 12/10/24 09:43 140 MG Ipratropium [place] 0.5 mg Q6HR NEB 12/02/24 09:00 12/10/24 05:49 0.5 MG Levalbuterol HCl 0.625 mg Q6HR NEB 12/02/24 09:00 12/10/24 05:49 0.625 MG Acetaminophen/ Hydrocodone Bitart 1 tab Q4HPRN PRN PO 12/03/24 10:00 12/09/24 07:36 1 TAB Fat Emulsion Intravenous 200 ml/Sodium Chloride 160 meq/ Potassium Acetate 20 meq/Potassium Phosphate 30 meq/ Calcium Gluconate 6 meq/Magnesium Sulfate 24 meq/ Multivitamins 10 ml/Chromium/ Copper/Manganese/ Zinc 1 ml/Amino Acids/Dextrose 1,886.7214 ml @ 78 mls/hr [id number] IV 12/03/24 22:00 12/03/24 22:00 Cancel Carvedilol 25 mg Q12HR PO 12/04/24 22:00 12/10/24 09:41 25 MG Cefepime HCl 50 ml @ 12.5 mls/hr Q8H IV 12/05/24 20:00 12/10/24 03:48 12.5 MLS/HR Daptomycin 630 mg/ Sodium Chloride 50 ml @ 100 mls/hr Q24H IV 12/07/24 23:00 12/09/24 23:00 100 MLS/HR Fluconazole 200 mg DAILY PO 12/10/24 10:00 12/10/24 09:42 200 MG Metronidazole 500 mg Q8HR PO 12/10/24 14:00 Laboratory Results Laboratory Tests 12/10/24 04:46 Chemistry Test 12/10/24 04:46 Albumin 2.6 g/dL (3.2-4.8) L Calcium Level 8.2 mg/dL (8.7-10.4) L Total Protein 4.6 g/dL (5.7-8.2) L LFT Test 12/10/24 04:46 Alanine Aminotransferase (ALT) 30 U/L (7-40) Alkaline Phosphatase 65 U/L (46-116) Aspartate Amino Transferase (AST) 20 U/L (<34) Total Bilirubin 0.4 mg/dL (0.2-1.0) Urinalysis Test 11/11/24 20:50 Urine Color Yellow (Yellow) Urine Clarity Clear (Clear) Urine pH 6.0 (5.0-9.0) Urine Specific [place] 1.021 (1.001-1.035) Urine Protein 1+ (Negative) H Urine Ketones Negative (Negative) Urine Blood 2+ /uL (Negative) H Urine Nitrite Negative (Negative) Urine Bilirubin Negative (Negative) Urine Urobilinogen 3 mg/dL (Negative) H Urine Leukocyte Esterase Negative /uL (Negative) Urine RBC 1 /hpf (0 - 3) Urine Microscopic WBC 6 /HPF (0-3) H Urine Squamous Epithelial Cells None seen /hpf (<5) Urine Bacteria None seen /hpf (None Seen) Urine Mucus Few (None Seen) Urine Glucose 1+ mg/dL (Normal) H Microbiology Microbiology Date/Time Source Procedure Growth Status 12/01/24 17:30 Blood Blood Culture - Final NO GROWTH AFTER 5 DAYS OF INCUBATION. Complete 11/22/24 10:15 Abdomen Gram Stain - Final Complete 11/22/24 10:15 Abdomen Anaerobic Culture - Final Complete 11/22/24 10:15 Aerobic Culture - Final Escherichia coli Enterococcus faecium - VRE Complete 11/18/24 10:20 Voided Urine Urine Culture - Final Complete 11/15/24 13:15 Aspirate Gram Stain - Final Complete 11/15/24 13:15 Body Fluid Culture - Final Escherichia coli Complete Labs and/or images reviewed: Labs reviewed by me, Image(s) reviewed by me Assessment/Plan Assessment/Plan Impression: -severe sepsis secondary to perforated diverticulitis -obesity -hypokalemia -hyponatremia -right upper extremity DVT, repeat ultrasound reports resolution -Atelectasis Plan: Events: Infectious disease notation reviewed. Discussed plan of care with the patient. Currently has wound VAC to entirety of surgical site. Social service consultation placed for home health services with PT, IV antibiotics. -IV antibiotics: Continue per Infectious Disease -continue diet as tolerated -PPI -pain management -out of bed as tolerated, physical therapy -incentive spirometer -social service consultation for DC planning Total time spent with patient discussing and formulating plan of care: 35 minutes. This medical document was created using an electronic medical record system with [employer] dictation system. Although this document has been carefully reviewed, there may still be some phonetic and typographical errors. These areas are purely typographical due to imperfections of the software programs, and do not reflect any compromise in the patient's medical care. Plan discussed with: Patient, Other (RN) My Orders Orders - SANDRA GOODMAN NP Procedure Category Date Status Time Communication Order ORDERS 12/10/24 Transmitted 09:20 Communication Order ORDERS 12/10/24 Transmitted 09:20 Communication Order ORDERS 12/10/24 Transmitted 09:20 * Cloud Developer CONS 12/10/24 Transmitted Consult Apixaban (Eliquis) PHA 12/10/24 Transmitted 22:00 Pantoprazole Tablet PHA 12/11/24 Transmitted (Protonix Tablet) 06:00 Date of Service: Dec 10, 2024 Billing Provider: SANDRA GOODMAN NP Common Visit Codes: 30110-[id number] INP/OBS CARE(HIGH) SANDRA GOODMAN NP Dec 10, 2024 10:15
[2024-12-10] MEDS: metroNIDAZOLE 500 MG TAB PO SCH (14:05)
[2024-12-10] MEDS: APIXABAN 5 MG TAB PO SCH (21:55)
--- NOTE | 2024-12-10 23:27 | DVHPN2 ---
Progress Note - Dictate Date Seen: Dec 10, 2024 Medical Necessity Reason Pt with a Central, PICC or Fol: Yes The following are medically ne: PICC Line Subjective Patient seen and examined at bedside. Remains on supplemental oxygen Overnight events reviewed. vital signs Vital Sign Date Time Temp Pulse Resp B/P (MAP) Pulse Ox O2 Delivery O2 Flow Rate FiO2 12/10/24 22:55 115 127/70 12/10/24 22:26 19 12/10/24 22:00 96 12/10/24 22:00 Nasal Cannula* 2 28 12/10/24 20:00 99.2 99.2 Total Intake and Output 12/09/24 12/09/24 12/10/24 14:59 22:59 06:59 Intake Total 150 ml 505.0 ml 602.5 ml Output Total 2125 ml 1250 ml Balance 150 ml -1620.0 ml -647.5 ml medications Current Medications Medications Dose Ordered Sig/Edis Route Start Time Stop Time Status Last Admin Dose Admin Acetaminophen 650 mg Q6HPRN PRN PO 11/11/24 23:45 12/07/24 23:00 650 MG Piperacillin Sod/ Tazobactam Sod 100 ml @ 25 mls/hr Q8HR IV 11/12/24 06:00 UNV Ondansetron HCl 4 mg Q4HPRN PRN IV 11/12/24 07:45 11/25/24 06:32 4 MG Morphine Sulfate 2 mg Q4HPRN PRN IV 11/12/24 16:45 12/10/24 21:56 2 MG Vancomycin HCl 300 ml @ 200 mls/hr Q12H IV 11/13/24 15:00 UNV Dextrose 50 ml UD IV 11/15/24 12:00 Hydralazine HCl 10 mg Q6HP PRN IV 11/16/24 15:45 12/04/24 16:06 10 MG Fat Emulsion Intravenous 200 ml/Sodium Chloride 80 meq/ Sodium Acetate 40 meq/Potassium Chloride 40 meq/ Potassium Phosphate 22 meq/ Calcium Gluconate 2.3 meq/Magnesium Sulfate 8 meq/ Multivitamins 10 ml/Chromium/ Copper/Manganese/ Zinc 1 ml/Amino Acids/Dextrose 1,582.9462 ml @ 66 mls/hr Q24H IV 11/18/24 22:00 11/19/24 21:59 Cancel Sodium Chloride 10 ml QSHIFT@10,22 IV 11/25/24 22:00 12/10/24 21:56 10 ML Potassium Chloride 100 ml @ 50 mls/hr Q2H IV 11/27/24 11:30 11/27/24 15:29 UNV Albumin Human 50 ml @ 100 mls/hr Q8H IV 11/29/24 07:45 Cancel Lorazepam 0.5 mg Q6HP PRN IV 11/29/24 09:00 12/10/24 00:44 0.5 MG Ipratropium [place] 0.5 mg Q6HR NEB 12/02/24 09:00 12/10/24 19:41 0.5 MG Levalbuterol HCl 0.625 mg Q6HR NEB 12/02/24 09:00 12/10/24 19:41 0.625 MG Acetaminophen/ Hydrocodone Bitart 1 tab Q4HPRN PRN PO 12/03/24 10:00 12/09/24 07:36 1 TAB Fat Emulsion Intravenous 200 ml/Sodium Chloride 160 meq/ Potassium Acetate 20 meq/Potassium Phosphate 30 meq/ Calcium Gluconate 6 meq/Magnesium Sulfate 24 meq/ Multivitamins 10 ml/Chromium/ Copper/Manganese/ Zinc 1 ml/Amino Acids/Dextrose 1,886.7214 ml @ 78 mls/hr [id number] IV 12/03/24 22:00 12/03/24 22:00 Cancel Carvedilol 25 mg Q12HR PO 12/04/24 22:00 12/10/24 21:55 25 MG Cefepime HCl 50 ml @ 12.5 mls/hr Q8H IV 12/05/24 20:00 12/10/24 20:03 12.5 MLS/HR Daptomycin 630 mg/ Sodium Chloride 50 ml @ 100 mls/hr Q24H IV 12/07/24 23:00 12/10/24 23:13 100 MLS/HR Fluconazole 200 mg DAILY PO 12/10/24 10:00 12/10/24 09:42 200 MG Metronidazole 500 mg Q8HR PO 12/10/24 14:00 12/10/24 21:55 500 MG Apixaban 5 mg BID PO 12/10/24 22:00 12/10/24 21:55 5 MG Pantoprazole Sodium 40 mg DAILY@0600 PO 12/11/24 06:00 objective Gen.: Patient lying in bed in no apparent distress. On supplemental oxygen. Head: Normocephalic, atraumatic. Eyes: EOMI/PERRLA. Ears: Normal hearing. Normal anatomy. Neck/trachea: Trachea midline, supple. Nose: Normal external anatomy. Mouth: Moist mucous membranes. Chest: Decreased air entry bilaterally. No wheezing or rhonchi. Cardiovascular: Positive S1, positive S2. Regular rate and rhythm. Abdomen: Positive bowel sounds in all 4 quadrants. Soft, non-tender, non- distended. : Deferred. Rectal: Deferred. Skin: Warm, dry. Intact. Extremities: 2+ radial pulses bilaterally. No lower extremity edema. Neuro: Awake, alert, oriented x3. No gross motor or sensory deficits. Cranial nerves II through XII intact. Gait not assessed. laboratory and microbiology Laboratory Tests 12/10/24 04:46 Test 12/10/24 04:46 Range/Units Serum Glucose 115 H 74-106 mg/dL Assessment/Plan Impression: Acute hypoxemic respiratory failure Dependence on supplemental oxygen Nonocclusive DVT Bowel perforation, s/p colostomy Atelectasis Events: Improved oxygen requirements On 1 liter via nasal cannula Taper O2 as tolerated No new complaints Continue antibiotics - complete course ID recommendations appreciated. Incentive spirometry for atelectasis. Pain control Avoid oversedation Wound care. Recommend outpatient sleep study due to suspicion/risk for MARNIE. Disposition per hospitalist. Labs and imaging reviewed Rest of plan as noted below Plan: Supplemental oxygen Titrate to maintain sats above 92% S/p ex lap Surgery recs appreciated Colostomy care. Wound VAC in place. Incentive spirometry Continue antibiotics F/u cultures Bronchodilators Maintain euvolemia Monitor renal function Monitor electrolytes Supplement as needed Pain control Avoid oversedation F/u general surgery DVT prophylaxis Prognosis: Guarded given patient's multiple co-morbidities. Rest of plan per hospitalist and other consultants. Thank you Dr. Payne for allowing me to participate in this patient's care. Further recommendations will depend on the patient's clinical course. Please do not hesitate to contact me if you have any questions or concerns. This medical document was created using an electronic medical record system with [employer] dictation system. Although these documentations are being carefully reviewed, there may still be some phonetic and typographical changes. The errors are purely typographical, due to imperfection on the software program, and do not reflect any compromise in the patient's medical care. Dietary Evaluation Review Comments: To meet at least 75% ofpt's needs, recommend TPN kcal to be increased to 1500-2000kcal range and protein to be increased to 80-90g/d. Expected Outcomes/Goals: Pt will experience a gradual wt loss at this kcal level, yet, the appropriated nutrition support of protein and kcal can enhance pt's GI perforation healing process, and help him regain normal GI functionality Plan discussed with: Patient, Other (GUILLERMO Hutchison) LADI MON MD Dec 10, 2024 23:27
[2024-12-11] VITALS (38 sets, daily range): BP systolic 128–168; BP diastolic 55–89; PULSE 93–124; RESP 16–34; TEMP 98.8–99.4; O2SAT 89–100
[2024-12-11] MEDS: PANTOPRAZOLE 40 MG TAB PO SCH (06:05)
[2024-12-11] MEDS ORDERED: FLUC100T PO (10:14)
[2024-12-11] MEDS ORDERED: METR-344 PO (10:14)
[2024-12-11] MEDS ORDERED: CARV25TA55 PO (10:14)
[2024-12-11] MEDS ORDERED: HYDR-4902 PO (10:14)
--- NOTE | 2024-12-11 10:23 | DVHDS2 ---
Discharge Summary Date of Admission Nov 11, 2024 at 23:29 Date of Discharge: Dec 11, 2024 Admitting Diagnosis Perforated sigmoid diverticulum Wounds: Surgical wound to abdomen Labs/Diagnostic Data: Laboratory Results Test 12/10/24 04:46 12/07/24 05:03 12/04/24 04:43 12/03/24 11:45 White Blood Count 9.6 10^3/uL (4.4-10.8) Red Blood Count 3.12 10^6/uL (4.5-5.90) Hemoglobin 8.2 g/dL (13.5-17.5) Hematocrit 25.7 % (41.0-53.0) Mean Corpuscular Volume 82.5 fL (80.0-100.0) Mean Corpuscular Hemoglobin 26.1 pg (28.0-32.0) Mean Corpuscular Hemoglobin Concent 31.7 g/dL (32.0-36.0) Red Cell Distribution Width 16.3 % (11.8-14.3) Platelet Count 503 10^3/uL (140-450) Mean Platelet Volume 6.6 fL (6.9-10.8) Neutrophils (%) (Auto) 73.8 % (37.0-80.0) Lymphocytes (%) (Auto) 15.4 % (10.0-50.0) Monocytes (%) (Auto) 8.5 % (0.0-12.0) Eosinophils (%) (Auto) 1.7 % (0.0-7.0) Basophils (%) (Auto) 0.6 % (0.0-2.0) Neutrophils # (Auto) 7.1 10 ^3/uL (1.6-8.6) Lymphocytes # (Auto) 1.5 10 ^3/uL (0.4-5.4) Monocytes # (Auto) 0.8 10 ^3/uL (0-1.3) Eosinophils # (Auto) 0.2 10 ^3/uL (0-0.8) Basophils # (Auto) 0.1 10 ^3/uL (0-0.2) Nucleated Red Blood Cells 0.1 % Sodium Level 136 mmol/L (136-145) Potassium Level 4.0 mmol/L (3.5-5.1) Chloride Level 100 mmol/L (98-107) Carbon Dioxide Level 30 mmol/L (20-31) Anion Gap 6 (5-15) Blood Urea Nitrogen < 5 mg/dL (9-23) Creatinine 0.42 mg/dL (0.700-1.30) Glomerular Filtration Rate Calc 134 mL/min (>90) BUN/Creatinine Ratio 11.9 (10.0-20.0) Serum Glucose 115 mg/dL (74-106) Calcium Level 8.2 mg/dL (8.7-10.4) Total Bilirubin 0.4 mg/dL (0.2-1.0) Aspartate Amino Transferase (AST) 20 U/L (<34) Alanine Aminotransferase (ALT) 30 U/L (7-40) Alkaline Phosphatase 65 U/L (46-116) Total Protein 4.6 g/dL (5.7-8.2) Albumin 2.6 g/dL (3.2-4.8) Magnesium Level 2.0 mg/dL (1.6-2.6) Estimated GFR () 253 mL/min Estimated GFR (Non- 209 mL/min Phosphorus Level 3.1 mg/dL (2.4-5.1) POC Glucose 169 mg/dl (70-106) Test 12/03/24 06:10 12/01/24 05:45 11/30/24 13:10 11/29/24 21:42 Blood Gas Specimen Type Arterial Blood Gas Sample Site Left radial Blood Gas Patient Temperature 37.0 Arterial Blood Date Drawn [id number] Arterial Blood pH 7.495 (7.350-7.450) Arterial Blood Partial Pressure CO2 32.2 mmHg (35.0-48.0) Arterial Blood Partial Pressure O2 72.0 mmHg (83.0-108.0) Arterial Blood HCO3 24.3 mmol/L (21.0-28.0) Arterial Blood Oxygen Saturation 93.7 % (94.0-98.0) Arterial Blood Base Excess 1.3 mmol/L (-2.0-3.0) Arterial Blood Oxyhemoglobin 92.7 % (94.0-98.0) Arterial Blood Carboxyhemoglobin 0.8 % (0.5-1.5) Arterial Blood Methemoglobin 0.3 % (0.0-1.5) Jim Test Yes Blood Gas Total Hemoglobin 10.00 g/dL (13.5-17.5) Blood Gas Liter Flow 2.00 Blood Gas Modality Nasal cannula FiO2 % 28.0 Triglycerides Level 101 mg/dL (< 150) Prothrombin Time 14.2 sec (9.3-11.8) Prothrombin Time INR 1.38 (0.9-1.15) Activated Partial Thromboplast Time 29.7 SEC (24.5-34.5) Differential Total Cells Counted 100.0 (100) Neutrophils % (Manual) 83 (37.0-80.0) Band Neutrophils % (Manual) 5 Lymphocytes % (Manual) 3 (10.0-50.0) Monocytes % (Manual) 8 (0-12) Eosinophils % (Manual) 0 (0-7) Basophils % (Manual) 0 (0.0-2.0) Metamyelocytes % (manual) 1 Myelocytes % (Manual) 0 Promyelocytes % (Manual) 0 Blast Cells % (Manual) 0 Reactive Lymphocytes 0 Platelet Estimate Adequate Anisocytosis (manual) Slight Test 11/29/24 04:45 11/27/24 11:12 11/26/24 03:20 11/19/24 12:56 Troponin I High Sensitivity 4 ng/L (</=54) Large Platelets Few Giant Platelets Few Vancomycin Level Trough 24.7 ug/mL (5-10) Test 11/19/24 08:49 11/17/24 04:38 11/13/24 12:10 11/12/24 00:25 Erythrocyte Sedimentation Rate 28 mm/hr (0-20) Hemoglobin A1c 5.5 % A1C (<5.7) Urine Opiates Screen Neg (NEGATIVE) Urine Fentanyl Screen Neg (NEGATIVE) Urine Barbiturates Screen Neg (NEGATIVE) Urine Phencyclidine Screen Neg (NEGATIVE) Urine Amphetamines Screen Neg (NEGATIVE) Urine Benzodiazepines Screen Neg (NEGATIVE) Urine Cocaine Screen Neg (NEGATIVE) Urine Cannabinoids Screen Neg (NEGATIVE) Influenza Type A Antigen Negative (Negative) Influenza Type B Antigen Negative (Negative) SARS-CoV-2 Antigen (Rapid) Negative (NEGATIVE) Test 11/11/24 20:50 11/11/24 20:15 Urine Color Yellow (Yellow) Urine Clarity Clear (Clear) Urine pH 6.0 (5.0-9.0) Urine Specific [place] 1.021 (1.001-1.035) Urine Protein 1+ (Negative) Urine Ketones Negative (Negative) Urine Blood 2+ /uL (Negative) Urine Nitrite Negative (Negative) Urine Bilirubin Negative (Negative) Urine Urobilinogen 3 mg/dL (Negative) Urine Leukocyte Esterase Negative /uL (Negative) Urine RBC 1 /hpf (0 - 3) Urine Microscopic WBC 6 /HPF (0-3) Urine Squamous Epithelial Cells None seen /hpf (<5) Urine Bacteria None seen /hpf (None Seen) Urine Mucus Few (None Seen) Urine Glucose 1+ mg/dL (Normal) Lactic Acid Level 1.7 mmol/L (0.4-2.0) Lipase 31 U/L (12-53) Other Laboratory Tests 12/10/24 04:46 Brief Hx & Hospital Course: History of Present Illness This is a 44 year old male with significant past medical history presented to the ED with a chief complaint of blurred vision and testicular pain since morning prior to this admission. The patient states that 5 days ago he was diagnosed with COVID-19 and since then he has having intermittent fever, chills and highest temperature recorded 101, associated with nausea, 1 episodes of vomiting , diarrhea and urgency. Mentioned that when he was seeing objects with both eyes it it seems blurred but when covered 1 eye and trying to see objects from other eye the vision becomes clear. He was not vaccinated for COVID-19 and never had COVID before. Denied any history of trauma to the scrotum or any urinary urgency, hesitancy, burning sensation in the urine and did not mentioned any position that feels comfortable with the testicular pain. The patient also denied abdominal pain, tenderness, intractable nausea and vomiting, altered bowel habit, positive sick contact or any history of recent traveling. Course of hospitalization: Initial treatment of the patient included NPO status with initiation of TPN. Patient continued to have fevers, tachycardia, with repeat CT scan revealing diverticular abscess. Interventional radiologist was consulted, with placement of drain to the lower abdomen. Patient's clinical status improved. Patient was advanced with diet, with the patient having worsening clinical status with return of fevers, tachycardia, as well as elevated white blood cell count. Patient is subsequently underwent exploratory laparotomy with creation of colostomy and peritoneal washout of abscess. Patient was kept on empiric antibiotic therapy postoperatively. Diet was advanced. Repeat CT scan with contrast revealed new abscess to the pelvic area. Antifungals were added to antimicrobial regimen. Patient did grow both E coli and VRE from abdominal specimens. Patient was found to have DVT to previous right upper extremity PICC line area. CT angiogram was negative for pulmonary embolism. Patient was started on Lovenox, which was transitioned to Eliquis after p.o. intake was started. Patient is now afebrile with white blood cell count normal. [place] were removed from the abdomen with the patient to have dehiscence of the abdominal wound for which wound VAC was placed. Patient received physical therapy while in the hospital. Patient is tolerating oral intake. Hemodynamically the patient is doing well, afebrile, with no signs of acute sepsis. Patient will be discharged home with home health services for IV antibiotic therapy including daptomycin and cefepime infusion per Infectious Disease orders. Patient will also be continued on Flagyl and Diflucan orally. Patient will receive pain management in the form of [place] 5/325 every 8 hours as needed. Patient will also go home with a wound VAC for which home health services we will assess as an outpatient. He will follow up with Dr. Fall in 1-2 weeks, infectious disease doctor in 1-2 weeks, as well as his PCP at next available appointment. Patient is agreeable this discharge plan. All questions answered. Physical examination General: Alert and Oriented x3. No acute distress. Well-nourished. Obese Eyes: EOMI. Anicteric. HENT: Moist mucous membranes. Lungs: Clear to auscultation bilaterally. No accessory muscle use. Cardiovascular: Regular rate and rhythm. No murmur. No JVD. Abdomen: Soft, non-tender and non-distended. No palpable masses. Abdominal dressing/wound VAC clean dry and intact Extremities: No edema. Non-tender. Skin: No rashes or lesions. Warm. Neurologic: No focal neurological deficits. CN II-XII grossly intact, but not individually tested. Psychiatric: Cooperative. Appropriate mood and affect. Total time spent with patient discussing and formulating plan of care: 35 minutes. This medical document was created using an electronic medical record system with [employer] system. Although this document has been carefully reviewed, there may still be some phonetic and typographical errors. These areas are purely typographical due to imperfections of the software programs, and do not reflect any compromise in the patient's medical care. Consults/Reason for consult General surgery: Perforated diverticulum Interventional Radiology: Abscess drain placement Pulmonology: Acute respiratory failure Infectious disease: Sepsis Operations or Procedures Exploratory laparotomy with colostomy creation IR drain placement for abdominal abscess Condition at Discharge: Guarded Final Diagnosis/Problems List Sepsis secondary to perforated significant diverticula Secondary diagnosis: -obesity -hypokalemia -hyponatremia -right upper extremity DVT, repeat ultrasound reports resolution -Atelectasis -acute hypoxic respiratory failure secondary to atelectasis -probable obstructive sleep apnea -wound dehiscence abdominal cavity -hypoalbuminemia Discharge Disposition: Home with Health Services Discharge Instruct/Medications Activity: Light activity Follow Up/Referral: Dr. Zacarias 1-2 weeks Infectious disease in 1-2 weeks PCP in 1-2 weeks Medications: Refer to medication reconciliation Scheduled Carvedilol (Carvedilol), 1 TAB PO BID Fluconazole (Diflucan), 200 MG PO DAILY Metronidazole (Flagyl), 1 TAB PO TID Scheduled PRN Hydrocodone-Acetaminophen (Hydrocodone Bitartrate/AC 5-325 mg), 1 TAB PO Q8HP PRN 36 Discharge Statement: "Patient was advised to return to the ER or call 911 if any headaches, dizziness, shortness of breath, chest pain, abdominal pain, bleeding, fevers, or worsening of medical condition. Patient was counseled about treatment plan, medications, possible side effects, patientverbalized understanding. All questions were answered to the best of my ability. This discharge took greater then 30 minutes in planning, reviewing documentation, counseling the patient, and discussing with other team members." ASSESSMENT ASSESSMENT Assessment Date of Service: Dec 11, 2024 Billing Provider: SANDRA GOODMAN NP Common Visit Codes: 64400-LKJ/OBS DISCH DAY >30min SANDRA GOODMAN NP Dec 11, 2024 10:23
--- NOTE | 2024-12-11 11:00 | DVHPN2 ---
Progress Note - Dictate Date Seen: Dec 11, 2024 Medical Necessity Reason Pt with a Central, PICC or Fol: Yes The following are medically ne: PICC Line Subjective Colostomy is functional ; drainage tube was removed. Wound vac vital signs Vital Sign Date Time Temp Pulse Resp B/P (MAP) Pulse Ox O2 Delivery O2 Flow Rate FiO2 12/11/24 10:19 106 136/79 12/11/24 10:00 20 94 Nasal Cannula* 1 24 12/11/24 08:01 99.2 99.2 Total Intake and Output 12/10/24 12/10/24 12/11/24 15:00 23:00 07:00 Intake Total 757.5 ml 550.0 ml 657.5 ml Output Total 1650 ml 2695 ml 2700 ml Balance -892.5 ml -2145.0 ml -2042.5 ml medications Current Medications Medications Dose Ordered Sig/Edis Route Start Time Stop Time Status Last Admin Dose Admin Acetaminophen 650 mg Q6HPRN PRN PO 11/11/24 23:45 12/07/24 23:00 650 MG Piperacillin Sod/ Tazobactam Sod 100 ml @ 25 mls/hr Q8HR IV 11/12/24 06:00 UNV Ondansetron HCl 4 mg Q4HPRN PRN IV 11/12/24 07:45 11/25/24 06:32 4 MG Morphine Sulfate 2 mg Q4HPRN PRN IV 11/12/24 16:45 12/11/24 04:41 2 MG Vancomycin HCl 300 ml @ 200 mls/hr Q12H IV 11/13/24 15:00 UNV Dextrose 50 ml UD IV 11/15/24 12:00 Hydralazine HCl 10 mg Q6HP PRN IV 11/16/24 15:45 12/04/24 16:06 10 MG Fat Emulsion Intravenous 200 ml/Sodium Chloride 80 meq/ Sodium Acetate 40 meq/Potassium Chloride 40 meq/ Potassium Phosphate 22 meq/ Calcium Gluconate 2.3 meq/Magnesium Sulfate 8 meq/ Multivitamins 10 ml/Chromium/ Copper/Manganese/ Zinc 1 ml/Amino Acids/Dextrose 1,582.9462 ml @ 66 mls/hr Q24H IV 11/18/24 22:00 11/19/24 21:59 Cancel Sodium Chloride 10 ml QSHIFT@10,22 IV 11/25/24 22:00 12/11/24 10:07 10 ML Potassium Chloride 100 ml @ 50 mls/hr Q2H IV 11/27/24 11:30 11/27/24 15:29 UNV Albumin Human 50 ml @ 100 mls/hr Q8H IV 11/29/24 07:45 Cancel Lorazepam 0.5 mg Q6HP PRN IV 11/29/24 09:00 12/11/24 01:02 0.5 MG Ipratropium [place] 0.5 mg Q6HR NEB 12/02/24 09:00 12/11/24 06:39 0.5 MG Levalbuterol HCl 0.625 mg Q6HR NEB 12/02/24 09:00 12/11/24 06:39 0.625 MG Acetaminophen/ Hydrocodone Bitart 1 tab Q4HPRN PRN PO 12/03/24 10:00 12/09/24 07:36 1 TAB Fat Emulsion Intravenous 200 ml/Sodium Chloride 160 meq/ Potassium Acetate 20 meq/Potassium Phosphate 30 meq/ Calcium Gluconate 6 meq/Magnesium Sulfate 24 meq/ Multivitamins 10 ml/Chromium/ Copper/Manganese/ Zinc 1 ml/Amino Acids/Dextrose 1,886.7214 ml @ 78 mls/hr [id number] IV 12/03/24 22:00 12/03/24 22:00 Cancel Carvedilol 25 mg Q12HR PO 12/04/24 22:00 12/11/24 09:19 25 MG Cefepime HCl 50 ml @ 12.5 mls/hr Q8H IV 12/05/24 20:00 12/11/24 04:14 12.5 MLS/HR Daptomycin 630 mg/ Sodium Chloride 50 ml @ 100 mls/hr Q24H IV 12/07/24 23:00 12/10/24 23:13 100 MLS/HR Fluconazole 200 mg DAILY PO 12/10/24 10:00 12/11/24 09:19 200 MG Metronidazole 500 mg Q8HR PO 12/10/24 14:00 12/11/24 06:05 500 MG Apixaban 5 mg BID PO 12/10/24 22:00 12/11/24 09:19 5 MG Pantoprazole Sodium 40 mg DAILY@0600 PO 12/11/24 06:00 12/11/24 06:05 40 MG objective General Appearance: Alert, Oriented X3, Cooperative, No acute distress obese HEENT: Atraumatic, PERRLA, EOMI, Mucous membrane moist/pink Respiratory: Clear to auscultation, Normal air movement Cardiovascular: Regular rate, Normal S1, Normal S2, No murmurs, no chest wall tenderness Abdominal: s/p abdominal surgery, midline incision site looks ok. has colostomy. 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 he has a wound vac too. CT abdomen and pelvis with contrast shows some residual lower abdomen collection,and some ascites. discussed with Dr Zacarias. plan to repeat imaging in 4 weeks will dc IR consult. Arrange IV Daptomycin 600mg daily, IV Cefepime 2g q 8 hours for 3 weeks , oral flagyl 500mg TID and oral Fluconazole 200 mg daily for 2 weeks. Weekly labs cbc with diff, cmp, CPK. labs need to sent to his PCP and [phone] He needs to follow up with surgery /PCP in 3-4 weeks for repeat imaging to decide on further course. HE also needs referral for outpt ID who is in his network for follow up. Overall, since surgery date 11/22, he is anticipated to complete 5 weeks of antibiotics. He has had prolonged hospital stay, currently in [facility]. s/p colon resection on 11/22 s/p colostomy with output. had diverticular abscess with OR cx grew VRE Review of cultures: 11/11, Blood culture showed no growth 11/11, Urine culture showed no growth 11/12, MRSA screening came back negative 11/13, Urine culture showed no growth 11/15, Body fluid culture showed E. coli 11/18, Blood culture showed no growth 11/18, urine culture showed no growth 11/22, OR culture showed E. coli and Enterococcus faecium 11/28, Blood culture showed no growth 12/01, Blood culture preliminary showed no growth Antibiotic status: Cefepime IV [Started on 12/03 - Ongoing] Micafungin IV [Started on 12/01 - Ongoing] Linezolid IV [Started on 11/25 - Ongoing] Meropenem IV [Given on 11/29 - Ongoing] Flagyl IV Started on 11/22 - 11/29] Ceftriaxone IV [Started on 11/25 - 11/29] discussed with Dr Zacarias Thank you for consult Dietary Evaluation Review Comments: To meet at least 75% ofpt's needs, recommend TPN kcal to be increased to 1500-2000kcal range and protein to be increased to 80-90g/d. Expected Outcomes/Goals: Pt will experience a gradual wt loss at this kcal level, yet, the appropriated nutrition support of protein and kcal can enhance pt's GI perforation healing process, and help him regain normal GI functionality MAKENNA STONER MD Dec 11, 2024 11:00
--- NOTE | 2024-12-11 13:40 | DVHPN2 ---
Progress Note - Dictate Date Seen: Dec 11, 2024 Medical Necessity Reason Pt with a Central, PICC or Fol: Yes The following are medically ne: PICC Line Subjective Patient seen in [facility] , awake alert no new complaints Colostomy is functional ; drainage tube was removed Wound vac for wound dehiscence and drainage Ascites and pleural effusion Pt is tolerating a diet vital signs Vital Sign Date Time Temp Pulse Resp B/P (MAP) Pulse Ox O2 Delivery O2 Flow Rate FiO2 12/11/24 12:00 95 12/11/24 12:00 20 92 Nasal Cannula* 1 24 12/11/24 12:00 98.8 153/75 (101) 98.8 Total Intake and Output 12/10/24 12/10/24 12/11/24 15:00 23:00 07:00 Intake Total 757.5 ml 550.0 ml 657.5 ml Output Total 1650 ml 2695 ml 2700 ml Balance -892.5 ml -2145.0 ml -2042.5 ml medications Current Medications Medications Dose Ordered Sig/Edis Route Start Time Stop Time Status Last Admin Dose Admin Acetaminophen 650 mg Q6HPRN PRN PO 11/11/24 23:45 12/07/24 23:00 650 MG Piperacillin Sod/ Tazobactam Sod 100 ml @ 25 mls/hr Q8HR IV 11/12/24 06:00 UNV Ondansetron HCl 4 mg Q4HPRN PRN IV 11/12/24 07:45 11/25/24 06:32 4 MG Morphine Sulfate 2 mg Q4HPRN PRN IV 11/12/24 16:45 12/11/24 11:22 2 MG Vancomycin HCl 300 ml @ 200 mls/hr Q12H IV 11/13/24 15:00 UNV Dextrose 50 ml UD IV 11/15/24 12:00 Hydralazine HCl 10 mg Q6HP PRN IV 11/16/24 15:45 12/04/24 16:06 10 MG Fat Emulsion Intravenous 200 ml/Sodium Chloride 80 meq/ Sodium Acetate 40 meq/Potassium Chloride 40 meq/ Potassium Phosphate 22 meq/ Calcium Gluconate 2.3 meq/Magnesium Sulfate 8 meq/ Multivitamins 10 ml/Chromium/ Copper/Manganese/ Zinc 1 ml/Amino Acids/Dextrose 1,582.9462 ml @ 66 mls/hr Q24H IV 11/18/24 22:00 11/19/24 21:59 Cancel Sodium Chloride 10 ml QSHIFT@10,22 IV 11/25/24 22:00 12/11/24 10:07 10 ML Potassium Chloride 100 ml @ 50 mls/hr Q2H IV 11/27/24 11:30 11/27/24 15:29 UNV Albumin Human 50 ml @ 100 mls/hr Q8H IV 11/29/24 07:45 Cancel Lorazepam 0.5 mg Q6HP PRN IV 11/29/24 09:00 12/11/24 01:02 0.5 MG Ipratropium [place] 0.5 mg Q6HR NEB 12/02/24 09:00 12/11/24 06:39 0.5 MG Levalbuterol HCl 0.625 mg Q6HR NEB 12/02/24 09:00 12/11/24 06:39 0.625 MG Acetaminophen/ Hydrocodone Bitart 1 tab Q4HPRN PRN PO 12/03/24 10:00 12/09/24 07:36 1 TAB Fat Emulsion Intravenous 200 ml/Sodium Chloride 160 meq/ Potassium Acetate 20 meq/Potassium Phosphate 30 meq/ Calcium Gluconate 6 meq/Magnesium Sulfate 24 meq/ Multivitamins 10 ml/Chromium/ Copper/Manganese/ Zinc 1 ml/Amino Acids/Dextrose 1,886.7214 ml @ 78 mls/hr [id number] IV 12/03/24 22:00 12/03/24 22:00 Cancel Carvedilol 25 mg Q12HR PO 12/04/24 22:00 12/11/24 09:19 25 MG Cefepime HCl 50 ml @ 12.5 mls/hr Q8H IV 12/05/24 20:00 12/11/24 11:45 12.5 MLS/HR Daptomycin 630 mg/ Sodium Chloride 50 ml @ 100 mls/hr Q24H IV 12/07/24 23:00 12/10/24 23:13 100 MLS/HR Fluconazole 200 mg DAILY PO 12/10/24 10:00 12/11/24 09:19 200 MG Metronidazole 500 mg Q8HR PO 12/10/24 14:00 12/11/24 06:05 500 MG Apixaban 5 mg BID PO 12/10/24 22:00 12/11/24 09:19 5 MG Pantoprazole Sodium 40 mg DAILY@0600 PO 12/11/24 06:00 12/11/24 06:05 40 MG objective General Appearance: Alert, Oriented X3, Cooperative, No acute distress HEENT: Atraumatic, PERRLA Lungs: Clear to auscultation Cardiovascular: Regular rate Abdomen: Normal bowel sounds; drainage tube in place Musculoskeletal: Normal sensory function, Normal motor function Neuro: Cranial nerves 3-12 NL Skin: Dry, Intact Psych/Mental Status: Mental status NL, Mood NL laboratory and microbiology Laboratory Tests 12/10/24 04:46 Test 12/10/24 04:46 Range/Units Serum Glucose 115 H 74-106 mg/dL Problems(with codes): (1) History of open sigmoidectomy (2) Diverticulitis large intestine (3) Abnormal finding on GI tract imaging (4) Abscess of sigmoid colon due to diverticulitis (5) Abdominal pain Prognosis Plan Patient is clinically improving and today is afebrile Continue IV antibiotics Initiate discharge planning GI will sign out at this time Outpatient follow up with GI Services to consider elective colonoscopy prior to reversal of colostomy Dietary Evaluation Review Comments: To meet at least 75% ofpt's needs, recommend TPN kcal to be increased to 1500-2000kcal range and protein to be increased to 80-90g/d. Expected Outcomes/Goals: Pt will experience a gradual wt loss at this kcal level, yet, the appropriated nutrition support of protein and kcal can enhance pt's GI perforation healing process, and help him regain normal GI functionality Plan discussed with: Patient DAVONTE BILLY MD Dec 11, 2024 13:40
--- NOTE | 2024-12-11 23:49 | DVHPN2 ---
Progress Note - Dictate Date Seen: Dec 11, 2024 Medical Necessity Reason Pt with a Central, PICC or Fol: Yes The following are medically ne: PICC Line Subjective Patient seen and examined at bedside. Remains on supplemental oxygen Overnight events reviewed. vital signs Vital Sign Date Time Temp Pulse Resp B/P (MAP) Pulse Ox O2 Delivery O2 Flow Rate FiO2 12/11/24 22:06 124 140/76 12/11/24 22:00 24 94 Room Air* 0 21 12/11/24 20:00 99.4 99.4 Total Intake and Output 12/10/24 12/10/24 12/11/24 15:00 23:00 07:00 Intake Total 757.5 ml 550.0 ml 657.5 ml Output Total 1650 ml 2695 ml 2700 ml Balance -892.5 ml -2145.0 ml -2042.5 ml medications Current Medications Medications Dose Ordered Sig/Edis Route Start Time Stop Time Status Last Admin Dose Admin Acetaminophen 650 mg Q6HPRN PRN PO 11/11/24 23:45 12/07/24 23:00 650 MG Piperacillin Sod/ Tazobactam Sod 100 ml @ 25 mls/hr Q8HR IV 11/12/24 06:00 UNV Ondansetron HCl 4 mg Q4HPRN PRN IV 11/12/24 07:45 11/25/24 06:32 4 MG Morphine Sulfate 2 mg Q4HPRN PRN IV 11/12/24 16:45 12/11/24 20:19 2 MG Vancomycin HCl 300 ml @ 200 mls/hr Q12H IV 11/13/24 15:00 UNV Dextrose 50 ml UD IV 11/15/24 12:00 Hydralazine HCl 10 mg Q6HP PRN IV 11/16/24 15:45 12/04/24 16:06 10 MG Fat Emulsion Intravenous 200 ml/Sodium Chloride 80 meq/ Sodium Acetate 40 meq/Potassium Chloride 40 meq/ Potassium Phosphate 22 meq/ Calcium Gluconate 2.3 meq/Magnesium Sulfate 8 meq/ Multivitamins 10 ml/Chromium/ Copper/Manganese/ Zinc 1 ml/Amino Acids/Dextrose 1,582.9462 ml @ 66 mls/hr Q24H IV 11/18/24 22:00 11/19/24 21:59 Cancel Sodium Chloride 10 ml QSHIFT@10,22 IV 11/25/24 22:00 12/11/24 22:06 10 ML Potassium Chloride 100 ml @ 50 mls/hr Q2H IV 11/27/24 11:30 11/27/24 15:29 UNV Albumin Human 50 ml @ 100 mls/hr Q8H IV 11/29/24 07:45 Cancel Lorazepam 0.5 mg Q6HP PRN IV 11/29/24 09:00 12/11/24 01:02 0.5 MG Ipratropium [place] 0.5 mg Q6HR NEB 12/02/24 09:00 12/11/24 18:34 0.5 MG Levalbuterol HCl 0.625 mg Q6HR NEB 12/02/24 09:00 12/11/24 18:34 0.625 MG Acetaminophen/ Hydrocodone Bitart 1 tab Q4HPRN PRN PO 12/03/24 10:00 12/09/24 07:36 1 TAB Fat Emulsion Intravenous 200 ml/Sodium Chloride 160 meq/ Potassium Acetate 20 meq/Potassium Phosphate 30 meq/ Calcium Gluconate 6 meq/Magnesium Sulfate 24 meq/ Multivitamins 10 ml/Chromium/ Copper/Manganese/ Zinc 1 ml/Amino Acids/Dextrose 1,886.7214 ml @ 78 mls/hr [id number] IV 12/03/24 22:00 12/03/24 22:00 Cancel Carvedilol 25 mg Q12HR PO 12/04/24 22:00 12/11/24 22:06 25 MG Cefepime HCl 50 ml @ 12.5 mls/hr Q8H IV 12/05/24 20:00 12/11/24 20:19 12.5 MLS/HR Daptomycin 630 mg/ Sodium Chloride 50 ml @ 100 mls/hr Q24H IV 12/07/24 23:00 12/10/24 23:13 100 MLS/HR Fluconazole 200 mg DAILY PO 12/10/24 10:00 12/11/24 09:19 200 MG Metronidazole 500 mg Q8HR PO 12/10/24 14:00 12/11/24 22:05 500 MG Apixaban 5 mg BID PO 12/10/24 22:00 12/11/24 22:05 5 MG Pantoprazole Sodium 40 mg DAILY@0600 PO 12/11/24 06:00 12/11/24 06:05 40 MG objective Gen.: Patient lying in bed in no apparent distress. On supplemental oxygen. Head: Normocephalic, atraumatic. Eyes: EOMI/PERRLA. Ears: Normal hearing. Normal anatomy. Neck/trachea: Trachea midline, supple. Nose: Normal external anatomy. Mouth: Moist mucous membranes. Chest: Decreased air entry bilaterally. No wheezing or rhonchi. Cardiovascular: Positive S1, positive S2. Regular rate and rhythm. Abdomen: Positive bowel sounds in all 4 quadrants. Soft, non-tender, non- distended. : Deferred. Rectal: Deferred. Skin: Warm, dry. Intact. Extremities: 2+ radial pulses bilaterally. No lower extremity edema. Neuro: Awake, alert, oriented x3. No gross motor or sensory deficits. Cranial nerves II through XII intact. Gait not assessed. laboratory and microbiology Laboratory Tests 12/10/24 04:46 Test 12/10/24 04:46 Range/Units Serum Glucose 115 H 74-106 mg/dL Assessment/Plan Impression: Acute hypoxemic respiratory failure Dependence on supplemental oxygen Nonocclusive DVT Bowel perforation, s/p colostomy Atelectasis Events: Continues on supplemental oxygen On 2 liters via nasal cannula Taper O2 as tolerated No new complaints Continue antibiotics - complete course ID recommendations appreciated. Incentive spirometry for atelectasis. Pain control Avoid oversedation Wound care. Wound VAC in place. Eliquis BID for DVT ppx Physical therapy. Recommend outpatient sleep study due to suspicion/risk for MARNIE. Disposition per hospitalist. Labs and imaging reviewed Rest of plan as noted below Plan: Supplemental oxygen Titrate to maintain sats above 92% S/p ex lap Surgery recs appreciated Colostomy care. Wound VAC in place. Incentive spirometry Continue antibiotics F/u cultures Bronchodilators Maintain euvolemia Monitor renal function Monitor electrolytes Supplement as needed Pain control Avoid oversedation F/u general surgery DVT prophylaxis Prognosis: Guarded given patient's multiple co-morbidities. Rest of plan per hospitalist and other consultants. Thank you Dr. Payne for allowing me to participate in this patient's care. Further recommendations will depend on the patient's clinical course. Please do not hesitate to contact me if you have any questions or concerns. This medical document was created using an electronic medical record system with [employer] system. Although these documentations are being carefully reviewed, there may still be some phonetic and typographical changes. The errors are purely typographical, due to imperfection on the software program, and do not reflect any compromise in the patient's medical care. Dietary Evaluation Review Comments: To meet at least 75% ofpt's needs, recommend TPN kcal to be increased to 1500-2000kcal range and protein to be increased to 80-90g/d. Expected Outcomes/Goals: Pt will experience a gradual wt loss at this kcal level, yet, the appropriated nutrition support of protein and kcal can enhance pt's GI perforation healing process, and help him regain normal GI functionality Plan discussed with: Patient, Other (GUILLERMO Reynaga) LADI MON MD Dec 11, 2024 23:49
[2024-12-12] VITALS (34 sets, daily range): BP systolic 118–169; BP diastolic 63–121; PULSE 95–119; RESP 15–39; TEMP 97.6–99.9; O2SAT 89–100
--- NOTE | 2024-12-12 09:45 | DVH ---
CHEST RADIOGRAPH Indication: pna vs atelectasis Technique: Single frontal view of the chest was obtained Comparison: XY CHEST PORTABLE on DOS: 12/04/24, XY CHEST PORTABLE on DOS: 12/03/24, XY CHEST XRAY 1 VIE W on DOS: 12/02/24, XY CHEST PORTABLE on DOS: 11/29/24, XY CHEST PORTABLE on DOS: 11/29/24, XY CHEST POR TABLE on DOS: 12/04/24 FINDINGS: Lines and Tubes: Left PICC in satisfactory position. Lungs: Low lung volumes. Bibasilar subsegmental atelectasis. Pleura: No effusion. No pneumothorax. Cardiomediastinal contours: Cardiomegaly Bones: Unremarkable IMPRESSION: No significant interval change.
--- NOTE | 2024-12-12 11:27 | DVHPN2 ---
Progress Note - Dictate Date Seen: Dec 12, 2024 Medical Necessity Reason Pt with a Central, PICC or Fol: Yes The following are medically ne: PICC Line Subjective Colostomy is functional ; drainage tube was removed. Wound vac Chest x-ray showed No significant interval change. vital signs Vital Sign Date Time Temp Pulse Resp B/P (MAP) Pulse Ox O2 Delivery O2 Flow Rate FiO2 12/12/24 10:00 112 27 169/121 (137) 97 12/12/24 10:00 Nasal Cannula* 1 24 12/12/24 08:00 97.9 97.9 Total Intake and Output 12/11/24 12/11/24 12/12/24 15:00 23:00 07:00 Intake Total 50.0 ml 480 ml 270 ml Output Total 2375 ml 2605 ml Balance 50.0 ml -1895 ml -2335 ml medications Current Medications Medications Dose Ordered Sig/Edis Route Start Time Stop Time Status Last Admin Dose Admin Acetaminophen 650 mg Q6HPRN PRN PO 11/11/24 23:45 12/07/24 23:00 650 MG Piperacillin Sod/ Tazobactam Sod 100 ml @ 25 mls/hr Q8HR IV 11/12/24 06:00 UNV Ondansetron HCl 4 mg Q4HPRN PRN IV 11/12/24 07:45 11/25/24 06:32 4 MG Vancomycin HCl 300 ml @ 200 mls/hr Q12H IV 11/13/24 15:00 UNV Dextrose 50 ml UD IV 11/15/24 12:00 Hydralazine HCl 10 mg Q6HP PRN IV 11/16/24 15:45 12/04/24 16:06 10 MG Fat Emulsion Intravenous 200 ml/Sodium Chloride 80 meq/ Sodium Acetate 40 meq/Potassium Chloride 40 meq/ Potassium Phosphate 22 meq/ Calcium Gluconate 2.3 meq/Magnesium Sulfate 8 meq/ Multivitamins 10 ml/Chromium/ Copper/Manganese/ Zinc 1 ml/Amino Acids/Dextrose 1,582.9462 ml @ 66 mls/hr Q24H IV 11/18/24 22:00 11/19/24 21:59 Cancel Sodium Chloride 10 ml QSHIFT@10,22 IV 11/25/24 22:00 12/12/24 09:07 10 ML Potassium Chloride 100 ml @ 50 mls/hr Q2H IV 11/27/24 11:30 11/27/24 15:29 UNV Albumin Human 50 ml @ 100 mls/hr Q8H IV 11/29/24 07:45 Cancel Ipratropium [place] 0.5 mg Q6HR NEB 12/02/24 09:00 12/12/24 06:24 0.5 MG Levalbuterol HCl 0.625 mg Q6HR NEB 12/02/24 09:00 12/12/24 06:24 0.625 MG Acetaminophen/ Hydrocodone Bitart 1 tab Q4HPRN PRN PO 12/03/24 10:00 12/09/24 07:36 1 TAB Fat Emulsion Intravenous 200 ml/Sodium Chloride 160 meq/ Potassium Acetate 20 meq/Potassium Phosphate 30 meq/ Calcium Gluconate 6 meq/Magnesium Sulfate 24 meq/ Multivitamins 10 ml/Chromium/ Copper/Manganese/ Zinc 1 ml/Amino Acids/Dextrose 1,886.7214 ml @ 78 mls/hr [id number] IV 12/03/24 22:00 12/03/24 22:00 Cancel Carvedilol 25 mg Q12HR PO 12/04/24 22:00 12/12/24 09:07 25 MG Cefepime HCl 50 ml @ 12.5 mls/hr Q8H IV 12/05/24 20:00 12/12/24 04:29 12.5 MLS/HR Daptomycin 630 mg/ Sodium Chloride 50 ml @ 100 mls/hr Q24H IV 12/07/24 23:00 12/11/24 23:00 100 MLS/HR Fluconazole 200 mg DAILY PO 12/10/24 10:00 12/12/24 09:06 200 MG Metronidazole 500 mg Q8HR PO 12/10/24 14:00 12/12/24 06:26 500 MG Apixaban 5 mg BID PO 12/10/24 22:00 12/12/24 09:06 5 MG Pantoprazole Sodium 40 mg DAILY@0600 PO 12/11/24 06:00 12/12/24 06:26 40 MG objective General Appearance: Alert, Oriented X3, Cooperative, No acute distress obese HEENT: Atraumatic, PERRLA, EOMI, Mucous membrane moist/pink Respiratory: Clear to auscultation, Normal air movement Cardiovascular: Regular rate, Normal S1, Normal S2, No murmurs, no chest wall tenderness Abdominal: s/p abdominal surgery, midline incision site looks ok. has colostomy. 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 he has a wound vac too. CT abdomen and pelvis with contrast shows some residual lower abdomen collection,and some ascites. discussed with Dr Zacarias. plan to repeat imaging in 4 weeks will dc IR consult. Arrange IV Daptomycin 600mg daily, IV Cefepime 2g q 8 hours for 3 weeks , oral flagyl 500mg TID and oral Fluconazole 200 mg daily for 2 weeks. Weekly labs cbc with diff, cmp, CPK. labs need to sent to his PCP and [phone] He needs to follow up with surgery /PCP in 3-4 weeks for repeat imaging to decide on further course. HE also needs referral for outpt ID who is in his network for follow up. Overall, since surgery date 11/22, he is anticipated to complete 5 weeks of antibiotics. He has had prolonged hospital stay, currently in [facility]. s/p colon resection on 11/22 s/p colostomy with output. had diverticular abscess with OR cx grew VRE Review of cultures: 11/11, Blood culture showed no growth 11/11, Urine culture showed no growth 11/12, MRSA screening came back negative 11/13, Urine culture showed no growth 11/15, Body fluid culture showed E. coli 11/18, Blood culture showed no growth 11/18, urine culture showed no growth 11/22, OR culture showed E. coli and Enterococcus faecium 11/28, Blood culture showed no growth 12/01, Blood culture preliminary showed no growth Antibiotic status: Cefepime IV [Started on 12/03 - Ongoing] Micafungin IV [Started on 12/01 - Ongoing] Linezolid IV [Started on 11/25 - Ongoing] Meropenem IV [Given on 11/29 - Ongoing] Flagyl IV Started on 11/22 - 11/29] Ceftriaxone IV [Started on 11/25 - 11/29] discussed with Dr Zacarias Thank you for consult Dietary Evaluation Review Comments: To meet at least 75% ofpt's needs, recommend TPN kcal to be increased to 1500-2000kcal range and protein to be increased to 80-90g/d. Expected Outcomes/Goals: Pt will experience a gradual wt loss at this kcal level, yet, the appropriated nutrition support of protein and kcal can enhance pt's GI perforation healing process, and help him regain normal GI functionality MAKENNA STONER MD Dec 12, 2024 11:27
[2024-12-12] MEDS: MELATONIN 5 MG TAB PO PRN (22:06)
--- NOTE | 2024-12-12 23:53 | DVHPN2 ---
Progress Note - Dictate Date Seen: Dec 12, 2024 Medical Necessity Reason Pt with a Central, PICC or Fol: Yes The following are medically ne: PICC Line Subjective Patient seen and examined at bedside. Remains on supplemental oxygen Overnight events reviewed. vital signs Vital Sign Date Time Temp Pulse Resp B/P (MAP) Pulse Ox O2 Delivery O2 Flow Rate FiO2 12/12/24 22:07 110 135/72 12/12/24 22:00 24 94 Nasal Cannula* 2 28 12/12/24 20:00 98.9 98.9 Total Intake and Output 12/11/24 12/11/24 12/12/24 15:00 23:00 07:00 Intake Total 50.0 ml 480 ml 270 ml Output Total 2375 ml 2605 ml Balance 50.0 ml -1895 ml -2335 ml medications Current Medications Medications Dose Ordered Sig/Edis Route Start Time Stop Time Status Last Admin Dose Admin Acetaminophen 650 mg Q6HPRN PRN PO 11/11/24 23:45 12/12/24 22:06 650 MG Piperacillin Sod/ Tazobactam Sod 100 ml @ 25 mls/hr Q8HR IV 11/12/24 06:00 UNV Ondansetron HCl 4 mg Q4HPRN PRN IV 11/12/24 07:45 11/25/24 06:32 4 MG Vancomycin HCl 300 ml @ 200 mls/hr Q12H IV 11/13/24 15:00 UNV Dextrose 50 ml UD IV 11/15/24 12:00 Hydralazine HCl 10 mg Q6HP PRN IV 11/16/24 15:45 12/04/24 16:06 10 MG Fat Emulsion Intravenous 200 ml/Sodium Chloride 80 meq/ Sodium Acetate 40 meq/Potassium Chloride 40 meq/ Potassium Phosphate 22 meq/ Calcium Gluconate 2.3 meq/Magnesium Sulfate 8 meq/ Multivitamins 10 ml/Chromium/ Copper/Manganese/ Zinc 1 ml/Amino Acids/Dextrose 1,582.9462 ml @ 66 mls/hr Q24H IV 11/18/24 22:00 11/19/24 21:59 Cancel Sodium Chloride 10 ml QSHIFT@10,22 IV 11/25/24 22:00 12/12/24 22:07 10 ML Potassium Chloride 100 ml @ 50 mls/hr Q2H IV 11/27/24 11:30 11/27/24 15:29 UNV Albumin Human 50 ml @ 100 mls/hr Q8H IV 11/29/24 07:45 Cancel Ipratropium [place] 0.5 mg Q6HR NEB 12/02/24 09:00 12/12/24 18:24 0.5 MG Levalbuterol HCl 0.625 mg Q6HR NEB 12/02/24 09:00 12/12/24 18:24 0.625 MG Acetaminophen/ Hydrocodone Bitart 1 tab Q4HPRN PRN PO 12/03/24 10:00 12/12/24 16:45 1 TAB Fat Emulsion Intravenous 200 ml/Sodium Chloride 160 meq/ Potassium Acetate 20 meq/Potassium Phosphate 30 meq/ Calcium Gluconate 6 meq/Magnesium Sulfate 24 meq/ Multivitamins 10 ml/Chromium/ Copper/Manganese/ Zinc 1 ml/Amino Acids/Dextrose 1,886.7214 ml @ 78 mls/hr [id number] IV 12/03/24 22:00 12/03/24 22:00 Cancel Carvedilol 25 mg Q12HR PO 12/04/24 22:00 12/12/24 22:07 25 MG Cefepime HCl 50 ml @ 12.5 mls/hr Q8H IV 12/05/24 20:00 12/12/24 20:47 12.5 MLS/HR Daptomycin 630 mg/ Sodium Chloride 50 ml @ 100 mls/hr Q24H IV 12/07/24 23:00 12/11/24 23:00 100 MLS/HR Fluconazole 200 mg DAILY PO 12/10/24 10:00 12/12/24 09:06 200 MG Metronidazole 500 mg Q8HR PO 12/10/24 14:00 12/12/24 22:06 500 MG Apixaban 5 mg BID PO 12/10/24 22:00 12/12/24 22:06 5 MG Pantoprazole Sodium 40 mg DAILY@0600 PO 12/11/24 06:00 12/12/24 06:26 40 MG Melatonin 10 mg HS PRN PO 12/12/24 20:45 12/12/24 22:06 10 MG objective Gen.: Patient lying in bed in no apparent distress. On supplemental oxygen. Head: Normocephalic, atraumatic. Eyes: EOMI/PERRLA. Ears: Normal hearing. Normal anatomy. Neck/trachea: Trachea midline, supple. Nose: Normal external anatomy. Mouth: Moist mucous membranes. Chest: Decreased air entry bilaterally. No wheezing or rhonchi. Cardiovascular: Positive S1, positive S2. Regular rate and rhythm. Abdomen: Positive bowel sounds in all 4 quadrants. Soft, non-tender, non- distended. : Deferred. Rectal: Deferred. Skin: Warm, dry. Intact. Extremities: 2+ radial pulses bilaterally. No lower extremity edema. Neuro: Awake, alert, oriented x3. No gross motor or sensory deficits. Cranial nerves II through XII intact. Gait not assessed. laboratory and microbiology Laboratory Tests 12/10/24 04:46 Test 12/10/24 04:46 Range/Units Serum Glucose 115 H 74-106 mg/dL Assessment/Plan Impression: Acute hypoxemic respiratory failure Dependence on supplemental oxygen Nonocclusive DVT Bowel perforation, s/p colostomy Atelectasis Events: Continues on supplemental oxygen On 2 liters via nasal cannula Taper O2 as tolerated Arranging antibiotics for patient. No new complaints Continue antibiotics - complete course ID recommendations appreciated. Incentive spirometry for atelectasis. Pain control Avoid oversedation Wound care. Wound VAC in place. Eliquis BID for DVT ppx Physical therapy. Recommend outpatient sleep study due to suspicion/risk for MARNIE. Disposition per hospitalist. Labs and imaging reviewed Rest of plan as noted below Plan: Supplemental oxygen Titrate to maintain sats above 92% S/p ex lap Surgery recs appreciated Colostomy care. Wound VAC in place. Incentive spirometry Continue antibiotics F/u cultures Bronchodilators Maintain euvolemia Monitor renal function Monitor electrolytes Supplement as needed Pain control Avoid oversedation F/u general surgery DVT prophylaxis Prognosis: Guarded given patient's multiple co-morbidities. Rest of plan per hospitalist and other consultants. Thank you Dr. Payne for allowing me to participate in this patient's care. Further recommendations will depend on the patient's clinical course. Please do not hesitate to contact me if you have any questions or concerns. This medical document was created using an electronic medical record system with [employer] system. Although these documentations are being carefully reviewed, there may still be some phonetic and typographical changes. The errors are purely typographical, due to imperfection on the software program, and do not reflect any compromise in the patient's medical care. Dietary Evaluation Review Comments: To meet at least 75% ofpt's needs, recommend TPN kcal to be increased to 1500-2000kcal range and protein to be increased to 80-90g/d. Expected Outcomes/Goals: Pt will experience a gradual wt loss at this kcal level, yet, the appropriated nutrition support of protein and kcal can enhance pt's GI perforation healing process, and help him regain normal GI functionality Plan discussed with: Patient, Other (GUILLERMO Hutchison) LADI MON MD Dec 12, 2024 23:53
[2024-12-13] VITALS (36 sets, daily range): BP systolic 116–195; BP diastolic 62–126; PULSE 85–125; RESP 13–30; TEMP 97.6–100.2; O2SAT 80–100
[2024-12-13 05:05] LABS: Hematocrit 29.4 % (41.0-53.0); Hemoglobin 9.3 g/dL (13.5-17.5); Mean Corpuscular Hemoglobin 25.6 pg (28.0-32.0); Mean Corpuscular Volume 81.2 fL (80.0-100.0); Nucleated Red Blood Cells % 0.1 %
[2024-12-13 05:23] LABS: Chloride 100 mmol/L (98-107); Potassium 4.3 mmol/L (3.5-5.1); Sodium 135 mmol/L (136-145)
[2024-12-13 05:24] LABS: Anion Gap 8 (5-15); Carbon Dioxide 27 mmol/L (20-31)
[2024-12-13 05:29] LABS: BUN/Creatinine Ratio 16.3 (10.0-20.0)
[2024-12-13 05:33] LABS: Blood Urea Nitrogen 7 mg/dL (9-23); Calcium 8.1 mg/dL (8.7-10.4); Glucose 119 mg/dL (74-106)
--- NOTE | 2024-12-13 09:31 | DVHPN2 ---
Subjective Patient denies any symptoms at this time. 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 ([facility]) Changes from previous H/P or p: No Changes General: Per HPI Objective Vitals Vital Signs Date Time Temp Pulse Resp B/P (MAP) Pulse Ox O2 Delivery O2 Flow Rate FiO2 12/13/24 07:09 97 12/13/24 07:00 17 93 12/13/24 06:09 Room Air 12/13/24 06:09 0 21 12/13/24 04:00 97.8 97.8 Intake/Output Intake and Output 12/13/24 07:00 Intake Total 1250.0 ml Output Total 3550 ml Balance -2300.0 ml Intake Oral 1200 ml IV Total 50.0 ml Output Urine Total 3025 ml Stool Total 525 ml Exam Assessed in the recovery area. General Appearance: Alert, Oriented X3, Cooperative, mild distress HEENT: Atraumatic, PERRLA Lungs: Clear to auscultation, Normal air movement, Other (Nasal cannula at 4 L/min) Cardiovascular: Normal S1, Normal S2, Other (Sinus tachycardia) Abdomen: Other (Abdominal wound has dehiscence. Wound VAC placed.) Genitourinary: No Apparent Abnormalities (Hernandez catheter) Musculoskeletal: Normal sensory function, Normal motor function Neuro: Normal gait, Normal speech, Sensation intact, Cranial nerves 3-12 NL Skin: Dry, Intact Psych/Mental Status: Mental status NL, Mood NL Medications Current Medications Medications Dose Ordered Sig/Edis Route Start Time Stop Time Status Last Admin Dose Admin Acetaminophen 650 mg Q6HPRN PRN PO 11/11/24 23:45 12/12/24 22:06 650 MG Piperacillin Sod/ Tazobactam Sod 100 ml @ 25 mls/hr Q8HR IV 11/12/24 06:00 UNV Ondansetron HCl 4 mg Q4HPRN PRN IV 11/12/24 07:45 11/25/24 06:32 4 MG Vancomycin HCl 300 ml @ 200 mls/hr Q12H IV 11/13/24 15:00 UNV Dextrose 50 ml UD IV 11/15/24 12:00 Hydralazine HCl 10 mg Q6HP PRN IV 11/16/24 15:45 12/04/24 16:06 10 MG Fat Emulsion Intravenous 200 ml/Sodium Chloride 80 meq/ Sodium Acetate 40 meq/Potassium Chloride 40 meq/ Potassium Phosphate 22 meq/ Calcium Gluconate 2.3 meq/Magnesium Sulfate 8 meq/ Multivitamins 10 ml/Chromium/ Copper/Manganese/ Zinc 1 ml/Amino Acids/Dextrose 1,582.9462 ml @ 66 mls/hr Q24H IV 11/18/24 22:00 11/19/24 21:59 Cancel Sodium Chloride 10 ml QSHIFT@10,22 IV 11/25/24 22:00 12/12/24 22:07 10 ML Potassium Chloride 100 ml @ 50 mls/hr Q2H IV 11/27/24 11:30 11/27/24 15:29 UNV Albumin Human 50 ml @ 100 mls/hr Q8H IV 11/29/24 07:45 Cancel Ipratropium [place] 0.5 mg Q6HR NEB 12/02/24 09:00 12/13/24 06:09 0.5 MG Levalbuterol HCl 0.625 mg Q6HR NEB 12/02/24 09:00 12/13/24 06:09 0.625 MG Acetaminophen/ Hydrocodone Bitart 1 tab Q4HPRN PRN PO 12/03/24 10:00 12/12/24 16:45 1 TAB Fat Emulsion Intravenous 200 ml/Sodium Chloride 160 meq/ Potassium Acetate 20 meq/Potassium Phosphate 30 meq/ Calcium Gluconate 6 meq/Magnesium Sulfate 24 meq/ Multivitamins 10 ml/Chromium/ Copper/Manganese/ Zinc 1 ml/Amino Acids/Dextrose 1,886.7214 ml @ 78 mls/hr [id number] IV 12/03/24 22:00 12/03/24 22:00 Cancel Carvedilol 25 mg Q12HR PO 12/04/24 22:00 12/12/24 22:07 25 MG Cefepime HCl 50 ml @ 12.5 mls/hr Q8H IV 12/05/24 20:00 12/13/24 04:19 12.5 MLS/HR Daptomycin 630 mg/ Sodium Chloride 50 ml @ 100 mls/hr Q24H IV 12/07/24 23:00 12/12/24 23:00 100 MLS/HR Fluconazole 200 mg DAILY PO 12/10/24 10:00 12/12/24 09:06 200 MG Metronidazole 500 mg Q8HR PO 12/10/24 14:00 12/13/24 06:23 500 MG Apixaban 5 mg BID PO 12/10/24 22:00 12/12/24 22:06 5 MG Pantoprazole Sodium 40 mg DAILY@0600 PO 12/11/24 06:00 12/13/24 06:23 40 MG Melatonin 10 mg HS PRN PO 12/12/24 20:45 12/12/24 22:06 10 MG Laboratory Results Laboratory Tests 12/13/24 04:43 Chemistry Test 12/13/24 04:43 Calcium Level 8.1 mg/dL (8.7-10.4) L Urinalysis Test 11/11/24 20:50 Urine Color Yellow (Yellow) Urine Clarity Clear (Clear) Urine pH 6.0 (5.0-9.0) Urine Specific [place] 1.021 (1.001-1.035) Urine Protein 1+ (Negative) H Urine Ketones Negative (Negative) Urine Blood 2+ /uL (Negative) H Urine Nitrite Negative (Negative) Urine Bilirubin Negative (Negative) Urine Urobilinogen 3 mg/dL (Negative) H Urine Leukocyte Esterase Negative /uL (Negative) Urine RBC 1 /hpf (0 - 3) Urine Microscopic WBC 6 /HPF (0-3) H Urine Squamous Epithelial Cells None seen /hpf (<5) Urine Bacteria None seen /hpf (None Seen) Urine Mucus Few (None Seen) Urine Glucose 1+ mg/dL (Normal) H Microbiology Microbiology Date/Time Source Procedure Growth Status 12/01/24 17:30 Blood Blood Culture - Final NO GROWTH AFTER 5 DAYS OF INCUBATION. Complete 11/22/24 10:15 Abdomen Gram Stain - Final Complete 11/22/24 10:15 Abdomen Anaerobic Culture - Final Complete 11/22/24 10:15 Aerobic Culture - Final Escherichia coli Enterococcus faecium - VRE Complete 11/18/24 10:20 Voided Urine Urine Culture - Final Complete 11/15/24 13:15 Aspirate Gram Stain - Final Complete 11/15/24 13:15 Body Fluid Culture - Final Escherichia coli Complete Assessment/Plan Assessment/Plan Impression: -severe sepsis secondary to perforated diverticulitis -obesity -hypokalemia -hyponatremia -right upper extremity DVT, repeat ultrasound reports resolution -Atelectasis Plan: Events: Plans for discharge today once wound VAC has been exchange. All discharge planning was discussed with the patient. -IV antibiotics: Continue per Infectious Disease -continue diet as tolerated -PPI -pain management -out of bed as tolerated, physical therapy -incentive spirometer -social service consultation for DC planning Total time spent with patient discussing and formulating plan of care: 35 minutes. This medical document was created using an electronic medical record system with [employer] dictation system. Although this document has been carefully reviewed, there may still be some phonetic and typographical errors. These areas are purely typographical due to imperfections of the software programs, and do not reflect any compromise in the patient's medical care. Plan discussed with: Patient, Other (RN) Date of Service: Dec 13, 2024 Billing Provider: SANDRA GOODMAN NP Common Visit Codes: [id number] INP/OBS CARE(HIGH) SANDRA GOODMAN NP Dec 13, 2024 09:31
--- NOTE | 2024-12-13 09:32 | DVHPN2 ---
Subjective Patient denies any symptoms at this time. 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 General Appearance: Alert, Oriented X3, Cooperative, mild distress HEENT: Atraumatic, PERRLA Lungs: Clear to auscultation, Normal air movement, Other (Nasal cannula at 4 L/min) Cardiovascular: Normal S1, Normal S2, Other (Sinus tachycardia) Abdomen: Other (Abdominal wound has dehiscence. Wound VAC placed.) Genitourinary: No Apparent Abnormalities (Hernandez catheter) Musculoskeletal: Normal sensory function, Normal motor function Neuro: Normal gait, Normal speech, Sensation intact, Cranial nerves 3-12 NL Skin: Dry, Intact Psych/Mental Status: Mental status NL, Mood NL Medications Current Medications Medications Dose Ordered Sig/Edis Route Start Time Stop Time Status Last Admin Dose Admin Acetaminophen 650 mg Q6HPRN PRN PO 11/11/24 23:45 12/12/24 22:06 650 MG Piperacillin Sod/ Tazobactam Sod 100 ml @ 25 mls/hr Q8HR IV 11/12/24 06:00 UNV Ondansetron HCl 4 mg Q4HPRN PRN IV 11/12/24 07:45 11/25/24 06:32 4 MG Vancomycin HCl 300 ml @ 200 mls/hr Q12H IV 11/13/24 15:00 UNV Dextrose 50 ml UD IV 11/15/24 12:00 Hydralazine HCl 10 mg Q6HP PRN IV 11/16/24 15:45 12/04/24 16:06 10 MG Fat Emulsion Intravenous 200 ml/Sodium Chloride 80 meq/ Sodium Acetate 40 meq/Potassium Chloride 40 meq/ Potassium Phosphate 22 meq/ Calcium Gluconate 2.3 meq/Magnesium Sulfate 8 meq/ Multivitamins 10 ml/Chromium/ Copper/Manganese/ Zinc 1 ml/Amino Acids/Dextrose 1,582.9462 ml @ 66 mls/hr Q24H IV 11/18/24 22:00 11/19/24 21:59 Cancel Sodium Chloride 10 ml QSHIFT@10,22 IV 11/25/24 22:00 12/12/24 22:07 10 ML Potassium Chloride 100 ml @ 50 mls/hr Q2H IV 11/27/24 11:30 11/27/24 15:29 UNV Albumin Human 50 ml @ 100 mls/hr Q8H IV 11/29/24 07:45 Cancel Ipratropium [place] 0.5 mg Q6HR NEB 12/02/24 09:00 12/13/24 06:09 0.5 MG Levalbuterol HCl 0.625 mg Q6HR NEB 12/02/24 09:00 12/13/24 06:09 0.625 MG Acetaminophen/ Hydrocodone Bitart 1 tab Q4HPRN PRN PO 12/03/24 10:00 12/12/24 16:45 1 TAB Fat Emulsion Intravenous 200 ml/Sodium Chloride 160 meq/ Potassium Acetate 20 meq/Potassium Phosphate 30 meq/ Calcium Gluconate 6 meq/Magnesium Sulfate 24 meq/ Multivitamins 10 ml/Chromium/ Copper/Manganese/ Zinc 1 ml/Amino Acids/Dextrose 1,886.7214 ml @ 78 mls/hr [id number] IV 12/03/24 22:00 12/03/24 22:00 Cancel Carvedilol 25 mg Q12HR PO 12/04/24 22:00 12/12/24 22:07 25 MG Cefepime HCl 50 ml @ 12.5 mls/hr Q8H IV 12/05/24 20:00 12/13/24 04:19 12.5 MLS/HR Daptomycin 630 mg/ Sodium Chloride 50 ml @ 100 mls/hr Q24H IV 12/07/24 23:00 12/12/24 23:00 100 MLS/HR Fluconazole 200 mg DAILY PO 12/10/24 10:00 12/12/24 09:06 200 MG Metronidazole 500 mg Q8HR PO 12/10/24 14:00 12/13/24 06:23 500 MG Apixaban 5 mg BID PO 12/10/24 22:00 12/12/24 22:06 5 MG Pantoprazole Sodium 40 mg DAILY@0600 PO 12/11/24 06:00 12/13/24 06:23 40 MG Melatonin 10 mg HS PRN PO 12/12/24 20:45 12/12/24 22:06 10 MG Laboratory Results Laboratory Tests 12/13/24 04:43 Chemistry Test 12/13/24 04:43 Calcium Level 8.1 mg/dL (8.7-10.4) L Urinalysis Test 11/11/24 20:50 Urine Color Yellow (Yellow) Urine Clarity Clear (Clear) Urine pH 6.0 (5.0-9.0) Urine Specific [place] 1.021 (1.001-1.035) Urine Protein 1+ (Negative) H Urine Ketones Negative (Negative) Urine Blood 2+ /uL (Negative) H Urine Nitrite Negative (Negative) Urine Bilirubin Negative (Negative) Urine Urobilinogen 3 mg/dL (Negative) H Urine Leukocyte Esterase Negative /uL (Negative) Urine RBC 1 /hpf (0 - 3) Urine Microscopic WBC 6 /HPF (0-3) H Urine Squamous Epithelial Cells None seen /hpf (<5) Urine Bacteria None seen /hpf (None Seen) Urine Mucus Few (None Seen) Urine Glucose 1+ mg/dL (Normal) H Microbiology Microbiology Date/Time Source Procedure Growth Status 12/01/24 17:30 Blood Blood Culture - Final NO GROWTH AFTER 5 DAYS OF INCUBATION. Complete 11/22/24 10:15 Abdomen Gram Stain - Final Complete 11/22/24 10:15 Abdomen Anaerobic Culture - Final Complete 11/22/24 10:15 Aerobic Culture - Final Escherichia coli Enterococcus faecium - VRE Complete 11/18/24 10:20 Voided Urine Urine Culture - Final Complete 11/15/24 13:15 Aspirate Gram Stain - Final Complete 11/15/24 13:15 Body Fluid Culture - Final Escherichia coli Complete Assessment/Plan Assessment/Plan Impression: -severe sepsis secondary to perforated diverticulitis -obesity -hypokalemia -hyponatremia -right upper extremity DVT, repeat ultrasound reports resolution -Atelectasis Plan: Events: Plans for discharge today once wound VAC has been exchange. All discharge planning was discussed with the patient. -IV antibiotics: Continue per Infectious Disease -continue diet as tolerated -PPI -pain management -out of bed as tolerated, physical therapy -incentive spirometer -social service consultation for DC planning Total time spent with patient discussing and formulating plan of care: 35 minutes. This medical document was created using an electronic medical record system with [employer] dictation system. Although this document has been carefully reviewed, there may still be some phonetic and typographical errors. These areas are purely typographical due to imperfections of the software programs, and do not reflect any compromise in the patient's medical care. Plan discussed with: Patient, Other (RN) Date of Service: Dec 12, 2024 Billing Provider: SANDRA GOODMAN NP Common Visit Codes: [id number] INP/OBS CARE(HIGH) SANDRA GOODMAN NP Dec 13, 2024 09:32
--- NOTE | 2024-12-13 10:46 | DVHPN2 ---
Progress Note - Dictate Date Seen: Dec 13, 2024 Medical Necessity Reason Pt with a Central, PICC or Fol: Yes The following are medically ne: PICC Line Subjective Patient is expecting to be discharged today once wound VAC has been exchange. vital signs Vital Sign Date Time Temp Pulse Resp B/P (MAP) Pulse Ox O2 Delivery O2 Flow Rate FiO2 12/13/24 10:29 112 133/73 12/13/24 07:00 17 93 12/13/24 06:09 Room Air 12/13/24 06:09 0 21 12/13/24 04:00 97.8 97.8 Total Intake and Output 12/12/24 12/12/24 12/13/24 15:00 23:00 07:00 Intake Total 25.0 ml 985.0 ml 240 ml Output Total 1950 ml 1600 ml Balance 25.0 ml -965.0 ml -1360 ml medications Current Medications Medications Dose Ordered Sig/Edis Route Start Time Stop Time Status Last Admin Dose Admin Acetaminophen 650 mg Q6HPRN PRN PO 11/11/24 23:45 12/12/24 22:06 650 MG Piperacillin Sod/ Tazobactam Sod 100 ml @ 25 mls/hr Q8HR IV 11/12/24 06:00 UNV Ondansetron HCl 4 mg Q4HPRN PRN IV 11/12/24 07:45 11/25/24 06:32 4 MG Vancomycin HCl 300 ml @ 200 mls/hr Q12H IV 11/13/24 15:00 UNV Dextrose 50 ml UD IV 11/15/24 12:00 Hydralazine HCl 10 mg Q6HP PRN IV 11/16/24 15:45 12/04/24 16:06 10 MG Fat Emulsion Intravenous 200 ml/Sodium Chloride 80 meq/ Sodium Acetate 40 meq/Potassium Chloride 40 meq/ Potassium Phosphate 22 meq/ Calcium Gluconate 2.3 meq/Magnesium Sulfate 8 meq/ Multivitamins 10 ml/Chromium/ Copper/Manganese/ Zinc 1 ml/Amino Acids/Dextrose 1,582.9462 ml @ 66 mls/hr Q24H IV 11/18/24 22:00 11/19/24 21:59 Cancel Sodium Chloride 10 ml QSHIFT@10,22 IV 11/25/24 22:00 12/13/24 10:29 10 ML Potassium Chloride 100 ml @ 50 mls/hr Q2H IV 11/27/24 11:30 11/27/24 15:29 UNV Albumin Human 50 ml @ 100 mls/hr Q8H IV 11/29/24 07:45 Cancel Ipratropium [place] 0.5 mg Q6HR NEB 12/02/24 09:00 12/13/24 06:09 0.5 MG Levalbuterol HCl 0.625 mg Q6HR NEB 12/02/24 09:00 12/13/24 06:09 0.625 MG Acetaminophen/ Hydrocodone Bitart 1 tab Q4HPRN PRN PO 12/03/24 10:00 12/12/24 16:45 1 TAB Fat Emulsion Intravenous 200 ml/Sodium Chloride 160 meq/ Potassium Acetate 20 meq/Potassium Phosphate 30 meq/ Calcium Gluconate 6 meq/Magnesium Sulfate 24 meq/ Multivitamins 10 ml/Chromium/ Copper/Manganese/ Zinc 1 ml/Amino Acids/Dextrose 1,886.7214 ml @ 78 mls/hr [id number] IV 12/03/24 22:00 12/03/24 22:00 Cancel Carvedilol 25 mg Q12HR PO 12/04/24 22:00 12/13/24 10:29 25 MG Cefepime HCl 50 ml @ 12.5 mls/hr Q8H IV 12/05/24 20:00 12/13/24 04:19 12.5 MLS/HR Daptomycin 630 mg/ Sodium Chloride 50 ml @ 100 mls/hr Q24H IV 12/07/24 23:00 12/12/24 23:00 100 MLS/HR Fluconazole 200 mg DAILY PO 12/10/24 10:00 12/13/24 10:28 200 MG Metronidazole 500 mg Q8HR PO 12/10/24 14:00 12/13/24 06:23 500 MG Apixaban 5 mg BID PO 12/10/24 22:00 12/13/24 10:27 5 MG Pantoprazole Sodium 40 mg DAILY@0600 PO 12/11/24 06:00 12/13/24 06:23 40 MG Melatonin 10 mg HS PRN PO 12/12/24 20:45 12/12/24 22:06 10 MG objective General Appearance: Alert, Oriented X3, Cooperative, No acute distress obese HEENT: Atraumatic, PERRLA, EOMI, Mucous membrane moist/pink Respiratory: Clear to auscultation, Normal air movement Cardiovascular: Regular rate, Normal S1, Normal S2, No murmurs, no chest wall tenderness Abdominal: s/p abdominal surgery, midline incision site looks ok. has colostomy. 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 wound dehiscence, surgery on board. he has a wound vac too. CT abdomen and pelvis with contrast shows some residual lower abdomen collection,and some ascites. discussed with Dr Zacarias. plan to repeat imaging in 4 weeks will dc IR consult. Arrange IV Daptomycin 600mg daily, IV Cefepime 2g q 8 hours for 3 weeks , oral flagyl 500mg TID and oral Fluconazole 200 mg daily for 2 weeks. Weekly labs cbc with diff, cmp, CPK. labs need to sent to his PCP and [phone] He needs to follow up with surgery /PCP in 3-4 weeks for repeat imaging to decide on further course. HE also needs referral for outpt ID who is in his network for follow up. Overall, since surgery date 11/22, he is anticipated to complete 5 weeks of antibiotics. He has had prolonged hospital stay, currently in [facility]. s/p colon resection on 11/22 s/p colostomy with output. had diverticular abscess with OR cx grew VRE Review of cultures: 11/11, Blood culture showed no growth 11/11, Urine culture showed no growth 11/12, MRSA screening came back negative 11/13, Urine culture showed no growth 11/15, Body fluid culture showed E. coli 11/18, Blood culture showed no growth 11/18, urine culture showed no growth 11/22, OR culture showed E. coli and Enterococcus faecium 11/28, Blood culture showed no growth 12/01, Blood culture preliminary showed no growth Antibiotic status: Cefepime IV [Started on 12/03 - Ongoing] Micafungin IV [Started on 12/01 - Ongoing] Linezolid IV [Started on 11/25 - Ongoing] Meropenem IV [Given on 11/29 - Ongoing] Flagyl IV Started on 11/22 - 11/29] Ceftriaxone IV [Started on 11/25 - 11/29] discussed with Dr Zacarias Thank you for consult Dietary Evaluation Review Comments: To meet at least 75% ofpt's needs, recommend TPN kcal to be increased to 1500-2000kcal range and protein to be increased to 80-90g/d. Expected Outcomes/Goals: Pt will experience a gradual wt loss at this kcal level, yet, the appropriated nutrition support of protein and kcal can enhance pt's GI perforation healing process, and help him regain normal GI functionality MAKENNA STONER MD Dec 13, 2024 10:46
--- NOTE | 2024-12-13 22:03 | DVHPN2 ---
Progress Note - Dictate Date Seen: Dec 13, 2024 Medical Necessity Reason Pt with a Central, PICC or Fol: Yes The following are medically ne: PICC Line Subjective Patient seen and examined at bedside. Remains on supplemental oxygen Overnight events reviewed. vital signs Vital Sign Date Time Temp Pulse Resp B/P (MAP) Pulse Ox O2 Delivery O2 Flow Rate FiO2 12/13/24 20:30 120 29 94 Room Air* 0 21 12/13/24 20:15 100.2 129/63 (85) 100.2 Total Intake and Output 12/12/24 12/12/24 12/13/24 15:00 23:00 07:00 Intake Total 25.0 ml 985.0 ml 340 ml Output Total 1950 ml 1600 ml Balance 25.0 ml -965.0 ml -1260 ml medications Current Medications Medications Dose Ordered Sig/Edis Route Start Time Stop Time Status Last Admin Dose Admin Acetaminophen 650 mg Q6HPRN PRN PO 11/11/24 23:45 12/13/24 20:02 650 MG Piperacillin Sod/ Tazobactam Sod 100 ml @ 25 mls/hr Q8HR IV 11/12/24 06:00 UNV Ondansetron HCl 4 mg Q4HPRN PRN IV 11/12/24 07:45 11/25/24 06:32 4 MG Vancomycin HCl 300 ml @ 200 mls/hr Q12H IV 11/13/24 15:00 UNV Dextrose 50 ml UD IV 11/15/24 12:00 Hydralazine HCl 10 mg Q6HP PRN IV 11/16/24 15:45 12/04/24 16:06 10 MG Fat Emulsion Intravenous 200 ml/Sodium Chloride 80 meq/ Sodium Acetate 40 meq/Potassium Chloride 40 meq/ Potassium Phosphate 22 meq/ Calcium Gluconate 2.3 meq/Magnesium Sulfate 8 meq/ Multivitamins 10 ml/Chromium/ Copper/Manganese/ Zinc 1 ml/Amino Acids/Dextrose 1,582.9462 ml @ 66 mls/hr Q24H IV 11/18/24 22:00 11/19/24 21:59 Cancel Sodium Chloride 10 ml QSHIFT@10,22 IV 11/25/24 22:00 12/13/24 10:29 10 ML Potassium Chloride 100 ml @ 50 mls/hr Q2H IV 11/27/24 11:30 11/27/24 15:29 UNV Albumin Human 50 ml @ 100 mls/hr Q8H IV 11/29/24 07:45 Cancel Ipratropium [place] 0.5 mg Q6HR NEB 12/02/24 09:00 12/13/24 18:41 0.5 MG Levalbuterol HCl 0.625 mg Q6HR NEB 12/02/24 09:00 12/13/24 18:42 0.625 MG Acetaminophen/ Hydrocodone Bitart 1 tab Q4HPRN PRN PO 12/03/24 10:00 12/12/24 16:45 1 TAB Fat Emulsion Intravenous 200 ml/Sodium Chloride 160 meq/ Potassium Acetate 20 meq/Potassium Phosphate 30 meq/ Calcium Gluconate 6 meq/Magnesium Sulfate 24 meq/ Multivitamins 10 ml/Chromium/ Copper/Manganese/ Zinc 1 ml/Amino Acids/Dextrose 1,886.7214 ml @ 78 mls/hr [id number] IV 12/03/24 22:00 12/03/24 22:00 Cancel Carvedilol 25 mg Q12HR PO 12/04/24 22:00 12/13/24 10:29 25 MG Cefepime HCl 50 ml @ 12.5 mls/hr Q8H IV 12/05/24 20:00 12/13/24 19:58 12.5 MLS/HR Daptomycin 630 mg/ Sodium Chloride 50 ml @ 100 mls/hr Q24H IV 12/07/24 23:00 12/12/24 23:00 100 MLS/HR Fluconazole 200 mg DAILY PO 12/10/24 10:00 12/13/24 10:28 200 MG Metronidazole 500 mg Q8HR PO 12/10/24 14:00 12/13/24 14:46 500 MG Apixaban 5 mg BID PO 12/10/24 22:00 12/13/24 10:27 5 MG Pantoprazole Sodium 40 mg DAILY@0600 PO 12/11/24 06:00 12/13/24 06:23 40 MG Melatonin 10 mg HS PRN PO 12/12/24 20:45 12/12/24 22:06 10 MG objective Gen.: Patient lying in bed in no apparent distress. On supplemental oxygen. Head: Normocephalic, atraumatic. Eyes: EOMI/PERRLA. Ears: Normal hearing. Normal anatomy. Neck/trachea: Trachea midline, supple. Nose: Normal external anatomy. Mouth: Moist mucous membranes. Chest: Decreased air entry bilaterally. No wheezing or rhonchi. Cardiovascular: Positive S1, positive S2. Regular rate and rhythm. Abdomen: Positive bowel sounds in all 4 quadrants. Soft, non-tender, non- distended. : Deferred. Rectal: Deferred. Skin: Warm, dry. Intact. Extremities: 2+ radial pulses bilaterally. No lower extremity edema. Neuro: Awake, alert, oriented x3. No gross motor or sensory deficits. Cranial nerves II through XII intact. Gait not assessed. laboratory and microbiology Laboratory Tests 12/13/24 04:43 Test 12/13/24 04:43 Range/Units Serum Glucose 119 H 74-106 mg/dL Assessment/Plan Impression: Acute hypoxemic respiratory failure Dependence on supplemental oxygen Nonocclusive DVT Bowel perforation, s/p colostomy Atelectasis Events: Continues on supplemental oxygen On 2 liters via nasal cannula Taper O2 as tolerated PICC line in place No new complaints Continue antibiotics - complete course ID recommendations appreciated. Incentive spirometry for atelectasis. Pain control Avoid oversedation Wound care. Wound VAC in place. Eliquis BID for DVT ppx Physical therapy. Recommend outpatient sleep study due to suspicion/risk for MARNIE. Disposition per hospitalist. Labs and imaging reviewed Rest of plan as noted below Plan: Supplemental oxygen Titrate to maintain sats above 92% S/p ex lap Surgery recs appreciated Colostomy care. Wound VAC in place. Incentive spirometry Continue antibiotics F/u cultures Bronchodilators Maintain euvolemia Monitor renal function Monitor electrolytes Supplement as needed Pain control Avoid oversedation F/u general surgery DVT prophylaxis Prognosis: Guarded given patient's multiple co-morbidities. Rest of plan per hospitalist and other consultants. Thank you Dr. Payne for allowing me to participate in this patient's care. Further recommendations will depend on the patient's clinical course. Please do not hesitate to contact me if you have any questions or concerns. This medical document was created using an electronic medical record system with [employer] system. Although these documentations are being carefully reviewed, there may still be some phonetic and typographical changes. The errors are purely typographical, due to imperfection on the software program, and do not reflect any compromise in the patient's medical care. Dietary Evaluation Review Comments: To meet at least 75% ofpt's needs, recommend TPN kcal to be increased to 1500-2000kcal range and protein to be increased to 80-90g/d. Expected Outcomes/Goals: Pt will experience a gradual wt loss at this kcal level, yet, the appropriated nutrition support of protein and kcal can enhance pt's GI perforation healing process, and help him regain normal GI functionality Plan discussed with: Patient, Other (GUILLERMO Pulido) LADI MON MD Dec 13, 2024 22:03
[2024-12-14] VITALS (17 sets, daily range): BP systolic 105–136; BP diastolic 62–93; PULSE 69–120; RESP 16–22; TEMP 97.5–98.4; O2SAT 91–100
[2024-12-14 05:35] LABS: Hematocrit 28.8 % (41.0-53.0); Hemoglobin 9.4 g/dL (13.5-17.5); Mean Corpuscular Hemoglobin 26.4 pg (28.0-32.0); Mean Corpuscular Volume 80.6 fL (80.0-100.0); Nucleated Red Blood Cells % 0.0 %
[2024-12-14 05:45] LABS: Chloride 100 mmol/L (98-107); Potassium 4.3 mmol/L (3.5-5.1)
[2024-12-14 05:46] LABS: Anion Gap 6 (5-15); Carbon Dioxide 27 mmol/L (20-31)
[2024-12-14 05:51] LABS: BUN/Creatinine Ratio 16.3 (10.0-20.0)
[2024-12-14 05:57] LABS: Blood Urea Nitrogen 7 mg/dL (9-23); Glucose 115 mg/dL (74-106); Sodium 133 mmol/L (136-145)
[2024-12-14 05:58] LABS: Calcium 8.1 mg/dL (8.7-10.4)
--- NOTE | 2024-12-14 12:40 | DVHPN2 ---
Subjective dc in place. 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) Changes from previous H/P or p: No Changes General: Per HPI Objective Vitals Vital Signs Date Time Temp Pulse Resp B/P (MAP) Pulse Ox O2 Delivery O2 Flow Rate FiO2 12/14/24 12:00 96 112/82 12/14/24 11:30 18 100 12/14/24 11:24 Room Air* 0 21 12/14/24 08:51 97.6 97.6 Intake/Output Intake and Output 12/14/24 07:00 Intake Total 1365.5 ml Output Total 2480 ml Balance -1114.5 ml Intake Oral 1300 ml IV Total 65.5 ml Output Urine Total 2180 ml Stool Total 300 ml # Voids 5 # Bowel Movements 100 General Appearance: Alert, Oriented X3, Cooperative, mild distress HEENT: Atraumatic, PERRLA Lungs: Clear to auscultation, Normal air movement, Other (Nasal cannula at 4 L/min) Cardiovascular: Normal S1, Normal S2, Other (Sinus tachycardia) Abdomen: Other (Abdominal wound has dehiscence. Wound VAC placed.) Genitourinary: No Apparent Abnormalities (Hernandez catheter) Musculoskeletal: Normal sensory function, Normal motor function Neuro: Normal gait, Normal speech, Sensation intact, Cranial nerves 3-12 NL Skin: Dry, Intact Psych/Mental Status: Mental status NL, Mood NL Medications Current Medications Medications Dose Ordered Sig/Edis Route Start Time Stop Time Status Last Admin Dose Admin Acetaminophen 650 mg Q6HPRN PRN PO 11/11/24 23:45 12/13/24 20:02 650 MG Piperacillin Sod/ Tazobactam Sod 100 ml @ 25 mls/hr Q8HR IV 11/12/24 06:00 UNV Ondansetron HCl 4 mg Q4HPRN PRN IV 11/12/24 07:45 11/25/24 06:32 4 MG Vancomycin HCl 300 ml @ 200 mls/hr Q12H IV 11/13/24 15:00 UNV Dextrose 50 ml UD IV 11/15/24 12:00 Hydralazine HCl 10 mg Q6HP PRN IV 11/16/24 15:45 12/04/24 16:06 10 MG Fat Emulsion Intravenous 200 ml/Sodium Chloride 80 meq/ Sodium Acetate 40 meq/Potassium Chloride 40 meq/ Potassium Phosphate 22 meq/ Calcium Gluconate 2.3 meq/Magnesium Sulfate 8 meq/ Multivitamins 10 ml/Chromium/ Copper/Manganese/ Zinc 1 ml/Amino Acids/Dextrose 1,582.9462 ml @ 66 mls/hr Q24H IV 11/18/24 22:00 11/19/24 21:59 Cancel Sodium Chloride 10 ml QSHIFT@10,22 IV 11/25/24 22:00 12/14/24 09:32 10 ML Potassium Chloride 100 ml @ 50 mls/hr Q2H IV 11/27/24 11:30 11/27/24 15:29 UNV Albumin Human 50 ml @ 100 mls/hr Q8H IV 11/29/24 07:45 Cancel Ipratropium [place] 0.5 mg Q6HR NEB 12/02/24 09:00 12/14/24 11:24 0.5 MG Levalbuterol HCl 0.625 mg Q6HR NEB 12/02/24 09:00 12/14/24 11:24 0.625 MG Acetaminophen/ Hydrocodone Bitart 1 tab Q4HPRN PRN PO 12/03/24 10:00 12/12/24 16:45 1 TAB Fat Emulsion Intravenous 200 ml/Sodium Chloride 160 meq/ Potassium Acetate 20 meq/Potassium Phosphate 30 meq/ Calcium Gluconate 6 meq/Magnesium Sulfate 24 meq/ Multivitamins 10 ml/Chromium/ Copper/Manganese/ Zinc 1 ml/Amino Acids/Dextrose 1,886.7214 ml @ 78 mls/hr [id number] IV 12/03/24 22:00 12/03/24 22:00 Cancel Carvedilol 25 mg Q12HR PO 12/04/24 22:00 12/14/24 09:33 25 MG Cefepime HCl 50 ml @ 12.5 mls/hr Q8H IV 12/05/24 20:00 12/14/24 12:27 12.5 MLS/HR Daptomycin 630 mg/ Sodium Chloride 50 ml @ 100 mls/hr Q24H IV 12/07/24 23:00 12/13/24 23:23 100 MLS/HR Fluconazole 200 mg DAILY PO 12/10/24 10:00 12/14/24 09:33 200 MG Metronidazole 500 mg Q8HR PO 12/10/24 14:00 12/14/24 05:05 500 MG Apixaban 5 mg BID PO 12/10/24 22:00 12/14/24 09:33 5 MG Pantoprazole Sodium 40 mg DAILY@0600 PO 12/11/24 06:00 12/14/24 05:05 40 MG Melatonin 10 mg HS PRN PO 12/12/24 20:45 12/14/24 03:08 10 MG Laboratory Results Laboratory Tests 12/14/24 04:50 Chemistry Test 12/14/24 04:50 Calcium Level 8.1 mg/dL (8.7-10.4) L Urinalysis Test 11/11/24 20:50 Urine Color Yellow (Yellow) Urine Clarity Clear (Clear) Urine pH 6.0 (5.0-9.0) Urine Specific [place] 1.021 (1.001-1.035) Urine Protein 1+ (Negative) H Urine Ketones Negative (Negative) Urine Blood 2+ /uL (Negative) H Urine Nitrite Negative (Negative) Urine Bilirubin Negative (Negative) Urine Urobilinogen 3 mg/dL (Negative) H Urine Leukocyte Esterase Negative /uL (Negative) Urine RBC 1 /hpf (0 - 3) Urine Microscopic WBC 6 /HPF (0-3) H Urine Squamous Epithelial Cells None seen /hpf (<5) Urine Bacteria None seen /hpf (None Seen) Urine Mucus Few (None Seen) Urine Glucose 1+ mg/dL (Normal) H Microbiology Microbiology Date/Time Source Procedure Growth Status 12/01/24 17:30 Blood Blood Culture - Final NO GROWTH AFTER 5 DAYS OF INCUBATION. Complete 11/22/24 10:15 Abdomen Gram Stain - Final Complete 11/22/24 10:15 Abdomen Anaerobic Culture - Final Complete 11/22/24 10:15 Aerobic Culture - Final Escherichia coli Enterococcus faecium - VRE Complete 11/18/24 10:20 Voided Urine Urine Culture - Final Complete 11/15/24 13:15 Aspirate Gram Stain - Final Complete 11/15/24 13:15 Body Fluid Culture - Final Escherichia coli Complete Assessment/Plan Assessment/Plan Impression: -severe sepsis secondary to perforated diverticulitis -obesity -hypokalemia -hyponatremia -right upper extremity DVT, repeat ultrasound reports resolution -Atelectasis Plan: Events: Plans for discharge today once wound VAC has been exchange. All discharge planning was discussed with the patient. -IV antibiotics: Continue per Infectious Disease -continue diet as tolerated -PPI -pain management -out of bed as tolerated, physical therapy -incentive spirometer -social service consultation for DC planning Plan discussed with: Patient Date of Service: Dec 14, 2024 Billing Provider: PADMINI SYKES MD Common Visit Codes: [id number] INP/OBS CARE(HIGH) PADMINI SYKES MD Dec 14, 2024 12:40
--- NOTE | 2024-12-14 23:14 | DVHPN2 ---
Progress Note - Dictate Date Seen: Dec 14, 2024 Medical Necessity Reason Pt with a Central, PICC or Fol: Yes The following are medically ne: PICC Line Subjective Patient seen and examined at bedside. Breathing comfortably on room air Overnight events reviewed. vital signs Vital Sign Date Time Temp Pulse Resp B/P (MAP) Pulse Ox O2 Delivery O2 Flow Rate FiO2 12/14/24 21:43 120 12/14/24 21:00 97.5 20 117/93 (101) 97 97.5 12/14/24 20:00 Room Air* 0 21 Total Intake and Output 12/13/24 12/13/24 12/14/24 15:00 23:00 07:00 Intake Total 123 ml 422.5 ml 820 ml Output Total 200 ml 1480 ml 800 ml Balance -77 ml -1057.5 ml 20 ml medications Current Medications Medications Dose Ordered Sig/Edis Route Start Time Stop Time Status Last Admin Dose Admin Acetaminophen 650 mg Q6HPRN PRN PO 11/11/24 23:45 12/13/24 20:02 650 MG Piperacillin Sod/ Tazobactam Sod 100 ml @ 25 mls/hr Q8HR IV 11/12/24 06:00 UNV Ondansetron HCl 4 mg Q4HPRN PRN IV 11/12/24 07:45 11/25/24 06:32 4 MG Vancomycin HCl 300 ml @ 200 mls/hr Q12H IV 11/13/24 15:00 UNV Dextrose 50 ml UD IV 11/15/24 12:00 Hydralazine HCl 10 mg Q6HP PRN IV 11/16/24 15:45 12/04/24 16:06 10 MG Fat Emulsion Intravenous 200 ml/Sodium Chloride 80 meq/ Sodium Acetate 40 meq/Potassium Chloride 40 meq/ Potassium Phosphate 22 meq/ Calcium Gluconate 2.3 meq/Magnesium Sulfate 8 meq/ Multivitamins 10 ml/Chromium/ Copper/Manganese/ Zinc 1 ml/Amino Acids/Dextrose 1,582.9462 ml @ 66 mls/hr Q24H IV 11/18/24 22:00 11/19/24 21:59 Cancel Sodium Chloride 10 ml QSHIFT@10,22 IV 11/25/24 22:00 12/14/24 21:45 10 ML Potassium Chloride 100 ml @ 50 mls/hr Q2H IV 11/27/24 11:30 11/27/24 15:29 UNV Albumin Human 50 ml @ 100 mls/hr Q8H IV 11/29/24 07:45 Cancel Ipratropium [place] 0.5 mg Q6HR NEB 12/02/24 09:00 12/14/24 11:24 0.5 MG Levalbuterol HCl 0.625 mg Q6HR NEB 12/02/24 09:00 12/14/24 11:24 0.625 MG Acetaminophen/ Hydrocodone Bitart 1 tab Q4HPRN PRN PO 12/03/24 10:00 12/14/24 16:51 1 TAB Fat Emulsion Intravenous 200 ml/Sodium Chloride 160 meq/ Potassium Acetate 20 meq/Potassium Phosphate 30 meq/ Calcium Gluconate 6 meq/Magnesium Sulfate 24 meq/ Multivitamins 10 ml/Chromium/ Copper/Manganese/ Zinc 1 ml/Amino Acids/Dextrose 1,886.7214 ml @ 78 mls/hr [id number] IV 12/03/24 22:00 12/03/24 22:00 Cancel Carvedilol 25 mg Q12HR PO 12/04/24 22:00 12/14/24 21:43 25 MG Cefepime HCl 50 ml @ 12.5 mls/hr Q8H IV 12/05/24 20:00 12/14/24 20:09 12.5 MLS/HR Daptomycin 630 mg/ Sodium Chloride 50 ml @ 100 mls/hr Q24H IV 12/07/24 23:00 12/13/24 23:23 100 MLS/HR Fluconazole 200 mg DAILY PO 12/10/24 10:00 12/14/24 09:33 200 MG Metronidazole 500 mg Q8HR PO 12/10/24 14:00 12/14/24 21:43 500 MG Apixaban 5 mg BID PO 12/10/24 22:00 12/14/24 21:43 5 MG Pantoprazole Sodium 40 mg DAILY@0600 PO 12/11/24 06:00 12/14/24 05:05 40 MG Melatonin 10 mg HS PRN PO 12/12/24 20:45 12/14/24 03:08 10 MG objective Gen.: Patient lying in bed in no apparent distress. On room air. Head: Normocephalic, atraumatic. Eyes: EOMI/PERRLA. Ears: Normal hearing. Normal anatomy. Neck/trachea: Trachea midline, supple. Nose: Normal external anatomy. Mouth: Moist mucous membranes. Chest: Decreased air entry bilaterally. No wheezing or rhonchi. Cardiovascular: Positive S1, positive S2. Regular rate and rhythm. Abdomen: Positive bowel sounds in all 4 quadrants. Soft, non-tender, non- distended. : Deferred. Rectal: Deferred. Skin: Warm, dry. Intact. Extremities: 2+ radial pulses bilaterally. No lower extremity edema. Neuro: Awake, alert, oriented x3. No gross motor or sensory deficits. Cranial nerves II through XII intact. Gait not assessed. laboratory and microbiology Laboratory Tests 12/14/24 04:50 Test 12/14/24 04:50 Range/Units Serum Glucose 115 H 74-106 mg/dL Assessment/Plan Impression: Acute hypoxemic respiratory failure Nonocclusive DVT Bowel perforation, s/p colostomy Atelectasis Events: Currently on room air. Supplemental oxygen PRN PICC line in place No new complaints Continue antibiotics - complete course WC elevated at 12.1 K ID recommendations appreciated. Incentive spirometry for atelectasis. Pain control Avoid oversedation Wound care. Wound VAC in place. Eliquis BID for DVT ppx Physical therapy. Recommend outpatient sleep study due to suspicion/risk for MARNIE. Disposition per hospitalist. Labs and imaging reviewed Rest of plan as noted below Plan: Supplemental oxygen PRN Titrate to maintain sats above 92% S/p ex lap Surgery recs appreciated Colostomy care. Wound VAC in place. Incentive spirometry Continue antibiotics F/u cultures Bronchodilators Maintain euvolemia Monitor renal function Monitor electrolytes Supplement as needed Pain control Avoid oversedation F/u general surgery DVT prophylaxis Prognosis: Guarded given patient's multiple co-morbidities. Rest of plan per hospitalist and other consultants. Thank you Dr. Payne for allowing me to participate in this patient's care. Further recommendations will depend on the patient's clinical course. Please do not hesitate to contact me if you have any questions or concerns. This medical document was created using an electronic medical record system with [employer]ation system. Although these documentations are being carefully reviewed, there may still be some phonetic and typographical changes. The errors are purely typographical, due to imperfection on the software program, and do not reflect any compromise in the patient's medical care. Dietary Evaluation Review Comments: To meet at least 75% ofpt's needs, recommend TPN kcal to be increased to 1500-2000kcal range and protein to be increased to 80-90g/d. Expected Outcomes/Goals: Pt will experience a gradual wt loss at this kcal level, yet, the appropriated nutrition support of protein and kcal can enhance pt's GI perforation healing process, and help him regain normal GI functionality Plan discussed with: Patient, Other (GUILLERMO Nelson) LADI MON MD Dec 14, 2024 23:14
[2024-12-15] VITALS (15 sets, daily range): BP systolic 102–118; BP diastolic 69–85; PULSE 99–115; RESP 16–20; TEMP 97.2–98.4; O2SAT 94–100
--- NOTE | 2024-12-15 16:23 | DVHPN2 ---
Subjective dc in place. still pending iv abx home and woundvac. 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[employer]) Changes from previous H/P or p: No Changes General: Per HPI Objective Vitals Vital Signs Date Time Temp Pulse Resp B/P (MAP) Pulse Ox O2 Delivery O2 Flow Rate FiO2 12/15/24 13:04 97.2 104 19 109/85 (93) 94 97.2 12/15/24 09:29 0.0 21 12/15/24 08:00 Room Air* Intake/Output Intake and Output 12/15/24 07:00 Intake Total 905 ml Output Total 1400 ml Balance -495 ml Intake Oral 875 ml IV Total 30 ml Output Urine Total 800 ml Stool Total 600 ml # Voids 4 General Appearance: Alert, Oriented X3, Cooperative, mild distress HEENT: Atraumatic, PERRLA Lungs: Clear to auscultation, Normal air movement, Other (Nasal cannula at 4 L/min) Cardiovascular: Normal S1, Normal S2, Other (Sinus tachycardia) Abdomen: Other (Abdominal wound has dehiscence. Wound VAC placed.) Genitourinary: No Apparent Abnormalities (Hernandez catheter) Musculoskeletal: Normal sensory function, Normal motor function Neuro: Normal gait, Normal speech, Sensation intact, Cranial nerves 3-12 NL Skin: Dry, Intact Psych/Mental Status: Mental status NL, Mood NL Medications Current Medications Medications Dose Ordered Sig/Edis Route Start Time Stop Time Status Last Admin Dose Admin Acetaminophen 650 mg Q6HPRN PRN PO 11/11/24 23:45 12/13/24 20:02 650 MG Piperacillin Sod/ Tazobactam Sod 100 ml @ 25 mls/hr Q8HR IV 11/12/24 06:00 UNV Ondansetron HCl 4 mg Q4HPRN PRN IV 11/12/24 07:45 11/25/24 06:32 4 MG Vancomycin HCl 300 ml @ 200 mls/hr Q12H IV 11/13/24 15:00 UNV Dextrose 50 ml UD IV 11/15/24 12:00 Hydralazine HCl 10 mg Q6HP PRN IV 11/16/24 15:45 12/04/24 16:06 10 MG Fat Emulsion Intravenous 200 ml/Sodium Chloride 80 meq/ Sodium Acetate 40 meq/Potassium Chloride 40 meq/ Potassium Phosphate 22 meq/ Calcium Gluconate 2.3 meq/Magnesium Sulfate 8 meq/ Multivitamins 10 ml/Chromium/ Copper/Manganese/ Zinc 1 ml/Amino Acids/Dextrose 1,582.9462 ml @ 66 mls/hr Q24H IV 11/18/24 22:00 11/19/24 21:59 Cancel Sodium Chloride 10 ml QSHIFT@10,22 IV 11/25/24 22:00 12/15/24 08:56 10 ML Potassium Chloride 100 ml @ 50 mls/hr Q2H IV 11/27/24 11:30 11/27/24 15:29 UNV Albumin Human 50 ml @ 100 mls/hr Q8H IV 11/29/24 07:45 Cancel Ipratropium [place] 0.5 mg Q6HR NEB 12/02/24 09:00 12/15/24 11:36 0.5 MG Levalbuterol HCl 0.625 mg Q6HR NEB 12/02/24 09:00 12/15/24 11:36 0.625 MG Acetaminophen/ Hydrocodone Bitart 1 tab Q4HPRN PRN PO 12/03/24 10:00 12/15/24 15:03 1 TAB Fat Emulsion Intravenous 200 ml/Sodium Chloride 160 meq/ Potassium Acetate 20 meq/Potassium Phosphate 30 meq/ Calcium Gluconate 6 meq/Magnesium Sulfate 24 meq/ Multivitamins 10 ml/Chromium/ Copper/Manganese/ Zinc 1 ml/Amino Acids/Dextrose 1,886.7214 ml @ 78 mls/hr [id number] IV 12/03/24 22:00 12/03/24 22:00 Cancel Carvedilol 25 mg Q12HR PO 12/04/24 22:00 12/15/24 08:56 25 MG Cefepime HCl 50 ml @ 12.5 mls/hr Q8H IV 12/05/24 20:00 12/15/24 11:34 12.5 MLS/HR Daptomycin 630 mg/ Sodium Chloride 50 ml @ 100 mls/hr Q24H IV 12/07/24 23:00 12/14/24 23:24 100 MLS/HR Fluconazole 200 mg DAILY PO 12/10/24 10:00 12/15/24 08:56 200 MG Metronidazole 500 mg Q8HR PO 12/10/24 14:00 12/15/24 15:03 500 MG Apixaban 5 mg BID PO 12/10/24 22:00 12/15/24 08:55 5 MG Pantoprazole Sodium 40 mg DAILY@0600 PO 12/11/24 06:00 12/15/24 05:37 40 MG Melatonin 10 mg HS PRN PO 12/12/24 20:45 12/14/24 03:08 10 MG Laboratory Results Laboratory Tests 12/14/24 04:50 Urinalysis Test 11/11/24 20:50 Urine Color Yellow (Yellow) Urine Clarity Clear (Clear) Urine pH 6.0 (5.0-9.0) Urine Specific [place] 1.021 (1.001-1.035) Urine Protein 1+ (Negative) H Urine Ketones Negative (Negative) Urine Blood 2+ /uL (Negative) H Urine Nitrite Negative (Negative) Urine Bilirubin Negative (Negative) Urine Urobilinogen 3 mg/dL (Negative) H Urine Leukocyte Esterase Negative /uL (Negative) Urine RBC 1 /hpf (0 - 3) Urine Microscopic WBC 6 /HPF (0-3) H Urine Squamous Epithelial Cells None seen /hpf (<5) Urine Bacteria None seen /hpf (None Seen) Urine Mucus Few (None Seen) Urine Glucose 1+ mg/dL (Normal) H Microbiology Microbiology Date/Time Source Procedure Growth Status 12/01/24 17:30 Blood Blood Culture - Final NO GROWTH AFTER 5 DAYS OF INCUBATION. Complete 11/22/24 10:15 Abdomen Gram Stain - Final Complete 11/22/24 10:15 Abdomen Anaerobic Culture - Final Complete 11/22/24 10:15 Aerobic Culture - Final Escherichia coli Enterococcus faecium - VRE Complete 11/18/24 10:20 Voided Urine Urine Culture - Final Complete 11/15/24 13:15 Aspirate Gram Stain - Final Complete 11/15/24 13:15 Body Fluid Culture - Final Escherichia coli Complete Assessment/Plan Assessment/Plan Impression: -severe sepsis secondary to perforated diverticulitis -obesity -hypokalemia -hyponatremia -right upper extremity DVT, repeat ultrasound reports resolution -Atelectasis Plan: Events: Plans for discharge today once wound VAC has been exchange. All discharge planning was discussed with the patient. -IV antibiotics: Continue per Infectious Disease -continue diet as tolerated -PPI -pain management -out of bed as tolerated, physical therapy -incentive spirometer -social service consultation for DC planning Plan discussed with: Patient Date of Service: Dec 15, 2024 Billing Provider: PADMINI SYKES MD Common Visit Codes: [id number] INP/OBS CARE(MOD) PADMINI SYKES MD Dec 15, 2024 16:23
--- NOTE | 2024-12-15 22:22 | DVHPN2 ---
Progress Note - Dictate Date Seen: Dec 15, 2024 Medical Necessity Reason Pt with a Central, PICC or Fol: Yes The following are medically ne: PICC Line Subjective Patient seen and examined at bedside. Breathing comfortably on room air Overnight events reviewed. vital signs Vital Sign Date Time Temp Pulse Resp B/P (MAP) Pulse Ox O2 Delivery O2 Flow Rate FiO2 12/15/24 21:35 115 102/70 12/15/24 21:00 98.2 20 94 98.2 12/15/24 20:00 Room Air* 0 21 Total Intake and Output 12/14/24 12/14/24 12/15/24 15:00 23:00 07:00 Intake Total 30 ml 500 ml 375 ml Output Total 1400 ml Balance 30 ml -900 ml 375 ml medications Current Medications Medications Dose Ordered Sig/Edis Route Start Time Stop Time Status Last Admin Dose Admin Acetaminophen 650 mg Q6HPRN PRN PO 11/11/24 23:45 12/13/24 20:02 650 MG Piperacillin Sod/ Tazobactam Sod 100 ml @ 25 mls/hr Q8HR IV 11/12/24 06:00 UNV Ondansetron HCl 4 mg Q4HPRN PRN IV 11/12/24 07:45 11/25/24 06:32 4 MG Vancomycin HCl 300 ml @ 200 mls/hr Q12H IV 11/13/24 15:00 UNV Dextrose 50 ml UD IV 11/15/24 12:00 Hydralazine HCl 10 mg Q6HP PRN IV 11/16/24 15:45 12/04/24 16:06 10 MG Fat Emulsion Intravenous 200 ml/Sodium Chloride 80 meq/ Sodium Acetate 40 meq/Potassium Chloride 40 meq/ Potassium Phosphate 22 meq/ Calcium Gluconate 2.3 meq/Magnesium Sulfate 8 meq/ Multivitamins 10 ml/Chromium/ Copper/Manganese/ Zinc 1 ml/Amino Acids/Dextrose 1,582.9462 ml @ 66 mls/hr Q24H IV 11/18/24 22:00 11/19/24 21:59 Cancel Sodium Chloride 10 ml QSHIFT@10,22 IV 11/25/24 22:00 12/15/24 21:36 10 ML Potassium Chloride 100 ml @ 50 mls/hr Q2H IV 11/27/24 11:30 11/27/24 15:29 UNV Albumin Human 50 ml @ 100 mls/hr Q8H IV 11/29/24 07:45 Cancel Ipratropium [place] 0.5 mg Q6HR NEB 12/02/24 09:00 12/15/24 19:34 0.5 MG Levalbuterol HCl 0.625 mg Q6HR NEB 12/02/24 09:00 12/15/24 19:35 0.625 MG Acetaminophen/ Hydrocodone Bitart 1 tab Q4HPRN PRN PO 12/03/24 10:00 12/15/24 15:03 1 TAB Fat Emulsion Intravenous 200 ml/Sodium Chloride 160 meq/ Potassium Acetate 20 meq/Potassium Phosphate 30 meq/ Calcium Gluconate 6 meq/Magnesium Sulfate 24 meq/ Multivitamins 10 ml/Chromium/ Copper/Manganese/ Zinc 1 ml/Amino Acids/Dextrose 1,886.7214 ml @ 78 mls/hr [id number] IV 12/03/24 22:00 12/03/24 22:00 Cancel Carvedilol 25 mg Q12HR PO 12/04/24 22:00 12/15/24 21:35 25 MG Cefepime HCl 50 ml @ 12.5 mls/hr Q8H IV 12/05/24 20:00 12/15/24 20:22 12.5 MLS/HR Daptomycin 630 mg/ Sodium Chloride 50 ml @ 100 mls/hr Q24H IV 12/07/24 23:00 12/14/24 23:24 100 MLS/HR Fluconazole 200 mg DAILY PO 12/10/24 10:00 12/15/24 08:56 200 MG Metronidazole 500 mg Q8HR PO 12/10/24 14:00 12/15/24 21:34 500 MG Apixaban 5 mg BID PO 12/10/24 22:00 12/15/24 21:35 5 MG Pantoprazole Sodium 40 mg DAILY@0600 PO 12/11/24 06:00 12/15/24 05:37 40 MG Melatonin 10 mg HS PRN PO 12/12/24 20:45 12/14/24 03:08 10 MG objective Gen.: Patient lying in bed in no apparent distress. On room air. Head: Normocephalic, atraumatic. Eyes: EOMI/PERRLA. Ears: Normal hearing. Normal anatomy. Neck/trachea: Trachea midline, supple. Nose: Normal external anatomy. Mouth: Moist mucous membranes. Chest: Decreased air entry bilaterally. No wheezing or rhonchi. Cardiovascular: Positive S1, positive S2. Regular rate and rhythm. Abdomen: Positive bowel sounds in all 4 quadrants. Soft, non-tender, non- distended. : Deferred. Rectal: Deferred. Skin: Warm, dry. Intact. Extremities: 2+ radial pulses bilaterally. No lower extremity edema. Neuro: Awake, alert, oriented x3. No gross motor or sensory deficits. Cranial nerves II through XII intact. Gait not assessed. laboratory and microbiology Laboratory Tests 12/14/24 04:50 Test 12/14/24 04:50 Range/Units Serum Glucose 115 H 74-106 mg/dL Assessment/Plan Impression: Acute hypoxemic respiratory failure Nonocclusive DVT Bowel perforation, s/p colostomy Atelectasis Events: Remains on room air. Supplemental oxygen PRN PICC line in place No new complaints. Continue antibiotics - complete course Monitor WBC Antifungal with fluconazole ID recommendations appreciated. Incentive spirometry for atelectasis. Pain control Avoid oversedation Wound care. Wound VAC in place. Eliquis BID for DVT ppx Protonix for GI ppx Physical therapy. Recommend outpatient sleep study due to suspicion/risk for MARNIE. Disposition per hospitalist. Labs and imaging reviewed Rest of plan as noted below Plan: Supplemental oxygen PRN Titrate to maintain sats above 92% S/p ex lap Surgery recs appreciated Colostomy care. Wound VAC in place. Incentive spirometry Continue antibiotics F/u cultures Bronchodilators Maintain euvolemia Monitor renal function Monitor electrolytes Supplement as needed Pain control Avoid oversedation F/u general surgery DVT prophylaxis Prognosis: Guarded given patient's multiple co-morbidities. Rest of plan per hospitalist and other consultants. Thank you Dr. Payne for allowing me to participate in this patient's care. Further recommendations will depend on the patient's clinical course. Please do not hesitate to contact me if you have any questions or concerns. This medical document was created using an electronic medical record system with [employer] system. Although these documentations are being carefully reviewed, there may still be some phonetic and typographical changes. The errors are purely typographical, due to imperfection on the software program, and do not reflect any compromise in the patient's medical care. Dietary Evaluation Review Comments: To meet at least 75% ofpt's needs, recommend TPN kcal to be increased to 1500-2000kcal range and protein to be increased to 80-90g/d. Expected Outcomes/Goals: Pt will experience a gradual wt loss at this kcal level, yet, the appropriated nutrition support of protein and kcal can enhance pt's GI perforation healing process, and help him regain normal GI functionality Plan discussed with: Patient, Other (GUILLERMO Fatima) LADI MON MD Dec 15, 2024 22:22
[2024-12-16] VITALS (16 sets, daily range): BP systolic 102–132; BP diastolic 73–90; PULSE 90–116; RESP 17–20; TEMP 97.4–98.8; O2SAT 93–100
--- NOTE | 2024-12-16 14:21 | DVHPN2 ---
Subjective NAEON, pending home abx and woundvac bedside. stable to dc once ready. 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) Changes from previous H/P or p: No Changes General: Per HPI Objective Vitals Vital Signs Date Time Temp Pulse Resp B/P (MAP) Pulse Ox O2 Delivery O2 Flow Rate FiO2 12/16/24 12:40 97.8 101 18 132/86 (101) 94 97.8 12/16/24 08:00 Room Air* 0 21 Intake/Output Intake and Output 12/16/24 07:00 Intake Total 2714 ml Output Total 2400 ml Balance 314 ml Intake Oral 2614 ml IV Total 100 ml Output Urine Total 2400 ml # Bowel Movements 1 General Appearance: Alert, Oriented X3, Cooperative, mild distress HEENT: Atraumatic, PERRLA Lungs: Clear to auscultation, Normal air movement, Other (Nasal cannula at 4 L/min) Cardiovascular: Normal S1, Normal S2, Other (Sinus tachycardia) Abdomen: Other (Abdominal wound has dehiscence. Wound VAC placed.) Genitourinary: No Apparent Abnormalities (Hernandez catheter) Musculoskeletal: Normal sensory function, Normal motor function Neuro: Normal gait, Normal speech, Sensation intact, Cranial nerves 3-12 NL Skin: Dry, Intact Psych/Mental Status: Mental status NL, Mood NL Medications Current Medications Medications Dose Ordered Sig/Edis Route Start Time Stop Time Status Last Admin Dose Admin Acetaminophen 650 mg Q6HPRN PRN PO 11/11/24 23:45 12/13/24 20:02 650 MG Piperacillin Sod/ Tazobactam Sod 100 ml @ 25 mls/hr Q8HR IV 11/12/24 06:00 UNV Ondansetron HCl 4 mg Q4HPRN PRN IV 11/12/24 07:45 11/25/24 06:32 4 MG Vancomycin HCl 300 ml @ 200 mls/hr Q12H IV 11/13/24 15:00 UNV Dextrose 50 ml UD IV 11/15/24 12:00 Hydralazine HCl 10 mg Q6HP PRN IV 11/16/24 15:45 12/04/24 16:06 10 MG Fat Emulsion Intravenous 200 ml/Sodium Chloride 80 meq/ Sodium Acetate 40 meq/Potassium Chloride 40 meq/ Potassium Phosphate 22 meq/ Calcium Gluconate 2.3 meq/Magnesium Sulfate 8 meq/ Multivitamins 10 ml/Chromium/ Copper/Manganese/ Zinc 1 ml/Amino Acids/Dextrose 1,582.9462 ml @ 66 mls/hr Q24H IV 11/18/24 22:00 11/19/24 21:59 Cancel Sodium Chloride 10 ml QSHIFT@10,22 IV 11/25/24 22:00 12/16/24 08:53 10 ML Potassium Chloride 100 ml @ 50 mls/hr Q2H IV 11/27/24 11:30 11/27/24 15:29 UNV Albumin Human 50 ml @ 100 mls/hr Q8H IV 11/29/24 07:45 Cancel Ipratropium [place] 0.5 mg Q6HR NEB 12/02/24 09:00 12/16/24 11:37 0.5 MG Levalbuterol HCl 0.625 mg Q6HR NEB 12/02/24 09:00 12/16/24 11:37 0.625 MG Acetaminophen/ Hydrocodone Bitart 1 tab Q4HPRN PRN PO 12/03/24 10:00 12/15/24 22:56 1 TAB Fat Emulsion Intravenous 200 ml/Sodium Chloride 160 meq/ Potassium Acetate 20 meq/Potassium Phosphate 30 meq/ Calcium Gluconate 6 meq/Magnesium Sulfate 24 meq/ Multivitamins 10 ml/Chromium/ Copper/Manganese/ Zinc 1 ml/Amino Acids/Dextrose 1,886.7214 ml @ 78 mls/hr [id number] IV 12/03/24 22:00 12/03/24 22:00 Cancel Carvedilol 25 mg Q12HR PO 12/04/24 22:00 12/16/24 08:53 25 MG Cefepime HCl 50 ml @ 12.5 mls/hr Q8H IV 12/05/24 20:00 12/16/24 11:56 12.5 MLS/HR Daptomycin 630 mg/ Sodium Chloride 50 ml @ 100 mls/hr Q24H IV 12/07/24 23:00 12/15/24 22:53 100 MLS/HR Fluconazole 200 mg DAILY PO 12/10/24 10:00 12/16/24 08:52 200 MG Metronidazole 500 mg Q8HR PO 12/10/24 14:00 12/16/24 06:03 500 MG Apixaban 5 mg BID PO 12/10/24 22:00 12/16/24 08:52 5 MG Pantoprazole Sodium 40 mg DAILY@0600 PO 12/11/24 06:00 12/16/24 06:03 40 MG Melatonin 10 mg HS PRN PO 12/12/24 20:45 12/14/24 03:08 10 MG Laboratory Results Laboratory Tests 12/14/24 04:50 Urinalysis Test 11/11/24 20:50 Urine Color Yellow (Yellow) Urine Clarity Clear (Clear) Urine pH 6.0 (5.0-9.0) Urine Specific [place] 1.021 (1.001-1.035) Urine Protein 1+ (Negative) H Urine Ketones Negative (Negative) Urine Blood 2+ /uL (Negative) H Urine Nitrite Negative (Negative) Urine Bilirubin Negative (Negative) Urine Urobilinogen 3 mg/dL (Negative) H Urine Leukocyte Esterase Negative /uL (Negative) Urine RBC 1 /hpf (0 - 3) Urine Microscopic WBC 6 /HPF (0-3) H Urine Squamous Epithelial Cells None seen /hpf (<5) Urine Bacteria None seen /hpf (None Seen) Urine Mucus Few (None Seen) Urine Glucose 1+ mg/dL (Normal) H Microbiology Microbiology Date/Time Source Procedure Growth Status 12/01/24 17:30 Blood Blood Culture - Final NO GROWTH AFTER 5 DAYS OF INCUBATION. Complete 11/22/24 10:15 Abdomen Gram Stain - Final Complete 11/22/24 10:15 Abdomen Anaerobic Culture - Final Complete 11/22/24 10:15 Aerobic Culture - Final Escherichia coli Enterococcus faecium - VRE Complete 11/18/24 10:20 Voided Urine Urine Culture - Final Complete 11/15/24 13:15 Aspirate Gram Stain - Final Complete 11/15/24 13:15 Body Fluid Culture - Final Escherichia coli Complete Assessment/Plan Assessment/Plan Impression: -severe sepsis secondary to perforated diverticulitis -obesity -hypokalemia -hyponatremia -right upper extremity DVT, repeat ultrasound reports resolution -Atelectasis Plan: Events: Plans for discharge today once wound VAC has been exchange. All discharge planning was discussed with the patient. -IV antibiotics: Continue per Infectious Disease -continue diet as tolerated -PPI -pain management -out of bed as tolerated, physical therapy -incentive spirometer -social service consultation for DC planning Plan discussed with: Patient Date of Service: Dec 16, 2024 Billing Provider: PADMINI SYKES MD Common Visit Codes: [id number] INP/OBS CARE(MOD) PADMINI SYKES MD Dec 16, 2024 14:21
[2024-12-17] VITALS (14 sets, daily range): BP systolic 105–142; BP diastolic 64–81; PULSE 76–113; RESP 16–20; TEMP 96.9–99.2; O2SAT 93–100
--- NOTE | 2024-12-17 00:01 | DVHPN2 ---
Progress Note - Dictate Date Seen: Dec 16, 2024 Medical Necessity Reason Pt with a Central, PICC or Fol: Yes The following are medically ne: PICC Line Subjective Patient seen and examined at bedside. Breathing comfortably on room air Overnight events reviewed. vital signs Vital Sign Date Time Temp Pulse Resp B/P (MAP) Pulse Ox O2 Delivery O2 Flow Rate FiO2 12/16/24 21:35 105 117/78 12/16/24 19:06 18 100 12/16/24 18:58 Room Air* 0 21 12/16/24 16:32 97.9 97.9 medications Current Medications Medications Dose Ordered Sig/Edis Route Start Time Stop Time Status Last Admin Dose Admin Acetaminophen 650 mg Q6HPRN PRN PO 11/11/24 23:45 12/13/24 20:02 650 MG Piperacillin Sod/ Tazobactam Sod 100 ml @ 25 mls/hr Q8HR IV 11/12/24 06:00 UNV Ondansetron HCl 4 mg Q4HPRN PRN IV 11/12/24 07:45 11/25/24 06:32 4 MG Vancomycin HCl 300 ml @ 200 mls/hr Q12H IV 11/13/24 15:00 UNV Dextrose 50 ml UD IV 11/15/24 12:00 Fat Emulsion Intravenous 200 ml/Sodium Chloride 80 meq/ Sodium Acetate 40 meq/Potassium Chloride 40 meq/ Potassium Phosphate 22 meq/ Calcium Gluconate 2.3 meq/Magnesium Sulfate 8 meq/ Multivitamins 10 ml/Chromium/ Copper/Manganese/ Zinc 1 ml/Amino Acids/Dextrose 1,582.9462 ml @ 66 mls/hr Q24H IV 11/18/24 22:00 11/19/24 21:59 Cancel Sodium Chloride 10 ml QSHIFT@10,22 IV 11/25/24 22:00 12/16/24 21:37 10 ML Potassium Chloride 100 ml @ 50 mls/hr Q2H IV 11/27/24 11:30 11/27/24 15:29 UNV Albumin Human 50 ml @ 100 mls/hr Q8H IV 11/29/24 07:45 Cancel Ipratropium [place] 0.5 mg Q6HR NEB 12/02/24 09:00 12/16/24 18:58 0.5 MG Levalbuterol HCl 0.625 mg Q6HR NEB 12/02/24 09:00 12/16/24 18:58 0.625 MG Acetaminophen/ Hydrocodone Bitart 1 tab Q4HPRN PRN PO 12/03/24 10:00 12/16/24 21:27 1 TAB Fat Emulsion Intravenous 200 ml/Sodium Chloride 160 meq/ Potassium Acetate 20 meq/Potassium Phosphate 30 meq/ Calcium Gluconate 6 meq/Magnesium Sulfate 24 meq/ Multivitamins 10 ml/Chromium/ Copper/Manganese/ Zinc 1 ml/Amino Acids/Dextrose 1,886.7214 ml @ 78 mls/hr [id number] IV 12/03/24 22:00 12/03/24 22:00 Cancel Carvedilol 25 mg Q12HR PO 12/04/24 22:00 12/16/24 21:35 25 MG Cefepime HCl 50 ml @ 12.5 mls/hr Q8H IV 12/05/24 20:00 12/16/24 21:26 12.5 MLS/HR Daptomycin 630 mg/ Sodium Chloride 50 ml @ 100 mls/hr Q24H IV 12/07/24 23:00 12/15/24 22:53 100 MLS/HR Fluconazole 200 mg DAILY PO 12/10/24 10:00 12/16/24 08:52 200 MG Metronidazole 500 mg Q8HR PO 12/10/24 14:00 12/16/24 21:27 500 MG Apixaban 5 mg BID PO 12/10/24 22:00 12/16/24 21:27 5 MG Pantoprazole Sodium 40 mg DAILY@0600 PO 12/11/24 06:00 12/16/24 06:03 40 MG Melatonin 10 mg HS PRN PO 12/12/24 20:45 12/14/24 03:08 10 MG objective Gen.: Patient lying in bed in no apparent distress. On room air. Head: Normocephalic, atraumatic. Eyes: EOMI/PERRLA. Ears: Normal hearing. Normal anatomy. Neck/trachea: Trachea midline, supple. Nose: Normal external anatomy. Mouth: Moist mucous membranes. Chest: Decreased air entry bilaterally. No wheezing or rhonchi. Cardiovascular: Positive S1, positive S2. Regular rate and rhythm. Abdomen: Positive bowel sounds in all 4 quadrants. Soft, non-tender, non- distended. : Deferred. Rectal: Deferred. Skin: Warm, dry. Intact. Extremities: 2+ radial pulses bilaterally. No lower extremity edema. Neuro: Awake, alert, oriented x3. No gross motor or sensory deficits. Cranial nerves II through XII intact. Gait not assessed. laboratory and microbiology Laboratory Tests 12/14/24 04:50 Test 12/14/24 04:50 Range/Units Serum Glucose 115 H 74-106 mg/dL Assessment/Plan Impression: Acute hypoxemic respiratory failure Nonocclusive DVT Bowel perforation, s/p colostomy Atelectasis Events: Remains on room air. Supplemental oxygen PRN PICC line in place No new complaints. Continue antibiotics - complete course Monitor WBC Antifungal with fluconazole ID recommendations appreciated. Incentive spirometry for atelectasis. Pain control Avoid oversedation Wound care. Wound VAC in place. Eliquis BID for DVT ppx Protonix for GI ppx Physical therapy. Patient is stable for discharge from the pulmonary standpoint. Recommend outpatient sleep study due to suspicion/risk for MARNIE. Disposition per hospitalist. Labs and imaging reviewed Rest of plan as noted below Plan: Supplemental oxygen PRN Titrate to maintain sats above 92% S/p ex lap Surgery recs appreciated Colostomy care. Wound VAC in place. Incentive spirometry Continue antibiotics F/u cultures Bronchodilators Maintain euvolemia Monitor renal function Monitor electrolytes Supplement as needed Pain control Avoid oversedation F/u general surgery DVT prophylaxis Prognosis: Guarded given patient's multiple co-morbidities. Rest of plan per hospitalist and other consultants. Thank you Dr. Payne for allowing me to participate in this patient's care. Further recommendations will depend on the patient's clinical course. Please do not hesitate to contact me if you have any questions or concerns. This medical document was created using an electronic medical record system with [employer] dictation system. Although these documentations are being carefully reviewed, there may still be some phonetic and typographical changes. The errors are purely typographical, due to imperfection on the software program, and do not reflect any compromise in the patient's medical care. Dietary Evaluation Review Comments: To meet at least 75% ofpt's needs, recommend TPN kcal to be increased to 1500-2000kcal range and protein to be increased to 80-90g/d. Expected Outcomes/Goals: Pt will experience a gradual wt loss at this kcal level, yet, the appropriated nutrition support of protein and kcal can enhance pt's GI perforation healing process, and help him regain normal GI functionality Plan discussed with: Patient, Other (RN) LADI MON MD Dec 17, 2024 00:01
--- NOTE | 2024-12-17 12:55 | DVHPN2 ---
Subjective Patient denies any symptoms at this time. 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 General Appearance: Alert, Oriented X3, Cooperative, mild distress HEENT: Atraumatic, PERRLA Lungs: Clear to auscultation, Normal air movement, Other (Nasal cannula at 4 L/min) Cardiovascular: Normal S1, Normal S2, Other (Sinus tachycardia) Abdomen: Other (Abdominal wound has dehiscence. Wound VAC placed.) Genitourinary: No Apparent Abnormalities (Hernandez catheter) Musculoskeletal: Normal sensory function, Normal motor function Neuro: Normal gait, Normal speech, Sensation intact, Cranial nerves 3-12 NL Skin: Dry, Intact Psych/Mental Status: Mental status NL, Mood NL Medications Current Medications Medications Dose Ordered Sig/Edis Route Start Time Stop Time Status Last Admin Dose Admin Acetaminophen 650 mg Q6HPRN PRN PO 11/11/24 23:45 12/13/24 20:02 650 MG Piperacillin Sod/ Tazobactam Sod 100 ml @ 25 mls/hr Q8HR IV 11/12/24 06:00 UNV Ondansetron HCl 4 mg Q4HPRN PRN IV 11/12/24 07:45 11/25/24 06:32 4 MG Vancomycin HCl 300 ml @ 200 mls/hr Q12H IV 11/13/24 15:00 UNV Dextrose 50 ml UD IV 11/15/24 12:00 Fat Emulsion Intravenous 200 ml/Sodium Chloride 80 meq/ Sodium Acetate 40 meq/Potassium Chloride 40 meq/ Potassium Phosphate 22 meq/ Calcium Gluconate 2.3 meq/Magnesium Sulfate 8 meq/ Multivitamins 10 ml/Chromium/ Copper/Manganese/ Zinc 1 ml/Amino Acids/Dextrose 1,582.9462 ml @ 66 mls/hr Q24H IV 11/18/24 22:00 11/19/24 21:59 Cancel Sodium Chloride 10 ml QSHIFT@10,22 IV 11/25/24 22:00 12/17/24 09:25 10 ML Potassium Chloride 100 ml @ 50 mls/hr Q2H IV 11/27/24 11:30 11/27/24 15:29 UNV Albumin Human 50 ml @ 100 mls/hr Q8H IV 11/29/24 07:45 Cancel Ipratropium [place] 0.5 mg Q6HR NEB 12/02/24 09:00 12/17/24 12:00 0.5 MG Levalbuterol HCl 0.625 mg Q6HR NEB 12/02/24 09:00 12/17/24 12:00 0.625 MG Acetaminophen/ Hydrocodone Bitart 1 tab Q4HPRN PRN PO 12/03/24 10:00 12/16/24 21:27 1 TAB Fat Emulsion Intravenous 200 ml/Sodium Chloride 160 meq/ Potassium Acetate 20 meq/Potassium Phosphate 30 meq/ Calcium Gluconate 6 meq/Magnesium Sulfate 24 meq/ Multivitamins 10 ml/Chromium/ Copper/Manganese/ Zinc 1 ml/Amino Acids/Dextrose 1,886.7214 ml @ 78 mls/hr [id number] IV 12/03/24 22:00 12/03/24 22:00 Cancel Carvedilol 25 mg Q12HR PO 12/04/24 22:00 12/17/24 09:25 25 MG Cefepime HCl 50 ml @ 12.5 mls/hr Q8H IV 12/05/24 20:00 12/17/24 10:58 12.5 MLS/HR Daptomycin 630 mg/ Sodium Chloride 50 ml @ 100 mls/hr Q24H IV 12/07/24 23:00 12/16/24 23:30 100 MLS/HR Fluconazole 200 mg DAILY PO 12/10/24 10:00 12/17/24 09:24 200 MG Metronidazole 500 mg Q8HR PO 12/10/24 14:00 12/17/24 05:26 500 MG Apixaban 5 mg BID PO 12/10/24 22:00 12/17/24 09:24 5 MG Pantoprazole Sodium 40 mg DAILY@0600 PO 12/11/24 06:00 12/17/24 05:26 40 MG Melatonin 10 mg HS PRN PO 12/12/24 20:45 12/14/24 03:08 10 MG Laboratory Results Laboratory Tests 12/14/24 04:50 Urinalysis Test 11/11/24 20:50 Urine Color Yellow (Yellow) Urine Clarity Clear (Clear) Urine pH 6.0 (5.0-9.0) Urine Specific [place] 1.021 (1.001-1.035) Urine Protein 1+ (Negative) H Urine Ketones Negative (Negative) Urine Blood 2+ /uL (Negative) H Urine Nitrite Negative (Negative) Urine Bilirubin Negative (Negative) Urine Urobilinogen 3 mg/dL (Negative) H Urine Leukocyte Esterase Negative /uL (Negative) Urine RBC 1 /hpf (0 - 3) Urine Microscopic WBC 6 /HPF (0-3) H Urine Squamous Epithelial Cells None seen /hpf (<5) Urine Bacteria None seen /hpf (None Seen) Urine Mucus Few (None Seen) Urine Glucose 1+ mg/dL (Normal) H Microbiology Microbiology Date/Time Source Procedure Growth Status 12/01/24 17:30 Blood Blood Culture - Final NO GROWTH AFTER 5 DAYS OF INCUBATION. Complete 11/22/24 10:15 Abdomen Gram Stain - Final Complete 11/22/24 10:15 Abdomen Anaerobic Culture - Final Complete 11/22/24 10:15 Aerobic Culture - Final Escherichia coli Enterococcus faecium - VRE Complete 11/18/24 10:20 Voided Urine Urine Culture - Final Complete 11/15/24 13:15 Aspirate Gram Stain - Final Complete 11/15/24 13:15 Body Fluid Culture - Final Escherichia coli Complete Labs and/or images reviewed: Labs reviewed by me, Image(s) reviewed by me Assessment/Plan Assessment/Plan Impression: -severe sepsis secondary to perforated diverticulitis -obesity -hypokalemia -hyponatremia -right upper extremity DVT, repeat ultrasound reports resolution -Atelectasis Plan: Events: Plans for discharge today once wound VAC has been exchange. All discharge planning was discussed with the patient. -IV antibiotics: Continue per Infectious Disease -continue diet as tolerated -PPI -pain management -out of bed as tolerated, physical therapy -incentive spirometer -social service consultation for DC planning Total time spent with patient discussing and formulating plan of care: 35 minutes. This medical document was created using an electronic medical record system with [employer] dictation system. Although this document has been carefully reviewed, there may still be some phonetic and typographical errors. These areas are purely typographical due to imperfections of the software programs, and do not reflect any compromise in the patient's medical care. Plan discussed with: Patient, Other (RN) Date of Service: Dec 17, 2024 Billing Provider: SANDRA GOODMAN NP Common Visit Codes: [id number] INP/OBS CARE(MOD) SANDRA GOODMAN NP Dec 17, 2024 12:54
--- NOTE | 2024-12-17 13:00 | DVHPN2 ---
Progress Note - Dictate Date Seen: Dec 17, 2024 Medical Necessity Reason Pt with a Central, PICC or Fol: Yes The following are medically ne: PICC Line Subjective Patient was downgraded to the floor. Colostomy is functional ; drainage tube was removed Wound vac for wound dehiscence and drainage. vital signs Vital Sign Date Time Temp Pulse Resp B/P (MAP) Pulse Ox O2 Delivery O2 Flow Rate FiO2 12/17/24 12:53 98.2 102 18 115/81 (92) 93 98.2 12/17/24 12:02 Room Air* 0 21 Total Intake and Output 12/16/24 12/16/24 12/17/24 15:00 23:00 07:00 Intake Total 425 ml 1040 ml Output Total 1000 ml Balance 425 ml 40 ml medications Current Medications Medications Dose Ordered Sig/Edis Route Start Time Stop Time Status Last Admin Dose Admin Acetaminophen 650 mg Q6HPRN PRN PO 11/11/24 23:45 12/13/24 20:02 650 MG Piperacillin Sod/ Tazobactam Sod 100 ml @ 25 mls/hr Q8HR IV 11/12/24 06:00 UNV Ondansetron HCl 4 mg Q4HPRN PRN IV 11/12/24 07:45 11/25/24 06:32 4 MG Vancomycin HCl 300 ml @ 200 mls/hr Q12H IV 11/13/24 15:00 UNV Dextrose 50 ml UD IV 11/15/24 12:00 Fat Emulsion Intravenous 200 ml/Sodium Chloride 80 meq/ Sodium Acetate 40 meq/Potassium Chloride 40 meq/ Potassium Phosphate 22 meq/ Calcium Gluconate 2.3 meq/Magnesium Sulfate 8 meq/ Multivitamins 10 ml/Chromium/ Copper/Manganese/ Zinc 1 ml/Amino Acids/Dextrose 1,582.9462 ml @ 66 mls/hr Q24H IV 11/18/24 22:00 11/19/24 21:59 Cancel Sodium Chloride 10 ml QSHIFT@10,22 IV 11/25/24 22:00 12/17/24 09:25 10 ML Potassium Chloride 100 ml @ 50 mls/hr Q2H IV 11/27/24 11:30 11/27/24 15:29 UNV Albumin Human 50 ml @ 100 mls/hr Q8H IV 11/29/24 07:45 Cancel Ipratropium [place] 0.5 mg Q6HR NEB 12/02/24 09:00 12/17/24 12:00 0.5 MG Levalbuterol HCl 0.625 mg Q6HR NEB 12/02/24 09:00 12/17/24 12:00 0.625 MG Acetaminophen/ Hydrocodone Bitart 1 tab Q4HPRN PRN PO 12/03/24 10:00 12/16/24 21:27 1 TAB Fat Emulsion Intravenous 200 ml/Sodium Chloride 160 meq/ Potassium Acetate 20 meq/Potassium Phosphate 30 meq/ Calcium Gluconate 6 meq/Magnesium Sulfate 24 meq/ Multivitamins 10 ml/Chromium/ Copper/Manganese/ Zinc 1 ml/Amino Acids/Dextrose 1,886.7214 ml @ 78 mls/hr [id number] IV 12/03/24 22:00 12/03/24 22:00 Cancel Carvedilol 25 mg Q12HR PO 12/04/24 22:00 12/17/24 09:25 25 MG Cefepime HCl 50 ml @ 12.5 mls/hr Q8H IV 12/05/24 20:00 12/17/24 10:58 12.5 MLS/HR Daptomycin 630 mg/ Sodium Chloride 50 ml @ 100 mls/hr Q24H IV 12/07/24 23:00 12/16/24 23:30 100 MLS/HR Fluconazole 200 mg DAILY PO 12/10/24 10:00 12/17/24 09:24 200 MG Metronidazole 500 mg Q8HR PO 12/10/24 14:00 12/17/24 05:26 500 MG Apixaban 5 mg BID PO 12/10/24 22:00 12/17/24 09:24 5 MG Pantoprazole Sodium 40 mg DAILY@0600 PO 12/11/24 06:00 12/17/24 05:26 40 MG Melatonin 10 mg HS PRN PO 12/12/24 20:45 12/14/24 03:08 10 MG objective General Appearance: Alert, Oriented X3, Cooperative, No acute distress obese HEENT: Atraumatic, PERRLA, EOMI, Mucous membrane moist/pink Respiratory: Clear to auscultation, Normal air movement Cardiovascular: Regular rate, Normal S1, Normal S2, No murmurs, no chest wall tenderness Abdominal: s/p abdominal surgery, midline incision site looks ok. has colostomy. 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 he has a wound vac too. CT abdomen and pelvis with contrast shows some residual lower abdomen collection,and some ascites. discussed with Dr Zacarias. plan to repeat imaging in 4 weeks will dc IR consult. Arrange IV Daptomycin 600mg daily, IV Cefepime 2g q 8 hours for 3 weeks , oral flagyl 500mg TID and oral Fluconazole 200 mg daily for 2 weeks. Weekly labs cbc with diff, cmp, CPK. labs need to sent to his PCP and [phone] He needs to follow up with surgery /PCP in 3-4 weeks for repeat imaging to decide on further course. HE also needs referral for outpt ID who is in his network for follow up. Overall, since surgery date 11/22, he is anticipated to complete 5 weeks of antibiotics. He has had prolonged hospital stay, currently in [facility]. s/p colon resection on 11/22 s/p colostomy with output. had diverticular abscess with OR cx grew VRE Review of cultures: 11/11, Blood culture showed no growth 11/11, Urine culture showed no growth 11/12, MRSA screening came back negative 11/13, Urine culture showed no growth 11/15, Body fluid culture showed E. coli 11/18, Blood culture showed no growth 11/18, urine culture showed no growth 11/22, OR culture showed E. coli and Enterococcus faecium 11/28, Blood culture showed no growth 12/01, Blood culture preliminary showed no growth Antibiotic status: Cefepime IV [Started on 12/03 - Ongoing] Micafungin IV [Started on 12/01 - Ongoing] Linezolid IV [Started on 11/25 - Ongoing] Meropenem IV [Given on 11/29 - Ongoing] Flagyl IV Started on 11/22 - 11/29] Ceftriaxone IV [Started on 11/25 - 11/29] discussed with Dr Zacarias Thank you for consult Dietary Evaluation Review Comments: To meet at least 75% ofpt's needs, recommend TPN kcal to be increased to 1500-2000kcal range and protein to be increased to 80-90g/d. Expected Outcomes/Goals: Pt will experience a gradual wt loss at this kcal level, yet, the appropriated nutrition support of protein and kcal can enhance pt's GI perforation healing process, and help him regain normal GI functionality MAKENNA STONER MD Dec 17, 2024 13:00
--- NOTE | 2024-12-17 17:26 | DVHPN2 ---
Progress Note - Dictate Date Seen: Dec 17, 2024 Medical Necessity Reason Pt with a Central, PICC or Fol: Yes The following are medically ne: PICC Line Subjective Patient was downgraded to the floor He is awake alert ambulatory and feels much better Colostomy is functional ; drainage tube was removed Wound vac for wound dehiscence and drainage Ascites and pleural effusion Pt is tolerating a diet vital signs Vital Sign Date Time Temp Pulse Resp B/P (MAP) Pulse Ox O2 Delivery O2 Flow Rate FiO2 12/17/24 12:53 98.2 102 18 115/81 (92) 93 98.2 12/17/24 12:02 Room Air* 0 21 Total Intake and Output 12/16/24 12/16/24 12/17/24 15:00 23:00 07:00 Intake Total 425 ml 1040 ml Output Total 1000 ml Balance 425 ml 40 ml medications Current Medications Medications Dose Ordered Sig/Edis Route Start Time Stop Time Status Last Admin Dose Admin Acetaminophen 650 mg Q6HPRN PRN PO 11/11/24 23:45 12/13/24 20:02 650 MG Piperacillin Sod/ Tazobactam Sod 100 ml @ 25 mls/hr Q8HR IV 11/12/24 06:00 UNV Ondansetron HCl 4 mg Q4HPRN PRN IV 11/12/24 07:45 11/25/24 06:32 4 MG Vancomycin HCl 300 ml @ 200 mls/hr Q12H IV 11/13/24 15:00 UNV Dextrose 50 ml UD IV 11/15/24 12:00 Fat Emulsion Intravenous 200 ml/Sodium Chloride 80 meq/ Sodium Acetate 40 meq/Potassium Chloride 40 meq/ Potassium Phosphate 22 meq/ Calcium Gluconate 2.3 meq/Magnesium Sulfate 8 meq/ Multivitamins 10 ml/Chromium/ Copper/Manganese/ Zinc 1 ml/Amino Acids/Dextrose 1,582.9462 ml @ 66 mls/hr Q24H IV 11/18/24 22:00 11/19/24 21:59 Cancel Sodium Chloride 10 ml QSHIFT@10,22 IV 11/25/24 22:00 12/17/24 09:25 10 ML Potassium Chloride 100 ml @ 50 mls/hr Q2H IV 11/27/24 11:30 11/27/24 15:29 UNV Albumin Human 50 ml @ 100 mls/hr Q8H IV 11/29/24 07:45 Cancel Ipratropium [place] 0.5 mg Q6HR NEB 12/02/24 09:00 12/17/24 12:00 0.5 MG Levalbuterol HCl 0.625 mg Q6HR NEB 12/02/24 09:00 12/17/24 12:00 0.625 MG Acetaminophen/ Hydrocodone Bitart 1 tab Q4HPRN PRN PO 12/03/24 10:00 12/16/24 21:27 1 TAB Fat Emulsion Intravenous 200 ml/Sodium Chloride 160 meq/ Potassium Acetate 20 meq/Potassium Phosphate 30 meq/ Calcium Gluconate 6 meq/Magnesium Sulfate 24 meq/ Multivitamins 10 ml/Chromium/ Copper/Manganese/ Zinc 1 ml/Amino Acids/Dextrose 1,886.7214 ml @ 78 mls/hr [id number] IV 12/03/24 22:00 12/03/24 22:00 Cancel Carvedilol 25 mg Q12HR PO 12/04/24 22:00 12/17/24 09:25 25 MG Cefepime HCl 50 ml @ 12.5 mls/hr Q8H IV 12/05/24 20:00 12/17/24 10:58 12.5 MLS/HR Daptomycin 630 mg/ Sodium Chloride 50 ml @ 100 mls/hr Q24H IV 12/07/24 23:00 12/16/24 23:30 100 MLS/HR Fluconazole 200 mg DAILY PO 12/10/24 10:00 12/17/24 09:24 200 MG Metronidazole 500 mg Q8HR PO 12/10/24 14:00 12/17/24 13:15 500 MG Apixaban 5 mg BID PO 12/10/24 22:00 12/17/24 09:24 5 MG Pantoprazole Sodium 40 mg DAILY@0600 PO 12/11/24 06:00 12/17/24 05:26 40 MG Melatonin 10 mg HS PRN PO 12/12/24 20:45 12/14/24 03:08 10 MG objective General Appearance: Alert, Oriented X3, Cooperative, No acute distress HEENT: Atraumatic, PERRLA Lungs: Clear to auscultation Cardiovascular: Regular rate Abdomen: Normal bowel sounds; drainage tube in place Musculoskeletal: Normal sensory function, Normal motor function Neuro: Cranial nerves 3-12 NL Skin: Dry, Intact Psych/Mental Status: Mental status NL, Mood NL laboratory and microbiology Laboratory Tests 12/14/24 04:50 Test 12/14/24 04:50 Range/Units Serum Glucose 115 H 74-106 mg/dL Problems(with codes): (1) History of open sigmoidectomy (2) Diverticulitis large intestine (3) Abnormal finding on GI tract imaging (4) Abscess of sigmoid colon due to diverticulitis Prognosis Plan Continue supportive care Discharge planning is in progress Patient was advised to follow up in my office in 6-8 weeks to discuss elective colonoscopy Surgical follow up to discuss elective reversal of colostomy in 3-6 months Dietary Evaluation Review Comments: To meet at least 75% ofpt's needs, recommend TPN kcal to be increased to 1500-2000kcal range and protein to be increased to 80-90g/d. Expected Outcomes/Goals: Pt will experience a gradual wt loss at this kcal level, yet, the appropriated nutrition support of protein and kcal can enhance pt's GI perforation healing process, and help him regain normal GI functionality Plan discussed with: Patient DAVONTE BILLY MD Dec 17, 2024 17:26
--- NOTE | 2024-12-17 23:51 | DVHPN2 ---
Progress Note - Dictate Date Seen: Dec 17, 2024 Medical Necessity Reason Pt with a Central, PICC or Fol: Yes The following are medically ne: PICC Line Subjective Patient seen and examined at bedside. Breathing comfortably on room air Overnight events reviewed. vital signs Vital Sign Date Time Temp Pulse Resp B/P (MAP) Pulse Ox O2 Delivery O2 Flow Rate FiO2 12/17/24 21:44 113 105/64 12/17/24 21:00 98.0 20 93 98.0 12/17/24 19:57 Room Air* 0 21 Total Intake and Output 12/16/24 12/16/24 12/17/24 15:00 23:00 07:00 Intake Total 425 ml 1040 ml Output Total 1000 ml Balance 425 ml 40 ml medications Current Medications Medications Dose Ordered Sig/Edis Route Start Time Stop Time Status Last Admin Dose Admin Acetaminophen 650 mg Q6HPRN PRN PO 11/11/24 23:45 12/13/24 20:02 650 MG Piperacillin Sod/ Tazobactam Sod 100 ml @ 25 mls/hr Q8HR IV 11/12/24 06:00 UNV Ondansetron HCl 4 mg Q4HPRN PRN IV 11/12/24 07:45 11/25/24 06:32 4 MG Vancomycin HCl 300 ml @ 200 mls/hr Q12H IV 11/13/24 15:00 UNV Dextrose 50 ml UD IV 11/15/24 12:00 Fat Emulsion Intravenous 200 ml/Sodium Chloride 80 meq/ Sodium Acetate 40 meq/Potassium Chloride 40 meq/ Potassium Phosphate 22 meq/ Calcium Gluconate 2.3 meq/Magnesium Sulfate 8 meq/ Multivitamins 10 ml/Chromium/ Copper/Manganese/ Zinc 1 ml/Amino Acids/Dextrose 1,582.9462 ml @ 66 mls/hr Q24H IV 11/18/24 22:00 11/19/24 21:59 Cancel Sodium Chloride 10 ml QSHIFT@10,22 IV 11/25/24 22:00 12/17/24 21:43 10 ML Potassium Chloride 100 ml @ 50 mls/hr Q2H IV 11/27/24 11:30 11/27/24 15:29 UNV Albumin Human 50 ml @ 100 mls/hr Q8H IV 11/29/24 07:45 Cancel Ipratropium [place] 0.5 mg Q6HR NEB 12/02/24 09:00 12/17/24 19:57 0.5 MG Levalbuterol HCl 0.625 mg Q6HR NEB 12/02/24 09:00 12/17/24 19:57 0.625 MG Acetaminophen/ Hydrocodone Bitart 1 tab Q4HPRN PRN PO 12/03/24 10:00 12/16/24 21:27 1 TAB Fat Emulsion Intravenous 200 ml/Sodium Chloride 160 meq/ Potassium Acetate 20 meq/Potassium Phosphate 30 meq/ Calcium Gluconate 6 meq/Magnesium Sulfate 24 meq/ Multivitamins 10 ml/Chromium/ Copper/Manganese/ Zinc 1 ml/Amino Acids/Dextrose 1,886.7214 ml @ 78 mls/hr [id number] IV 12/03/24 22:00 12/03/24 22:00 Cancel Carvedilol 25 mg Q12HR PO 12/04/24 22:00 12/17/24 21:44 25 MG Cefepime HCl 50 ml @ 12.5 mls/hr Q8H IV 12/05/24 20:00 12/17/24 19:57 12.5 MLS/HR Daptomycin 630 mg/ Sodium Chloride 50 ml @ 100 mls/hr Q24H IV 12/07/24 23:00 12/17/24 23:11 100 MLS/HR Fluconazole 200 mg DAILY PO 12/10/24 10:00 12/17/24 09:24 200 MG Metronidazole 500 mg Q8HR PO 12/10/24 14:00 12/17/24 21:43 500 MG Apixaban 5 mg BID PO 12/10/24 22:00 12/17/24 21:43 5 MG Pantoprazole Sodium 40 mg DAILY@0600 PO 12/11/24 06:00 12/17/24 05:26 40 MG Melatonin 10 mg HS PRN PO 12/12/24 20:45 12/14/24 03:08 10 MG objective Gen.: Patient lying in bed in no apparent distress. On room air. Head: Normocephalic, atraumatic. Eyes: EOMI/PERRLA. Ears: Normal hearing. Normal anatomy. Neck/trachea: Trachea midline, supple. Nose: Normal external anatomy. Mouth: Moist mucous membranes. Chest: Decreased air entry bilaterally. No wheezing or rhonchi. Cardiovascular: Positive S1, positive S2. Regular rate and rhythm. Abdomen: Positive bowel sounds in all 4 quadrants. Soft, non-tender, non- distended. : Deferred. Rectal: Deferred. Skin: Warm, dry. Intact. Extremities: 2+ radial pulses bilaterally. No lower extremity edema. Neuro: Awake, alert, oriented x3. No gross motor or sensory deficits. Cranial nerves II through XII intact. Gait not assessed. laboratory and microbiology Laboratory Tests 12/14/24 04:50 Test 12/14/24 04:50 Range/Units Serum Glucose 115 H 74-106 mg/dL Assessment/Plan Impression: Acute hypoxemic respiratory failure Nonocclusive DVT Bowel perforation, s/p colostomy Atelectasis Events: Remains on room air. Supplemental oxygen PRN PICC line in place No new complaints. Continue antibiotics - complete course Monitor WBC Antifungal with fluconazole ID recommendations appreciated. Incentive spirometry for atelectasis. Pain control Avoid oversedation Wound care. Wound VAC in place. Eliquis BID for DVT ppx Protonix for GI ppx Physical therapy. Patient is stable for discharge from the pulmonary standpoint. Recommend outpatient sleep study due to suspicion/risk for MARNIE. Disposition per hospitalist. Labs and imaging reviewed Rest of plan as noted below Plan: Supplemental oxygen PRN Titrate to maintain sats above 92% S/p ex lap Surgery recs appreciated Colostomy care. Wound VAC in place. Incentive spirometry Continue antibiotics F/u cultures Bronchodilators Maintain euvolemia Monitor renal function Monitor electrolytes Supplement as needed Pain control Avoid oversedation F/u general surgery DVT prophylaxis Prognosis: Guarded given patient's multiple co-morbidities. Rest of plan per hospitalist and other consultants. Thank you Dr. Payne for allowing me to participate in this patient's care. Further recommendations will depend on the patient's clinical course. Please do not hesitate to contact me if you have any questions or concerns. This medical document was created using an electronic medical record system with [employer] dictation system. Although these documentations are being carefully reviewed, there may still be some phonetic and typographical changes. The errors are purely typographical, due to imperfection on the software program, and do not reflect any compromise in the patient's medical care. Dietary Evaluation Review Comments: To meet at least 75% ofpt's needs, recommend TPN kcal to be increased to 1500-2000kcal range and protein to be increased to 80-90g/d. Expected Outcomes/Goals: Pt will experience a gradual wt loss at this kcal level, yet, the appropriated nutrition support of protein and kcal can enhance pt's GI perforation healing process, and help him regain normal GI functionality Plan discussed with: Patient, Other (RN) LADI MON MD Dec 17, 2024 23:51
[2024-12-18] VITALS (10 sets, daily range): BP systolic 106–127; BP diastolic 65–80; PULSE 87–105; RESP 17–20; TEMP 98.1–99.7; O2SAT 94–100
--- NOTE | 2024-12-18 10:57 | DVHPN2 ---
Subjective Patient denies any symptoms at this time. 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 General Appearance: Alert, Oriented X3, Cooperative, mild distress HEENT: Atraumatic, PERRLA Lungs: Clear to auscultation, Normal air movement, Other (Nasal cannula at 4 L/min) Cardiovascular: Normal S1, Normal S2, Other (Sinus tachycardia) Abdomen: Other (Abdominal wound has dehiscence. Wound VAC placed.) Genitourinary: No Apparent Abnormalities (Hernandez catheter) Musculoskeletal: Normal sensory function, Normal motor function Neuro: Normal gait, Normal speech, Sensation intact, Cranial nerves 3-12 NL Skin: Dry, Intact Psych/Mental Status: Mental status NL, Mood NL Medications Current Medications Medications Dose Ordered Sig/Edis Route Start Time Stop Time Status Last Admin Dose Admin Acetaminophen 650 mg Q6HPRN PRN PO 11/11/24 23:45 12/13/24 20:02 650 MG Piperacillin Sod/ Tazobactam Sod 100 ml @ 25 mls/hr Q8HR IV 11/12/24 06:00 UNV Ondansetron HCl 4 mg Q4HPRN PRN IV 11/12/24 07:45 11/25/24 06:32 4 MG Vancomycin HCl 300 ml @ 200 mls/hr Q12H IV 11/13/24 15:00 UNV Dextrose 50 ml UD IV 11/15/24 12:00 Fat Emulsion Intravenous 200 ml/Sodium Chloride 80 meq/ Sodium Acetate 40 meq/Potassium Chloride 40 meq/ Potassium Phosphate 22 meq/ Calcium Gluconate 2.3 meq/Magnesium Sulfate 8 meq/ Multivitamins 10 ml/Chromium/ Copper/Manganese/ Zinc 1 ml/Amino Acids/Dextrose 1,582.9462 ml @ 66 mls/hr Q24H IV 11/18/24 22:00 11/19/24 21:59 Cancel Sodium Chloride 10 ml QSHIFT@10,22 IV 11/25/24 22:00 12/18/24 10:17 10 ML Potassium Chloride 100 ml @ 50 mls/hr Q2H IV 11/27/24 11:30 11/27/24 15:29 UNV Albumin Human 50 ml @ 100 mls/hr Q8H IV 11/29/24 07:45 Cancel Ipratropium [place] 0.5 mg Q6HR NEB 12/02/24 09:00 12/18/24 06:48 0.5 MG Levalbuterol HCl 0.625 mg Q6HR NEB 12/02/24 09:00 12/18/24 06:48 0.625 MG Acetaminophen/ Hydrocodone Bitart 1 tab Q4HPRN PRN PO 12/03/24 10:00 12/16/24 21:27 1 TAB Fat Emulsion Intravenous 200 ml/Sodium Chloride 160 meq/ Potassium Acetate 20 meq/Potassium Phosphate 30 meq/ Calcium Gluconate 6 meq/Magnesium Sulfate 24 meq/ Multivitamins 10 ml/Chromium/ Copper/Manganese/ Zinc 1 ml/Amino Acids/Dextrose 1,886.7214 ml @ 78 mls/hr [id number] IV 12/03/24 22:00 12/03/24 22:00 Cancel Carvedilol 25 mg Q12HR PO 12/04/24 22:00 12/18/24 10:17 25 MG Cefepime HCl 50 ml @ 12.5 mls/hr Q8H IV 12/05/24 20:00 12/18/24 03:44 12.5 MLS/HR Daptomycin 630 mg/ Sodium Chloride 50 ml @ 100 mls/hr Q24H IV 12/07/24 23:00 12/17/24 23:11 100 MLS/HR Fluconazole 200 mg DAILY PO 12/10/24 10:00 12/18/24 10:16 200 MG Metronidazole 500 mg Q8HR PO 12/10/24 14:00 12/18/24 05:56 500 MG Apixaban 5 mg BID PO 12/10/24 22:00 12/18/24 10:16 5 MG Pantoprazole Sodium 40 mg DAILY@0600 PO 12/11/24 06:00 12/18/24 05:55 40 MG Melatonin 10 mg HS PRN PO 12/12/24 20:45 12/14/24 03:08 10 MG Laboratory Results Laboratory Tests 12/14/24 04:50 Urinalysis Test 11/11/24 20:50 Urine Color Yellow (Yellow) Urine Clarity Clear (Clear) Urine pH 6.0 (5.0-9.0) Urine Specific [place] 1.021 (1.001-1.035) Urine Protein 1+ (Negative) H Urine Ketones Negative (Negative) Urine Blood 2+ /uL (Negative) H Urine Nitrite Negative (Negative) Urine Bilirubin Negative (Negative) Urine Urobilinogen 3 mg/dL (Negative) H Urine Leukocyte Esterase Negative /uL (Negative) Urine RBC 1 /hpf (0 - 3) Urine Microscopic WBC 6 /HPF (0-3) H Urine Squamous Epithelial Cells None seen /hpf (<5) Urine Bacteria None seen /hpf (None Seen) Urine Mucus Few (None Seen) Urine Glucose 1+ mg/dL (Normal) H Microbiology Microbiology Date/Time Source Procedure Growth Status 12/01/24 17:30 Blood Blood Culture - Final NO GROWTH AFTER 5 DAYS OF INCUBATION. Complete 11/22/24 10:15 Abdomen Gram Stain - Final Complete 11/22/24 10:15 Abdomen Anaerobic Culture - Final Complete 11/22/24 10:15 Aerobic Culture - Final Escherichia coli Enterococcus faecium - VRE Complete 11/18/24 10:20 Voided Urine Urine Culture - Final Complete 11/15/24 13:15 Aspirate Gram Stain - Final Complete 11/15/24 13:15 Body Fluid Culture - Final Escherichia coli Complete Labs and/or images reviewed: Labs reviewed by me, Image(s) reviewed by me Assessment/Plan Assessment/Plan Impression: -severe sepsis secondary to perforated diverticulitis -obesity -hypokalemia -hyponatremia -right upper extremity DVT, repeat ultrasound reports resolution -Atelectasis Plan: Events: Plans for discharge today once wound VAC has been exchange. All discharge planning was discussed with the patient. NO CHANGE IN A/P ON 12/18/2024. APPARENTLY, ALL DME WE WILL BE PROVIDED TODAY. -IV antibiotics: Continue per Infectious Disease -continue diet as tolerated -PPI -pain management -out of bed as tolerated, physical therapy -incentive spirometer -social service consultation for DC planning Total time spent with patient discussing and formulating plan of care: 35 minutes. This medical document was created using an electronic medical record system with [employer] dictation system. Although this document has been carefully reviewed, there may still be some phonetic and typographical errors. These areas are purely typographical due to imperfections of the software programs, and do not reflect any compromise in the patient's medical care. Plan discussed with: Patient, Other (RN) Date of Service: Dec 18, 2024 Billing Provider: SANDRA GOODMAN NP Common Visit Codes: [id number] INP/OBS CARE(MOD) SANDRA GOODMAN NP Dec 18, 2024 10:57
--- NOTE | 2024-12-18 23:51 | DVHPN2 ---
Progress Note - Dictate Date Seen: Dec 18, 2024 Medical Necessity Reason Pt with a Central, PICC or Fol: Yes The following are medically ne: PICC Line Subjective Patient seen and examined at bedside. Breathing comfortably on room air Overnight events reviewed. vital signs Vital Sign Date Time Temp Pulse Resp B/P (MAP) Pulse Ox O2 Delivery O2 Flow Rate FiO2 12/18/24 13:07 103 18 100 12/18/24 13:01 Room Air* 0 21 12/18/24 13:00 99.7 110/67 (81) 99.7 Total Intake and Output 12/17/24 12/17/24 12/18/24 15:00 23:00 07:00 Intake Total 50 ml 594 ml 4100 ml Output Total 825 ml 1400 ml Balance 50 ml -231 ml 2700 ml medications Current Medications Medications Dose Ordered Sig/Edis Route Start Time Stop Time Status Last Admin Dose Admin Piperacillin Sod/ Tazobactam Sod 100 ml @ 25 mls/hr Q8HR IV 11/12/24 06:00 UNV Vancomycin HCl 300 ml @ 200 mls/hr Q12H IV 11/13/24 15:00 UNV Fat Emulsion Intravenous 200 ml/Sodium Chloride 80 meq/ Sodium Acetate 40 meq/Potassium Chloride 40 meq/ Potassium Phosphate 22 meq/ Calcium Gluconate 2.3 meq/Magnesium Sulfate 8 meq/ Multivitamins 10 ml/Chromium/ Copper/Manganese/ Zinc 1 ml/Amino Acids/Dextrose 1,582.9462 ml @ 66 mls/hr Q24H IV 11/18/24 22:00 11/19/24 21:59 Cancel Potassium Chloride 100 ml @ 50 mls/hr Q2H IV 11/27/24 11:30 11/27/24 15:29 UNV Albumin Human 50 ml @ 100 mls/hr Q8H IV 11/29/24 07:45 Cancel Fat Emulsion Intravenous 200 ml/Sodium Chloride 160 meq/ Potassium Acetate 20 meq/Potassium Phosphate 30 meq/ Calcium Gluconate 6 meq/Magnesium Sulfate 24 meq/ Multivitamins 10 ml/Chromium/ Copper/Manganese/ Zinc 1 ml/Amino Acids/Dextrose 1,886.7214 ml @ 78 mls/hr [id number] IV 12/03/24 22:00 12/03/24 22:00 Cancel objective Gen.: Patient lying in bed in no apparent distress. On room air. Head: Normocephalic, atraumatic. Eyes: EOMI/PERRLA. Ears: Normal hearing. Normal anatomy. Neck/trachea: Trachea midline, supple. Nose: Normal external anatomy. Mouth: Moist mucous membranes. Chest: Decreased air entry bilaterally. No wheezing or rhonchi. Cardiovascular: Positive S1, positive S2. Regular rate and rhythm. Abdomen: Positive bowel sounds in all 4 quadrants. Soft, non-tender, non- distended. : Deferred. Rectal: Deferred. Skin: Warm, dry. Intact. Extremities: 2+ radial pulses bilaterally. No lower extremity edema. Neuro: Awake, alert, oriented x3. No gross motor or sensory deficits. Cranial nerves II through XII intact. Gait not assessed. laboratory and microbiology Laboratory Tests 12/14/24 04:50 Test 12/14/24 04:50 Range/Units Serum Glucose 115 H 74-106 mg/dL Assessment/Plan Impression: Acute hypoxemic respiratory failure Nonocclusive DVT Bowel perforation, s/p colostomy Atelectasis Events: Remains on room air. Supplemental oxygen PRN PICC line in place No new complaints. Head of bed elevation Aspiration precautions Continue antibiotics - complete course Monitor WBC Antifungal with fluconazole ID recommendations appreciated. Incentive spirometry for atelectasis. Pain control Avoid oversedation Wound care. Wound VAC in place. Eliquis BID for DVT ppx Protonix for GI ppx Physical therapy. Patient is stable for discharge from the pulmonary standpoint. Recommend outpatient sleep study due to suspicion/risk for MARNIE. Disposition per hospitalist. Labs and imaging reviewed Rest of plan as noted below Plan: Supplemental oxygen PRN Titrate to maintain sats above 92% S/p ex lap Surgery recs appreciated Colostomy care. Wound VAC in place. Incentive spirometry Continue antibiotics F/u cultures Bronchodilators Maintain euvolemia Monitor renal function Monitor electrolytes Supplement as needed Pain control Avoid oversedation F/u general surgery DVT prophylaxis Prognosis: Guarded given patient's multiple co-morbidities. Rest of plan per hospitalist and other consultants. Thank you Dr. Payne for allowing me to participate in this patient's care. Further recommendations will depend on the patient's clinical course. Please do not hesitate to contact me if you have any questions or concerns. This medical document was created using an electronic medical record system with [employer] system. Although these documentations are being carefully reviewed, there may still be some phonetic and typographical changes. The errors are purely typographical, due to imperfection on the software program, and do not reflect any compromise in the patient's medical care. Dietary Evaluation Review Comments: To meet at least 75% ofpt's needs, recommend TPN kcal to be increased to 1500-2000kcal range and protein to be increased to 80-90g/d. Expected Outcomes/Goals: Pt will experience a gradual wt loss at this kcal level, yet, the appropriated nutrition support of protein and kcal can enhance pt's GI perforation healing process, and help him regain normal GI functionality Plan discussed with: Patient, Other (GUILLERMO Joy) LADI MON MD Dec 18, 2024 23:51
== END 2024-12-18 16:05 | disposition home health service (06) | DRG 710 ==
LOC: ER 19:23 → OVERFLOW 23:29 → CENTRAL 11-12 19:17 → TELE-CENTR 11-12 22:28 → CENTRAL 11-16 15:17 → ICU WEST 11-22 15:34 → DOU IN ICU 11-26 20:50 → ICU CENTRL 11-30 13:40 → DOU IN ICU 12-03 18:37 → TELE-CENTR 12-13 21:28 → CENTRAL 12-14 15:27
PROVIDERS: ADMIT Nurse Practitioner Acute Care; ATTEND Nurse Practitioner Acute Care
PROC: 02HV33Z Insertion of Infusion Device into Superior Vena Cava, Percutaneous Approach (ICD-10-PCS; 2024-11-15)
PROC: B548ZZA Ultrasonography of Superior Vena Cava, Guidance (ICD-10-PCS; 2024-11-15)
PROC: 0D9N30Z Drainage of Sigmoid Colon with Drainage Device, Percutaneous Approach (ICD-10-PCS; 2024-11-15)
PROC: 0DTE0ZZ Resection of Large Intestine, Open Approach (ICD-10-PCS; 2024-11-22)
PROC: 0D1M0Z4 Bypass Descending Colon to Cutaneous, Open Approach (ICD-10-PCS; principal; 2024-11-22 08:42)
PROC: 30233N1 Transfusion of Nonautologous Red Blood Cells into Peripheral Vein, Percutaneous Approach (ICD-10-PCS; 2024-11-24)
PROC: 02HV33Z Insertion of Infusion Device into Superior Vena Cava, Percutaneous Approach (ICD-10-PCS; 2024-11-25)
PROC: B548ZZA Ultrasonography of Superior Vena Cava, Guidance (ICD-10-PCS; 2024-11-25)
DX: A41.9 Sepsis, unspecified organism (principal); J96.01 Acute respiratory failure with hypoxia; K65.1 Peritoneal abscess; J18.9 Pneumonia, unspecified organism; J90 Pleural effusion, not elsewhere classified; I82.621 Acute embolism and thrombosis of deep veins of right upper extremity; E88.09 Other disorders of plasma-protein metabolism, not elsewhere classified; E87.1 Hypo-osmolality and hyponatremia; R18.8 Other ascites; Z99.81 Dependence on supplemental oxygen; I82.A11 Acute embolism and thrombosis of right axillary vein; K57.20 Diverticulitis of large intestine with perforation and abscess without bleeding; Z20.822 Contact with and (suspected) exposure to COVID-19; D64.9 Anemia, unspecified; Z68.41 Body mass index [BMI] 40.0-44.9, adult; E66.01 Morbid (severe) obesity due to excess calories; R65.20 Severe sepsis without septic shock; E87.6 Hypokalemia; E80.7 Disorder of bilirubin metabolism, unspecified; N43.3 Hydrocele, unspecified; T81.31XA Disruption of external operation (surgical) wound, not elsewhere classified, initial encounter; N50.3 Cyst of epididymis; N39.0 Urinary tract infection, site not specified; J98.11 Atelectasis; R73.9 Hyperglycemia, unspecified; Z16.21 Resistance to vancomycin; B96.20 Unspecified Escherichia coli [E. coli] as the cause of diseases classified elsewhere; B95.2 Enterococcus as the cause of diseases classified elsewhere; E80.6 Other disorders of bilirubin metabolism; R74.01 Elevation of levels of liver transaminase levels; G47.33 Obstructive sleep apnea (adult) (pediatric); Z28.310 Unvaccinated for COVID-19; Z90.49 Acquired absence of other specified parts of digestive tract; Z86.16 Personal history of COVID-19; Z82.49 Family history of ischemic heart disease and other diseases of the circulatory system; Z83.3 Family history of diabetes mellitus; Y83.8 Other surgical procedures as the cause of abnormal reaction of the patient, or of later complication, without mention of misadventure at the time of the procedure
CPT/HCPCS: 36415; 36569; 36600; 50432; 70450; 71045; 71275; 72192; 74018; 74176; 74177; 74250; 75989; 76705; 76870; 76937; 80048; 80053; 80069; 80202; 80307; 81001; 82565; 82805; 82962; 83036; 83605; 83690; 83735; 84100; 84478; 84484; 85007; 85025; 85027; 85610; 85652; 85730; 86850; 86900; 86901; 86920; 87040; 87070; 87075; 87077; 87081; 87086; 87186; 87205; 87426; 87804; 93005; 93306; 93971; 94640; 97110; 97116; 97530; G0378; J0330; J0692; J1100; J1815; J2003; J2185; J2248; J2250; J2405; J2470; J2543; J2704; J3480; J3490; J7131